=== PATIENT | female | born 1940 | race Caucasian/White ===

== ENCOUNTER 2019-07-08 10:37 | Outpatient (CLI) | payer MEDICARE, SELFPAY ==
--- NOTE | ~2019-07-08 | MM_ITS ---
EXAMINATION: MM screening [facility] BI w gildardo HISTORY: Screening mammogram TECHNIQUE: Craniocaudal and mediolateral oblique 3-D tomosynthesis images were obtained and synthetic 2-D images were generated. CAD analysis was submitted and interpreted. COMPARISON: 06/18/2018, 06/16/2017, 05/20/2016 BREAST PARENCHYMAL COMPOSITION: There are scattered areas of fibroglandular density. FINDINGS: RIGHT BREAST: There is a 7 mm low density mass in the anterior/middle third of the outer breast 5 cm from the nipple (CC slice: , MLO slice: ). LEFT BREAST: There is no evidence of suspicious mass, calcification, or architectural distortion to s uggest malignancy. There has been no significant interval change. IMPRESSION: 1. Right breast mass. 2. Additional mammographic views and possible breast ultrasound are recommended. BI-RADS Category 0: Incomplete: Needs additional imaging evaluation. Reviewed, dictated and finalized at location A. IMPRESSION: 1. Right breast mass. 2. Additional mammographic views and possible breast ultrasound are recommended . BI-RADS Category 0: Incomplete: Needs additional imaging evaluation.
== END 2019-07-08 10:38 | disposition home or self-care (01) ==
LOC: ANHIMG 10:41
PROVIDERS: PCP Internal Medicine; Visit Provider Internal Medicine
DX: Z12.31 Encounter for screening mammogram for malignant neoplasm of breast (principal); R92.8 Other abnormal and inconclusive findings on diagnostic imaging of breast
CPT/HCPCS: 77063; 77067

== ENCOUNTER 2019-07-15 13:06 | Outpatient (CLI) | payer MEDICARE, SELFPAY ==
--- NOTE | ~2019-07-15 | MMUS_ITS ---
EXAMINATION: MM diagnostic mammo unilat RT, US breast RT limited HISTORY: Follow-up right breast mass TECHNIQUE: Additional 3-D tomosynthesis images of the right breast were performed and synthetic 2-D i mages were generated. CAD analysis was submitted and interpreted. High resolution right breast ultras ound was performed. COMPARISON: 07/08/2019 FINDINGS: MAMMOGRAPHIC FINDINGS: The breasts are heterogenously dense, which may obscure small masses. There is a 7 mm circumscribed m ass mid outer aspect of the right breast. There are no suspicious calcifications or architectural dis tortion. ULTRASOUND: Right breast ultrasound: At 9:00, 2 cm from the nipple, there is a simple cyst measuring 7 x 7 x 4 mm corresponding to the mas s identified by mammogram. No other discrete mass is identified. No sonographic evidence for malignan cy. IMPRESSION: 1. No evidence for malignancy in the right breast. Benign findings. 2. Routine yearly screening mammogram and regular clinical breast examination are recommended. BI-RADS Category 2: Benign finding(s). Reviewed, dictated and finalized at location A. IMPRESSION: 1. No evidence for malignancy in the right breast. Benign findings. 2. Routine yearly screening mammogram and regular clinical breast examination a re recommended. BI-RADS Category 2: Benign finding(s).
== END 2019-07-15 13:07 | disposition home or self-care (01) ==
LOC: ANHIMG 13:08
PROVIDERS: PCP Internal Medicine; Visit Provider Internal Medicine
DX: R92.8 Other abnormal and inconclusive findings on diagnostic imaging of breast (principal)
CPT/HCPCS: 76642; 77065

== ENCOUNTER 2020-07-16 14:45 | Outpatient (CLI) | payer MEDICARE, SELFPAY ==
--- NOTE | ~2020-07-16 | MM_ITS ---
EXAMINATION: MM screening [facility] BI w igldardo HISTORY: Screening TECHNIQUE: Craniocaudal and mediolateral oblique 3-D tomosynthesis images were obtained and synthetic 2-D images were generated. CAD analysis was submitted and interpreted. COMPARISON: Comparison to multiple prior studies sequentially, with oldest reviewed study dated 11/2015. BREAST PARENCHYMAL COMPOSITION: Breast composed of scattered areas of fibroglandular density FINDINGS: There is no evidence of suspicious mass, calcification, or architectural distortion to sugg est malignancy in either breast. There has been no suspicious interval change. IMPRESSION: 1. No mammographic evidence of malignancy. 2. Recommend routine screening mammography in one year. BI-RADS Category 1: Negative Reviewed, dictated and finalized at location A.
== END 2020-07-16 14:46 | disposition home or self-care (01) ==
PROVIDERS: PCP Internal Medicine; Visit Provider Internal Medicine
DX: Z12.31 Encounter for screening mammogram for malignant neoplasm of breast (principal)
CPT/HCPCS: 77063; 77067

== ENCOUNTER 2021-08-17 14:18 | Outpatient (CLI) | payer MEDICARE, SELFPAY ==
--- NOTE | ~2021-08-17 | MM_ITS ---
EXAMINATION: MM screening [facility] BI w gildardo HISTORY: Screening mammogram TECHNIQUE: Craniocaudal and mediolateral oblique 3-D tomosynthesis images were obtained and synthetic 2-D images were generated. CAD analysis was submitted and interpreted. COMPARISON: 07/16/2020, 07/15/2019, 07/18/2019, 06/18/2018 BREAST PARENCHYMAL COMPOSITION: There are scattered areas of fibroglandular density. FINDINGS: There is no suspicious mass, calcification, or architectural distortion to suggest malignan cy in either breast. There has been no suspicious interval change. IMPRESSION: 1. No mammographic evidence of malignancy. 2. Recommend routine screening mammography while the patient remains in good health. BI-RADS Category 1: Negative Reviewed, dictated and finalized at location A. IMPRESSION: 1. No mammographic evidence of malignancy. 2. Recommend routine screening mammography while the patient remains in good he alth. BI-RADS Category 1: Negative
== END 2021-08-17 14:19 | disposition home or self-care (01) ==
PROVIDERS: PCP Internal Medicine; Visit Provider Internal Medicine
DX: Z12.31 Encounter for screening mammogram for malignant neoplasm of breast (principal)
CPT/HCPCS: 77063; 77067

== ENCOUNTER 2022-04-21 11:10 | Outpatient (CLI) | payer MEDICARE, SELFPAY ==
--- NOTE | ~2022-04-21 | XR_ITS ---
XR hip BI 2V w AP pelvis DATE: 04/21/2022 11:35 INDICATION: Bilateral groin pain, right greater than left TECHNIQUE: AP pelvis. AP and lateral views of each hip. COMPARISON: July 28, 2011 left hip 01/20/2011 bilateral hips FINDINGS: Osteitis pubis. Osteopenia. Normal alignment at the pubic symphysis and sacroiliac joints as well as hip joints. No pelvic fracture or bone destruction. No fracture or dislocation, avascular necrosis or bone destru ction of either hip is detected. There is a prominent of fecal material in the rectum and colon. IMPRESSION: Osteitis pubis Osteopenia Reviewed, dictated and finalized at location L. RINARY MILK SPECIALIST IMPRESSION: Osteitis pubis Osteopenia
== END 2022-04-21 11:11 | disposition home or self-care (01) ==
LOC: ANHIMG 11:16
PROVIDERS: PCP Internal Medicine; Visit Provider Nurse Practitioner Adult Health
DX: M25.559 Pain in unspecified hip (principal); M86.8X8 Other osteomyelitis, other site; M85.859 Other specified disorders of bone density and structure, unspecified thigh
CPT/HCPCS: 73521

== ENCOUNTER 2022-11-11 13:28 | Outpatient (CLI) | payer MEDICARE, SELFPAY ==
--- NOTE | ~2022-11-11 | MM_ITS ---
EXAMINATION: MM screening [facility] BI w gildardo HISTORY: Screening mammogram TECHNIQUE: Craniocaudal and mediolateral oblique 3-D tomosynthesis images were obtained and synthetic 2-D images were generated. CAD analysis was submitted and interpreted. COMPARISON: 08/17/2021, 07/16/2020, 07/15/2019, 07/08/2019 BREAST PARENCHYMAL COMPOSITION: There are scattered areas of fibroglandular density. FINDINGS: No suspicious mass, calcification, or architectural distortion are identified in either nyasia ast to suggest malignancy. There has been no suspicious interval change. IMPRESSION: 1. No mammographic evidence of malignancy. 2. Recommend routine screening mammography while the patient remains in good health. BI-RADS Category 1: Negative Reviewed, dictated and finalized at location A. IMPRESSION: 1. No mammographic evidence of malignancy. 2. Recommend routine screening mammography while the patient remains in good he alth. BI-RADS Category 1: Negative
== END 2022-11-11 13:29 | disposition home or self-care (01) ==
PROVIDERS: PCP Internal Medicine; Visit Provider Internal Medicine
DX: Z12.31 Encounter for screening mammogram for malignant neoplasm of breast (principal)
CPT/HCPCS: 77063; 77067

== ENCOUNTER 2024-02-09 10:07 | Outpatient (CLI) | payer MEDICARE, SELFPAY ==
--- NOTE | ~2024-02-09 | MM_ITS ---
EXAMINATION: MM screening [facility] BI w gildardo HISTORY: Screening TECHNIQUE: Craniocaudal and mediolateral oblique 3-D tomosynthesis images were obtained and synthetic 2-D images were generated. CAD analysis was submitted and interpreted. COMPARISON: Comparison to multiple prior studies sequentially, with oldest reviewed study dated 06/18. BREAST PARENCHYMAL COMPOSITION: Not dense: There are scattered areas of fibroglandular density. FINDINGS: There is no evidence of suspicious mass, calcification, or architectural distortion to sugg est malignancy in either breast. There has been no suspicious interval change. IMPRESSION: 1. No mammographic evidence of malignancy. 2. Recommend routine screening mammography in one year. BI-RADS Category 1: Negative Reviewed, dictated and finalized at location B. ER KILLER
== END 2024-02-09 10:08 | disposition home or self-care (01) ==
LOC: ANHIMG 10:12
PROVIDERS: PCP Internal Medicine; Visit Provider Internal Medicine
DX: Z12.31 Encounter for screening mammogram for malignant neoplasm of breast (principal)
CPT/HCPCS: 77063; 77067

== ENCOUNTER 2024-03-31 09:44 | Emergency (ER) | payer MEDICARE, SELFPAY ==
--- NOTE | ~2024-03-31 | XR_ITS ---
EXAMINATION: XR chest 2V DATE: 03/31/2024 10:23 INDICATION: Cough. Failed antibiotic therapy. TECHNIQUE: PA and lateral views of the chest were obtained. COMPARISON: Chest radiograph dated 11/03/2006 FINDINGS: The lungs remain clear with no focal airspace opacities, pulmonary edema, pleural effusion or pneumot horax. The cardiomediastinal silhouette is normal. Moderate thoracic spondylosis. Cholecystectomy cli ps in the upper abdomen. IMPRESSION: 1. No acute cardiopulmonary disease. Reviewed, dictated and finalized at location A. IUM CARD CANCELLATION CLERK
[2024-03-31 09:52] VITALS: BP 137/50; PULSE 85; RESP 20; TEMP 36.8; O2SAT 96
--- NOTE | 2024-03-31 10:13 | ED_ITS ---
HPI - URI/Sore Throat General Chief Complaint: Upper Respiratory Infection Stated Complaint: breathing prob, cough History of Present Illness HPI Narrative: patient is an 84-year-old female, past medical history significant for spinal stenosis and chronic back pain, presents to [facility] with 2 week history of URI symptoms, for which she completed Zithromax and oral steroids 4 days ago. She states that she never really felt much better while taking the medication and yesterday she began feeling worse, now with a productive cough. She has had some mild shortness of breath. She denies chest pain, orthopnea, abdominal pain, nausea vomiting or diarrhea. She has had no urinary symptoms. She does have a rescue inhaler but has not used it today. She denies any additional associated symptoms modifying factors. Related Data Home Medications ?Medication ?Instructions ?Recorded ?Confirmed ?Last Taken ?Type albuterol sulfate 90 mcg/actuation inhalation 03/31/24 Unknown History aerosol inhaler atorvastatin 10 mg tablet mg 03/31/24 Unknown History omeprazole magnesium PO 03/31/24 Unknown History Allergies Allergy/AdvReac Type Severity Reaction Status Date / Time latex Allergy Unknown Unknown Verified 03/31/24 09:59 lovastatin Allergy Unknown STATINS Verified 05/24/22 15:15 CAUSE BRUISING NKFA Allergy Unknown Unknown Uncoded 05/24/22 15:15 Review of Systems ENT: Comments: refer to HPI Respiratory: Comments: refer to HPI [facility] Past Medical History Medical History Lumbar spondylosis Low back pain Arthritis of finger Pain in right hand Spinal stenosis Sacroiliac pain Surgical History Surgical History H/O shoulder surgery History of hysterectomy Hx of cholecystectomy Family History Family History Other Acute myocardial infarction Breast cancer Diabetes mellitus Heart disease Hypertension Social History Social History Smoking status: Never smoker Alcohol intake: never Substance use: never Substance use type: does not use Lack of Transportation: No Lack of Food: Never True Current Housing: I Have Housing Concerned About Future Housing: No Difficulty Paying Gas/Electric Bills: No Difficulty Paying for Meds: No Currently Unemployed: No Education: Decline to Answer Difficulty w/ Childcare or Family Care: No Living arrangements: with family Exam Const: General: healthy appearing, no acute distress and alert Nutritional Appearance: well nourished Orientation/consciousness: patient oriented x3 Limitations: no limitations Other: well-groomed HENMT: Head: normal to inspection Face/Nose/Sinus: Normal external nose present and Normal nares present Mouth: Yes Normal oral and palatal mucosa present, Yes lip normal and Yes moist mucous membranes Teeth and gingiva: dentition normal Throat: posterior oropharynx normal and uvula midline Eyes: Conjunctivae: conjunctivae normal Pupils: Equal, round and reactive pupils present EOM: EOMs intact bilaterally Direct Ophthalmoscopy: no photophobia Neck: Neck: normal visual inspection, no lymphadenopathy and no meningeal signs Resp: Effort & Inspection: normal respiratory effort Auscultation: crackles on the right at the base Other: no wheezing noted, no stridor Cardio: Rate: regular rate Rhythm: regular rhythm Back/Spine/Pelvis: Back: no CVA tenderness Skin: General skin exam: normal color Rashes: no rashes Wounds: no wounds Neuro: General: patient oriented x3, moves all extremities, no meningeal signs, no focal motor deficits and CN's II-XI intact bilaterally Cranial nerves: Yes Nystagmus not present Speech: normal speech Gait exam (Neuro): Normal gait present Extrem: General: normal to inspection, no clubbing, cyanosis or edema and no pedal edema Other: no calf tenderness to palpation, no palpable cord bilaterally, no pitting edema or asymmetry of the lower limbs Psych: Mental Status: mental status grossly normal Course Course Level of Care: [facility] Visit ([id number]) Vital Signs Vital signs: Vital Signs Temperature 36.8 C 03/31/24 09:52 Pulse Rate 85 03/31/24 09:52 Respiratory Rate 20 03/31/24 09:52 Blood Pressure 137/50 L 03/31/24 09:52 Pulse Oximetry 96 03/31/24 09:52 Oxygen Delivery Room Air 03/31/24 09:52 Temperature 36.8 C 03/31/24 09:52 Pulse Rate 85 03/31/24 09:52 Respiratory Rate 20 03/31/24 09:52 Blood Pressure 137/50 L 03/31/24 09:52 Pulse Oximetry 96 03/31/24 09:52 Oxygen Delivery Room Air 03/31/24 09:52 Discharge Plan Discharge Clinical Impression: Bronchitis Patient Disposition: Home, Self-Care Condition: Stable Instructions: Antibiotic Form, Acute Bronchitis (ED) Additional Instructions: START AND COMPLETE ORAL STEROIDS DIRECTED. PUSH FLUIDS AND REST. USE INHALER EVERY 4-6 HOURS FOR THE NEXT 1-2 DAYS, THEN YOU MAY REDUCE THE FREQUENCY TO EVERY 4-6 HOURS NEEDED FOR WHEEZING. IF YOUR SYMPTOMS WORSEN IN ANY WAY, PROCEED TO THE EMERGENCY DEPARTMENT. OTHERWISE FOLLOW-UP WITH YOUR PRIMARY CARE PROVIDER IN 3-5 DAYS WITHOUT FAIL. Patient Language: Syriac Prescriptions: New prednisone 10 mg tablet 10 mg PO DIRECTED Qty: 38 0RF Rx Instructions: TAKE 4 TABS PO DAILY DAYS 1-5, THEN 3 TABS PO DAILY DAYS 6-8, THEN 2 TABS PO DAILY DAYS 9-11 THEN 1 TAB PO DAILY DAYS 12-14 No Action atorvastatin 10 mg tablet albuterol sulfate 90 mcg/actuation HFA aerosol inhaler INHALATION omeprazole magnesium [Prilosec OTC] PO Follow-up/Referrals: Agustín,Korey Rocha MD [Primary Care Provider] - Time of Disposition: 10:49
--- NOTE | 2024-03-31 10:39 | ED.URI ---
HPI - URI/Sore Throat General Chief Complaint: Upper Respiratory Infection Stated Complaint: breathing prob, cough History of Present Illness HPI Narrative: patient is a 84-year-old female, presents to [facility] with 2 week history of URI symptoms, for which she was treated a little over 1 week ago with Zithromax, short prednisone course and an inhaler, completing therapy 4 days ago with his home symptom improvement until yesterday when she began feeling unwell again. He reports a productive cough, malaise and laryngitis. She has not had fever. She denies hemoptysis, nausea vomiting diarrhea or urinary symptoms. She has not used her inhaler today. She denies any additional associated symptoms modifying factors. Related Data Home Medications ?Medication ?Instructions ?Recorded ?Confirmed ?Last Taken ?Type albuterol sulfate 90 mcg/actuation inhalation 03/31/24 Unknown History aerosol inhaler atorvastatin 10 mg tablet mg 03/31/24 Unknown History omeprazole magnesium PO 03/31/24 Unknown History Allergies Allergy/AdvReac Type Severity Reaction Status Date / Time latex Allergy Unknown Unknown Verified 03/31/24 09:59 lovastatin Allergy Unknown STATINS Verified 05/24/22 15:15 CAUSE BRUISING NKFA Allergy Unknown Unknown Uncoded 05/24/22 15:15 Review of Systems ENT: Comments: refer to HPI Respiratory: Comments: Refer to HPI [facility] Past Medical History Medical History Lumbar spondylosis Low back pain Arthritis of finger Pain in right hand Spinal stenosis Sacroiliac pain Surgical History Surgical History H/O shoulder surgery History of hysterectomy Hx of cholecystectomy Family History Family History Other Acute myocardial infarction Breast cancer Diabetes mellitus Heart disease Hypertension Social History Social History Smoking status: Never smoker Alcohol intake: never Substance use: never Substance use type: does not use Lack of Transportation: No Lack of Food: Never True Current Housing: I Have Housing Concerned About Future Housing: No Difficulty Paying Gas/Electric Bills: No Difficulty Paying for Meds: No Currently Unemployed: No Education: Decline to Answer Difficulty w/ Childcare or Family Care: No Living arrangements: with family Exam Const: General: cooperative Nutritional Appearance: average body habitus and well nourished HENMT: Head: normal to inspection, No palpable skull fracture present and normocephalic Ears: hearing grossly normal bilaterally, external ears normal, TM's normal bilaterally, TM normal on the right, TM normal on the left and EAC's normal Face and sinus: normal facial exam and sinuses nontender Mouth: Yes Normal oral and palatal mucosa present, Yes lip normal, Yes tongue normal, Yes oropharynx normal and Yes moist mucous membranes Eyes: General: appearance normal, both eyes and all related structures Conjunctivae: conjunctivae normal Neck: Neck: normal visual inspection, full ROM and no lymphadenopathy Thyroid: thyroid normal Chest: Chest palpation & inspection: normal inspection of the chest Resp: Effort & Inspection: normal respiratory effort and able to speak in complete sentences Auscultation: crackles on the right at the base Cardio: Jugular venous distension: no JVD Rate: regular rate Rhythm: regular rhythm Heart sounds: S1 normal heart sound present and S2 normal heart sound present Peripheral pulses: Peripheral pulses 2+ throughout Back/Spine/Pelvis: Back: no CVA tenderness Cervical Spine: normal cervical lordosis Skin: General skin exam: normal color and no rashes or lesions noted Lesions: no lesions Rashes: no rashes Neuro: General: oriented to person, oriented to place, oriented to time, patient oriented x3, gait normal, tone normal, moves all extremities, no focal motor deficits and CN's II-XI intact bilaterally Extrem: General: normal to inspection, full ROM, capillary refill normal, normal exam except as noted, no pedal edema and no calf tenderness Course Course Emergency Course: chest x-ray is unremarkable for acute findings. Suspect patient has a postinflammatory state, will resume steroids for a steroid taper, she is encouraged to use her inhaler every 4-6 hours next 1-2 days, she may take Zyrtec or Claritin as directed [id number]. She is encouraged to proceed to the ER if her condition worsens in any way. Patient verbalized understanding she is agreeable to discharge plan of care. Level of Care: [facility] Visit ([id number]) Vital Signs Vital signs: Vital Signs Temperature 36.8 C 03/31/24 09:52 Pulse Rate 85 03/31/24 09:52 Respiratory Rate 20 03/31/24 09:52 Blood Pressure 137/50 L 03/31/24 09:52 Pulse Oximetry 96 03/31/24 09:52 Oxygen Delivery Room Air 03/31/24 09:52 Temperature 36.8 C 03/31/24 09:52 Pulse Rate 85 03/31/24 09:52 Respiratory Rate 20 03/31/24 09:52 Blood Pressure 137/50 L 03/31/24 09:52 Pulse Oximetry 96 03/31/24 09:52 Oxygen Delivery Room Air 03/31/24 09:52 MDM - URI/Sore Throat MDM Narrative Medical decision making narrative: Prednisone taper Differential Diagnosis Differential diagnosis: Likely upper respiratory infection, otitis media, sinusitis, viral infection, bronchitis and other ( pneumonia) Discharge Plan Discharge Clinical Impression: Bronchitis Patient Disposition: Home, Self-Care Condition: Stable Instructions: Antibiotic Form, Acute Bronchitis (ED) Additional Instructions: START AND COMPLETE ORAL STEROIDS DIRECTED. PUSH FLUIDS AND REST. USE INHALER EVERY 4-6 HOURS FOR THE NEXT 1-2 DAYS, THEN YOU MAY REDUCE THE FREQUENCY TO EVERY 4-6 HOURS NEEDED FOR WHEEZING. IF YOUR SYMPTOMS WORSEN IN ANY WAY, PROCEED TO THE EMERGENCY DEPARTMENT. OTHERWISE FOLLOW-UP WITH YOUR PRIMARY CARE PROVIDER IN 3-5 DAYS WITHOUT FAIL. Patient Language: Lithuanian Prescriptions: New prednisone 10 mg tablet 10 mg PO DIRECTED Qty: 38 0RF Rx Instructions: TAKE 4 TABS PO DAILY DAYS 1-5, THEN 3 TABS PO DAILY DAYS 6-8, THEN 2 TABS PO DAILY DAYS 9-11 THEN 1 TAB PO DAILY DAYS 12-14 No Action atorvastatin 10 mg tablet albuterol sulfate 90 mcg/actuation HFA aerosol inhaler INHALATION omeprazole magnesium [Prilosec OTC] PO Follow-up/Referrals: Agustín,Korey Rocha MD [Primary Care Provider] - Time of Disposition: 10:49
--- OUTSIDE RECORDS SUMMARY | 2024-04-07 05:35 | XMS_ITS | Encounter Summary ---
Author Organization [facility] Address [address] [place] [address] Care Team Providers Care Vine Pruner Name Role Phone Korey Randolph MD Primary Care Provider Reason for Visit * Reason Comments Double Vision Strabismus Encounter Details Date Type Department Care Team (Late st Contact Info) Description 10/02/2017 10:45 AM CDT Office Visit [facility] Ophthalmology [facility] [place] [address] Denice Martinez Esotropia (Primary Dx); Diplopia Social History Tobacco Use Types Packs/Day Years Used Date Smoking Tobacco: Never Smokeless Tobacco: Never Sex and Gender Information Value Date Recorded Sex Assigned at Not on file Gender Identity Not on file Sexual Orientation Not on file documented as of this encounter Progress Notes * Denice Martinez - 10/02/2017 5:47 PM CDT Impression: Has been noting some overall decrease in the vision in both eyes since last visit. 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 She reads with OTC readers without prism. Today's exam shows a slight increase in the ET but she is still able to fuse with the 10^ LESLY Fresnel prism. She benefits from +3.00 readers (was using +2.50s.) She is pseudophakic OU x 3-4 years, and now sees Dr Pankaj Baez. Her distance vision today was 20/25-2 OD and 20/50- OS and OD did not improve with a pinhole. A slit lamp exam today (undilated with small pupils) by Dr Newby suggested PCO OD>OS. Some of the poor binocular acuity may result from inadequately corrected distance ET or the presence of the Fresnel prism OS. However monocularly each eye was still blurred even with the prism removed. Plan: Prism was cleaned and reapplied for now. Will refer her back to Dr Baez to evaluate for PCO. If not, to refract for best distance acuity, in case I decide to incorporate. See back depending on what Dr Baez decides. [facility] I have reviewed the notes by [facility] and discussed the findings with her. Sensorimotor examination showed age related distance esotropia. I agree with the plans as noted. [facility] documented in this encounter Plan of Treatment Not on file documented as of this encounter Visit Diagnoses Diagnosis Esotropia- Primary Diplopia documented in this encounter Care Teams Vine Pruner Relationship Specialty Start Date End Date Korey Randolph MD [address] [place] [address] [id number] PCP - General 10/02/17 documented as of this encounter
--- OUTSIDE RECORDS SUMMARY | 2024-04-07 05:35 | XMS_ITS | Patient Health Summary ---
Author Organization [facility] Address [address] [place] [address] Care Team Providers Care Painter Name Role Phone Korey Randolph MD Primary Care Provider Note from [facility],non-owned Affiliates and Associated Physician Practices is amultiple site organization consisting of ambulatory clinics and hospital sitesin [place], [place]. This disclosure is being madepursuant to the Care Everywhere program and may not contain all information available regarding this patient. Last updated 17.[facility] Allergies No known active allergies Medications * Be aware that medications may not be up to date on this document. Alwaysverify current medications with the patient. * aspirin (ASPIRIN) 81 MG tablet Take 81 mg by mouth once daily * atorvastatin (LIPITOR) 10 MG tablet Take 10 mg by mouth at bedtime * Vitamin D, Cholecalciferol, 1000 UNITS CAPS * Cyanocobalamin (VITAMIN B-12 PO) * Ferrous Sulfate (IRON SUPPLEMENT PO) Take by mouth as needed * vitamin E (LIQUI-E) 400 UNIT/15ML solution * [place]-3 Fatty Acids (FISH OIL) 500 MG capsule Take by mouth once daily * LYSINE PO Take by mouth once daily * Lactobacillus (ACIDOPHILUS PO) Take by mouth once daily * Multiple Vitamins-Minerals (PRESERVISION AREDS PO) Take by mouth once daily Active Problems Problem Noted Date Diagnosed Date Esotropia 10/20/2017 Diplopia 10/20/2017 Social History Tobacco Use Types Packs/Day Years Used Date Smoking Tobacco: Never Smokeless Tobacco: Never Sex and Gender Information Value Date Recorded Sex Assigned at Not on file Gender Identity Not on file Sexual Orientation Not on file Procedures * PAP THINPREP(Performed 12/03/2009) * PAP SMEAR 1 SLIDE(Performed 11/20/2009) Results * PAP THINPREP (12/03/2009) Cervical swab (specimen) PART OF UTERINE CERVIX / Unknown 12/03/2009 [facility] - 12/18/2009 10:25 AM CDT Preferred Lab:->OTHER EXTERNAL LAB Lizzeth Harper MD LAB - PATHOL OGY/CYTOLOGY ORDERABLES Performing Organization Address [facility]/State/ZIP Co de Phone Number [facility] * PAP SMEAR 1 SLIDE (11/20/2009) Other (qualifier value) 11/20/2009 [facility] - 11/27/2009 7:32 AM CDT This external order was created through the Results Console. Historical Provider LAB - PATHOLOGY/C YTOLOGY ORDERABLES Performing Organization Address City/[facility]/ZIP Co de Phone Number [facility] Care Teams Painter Relationship Specialty Start Date End Date Korey Randolph MD [address] [id number] PCP - General 10/02/17
--- OUTSIDE RECORDS SUMMARY | 2024-04-07 05:35 | XMS_ITS | Clinical Summary ---
Author Organization [facility] Address [address] [place] [address] Care Team Providers Care Coal Hauler Operator Name Role Phone Korey Randolph MD Primary Care Provider Source Comments [facility],non-owned Affiliates and Associated Physician Practices is amultiple site organization consisting of ambulatory clinics and hospital sitesin [place], [place], [place] and [place]. This disclosure is being madepursuant to the Care Everywhere program and may not contain all information available regarding this patient. Last updated 17.[facility] Allergies No known active allergies Medications * Be aware that medications may not be up to date on this document. Alwaysverify current medications with the patient. Medication Sig Dispensed Refills Start Date End Date Status aspirin (ASPIRIN) 81 MG tablet Take 81 mg by mouth once daily Active atorvastatin (LIPITOR) 10 MG tablet Take 10 mg by mouth at bedtime Active Vitamin D, Cholecalciferol, 1000 UNITS CAPS Active Cyanocobalamin (VITAMIN B-12 PO) Active Ferrous Sulfate (IRON SUPPLEMENT PO) Take by mouth as needed Active vitamin E (LIQUI-E) 400 UNIT/15ML solution Ac tive [place]-3 Fatty Acids (FISH OIL) 500 MG capsule Take by mouth once daily Active LYSINE PO Take by mouth once daily Active Lactobacillus (ACIDOPHILUS PO) Take by mouth once daily Active Multiple Vitamins-Minerals (PRESERVISION AREDS PO) Take by mouth once daily Active Active Problems Problem Noted Date Diagnosed Date Esotropia 10/20/2017 Diplopia 10/20/2017 Social History Tobacco Use Types Packs/Day Years Used Date Smoking Tobacco: Never Smokeless Tobacco: Never Sex and Gender Information Value Date Recorded Sex Assigned at Not on file Gender Identity Not on file Sexual Orientation Not on file Plan of Treatment Health Maintenance Due Date Last Done Comments BONE DENSITY TESTING 1941 MEDICARE AWV ? 12 MONTHS 1941 DTAP/TDAP/TD VACCINES (1 - Tdap) 1960 ZOSTER VACCINE (1 of 2) 1991 PNEUMOCOCCAL VACCINE 65+ (1 of 1 - PCV) 2006 Respiratory Syncytial Virus (RSV) Vaccine Pt: or over 60 yrs (1 - 1-dose 75+ series) 2016 DEPRESSION SCREENING 04/03/2023 COVID-19 VACCINE (1 - 2023-2 5 season) 2023 INFLUENZA VACCINE (#1) 2023 HEPATITIS B VACCINE Aged Out No longe r eligible based on patient's age to complete this topic HIB VACCINE Aged Out No longer eligi ble based on patient's age to complete this topic HPV VACCINE Aged Out No longer eligi ble based on patient's age to complete this topic MENINGOCOCCAL VACCINE Aged Out No celeste candace eligible based on patient's age to complete this topic Care Teams Coal Hauler Operator Relationship Specialty Start Date End Date Korey Randolph MD [address] [facility] [address] [place] [address] PCP - General 10/02/17
--- OUTSIDE RECORDS SUMMARY | 2024-04-07 05:35 | XMS_ITS | Referral Summary ---
Author Organization [facility] Address [address] [place] [address] Care Team Providers Care Electronic Equipment Repairer Name Role Phone Korey Randolph MD Primary Care Provider Source Comments [facility],non-owned Affiliates and Associated Physician Practices is amultiple site organization consisting of ambulatory clinics and hospital sitesin [place], [place], [place] and [place]. This disclosure is being madepursuant to the Care Everywhere program and may not contain all information available regarding this patient. Last updated 17.[facility] Allergies No known active allergies Medications * [...] E (LIQUI-E) 400 UNIT/15ML solution Ac tive [place]-3 Fatty Acids (FISH OIL) 500 MG capsule [...] Orientation Not on file Plan of Treatment Not on file Care Teams Electronic Equipment Repairer Relationship Specialty Start Date End Date Korey Randolph MD [address] [facility] [address] [place] [id number] PCP - General 10/02/17
--- OUTSIDE RECORDS SUMMARY | 2024-04-07 05:36 | XMS_ITS | Encounter Summary ---
Author Organization [facility] Address [address] [place] [address] Care Team Providers Care Building Guard Deputy Sheriff Name Role Phone Korey Randolph MD Primary Care Provider Reason for Visit * Reason Onset Date Comments PA needed for Prolia to be done at [facility] 4 Encounter Details Date Type Department Care Team (Late st Contact Info) Description 01/30/2024 Telephone [facility] Endocrinology at [address] [address] Evelyn Hoyt LPN PA needed for Prolia to be done at [facility] Social History Tobacco Use Types Packs/Day Years Used Date Smoking Tobacco: Never Smokeless Tobacco: Never AUDIT-C Answer Date Recorded Q1: How often do you have a drink containing alcohol? Never 06/06/2023 Q2: How many drinks containi ng alcohol do you have on a typical day when you are drinking? Patient does not drink Q3: How often do you have si x or more drinks on one occasion? Never 06/06/2023 PHQ-2 Answer Date Recorded PHQ-2 Total Score (If total score is 3 or more points, staff should administer the PHQ-9) 0 01/15/2024 Personal Safety Answer Date Recorded Have you ever been in or are you currently in a harmful physical or emotional relationship or is someone making you feel afraid or unsafe? Denies 05/31/2023 Comments No Sex and Gender Information Value Date Recorded Sex Assigned at Not on file Legal Sex Female 11:27 PM PLASTERER HELPER Gender Identity Female 08/18/2019 3:36 PM CDT Sexual Orientation Straight 08/18/2019 3: 35 PM CDT documented as of this encounter Miscellaneous Notes * Telephone Encounter - Connie Vasquez - 02/16/2024 10:06 AM PLASTERER HELPER noted TERER HELPER * Telephone Encounter - Evelyn Hoyt LPN - 02/14/2024 12:15 PM PLASTERER HELPER Pt hasn't designated her insurance plan for 2024 yet. 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 We received the request for her to get her prolia here however we will need auth for our facility. We are now [facility] and tax ID [id number]. Thanks documented in this encounter Plan of Treatment Not on file documented as of this encounter Visit Diagnoses Not on filedocumented in this encounter Care Teams Building Guard Deputy Sheriff Relationship Specialty Start Date End Date Korey Randolph MD PCP - General Internal Medicine 05/23/17 documented as of this encounter
--- OUTSIDE RECORDS SUMMARY | 2024-04-07 05:36 | XMS_ITS | Encounter Summary ---
Author Organization [facility] Address [address] [place] [address] Care Team Providers Care Picking Crew Supervisor Name Role Phone Korey Randolph MD Primary Care Provider Reason for Referral * Diagnostic Imaging (Routine) - Closed Specialty Diagnoses / Procedures Referred By Contac t Referred To Contact Diagnoses Spondylosis of lumbar region without myelopathy or radiculopathy Other specified disorders of bone density and structure, multiple sites Procedures DEXA Axial Skeleton Bone Density Multi Site Carl Dorado MD Phone: tel: fax: [address] [phone] Referral ID Status Reason Start Date Expiration Date Visits Re quested Visits Authorized [id number] Closed 08/30/2022 09/29/2023 1 1 Encounter Details Date Type Department Care Team (Late st Contact Info) Description 08/30/2022 Orders Only [facility] [address] [facility] [address] [place] [address] Lala Roblero, JESSICA Spondylosis of lumbar region without myelopathy or radiculopathy (Primary Dx); Other specified disorders of bone density and structure, multiple sites Social History Tobacco Use Types Packs/Day Years Used Date Smoking Tobacco: Never Smokeless Tobacco: Never AUDIT-C Answer Date Recorded Q1: How often do you have a drink containing alcohol? Never 08/25/2022 Q2: How many drinks containi ng alcohol do you have on a typical day when you are drinking? Patient does not drink Q3: How often do you have si x or more drinks on one occasion? Never 08/25/2022 PHQ-2 Answer Date Recorded PHQ-2 Total Score (If total score is 3 or more points, staff should administer the PHQ-9) 0 06/30/2022 Comments No Sex and Gender Information Value Date Recorded Sex Assigned at Not on file Legal Sex Female 11:27 PM CHEMICAL STRENGTH TESTER Gender Identity Female 08/18/2019 3:36 PM CDT Sexual Orientation Straight 08/18/2019 3: 35 PM CDT documented as of this encounter Progress Notes * Lala Roblero RN - 08/30/2022 4:47 PM CDT Dexa bone scan sent to [facility], we will wait for the results for possible back surgery. All records available on [facility]. They will call patient to schedule appointment documented in this encounter Plan of Treatment Not on file documented as of this encounter Results * DEXA Axial Skeleton Bone Density Multi Site (09/07/2022 9:48 AM CDT) Anatomical Region Laterality Modality Body N/A Other 09/08/2022 12:5 5 AM CDT Narrative 09/08/2022 9:45 AM CDT EXAM DESCRIPTION: DEXA AXIAL SKELETON BONE DENSITY 1 OR MORE SITES REASON FOR STUDY: 82 y/o ?? year old ??F ??with given history of screening. ?? Postmenopausal Cattle Farmer/Model: Certify (S/N [id number]) CLINICAL INFORMATION: Current height: ??56.8 ??inches ? Maximum height: ??59.5 ??inches ? Weight: ??141 ??pounds Risk factors: ??Postmenopausal COMPARISON: None available FINDINGS: AP LUMBAR SPINE L1-L4: Total BMD is 0.731 g/cm2 T-score is -2.9 LEFT HIP: Total BMD is 0.717 g/cm2 T-score is -1.8 Femoral neck BMD is 0.529 g/cm2 T-score is -2.9 ?? FRAX: FRAX not reported due to T-scores of hip, femoral neck and/or spine being at or below -2.5 (Osteoporosis). IMPRESSION: Osteoporosis. REFERENCE: Bone mineral density: ? Normal (T-score above or = -1.0) ? Low bone mass ??(T-score between -1.0 and -2.5) replaces the previously used term osteopenia ? Osteoporosis (T-score = or below -2.5) Medical evaluation for secondary causes of low bone mineral density may be appropriate. FRAX is a World Health Organization validated fracture risk assessment tool that calculates a person's 10 year probability of a major osteoporosis related fracture and hip fracture. ??According to the National Osteoporosis Foundation guidelines, postmenopausal women and men age 50 or older with low bone mass and a 10 year probability of a major osteoporosis related fracture = or greater than 20% or a 10 year probability of a hip fracture = or greater than 3% should be considered for treatment. For further information, including treatment recommendations, please refer to the 2019 ISCD Official Positions (http://www.iscd.org) and the NOF's Clinician's Guide to Prevention and Treatment of Osteoporosis (http://www.nof.org/professionals/clinical-guidelines) THIS IS AN ELECTRONICALLY VERIFIED FINAL REPORT 09/08/2022 9:45 AM - Electronically signed by ??Nilson Lara M.D. MF: [email or web address] D: ??09/08/2022 9:45 AM T: ??09/08/2022 9:45 AM Report ID: [id number] Reading Location: ??[id number] Procedure Note Nilson Lara MD - 09/08/2022 EXAM DESCRIPTION: DEXA AXIAL SKELETON BONE DENSITY 1 OR MORE SITES REASON FOR STUDY: 82 y/o year old F with given history of screening. Postmenopausal Cattle Farmer/Model: Certify (S/N [id number]) CLINICAL INFORMATION: Current height: 56.8 inches Maximum height: 59.5 inches Weight: 141 pounds Risk factors: Postmenopausal COMPARISON: None available FINDINGS: AP LUMBAR SPINE L1-L4: Total BMD is 0.731 g/cm2 T-score is -2.9 LEFT HIP: Total BMD is 0.717 g/cm2 T-score is -1.8 Femoral neck BMD is 0.529 g/cm2 T-score is -2.9 FRAX: FRAX not reported due to T-scores of hip, femoral neck and/or spine beingat or below -2.5 (Osteoporosis). IMPRESSION: Osteoporosis. REFERENCE: Bone mineral density: Normal (T-score above or = -1.0) Low bone mass (T-score between -1.0 and -2.5) replaces thepreviously used term osteopenia Osteoporosis (T-score = or below -2.5) Medical evaluation for secondary causes of low bone mineral density may be appropriate. FRAX is a World Health Organization validated fracture risk assessmenttool that calculates a person's 10 year probability of a major osteoporosisrelated fracture and hip fracture. According to the National OsteoporosisFoundation guidelines, postmenopausal women and men age 50 or older with low bonemass and a 10 year probability of a major osteoporosis related fracture = or greater than 20% or a 10 year probability of a hip fracture = or greaterthan 3% should be considered for treatment. For further information, including treatment recommendations, please referto the 2019 ISCD Official Positions (http://www.iscd.org) and the NOF's Clinician's Guide to Prevention and Treatment of Osteoporosis (http://www.nof.org/professionals/clinical-guidelines) THIS IS AN ELECTRONICALLY VERIFIED FINAL REPORT 09/08/2022 9:45 AM - Electronically signed by Nilson Lara M.D. MF: [email or web address] Report ID: [id number] Reading Location: [place] [address] Carl Doraod MD IMG DXA PROCEDURES Final Resu lt documented in this encounter Visit Diagnoses Diagnosis Spondylosis of lumbar region without myelopathy or radiculopathy- Primary Other specified disorders of bone density and structure, multiple sites Spondylosis of lumbar region without myelopathy or radiculopathy Other specified disorders of bone density and structure, multiple sites documented in this encounter Care Teams Picking Crew Supervisor Relationship Specialty Start Date End Date Korey Randolph MD PCP - General Internal Medicine 05/23/17 documented as of this encounter
--- OUTSIDE RECORDS SUMMARY | 2024-04-07 05:36 | XMS_ITS | Encounter Summary ---
Author Organization [facility] Address [address] [place] [address] Care Team Providers Care Services Engineer Name Role Phone Korey Randolph MD Primary Care Provider Reason for Visit * Reason Comments Follow-up Hospital / chest low n Encounter Details Date Type Department Care Team (Late st Contact Info) Description 06/06/2023 2:15 PM HOSPICE MUSIC THERAPIST Office Visit [facility] Primary Care at [address] [place] [address] Korey Randolph MD [address] [place] [address] [address] [place] [address] Annual physical exam (Primary Dx); Mixed hyperlipidemia; Bilateral exudative age-related macular degeneration, unspecified stage (HCC); Gastroesophageal reflux disease without esophagitis; Esophageal stricture; Spondylolisthesis at L4-L5 level; Benign paroxysmal positional vertigo due to bilateral vestibular disorder Social History Tobacco Use Types Packs/Day Years [...] points, staff should administer the PHQ-9) 0 06/06/2023 Personal Safety Answer Date Recorded Have you ever been in or are you currently in a harmful physical or emotional relationship or is someone making you feel afraid or unsafe? Denies 05/31/2023 Comments No Sex and Gender Information Value Date Recorded Sex Assigned at Not on file Legal Sex Female 11:27 PM HOSPICE MUSIC THERAPIST Gender Identity Female 08/18/2019 3:36 PM CDT Sexual Orientation Straight 08/18/2019 3: 35 PM CDT documented as of this encounter Last Filed Vital Signs Vital Sign Reading Time Taken Comments Blood Pressure 114/70 06/06/2023 2:09 PM HOSPICE MUSIC THERAPIST Pulse 76 06/06/2023 2:09 PM HOSPICE MUSIC THERAPIST Temperature 36.6 ??C (97.9 ??F) 06/06/2023 2:09 PM CS T Respiratory Rate 16 06/06/2023 2:09 PM HOSPICE MUSIC THERAPIST Oxygen Saturation 99% 06/06/2023 2:09 PM HOSPICE MUSIC THERAPIST Inhaled Oxygen Concentration - - Weight 65.8 kg (145 lb) 06/06/2023 2:09 PM HOSPICE MUSIC THERAPIST Height 144.8 cm (4' 9 ) 06/06/2023 2:09 PM HOSPICE MUSIC THERAPIST Body Mass Index 31.38 06/06/2023 2:09 PM HOSPICE MUSIC THERAPIST documented in this encounter Progress Notes * Korey Randolph MD - 06/06/2023 2:15 PM CST Meghana Dueñas is a 83 y.o. year old White Non- female here for an Annual Wellness Visit. Medicare Health Risk Assessment has been completed by the patient and scanned into the Media section of the chart. Based on my observation of the patient, review of Health Risk Assessment (HRA) and other records, this is my assessment and recommendation regarding fall risk, hearing impairment, home safety, ADLs, or any other issues identified in the HRA: The patient is here for her transition of care visit after being at [facility] last week she was admitted on May 30, 2023 and discharged onFebr2023 she was contacted by the [facility] on June 01, 2023 had her medications reconciled since being home her dizziness has improved she did try the lorazepam but it made her have diarrhea she thinks so she stopped that the Antivert was not doing much she did have a vestibular evaluation by Physical therapy and they did not think she needed any further intervention patient denies any headache she does have bad vision from her wet macular degeneration she is due to see her eye doctor next week she has been getting injection therapy she is worried that her eye problems or contributingto her dizziness but for now she has been doing okay she is able to drive and function without any d izziness or nausea this week. I, Korey Randolph MD have personally reviewed pertinent inpatient and/or ED records, including discharge medications and [employer] if applicable. This patient's discharge medication list has been reviewed and reconciled with her outpatient medication list and has also been reviewed with patient and/or caregiver. I have noted any changes. The patient is also here for annual Medicare wellness visit follow-up she is working with her neurosurgeon at [facility] and getting every six-month injections of Prolia to strengthen her back prior to possibly needing surgery on her lumbar spine right now she is pretty functional not really take any pain medicine she has no longer able to do the [employer] which she really misses where she was doing a lot of walking and jogging in years past She was moved to a new [facility] where she is still independent but has no maintenance on the outside she is very happy it sounds like she has a daughter nearby to help Problem List, Past Medical and Surgical History: Patient Active Problem List Diagnosis Gastroesophageal reflux disease without esophagitis Hyperlipidemia Esophageal stricture Bilateral exudative age-related macular degeneration (CMS/HCC) ([facility]) Vitamin D deficiency Spondylosis of lumbar region without myelopathy or radiculopathy Intermittent epigastric abdominal pain LLQ pain Stricture and stenosis of esophagus Gastroesophageal reflux disease Abdominal pain, epigastric Spondylolisthesis at L4-L5 level Other osteoporosis 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 pathological fracture Chest pain, unspecified type Past Medical History: Diagnosis Date Arthritis Bronchitis GERD (gastroesophageal reflux disease) Hyperlipidemia Osteoporosis Pneumonia Sleeping difficulties Vertigo Past Surgical History: Procedure Laterality Date APPENDECTOMY BLADDER NECK SUSPENSION CATARACT EXTRACTION CHOLECYSTECTOMY COLONOSCOPY 01/17/2014 ESOPHAGOGASTRODUODENOSCOPY 07/11/2022 HYSTERECTOMY TUBAL LIGATION UPPER GASTROINTESTINAL ENDOSCOPY Family History: Family History Problem Relation Age of Onset Alzheimer's disease Mother Osteoporosis Mother Arthritis Father Heart attack Father Heart disease Father Cancer Maternal Grandfather Social History: Social History Tobacco Use Smoking status: Never Smokeless tobacco: Never Substance and Sexual Activity Drug use: Never Sexual activity: Not Currently Partners: Male control/protection: Tubal Ligation Alcohol Use: Not At Risk (06/06/2023) AUDIT-C Frequency of Alcohol Consumption: Never Average Number of Drinks: Patient does not drink Frequency of Binge Drinking: Never Allergies: No Known Allergies Medications: Current Outpatient Medications: atorvastatin (LIPITOR) 10 mg tablet, Take 1 tablet (10 mg total) by mouth daily, Disp: 90 tablet, Rfl: 3 cholecalciferol (VITAMIN D-3) 1,000 unit capsule, Take by mouth daily , Disp: , Rfl: meclizine (ANTIVERT) 25 mg tablet, TAKE 1 TABLET(25 MG) BY MOUTH THREE TIMES DAILY NEEDED FOR DIZZINESS, Disp: 90 tablet, Rfl: 3 multivitamin with minerals tablet, Take 1 tablet by mouth daily, Disp: , Rfl: NON FORMULARY, FOR INPATIENT USE,, Take 10 mg by mouth daily Prevagen, Disp: , Rfl: pantoprazole DR (PROTONIX) 40 mg EC tablet, TAKE 1 TABLET(40 MG) BY MOUTH TWICE DAILY, Disp: 180 tablet, Rfl: 3 triamcinolone (KENALOG) 0.1 % cream, Apply topically 3 (three) times a day for 10 days, Disp: 80 g,Rfl: 0 vitamin E 400 unit capsule, Take 1 capsule (400 Units total) by mouth daily, Disp: , Rfl: Vitals: Vitals BP 114/70 (BP Location: Left arm, Patient Position: Sitting) Pulse 76 Temp 36.6 ??C (97.9 ??F) Resp 16 Ht 144.8 cm (4' 9 ) Wt 65.8 kg (145 lb) LMP (LMP Unknown) SpO2 99% BMI 31.38 kg/m?? Body mass index is 31.38 kg/m??. Exam: Physical Exam Vitals and nursing note reviewed. Constitutional: Appearance: Normal appearance. She is well-developed and normal weight. Comments: Weight is stable blood pressure is fine HENT: Head: Normocephalic and atraumatic. Right Ear: Tympanic membrane and external ear normal. Left Ear: Tympanic membrane and external ear normal. Nose: Nose normal. Mouth/Throat: Mouth: Mucous membranes are moist. Eyes: Extraocular Movements: Extraocular movements intact. Conjunctiva/sclera: Conjunctivae normal. Pupils: Pupils are equal, round, and reactive to light. Cardiovascular: Rate and Rhythm: Normal rate and regular rhythm. Heart sounds: Normal heart sounds. Pulmonary: Breath sounds: Normal breath sounds. Abdominal: General: Bowel sounds are normal. Palpations: Abdomen is soft. Musculoskeletal: General: Normal range of motion. Cervical back: Normal range of motion and neck supple. Skin: General: Skin is warm and dry. Comments: No suspicious skin lesions Neurological: Mental Status: She is alert and oriented to person, place, and time. Deep Tendon Reflexes: Reflexes are normal and symmetric. Psychiatric: Mood and Affect: Mood normal. Care Team Providers: Patient Care Team: Korey Randolph MD as PCP - General (Internal Medicine) Primary Pharmacy/DME suppliers: [id number] - [place] [address] [facility] [place] [address] [place] [place] [address] Detection of Cognitive Impairment: The patient does not have cognitive impairment based on direct observation, discussion with patientor family, or review of medical records. Health Maintenance: Health Maintenance Topics with due status: Overdue Topic Date Due DTaP/Tdap/Td Vaccine Never done Zoster Vaccine Never done Covid-19 Vaccine 12/02/2022 Influenza Vaccine 12/02/2022 Health Maintenance Topics with due status: Not Due Topic Last Completion Date Colon Cancer Screening-Colonoscopy 01/17/2014 Osteoporosis Screening-Bone Density Scan 09/07/2022 Breast Cancer Screening-Mammogram 11/11/2022 Fall Risk Assessment 06/06/2023 Depression Screening-PHQ 06/06/2023 Well Visit 65+ 06/06/2023 Health Maintenance Topics with due status: Completed Topic Last Completion Date Pneumococcal vaccine 65+ 02/26/2018 Health Maintenance Topics with due status: Discontinued Topic Date Due Colon Cancer Screening-DNA Stool Discontinued Colon Cancer Screening-CT Colonography Discontinued Colon Cancer Screening-FIT Discontinued Colon Cancer Screening-Sigmoidoscopy Discontinued Counseling and Referral of Preventative Services: Lifestyle Recommendations Increase Physical Activity, Reduce Weight, and Improve Diet Advanced Directive Durable Power of Phlebotomy Supervisor: Discussed Today: Living Will: Discussed Today: Does not want to limit her care right now Assessment and Plan: Diagnoses and all orders for this visit: Annual physical exam (Primary) The self assessment gone over in detail the home environment safe fall risk higher than normal due to her back and dizzy problems her cognitive and depression screening were fine her speech hearing and swallowing okay nutritional status is very good her vaccines she is due for a shingles vaccine and a tetanus shot and a COVID booster and flu shot would be ideal next year she still wants to keep getting mammograms and maybe even a colonoscopy when next due she was seeing her retina doctor faithfully Mixed hyperlipidemia - Comprehensive metabolic panel; Future - Lipid panel; Future Her latest lipids showed LDL of 88 HDL 45 so no problem there will continue statin therapy low-fat diet Bilateral exudative age-related macular degeneration, unspecified stage (HCC) She is getting injections for her wet macular degeneration Gastroesophageal reflux disease without esophagitis She has a esophageal stricture in the past but no need for dilatation now she is on PPI therapy andminimal reflux Esophageal stricture Continue PPI therapy will be on guard for any future swallowing problems that need dilatation again Spondylolisthesis at L4-L5 level She is getting expert management of her back problems hopefully she can avoid surgery Prolia is hopefully strengthening her bone health Benign paroxysmal positional vertigo due to bilateral vestibular disorder I am pretty sure this is all just BPPV without complete response to meclizine her lorazepam we agreed that if her symptoms keep up will get an MRI of the brain but I really do not think there is muchmore to be done if this point she is feeling better this week Patient here for annual Medicare wellness visit and for review of complete medical problem list. All the elements of the plan were completed as outlined by CMS. A copy of the prevention plan was given to the patient. I reviewed Medicare Wellness Questionnaire (other physicians involved in care, depression screen, advanced directives), cognitive/memory, and functional assessment. I reviewed and updated the complete problem list, medication list, family history, and immunization records with the patient. I provided preventive counseling and early detection interventions to the patient through health maintenance update and summary of today's office visit. ICE MUSIC THERAPIST documented in this encounter Plan of Treatment Scheduled Orders Name Type Priority Associated Diagnoses Orde r Schedule Comprehensive metabolic panel Lab Routine Mixed hyperlipidemia Expected: 06/05/2024 (Approximate), Expires: 12/06/2024 Lipid panel Lab Routine Mixed hyperlipidemia Expected: 06/05/2024 (Approximate), Expires: 12/06/2024 documented as of this encounter Visit Diagnoses Diagnosis Annual physical exam- Primary Routine general medical examination at a health care facility Mixed hyperlipidemia Bilateral exudative age-related macular degeneration, unspecified stage (HCC) Gastroesophageal reflux disease without esophagitis Esophageal reflux Esophageal stricture Stricture and stenosis of esophagus Spondylolisthesis at L4-L5 level Benign paroxysmal positional vertigo due to bilateral vestibular disorder documented in this encounter Discontinued Medications Medication Sig Discontinue Reason Start Date End Da te LORazepam (ATIVAN) 0.5 mg tablet Take 1 tablet (0.5 mg total) by mouth every 8 (eight) hours as needed (dizziness) 05/31/2023 06/06/2023 teriparatide (FORTEO) 20 mcg/dose (600mcg/2.4mL) injectionIndications:Othe r osteoporosis 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 pathological fracture Inject 0.08 mL (20 mcg total) under the skin daily 09/21/2022 06/06/2023 teriparatide (FORTEO) 20 mcg/dose (600mcg/2.4mL) injectionIndications:Othe r osteoporosis 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 pathological fracture Inject 0.08 mL (20 mcg total) under the skin daily 09/21/2022 06/06/2023 LORazepam (ATIVAN) 0.5 mg tablet Take 1 tablet (0.5 mg total) by mouth every 8 (eight) hours as needed (dizziness) 05/31/2023 06/06/2023 documented as of this encounter Care Teams Services Engineer Relationship Specialty Start Date End Date Korey Randolph MD PCP - General Internal Medicine 05/23/17 documented as of this encounter
--- OUTSIDE RECORDS SUMMARY | 2024-04-07 05:36 | XMS_ITS | Data Portability ---
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 She has significant lumbar stenosis. I sent her to Dr. De, however no treatment has been given. I think she needs a another evaluation for stenosis. I believe her the amount of stenosis she has is causing pain not only her back down her legs. I sent her for epidural injections to see if this will help we will see if we can find in the Spine surgery consultation as I think she would benefit from surgery. Patient also has knee pain. She has got moderate arthritis on her x-rays and grinding crepitus she has an equivocal Gudelia's at this point. We will try an injection left knee this is done with 20 mg Kenalog 4 cc 1% lidocaine. I will see her back in a month for follow-up CR knees progressing and see how her back is doing. davon Not available 08/11/2022 14:55:01 Plan of Treatment Reminders Order Date Submit Date Provider Last Modified By Organization Details Last Modified Time Details Appointments None recorded. Lab None recorded. Referral orthopedic spine surgeon referral - Please contact patient to schedule 2022 023 SHAZIA Dorado MD, [address], [address], [place], [address], 14:19:27 Procedures injection/a spiration joint/bursa (PROC) - in office procedure, administere d by provider 2022 023 [email or web address] In-Office Order, Internal Use Only DO Not Attach Compendium DO Not Attach Compendium, Do Not Delete/merge, [id number] 14:45:31 Surgeries None recorded. Imaging XR, knee 2022 023 [email or web address] [facility] [place], [address] [facility] [address], [place], [address], 3 16:08:10 Medication Orders Kenalog 10 mg/mL suspension for injection 2022 023 [id number], [address], [place], [place], [id number], 3 14:55:29 ropivacaine (PF) 5 mg/mL (0.5 %) injection solution 2022 023 [id number], [address], [place], [place], [phone], 3 14:55:29 Patient TargetsNo targets recorded. Patient InstructionsNo instructions recorded. Reason for Referral Orthopedic Spine Surgeon Ref erral for Spinal stenosis of lumbar region Please contact patient to schedule Referring Physician: Lei Fajardo, Orthopedic Surgery, Encounter Date: 08/11/2022 Results Created Date Observation Date Name Description Value Unit Range Abnormal Flag Note LastModifiedBy Organization Detail LastModifiedTime 08/29/19 21 08/28/2020 MRI, lumba r spine , w/o contr ast No observ ation record ed. [id number] [facility] [address], [place], [address], 06/01/2022 13:55:15 08/29/19 21 MRI L spine wo [facility] [address], [place] [address] [phone] Patien t Name: MEGHANA LOYA Access ion #: [id number] Sex: F : 1939 Locati on: IND Attend ing Physic marc: Manny whitmore Physic marc: BREE LEI RUIZ Exam Date: 7:18 AM Exam Name: MRI L SPINE WO Admitt ing Diagno sis(es ): RADIOL OGY REPORT - FINAL EXAM: MRI L SPINE WO HISTOR Y: pain COMPAR CARMEN: None. TECHNI QUE: Multip lanar multis equenc e non-co ntrast images of lumbar spine are review ed. FINDIN GS: Verteb ral bodies : Unrema rkable Conus medull roderick: L1-2 Disc spaces : All levels demons trate degene rative desicc ation signal intens ity Page 1 of 3 [facility] Pati t Name: MEGHANA LOYA Access ion #: [id number] Sex: F : 1939 Exam Date: 7:18 AM Exam Name: MRI L SPINE WO Admitt ing Diagno sis(es ): Parave rtebra l soft tissue s: Unrema rkable Vascul ature: No eviden ce of an aneury sm T12-L1 : Otherw ise unrema rkable L1-2: Mild bulgin g of the degene rate annulu s is presen t which does not result in signif icant centra l spinal stenos is. L2-3: No eviden ce of centra l or neural forami nal stenos is. L3-4: No eviden ce of centra l or neural forami nal stenos is bilate rally. L4-5: A bulgin g degene rate annulu s and facet hypert rophic change are noted result ing in severe right and modera te left pre forami nal stenos is with degene rative etiolo gy modera te left and mild right neural forami nal stenos is with mild centra l spinal stenos is. L5-S1: Otherw ise unrema rkable . IMPRES ALISON: See above. Create d and electr onical ly signed by: Kalli noble MD Signed Date: 1:36 PM (CT) Dictat ed by: Kalli noble MD Page 2 of 3 [facility] Otis t Name: MEGHANA LOYA Access ion #: [id number] Sex: F : 1939 Exam Date: 7:18 AM Exam Name: MRI L SPINE WO Admitt ing Diagno sis(es ): DD: 1:36 PM (CT) DT: 1:36 PM (CT) Page 3 of 3 [id number] [facility] (Imaging) [address] [place], [address], 06/01/2022 13:55:15 09/02/19 21 08/28/2020 MRI, lumba r spine , w/o contr ast No observ ation record ed. [id number] [facility] [address], [place], [address], 06/01/2022 13:55:15 12/10/19 22 XR, hand No observ ation record ed. [id number] [facility] [place] [address], [place], [address], 06/01/2022 13:55:15 02/08/20 22 XR, lumba r spine No observ ation record ed. [id number] [facility] [place] [address], [place], [address], 06/01/2022 13:55:15 02/10/20 22 [facility] [address] [place] [address] [phone] Patikarel t Name: MEGHANA LOYA Access ion #: [id number] Sex: F : 1939 Locati on: IND Attend ing Physic marc: Manny whitmore Physic marc: BREE LEI RUIZ Exam Date: 7:59 AM Exam Name: MRI L SPINE WO Admitt ing Diagno sis(es ): RADIOL OGY REPORT - FINAL EXAM: MRI L SPINE WO HISTOR Y: lbp 81-yea r-old female with low back pain radiat ing to the inguin al region s, no known injury . COMPAR CARMEN: Lumbar spine radiog raphs dated 2021; lumbar spine MRI dated 2020 TECHNI QUE: Multip lanar multis equenc e noncon trast MR images of the lumbar spine were perfor med. FINDIN GS: No fractu res are identi fied in the lumbar spine. The conus termin ates at L1. L1-L2: There is disc desicc ation and loss of disc height . There is 3 mm retrol isthes is L1 on L2. There is a circum ferent ial broad disc bulge with Page 1 of 3 [facility] Patien t Name: MEGHANA LOYA Access ion #: [id number] Sex: F : 1939 Exam Date: 7:59 AM Exam Name: MRI L SPINE WO Admitt ing Diagno sis(es ): endpla te hypert rophy, most promin ent in the left forami nal region . No signif icant spinal canal stenos is. There is mild left and no signif icant right neural forami nal stenos is. L2-L3: There is a mild circum ferent ial broad disc bulge. There is bilate ral facet and ligame ntum flavum hypert rophy. No signif icant spinal canal stenos is or neural forami nal stenos is bilate rally. L3-L4: There is mild loss of disc height . There is a circum ferent ial broad disc bulge. There is bilate ral facet and ligame ntum flavum hypert rophy. No signif icant spinal canal stenos is. There is mild bilate ral neural forami nal stenos is. L4-L5: There is amadou listhe sis L4 on L5 measur ing 4 mm AP, withou t eviden ce of spondy lolysi s. There is a circum ferent ial broad disc bulge, most promin ent in the forami nal region s. There is bilate ral facet and ligame ntum flavum hypert rophy. There is fluid intens ity in the bilate ral facets . The AP dimens ion of the spinal canal measur es 6 mm. There is partia l efface ment of the latera l recess es. There is mild right and modera te left neural forami nal stenos is. L5-S1: No signif icant discop athy, spinal canal stenos is, or neural forami nal stenos is bilate rally. There is bilate ral facet hypert rophy. IMPRES AILSON: 1. No fractu re of the lumbar spine. 2. Degene rative disc diseas e and facet arthro asa cause signif icant neural forami nal stenos is at L4-L5 on the left. Additi onally , there is partia l efface ment of the latera l recess es at the L4-L5 level. These findin gs may be Page 2 of 3 [facility] Otis t Name: MEGHANA LOYA Access ion #: [id number] Sex: F : 1939 Exam Date: 7:59 AM Exam Name: MRI L SPINE WO Admitt ing Diagno sis(es ): associ ated with lower extrem ity radicu lar sympto ms in the left L4 and bilate ral L5 nerve root distri bution s. 3. 3 mm retrol isthes is L1 on L2 and grade 1 amadou listhe sis L4 on L5. No eviden ce of spondy lolysi s. 4. Modera te spinal canal stenos is L4-L5. Create d and electr onical ly signed by: Dennis richards MD Signed Date: 8:24 AM (CT) Dictat ed by: Dennis richards MD DD: 8:24 AM (CT) DT: 8:24 AM (CT) Page 3 of 3 [id number] [facility] ([facility]) [address], [place], [address], 06/01/2022 13:55:15 03/04/20 22 02/08/2022 MRI, lumba r spine , w/o contr ast No observ ation record ed. [id number] [facility] [address], [place], [address], 06/01/2022 13:55:15 08/12/19 23 XR, knee No observ ation record ed. [email or web address] [facility] [place] [address] [facility] [address], [place], [address], 08/11/2022 14:52:48 Result Notes None recorded. Problems Name Problem SNOMED Code Status Onset Date Resolution Date Notes Provider Name and Address Organization Details Recorded Time Arthritis of right knee 7308222964078 102 Active 2020 Not Available [facility] 3 13:52:10 Disorder of shoulder 725467441 Active Not Available [facility] 3 13:52:10 Arthritis of finger of right hand 9437833256319 9100 Active 2021 Not Available [facility] 3 13:52:10 Disorder of trunk 130695421 Active Not Available [facility] 3 13:52:10 Chondromal acia of right patella 8160634460967 9108 Active 2020 Not Available [facility] 3 13:52:10 Spinal stenosis of lumbar region 74037464 Active 2020 Not Available [facility] 3 13:52:10 Sacroiliac joint pain 404414654 Active 2020 Not Available [facility] 3 13:52:11 Osteoarthr itis of knee 698179771 Active Not Available [facility] 3 13:52:11 Low back pain 269170643 Active Not Available [facility] 3 13:52:11 Enthesopat hy of hip region 75102891 Active Not Available [facility] 3 13:52:11 Pain in right hand 9187139985014 09 Active 2021 Not Available [facility] 3 13:52:11 Osteoarthr osis of the carpometac arpal joint of the thumb 66598381 Active 2021 Not Available [facility] 3 13:52:11 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 Procedures Surgical History Date Name Laterality Status Provider Name and Address Organization Details Recorded Time 08/12/19 23 Ortho - Cortisone Injection completed Lei Fajardo MD [address] [place] [address], [address], [facility] 08/11/2022 14:54:08 04/03/19 10 procedure on gallbladder completed Not Available [facility] 06/01/2022 13:51:47 04/03/19 01 Shoulder completed Not Available [facility] 3 13:51:47 04/03/18 80 Hysterectomy completed Not Available [facility] 023 13:51:47 Imaging Results Imaging Date Name Status LastModified by Organiz ation Details LastModified Time 08/28/2020 MRI, lumbar spine, w/o contrast completed [id number] [facility] [address], [place], [address], 06/01/2022 13:55:15 08/28/2020 MRI, lumbar spine, w/o contrast completed [id number] [facility] [address], [place], [address], 06/01/2022 13:55:15 08/28/2020 MRI L spine wo completed [id number] [facility] ([facility]) [address] [place], [address], 06/01/2022 13:55:15 02/09/2022 MRI L spine wo completed [id number] [facility] ([facility]) [address] [place], [address], 06/01/2022 13:55:15 02/07/2022 XR, lumbar spine completed [id number] [facility] [place] [address], [place], [address], 06/01/2022 13:55:15 02/08/2022 MRI, lumbar spine, w/o contrast completed [id number] [facility] [address], [place], [address], 06/01/2022 13:55:15 12/09/2021 XR, hand completed [id number] [facility] [place] [address], [place], [address], 06/01/2022 13:55:15 08/11/2022 XR, knee completed [email or web address] [facility] [place] [address], [place], [address], 08/11/2022 14:52:48 Procedure Notes None recorded. Medical Equipment None Reported. Medications Name Sig Start Date Stop Date Status Note LastModified by Organization Details LastModified Time prednisone 10 mg tablet 12/09 completed Not Available Not Available Not Available atorvastati n 10 mg tablet TAKE 1 TABLET BY MOUTH EVERY DAY active Not Available Not Available No t Available azithromyci n 250 mg tablet 10/09 completed Not Available Not Available Not Available benzonatate 200 mg capsule active Not Available Not Available Not Available prednisone 20 mg tablet 10/09 completed Not Available Not Available Not Available prednisone 10 mg tablets in a dose pack Take 1 tab by mouth, 3 times a day for 3 daysTake 1 tab by mouth 2 times a day for 2 daysTake 1 tab by mouth once a day for 1 day 12/09 completed Not Available Not Available Not Available lorazepam 0.5 mg tablet TK ONE TO TWO TS PO 30 MINUTES PRIOR TO PROCEDURE UTD 06/25 completed Not Available Not Available Not Available Kenalog 10 mg/mL suspension for injection Take 20 mg by injection route. [address] [facility]: 0003- 0494- 20 Not Available Not Available Not Available meclizine 25 mg tablet active Not Available Not Available Not Available pantoprazol e 40 mg tablet,parish yed release TK 1 T PO BID active Not Available Not Available No t Available polymyxin B sulfate 10,000 unit-trimet hoprim 1 mg/mL eye drops INSTILL 1 DROP IN LEFT EYE FOUR TIMES DAILY FOR 1 WEEK 12/09 completed Not Available Not Available Not Available diclofenac sodium 75 mg tablet,parish yed release TK 1 T PO BID WITH FOOD 10/09 completed Not Available Not Available Not Available montelukast 10 mg tablet 06/25 completed Not Available Not Available Not Available mupirocin 2 % topical ointment 10/09 completed Not Available Not Available Not Available polyethylen e glycol 3350 17 gram/dose oral powder MIX 17 GRAMS IN 8 [place] QD 10/09 completed Not Available Not Available Not Available levofloxaci n 500 mg tablet TK 1 T PO QD active Not Available Not Available No t Available levofloxaci n 750 mg tablet 10/09 completed Not Available Not Available Not Available methylpredn isolone 4 mg tablets in a dose pack 10/09 completed Not Available Not Available Not Available hydrocodone 10 mg-chlorphe niramine 8 mg/5 mL oral susp extend.rel 12hr TK 5 ML PO BID PRF COUGH 10/09 completed Not Available Not Available Not Available fluticasone propionate 50 mcg/actuati on nasal spray,suspe nsion SHAKE LIQUID AND USE 2 SPRAYS IN EACH NOSTRIL DAILY active Not Available Not Available No t Available amoxicillin 875 mg-juan ramonu m clavulanate 125 mg tablet TAKE 1 TABLET BY MOUTH TWICE DAILY FOR 10 DAYS active Not Available Not Available No t Available nitrofurant oin monohydrate /macrocryst als 100 mg capsule 12/09 completed Not Available Not Available Not Available Prilosec 2020 active Not Available Not Available Not Avai lable lidocaine (PF) 10 mg/mL (1 %) injection solution In office injection administe red by the provider 12/[address] [facility]: 0409- 4276- 17 Not Available Not Available Not Available ProAir HFA 90 mcg/actuati on aerosol inhaler active Not Available Not Available Not Available Prevnar 13 (PF) 0.5 mL intramuscul ar syringe ADM 0.5ML IM UTD 10/09 completed Not Available Not Available Not Available ropivacaine (PF) 5 mg/mL (0.5 %) injection solution Take 20 mg by injection route. 2022 active Not Available Not Available Not Avai lable Fluzone High-Dose 2013- (PF) 180 mcg/0.5 mL intramuscul ar syringe INJECT 0.5 ML INTRAMUSC ULARLY DIRECTED. 10/09 completed Not Available Not Available Not Available Fluzone High-Dose 2014- (PF) 180 mcg/0.5 mL intramuscul ar syringe 10/09 completed Not Available Not Available Not Available Fluzone High-Dose 9021-7938 (PF) 180 mcg/0.5 mL intramuscul ar syringe ADM 0.5ML IM UTD 10/09 completed Not Available Not Available Not Available Fluzone High-Dose 4604-7192 (PF) 180 mcg/0.5 mL intramuscul ar syringe ADM 0.5ML IM UTD 10/09 completed Not Available Not Available Not Available Vitals Date Recorded Body mass index (BMI) Body height Body weight Provider Name and Address Organization Details Last Updated DateTime 02/07/2022 26.3 kg/m2 149.86 cm 06496.01 g Not Available Gaby petevan [facility] 06/01/2022 13:51:52 Date Recorded Body mass index (BMI) Body height Body weight Provider Name and Address Organization Details Last Updated DateTime 02/10/2022 27.2 kg/m2 147.32 cm 65490.01 g Not Available [facility] 06/01/2022 13:51:52 Date Recorded Body height Provider Name an d Address Organization Details Last Updated DateTime 09/03/2020 149.86 cm Not Available [facility] 13:51:51 Date Recorded Body height Provider Name an d Address Organization Details Last Updated DateTime 12/09/2021 149.86 cm Not Available [facility] 13:51:51 Date Recorded Body height Body mass index (BMI) Body weight Provider Name and Address Organization Details Last Updated DateTime 08/11/2022 149.86 cm 27.7 kg/m2 95069.15 g STEPHY Cedillo [facility] [place] [email or web address] [facility] 08/11/2022 14:16:23 Social History None recorded. Functional Status None recorded. Mental Status None recorded. Family History Relationship Description Onset Age of this Age Resolved Age Notes LastModified by Organization Details LastModified Time Father Heart disease [id number] Not available 06/01/2022 13:51:47 Unspecified Relation Family history of malignant neoplasm [id number] Not available 06/01/2022 13:51:47 Medical History Condition Response OSTEOPOROSIS Y ARTHRITIS Y USE OF NSAIDS Y Gynecological HistoryNo gynecological history recorded. Obstetrics History GPAL:G 0 P 0 0 0 0 Past Encounters Encounter ID Performer Location Encounter Start Date Encounter Closed Date Diagnosis/Indication Diagnosis SNOMED-CT Code Diagnosis ICD10 Code [id number] [facility] [place] [address] [place] [address] 06/25/2020 00:00:00 06/25/2020 16:02:00 [id number] [facility] [place] [address] [place] [address] 07/23/2020 00:00:00 07/23/2020 14:39:39 [id number] [facility] [place] [address] [place] [address] 08/20/2020 00:00:00 08/20/2020 14:42:20 [id number] [facility] [place] [address] [place], [place] [address] 09/03/2020 00:00:00 09/03/2020 13:19:57 [id number] [facility] [place] [address] [place], [place] [address] 12/09/2021 00:00:00 12/09/2021 13:42:22 [id number] [facility] [place] [address] [place] [address] 02/07/2022 00:00:00 02/07/2022 11:40:29 [id number] [facility] [place] [address] [place] [address] 02/10/2022 00:00:00 02/10/2022 14:01:30 [id number] Lei Fajardo MD [facility] [place] [address] [facility] [address] [place], [place] [address] 08/11/2022 14:09:23 08/11/2022 16:08:10 Low back pain 739108559 M54.50 Sacroiliac joint pain 20 4874648 M53.3 Spinal melissa nosis of lumbar region 85869032 M48.061 Pain of le ft knee joint 5191238200 85217 M25.562 Health Concerns Section Related Observation LastModified by Organization Detai ls LastModified Time None Recorded Concern Status LastModified by Organization Details LastModified Time None Recorded Advance Directives Directive None Recorded Payers Encounter Date Sequence Insurance Name Policy Number Policy Blanchard Covered Member ID Blanchard Member ID Guarantor Name 08/11/2022 1 [facility] (MEDICARE REPLACEMENT/A DVANTAGE - PPO) [id number] Meghana Loya [id number] Meghana Loya Notes Date Note Type Note Provider Name and Address Organization Details Recorded Time 09/03/2020 text/html Back PainReporte d bypatient.Location:p ain radiating to the buttocks Quality:dull Severity:worsening Duration:chronic Context:unusual activity; prior back problems Associated Symptoms:no fever; no weak limbs; no numbness of the legs/feet; no tingling; no incontinence; no shortness of breathHip(s)Reported bypatient.Location:l ateral Quality:throbbing; superficial; frequent Severity:moderate Duration:continuous since onset Timing:occasional Context:overuse Alleviating Factors:lying down; heat; ice; rest; exercise; limited weight bearing Aggravating Factors:standing; walking; bending/squatting Associated Symptoms:no numbness; no redness; no ecchymosis; no catching/locking; no popping/clicking; no buckling; no grinding; no instability; no radiation down leg; no drainage; no fever; no chills; no weight loss; no change in bowel/bladder habits;weakness;swel ling Not Available [facility] [employer] [facility] 09/03/2020 13:19:57 12/09/2021 text/html Hand/FingersRepo rted bypatient.Location:d eep; radial Quality:aching; throbbing Severity:moderate Timing:chronic; recurrent Duration:continuous since onset Aggravating Factors:pushing/pull ing; gripping; grasping Alleviating Factors:ice; rest; elevation; NSAIDs Associated Symptoms:no numbness; no tingling; no swelling; no redness; no warmth; no ecchymosis; no catching/locking; no popping/clicking; no buckling; no instability; no drainage; no fever; no chills; no weight loss; no change in bowel/bladder habits;weakness;grin ding;radiating to thumb/index/middle Not Available [facility] [employer] [facility] 12/09/2021 13:42:22 02/07/2022 text/html L-spineReported bypatient.Location:p osterior; deep Quality:aching; throbbing; dull; frequent Severity:moderate Duration:continuous since onset Timing:chronic Context:lifting; twisting; overuse Alleviating Factors:lying down; position change; ice; rest; elevation Aggravating Factors:walking; bending/squatting; exercise Associated Symptoms:no numbness; no tingling; no swelling; no redness; no ecchymosis; no catching/locking; no popping/clicking; no buckling; no grinding; no instability; no radiation down leg; no drainage; no fever; no chills; no weight loss; no change in bowel/bladder habits;weakness;warm th Not Available [employer] 02/07/2022 11:40:29 02/10/2022 text/html L-spineReported bypatient.Location:p osterior; deep Quality:aching; throbbing; dull; frequent Severity:moderate Duration:continuous since onset Timing:chronic Context:lifting; twisting; overuse Alleviating Factors:lying down; position change; ice; rest; elevation Aggravating Factors:walking; bending/squatting; exercise Associated Symptoms:no numbness; no tingling; no swelling; no redness; no ecchymosis; no catching/locking; no popping/clicking; no buckling; no grinding; no instability; no radiation down leg; no drainage; no fever; no chills; no weight loss; no change in bowel/bladder habits;weakness;warm th Not Available [employer] 02/10/2022 14:01:30 08/11/2022 text/html Patient returns back pain. Pain radiates down her legs worse with activity somewhat relieved by rest.. The pain radiates to her right hip in particular. She walks with a bit of an antalgic gait has moderate paraspinal spasm or pain with extension and flexion. Patient also complains of knee pain LEFT greater than RIGHT. It is worse with activity somewhat relieved rest. Neurologically she is intact she is going to equivocal Gudelia's positive patellar compression test. Lei Fajardo MD [address] [place] [address], [place], [address], [facility] 08/11/2022 14:55:26 OBGyn Episode No OBEpisode recorded.
--- OUTSIDE RECORDS SUMMARY | 2024-04-07 05:36 | XMS_ITS | Encounter Summary ---
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
--- OUTSIDE RECORDS SUMMARY | 2024-04-07 05:36 | XMS_ITS | Encounter Summary ---
Author Organization [facility] Medical Group Address [address] [facility] [address] [place] [address] Care Team Providers Care Double Bass Player Name Role Phone Korey Randolph MD Primary Care Provider Encounter Details Date Type Department Care Team (Late st Contact Info) Description 09/09/2022 Orders Only [facility] [address] [facility] [address] [place] [address] Lala Roblero, RN Spondylosis of lumbar region without myelopathy or radiculopathy (Primary Dx); Spondylolisthesis at L4-L5 level Social History Tobacco Use Types Packs/Day Years [...] on file 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 Gender Identity Female 08/18/2019 3:36 PM CDT Sexual Orientation Straight 08/18/2019 3: 35 PM CDT documented as of this encounter Progress Notes * Lala Roblero RN - 09/09/2022 10:10 AM CDT error documented in this encounter Plan of Treatment Not on file documented as of this encounter Visit Diagnoses Diagnosis Spondylosis of lumbar region without myelopathy or radiculopathy- Primary Spondylolisthesis at L4-L5 level documented in this encounter Care Teams Double Bass Player Relationship Specialty Start Date End Date Korey Randolph MD PCP - General Internal Medicine 05/23/17 documented as of this encounter
--- OUTSIDE RECORDS SUMMARY | 2024-04-07 05:36 | XMS_ITS | Encounter Summary ---
Author Organization 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 documented in this encounter Results * Calcium level (12/11/2023 1:11 PM CDT) Calcium 9.6 8.5 - 10.3 mg/dL Blood 12/11/2023 1:11 PM CDT 12/11/2023 1:20 PM CDT us Truman Khalil MD LAB BLOOD ORDERABLES F inal Result [facility] [address] [place] [address] documented in this encounter Visit Diagnoses Diagnosis 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
--- OUTSIDE RECORDS SUMMARY | 2024-04-07 05:36 | XMS_ITS | Encounter Summary ---
Author Organization [facility] Healthcare Address [address] [place] [address] Care Team Providers Care Curb Worker Name Role Phone Korey Randolph MD Primary Care Provider Reason for Visit * Reason Onset Date Comments Symptom Based Call 08/01/2023 Encounter Details Date Type Department Care Team (Late st Contact Info) Description 08/01/2023 Telephone [facility] Medical Group Primary Care at [address] [place] [address] Korey Randolph MD [address] [place] [address] [address] [place] [address] Symptom Based Call Social History Tobacco Use Types Packs/Day Years [...] on file 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 Gender Identity Female 08/18/2019 3:36 PM CDT Sexual Orientation Straight 08/18/2019 3: 35 PM CDT documented as of this encounter Miscellaneous Notes * Telephone Encounter - Lory Dickey MA - 08/01/2023 5:01 PM CDT Spoke with patient to inform her that an antibiotic was called into her pharmacy for her uti symptoms * Telephone Encounter - Korey Randolph MD - 08/01/2023 4:56 PM CDT Please tell the patient that I called an antibiotic to her pharmacy * Telephone Encounter - Luis Zuniga - 08/01/2023 1:34 PM CDT Symptom Based Call Chief Complaint(s): painful when urinating, burning sensation Duration: started today What type of symptom(s) is the patient experiencing? Non-Emergent. Is this a new or reoccurring symptom(s)? New What have you tried to help your symptom(s)? N/a Why was appointment not scheduled? Patient refusing appointment regardless of availability. Additional Comments: Caller states she had back surgery about week ago, cannot make an appt, Callerstates she is taking tylenol and muscle relaxer from back surgery. Caller requesting medication to help with symptoms, please advise. Does message need to be routed? Yes-Action Needed documented in this encounter Plan of Treatment Not on file documented as of this encounter Visit Diagnoses Not on filedocumented in this encounter Care Teams Curb Worker Relationship Specialty Start Date End Date Korey Randolph MD PCP - General Internal Medicine 05/23/17 documented as of this encounter
--- OUTSIDE RECORDS SUMMARY | 2024-04-07 05:36 | XMS_ITS | Encounter Summary ---
Author Organization [facility] Medical Group Address [address] [facility] [address] [place] [address] Care Team Providers Care Zinc Miner Blasting Name Role Phone Korey Randolph MD Primary Care Provider Reason for Visit * Reason Onset Date Comments Authorization/Certification 09/22/2022 Call Back 09/23/2022 Encounter Details Date Type Department Care Team (Late st Contact Info) Description 09/22/2022 Telephone [facility] Medical Group Primary Care at [address] [place] [address] Korey Randolph MD [address] [place] [address] [address] [place] [address] Authorization/Certific ation; Call Back Social History Tobacco Use Types Packs/Day Years [...] points, staff should administer the PHQ-9) 0 09/21/2022 Comments No Sex and Gender Information Value Date Recorded Sex Assigned at Not on file 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 * Telephone Encounter - Kimberley Farooq - 09/27/2022 9:39 AM CDT Call Back Caller???s Concern: patient would like to know what the next steps are since it has been denied? Caller???s Call back #: [phone] Does message need to be routed? Yes-Action Needed * Telephone Encounter - Nahomy Haro MA - 09/26/2022 1:53 PM CDT Forteo DENIED. Provider notified. * Telephone Encounter - Jennifer Lewis - 09/23/2022 9:28 AM CDT Call Back Caller???s Concern: Kenji Mccray Pharmacist, called back to check status of prior auth for medication teriparatide (FORTEO) 20 mcg/dose (600mcg/2.4mL) injection, see message below. Please followup. Caller???s Call back #: [phone] Does message need to be routed? Yes-Action Needed * Telephone Encounter - Jigna Salas MA - 09/22/2022 3:37 PM CDT Authorization/Certification Type of Auth/Cert Needed: Prior Authorization for Medication Name of Medication and Dosage: teriparatide (FORTEO) 20 mcg/dose (600mcg/2.4mL) injection Is the patient out of the medication? No - new medication Pharmacy that medication was sent to: [id number] - [place] [address] [facility] Is insurance in chart accurate? Yes Caller???s Callback #: [phone] Additional Comments: No additional comments Does message need to be routed? Yes-Action Needed documented in this encounter Plan of Treatment Not on file documented as of this encounter Visit Diagnoses Not on filedocumented in this encounter Care Teams Zinc Miner Blasting Relationship Specialty Start Date End Date Korey Randolph MD PCP - General Internal Medicine 05/23/17 documented as of this encounter
--- OUTSIDE RECORDS SUMMARY | 2024-04-07 05:36 | XMS_ITS | Encounter Summary ---
Author Organization [facility] Medical Group Address [address] [facility] [facility] [address] [place] [address] Care Team Providers Care Merchandise Examiner Name Role Phone Korey Randolph MD Primary Care Provider Reason for Visit * Reason Onset Date Comments Medical Question/Miscellaneous 09/14/2022 Encounter Details Date Type Department Care Team (Late st Contact Info) Description 09/14/2022 Telephone [facility] [address] [facility] [address] [address] Truman Khalil MD [address] [facility] [address] [address] Medical Question/Miscellaneous Social History Tobacco Use Types Packs/Day Years [...] on file 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 * Telephone Encounter - Iva Almonte - 09/14/2022 10:09 AM CDT Medical Question/Miscellaneous Caller???s Concern: Patient called to check on the referral to be seen by Dr Khalil for the bone density issues Caller???s Call back #: [phone] Does message need to be routed? Yes-Action Needed documented in this encounter Plan of Treatment Not on file documented as of this encounter Visit Diagnoses Not on filedocumented in this encounter Care Teams Merchandise Examiner Relationship Specialty Start Date End Date Korey Randolph MD PCP - General Internal Medicine 05/23/17 documented as of this encounter
--- OUTSIDE RECORDS SUMMARY | 2024-04-07 05:36 | XMS_ITS | Encounter Summary ---
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
--- OUTSIDE RECORDS SUMMARY | 2024-04-07 05:36 | XMS_ITS | Encounter Summary ---
Author Organization [facility] Medical Group Address [address] [facility] [address] [place] [address] Care Team Providers Care Car Lubricator Name Role Phone Korey Randolph MD Primary Care Provider Reason for Visit * Reason Onset Date Comments Medical Question/Miscellaneous 09/30/2022 Encounter Details Date Type Department Care Team (Late st Contact Info) Description 09/30/2022 Telephone [facility] [address] [facility] [address] [address] Truman Khalil MD [address] [facility] [address], [place] [address] Medical Question/Miscellaneous Social History Tobacco [...] on file 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 Caller???s Call back #: [phone] Does message need to be routed? No * Telephone Encounter - Gisella Sandra - 10/03/2022 11:31 AM CDT See message below. * Telephone Encounter - Raven Ha - 10/03/2022 9:21 AM CDT Medical Question/Miscellaneous Caller???s Concern: Irene with [employer] called regarding message below and is requesting an update. Caller???s Call back #: [phone] Does message need to be routed? Yes-Action Needed * Telephone Encounter - Irvin Mcdaniel - 09/30/2022 9:07 AM CDT Medical Question/Miscellaneous Caller???s Concern: Jay Phillip, requesting follow up in regards to [place] denial for Forteo. What is provider next steps? Caller???s Call back #: [phone] Does message need to be routed? Yes-Action Needed documented in this encounter Plan of Treatment Not on file documented as of this encounter Visit Diagnoses Not on filedocumented in this encounter Care Teams Car Lubricator Relationship Specialty Start Date End Date Korey Randolph MD PCP - General Internal Medicine 05/23/17 documented as of this encounter
--- OUTSIDE RECORDS SUMMARY | 2024-04-07 05:36 | XMS_ITS | Encounter Summary ---
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 Gender Identity Female 08/18/2019 3:36 PM CDT Sexual Orientation Straight 08/18/2019 3: 35 PM CDT documented as of this encounter Last Filed Vital Signs Vital Sign Reading Time Taken Comments Blood Pressure 130/60 01/15/2024 10:18 AM CDT Pulse 76 01/15/2024 10:18 AM CDT Temperature 36 ??C (96.8 ??F) 01/15/2024 10:18 AM CDT Respiratory Rate 14 01/15/2024 10:18 AM CDT Oxygen Saturation - - Inhaled Oxygen Concentration - - Weight 65.3 kg (144 lb) 01/15/2024 10:18 AM CDT Height 144.8 cm (4' 9.01 ) 01/15/2024 10:18 AM C DT Body Mass Index 31.15 01/15/2024 10:18 AM CDT documented in this encounter Patient Instructions * Patient Instructions* Truman Khalil MD - 01/15/2024 10:30 AM CDT 1. Continue vitamin-D 2000 units daily 2. Calcium from dietary sources, 1000 mg daily 3. Weight-bearing exercises as tolerated 4. Continue Prolia every 6 months 5. Bone density in September 2024 6. Follow-up in 1 year documented in this encounter Progress Notes * Truman Khalil MD - 01/15/2024 10:30 AM CDT Images from the original note were not included. Subjective/Objective Patient ID: Meghana Dueñas is a 83 y.o. female. Chief Complaint Osteoporosis HPI: Ms.Brenda Sherry Dueñas is a 83 years old female seen in follow-up for management of osteoporosis. Medical history is notable for hyperlipidemia and grade 1 spondylolisthesis of L4 on L5.. Interval history : -status post L4-L5 decompression and fusion in July [address] Dorado. Back pain has resolved.She is able to work and participate in yoga. Osteoporosis. DXA performed on 09/07/2022 showed L1-L4 T-score of-2.9, total left hip T-score-1.8 and left femoral neck T-score-2.9. No history of fragility fractures. Evaluation for secondary causeswas unremarkable. She started Prolia on 11/30/2022, last dose 12/11/2023 She prefers next to have Prolia at [facility] . She has macular degeneration and cannot drive. Family has to bring her to appointments. She is on vitamin-D 2000 units daily. Adequate calcium from dietary sources. Constipation with calcium supplements No chronic steroids She underwent hysterectomy with unilateral oophorectomy at age 39. She was on HRT for 20 years. No history of smoking or alcohol use. Exercise: Walking and yoga No dental issues. Family history. Osteoporosis in her mother Hyperlipidemia. LDL 88 On atorvastatin. Current Outpatient Medications on File Prior to Visit Medication Sig Dispense Refill atorvastatin (LIPITOR) 10 mg tablet TAKE 1 TABLET(10 MG) BY MOUTH DAILY 90 tablet 3 cholecalciferol (VITAMIN D-3) 1,000 unit capsule Take by mouth daily meclizine (ANTIVERT) 25 mg tablet TAKE 1 TABLET(25 MG) BY MOUTH THREE TIMES DAILY NEEDED FOR DIZZINESS 90 tablet 3 multivitamin with minerals tablet Take 1 tablet by mouth daily NON FORMULARY, FOR INPATIENT USE, Take 10 mg by mouth daily Prevagen pantoprazole DR (PROTONIX) 40 mg EC tablet TAKE 1 TABLET(40 MG) BY MOUTH TWICE DAILY 180 tablet 3 vitamin E 400 unit capsule Take 1 capsule (400 Units total) by mouth daily triamcinolone (KENALOG) 0.1 % cream Apply topically 3 (three) times a day for 10 days 80 g 0 No current facility-administered medications on file prior to visit. Past Medical History: Diagnosis Date Arthritis Bronchitis GERD (gastroesophageal reflux disease) Hyperlipidemia Osteoporosis Pneumonia Sleeping difficulties Vertigo Past Surgical History: Procedure Laterality Date APPENDECTOMY BLADDER NECK SUSPENSION CATARACT EXTRACTION CHOLECYSTECTOMY COLONOSCOPY 01/17/2014 ESOPHAGOGASTRODUODENOSCOPY 07/11/2022 HYSTERECTOMY TUBAL LIGATION UPPER GASTROINTESTINAL ENDOSCOPY No Known Allergies Social History Tobacco Use Smoking status: Never Smokeless tobacco: Never Substance and Sexual Activity Drug use: Never Sexual activity: Not Currently Partners: Male control/protection: Tubal Ligation Alcohol Use: Not At Risk (06/06/2023) AUDIT-C Frequency of Alcohol Consumption: Never Average Number of Drinks: Patient does not drink Frequency of Binge Drinking: Never Family History Problem Relation Age of Onset Alzheimer's disease Mother Osteoporosis Mother Arthritis Father Heart attack Father Heart disease Father Cancer Maternal Grandfather Review of Systems Constitutional: Negative for activity change. HENT: Negative for dental problem. Eyes: Negative for visual disturbance. Respiratory: Negative for shortness of breath. Cardiovascular: Negative for chest pain and palpitations. Musculoskeletal: Negative for back pain. Skin: Negative for rash and wound. Neurological: Negative for weakness. BP 130/60 Pulse 76 Temp 36 ??C (96.8 ??F) (Temporal) Resp 14 Ht 144.8 cm (4' 9.01 ) Wt 65.3 kg (144 lb) LMP (LMP Unknown) BMI 31.15 kg/m?? Wt Readings from Last 3 Encounters: 01/15/24 65.3 kg (144 lb) 08/08/23 64.4 kg (142 lb) 06/06/23 65.8 kg (145 lb) Physical Exam Constitutional: Appearance: Normal appearance. She is well-developed. HENT: Head: Normocephalic and atraumatic. Neck: Thyroid: No thyromegaly. Cardiovascular: Rate and Rhythm: Normal rate and regular rhythm. Pulses: Normal pulses. Heart sounds: Normal heart sounds. No murmur heard. Pulmonary: Effort: Pulmonary effort is normal. No respiratory distress. Breath sounds: Normal breath sounds. Neurological: General: No focal deficit present. Mental Status: She is alert and oriented to person, place, and time. 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 Evaluation for secondary causes was unremarkable. Will continue denosumab 60 mg q.6 months. Will arrange for denosumab at [facility]. Continue vitamin-D 2000 units daily Calcium from dietary sources 1000 mg daily Weight-bearing exercises for precautions discussed. Will repeat bone density in September 2024 Follow-up in 1 year Orders: - Dexa Axial Skeleton Bone Density 1 or 2 Site; Future Mixed hyperlipidemia (E78.2) Assessment & Plan: Lipids well controlled Continue atorvastatin Truman Khalil MD Endocrinology, Diabetes & Metabolism [facility] Medical Group at [facility]. This note was completed using a voice recognition software. Unintended color paste mixer errors maybe present. 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 Evaluation for secondary causes was unremarkable. Will continue denosumab 60 mg q.6 months. Will arrange for denosumab at [facility]. Continue vitamin-D 2000 units daily Calcium from dietary sources 1000 mg daily Weight-bearing exercises for precautions discussed. 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
--- OUTSIDE RECORDS SUMMARY | 2024-04-07 05:36 | XMS_ITS | Encounter Summary ---
Author Organization [facility] Medical Group Address [address] [address] Care Team Providers Care Boiler Riveter Name Role Phone Korey Randolph MD Primary Care Provider Reason for Visit * Reason Comments Osteoporosis * Consultation (Routine) - Closed Specialty Diagnoses / Procedures Referred By Contac t Referred To Contact Endocrinology Diagnoses Spondylolisthesis at L4-L5 level Spondylosis of lumbar region without myelopathy or radiculopathy Carl Dorado MD Phone: tel: fax: Truman Khalil MD [address] [address] Phone: tel: fax: Referral ID Status Reason Start Date Expiration Date V isits Requested Visits Authorized [id number] Closed Specialty Services Required 09/09/2022 10/09/2023 1 1 Encounter Details Date Type Department Care Team (Latest Contact Info) Description 09/21/2022 10:30 AM CDT Office Visit [facility] [address] [facility] [address] [place] [phone] Truman Khalil MD [address] [address] Other osteoporosis 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 pathological fracture (Primary Dx); Spondylolisthesis at L4-L5 level; Spondylosis of lumbar region without myelopathy or radiculopathy; Mixed hyperlipidemia Social History Tobacco Use Types [...] on file 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 Gender Identity Female 08/18/2019 3:36 PM CDT Sexual Orientation Straight 08/18/2019 3: 35 PM CDT documented as of this encounter Last Filed Vital Signs Vital Sign Reading Time Taken Comments Blood Pressure 124/60 09/21/2022 10:29 AM CDT Pulse 66 09/21/2022 10:29 AM CDT Temperature 36.5 ??C (97.7 ??F) 09/21/2022 10:29 AM C DT Respiratory Rate 14 09/21/2022 10:29 AM CDT Oxygen Saturation - - Inhaled Oxygen Concentration - - Weight 63.5 kg (140 lb) 09/21/2022 10:29 AM CDT Height 147.3 cm (4' 9.99 ) 09/21/2022 10:29 AM C DT Body Mass Index 29.27 09/21/2022 10:29 AM CDT documented in this encounter Patient Instructions * Patient Instructions* Truman Khalil MD - 09/21/2022 10:30 AM CDT Continue vitamin-D 1000 units daily 2. Calcium from dietary sources Blood work today Plan to start Forteo if blood work is normal. Follow-up in 3 months * Attachments The following attachments cannot be sent through Care Everywhere. * Teriparatide (By injection) (Gambian) documented in this encounter Ordered Prescriptions Prescription Sig Dispense Quantity Refills Last Filled Start Date End Date teriparatide (FORTEO) 20 mcg/dose (600mcg/2.4mL) injectionIndicatio ns:Other osteoporosis 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 pathological fracture Inject 0.08 mL (20 mcg total) under the skin daily 2.4 mL 3 09/21/2022 06/06/2023 documented in this encounter Progress Notes * Trmuan Khalil MD - 09/21/2022 10:30 AM CDT Images from the original note were not included. Subjective/Objective Patient ID: Meghana Dueñas is a 82 y.o. female. Chief Complaint Osteoporosis HPI: Ms.Brenda Sherry Dueñas is a 82 years old female seen in consultation at the request of Dr. Doradofor evaluation and management of osteoporosis. Medical history is notable for hyperlipidemia and grade 1 spondylolisthesis of L4 on L5.. She was evaluated by Dr. Dorado for spondylolisthesis of L4-L5 and recommended L4-L5 laminectomy with fusion. She was referred to Endocrine Clinic for BMD optimization prior to surgery. DXA performed on 09/07/2022 showed L1-L4 T-score of-2.9, total left hip T-score-1.8 and left femoral neck T-score-2.9. I reviewed bone density images. No history of fragility fractures. No loss of height. She is on vitamin-D 2000 units daily. Adequate calcium intake from dietary sources. Constipation with calcium supplements. She has never been on Dilantin or phenobarbital. She underwent hysterectomy with unilateral oophorectomy at age 39. She was on HRT for 20 years. No history of smoking or alcohol use. Exercise: Walks: Limited by back pain. She was very active till age 79 . 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 No history of GERD or PUD. No history of kidney stones. No dental issues. No history of radiation, CAD, CVA. No family history of bone cancer Family history. Mother had osteoporosis in late age. Hyperlipidemia. LDL 90. On atorvastatin. Current Outpatient Medications on File Prior to Visit Medication Sig Dispense Refill atorvastatin (LIPITOR) 10 mg tablet Take 1 tablet (10 mg total) by mouth daily 90 tablet 3 cholecalciferol (VITAMIN D-3) 1,000 unit capsule Take by mouth daily multivitamin with minerals tablet Take 1 tablet by mouth daily NON FORMULARY, FOR INPATIENT USE, Take 10 mg by mouth daily Prevagen pantoprazole DR (PROTONIX) 40 mg EC tablet TAKE 1 TABLET(40 MG) BY MOUTH TWICE DAILY 180 tablet 3 vitamin E 400 unit capsule Take 1 capsule (400 Units total) by mouth daily [DISCONTINUED] fluticasone propionate (FLONASE) 50 mcg/actuation nasal spray SHAKE LIQUID AND USE 2SPRAYS IN EACH NOSTRIL DAILY (Patient not taking: Reported on 08/25/2022) 48 g 3 [DISCONTINUED] meclizine (ANTIVERT) 25 mg tablet Take 1 tablet (25 mg total) by mouth 3 (three) times a day as needed for dizziness 30 tablet 11 [DISCONTINUED] ropivacaine (NAROPIN) 5 mg/mL (0.5 %) injection 4 mL (20 mg total) No current facility-administered medications on file prior [...] Tubal Ligation Alcohol Use: Not At Risk (08/25/2022) AUDIT-C Frequency of Alcohol Consumption: Never Average Number of Drinks: Patient does not drink Frequency of Binge Drinking: Never Family History Problem Relation Age of Onset Alzheimer's disease Mother Osteoporosis Mother Arthritis Father Heart attack Father Heart disease Father Cancer Maternal Grandfather Review of Systems Constitutional: Positive for activity change. HENT: Negative for dental problem. Eyes: Negative for visual disturbance. Respiratory: Negative for cough and shortness of breath. Cardiovascular: Negative for chest pain, palpitations and leg swelling. Gastrointestinal: Negative for abdominal pain and nausea. Endocrine: Negative for cold intolerance and heat intolerance. Musculoskeletal: Positive for back pain. Skin: Negative for rash and wound. Neurological: Negative for weakness. BP 124/60 (BP Location: Right arm, Patient Position: Sitting) Pulse 66 Temp 36.5 ??C (97.7 ??F)(Oral) Resp 14 Ht 147.3 cm (4' 9.99 ) Wt 63.5 kg (140 lb) LMP (LMP Unknown) BMI 29.27 kg/m?? Wt Readings from Last 3 Encounters: 09/21/22 63.5 kg (140 lb) 08/25/22 64 kg (141 lb) 07/11/22 62.6 kg (138 lb) Physical Exam Constitutional: Appearance: Normal appearance. She is well-developed. HENT: Head: Normocephalic and atraumatic. Eyes: General: No scleral icterus. Conjunctiva/sclera: Conjunctivae normal. Neck: Thyroid: No thyromegaly. Cardiovascular: Rate and Rhythm: Normal rate and regular rhythm. Pulses: Normal pulses. Heart sounds: Normal heart sounds. No murmur heard. Pulmonary: Effort: Pulmonary effort is normal. No respiratory distress. Breath sounds: Normal breath sounds. Musculoskeletal: Cervical back: Neck supple. Right lower leg: No edema. Left lower leg: No edema. Neurological: General: No focal deficit present. Mental Status: She is alert and oriented to person, place, and time. Cranial Nerves: No cranial nerve deficit. Deep Tendon Reflexes: Reflexes are normal and symmetric. arrative & Impression EXAM DESCRIPTION: DEXA AXIAL SKELETON BONE DENSITY 1 OR MORE SITES REASON FOR STUDY: 82 y/o year old F with given history of screening. Postmenopausal Technician Biological Health/Model: 1calendar ([id number]/N [id number]) CLINICAL INFORMATION: Current height: 56.8 inches Maximum [...] mass (T-score between -1.0 and -2.5) replaces the previously used term osteopenia Osteoporosis (T-score = or below -2.5) Medical evaluation for secondary causes of low bone mineral density may be appropriate. FRAX is a World Health Organization validated fracture risk assessment tool that calculates a person's 10 year probability of a major osteoporosis related fracture and hip fracture. According to the National Osteoporosis Foundation guidelines, postmenopausal [...] Nilson Lara M.D. 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 She was seen by Neurosurgery who recommended L4-L5 laminectomy and fusion after optimization of BMD. Treatment options, risks and alternatives discussed. Recommended anabolic agent for 1-2 years followed by denosumab. Potential side effects including but not limited to allergic reaction, hypercalcemia and theoretical risk of bone cancer in animal studies discussed. Will check PTH/calcium and vitamin-D to rule out Normocalcemic hyperparathyroidism. Will start Forteo if PTH is normal. Continue vitamin-D 2000 units daily and calcium from dietary sources. Continue weight-bearing activity as tolerated. Four precautions discussed. All her questions were addressed. Follow-up in 4 months. . Orders: - Comprehensive metabolic panel; Future - PTH; Future - Vitamin D 25 hydroxy; Future - TSH reflex to free T4; Future - eGFR - teriparatide (FORTEO) 20 mcg/dose (600mcg/2.4mL) injection; Inject 0.08 mL (20 mcg total) under the skin daily Spondylolisthesis at L4-L5 level (M43.16) - Ambulatory referral to Endocrinology Spondylosis of lumbar region without myelopathy or radiculopathy (M47.816) - Ambulatory referral to Endocrinology Mixed hyperlipidemia (E78.2) Assessment & Plan: Lipids well controlled. LDL 90. Continue atorvastatin Addendum. Labs reviewed. Normal PTH, calcium vitamin-D. Will start Forteo 20 mcg daily. Latest Reference Range & Units 09/21/22 11:28 Alk phos 40 - 130 Units/L 86 Intact PTH 15.0 - 65.0 pg/mL 39.6 TSH 0.30 - 4.20 mcIUnit/mL 2.25 Vitamin D 25-OH 30 - 80 ng/mL 50 Latest Reference Range & Units 09/21/22 11:28 Sodium 135 - 145 mmol/L 141 Potassium, pl 3.3 - 4.9 mmol/L 4.2 Chloride 97 - 110 mmol/L 107 CO2 22 - 32 mmol/L 21 (L) Anion gap 2 - 15 mmol/L 13 BUN 6 - 25 mg/dL 33 (H) Creatinine 0.60 - 1.10 mg/dL 0.74 Glucose 70 - 199 mg/dL 87 Calcium 8.5 - 10.3 mg/dL 10.1 Bilirubin, total 0.1 - 1.2 mg/dL 0.2 Protein, pl 6.5 - 8.5 g/dL 6.7 Albumin 3.5 - 5.0 g/dL 4.5 eGFR mL/min/1.73 m2 81 Alk phos 40 - 130 Units/L 86 AST 10 - 45 Units/L 25 ALT 7 - 45 Units/L 43 My total encounter time on 09/21/2022 was 66 minutes which was spent in the activities documented inthe note. This includes time spent prior to the visit and after the visit in direct care of the patient. This time does not include time spent in any separately reportable services. Truman Khalil MD documented in this encounter Miscellaneous Notes * Result Encounter Note - Truman Khalil MD - 09/21/2022 11:36 PM CDT Please notify patient, parathyroid hormone, calcium and vitamin-D are normal. Will start Forteo as discussed. Prescription sent to pharmacy. Continue vitamin-D 2000 units daily. Adequate calcium intake from dietary sources. Thanks. * Assessment & Plan Note - Truman Khalil MD - 09/21/2022 11:32 PM CDT Associated Problem(s): Other osteoporosis 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 pathological fracture 81 years old female with history of spondylolisthesis of L4-L5 seen for evaluation and management of osteoporosis. She was seen by Neurosurgery who recommended L4-L5 laminectomy and fusion after optimization of BMD. Treatment options, risks and alternatives discussed. Recommended anabolic agent for 1-2 years followed by denosumab. Potential side effects including but not limited to allergic reaction, hypercalcemia and theoretical risk of bone cancer in animal studies discussed. Will check PTH/calcium and vitamin-D to rule out Normocalcemic hyperparathyroidism. Will start Forteo if PTH is normal. Continue vitamin-D 2000 units daily and calcium from dietary sources. Continue weight-bearing activity as tolerated. Four precautions discussed. All her questions were addressed. Follow-up in 4 months. . * Assessment & Plan Note - Truman Khalil MD - 09/21/2022 11:27 PM CDT Associated Problem(s): Hyperlipidemia Lipids well controlled. LDL 90. 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 73 m2 [facility] Comment: Interpretive Data Reference Interval Normal ?>/= 90 mL/min/1.73m2 Mildly decreased* ? 60 - 89 mL/min/1.73m2 Mildly to moderately decreased ?45 - 59 mL/min/1.73m2 Moderately to severely decreased ??30 - 44 mL/min/1.73m2 Severely decreased ?15 - 29 mL/min/1.73m2 Kidney Failure ?< 15 ??mL/min/1.73m2 *Relative to young adult level Estimated glomerular filtration rate is determined by the 2020 CKD-EPI equation recommended by the National Kidney Foundation (A Unifying Approach to GFR Estimation: Recommendations of the NKF-ASK Task Force on Reassessing the Inclusion of Race in Diagnosing Kidney Disease, JASN 2020). The CKD-EPI equation should not be used for patients with unstable renal function and has not been validated in children and those over 70. Current interpretive data was last reviewed 2021. Blood 09/21/2022 11:2 8 AM CDT 09/21/2022 2:47 PM CDT us Truman Khalil MD LAB BLOOD ORDERABLES F inal Result [facility] [address] [facility] [employer] [place] [address] * TSH reflex to free T4 (09/21/2022 11:28 AM CDT) TSH 2.25 0.30 - 4.20 mcIUnit/mL [facility] Blood 09/21/2022 11:2 8 AM CDT 09/21/2022 2:47 PM CDT Truman Khalil MD LAB BLOOD ORDERABLES F inal Result Performing Organization Address [facility] Co de Phone Number [facility] [address] [facility] [employer] [place] [address] * Vitamin D 25 hydroxy (09/21/2022 11:28 AM CDT) Pathologist [facility] Vitamin D 25-OH 50 30 - 80 ng/mL [facility] Blood 09/21/2022 11:2 8 AM CDT 09/21/2022 2:47 PM CDT Truman Khalil MD LAB BLOOD ORDERABLES F inal Result Performing Organization Address [facility] Co de Phone Number [facility] [address] Department [employer] [place] [address] * PTH (09/21/2022 11:28 AM CDT) Pathologist [facility] PTH 39.6 15.0 - 65.0 pg/mL [facility] Blood 09/21/2022 11:2 8 AM CDT 09/21/2022 2:47 PM CDT Truman Khalil MD LAB BLOOD ORDERABLES F inal Result Performing Organization Address City/[facility]/ZIP Co de Phone Number [facility] [address] Department [employer] [place] [address] * (ABNORMAL) Comprehensive metabolic panel (09/21/2022 11:28 AM CDT) Sodium 141 135 - 145 mmol/L [facility] Potassium, pl 4.2 3.3 - 4.9 mmol/L [facility] Chloride 107 97 - 110 mmol/L [facility] CO2 21(L) 22 - 32 mmol/L [facility] Anion gap 13 2 - 15 mmol/L [facility] BUN 33(H) 6 - 25 mg/dL [facility] Creatinine 0.74 0.60 - 1.10 mg/dL [facility] Glucose 87 70 - 199 mg/dL [facility] Comment: Interpretive Data Fasting glucose >/= 126 mg/dl is diagnostic for diabetes. ?? Fasting is defined as no caloric intake for at least 8 hours. Fasting glucose between 100 mg/dl to 125 mg/dl is diagnostic of prediabetes. In a patient with classic symptoms of hyperglycemia or hyperglycemic crisis, a random glucose >/= 200 mg/dl is diagnostic for diabetes. In the absence of unequivocal hyperglycemia, results should be confirmed by repeat testing. The classification and Diagnosis of Diabetes Diabetes Care 202; 46: S19-S40. Current interpretive data was last revised 2022. Calcium 10.1 8.5 - 10.3 mg/dL [facility] Bilirubin, total 0.2 0.1 - 1.2 mg/dL [facility] Protein, pl 6.7 6.5 - 8.5 g/dL [facility] Albumin 4.5 3.5 - 5.0 g/dL [facility] Alk phos 86 40 - 130 Units/L [facility] ALT 43 7 - 45 Units/L [facility] AST 25 10 - 45 Units/L [facility] Blood 09/21/2022 11:2 8 AM CDT 09/21/2022 2:47 PM CDT us Truman Khalil MD LAB BLOOD ORDERABLES F inal Result [facility] [address] Department [place] [address] documented in this encounter Visit Diagnoses Diagnosis Other osteoporosis 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
--- OUTSIDE RECORDS SUMMARY | 2024-04-07 05:36 | XMS_ITS | Encounter Summary ---
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 Khalil. Pt voiced understanding with no further questions or concerns at this time. * Telephone Encounter - Rowan Sprague - 09/22/2022 10:11 AM CDT ----- Message from Truman Khalil MD sent at 09/21/2022 11:36 PM CDT ----- Please notify patient, parathyroid hormone, calcium and vitamin-D are normal. Will start Forteo as discussed. Prescription sent to pharmacy. Continue vitamin-D 2000 units daily. Adequate calcium intake from dietary sources. Thanks. documented in this encounter Plan of Treatment Not on file documented as of this encounter Visit Diagnoses Not on filedocumented in this encounter Care Teams Epic Anesthesia Analyst Relationship Specialty Start Date End Date Korey Randolph MD PCP - General Internal Medicine 05/23/17 documented as of this encounter
--- OUTSIDE RECORDS SUMMARY | 2024-04-07 05:36 | XMS_ITS | Encounter Summary ---
Author Organization [facility] Healthcare Address [address] [place] [address] Care Team Providers Care Review Specialist Name Role Phone Korey Randolph MD Primary Care Provider Reason for Visit * Reason Comments Injections * Episode Based Medications (Routine) - Closed Specialty Diagnoses / Procedures Referred By Contac t Referred To Contact Diagnoses Other osteoporosis 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 pathological fracture Truman Khalil MD [address] [address] Phone: tel: fax: [facility] [address] [phone] Phone: tel: fax: Referral ID Status Reason Start Date Expiration Date Visits Re quested Visits Authorized [id number] Closed 05/31/2023 06/29/2024 99 99 Encounter Details Date Type Department Care Team (Latest Contact Info) Description 06/07/2023 2:15 PM CERTIFIED MEDICAL ASST Clinical Support [facility] [address] [phone] 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 Calcium level is within normal limits. Patient denies dental work in the last 3 months. Prolia injected. Patient tolerated well. Patient discharged ambulatory. Next appt confirmed. IFIED MEDICAL ASST documented in this encounter Plan of Treatment Not on file documented as of this encounter Visit Diagnoses Diagnosis Other osteoporosis 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 pathological fracture- Primary documented in this encounter Administered Medications Inactive Administered Medications - up to 3 most recent administrations Medication Order MAR Action Action Date Dose Rate Site denosumab (PROLIA) subcutaneous syringe 60 mg 60 mg, subcutaneous, Once, On Mon06/07/23 at 1415, For 1 dose, Calcium level should be greater than 8 mg/dl. Injection to be given in the upper arm, thigh or abdomen. Refrigerate. Allow to stand 15 to 30 mins prior to useIndications:Other osteoporosis 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 pathological fracture Given 06/07/2023 1:37 PM CERTIFIED MEDICAL ASST 60 mg Right Upper Arm documented in this encounter Orders Medications Ordered That Jeferson ht Not Have Been Administered Count Last Ordered Date First Ordered Date denosumab (PROLIA) subcutane ous syringe 60 mg 1 06/07/2023 Nursing Count Last Ordered Date First Orde red Date ONCBCN NURSING COMMUNICATION [id number] 0 06/07/2023 documented in this encounter Care Teams Review Specialist Relationship Specialty Start Date End Date Korey Randolph MD PCP - General Internal Medicine 05/23/17 documented as of this encounter
--- OUTSIDE RECORDS SUMMARY | 2024-04-07 05:36 | XMS_ITS | Encounter Summary ---
Author Organization [facility] Address [address] [facility] [address] [place] [address] Care Team Providers Care Lumber Carrier Operator Name Role Phone Korey Randolph MD Primary Care Provider Reason for Referral * Consultation (Routine) - Closed Specialty Diagnoses / Procedures Referred By Angelo t Referred To Contact Endocrinology Diagnoses Spondylolisthesis at L4-L5 level Spondylosis of lumbar region without myelopathy or radiculopathy Carl Dorado MD Phone: tel: fax: Padmini Gongora MD [address] [address] Phone: tel: fax: Referral ID Status Reason Start Date Expiration Date V isits Requested Visits Authorized [id number] Closed Specialty Services Required 09/09/2022 10/09/2023 1 1 Question Answer Please select the performing region: [facility] [[id number]] Please select the performing department[facility] [[id number]] To provider: PADMINI GONGORA [[id number]] # of visits: 1 Comments Referral for Bone Health for possible Spinal Surgery All records in [facility] Please call patient to schedule appointment Reason for Visit * Reason Onset Date Comments results about DEXA scan 09/09/2022 Encounter Details Date Type Department Care Team (Late st Contact Info) Description 09/09/2022 Telephone [facility] [address] [facility] [address] [place] [phone] Lala Roblero RN results about DEXA scan Social History Tobacco Use Types Packs/Day Years [...] on file 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 Patient understand that she needs to get on medication toget her bones stronger in order for Dr. Dorado to do surgery on her back. Sending her to [facility] where she could get seen sooner d/t patient stating that she is having more back pain and unable to sleep at night. She would like to be seen sooner than later to get on medication for her bone health in order to have possible surgery with Dr. Dorado.- pt verbalized understanding ----- Message from Carl Dorado MD sent at 09/08/2022 12:22 PM CDT ----- Regarding: RE: Results Available for Review DEXA scan shows a T-score of -2.9 (osteoporosis). She will need a formal evaluation by the bone [facility] and to be on medications in preparation for surgery. ----- Message ----- From: Evelyn Chamorro RN Sent: 09/08/2022 11:47 AM CDT To: Carl Dorado MD; # Subject: Results Available for Review Dexa Scan available for review from [facility]. Please provide further recommendations for patient. Thank you. documented in this encounter Plan of Treatment Scheduled Referrals Name Type Priority Associated Diagnoses Orde r Schedule Ambulatory referral to Endocrinology Outpatient Referral Routine Spondylolisthesis at L4-L5 level Spondylosis of lumbar region without myelopathy or radiculopathy Expected: 09/23/2022 (Approximate), Expires: 09/10/2023 documented as of this encounter Visit Diagnoses Diagnosis Spondylolisthesis at L4-L5 level- Primary Spondylosis of lumbar region without myelopathy or radiculopathy documented in this encounter Care Teams Lumber Carrier Operator Relationship Specialty Start Date End Date Korey Randolph MD PCP - General Internal Medicine 05/23/17 documented as of this encounter
--- OUTSIDE RECORDS SUMMARY | 2024-04-07 05:36 | XMS_ITS | Encounter Summary ---
Author Organization [facility] Address [address] [place] [address] Care Team Providers Care Tractor Trailer Driver Name Role Phone Korey Randolph MD Primary Care Provider Reason for Visit * Reason Comments Cough Patient presents tod ay with complaints of a cough, shortness of breath and chest pain. Sx onset 03/09. No known fevers. OTC Dayquil, Nyquil, Mucinex taken for relief. 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 Gender Identity Female 08/18/2019 3:36 PM CDT Sexual Orientation Straight 08/18/2019 3: 35 PM CDT documented as of this encounter Last Filed Vital Signs Vital Sign Reading Time Taken Comments Blood Pressure 116/62 03/23/2024 11:16 AM RAILROAD SURVEYOR Pulse 85 03/23/2024 11:16 AM RAILROAD SURVEYOR Temperature 36.2 ??C (97.2 ??F) 03/23/2024 1 1:16 AM RAILROAD SURVEYOR Respiratory Rate 20 03/23/2024 11:1 6 AM RAILROAD SURVEYOR Oxygen Saturation 97% 03/23/2024 11: 16 AM RAILROAD SURVEYOR Inhaled Oxygen Concentration - - Weight 66.1 kg (145 lb 12.8 oz) 024 11:16 AM RAILROAD SURVEYOR Height 144.8 cm (4' 9 ) 03/23/2024 11:1 6 AM RAILROAD SURVEYOR Body Mass Index 31.55 03/23/2024 11:16 AM RAILROAD SURVEYOR documented in this encounter Patient Instructions * Patient Instructions* Neha Shore NP - 03/23/2024 11:15 AM RAILROAD SURVEYOR Thank you for allowing me to take care of you today. Diagnosis lower respiratory infection and acute cough. Prescribed albuterol inhaler, Tessalon Perles, azithromycin. Home care includes rest, hydration, over the counter medications, warm saltwater gargles, hot tea with honey, humidifier/vaporizer, throat lozenges/cough drops, Vicks vapor rub, Mucinex, Flonase. Follow up with your primary provider in 2-3 days as needed. Red flags include worsening symptoms including pain, swelling, headache, dizziness, congestion, fever, shortness of breath, chest pain, nausea/vomiting, abdomen pain, back pain, muscle pain, decreased range of motion, numbness/tingling, weakness, fatigue. Follow up with your primary provider, this clinic, or if severe go to ER. ROAD SURVEYOR ROAD SURVEYOR * Attachments The following attachments cannot be sent through Care Everywhere. * Acute Cough (AfterCare(R) Instructions(ER/ED)) (Taiwanese) documented in this encounter Ordered Prescriptions Prescription Sig Dispense Quantity Refills Last Filled Start Date End Date benzonatate (TESSALON) 100 mg capsuleIndications :Cough Take 1 capsule (100 mg total) by mouth 3 (three) times a day as needed for cough 42 capsule 03/23/2024 albuterol HFA (PROVENTIL HFA,VENTOLIN HFA,PROAIR HFA) 90 mcg/actuation inhalerIndications :Lower respiratory infection,Acute cough Inhale 2 puffs every 6 (six) hours as needed for wheezing for up to 7 days 1 each 03/23/2024 azithromycin (ZITHROMAX) 250 mg tabletIndications: Lower respiratory infection,Acute cough Take 2 tabs (500 mg) by mouth today, than 1 tab (250 mg) daily for 4 days. 6 tablet 03/23/2024 4 documented in this encounter Progress Notes * Nhea Shore NP - 03/23/2024 11:15 AM CST Images from the original note were not included. Subjective/Objective Patient ID: Meghana Dueñas is a 84 y.o. female. Chief Complaint Cough (Patient presents today with complaints of a cough, shortness of breath and chest pain. Sx onset 03/09. No known fevers. OTC Dayquil, Nyquil, Mucinex taken for relief. ) Patient is a 84-year-old female presents to [facility] care chief complaint of cough, shortness a breath, chest pain that started on 2024. Patient reports she has a history of bronchitis that she gets yearly. Patient denies any fevers. Reports she has been taking DayQuil, NyQuil, Mucinex. Patient reports that her symptoms started after a trip to [place] at the beginning of the month. Reports that her chest pain is more of a congestion feeling. States the cough is throughout the day it does not keep her up. Patient reports that she does have some back pain during the cough. States she has had a runny nose. Review of system: All systems reviewed and are negative or noncontributory for this patient's presentation today other than as stated in HPI. Physical Exam Vitals and nursing note reviewed. Constitutional: General: She is not in acute distress. Appearance: Normal appearance. She is normal weight. She is not ill-appearing, toxic-appearing or diaphoretic. HENT: Head: Normocephalic and atraumatic. Right Ear: Tympanic membrane, ear canal and external ear normal. There is no impacted cerumen. Left Ear: Tympanic membrane, ear canal and external ear normal. There is no impacted cerumen. Nose: Nose normal. No congestion or rhinorrhea. Mouth/Throat: Mouth: Mucous membranes are moist. Pharynx: Oropharynx is clear. No oropharyngeal exudate or posterior oropharyngeal erythema. Eyes: Conjunctiva/sclera: Conjunctivae normal. Pupils: Pupils are equal, round, and reactive to light. Pulmonary: Effort: Pulmonary effort is normal. No respiratory distress. Breath sounds: No stridor. Rhonchi present. No wheezing or rales. Comments: Rhonchi heard bilateral lung bases. Chest: Chest wall: No tenderness. Abdominal: General: There is no distension. Musculoskeletal: General: Normal range of motion. Cervical back: Normal range of motion and neck supple. Skin: General: Skin is warm and dry. Neurological: General: No focal deficit present. Mental Status: She is alert and oriented to person, place, and time. Mental status is at baseline. Psychiatric: Mood and Affect: Mood normal. Behavior: Behavior normal. Thought Content: Thought content normal. Judgment: Judgment normal. Vitals: 03/23/24 1116 BP: 116/62 BP Location: Right arm Patient Position: Sitting Pulse: 85 Resp: 20 Temp: 36.2 ??C (97.2 ??F) TempSrc: Temporal SpO2: 97% Weight: 66.1 kg (145 lb 12.8 oz) Height: 144.8 cm (4' 9 ) Assessment/Plan Diagnoses and all orders for this visit: Lower respiratory infection (Primary) - azithromycin (ZITHROMAX) 250 mg tablet; Take 2 tabs (500 mg) by mouth today, than 1 tab (250 mg) daily for 4 days. - albuterol HFA (PROVENTIL HFA,VENTOLIN HFA,PROAIR HFA) 90 mcg/actuation inhaler; Inhale 2 puffs every 6 (six) hours as needed for wheezing for up to 7 days - benzonatate (TESSALON) 100 mg capsule; Take 1 capsule (100 mg total) by mouth 3 (three) times a day as needed for cough Acute cough - azithromycin (ZITHROMAX) 250 mg tablet; Take 2 tabs (500 mg) by mouth today, than 1 tab (250 mg) daily for 4 days. - albuterol HFA (PROVENTIL HFA,VENTOLIN HFA,PROAIR HFA) 90 mcg/actuation inhaler; Inhale 2 puffs every 6 (six) hours as needed for wheezing for up to 7 days - benzonatate (TESSALON) 100 mg capsule; Take 1 capsule (100 mg total) by mouth 3 (three) times a day as needed for cough Diagnosis lower respiratory infection and acute cough. Patient instructions/education: Acute cough. Prescribed albuterol inhaler, Tessalon Perles, azithromycin. Home care includes rest, hydration, over the counter medications, warm saltwater gargles, hot tea with honey, humidifier/vaporizer, throat lozenges/cough drops, Vicks vapor rub, Mucinex, Flonase. Follow up with your primary provider in 2-3 days as needed. Red flags include worsening symptoms including pain, swelling, headache, dizziness, congestion, fever, shortness of breath, chest pain, nausea/vomiting, abdomen pain, back pain, muscle pain, decreased range of motion, numbness/tingling, weakness, fatigue. Follow up with your primary provider, this clinic, or if severe go to ER. Procedures Disposition- Patient presents with chest congestion, cough, shortness breath. Patient is nontoxic-appearing and in no acute distress. Vitals signs are stable. Discussed point of care test results with patient, lab test, X-rays that may have been completed or ordered during clinic visit. Given the history and physical exam findings, presentation/diagnosis is lower respiratory infection and acute cough. The Differential diagnosis includes COVID, influenza, bronchitis, pneumonia. However, these differential diagnosis are less likely given the data, history and physical exam. Supportive care was discussed including rest, hydration, dkvy-qcl-tknivoc meds to help with symptoms. Albuterol inhaler, Tessalon Perles, azithromycin was prescribed. Discussed medications dosages, usage & potential side effects.Advised close follow up and return criteria/red flags were discussed. Risks and interactions reviewed with patient. Patient has been instructed to follow up w PCP or go to ER for any signs or symptoms that are of concern or worsening. Understanding of discharge instructions verbalized, and agrees with plan of care. The patient was given the opportunity to ask all questions and to have all questions answered. This note is dictated and transcribed by [employer]. Utilization Reviewer variances may occur. Despite proofreading, typographical errors may occur. Neha Shore NP ROAD SURVEYOR documented in this encounter Plan of Treatment Not on file documented as of this encounter Visit Diagnoses Diagnosis Lower respiratory infection- Primary Other diseases of respiratory system, not elsewhere classified Acute cough documented in this encounter Care Teams Tractor Trailer Driver Relationship Specialty Start Date End Date Korey Randolph MD PCP - General Internal Medicine 05/23/17 documented as of this encounter
--- OUTSIDE RECORDS SUMMARY | 2024-04-07 05:36 | XMS_ITS | Encounter Summary ---
Author Organization 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 Gender Identity Female 08/18/2019 3:36 PM CDT Sexual Orientation Straight 08/18/2019 3: 35 PM CDT documented as of this encounter Plan of Treatment Not on file documented as of this encounter Procedures Procedure Name Priority Date/Time Associated Diagnosis Comments CALCIUM LEVEL Routine 11/30/2022 1:38 PM CDT Other osteoporosis 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 pathological fracture documented in this encounter Results * Calcium level (11/30/2022 1:38 PM CDT) Calcium 9.0 8.5 - 10.3 mg/dL [facility] HWANG Blood 11/30/2022 1:38 PM CDT 11/30/2022 1:49 PM CDT us Truman Khalil MD LAB BLOOD ORDERABLES F inal Result [facility] [address] [place] [address] documented in this encounter Visit Diagnoses Diagnosis Other osteoporosis 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 pathological fracture documented in this encounter Care Teams Organisation And Methods Analyst Relationship Specialty Start Date End Date Korey Randolph MD PCP - General Internal Medicine 05/23/17 documented as of this encounter
--- OUTSIDE RECORDS SUMMARY | 2024-04-07 05:36 | XMS_ITS | Encounter Summary ---
Author Organization [facility] Address [address] [place] [address] Care Team Providers Care Binding Cutter Name Role Phone Korey Randolph MD Primary Care Provider Reason for Visit * Reason Comments Osteoporosis Encounter Details Date Type Department Care Team (Latest Contact Info) Description 01/12/2023 10:30 AM CDT Office Visit [facility] [address] [phone] Truman Khalil MD [address] [address] Other osteoporosis 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 pathological [...] points, staff should administer the PHQ-9) 0 01/12/2023 Comments No Sex and Gender Information Value Date Recorded Sex Assigned at Not on file 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 Gender Identity Female 08/18/2019 3:36 PM CDT Sexual Orientation Straight 08/18/2019 3: 35 PM CDT documented as of this encounter Last Filed Vital Signs Vital Sign Reading Time Taken Comments Blood Pressure 120/60 01/12/2023 10:22 AM CDT Pulse 72 01/12/2023 10:22 AM CDT Temperature 36.5 ??C (97.7 ??F) 01/12/2023 10:22 AM C DT Respiratory Rate 14 01/12/2023 10:22 AM CDT Oxygen Saturation - - Inhaled Oxygen Concentration - - Weight 64.4 kg (142 lb) 01/12/2023 10:22 AM CDT Height 147.3 cm (4' 9.99 ) 01/12/2023 10:22 AM C DT Body Mass Index 29.69 01/12/2023 10:22 AM CDT documented in this encounter Patient Instructions * Patient Instructions* Truman Khalil MD - 01/12/2023 10:30 AM CDT 1. Continue Prolia 60 mg every 6 months 2. Continue vitamin-D 2000 units daily 3. Calcium from dietary sources. 4. Weight-bearing activities as tolerated 5. Fall precautions. 6. Follow-up in 1 year. documented in this encounter Progress Notes * Truman Khalil MD - 01/12/2023 10:30 AM CDT Images from the original note were not included. Subjective/Objective Patient ID: Meghana Dueñas is a 82 y.o. female. Chief Complaint Osteoporosis HPI: Ms.Brenda Sherry Dueñas is a 82 years old female seen in follow-up for management of osteoporosis. Medical history is notable for hyperlipidemia and grade 1 spondylolisthesis of L4 on L5.. Osteoporosis. DXA performed on 09/07/2022 showed L1-L4 T-score of-2.9, total left hip T-score-1.8 and left femoral neck T-score-2.9. Evaluation for secondary causes was unremarkable. Will recommended Forteo last visit but cost is prohibitive. She started Prolia on 11/30/2022. She is on vitamin-D 2000 units daily. Adequate calcium from dietary sources. Constipation with calcium supplements No history of fragility fractures. No chronic steroids She underwent hysterectomy with unilateral oophorectomy at age 39. She was on HRT for 20 years. No history of smoking or alcohol use. Exercise: Walks: Limited by back pain. She was very active till age 79 . 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 No dental issues. Family history. Mother had osteoporosis in late [...] BY MOUTH TWICE DAILY 180 tablet 3 teriparatide (FORTEO) 20 mcg/dose (600mcg/2.4mL) injection Inject 0.08 mL (20 mcg total) under the skin daily 2.4 mL 3 vitamin E 400 unit capsule Take 1 capsule (400 Units total) by mouth daily No current facility-administered medications on file prior [...] for chest pain, palpitations and leg swelling. Endocrine: Negative for cold intolerance and heat intolerance. Musculoskeletal: Positive for back pain. Skin: Negative for rash and wound. Neurological: Negative for weakness. BP 120/60 Pulse 72 Temp 36.5 ??C (97.7 ??F) (Temporal) Resp 14 Ht 147.3 cm (4' 9.99 ) Wt 64.4 kg (142 lb) LMP (LMP Unknown) BMI 29.69 kg/m?? Wt Readings from Last 3 Encounters: 01/12/23 64.4 kg (142 lb) 09/21/22 63.5 kg (140 lb) 08/25/22 64 kg (141 lb) Physical Exam Constitutional: Appearance: Normal appearance. [...] breath sounds. Musculoskeletal: Cervical back: Neck supple. Neurological: General: No focal deficit present. Mental Status: She is alert and oriented to person, place, and time. 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 Evaluation for secondary causes was unremarkable. Recommended Forteo last visit but cost is prohibitive. Plan. 1. Continue Prolia 60 mg every 6 months 2. Continue vitamin-D 2000 units daily 3. Calcium from dietary sources, 1000 mg daily.. 4. Weight-bearing activities as tolerated 5. Fall precautions. 6. Will repeat bone density 2 years. 7. Follow-up in 1 year. Mixed hyperlipidemia (E78.2) Assessment & Plan: Lipids well controlled. Continue atorvastatin. Truman Khalil MD documented in this encounter Miscellaneous Notes * Assessment & Plan Note - Truman Khalil MD - 01/12/2023 10:48 AM CDT Associated Problem(s): Hyperlipidemia Lipids well controlled. Continue atorvastatin. 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 Evaluation for secondary causes was unremarkable. Recommended Forteo last visit but cost is prohibitive. Plan. 1. Continue Prolia 60 mg every 6 months 2. Continue vitamin-D 2000 units daily 3. Calcium from dietary sources, 1000 mg daily.. 4. Weight-bearing activities as tolerated 5. Fall precautions. 6. Will repeat bone density 2 years. 7. Follow-up in 1 year. documented in this encounter Plan of Treatment Not on file documented as of this encounter Visit Diagnoses Diagnosis Other osteoporosis 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 pathological fracture- Primary Mixed hyperlipidemia documented in this encounter Care Teams Binding Cutter Relationship Specialty Start Date End Date Korey Randolph MD PCP - General Internal Medicine 05/23/17 documented as of this encounter
--- OUTSIDE RECORDS SUMMARY | 2024-04-07 05:36 | XMS_ITS | Encounter Summary ---
Author Organization [facility] Medical [facility] Address [address] [place] [address] Care Team Providers Care Auto Clocks Repairer Name Role Phone Korey Randolph MD Primary Care Provider Reason for Visit * Reason Onset Date Comments Authorization/Certification 11/04/2022 Medical Question/Miscellaneous 11/04/2022 Call Back 11/04/2022 Encounter Details Date Type Department Care Team (Late st Contact Info) Description 11/04/2022 Telephone [facility] [address] [address] Truman Khalil MD [address] [address] Authorization/Certifica tion; Medical Question/Miscellaneous; Call Back Social History Tobacco Use Types [...] on file 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 * Telephone Encounter - Erika Muir - 11/28/2022 1:27 PM CDT Call Back Caller???s Concern: Patient called back and is requestng a call back. She says no one has contactedher to let her know about the Prolia shot. She says she doesn't know if she is able to get it done at [facility] or if she has to get it at [facility]. She says no one has reached out to her regardingscheduling. Please give her a call back regarding this. Caller???s Call back #: [phone] Does message need to be routed? Yes-Action Needed * Telephone Encounter - Annabelle Sandoval MA - 11/25/2022 11:53 AM CDT Returned patient patient call regarding prolia * Telephone Encounter - Celestine Lory - 11/25/2022 10:42 AM CDT Call Back Caller???s Concern: Patient called back because she is wanting to know if the order for Prolia can be sent to: [facility] Address: [address] [place] [address] [place] [address] It is much closer and she can get there by herself. If she does [facility] she would need a ride which with scheduling can cause problems. Please call patient to let her know when sent. Caller???s Call back #: Does message need to be routed? Yes-Action Needed * Telephone Encounter - Erika Muir - 11/25/2022 10:13 AM CDT Call Back Caller???s Concern: Patient called to inform Dr Khalil that she received a letter from the the insurance company telling her that her Denosumab injection has been approved. She states that they toldher a copy of the letter has been sent to Dr Khalil as well. Caller would like a call back to inform her of next steps of how to get her injection performed. Please give her a call back regarding this. Caller???s Call back #: [phone] Does message need to be routed? Yes-Action Needed * Telephone Encounter - Annabelle Sandoval MA - 11/18/2022 4:53 PM CDT Prolia form filled out * Telephone Encounter - Truman Khalil MD - 11/18/2022 1:04 PM CDT Spoke with patient, will start Prolia 60 mg every 6 months. Potential side effects including but not limited to allergic reaction, hypocalcemia and ONJ discussed. Annabelle please fill out paperwork for Prolia. Thanks * Telephone Encounter - Rowan Sprague - 11/17/2022 2:53 PM CDT Spoke with pt. Pt states she can't afford $1,400 for this Rx Forteo. Please advise. * Telephone Encounter - Lizzeth Caldera - 11/17/2022 2:28 PM CDT Call Back Caller???s Concern: Patient spoke with [facility] and was told to have Dr. Khalil order Forteo with [facility] and it has to be billed on insurance as part B and not part D so she won't have to pay for it. Otherwise she will have to pay $1500 per injection. Please review and contact the patient with an update. Caller???s Call back #: [phone] Does message need to be routed? Yes-Action Needed * Telephone Encounter - Rowan Sprague - 11/07/2022 4:43 PM CDT PA for Forteo faxed to [facility] [phone]. * Telephone Encounter - Ivon Olson - 11/04/2022 11:21 AM CDT Medical Question/Miscellaneous Caller???s Concern: Abrahan stated the prior authorization was sent by fax for forteo and they need theform to be filled out and faxed back to [phone] Caller???s Call back #: [phone] Does message need to be routed? Yes-Action Needed * Telephone Encounter - Keiry Larry MA - 11/04/2022 9:15 AM CDT Medical Question/Miscellaneous Caller???s Concern: abrahan, corporate representative from [facility] insurance, called to check on status of prior author appeals form for forteo. They faxed it yesterday and today. Fax number was confirmed Caller???s Call back #: [phone] Does message need to be routed? Yes-Action Needed documented in this encounter Plan of Treatment Not on file documented as of this encounter Visit Diagnoses Not on filedocumented in this encounter Care Teams Auto Clocks Repairer Relationship Specialty Start Date End Date Korey Randolph MD PCP - General Internal Medicine 05/23/17 documented as of this encounter
--- OUTSIDE RECORDS SUMMARY | 2024-04-07 05:36 | XMS_ITS | Encounter Summary ---
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 Calcium level is within normal limits. Patient denies dental work in the last 3 months. Prolia injected. Patient tolerated well. Patient discharged ambulatory. Next appt confirmed. 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 Injection to be given in the upper arm, thigh or abdomen. Refrigerate. 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
--- OUTSIDE RECORDS SUMMARY | 2024-04-07 05:36 | XMS_ITS | Encounter Summary ---
Author Organization [facility] Medical [facility] Address [address] [place] [address] Care Team Providers Care Retail Department Reset Name Role Phone Korey Randolph MD Primary Care Provider Reason for Visit * Reason Onset Date Comments Medical Question/Miscellaneous 10/07/2022 Call Back 10/07/2022 Encounter Details Date Type Department Care Team (Late st Contact Info) Description 10/07/[address] 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 * Telephone Encounter - Rowan Sprague - 10/28/2022 12:04 PM CDT Spoke with Deepti([facility]) in regards to below message. Deepti states a Peer to Peer could not be done. A letter of medical necessity would have to be done and faxed to the appeals dept [phone]. The letter would have to state why pt medically needs medication and if pt has tried and failed anyother medications. * Telephone Encounter - Lili Osei - 10/24/2022 9:55 AM CDT Call Back Caller???s Concern: Patient is trying to get prescription for Forteo per Dr. Khalil to make her bones stronger. Patient has contacted office periodically to check status of prior authorization and has been told Dr. Khalil is working on it. Patient just talked to her insurance and she was advised something about prior fractures. Patient has only had two in her life that she is aware of( 24- 25 years ago). Patient was informed that she needs to try the following medications for osteoporosis before Forteocan be approved: Alendronate Zoledronic Acid Risedronate Prolia Caller???s Call back #: [phone] Does message need to be routed? Yes-Action Needed * Telephone Encounter - Gisella Santacruz - 10/13/2022 9:15 AM CDT Call Back Caller???s Concern: Patient calling to get status of appeal on Vince. She has been trying to get this done for 3 weeks. Caller???s Call back #: [phone] Does message need to be routed? Yes-Action Needed * Telephone Encounter - Rowan Sprague - 10/07/2022 12:18 PM CDT Please see below message. * Telephone Encounter - Ivon Olson - 10/07/2022 11:52 AM CDT Images from the original note were not included. Medical Question/Miscellaneous Caller???s Concern: per previous encounter Lizandro calling from [employer] was checking on the status of the appeal and would like a call back Caller???s Call back #: [phone] Does message need to be routed? Yes-Action Needed documented in this encounter Plan of Treatment Not on file documented as of this encounter Visit Diagnoses Not on filedocumented in this encounter Care Teams Retail Department Reset Relationship Specialty Start Date End Date Korey Randolph MD PCP - General Internal Medicine 05/23/17 documented as of this encounter
--- OUTSIDE RECORDS SUMMARY | 2024-04-07 05:36 | XMS_ITS | Encounter Summary ---
Author Organization [facility] Healthcare Address [address] [place] [address] Care Team Providers Care General Magistrate Name Role Phone Korey Randolph MD Primary Care Provider Reason for Visit * Reason Onset Date Comments Additional Services Or Orders 10/27/2023 Encounter Details Date Type Department Care Team (Late st Contact Info) Description 10/27/2023 Telephone [facility] Primary Care at [address] [place] [address] Korey Randolph MD [address] [place] [address] [address] [place] [address] Additional Services Or Orders Social History Tobacco Use Types Packs/Day Years [...] on file 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 Patient was told she that she have to keep her appt here at [facility].Patient was ok with that. * Telephone Encounter - Sarah López - 10/27/2023 9:22 AM CDT Additional Services or Orders Type of Service Requested:Injection Reason for Request (e.g. condition/symptom, date of COVID exposure if applicable): Details Regarding Additional Services (e.g. type of home health, type of equipment, type of test, etc.): PROLIA INJECTION Where will services be performed? (if outside of the practice, facility name, address, phone/fax offacility): [facility]? Infusion dept? Additional Comments: pt stated [facility] is closer in distance. Requesting to have order placed for their location? Pt is expected to receive next injection in Dec. Please advise Does message need to be routed? Yes-Action Needed documented in this encounter Plan of Treatment Not on file documented as of this encounter Visit Diagnoses Not on filedocumented in this encounter Care Teams General Magistrate Relationship Specialty Start Date End Date Korey Randolph MD PCP - General Internal Medicine 05/23/17 documented as of this encounter
--- OUTSIDE RECORDS SUMMARY | 2024-04-07 05:36 | XMS_ITS | Encounter Summary ---
Author Organization [facility] Address [address] [place] [address] Care Team Providers Care Director Of Vendor Management Name Role Phone Korey Randolph MD Primary Care Provider Reason for Referral * Diagnostic Imaging (Routine) - Closed Specialty Diagnoses / Procedures Referred By Contac t Referred To Contact Diagnoses Spondylosis of lumbar region without myelopathy or radiculopathy Other specified disorders of bone density and structure, multiple sites Procedures DEXA Axial Skeleton Bone Density Multi Site Carl Dorado MD Phone: tel: fax: [address] [address] Referral ID Status Reason Start Date Expiration Date Visits Re quested Visits Authorized [id number] Closed 08/30/2022 09/29/2023 1 1 Reason for Visit * Diagnostic Imaging (Routine) - Closed Specialty Diagnoses / Procedures Referred By Contac t Referred To Contact Diagnoses Spondylosis of lumbar region without myelopathy or radiculopathy Other specified disorders of bone density and structure, multiple sites Procedures DEXA Axial Skeleton Bone Density Multi Site Carl Dorado MD Phone: tel: fax: [address] [address] Referral ID Status Reason Start Date Expiration Date Visits Re quested Visits Authorized [id number] Closed 08/30/2022 09/29/2023 1 1 Encounter Details Date Type Department Care Team (Latest Contact Info) Description 09/07/2022 9:20 AM CDT - 09/07/2022 11:59 PM CDT Hospital Encounter [facility] [address] [place] [address] Spondylosis of lumbar region without myelopathy or radiculopathy; Other specified disorders of bone density and structure, multiple sites Discharge Disposition: Discharge to home or self care Social History Tobacco Use Types Packs/Day Years [...] on file 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 Gender Identity Female 08/18/2019 3:36 PM CDT Sexual Orientation Straight 08/18/2019 3: 35 PM CDT documented as of this encounter Medications at Time of Discharge cholecalciferol (VITAMIN D-3) 1,000 unit capsule Take by mouth daily multivitamin with minerals tablet Take 1 tablet by mouth daily NON FORMULARY, FOR INPATIENT USE, Take 10 mg by mouth daily Prevagen vitamin E 400 unit capsule Take 1 capsule (400 Units total) by mouth daily atorvastatin (LIPITOR) 10 mg tablet Take 1 tablet (10 mg total) by mouth daily 90 tablet 3 06/29/2021 3 fluticasone propionate (FLONASE) 50 mcg/actuation nasal spray SHAKE LIQUID AND USE 2 SPRAYS IN EACH NOSTRIL DAILY 48 g 3 06/27/2022 3 meclizine (ANTIVERT) 25 mg tablet Take 1 tablet (25 mg total) by mouth 3 (three) times a day as needed for dizziness 30 tablet 11 08/03/[address] (PROTONIX) 40 mg EC tablet TAKE 1 TABLET(40 MG) BY MOUTH TWICE DAILY 180 tablet 3 06/27/2022 4 ropivacaine (NAROPIN) 5 mg/mL (0.5 %) injection 4 mL (20 mg total) 3 documented as of this encounter Discharge Disposition Disposition Code Departure Means Destination Discharge to home or self care documented in this encounter Plan of Treatment Not on file documented as of this encounter Procedures Procedure Name Priority Date/Time Associated Diagnosis Comments DEXA AXIAL SKELETON BONE DENSITY 1 OR MORE SITES Schedule Routine, Read Routine (OP Routine) 09/07/2022 9:48 AM CDT Spondylosis of lumbar region without myelopathy or radiculopathy Other specified disorders of bone density and structure, multiple sites documented in this encounter Results * DEXA Axial Skeleton Bone Density Multi Site (09/07/2022 9:48 AM CDT) Anatomical Region Laterality Modality Body N/A Other 09/08/2022 12:5 5 AM CDT Narrative 09/08/2022 9:45 AM CDT EXAM DESCRIPTION: DEXA AXIAL SKELETON BONE DENSITY 1 OR MORE SITES REASON FOR STUDY: 82 y/o ?? year old ??F ??with given history of screening. ?? Postmenopausal Station Cleaning Porter/Model: POW SL ([id number]/N [id number]) CLINICAL INFORMATION: Current height: ??56.8 ??inches ? [...] AM T: ??09/08/2022 9:45 AM Report ID: [id number] Reading Location: ??[id number] Procedure Note Nilson Lara MD - 09/08/2022 EXAM DESCRIPTION: DEXA AXIAL SKELETON BONE DENSITY 1 OR MORE SITES REASON FOR STUDY: 82 y/o year old F with given history of screening. Postmenopausal Station Cleaning Porter/Model: Proactive Comfort Discovery SL ([id number]/N [id number]) CLINICAL INFORMATION: Current height: 56.8 inches Maximum [...] Nilson Lara M.D. MF: ITZEL Report ID: [id number] Reading Location: [place] [address] Carl Dorado MD IMG DXA PROCEDURES Final Resu lt documented in this encounter Visit Diagnoses Diagnosis Spondylosis of lumbar region without myelopathy or radiculopathy Other specified disorders of bone density and structure, multiple sites documented in this encounter Care Teams Director Of Vendor Management Relationship Specialty Start Date End Date Korey Randolph MD PCP - General Internal Medicine 05/23/17 documented as of this encounter
--- OUTSIDE RECORDS SUMMARY | 2024-04-07 05:36 | XMS_ITS | Encounter Summary ---
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 Ailyn ([facility]) stated will an appeal be made regarding this medication or will there be a medication change Please advise (see encounter dated 09.22.22) If needed, Pharmacy(s) medication(s) should be sent to: not needed at this time Caller???s Callback #: [phone] Additional Comments: n/a Does message need to be routed? Yes-Action Needed documented in this encounter Plan of Treatment Not on file documented as of this encounter Visit Diagnoses Not on filedocumented in this encounter Care Teams Tube Mounter Relationship Specialty Start Date End Date Korey Randolph MD PCP - General Internal Medicine 05/23/17 documented as of this encounter
--- OUTSIDE RECORDS SUMMARY | 2024-04-07 05:36 | XMS_ITS | Encounter Summary ---
Author Organization 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 Truman Khalil MD [address] [address] Phone: tel: fax: [address] [address] Phone: tel: fax: Referral ID Status Reason Start Date Expiration Date Visits Re quested Visits Authorized [id number] Closed 11/30/2022 12/30/2023 99 99 Encounter Details Date Type Department Care Team (Latest Contact Info) Description 11/30/2022 2:45 PM CDT Clinical Support [facility] Cancer [address] [address] Other osteoporosis 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 pathological [...] on file 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 Calcium level is within normal limits. Patient states no dental work in the last few months. Prolia package insert given to patient. Prolia injected. Patient tolerated well. Patient discharged [...] 60 mg 60 mg, subcutaneous, Once, On Mon11/30/22 at 1500, For 1 dose, Calcium level should be greater than 8 mg/dl. Injection to be given in the upper arm, thigh or abdomen. Refrigerate. 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
--- OUTSIDE RECORDS SUMMARY | 2024-04-07 05:36 | XMS_ITS | Encounter Summary ---
Author Organization [facility] Healthcare Address [address] [place] [address] Care Team Providers Care Account Manager Employee Benefits Name Role Phone Korey Randolph MD Primary Care Provider Reason for Visit * Reason Comments Unsuccessful Phone Call 1 Successful Phone Call Encounter Details Date Type Department Care Team (Late st Contact Info) Description 06/01/2023 MAGEN IP Outreach [facility] Accountable Care Organization [address] [place] [id number] Dipika Woods MA [address] [place] [address] DR AMATO [address] [place] [id number] Social History Tobacco Use Types Packs/Day Years Used Date Smoking Tobacco: Never Smokeless Tobacco: Never AUDIT-C Answer Date Recorded Q1: How often do you have a drink containing alcohol? Never 05/31/2023 Q2: How many drinks containi ng alcohol do you have on a typical day when you are drinking? Patient does not drink Q3: How often do you have si x or more drinks on one occasion? Never 05/31/2023 PHQ-2 Answer Date Recorded PHQ-2 Total Score (If total score is 3 or more points, staff should administer the PHQ-9) 0 01/12/2023 Personal Safety Answer Date Recorded Have you ever been in or are you currently in a harmful physical or emotional relationship or is someone making you feel afraid or unsafe? 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 Patient status post-discharge: Q1 - Better Status Details: - pt reports she is feeling better today, no new or worsening symptoms. Pt is taking new medication prescribed. Pt does report diarrhea from meds, advised to drink plenty of fluid. Discharge Instructions Reviewed - Yes Details: - no questions at this time Medication Reconciliation Completed: - Yes Details: - Appointment status: - Already scheduled Appointment Date: 06/06/2023 Patient educated about same day sick appts at PCP office and s/s to report to physician. Pt verbalized understanding of information presented. No additional needs identified at this time. Provided mycontact information for future needs. Dipika Woods Care Farm [facility] [phone] ER CONTROL SUPERVISOR * Dipika Woods MA - 06/01/2023 9:14 AM CST Attempted to contact patient and daughter. Left message with my contact information. [facility] letter sent to pt in mychart. Dipika Woods Care [employer] [facility] [phone] ER CONTROL SUPERVISOR documented in this encounter Plan of Treatment Not on file documented as of this encounter Visit Diagnoses Not on filedocumented in this encounter Care Teams Account Manager Employee Benefits Relationship Specialty Start Date End Date Korey Randolph MD PCP - General Internal Medicine 05/23/17 documented as of this encounter
--- OUTSIDE RECORDS SUMMARY | 2024-04-07 05:36 | XMS_ITS | Encounter Summary ---
Author Organization [facility] Healthcare Address [address] [place] [address] Care Team Providers Care Treatment Supervisor Name Role Phone Korey Randolph MD Primary Care Provider Encounter Details Date Type Department Care Team (Late st Contact Info) Description 01/16/2023 Telephone [facility] [address] [facility] [address] [place] [phone] Carl Dorado MD 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 She just received her first injection of Prolia about a month ago. Explained to give it some time, at least 3 months of treatment prior to consideration of surgery. Gave the patient a heads up that Dr. Dorado may not be able to perform future surgeries after February 01. Patient to check back with office about status of Dr. Dorado's appts moving forward or if the patient may need to find another surgeon for future care. * Telephone Encounter - Monica Isabel - 01/16/2023 2:07 PM CDT Patient is calling to see when she should come back to see Dr. Dorado after her injection on 09/30. Please contact patient documented in this encounter Plan of Treatment Not on file documented as of this encounter Visit Diagnoses Not on filedocumented in this encounter Care Teams Treatment Supervisor Relationship Specialty Start Date End Date Korey Randolph MD PCP - General Internal Medicine 05/23/17 documented as of this encounter
--- OUTSIDE RECORDS SUMMARY | 2024-04-07 05:36 | XMS_ITS | Clinical Summary ---
Author Organization [facility] Address [address] [place] [address] Care Team Providers Care Administrative Associate Name Role Phone Korey Randolph MD Primary Care Provider Allergies No known active allergies Medications vitamin E 400 unit capsule Take 1 capsule (400 Units total) by mouth daily Active multivitamin with minerals tablet Take 1 tablet by mouth daily Active cholecalciferol (VITAMIN D-3) 1,000 unit capsule Take by mouth daily Active NON FORMULARY, FOR INPATIENT USE, Take 10 mg by mouth daily Prevagen Active triamcinolone (KENALOG) 0.1 % creamIndications :Contact dermatitis, unspecified contact dermatitis type, unspecified trigger Apply topically 3 (three) times a day for 10 days 80 g 3 Active meclizine (ANTIVERT) 25 mg tablet TAKE 1 TABLET(25 MG) BY MOUTH THREE TIMES DAILY NEEDED FOR DIZZINESS 90 tablet 3 3 Active atorvastatin (LIPITOR) 10 mg tablet TAKE 1 TABLET(10 MG) BY MOUTH DAILY 90 tablet [address] (PROTONIX) 40 mg EC tablet TAKE 1 TABLET(40 MG) BY MOUTH TWICE DAILY 180 tablet 3 4 Active albuterol HFA (PROVENTIL HFA,VENTOLIN HFA,PROAIR HFA) 90 mcg/actuation inhalerIndicatio ns:Lower respiratory infection,Acute cough Inhale 2 puffs every 6 (six) hours as needed for wheezing for up to 7 days 1 each 4 Active benzonatate (TESSALON) 100 mg capsuleIndicatio ns:Cough Take 1 capsule (100 mg total) by mouth 3 (three) times a day as needed for cough 42 capsule 4 Active azithromycin (ZITHROMAX) 250 mg tabletIndication s:Lower respiratory infection,Acute cough Take 2 tabs (500 mg) by mouth today, than 1 tab (250 mg) daily for 4 days. 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 Evaluation for secondary causes was unremarkable. Will continue denosumab 60 mg q.6 months. Will arrange for denosumab at [facility]. Continue vitamin-D 2000 units daily Calcium from dietary sources 1000 mg daily Weight-bearing exercises for precautions discussed. 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 7. Follow-up in 1 year. Assessment & Plan (09/21/2022 11:32 PM CDT): 81 years old female with history of spondylolisthesis of L4-L5 seen for evaluation and management of osteoporosis. She was seen by Neurosurgery who recommended L4- L5 laminectomy and fusion after optimization of BMD. [...] were addressed. Follow-up in 4 months. . Spondylolisthesis at L4-L5 level 08/25/2022 Assessment & Plan (08/25/2022 2:01 PM CDT): Ms. Dueñas has a grade 1 spondylolisthesis of L4 on L5 by MRI with slight increase in the spondylolisthesis compared to the study 1999 and increased spondylolisthesis on the upright x-rays compared to the MRI (8 mm versus 3 mm). She has ozpw-dadsxge-hery-right foraminal stenosis and severe lateral recess stenosis bilaterally at this level. We discussed that with her advanced age over 81 she is a increased risk complications and . She had been very active up until age 79 and 1 this Exaprotect in the past. I will offer her surgery in the form of L4-5 laminectomy and fusion with instrumentation given her lack of response to extensive conservative treatment. We will perform this at our earliest convenience. Stricture and stenosis of esophagus 08/15/2019 Overview (08/15/2019): Added automatically from request for surgery [id number] Gastroesophageal reflux disease 08/15/2019 Overview (08/15/2019): Added automatically from request for surgery [id number] Abdominal pain, epigastric 08/15/2019 Overview (08/15/2019): Added automatically from request for surgery [id number] Intermittent epigastric abdominal pain 0 Assessment & Plan (08/14/2019 2:35 PM CDT): Acute gastritis VS ulceration D/T progressive sx, Hx of GERD. Recommended decreasing Protonix back to once daily, stopping aspirin therapy (after discussion of risk vs benefit), modifying diet with dietary education provided today in clinic. Nighttime use of H2 geovanna such as Pepcid along with p.r.n. use of Gaviscon. Recommended CBC to check for anemia, consultation to rubber goods tester for EGD for further evaluation of ulceration or other etiologies. LLQ pain 08/14/2019 Assessment & Plan (12/31/2019 2:41 PM CDT): Almost immediately after beginning hi fibe diet her bowels normalized to daily without straining and all abd discomfort disappeared. She is ecstatic at the response. Return prn Assessment & Plan (12/06/2019 2:06 PM CDT): manuy months of intermitent LLQ burning 2 hours duration no inciting or relieving factors. 01/14 colon, recent CT, EGD 08/20. No systemic sx/signs. Constipation and irregular bms. Lives alone and eating habits no fiber. Will try hi fiber diet and recap in 4 weeks Assessment & Plan (08/14/2019 2:34 PM CDT): Urine testing unremarkable, detailed above. LLQ pain, gas presented after increasing protonix which is possibly to blame for her pain, suspected constipation. Recommending hold and call ab/pelvic CT w/o contrast to complete today after visit to rule out concerns of diverticulitis as cause of her left lower quadrant pain. Addendum below indicating findings on testing and further recommendations beyond the above-mentioned. Spondylosis of lumbar region without myelopathy or radiculopathy 06/26/2019 Gastroesophageal reflux disease without esophagi tis 10/07/2016 Assessment & Plan (08/14/2019 2:33 PM CDT): Stable but concerns of possible gastritis. Protonix once daily morning along with H2 geovanna at night. Dietary modifications discussed in detail with Pt. Hyperlipidemia 10/07/2016 Assessment & Plan (01/15/2024 10:38 AM CDT): Lipids well controlled Continue atorvastatin Assessment & Plan (01/12/2023 10:48 AM CDT): Lipids well controlled. Continue atorvastatin. Assessment & Plan (09/21/2022 11:27 PM CDT): Lipids well controlled. LDL 90. Continue atorvastatin Esophageal stricture 10/07/2016 Assessment & Plan (08/14/2019 2:33 PM CDT): Prior EGD reviewed with successful dilation in 2017 in no current hoarseness, cough or signs of silent reflux, but notable concerns of gastritis. Recommending consultation for EGD at [facility] for further evaluation given acute concerns. 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 This resolved spontaneously after 5 days of conservative treatment and SBFT no definable pathology. She has returned to normal and is asx at present. I think she had a viral induced partial ileus which resolved. Return prn. Mild intermittent asthma without complication 01/17/20 19 06/26/2019 Lower respiratory infection 04/10/2018 04/17/2018 Assessment & Plan (04/10/2018 11:42 AM 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 DISTRIBUTOR): Considering improvement with neb treatment, I am suspicious of bronchitis. Z- pack, medrol pack, and proair use Q4hrs for next 3 days, then prn for indications provided in office after. CXR to r/o pneumonia considering hx. Increase fluids, robatussin for nocturnal cough and mucinex for daytime cough expectorant. RTC in 3 days for re-evaluation Encounters Date Type Department Care Team Description 04/04/2024 Telephone [facility] Primary Care at [address] [place] [address] Korey Randolph MD 03/31/2024 Orders Only [facility] [address] [place] [address] Korey Randolph MD 03/23/2024 11:15 AM 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 DISTRIBUTOR Office Visit [facility] [place] [address] [place] [address] Neha Shore, PENELOPE Lower respiratory infection (Primary Dx); Acute cough 02/05/2024 Orders Only [facility] [address] [place] [address] Truman Khalil MD 01/30/2024 Telephone [facility] Endocrinology at [address] [place] [phone] Evelyn Hoyt LPN PA needed for Prolia to be done at [facility] 01/23/2024 Orders Only [facility] Endocrinology at [address] [phone] Evelyn Hoyt LPN Other osteoporosis 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 pathological fracture (Primary Dx) 01/15/2024 10:30 AM CDT Office Visit [facility] Endocrinology at [address] [place] [phone] Truman Khalil MD Other osteoporosis 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 pathological fracture (Primary Dx); Mixed hyperlipidemia from Last 3 Months Immunizations Name Administration Dates Next Due Influenza, Quad, Adjuvantate d, Intramuscular 01/31/2023,01/01/2021,12/10/2019 Influenza, Quadrivalent, Hig h Dose, Preservative Free, Intrr 02/11/2022 Influenza, Trivalent, High D ose, Split, Preservative Free, Intramuscular 01/24/2019,12/27/2017,12/01/2016,12/12,12/10/2014,12/24/2013 Influenza, Trivalent, Preser vative Free, Intramuscular 12/10/2019 Moderna SARS-CoV-2 Monovalen t Vaccination (12+ YRS) 06/16/2020,05/13/2020 Pneumococcal Conjugate PCV 13 12/13/2015, 015 Pneumococcal Polysaccharide PPV23 02/26/2018 Surgical History Surgery Date Site/Laterality Comments COLONOSCOPY 01/17/2014 UPPER GASTROINTESTINAL ENDOSCOPY HYSTERECTOMY CHOLECYSTECTOMY APPENDECTOMY BLADDER NECK SUSPENSION ESOPHAGOGASTRODUODENOSCOPY 07/11/2022 CATARACT EXTRACTION TUBAL LIGATION Medical History Medical History Date Comments Hyperlipidemia GERD (gastroesophageal reflux disease) Arthritis Vertigo Sleeping difficulties Bronchitis Pneumonia Osteoporosis Family History Medical History Relation Name Comments Arthritis Father Heart attack Father Heart disease Father Cancer Maternal Grandfather Alzheimer's disease Mother Osteoporosis Mother Relation Name Status Comments Father Maternal Grandfather Mother Social History Tobacco Use Types Packs/Day Years [...] on file Legal Sex Female 11:27 PM 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 DISTRIBUTOR Gender Identity Female 08/18/2019 3:36 PM CDT Sexual Orientation Straight 08/18/2019 3: 35 PM CDT Obstetrics History Last Filed Vital Signs Vital Sign Reading Time Taken Comments Blood Pressure 116/62 03/23/2024 11:16 AM 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 DISTRIBUTOR Pulse 85 03/23/2024 11:16 AM 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 DISTRIBUTOR Temperature 36.2 ??C (97.2 ??F) 03/23/2024 1 1:16 AM 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 DISTRIBUTOR Respiratory Rate 20 03/23/2024 11:1 6 AM 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 DISTRIBUTOR Oxygen Saturation 97% 03/23/2024 11: 16 AM 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 DISTRIBUTOR Inhaled Oxygen Concentration - - Weight 66.1 kg (145 lb 12.8 oz) 024 11:16 AM 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 DISTRIBUTOR Height 144.8 cm (4' 9 ) 03/23/2024 11:1 6 AM 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 DISTRIBUTOR Body Mass Index 31.55 03/23/2024 11:16 AM 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 DISTRIBUTOR Plan of Treatment Health Maintenance Due Date Last Done Comments DTaP/Tdap/Td Vaccine (1 - Tdap) 1951 Hepatitis B Screening 1959 Zoster Vaccine (1 of 2) 1991 Covid-19 Vaccine (6 - 2023-2 5 season) 2023 01/31/2023, 02/11/2022, 01/27/2021, Additional history exists Influenza Vaccine (#1) 2023 , 02/11/2022, 01/01/2021, Additional history exists Colon Cancer Screening-Colonoscopy 01/18/2024 01/17/2014, 01/17/2014 Well Visit 65+ 06/05/2024 06/06/2023, 06/03, 06/29/2021, Additional history exists Fall Risk Assessment 08/07/2024 08/08/2023, 06/06/2023, 05/31/2023, Additional history exists Osteoporosis Screening-Bone Density Scan 09/07/2024 09/07/2022, 09/07/2022 Depression Screening 01/14/2025 01/15/2024, 08/08/2023, 06/06/2023, Additional history exists Breast Cancer Screening-Mammogram 02/08/2025 02/09/2024, 11/11/2022, 08/17/2021, Additional history exists Colon Cancer Screening-CT Colonography Discontinued 01/17/2014, 01/17/2014 Colon Cancer Screening-DNA Stool Discontinued 01/18/20 14, 01/17/2014 Colon Cancer Screening-FIT Discontinued 01/17/2014, Colon Cancer Screening-Sigmoidoscopy Discontinued 01/17/2014, 01/17/2014 Pneumococcal vaccine 65+ Completed 018, 12/13/2015, 01/15/2015 Procedures Procedure Name Priority Date/Time Associated Diagnosis Comments SCAN - RADIOLOGY/IMAGING 03/31/2024 SCREENING MAMMOGRAM BILATERAL W WILLIE Schedule Routine, Read Routine (OP Routine) 02/09/2024 DEXA AXIAL SKELETON BONE DENSITY 1 OR MORE SITES Schedule Routine, Read Routine (OP Routine) 09/07/2022 9:48 AM CDT Spondylosis of lumbar region without myelopathy or radiculopathy Other specified disorders of bone density and structure, multiple sites COLONOSCOPY IMAGES 01/17/2014 from Last 3 Months or Most Recently Relevant to Health Maintenance Results * SCAN - RADIOLOGY/IMAGING (03/31/2024) Anatomical Region Laterality Modality Other us Korey Ranodlph MD Final R esult * Screening Mammogram Bilateral W Willie (02/09/2024) Anatomical Region Laterality Modality Breast Bilateral Mammography us Generic External Data Provider IMG MAMMO PROCEDU RES Final Result * DEXA Axial Skeleton Bone Density Multi Site (09/07/2022 9:48 AM CDT) Anatomical Region Laterality Modality Body N/A Other 09/08/2022 12:5 5 AM CDT Narrative 09/08/2022 9:45 AM CDT EXAM DESCRIPTION: DEXA AXIAL SKELETON BONE DENSITY 1 OR MORE SITES REASON FOR STUDY: 82 y/o ?? year old ??F ??with given history of screening. ?? 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 [...] AM T: ??09/08/2022 9:45 AM Report ID: [id number] Reading Location: ??[id number] Procedure Note Nilson Lara MD - 09/08/2022 EXAM DESCRIPTION: DEXA AXIAL SKELETON BONE DENSITY 1 OR MORE SITES REASON FOR STUDY: 82 y/o year old F with given history of screening. 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 MF: ITZEL Report ID: [id number] Reading Location: [place] [address] Carl Dorado MD IMG DXA PROCEDURES Final Resu lt * COLONOSCOPY IMAGES (01/17/2014) Anatomical Region Laterality Modality Other Narrative 01/17/2014 Ordered by an unspecified provider. Historical Provider GI PROCEDURE ORDERABLES F inal Result from Last 3 Months or Most Recently Relevant to Health [place] [address] [place] [address] MEDICARE SOLUTIONS Member Subscriber Plan / Payer (Ef fective 2020-Present) Name:Meghana Dueñas Relation to Subscriber:Self Name:Meghnaa Dueñas Payer ID:[id number] (NAIC) Type:UHC MEDICARE Address: [place] [id number] MEDICARE SOLUTIONS MEDICARE MEDICARE Fieldbook Advance Directives For more information, please contact: [phone] Documents on File Type Date Recorded Patient Rn Cardiovascular Expl anation ADVANCE DIRECTIVE 04/13/2020 9:34 AM SHAKIR HOLT * Full Code (Latest Code Status on File) Date Activated Date Inactivated Comments 05/31/2023 3:38 AM 05/31/2023 3:45 PM * Full Code Date Activated Date Inactivated Comments 07/11/2022 11:24 AM 07/11/2022 5:48 PM * Full Code Date Activated Date Inactivated Comments 04/06/2020 5:51 PM 04/10/2020 8:32 PM * Full Code Date Activated Date Inactivated Comments 08/19/2019 8:00 AM 08/19/2019 1:45 PM * Full Code Date Activated Date Inactivated Comments 08/19/2019 7:59 AM 08/19/2019 8:00 AM Care Teams Administrative Associate Relationship Specialty Start Date End Date Korey Randolph MD PCP - General Internal Medicine 05/23/17
--- OUTSIDE RECORDS SUMMARY | 2024-04-07 05:36 | XMS_ITS | Encounter Summary ---
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 Gender Identity Female 08/18/2019 3:36 PM CDT Sexual Orientation Straight 08/18/2019 3: 35 PM CDT documented as of this encounter Progress Notes * Evelyn Hoyt LPN - 01/23/2024 5:12 PM CDT Order entered for Prolia to be performed at [facility] documented in this encounter Plan of Treatment Not on file documented as of this encounter Visit Diagnoses Diagnosis Other osteoporosis 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 pathological fracture- Primary documented in this encounter Orders Appointment Requests Count Last Ordered Date Fi rst Ordered Date INFUSION APPT REQUEST 60 MIN 1 01/23/2024 documented in this encounter Care Teams Housekeeper Nanny Relationship Specialty Start Date End Date Korey Randolph MD PCP - General Internal Medicine 05/23/17 documented as of this encounter
--- OUTSIDE RECORDS SUMMARY | 2024-04-07 05:36 | XMS_ITS | Encounter Summary ---
Author Organization [facility] Healthcare Address [address] [place] [address] Care Team Providers Care Project Architect Name Role Phone Korey Randolph MD Primary Care Provider Reason for Visit * Reason Comments Rash Pt. Presents in offi ce with rash starting on 01/12/23 bilateral legs, now appearing on bilateral arms, chest, and mid back. Pt. States the rash is irritating, itchy, denies discharge. Pt. Denies having any other sx. 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 Gender Identity Female 08/18/2019 3:36 PM CDT Sexual Orientation Straight 08/18/2019 3: 35 PM CDT documented as of this encounter Last Filed Vital Signs Vital Sign Reading Time Taken Comments Blood Pressure 92/68 01/15/2023 8:52 AM CDT Pulse 95 01/15/2023 8:52 AM CDT Temperature 36.5 ??C (97.7 ??F) 01/15/2023 8:52 AM CD T Respiratory Rate 18 01/15/2023 8:52 AM CDT Oxygen Saturation 96% 01/15/2023 8:52 AM CDT Inhaled Oxygen Concentration - - Weight 63.9 kg (140 lb 12.8 oz) 01/15/2023 8:52 AM CDT Height 147.3 cm (4' 9.99 ) 01/15/2023 8:52 AM CD T Body Mass Index 29.44 01/15/2023 8:52 AM CDT documented in this encounter Patient Instructions * Patient Instructions* Rita Stout NP - 01/15/2023 8:45 AM CDT Complete the prednisone as directed You may use Benadryl or Zyrtec for itching You can use an OTC hydrocortisone cream to soothe your skin topically Keep your skin cool & wear loose clothing to avoid becoming hot, which could increase the itching. If your rash is not getting better after finishing the steroids, please RTC or follow up w PCP If your symptoms worsen- go to ER documented in this encounter Ordered Prescriptions Prescription Sig Dispense Quantity Refills Last Filled Start Date End Date triamcinolone (KENALOG) 0.1 % creamIndications:C ontact dermatitis, unspecified contact dermatitis type, unspecified trigger Apply topically 3 (three) times a day for 10 days 80 g 01/15/2023 predniSONE (DELTASONE) 10 mg tabletIndications: Contact dermatitis, unspecified contact dermatitis type, unspecified trigger Take 4 tablets days 1 & 2, take 3 tablets days 3 & 4, take 2 tablets days 5 & 6, take 1 tablet days 7-10 22 tablet 01/15/2023 4 documented in this encounter Progress Notes * Rita Stout, WELDING MACHINE OPERATOR ELECTRON BEAM - 01/15/2023 8:45 AM CDT Images from the original note were not included. Subjective/Objective Patient ID: Meghana Dueñas is a 82 y.o. female. Chief Complaint Rash (Pt. Presents in office with rash starting on 01/12/23 bilateral legs, now appearing on bilateral arms, chest, and mid back. Pt. States the rash is irritating, itchy, denies discharge. Pt. Denies having any other sx. ) Patient [facility] care for rash on bilateral arms, bilateral legs, and chest x3 days. She states that she used a new lotion prior to rash starting. She states that the rash appears to bespreading. The rash is now on her chest. She has been using topical Benadryl cream to help with itching. She denies any shortness of breath, fevers, or chills. Rash Pertinent negatives include no fatigue, fever or shortness of breath. Review of Systems Constitutional: Negative for chills, diaphoresis, fatigue and fever. Respiratory: Negative for chest tightness and shortness of breath. Cardiovascular: Negative for chest pain. Skin: Positive for rash. Psychiatric/Behavioral: Negative for confusion. Physical Exam Vitals reviewed. Constitutional: Appearance: Normal appearance. She is not ill-appearing. HENT: Head: Normocephalic. Mouth/Throat: Pharynx: Oropharynx is clear. Cardiovascular: Rate and Rhythm: Normal rate. Pulmonary: Effort: Pulmonary effort is normal. Musculoskeletal: General: Normal range of motion. Skin: General: Skin is warm and dry. Findings: Rash present. Rash is macular and papular. Comments: Macular papular rash on bilateral arms, bilateral legs, and chest. No noted drainage. Neurological: Mental Status: She is alert and oriented to person, place, and time. Mental status is at baseline. Psychiatric: Mood and Affect: Mood normal. Behavior: Behavior normal. Thought Content: Thought content normal. Judgment: Judgment normal. Vitals: 01/15/23 0852 BP: 92/68 BP Location: Right arm Patient Position: Sitting Pulse: 95 Resp: 18 Temp: 36.5 ??C (97.7 ??F) TempSrc: Oral SpO2: 96% Weight: 63.9 kg (140 lb 12.8 oz) Height: 147.3 cm (4' 9.99 ) Assessment/Plan Depo-Medrol injection given in office today Complete the prednisone as directed You may use Benadryl or Zyrtec for itching Kenalog cream to soothe your skin topically Keep your skin cool & wear loose clothing to avoid becoming hot, which could increase the itching. If your rash is not getting better after finishing the steroids, please RTC or follow up w PCP If you develop any trouble breathing or rapidly increasing rash go to the ER for further evaluation Diagnoses and all orders for this visit: Contact dermatitis, unspecified contact dermatitis type, unspecified trigger (Primary) - predniSONE (DELTASONE) 10 mg tablet; Take 4 tablets days 1 & 2, take 3 tablets days 3 & 4, take 2 tablets days 5 & 6, take 1 tablet days 7-10 - triamcinolone (KENALOG) 0.1 % cream; Apply topically 3 (three) times a day for 10 days - methylPREDNISolone acetate (DEPO-medrol) injection 40 mg No results found for this or any previous visit (from the past 4 hour(s)). Patient Education: Disposition Treatment plan including expectations, follow up, and return precautions discussed with patient/parent, verbalizes understanding. Medication dosage, use, and potential adverse reactions discussed with patient/parent. Advised to follow up with PCP if symptoms do not resolve as expected or sooner if condition worsens. Signs/symptoms warranting ER evaluation reviewed. Patient and/or guardian was given an opportunity to ask questions, questions answered. Rita Stout NP documented in this encounter Plan of Treatment Not on file documented as of this encounter Visit Diagnoses Diagnosis Contact dermatitis, unspecified contact dermatitis type, unspecified trigger- Primary documented in this encounter Administered Medications Inactive Administered Medications - up to 3 most recent administrations Medication Order MAR Action Action Date Dose Rate Site methylPREDNISolone acetate (DEPO-medrol) injection 40 mg 40 mg, intramuscular, Once, On 01/15/23 at 0945, For 1 doseIndications:Contact dermatitis, unspecified contact dermatitis type, unspecified trigger Given 01/15/2023 9:17 AM CDT 40 mg Right Dorsogluteal/Butto ck documented in this encounter Care Teams Project Architect Relationship Specialty Start Date End Date Korey Randolph MD PCP - General Internal Medicine 05/23/17 documented as of this encounter
--- OUTSIDE RECORDS SUMMARY | 2024-04-07 05:36 | XMS_ITS | Encounter Summary ---
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 Gender Identity Female 08/18/2019 3:36 PM CDT [...] mouth daily 90 tablet 3 06/29/[address] (PROTONIX) 40 mg EC tablet TAKE 1 TABLET(40 MG) BY MOUTH TWICE DAILY 180 tablet 3 06/27/2022 4 teriparatide (FORTEO) 20 mcg/dose (600mcg/2.4mL) injectionIndicatio ns:Other osteoporosis 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 pathological fracture Inject 0.08 mL (20 mcg total) under the skin daily 2.4 mL 3 09/21/2022 4 documented as of this encounter Discharge Disposition Disposition Code Departure Means Destination Discharge to home or self care documented in this encounter Plan of Treatment Not on file documented as of this encounter Visit Diagnoses Not on filedocumented in this encounter Care Teams Beater And Pulper Feeder Relationship Specialty Start Date End Date Korey Randolph MD PCP - General Internal Medicine 05/23/17 documented as of this encounter
--- OUTSIDE RECORDS SUMMARY | 2024-04-07 05:36 | XMS_ITS | Encounter Summary ---
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 Gender Identity Female 08/18/2019 3:36 PM CDT Sexual Orientation Straight 08/18/2019 3: 35 PM CDT documented as of this encounter Ordered Prescriptions Prescription Sig Dispense Quantity Refills Last Filled Start Date End Date nitrofurantoin monohydrate (MACROBID) 100 mg capsule Take 1 capsule (100 mg total) by mouth 2 (two) times a day for 5 days For UTI 10 capsule 08/01/2023 documented in this encounter Plan of Treatment Not on file documented as of this encounter Visit Diagnoses Not on filedocumented in this encounter Care Teams Button Facing Machine Operator Relationship Specialty Start Date End Date Korey Randolph MD PCP - General Internal Medicine 05/23/17 documented as of this encounter
--- OUTSIDE RECORDS SUMMARY | 2024-04-07 05:36 | XMS_ITS | Encounter Summary ---
Author Organization [facility] Healthcare Address [address] [place] [address] Care Team Providers Care Farm General Manager Name Role Phone Korey Randolph MD Primary Care Provider Reason for Visit * Reason Comments Ear Problem B/L ear pressure. Sh e is experiencing minor dizziness. 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 Gender Identity Female 08/18/2019 3:36 PM CDT Sexual Orientation Straight 08/18/2019 3: 35 PM CDT documented as of this encounter Last Filed Vital Signs Vital Sign Reading Time Taken Comments Blood Pressure 104/60 02/09/2023 1:26 PM [employer] [employer] Pulse 81 02/09/2023 1:26 PM [employer] [employer]ER Temperature 36.7 ??C (98.1 ??F) 02/09/2023 1:26 PM CS T Respiratory Rate 18 02/09/2023 1:26 PM [facility] Oxygen Saturation 99% 02/09/2023 1:26 PM [employer] [employer] Inhaled Oxygen Concentration - - Weight 63.5 kg (140 lb) 02/09/2023 1:26 PM [employer] [employer] Height 134.6 cm (4' 5 ) 02/09/2023 1:26 PM [employer] [employer] Body Mass Index 35.04 02/09/2023 1:26 PM [employer] documented in this encounter Ordered Prescriptions Prescription Sig Dispense Quantity Refills Last Filled Start Date End Date amoxicillin-clavul anate (AUGMENTIN) 875-125 mg per tabletIndications: Acute non-recurrent maxillary sinusitis Take 1 tablet by mouth 2 (two) times a day for 10 days 20 tablet 02/09/2023 02/19/2023 documented in this encounter Progress Notes * Mary Reynoso, PENELOPE - 02/09/2023 1:30 PM CST Images from the original note were not included. Subjective/Objective Patient ID: Meghana Dueñas is a 82 y.o. female. Chief Complaint Ear Problem (B/L ear pressure. She is experiencing minor dizziness. ) Pt presents to clinic c/o sinus pressure, ear pressure, and dizziness. Dizziness occurs with movement. Sinus pressure has been present all week. Dizziness x 2-3 days. Denies fever, difficulty breathing or swallowing, headache. No known sick contacts. Not taking anything OTC. Review of Systems Constitutional: Negative for chills, fatigue and fever. HENT: Positive for ear pain (pressure) and sinus pressure. Negative for congestion, rhinorrhea, sinus pain, sore throat and trouble swallowing. Respiratory: Negative for cough, chest tightness, shortness of breath and wheezing. Cardiovascular: Negative for chest pain and palpitations. Gastrointestinal: Negative for abdominal pain, diarrhea, nausea and vomiting. Musculoskeletal: Negative for myalgias. Skin: Negative for rash. Neurological: Positive for dizziness. Negative for weakness, light-headedness and headaches. Physical Exam Vitals reviewed. Constitutional: General: She is not in acute distress. Appearance: Normal appearance. HENT: Head: Normocephalic. Right Ear: Hearing, tympanic membrane, ear canal and external ear normal. No middle ear effusion. Tympanic membrane is not erythematous or bulging. Left Ear: Hearing, tympanic membrane, ear canal and external ear normal. No middle ear effusion. Tympanic membrane is not erythematous or bulging. Nose: Right Sinus: Maxillary sinus tenderness present. Left Sinus: Maxillary sinus tenderness present. Mouth/Throat: Lips: [place]. Mouth: Mucous membranes are moist. Pharynx: Oropharynx is clear. Cardiovascular: Rate and Rhythm: Normal rate and regular rhythm. Pulses: Normal pulses. Heart sounds: Normal heart sounds. Pulmonary: Effort: Pulmonary effort is normal. No respiratory distress. Breath sounds: Normal breath sounds. No stridor. No wheezing, rhonchi or rales. Musculoskeletal: General: Normal range of motion. Skin: General: Skin is warm and dry. Neurological: Mental Status: She is alert and oriented to person, place, and time. Cranial Nerves: Cranial nerves 2-12 are intact. Sensory: Sensation is intact. Motor: Motor function is intact. Coordination: Coordination is intact. Gait: Gait is intact. Psychiatric: Mood and Affect: Mood normal. Vitals: 02/09/23 1326 BP: 104/60 Pulse: 81 Resp: 18 Temp: 36.7 ??C (98.1 ??F) TempSrc: Temporal SpO2: 99% Weight: 63.5 kg (140 lb) Height: 134.6 cm (4' 5 ) Assessment/Plan Diagnoses and all orders for this visit: Acute non-recurrent maxillary sinusitis (Primary) - amoxicillin-clavulanate (AUGMENTIN) 875-125 mg per tablet; Take 1 tablet by mouth 2 (two) times aday for 10 days Finish the entire antibiotic prescription. Take this with food. Eat yogurt or take probiotic daily while on antibiotics. Symptomatic treatments include: -Over the counter antihistamine such as loratadine (Claritin) or cetirizine (Zyrtec) to reduce secretions. The D formula includes pseudoephedrine and can be helpful as a decongestant but SHOULD NOTBE USED IF YOU HAVE A HISTORY OF HIGH BLOOD PRESSURE. -Coricidin HBP may be taken for congestion if you have a history of high blood pressure. -Tessalon, Dextromethorphan (Robitussin) or Delsym for cough -Guafenesin (Mucinex) to thin secretions -Acetaminophen (Tylenol), ibuprofen (Motrin, Advil), or Aleve (naproxen) for pain or fever. -The use of hypertonic saline to irrigate nasal passageways can be helpful. Over the counter systems include Neti Pot and Nasopure. Use with distilled water. -Salt water gargles and throat lozenges can be helpful for sore throat. -To prevent spreading the illness to others cover your sneeze and cough into your arm and not your hand, don't allow others to eat or drink with the same utensils or glass, and use hand polishing machine tender before touching people or common surfaces. -Apply warm packs to face to facilitate sinus drainage. - Use cool mist humidifier in bedroom at night. -Increase fluid consumption and Rest. -Follow up with your PCP in 1 week or sooner if symptoms worsen or are not improving as planned. -If you experience any shortness of breath, increased dizziness, chest pain, or high fever >101,go to the Emergency Room. Patient Education: Disposition Treatment plan including expectations, follow up, and return precautions discussed with patient/parent, verbalizes understanding. Medication dosage, use, and potential adverse reactions discussed with patient/parent. Advised to follow up with PCP if symptoms do not resolve as expected or sooner if condition worsens. Signs/symptoms warranting ER evaluation reviewed. Patient and/or guardian was given an opportunity to ask questions, questions answered. Mary Reynoso NP [facility] [employer] documented in this encounter Plan of Treatment Not on file documented as of this encounter Visit Diagnoses Diagnosis Acute non-recurrent maxillary sinusitis- Primary documented in this encounter Care Teams Farm General Manager Relationship Specialty Start Date End Date Korey Randolph MD PCP - General Internal Medicine 05/23/17 documented as of this encounter
--- OUTSIDE RECORDS SUMMARY | 2024-04-07 05:36 | XMS_ITS | Encounter Summary ---
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 Does message need to be routed? No * Telephone Encounter - Gina Aguilar RN - 07/14/2023 3:12 PM CDT JESSICA Powell from [facility] called to request most recent EKG with tracings. Patient is scheduled forsurgery on 05/18/2023. Faxed as requested to [phone] the EKG from 05/30/2023 documented in this encounter Plan of Treatment Not on file documented as of this encounter Visit Diagnoses Not on filedocumented in this encounter Care Teams Regional Service Manager Relationship Specialty Start Date End Date Korey Randolph MD PCP - General Internal Medicine 05/23/17 documented as of this encounter
--- OUTSIDE RECORDS SUMMARY | 2024-04-07 05:36 | XMS_ITS | Encounter Summary ---
Author Organization [facility] Healthcare Address [address] [place] [address] Care Team Providers Care Regulatory Compliance Coordinator Name Role Phone Korey Randolph MD Primary Care Provider Reason for Visit * Reason Comments Multiple Medical Complaints * Auth/Cert (Routine) Specialty Diagnoses / Procedures Referred By Contac t Referred To Contact Diagnoses Dizziness Chest pain, unspecified type Procedures na Referral ID Status Reason Start Date Expiration Date Visits Re quested Visits Authorized [id number] 1 1 Encounter Details Date Type Department Care Team (Late st Contact Info) Description 05/30/2023 7:10 PM RIPRAP PLACER - 05/31/2023 11:35 AM [facility] Emergency [facility] Acute Medicine [address] [place] [address] Bisi Silva MD [address] [place] [address] Korey Randolph MD [address] [facility] [address] [address] Chest pain, unspecified type (Primary Dx); Dizziness Discharge Disposition: Discharge to home or self [...] on file Legal Sex Female 11:27 PM [facility]RAP [facility]ACER Gender Identity Female 08/18/2019 3:36 PM CDT Sexual Orientation Straight 08/18/2019 3: 35 PM CDT documented as of this encounter Last Filed Vital Signs Vital Sign Reading Time Taken Comments Blood Pressure 128/86 05/31/2023 7:47 AM [facility]RAP PLACER Pulse 102 05/31/2023 7:47 AM [facility]ACER Temperature 35.8 ??C (96.5 ??F) 05/31/2023 7:47 AM CS T Respiratory Rate 18 05/31/2023 7:47 AM RIPRAP PLACER Oxygen Saturation 100% 05/31/2023 7:47 AM [facility]RAP PLACER Inhaled Oxygen Concentration - - Weight 65.2 kg (143 lb 11.8 oz) 05/31/2023 5:00 AM [facility]RAP PLACER Height 134.6 cm (4' 5 ) 05/31/2023 2:06 AM RIPRAP PLACER Body Mass Index 35.98 05/31/2023 2:06 AM RIPRAP PLACER documented in this encounter Discharge Summaries * Korey Randolph MD - 05/31/2023 11:35 AM CST Inpatient Discharge Summary BRIEF OVERVIEW Admitting Provider: Bisi Silva MD Discharge Provider: No att. providers found Primary Care Physician at Discharge: Korey Randolph MD [phone] Admission Date: 05/30/2023 Discharge Date: 05/31/2023 Admission Location: [facility] Problems/Diagnoses: Principal Problem: Benign paroxysmal positional vertigo present on admission Resolved Problems: No resolved hospital problems. DETAILS OF HOSPITAL STAY Presenting Problem/History of Present Illness: The patient is seen in the emergency room with vertigo and was put upstairs to make sure she had noother serious problems Hospital Course: Once in the hospital the patient was watched on telemetry no arrhythmias her 1st cardiac enzymes were fine and her symptoms actually improved somewhat we are going to have Physical therapy see her for vestibular therapy but we both agreed that there was no need for to stay in the hospital Active Issues Requiring Follow-up: Vestibular therapy with physical therapy as our next hope for this recurring problem Test Results Pending at Discharge: Operative Procedures Performed: Other Procedures: Not Pertinent Test Results: Please refer to epic lab summary for full details Discharge Details Physical Exam at Discharge: Discharge Condition: good Pulse: 102 Resp: 18 BP: 128/86 Temp: (!) 35.8 ??C (96.5 ??F) Weight: 65.2 kg (143 lb 11.8 oz) Pertinent Exam Findings at Discharge: Normal vitals normal neurological exam normal cardiovascular exam Discharge Disposition: Discharge to home or self care Code Status at Discharge: Full code blue Discharge Instructions: I will see the patient next week in my office hopefully we can arrange for some physical therapy vestibular training Discharge Medications: Current Medications TAKE these medications atorvastatin 10 mg tablet Take 1 tablet (10 mg total) by mouth daily Commonly known as: LIPITOR cholecalciferol 1,000 unit capsule Take by mouth daily Commonly known as: VITAMIN D-3 LORazepam 0.5 mg tablet Take 1 tablet (0.5 mg total) by mouth every 8 (eight) hours as needed (dizziness) Commonly known as: ATIVAN meclizine 25 mg tablet TAKE 1 TABLET(25 MG) BY MOUTH THREE TIMES DAILY NEEDED FOR DIZZINESS Commonly known as: ANTIVERT multivitamin with minerals tablet Take 1 tablet by mouth daily NON FORMULARY (FOR INPATIENT USE) Take 10 mg by mouth daily Prevagen pantoprazole DR 40 mg EC tablet TAKE 1 TABLET(40 MG) BY MOUTH TWICE DAILY Commonly known as: PROTONIX teriparatide 20 mcg/dose (600mcg/2.4mL) injection Inject 0.08 mL (20 mcg total) under the skin daily Commonly known as: FORTEO triamcinolone 0.1 % cream Apply topically 3 (three) times a day for 10 days Commonly known as: KENALOG vitamin E 400 unit capsule Take 1 capsule (400 Units total) by mouth daily Commonly known as: AQUASOL E Outpatient Follow-Up: Future Appointments Date Time Provider Department Center 06/07/2023 1:15 PM [facility]ab [facility] Main 06/07/2023 2:15 PM [facility] CC 15 MIN FAST TRACK MBC Cncr Inf [facility] Main 07/03/2023 2:00 PM Korey Randolph MD PCP IM 220 PC 01/15/2024 10:30 AM Truman Khalil MD ENDO [facility] Specialty AP PLACER documented in this encounter Discharge Instructions * Attachments The following attachments cannot be sent through Care Everywhere. * Lorazepam (By mouth) (Mauritian) documented in this encounter Medications at Time of Discharge cholecalciferol (VITAMIN D-3) 1,000 unit capsule Take by mouth daily meclizine (ANTIVERT) 25 mg tablet TAKE 1 TABLET(25 MG) BY MOUTH THREE TIMES DAILY NEEDED FOR DIZZINESS 90 tablet 3 02/10/2023 multivitamin with minerals tablet Take 1 tablet by mouth daily NON FORMULARY, FOR INPATIENT USE, Take 10 mg by mouth daily Prevagen triamcinolone (KENALOG) 0.1 % creamIndications:C ontact dermatitis, unspecified contact dermatitis type, unspecified trigger Apply topically 3 (three) times a day for 10 days 80 g 01/15/2023 vitamin E 400 unit capsule Take 1 capsule (400 Units total) by mouth daily atorvastatin (LIPITOR) 10 mg tablet Take 1 tablet (10 mg total) by mouth daily 90 tablet 3 10/11/2022 4 LORazepam (ATIVAN) 0.5 mg tablet Take 1 tablet (0.5 mg total) by mouth every 8 (eight) hours as needed (dizziness) 15 tablet 1 05/31/[address] (PROTONIX) 40 mg EC tablet TAKE 1 TABLET(40 MG) BY MOUTH TWICE DAILY 180 tablet 3 06/27/2022 4 teriparatide (FORTEO) 20 mcg/dose (600mcg/2.4mL) injectionIndicatio ns:Other osteoporosis 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 pathological fracture Inject 0.08 mL (20 mcg total) under the skin daily 2.4 mL 3 09/21/2022 4 documented as of this encounter Ordered Prescriptions Prescription Sig Dispense Quantity Refills Last Filled Start Date End Date LORazepam (ATIVAN) 0.5 mg tablet Take 1 tablet (0.5 mg total) by mouth every 8 (eight) hours as needed (dizziness) 15 tablet 1 05/31/2023 06/06/2023 documented in this encounter Discharge Disposition Disposition Code Departure Means Destination Comment s Discharge to home or self care documented in this encounter Progress Notes * Vivi Milian, PT - 05/31/2023 10:28 AM CST Physical Therapy INITIAL EVALUATION PATIENT'S NAME:Meghana Dueñas :1940 AGE:83 y.o. TIME IN:1029 TIME OUT:1048 CURRENT DIAGNOSIS AND HOSPITAL COURSE:dizziness with chest pain with h/o dizziness and low back pain Patient Active Problem List Diagnosis Gastroesophageal reflux disease without esophagitis Hyperlipidemia Esophageal stricture Macular degeneration, dry Vitamin D deficiency Spondylosis of lumbar region without myelopathy or radiculopathy Intermittent epigastric abdominal pain LLQ pain Stricture and stenosis of esophagus Gastroesophageal reflux disease Abdominal pain, epigastric Small bowel obstruction, partial (CMS/HCC) (HCC) Spondylolisthesis at L4-L5 level Other osteoporosis 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 pathological fracture Chest pain, unspecified type Past Medical History: Diagnosis Date Arthritis Bronchitis GERD (gastroesophageal reflux disease) Hyperlipidemia Osteoporosis Pneumonia Sleeping difficulties Vertigo Past Surgical History: Procedure Laterality Date APPENDECTOMY BLADDER NECK SUSPENSION CATARACT EXTRACTION CHOLECYSTECTOMY COLONOSCOPY 01/17/2014 ESOPHAGOGASTRODUODENOSCOPY 07/11/2022 HYSTERECTOMY TUBAL LIGATION UPPER GASTROINTESTINAL ENDOSCOPY SUBJECTIVE LIVES WITH: alone [facility] small steps to enter with handrails PRIOR LEVEL OF FUNCTION: independent with bathing, dressing, cooking and cleaning. Patient still drives EQUIPMENT OWNED: no DME EQUIPMENT USED: no DME FALL HISTORY: reports no h/o falls SOCIAL SUPPORTS: Gentleman friend in the same complex PATIENT/FAMILY GOAL: NA MENTAL STATUS/ORIENTATION: Alert and oriented x4 OBJECTIVE PRECAUTIONS: fall risk APPEARANCE/POSTURE: supine in bed with no lines attached PAIN: Pre-therapy pain level: 0/10 Pain location: NA Pain intervention: NA Post-therapy pain level/response to intervention: 0/10 DIZZINESS: rates it at rest 3-4/10 in sitting. Reports it is worse when standing up too fast. Reports she was dizzy but states that she tried to remedy it with a head turn to the right that made it worse with a room spinning complaint. Reports she is back to her normal baseline level. Has had dizziness chronically for years. Has macular degeneration. Has left lazy eye chronic. Reports 0/10 dizziness after walking with head turns to the left and right. LE ASSESSMENTS: Right LE ROM: WFL Left LE ROM: WFL Right LE strength: WFL Left LE strength: WFL Coordination: not tested Tone: WFL MOBILITY: Bed mobility: supine to sit with independence Transfers: sit to stand with independence Ambulation: Distance: 100' Assistive device: no assistive device Level of assist: independent Deviations: no deviations noted Stairs: Number of steps: 3 Assistive device: one hand hold Level of assist: independent with assistive device Balance/Special Tests: Static sitting balance: good Dynamic sitting balance: good Static standing balance: good Dynamic standing balance: good 6 CLICK: Basic Mobility - 6 Click How much difficulty does the patient have: Turning over in bed: None How much difficulty does the patient currently have: Sitting down and standing up from a chair witharms?: None How much difficulty does the patient have: Moving from lying on back to sitting on the side of the bed?: None How much difficulty does the patient have: Moving to and from a bed to a chair including wheelchair?: None How much help does the patient currently need: Walk in hospital room?: None How much help from another person does the patient currently need: Climbing 3-5 steps with a railing?: None Total 6 Click Score (range 6-24): 24 EXERCISES:NA APPEARANCE/POSTURE (end of session): sitting on edge of bed with no lines attached EDUCATION: patient educated on plan of care RESPONSE TO EDUCATION: verbalizes understanding ASSESSMENT PROBLEM LIST: no deficits noted. Patient reports that she is at baseline BARRIERS TO LEARNING: NA BARRIERS TO DISCHARGE: NA REHAB POTENTIAL/PROGNOSIS: good PLAN RECOMMENDATIONS: home with intremittent assist, recommend out patient PT if vertigo continues TREATMENT PLAN/INTERVENTIONS: initial discharge, independent with gait FREQUENCY: one time visit EQUIPMENT RECOMMENDATIONS: NA Refer to multi-disciplinary care plan section for PT specific goals. Multi-Disciplinary Problems (from Physical Therapy) Active Problems Not on file If this is the last note, please consider this the discharge summary. AP PLACER documented in this encounter H&P Notes * Korey Randolph MD - 05/31/2023 11:35 AM CST General Medicine History and Physical Subjective Patient is a 83 y.o. female with chief complaint of dizziness. HPI: The patient is an 83-year-old white female who has past history of episodic vertigo and hassome meclizine at home for that but on the day of admission she developed severe vertigo with some vomiting and she felt so bad she came to the emergency room and they decided to put her in the hospital to check out her heart and other issues she denies any chest pain or palpitations or lightheadedness no double vision Past Medical History: Diagnosis Date Arthritis Bronchitis GERD (gastroesophageal reflux disease) Hyperlipidemia Osteoporosis Pneumonia Sleeping difficulties Vertigo Past Surgical History: Procedure Laterality Date APPENDECTOMY BLADDER NECK SUSPENSION CATARACT EXTRACTION CHOLECYSTECTOMY COLONOSCOPY 01/17/2014 ESOPHAGOGASTRODUODENOSCOPY 07/11/2022 HYSTERECTOMY TUBAL LIGATION UPPER GASTROINTESTINAL ENDOSCOPY No medications prior to admission. No Known Allergies Social History Tobacco Use Smoking status: Never Smokeless tobacco: Never Substance and Sexual Activity Drug use: Never Sexual activity: Not Currently Partners: Male control/protection: Tubal Ligation Alcohol Use: Not At Risk (05/31/2023) AUDIT-C Frequency of Alcohol Consumption: Never Average Number of Drinks: Patient does not drink Frequency of Binge Drinking: Never Family History Problem Relation Age of Onset Alzheimer's disease Mother Osteoporosis Mother Arthritis Father Heart attack Father Heart disease Father Cancer Maternal Grandfather Review of Systems Constitutional: Negative for chills, diaphoresis, fatigue, fever and unexpected weight change. HENT: Negative for congestion, hearing loss, postnasal drip, sneezing, sore throat, tinnitus and trouble swallowing. Eyes: Negative for visual disturbance. Respiratory: Negative for cough, shortness of breath and wheezing. Cardiovascular: Negative for chest pain, palpitations and leg swelling. Gastrointestinal: Positive for vomiting. Negative for abdominal pain, anal bleeding, blood in stool, constipation, diarrhea and nausea. Endocrine: Negative for polydipsia, polyphagia and polyuria. Genitourinary: Negative for dysuria, frequency, hematuria and urgency. Nocturia negative Musculoskeletal: Negative for arthralgias, back pain, joint swelling and myalgias. Skin: Negative for rash. Allergic/Immunologic: Negative for environmental allergies and food allergies. Neurological: Positive for dizziness. Negative for tremors, syncope and headaches. Hematological: Negative for adenopathy. Does not bruise/bleed easily. Psychiatric/Behavioral: Negative for dysphoric mood and sleep disturbance. Objective Vitals: Arrival Vitals Temp 05/30/23 1031 36.9 ??C (98.5 ??F) Pulse 05/30/23 1031 75 Resp 05/30/23 1031 16 BP 05/30/23 1031 144/65 SpO2 05/30/23 1031 98 % Temp src 05/30/23 1031 Temporal Heart Rate Source 05/30/23 1444 Monitor Patient Position 05/30/23 1928 Lying BP Location 05/30/23 1444 Right arm FiO2 (%) -- 24hr Min/Max: Temp Min: 35.8 ??C (96.5 ??F) Max: 36.4 ??C (97.6 ??F) Pulse Min: 65 Max: 125 BP Min: 91/71 Max: 162/92 Resp Min: 18 Max: 18 SpO2 Min: 97 % Max: 100 % Most Recent : Vitals: 05/31/23 0747 BP: 128/86 Pulse: 102 Resp: 18 Temp: (!) 35.8 ??C (96.5 ??F) SpO2: 100% Physical exam: Physical Exam Vitals and nursing note reviewed. Constitutional: Appearance: Normal appearance. She is well-developed and normal weight. Comments: Vital signs are okay afebrile HENT: Head: Normocephalic and atraumatic. Right Ear: [...] Tendon Reflexes: Reflexes are normal and symmetric. Comments: No nystagmus today nonfocal neurological exam Psychiatric: Mood and Affect: Mood normal. Lab/Radiology/Diagnostic Review: Recent Results (from the past 24 hour(s)) Troponin T high-sensitivity 2-hour Collection Time: 05/30/23 2:50 PM Result Value Ref Range Trop T hs 7 <=14 ng/L Trop T hs delta 0 ng/L Trop T hs interp Insignificant Influenza A/B, RSV, and COVID-19 PCR Nasopharyngeal Collection Time: 05/30/23 8:00 PM Specimen: Nasopharyngeal Result Value Ref Range COVID-19 RNA Negative Negative Influenza A RNA Negative Negative Influenza B RNA Negative Negative RSV RNA Negative Negative D-dimer, quantitative Collection Time: 05/30/23 8:00 PM Result Value Ref Range D-Dimer 247 <=499 ng/mL FEU Basic metabolic panel Collection Time: 05/31/23 7:29 AM Result Value Ref Range Sodium 142 135 - 145 mmol/L Potassium, pl 4.0 3.3 - 4.9 mmol/L Chloride 110 97 - 110 mmol/L CO2 23 22 - 32 mmol/L Anion gap 9 2 - 15 mmol/L BUN 22 6 - 25 mg/dL Creatinine 0.69 0.60 - 1.10 mg/dL Glucose 87 70 - 199 mg/dL Calcium 9.4 8.5 - 10.3 mg/dL Lipid panel Collection Time: 05/31/23 7:29 AM Result Value Ref Range Cholesterol 150 30 - 199 mg/dL Triglycerides 86 <=149 mg/dL HDL 45 >=40 mg/dL LDL, calculated 88 <=129 mg/dL Non-HDL Cholesterol 105 mg/dL Chol/HDL ratio 3 CBC without differential Collection Time: 05/31/23 7:29 AM Result Value Ref Range WBC 5.6 3.8 - 9.9 K/cumm Hgb 13.3 11.9 - 15.5 g/dL Hct 40.4 35.6 - 45.5 % Plt 160 150 - 400 K/cumm MPV 11.5 9.1 - 12.3 fL RBC 4.21 3.90 - 5.20 M/cumm MCV 96.0 81.3 - 96.4 fL MCH 31.6 27.1 - 33.3 pg MCHC 32.9 32.3 - 35.7 g/dL RDW CV 13.3 11.1 - 14.9 % RDW SD 47.3 35.7 - 48.1 fL NRBC abs 0.00 0.00 - 0.01 K/cumm Protime-INR Collection Time: 05/31/23 7:29 AM Result Value Ref Range PT 13.2 10.3 - 13.7 sec INR 1.16 0.90 - 1.20 Troponin T high-sensitivity series (baseline, 2hr, 4hr, 6hr) Collection Time: 05/31/23 7:29 AM Result Value Ref Range Trop T hs 8 <=14 ng/L eGFR Collection Time: 05/31/23 7:29 AM Result Value Ref Range eGFR 87 mL/min/1.73 m2 Troponin T high-sensitivity 2-hour Collection Time: 05/31/23 9:16 AM Result Value Ref Range Trop T hs 7 <=14 ng/L Trop T hs delta -1 ng/L Trop T hs interp Insignificant CT Head WO Contrast Result Date: 05/30/2023 Narrative: EXAM DESCRIPTION: CT HEAD WO CONTRAST REASON FOR STUDY: Dizziness, persistent/recurrent,cardiac or vascular cause suspected c/o dizziness since Monday. Pt also reports headache and right ear pain. Pt states she gets dizzy when standing up. TECHNIQUE: Axial images acquired through the brain without intravenous contrast. Images stored on PACS. Automated exposure control was used as a dose optimization technique for this examination. COMPARISON: None FINDINGS: BRAIN: No mass, hemorrhage, or recent infarct. Normal white matter. Volume within normal limits for age. VASCULAR: No dense vessel or obvious aneurysm. EXTRA-AXIAL SPACES: No mass or fluid collection. ORBITS/GLOBES: Unremarkable. SOFT TISSUES: Unremarkable. BONES/SINUSES: No fracture or lesion. Paranasal sinuses and other skullbase airspaces are clear. IMPRESSION: No acute abnormality identified. THIS IS AN ELECTRONICALLYVERIFIED FINAL REPORT 05/30/2023 8:37 PM - Electronically signed by Ej Bertrand M.D. AR: CLAUDINE Report ID: [id number] Reading Location: [id number] ECG 12 lead Result Date: 05/30/2023 Narrative: Vent Rate: 74 bpm RR Interval: 807 msec GA Interval: 168 msec QRS Duration: 91 msec QT Interval: 364 msec QTC Interval: 391 msec P-R-T [place]: 41 - 60 - 42 degrees IMPRESSION: SINUS RHYTHM NORMAL ECG No previous EKG for comparison Electronically Signed By: Dr Truman Nicole XR Chest Pa Lateral 2 Views Result Date: 05/30/2023 Narrative: EXAM DESCRIPTION: XR CHEST PA LATERAL 2 VIEWS REASON FOR STUDY: Chest pain. TECHNIQUE: Frontal radiographic view(s) of the chest. COMPARISON: 01/16/2019. FINDINGS: LUNGS: No focal opacity,pleural effusion, or pneumothorax. HEART/MEDIASTINUM: Cardiac silhouette normal in size. Mediastinal and hilar contours appear normal. LINES/TUBES: None. BONES: No acute osseous abnormality. IMPRESSION: No acute cardiopulmonary abnormality. THIS IS AN ELECTRONICALLY VERIFIED FINAL REPORT 05/30/2023 10:58 AM - Electronically signed by Lino Valencia M.D. CH: Report ID: [id number] Reading Location: [id number] Assessment /Plan Principal Problem: Benign paroxysmal positional vertigo Classic vertigo syndrome in a lady with a past history of same my plan is to get physical therapy to do vestibular therapy I am going to add some lorazepam to see if we can reduce her symptomatology along with the meclizine but I see no reason to keep her in the hospital or do any further cardiac evaluation Chest pain, unspecified type No sign of heart problems I spent a moderate amount of medical decision-making today interviewing and examining the patient reviewing her records writing orders and preparing this note AP PLACER documented in this encounter Nursing Notes * Sadiq Beard RN - 05/31/2023 11:33 AM CST Pt Dcd to home, Dc instructions previously reviewed, no questions. Pt taken to socket puller in by [facility] for ride. AP PLACER documented in this encounter ED Notes * Jami Mcgovern PA - 05/30/2023 9:08 PM CST CHIEF COMPLAINT: Chief Complaint Patient presents with Multiple Medical Complaints HPI 10:21 PM Meghana Dueñas is a 83 y.o. female presenting to the ED c/o dizziness. Patient states herdizziness started on Monday. She describes it as a sensation as the room spinning. Patient reports associated headache and right ear pain. Patient has had vertigo in the past and took her home medication which she does not remember the name of for her symptoms with no relief. Today she developed some chest pressure with radiation through to her back. Denies any shortness of breath, diaphoresis, nausea, or vomiting. History provided by patient PCP: Korey Randolph MD PAST MEDICAL HISTORY Past Medical History: Diagnosis Date Arthritis Bronchitis GERD (gastroesophageal reflux disease) Hyperlipidemia Osteoporosis Pneumonia Sleeping difficulties Vertigo PAST SURGICAL HISTORY Past Surgical History: Procedure Laterality Date APPENDECTOMY BLADDER NECK SUSPENSION CATARACT EXTRACTION CHOLECYSTECTOMY COLONOSCOPY 01/17/2014 ESOPHAGOGASTRODUODENOSCOPY 07/11/2022 HYSTERECTOMY TUBAL LIGATION UPPER GASTROINTESTINAL ENDOSCOPY FAMILY HISTORY Family History Problem Relation Age of Onset Alzheimer's disease Mother Osteoporosis Mother Arthritis Father Heart attack Father Heart disease Father Cancer Maternal Grandfather MEDICATIONS GIVEN IN THE ED Medications aspirin chewable tablet 324 mg (324 mg oral Not Given 05/30/231919) acetaminophen (TYLENOL) tablet 650 mg (has no administration in time range) oxyCODONE (ROXICODONE) tablet 5 mg (has no administration in time range) ondansetron ODT (ZOFRAN-ODT) disintegrating tablet 4 mg (has no administration in time range) Or ondansetron (ZOFRAN) injection 4 mg (has no administration in time range) enoxaparin (LOVENOX) syringe 40 mg (has no administration in time range) meclizine (ANTIVERT) tablet 25 mg (25 mg oral Given 05/30/231955) diazePAM (VALIUM) tablet 2 mg (2 mg oral Given 05/30/232117) CURRENT HOME MEDICATIONS Current Facility-Administered Medications: acetaminophen (TYLENOL) tablet 650 mg, 650 mg, oral, Q4H PRN, Jami Mcgovern PA aspirin chewable tablet 324 mg, 324 mg, oral, Once, Bisi Silva MD enoxaparin (LOVENOX) syringe 40 mg, 40 mg, subcutaneous, Daily-2100, Jami Mcgovern PA ondansetron ODT (ZOFRAN-ODT) disintegrating tablet 4 mg, 4 mg, oral, Q6H PRN OR ondansetron (ZOFRAN) injection 4 mg, 4 mg, intravenous, Q6H PRN, Jami Mcgovern PA oxyCODONE (ROXICODONE) tablet 5 mg, 5 mg, oral, Q4H PRN, Jami Mcgovern PA Current Outpatient Medications: atorvastatin (LIPITOR) 10 mg [...] TWICE DAILY, Disp: 180 tablet, Rfl: 3 predniSONE (DELTASONE) 10 mg tablet, Take 4 tablets days 1 & 2, take 3 tablets days 3 & 4, take 2 tablets days 5 & 6, take 1 tablet days 7-10 (Patient not taking: Reported on 02/09/2023), Disp: 22 tablet, Rfl: 0 teriparatide (FORTEO) 20 mcg/dose (600mcg/2.4mL) injection, Inject 0.08 mL (20 mcg total) under theskin daily, Disp: 2.4 mL, Rfl: 3 triamcinolone (KENALOG) 0.1 % cream, Apply topically 3 (three) times a day for 10 days, Disp: 80 g,Rfl: 0 vitamin E 400 unit capsule, Take 1 capsule (400 Units total) by mouth daily, Disp: , Rfl: ALLERGIES No Known Allergies SOCIAL HISTORY Social History Tobacco Use Smoking status: Never Smokeless tobacco: Never Substance and Sexual Activity Drug use: Never Sexual activity: Not Currently Partners: Male control/protection: Tubal Ligation Alcohol Use: Not At Risk (08/25/2022) AUDIT-C Frequency of Alcohol Consumption: Never Average Number of Drinks: Patient does not drink Frequency of Binge Drinking: Never PHYSICAL EXAM TRIAGE VITAL SIGNS: ED Triage Vitals Temp Pulse Resp BP SpO2 05/30/23 1031 05/30/23 1031 05/30/23 1031 05/30/23 1031 05/30/23 1031 36.9 ??C (98.5 ??F) 75 16 144/65 98 % Temp src Heart Rate Source Patient Position BP Location FiO2 (%) 05/30/23 1031 05/30/23 1444 05/30/23 1928 05/30/23 1444 -- Temporal Monitor Lying Right arm Height Height Method Weight Weight Method 05/30/23 1031 05/30/23 1031 05/30/23 1031 05/30/23 1031 1.346 m (4' 5 ) Stated 63.5 kg (140 lb) Stated Physical Exam Vitals and nursing note reviewed. Constitutional: General: She is not in acute distress. Appearance: She is well-developed. HENT: Head: Normocephalic and atraumatic. Right Ear: External ear normal. Left Ear: External ear normal. Nose: Nose normal. Mouth/Throat: Mouth: Mucous membranes are moist. Eyes: Conjunctiva/sclera: Conjunctivae normal. Cardiovascular: Rate and Rhythm: Normal rate and regular rhythm. Pulmonary: Effort: Pulmonary effort is normal. No respiratory distress. Breath sounds: Normal breath sounds. Abdominal: General: Bowel sounds are normal. There is no distension. Palpations: Abdomen is soft. Tenderness: There is no abdominal tenderness. There is no guarding or rebound. Musculoskeletal: General: Normal range of motion. Cervical back: Neck supple. Skin: General: Skin is warm and dry. Neurological: General: No focal deficit present. Mental Status: She is alert. Psychiatric: Mood and Affect: Mood normal. Behavior: Behavior normal. LABS Labs Reviewed CBC WITH AUTO DIFFERENTIAL - Abnormal Result Value WBC 7.2 Hgb 13.5 Hct 41.5 Plt 167 MPV 12.1 RBC 4.26 MCV 97.4 (*) MCH 31.7 MCHC 32.5 RDW CV 13.4 RDW SD 47.8 NRBC abs 0.00 COMPREHENSIVE METABOLIC PANEL - Abnormal Sodium 143 Potassium, pl 4.7 Chloride 109 CO2 25 Anion gap 9 BUN 26 (*) Creatinine 0.70 Glucose 98 Calcium 10.0 Bilirubin, total <0.2 Protein, pl 6.7 Albumin 4.2 Alk phos 47 ALT 24 AST 17 INFLUENZA A/B, RSV, AND COVID-19 PCR COVID-19 RNA Negative Influenza A RNA Negative Influenza B RNA Negative RSV RNA Negative Narrative: Is the Patient experiencing symptoms consistent with COVID?->Yes TROPONIN T HIGH-SENSITIVITY SERIES (BASELINE, 2HR, 4HR, 6HR) Trop T hs 7 DIFFERENTIAL AUTO Neutrophil abs 4.3 Imm gran abs 0.1 Lymphocyte abs 2.0 Monocyte abs 0.6 Eosinophil abs 0.2 Basophil abs 0.1 Neutrophil pct 60.0 Imm gran pct 0.8 Lymphocyte pct 27.5 Monocyte pct 8.6 Eosinophil pct 2.4 Basophil pct 0.7 TROPONIN T HIGH-SENSITIVITY 2-HOUR Trop T hs 7 Trop T hs delta 0 Trop T hs interp Insignificant EGFR eGFR 86 D-DIMER, QUANTITATIVE D-Dimer [address] Head WO Contrast Result Date: 05/30/2023 Narrative: EXAM DESCRIPTION: CT HEAD WO CONTRAST REASON FOR STUDY: Dizziness, persistent/recurrent,cardiac or vascular cause suspected c/o dizziness since Monday. Pt also reports headache and right ear pain. Pt states she gets dizzy when standing up. TECHNIQUE: Axial images acquired through the brain without intravenous contrast. Images stored on PACS. Automated exposure control was used as a dose optimization technique for this examination. COMPARISON: None FINDINGS: BRAIN: No mass, hemorrhage, or recent infarct. Normal white matter. Volume within normal limits for age. VASCULAR: No dense vessel or obvious aneurysm. EXTRA-AXIAL SPACES: No mass or fluid collection. ORBITS/GLOBES: Unremarkable. SOFT TISSUES: Unremarkable. BONES/SINUSES: No fracture or lesion. Paranasal sinuses and other skullbase airspaces are clear. IMPRESSION: No acute abnormality identified. THIS IS AN ELECTRONICALLYVERIFIED FINAL REPORT 05/30/2023 8:37 PM - Electronically signed by Ej Bertrand M.D. AR: CLAUDINE Report ID: [id number] Reading Location: [id number] ECG 12 lead Result Date: 05/30/2023 Narrative: Vent Rate: 74 bpm RR Interval: 807 msec GA Interval: 168 msec QRS Duration: 91 msec QT Interval: 364 msec QTC Interval: 391 msec P-R-T [place]: 41 - 60 - 42 degrees IMPRESSION: SINUS RHYTHM NORMAL ECG No previous EKG for comparison Electronically Signed By: Dr Truman Nicole XR Chest Pa Lateral 2 Views Result Date: 05/30/2023 Narrative: EXAM DESCRIPTION: XR CHEST PA LATERAL 2 VIEWS REASON FOR STUDY: Chest pain. TECHNIQUE: Frontal radiographic view(s) of the chest. COMPARISON: 01/16/2019. FINDINGS: LUNGS: No focal opacity,pleural effusion, or pneumothorax. HEART/MEDIASTINUM: Cardiac silhouette normal in size. Mediastinal and hilar contours appear normal. LINES/TUBES: None. BONES: No acute osseous abnormality. IMPRESSION: No acute cardiopulmonary abnormality. THIS IS AN ELECTRONICALLY VERIFIED FINAL REPORT 05/30/2023 10:58 AM - Electronically signed by Lino Valencia M.D. CH: SUAD Report ID: [id number] Reading Location: [id number] EKG EKG: IMPRESSION: SINUS RHYTHM NORMAL ECG No previous EKG for comparison ED COURSE/MEDICAL DECISION MAKING Differential diagnosis included but not limited to vertigo, stroke, ACS, pulmonary embolism, musculoskeletal chest wall pain, GERD I discussed all diagnostic test results with the hospitalist who accepted patient for admission. Patient is agreeable with admission plans. All questions answered. Patient's medical records were reviewed. ED Course as of 05/30/232220 Time: 05/30 1941 Value: XR Chest Pa Lateral 2 Views Comment: IMPRESSION: No acute cardiopulmonary abnormality. By: Jami Mcgovern PA Time: 05/30 2048 Value: CT Head WO Contrast Comment: IMPRESSION: No acute abnormality identified. By: Jami Mcgovern PA Time: 05/30 2151 Comment: Patient states she is feeling less dizzy but feels off when she stands. By: Jami Mcgovern PA Time: 05/30 2210 Comment: Discussed case with the hospitalist who accepted patient for admission By: Jami Mcgovern PA Procedures FINAL IMPRESSION Chest pain, unspecified type Dizziness DISPOSITION: Admit This examination was transcribed using the [employer] voice recognition system without human reservoir engineering advisor. In an effort to expedite patient care, this report has not been adjusted for typographical, grammatical, and syntax by a trained medical referral coordinator. Jami Mcgovern PA 05/30/232220 Cosigned by Dennis Pittman MD at 06/03/2023 11:03 AM RIPRAP PLACER AP PLACER AP PLACER * Gisella Hogan, JESSICA - 05/30/2023 10:30 AM CST Pt to ED for c/o dizziness since Monday. Today pt noticed chest and upper back pain. Pt also reports headache and right ear pain. Pt states she gets dizzy when standing up. Pt denies any cardiac hx. AP PLACER documented in this encounter Miscellaneous Notes * Plan of Care - Sadiq Beard RN - 05/31/2023 11:35 AM CST Problem: Discharge Planning Goal: Understanding discharge needs will improve Outcome: Adequate for Discharge Problem: Skin/Tissue Integrity Goal: Skin integrity remains intact Outcome: Adequate for Discharge AP PLACER * Initial Assessments - Lee Ann Carson RN - 05/31/2023 10:25 AM CST CM Initial Assessment Interview Note Information Obtained From: Patient (05/31/23 115) Admission Source: home Impression: chest pain Plan Includes: evaluatioan Primary Source of Transportation: Does the patient need discharge transport arranged?: No (05/31/23 115) Health Insurance Coverage: [facility] Medicare Prescription Coverage: yes Pharmacy: [id number] - [place], [place] - [facility] [address] [place] [place] [address] [place] [id number] Primary Care Provider: Korey Randolph MD Prior to Admission: Functional Status: Independent with ADLs Primary Caregiver: Self Support System: Friends/neighbors, Family members, Children Home Care Services: No Durable Medical Equipment: None Living Arrangements: Alone Type of Residence: Private residence Steps in home?: Yes, Outside of home Number of steps outside: 2 steps Medication management: Independent (05/31/23 0208) SDOH: Transportation: Financial Resource: Housing: Utilities: Social Connections: Food Insecurity: Patient expects to be Discharged to: Private residence, (05/31/23 1156) Additional Information: Patient lives at home alone in a condo. She is independent with mobility and doesn't use any mobility devices. Able to drive. She has support from a grandson, daughter and a gentleman friend. Discharge plan is to return to home and her gentleman friend will be providing transportation. Patient's Identified Problem/Goal Problem: Ensure acute medical needs are met and that patient has a safe discharge plan. Goal: Secure a discharge plan that patient/family are agreeable with and ensure patient has continuum of care. Case management will follow for discharge planning and send referrals as needed. Lee Ann Carson RN AP PLACER * Plan of Care - Ge Perez RN - 05/31/2023 4:00 AM CST Problem: Discharge Planning Goal: Understanding discharge needs will improve 05/31/2023 0400 by Ge Perez RN Outcome: Progressing Flowsheets (Taken 05/31/2023 0359) Understanding of discharge needs will improve: Collaborate with case management interdisciplinary team 05/31/2023 035 by Ge Perez RN Outcome: Progressing Flowsheets (Taken 05/31/2023 035) Understanding of discharge needs will improve: Collaborate with case management interdisciplinary team Problem: Cardiovascular Goal: Cardiovascular status will improve Outcome: Progressing Flowsheets (Taken 05/31/2023 0400) Cardiovascular status will improve: Monitor for signs and symptoms of chest pain Problem: Skin/Tissue Integrity Goal: Skin integrity remains intact Outcome: Progressing Flowsheets (Taken 05/31/2023 0400) Skin integrity remains intact: Assess and document risk factors for pressure injury development Monitor for areas of redness and/or skin breakdown Goals: Clinical Goals for the Shift: vital signs stable, free from falls or injuries, maintain comfort andsafety Stenciling Machine Tender Patient Centered Goal for Treatment: return to baseline activity Summary: vital signs stable and free from falls or injuries. Pt is A&Ox4, on room air, and calls out appropriately. No complaints of chest pain but pt does have some complaints of dizziness whilesitting up. AP PLACER documented in this encounter Plan of Treatment Not on file documented as of this encounter Procedures Procedure Name Priority Date/Time Associated Diagnosis Comments TROPONIN T HIGH-SENSITIVITY 2-HOUR Timed 05/31/2023 9:16 AM RIPRAP PLACER TROPONIN T HIGH-SENSITIVITY SERIES (BASELINE, 2HR, 4HR, 6HR) Routine 05/31/2023 7:29 AM RIPRAP PLACER EGFR Routine 05/31/2023 7:29 AM RIPRAP PLACER PROTIME-INR Routine 05/31/2023 7:29 AM RIPRAP PLACER CBC WITHOUT DIFFERENTIAL Routine 05/31/2023 7:29 AM RIPRAP PLACER LIPID PANEL Routine 05/31/2023 7:29 AM RIPRAP PLACER BASIC METABOLIC PANEL Routine 05/31/2023 7:[address] HEAD WO CONTRAST ED 05/30/2023 8 :10 PM RIPRAP PLACER INFLUENZA A/B, RSV, AND COVID-19 PCR Routine 05/30/2023 8:00 PM RIPRAP PLACER D-DIMER, QUANTITATIVE STAT 05/30/2023 8:00 PM RIPRAP PLACER TROPONIN T HIGH-SENSITIVITY 2-HOUR Timed 05/30/2023 2:50 PM RIPRAP PLACER TROPONIN T HIGH-SENSITIVITY SERIES (BASELINE, 2HR, 4HR, 6HR) STAT 05/30/2023 11:51 AM RIPRAP PLACER EGFR STAT 05/30/2023 11:51 AM RIPRAP PLACER DIFFERENTIAL AUTO STAT 05/30/2023 11: 51 AM RIPRAP PLACER CBC WITH AUTO DIFFERENTIAL STAT 05/30/2023 11:51 AM RIPRAP PLACER COMPREHENSIVE METABOLIC PANEL STAT 05/30/2023 11:51 AM RIPRAP PLACER XR CHEST PA LATERAL 2 VIEWS ED 05/30/2023 10:48 AM RIPRAP PLACER ECG 12-LEAD STAT 05/30/2023 10:36 AM RIPRAP PLACER documented in this encounter Results * Troponin T high-sensitivity 2-hour (05/31/2023 9:16 AM RIPRAP PLACER) Trop T hs 7 <=14 ng/L [facility] ([place]) Comment: Interpretive Data For further hscTnT resources including the diagnostic algorithm and an aid in interpretation, copy and paste this link: https://nrl.testcatalog.org/show/hsTrop Current Interpretive Data last revised 2020. Trop T hs delta -1 ng/L [facility] ([place]) Trop T hs interp Insignificant [facility] ([place]) Blood 05/31/2023 9:16 AM RIPRAP PLACER 05/31/2023 9:23 AM RIPRAP PLACER us Bisi Silva MD LAB BLOOD ORDERABLES Final Resul t [facility] ([place]) 1 [facility] Department [place] [address] * eGFR (05/31/2023 7:29 AM RIPRAP PLACER) eGFR 87 mL/min/1. 73 m2 [facility] ([place]) Comment: Interpretive Data Reference Interval Normal ?>/= [...] interpretive data was last reviewed 2021. Blood 05/31/2023 7:29 AM RIPRAP PLACER 05/31/2023 7:31 AM RIPRAP PLACER Bisi Silva MD LAB BLOOD ORDERABLES Final Resul t [facility] ([place]) 1 [facility] Department [place] [address] * Basic metabolic panel (05/31/2023 7:29 AM RIPRAP PLACER) Sodium 142 135 - 145 mmol/L [facility] ([place]) Potassium, pl 4.0 3.3 - 4.9 mmol/L [facility] ([place]) Chloride 110 97 - 110 mmol/L [facility] ([place]) CO2 23 22 - 32 mmol/L [facility] ([place]) Anion gap 9 2 - 15 mmol/L [facility] ([place]) BUN 22 6 - 25 mg/dL [facility] ([place]) Creatinine 0.69 0.60 - 1.10 mg/dL [facility] ([place]) Glucose 87 70 - 199 mg/dL [facility] ([place]) Comment: Interpretive Data Fasting glucose >/= 126 [...] interpretive data was last revised 2022. Calcium 9.4 8.5 - 10.3 mg/dL [facility] ([place]) Blood 05/31/2023 7:29 AM RIPRAP PLACER 05/31/2023 7:31 AM RIPRAP PLACER us Bisi Silva MD LAB BLOOD ORDERABLES Final Resul t Performing Organization Address [facility] Co de Phone Number [facility]N [facility] ([place]) 1 [facility] [place] [address] * Troponin T high-sensitivity series (baseline, 2hr, 4hr, 6hr) (05/31/2023 7:29 AM RIPRAP PLACER) Trop T hs 8 <=14 ng/L [facility] ([place]) Comment: Interpretive Data For further hscTnT resources including the diagnostic algorithm and an aid in interpretation, copy and paste this link: https://nrl.testcatalog.org/show/hsTrop Current Interpretive Data last revised 2020. Blood 05/31/2023 7:29 AM RIPRAP PLACER 05/31/2023 7:31 AM RIPRAP PLACER us Bisi Silva MD LAB BLOOD ORDERABLES Final Resul t Performing Organization Address [facility] de Phone Number [facility] ([place]) 1 [facility] [place] [address] * Protime-INR (05/31/2023 7:29 AM RIPRAP PLACER) PT 13.2 10.3 - 13.7 sec [facility] ([place]) INR 1.16 0.90 - 1.20 [facility] ([place]) Comment: Interpretive data Oral anticoagulant therapeutic ranges: Venous thromboembolism prophylaxis or treatment: 2.0-3.0 CARDIOLOGY Standard range: 2.0-3.0 High-intensity range: 2.5-3.5 Refer to indication-specific guidelines for appropriate target ranges for prosthetic heart valve replacement. Current interpretive data was last revised on 2019. Blood 05/31/2023 7:29 AM RIPRAP PLACER 05/31/2023 7:31 AM RIPRAP PLACER us Bisi Silva MD LAB BLOOD ORDERABLES Final Resul t Performing Organization Address [facility] Co de Phone Number [facility] ([place]) 1 [facility] Department [place] [address] * CBC without differential (05/31/2023 7:29 AM RIPRAP PLACER) WBC 5.6 3.8 - 9.9 K/cumm [facility] ([place]) Hgb 13.3 11.9 - 15.5 g/dL [facility] ([place]) Hct 40.4 35.6 - 45.5 % [facility] ([place]) Plt 160 150 - 400 K/cumm [facility] ([place]) MPV 11.5 9.1 - 12.3 fL [facility] ([place]) RBC 4.21 3.90 - 5.20 M/cumm [facility] ([place]) MCV 96.0 81.3 - 96.4 fL [facility] ([place]) MCH 31.6 27.1 - 33.3 pg [facility] ([place]) MCHC 32.9 32.3 - 35.7 g/dL [facility] ([place]) RDW CV 13.3 11.1 - 14.9 % [facility] ([place]) RDW SD 47.3 35.7 - 48.1 fL [facility] ([place]) NRBC abs 0.00 0.00 - 0.01 K/cumm [facility] ([place]) Blood 05/31/2023 7:29 AM RIPRAP PLACER 05/31/2023 7:31 AM RIPRAP PLACER us Bisi Silva MD LAB BLOOD ORDERABLES Final Resul t [facility] ([place]) 1 [facility] Department [place] [address] * Lipid panel (05/31/2023 7:29 AM RIPRAP PLACER) Cholesterol 150 30 - 199 mg/dL [facility] ([place]) Comment: Interpretive Data Ages < or = 19 years ??Acceptable: ? <170 mg/dL ??Borderline high: ??170-199 mg/dL ??High: ? >or= 200 mg/dL Ages > or = 20 years ??Desirable: ?<200 mg/dL ??Borderline high: ??200-239 mg/dL ??High: ? >or= 240 mg/dL Literature References: 1. Expert Panel on Integrated Guidelines for Cardiovascular Health and Risk Reduction in Children and Adolescents. Pediatrics 2011;128:S213 2. NCEP Expert Panel. Circulation 2004;110:227 Current Interpretive Data was last revised on 2017. Triglycerides 86 <=149 mg/dL [facility] ([place]) Comment: Interpretive Data Ages < or = 9 years ??Acceptable: ? <75 mg/dL ??Borderline high: ??75-99 mg/dL ??High: ? >or= 100 mg/dL Ages 10 to 20 years ??Acceptable: ? <90 mg/dL ??Borderline high: ??90-129 mg/dL ??High: ? >or= 130 mg/dL Ages > or = 20 years ??Desirable: ?<150 mg/dL ??Borderline high: ??150-199 mg/dL ??High: ? 200-499 mg/dL ?Very high: ?? >or= 499 mg/dL Literature References: 1. Expert Panel on Integrated Guidelines for Cardiovascular Health and Risk Reduction in Children and Adolescents. Pediatrics 2011;128:S213 2. NCEP Expert Panel. Circulation 2004;110:227 Current Interpretive Data was last revised on 2017. HDL 45 >=40 mg/dL [facility] REYNOLDS) Comment: Interpretive Data Ages < or = 19 years ??Acceptable: ? >45 mg/dL ??Borderline low: ?? 40-45 mg/dL ??Low: ? <40 mg/dL Ages > or = 20 years ??Desirable: ?>or= 60 mg/dL ??Low: ? <40 mg/dL Literature References: 1. Expert Panel on Integrated Guidelines for Cardiovascular Health and Risk Reduction in Children and Adolescents. Pediatrics 2011;128:S213 2. NCEP Expert Panel. Circulation 2004;110:227 Current Interpretive Data was last revised on 2017. LDL, calculated 88 <=129 mg/dL [facility] ([place]) Comment: Interpretive Data Ages < or = 19 years ??Acceptable: ? <110 mg/dL ??Borderline high: ??110-129 mg/dL ??High: ?>or= 130 mg/dL Ages > or = 20 years ??Optimal: ? <100 mg/dL ??Near optimal: ?100-129 mg/dL ??Borderline high: ?? 130-159 mg/dL ??High: ?>160 mg/dL Literature References: 1. Expert Panel on Integrated Guidelines for Cardiovascular Health and Risk Reduction in Children and Adolescents. Pediatrics 2011;128:S213 2. NCEP Expert Panel. Circulation 2004;110:227 Current Interpretive Data was last revised on 2017. Non-HDL Cholesterol 105 mg/dL [facility] ([place]) Comment: Interpretive Data Ages < or = 19 years ??Acceptable: ?<120 mg/dL ??Borderline high: ??120-144 mg/dL ??High: ?>145 mg/dL Ages > or = 20 years ??When triglycerides are >200 mg/dL, Non-HDL cholesterol is a secondary target of ? therapy with treatment goals that are 30 mg/dL greater than the LDL cholesterol target. ? Literature References: 1. Expert Panel on Integrated Guidelines for Cardiovascular Health and Risk Reduction in Children and Adolescents. Pediatrics 2011;128:S213 2. NCEP Expert Panel. Circulation 2004;110:227 Current Interpretive Data was last revised on 2017. Chol/HDL ratio 3 WILSON [facility] ([place]) Blood 05/31/2023 7:29 AM RIPRAP PLACER 05/31/2023 7:31 AM RIPRAP PLACER us Bisi Silva MD LAB BLOOD ORDERABLES Final Resul t [facility] [place]) [address] [facility] [place] [address] * CT Head WO Contrast (05/30/2023 8:10 PM RIPRAP PLACER) Anatomical Region Laterality Modality Head and Neck N/A Computed Tomogra phy 05/30/2023 8:36 PM RIPRAP PLACER Narrative 05/30/2023 8:37 PM RIPRAP PLACER EXAM DESCRIPTION: CT HEAD WO CONTRAST REASON FOR STUDY: Dizziness, persistent/recurrent, cardiac or vascular cause suspected ?? c/o dizziness since Monday. Pt also reports headache and right ear pain. Pt states she gets dizzy when standing up. ? TECHNIQUE: Axial images acquired through the brain without intravenous contrast. ??Images stored on PACS. ?? Automated exposure control was used as a dose optimization technique for this examination. COMPARISON: None FINDINGS: BRAIN: ??No mass, hemorrhage, or recent infarct. ?? Normal white matter. ?? Volume within normal limits for age. VASCULAR: ??No dense vessel or obvious aneurysm. EXTRA-AXIAL SPACES: ??No mass or fluid collection. ORBITS/GLOBES: Unremarkable. SOFT TISSUES: ??Unremarkable. ?? BONES/SINUSES: ??No fracture or lesion. ?? Paranasal sinuses and other skullbase airspaces are clear. IMPRESSION: No acute abnormality identified. ?? THIS IS AN ELECTRONICALLY VERIFIED FINAL REPORT 05/30/2023 8:37 PM - Electronically signed by ??Ej Bertrand M.D. AR: CLAUDINE D: ??05/30/2023 8:37 PM T: ??05/30/2023 8:37 PM Report ID: [id number] Reading Location: ??[id number] Procedure Note Ej Bertrand MD - 05/30/2023 EXAM DESCRIPTION: CT HEAD WO CONTRAST REASON FOR STUDY: Dizziness, persistent/recurrent, cardiac or vascularcause suspected c/o dizziness since Monday. Pt also reports headache and right ear pain.Pt states she gets dizzy when standing up. TECHNIQUE: Axial images acquired through the brain without intravenous contrast. Images stored on PACS. Automated exposure control was used asa dose optimization technique for this examination. COMPARISON: None FINDINGS: BRAIN: No mass, hemorrhage, or recent infarct. Normal white matter. Volume within normal limits for age. VASCULAR: No dense vessel or obvious aneurysm. EXTRA-AXIAL SPACES: No mass or fluid collection. ORBITS/GLOBES: Unremarkable. SOFT TISSUES: Unremarkable. BONES/SINUSES: No fracture or lesion. Paranasal sinuses and otherskullbase airspaces are clear. IMPRESSION: No acute abnormality identified. THIS IS AN ELECTRONICALLY VERIFIED FINAL REPORT 05/30/2023 8:37 PM - Electronically signed by Ej Bertrand M.D. AR: CLAUDINE Report ID: [id number] Reading Location: [id number] Jami FISCHER IMG CT PROCEDURES Final R esult * D-dimer, quantitative (05/30/2023 8:00 PM RIPRAP PLACER) D-Dimer 247 <=499 ng/mL FEU [facility] ([place]) Comment: Interpretive data FDA approved the D-dimer, in conjunction with a low or moderate pretest probability score, to exclude venous thromboembolic events (VTE) (PE and DVT) in outpatients when the D-dimer result is < 500 ng/ml FEU. ?? Evidence supports using an age-adjusted D-dimer cut-off for outpatients older than 50 (age x 10) to improve specificity without sacrificing sensitivity. Example: age 68, VTE cut-off 680 ng/ml FEU. References; Schouten HT et al. Brit Med J. 2013;346:f2492. Kaela et al. Annals Int Med. 2015;163:701-11. Current interpretive data was last revised on 2019. Blood 05/30/2023 8:00 PM RIPRAP PLACER 05/30/2023 8:01 PM RIPRAP PLACER Jami FISCHER LAB BLOOD ORDERABLES Mireya l Result [facility] REYNOLDS) 1 [facility] Department [place] [address] * Influenza A/B, RSV, and COVID-19 PCR Nasopharyngeal (05/30/2023 8:00 PM RIPRAP PLACER) Pathologist [facility] COVID-19 RNA Negative Negative [facility] ([place]) Influenza A RNA Negative Negative [facility] ([place]) Influenza B RNA Negative Negative [facility] ([place]) RSV RNA Negative Negative [facility] ([place]) Comment: Interpretive data: Testing performed by [facility]. This test is performed using the [employer] Xpert Xpress CoV-2/Flu/RSV plus assay. This is a multiplex, real- time reverse transcriptase PCR assay intended for the qualitative detection of nucleic acid from SARS-CoV-2, influenza A, influenza B, and respiratory syncytial virus. This assay has been cleared by the [place] Food and Drug administration. The performance characteristics have been verified by the [facility]. ?? Results must be considered in the clinical context, and a negative result does not rule out infection. Interpretive Data last revised 2023 Nasopharyngeal 05/30/2023 8: 00 PM RIPRAP PLACER 05/30/2023 8:02 PM RIPRAP PLACER Narrative [facility]) - 05/30/2023 8:45 PM RIPRAP PLACER Is the Patient experiencing symptoms consistent with COVID?->Yes Jami FISCHER LAB MICROBIOLOGY - GENERA L ORDERABLES Final Result [facility]) 1 [facility] Department [place] [address] * Troponin T high-sensitivity 2-hour (05/30/2023 2:50 PM RIPRAP PLACER) Pathologist [facility] Trop T hs 7 <=14 ng/L [facility] ([place]) Comment: Interpretive Data For further hscTnT resources including the diagnostic algorithm and an aid in interpretation, copy and paste this link: https://nrl.testcatalog.org/show/hsTrop Current Interpretive Data last revised 2020. Trop T hs delta 0 ng/L [facility] ([place]) Trop T hs interp Insignificant [facility] ([place]) Blood 05/30/2023 2:50 PM RIPRAP PLACER 05/30/2023 3:12 PM RIPRAP PLACER us Ej Garland MD LAB BLOOD ORDERABLE S Final Result [facility] (JULI) 1 [facility] Department [place] [address] * eGFR (05/30/2023 11:51 AM RIPRAP PLACER) eGFR 86 mL/min/1. 73 m2 [facility] (JULI) Comment: Interpretive Data Reference Interval Normal ?>/= [...] interpretive data was last reviewed 2021. Blood 05/30/2023 11:5 1 AM RIPRAP PLACER 05/30/2023 12:07 PM RIPRAP PLACER us Bisi Silva MD LAB BLOOD ORDERABLES Final Resul t CARYN TSANG (CONCORD) 1 [facility] Department [place] [address] * Differential, auto (05/30/2023 11:51 AM RIPRAP PLACER) Neutrophil abs 4.3 1.5 - 6.5 K/cumm [facility] (JULI) Imm gran abs 0.1 0.0 - 0.1 K/cumm [facility] (JULI) Lymphocyte abs 2.0 0.8 - 3.3 K/cumm [facility] (JULI) Monocyte abs 0.6 0.2 - 0.8 K/cumm [facility] (JULI) Eosinophil abs 0.2 0.0 - 0.5 K/cumm [facility] (JULI) Basophil abs 0.1 0.0 - 0.1 K/cumm [facility] (JULI) Neutrophil pct 60.0 % [facility] (JULI) Comment: Interpretive Data Percent cell count reference ranges are not reported, since discordance with absolute values may lead to misinterpretation of CBC data. Current Interpretive Data was last revised on 2017. Imm gran pct 0.8 % [facility] (JULI) Comment: Interpretive Data Percent cell count reference ranges are not reported, since discordance with absolute values may lead to misinterpretation of CBC data. Current Interpretive Data was last revised on 2017. Lymphocyte pct 27.5 % [facility] (JULI) Comment: Interpretive Data Percent cell count reference ranges are not reported, since discordance with absolute values may lead to misinterpretation of CBC data. Current Interpretive Data was last revised on 2017. Monocyte pct 8.6 % [facility] (JULI) Comment: Interpretive Data Percent cell count reference ranges are not reported, since discordance with absolute values may lead to misinterpretation of CBC data. Current Interpretive Data was last revised on 2017. Eosinophil pct 2.4 % [facility] (JULI) Comment: Interpretive Data Percent cell count reference ranges are not reported, since discordance with absolute values may lead to misinterpretation of CBC data. Current Interpretive Data was last revised on 2017. Basophil pct 0.7 % [facility] (JULI) Comment: Interpretive Data Percent cell count reference ranges are not reported, since discordance with absolute values may lead to misinterpretation of CBC data. Current Interpretive Data was last revised on 2017. Blood 05/30/2023 11:5 1 AM RIPRAP PLACER 05/30/2023 12:07 PM RIPRAP PLACER Bisi Silva MD LAB BLOOD ORDERABLES Final Resul t Performing Organization Address City/[facility] Co de Phone Number CARYN TSANG (JULI) 1 [facility] [place] [address] * Troponin T high-sensitivity series (baseline, 2hr, 4hr, 6hr) (05/30/2023 11:51 AM RIPRAP PLACER) Trop T hs 7 <=14 ng/L [facility] (JULI) Comment: Interpretive Data For further hscTnT resources including the diagnostic algorithm and an aid in interpretation, copy and paste this link: https://nrl.testcatalog.org/show/hsTrop Current Interpretive Data last revised 2020. Blood 05/30/2023 11:5 1 AM RIPRAP PLACER 05/30/2023 12:07 PM RIPRAP PLACER Bisi Silva MD LAB BLOOD ORDERABLES Final Resul t Performing Organization Address [facility] Co de Phone Number CARYN TSANG (JULI) 1 [facility] [place] [address] * (ABNORMAL) Comprehensive metabolic panel (05/30/2023 11:51 AM RIPRAP PLACER) Sodium 143 135 - 145 mmol/L [facility] (JULI) Potassium, pl 4.7 3.3 - 4.9 mmol/L [facility] (JULI) Chloride 109 97 - 110 mmol/L [facility] (JULI) CO2 25 22 - 32 mmol/L [facility] (JULI) Anion gap 9 2 - 15 mmol/L [facility] (JULI) BUN 26(H) 6 - 25 mg/dL [facility] (JULI) Creatinine 0.70 0.60 - 1.10 mg/dL [facility] (JULI) Glucose 98 70 - 199 mg/dL [facility] (JULI) Comment: Interpretive Data Fasting glucose >/= 126 [...] classification and Diagnosis of Diabetes Diabetes Care 2021; 46: S19-S40. Current interpretive data was last revised 2022. Calcium 10.0 8.5 - 10.3 mg/dL [facility] (JULI) Bilirubin, total <0.2 0.1 - 1.2 mg/dL [facility] (JULI) Protein, pl 6.7 6.5 - 8.5 g/dL [facility] (JULI) Albumin 4.2 3.5 - 5.0 g/dL [facility] (JULI) Alk phos 47 40 - 130 Units/L [facility] (JULI) ALT 24 7 - 45 Units/L [facility] (JULI) AST 17 10 - 45 Units/L [facility] (JULI) Comment:Slightly Hemolyzed S pecimen Blood 05/30/2023 11:5 1 AM RIPRAP PLACER 05/30/2023 12:07 PM RIPRAP PLACER us Bisi Silva MD LAB BLOOD ORDERABLES Final Resul t [facility] (JULI) 1 [facility] Department of Laboratories [place], [place] [id number] * (ABNORMAL) CBC with auto differential (05/30/2023 11:51 AM RIPRAP PLACER) WBC 7.2 3.8 - 9.9 K/cumm [facility] (JULI) Hgb 13.5 11.9 - 15.5 g/dL [facility] (JULI) Hct 41.5 35.6 - 45.5 % [facility] (JULI) Plt 167 150 - 400 K/cumm [facility] (JULI) MPV 12.1 9.1 - 12.3 fL [facility] (JULI) RBC 4.26 3.90 - 5.20 M/cumm CARYN TSANG (JULI) MCV 97.4(H) 81.3 - 96.4 fL [facility] (JULI) MCH 31.7 27.1 - 33.3 pg [facility] (JULI) MCHC 32.5 32.3 - 35.7 g/dL [facility] (JULI) RDW CV 13.4 11.1 - 14.9 % [facility] (JULI) RDW SD 47.8 35.7 - 48.1 fL [facility] (JULI) NRBC abs 0.00 0.00 - 0.01 K/cumm [facility] (JULI) Blood (Blood, Venous) 05/30/2023 11:51 AM RIPRAP PLACER 05/30/2023 12:07 PM RIPRAP PLACER us Bisi Silva MD LAB BLOOD ORDERABLES Final Resul t CARYN TSANG (JULI) 1 [facility] Department [place] [address] * XR Chest Pa Lateral 2 Views (05/30/2023 10:48 AM RIPRAP PLACER) Anatomical Region Laterality Modality Body, Chest N/A Computed Radiogr aphy 05/30/2023 10:5 8 AM RIPRAP PLACER Narrative 05/30/2023 10:58 AM RIPRAP PLACER EXAM DESCRIPTION: XR CHEST PA LATERAL 2 VIEWS REASON FOR STUDY: Chest pain. TECHNIQUE: Frontal ??radiographic view(s) of the chest. COMPARISON: 01/16/2019. FINDINGS: LUNGS: ??No focal opacity, pleural effusion, or pneumothorax. ?? HEART/MEDIASTINUM: ??Cardiac silhouette normal in size. Mediastinal and hilar contours appear normal. LINES/TUBES: ??None. BONES: ??No acute osseous abnormality. IMPRESSION: No acute cardiopulmonary abnormality. THIS IS AN ELECTRONICALLY VERIFIED FINAL REPORT 05/30/2023 10:58 AM - Electronically signed by ??Lino Valencia M.D. CH: SUAD D: ??05/30/2023 10:58 AM T: ??05/30/2023 10:58 AM Report ID: [id number] Reading Location: ??[id number] Procedure Note Lino Valencia Jr., MD - 05/30/2023 EXAM DESCRIPTION: XR CHEST PA LATERAL 2 VIEWS REASON FOR STUDY: Chest pain. TECHNIQUE: Frontal radiographic view(s) of the chest. COMPARISON: 01/16/2019. FINDINGS: LUNGS: No focal opacity, pleural effusion, or pneumothorax. HEART/MEDIASTINUM: Cardiac silhouette normal in size. Mediastinal andhilar contours appear normal. LINES/TUBES: None. BONES: No acute osseous abnormality. IMPRESSION: No acute cardiopulmonary abnormality. THIS IS AN ELECTRONICALLY VERIFIED FINAL REPORT 05/30/2023 10:58 AM - Electronically signed by Lino Valencia M.D. CH: SUAD Report ID: [id number] Reading Location: [place] [address] Bisi Silva MD IMG XR PROCEDURES Final Result * ECG 12 lead (05/30/2023 10:36 AM RIPRAP PLACER) 05/30/2023 10:3 6 AM RIPRAP PLACER Narrative [facility] - 05/30/2023 2:00 PM RIPRAP PLACER Vent Rate: 74 bpm RR Interval: 807 msec GA Interval: 168 msec QRS Duration: 91 msec QT Interval: 364 msec QTC Interval: 391 msec P-R-T [place]: 41 - 60 - 42 degrees IMPRESSION: SINUS RHYTHM NORMAL ECG No previous EKG for comparison Electronically Signed By: Dr Truman Nicole Bisi Silva MD ECG ORDERABLES Final Result [facility] documented in this encounter Visit Diagnoses Diagnosis Chest pain, unspecified type- Primary Chest pain, unspecified type Dizziness Dizziness and giddiness documented in this encounter Admitting Diagnoses Diagnosis Chest pain, unspecified type documented in this encounter Administered Medications Inactive Administered Medications - up to 3 most recent administrations Medication Order MAR Action Action Date Dose Rate Site acetaminophen (TYLENOL) tablet 650 mg 650 mg, oral, Every 4 hours PRN, 1st line for pain, Starting on Mon05/30/23 at 2219, Indications: PainIndications:Pain Carrier Fluids for Secondary Infusion - 0.9% Sodium Chloride 30 mL, intravenous, As needed, For priming tubing and/or flushing, Starting on Mon05/31/23 at 0336, 0-250 ml/hr to flush line after IV infusions when no maintenance IV ordered. Infuse 30mL at the same rate as the secondary infusion. Run as primary IV, not intended for KVO. diazePAM (VALIUM) tablet 2 mg 2 mg, oral, Once, On Mon05/30/23 at 2108, For 1 dose Given 05/30/2023 9:18 PM RIPRAP PLACER 2 mg enoxaparin (LOVENOX) syringe 40 mg 40 mg, subcutaneous, Daily (for enoxaparin), First dose on Mon05/30/23 at 2221, Indications: Deep Vein Thrombosis PreventionIndications:Deep Vein Thrombosis Prevention meclizine (ANTIVERT) tablet 25 mg 25 mg, oral, Once, On Mon05/30/23 at 1947, For 1 dose Given 05/30/2023 7:56 PM RIPRAP PLACER 25 mg ondansetron (ZOFRAN) injection 4 mg 4 mg, intravenous, Administer over 2 Minutes, Every 6 hours PRN, nausea, vomiting, if not tolerating PO, Starting on Mon05/31/23 at 0337, Indications: Nausea and VomitingIndications:Nausea and Vomiting ondansetron ODT (ZOFRAN-ODT) disintegrating tablet 4 mg 4 mg, oral, Every 6 hours PRN, nausea, vomiting, Starting on Mon05/31/23 at 0337, Indications: Nausea and VomitingIndications:Nausea and Vomiting oxyCODONE (ROXICODONE) tablet 5 mg 5 mg, oral, Every 4 hours PRN, 2nd line for pain, Starting on Mon05/30/23 at 2219, May administer 1 hour after 1st line agent for uncontrolled or increasing pain. , Indications: PainIndications:Pain pantoprazole DR (PROTONIX) extended release tablet 40 mg 40 mg, oral, Daily, First dose on Mon05/31/23 at 0900, Do not crush, chew, cut, dissolve, open or otherwise manipulate tablet/capsule., Indications: Treatment of Non-Bleeding Gastric DisorderIndications:Treatment of Non-Bleeding Gastric Disorder Given 05/31/2023 8:39 AM RIPRAP PLACER 40 mg sodium chloride 0.9% flush 0.5-20 mL 0.5-20 mL, intra-catheter, Every 8 hours scheduled, First dose on Mon05/31/23 at 0600, Flush volume based on line type and size. sodium chloride 0.9% flush 0.5-20 mL 0.5-20 mL, intra-catheter, As needed, line care, Starting on Mon05/31/23 at 0336, Flush volume based on line type and size. Flush before and after each use. documented in this encounter Discontinued Medications Medication Sig Discontinue Reason Start Date End Da te predniSONE (DELTASONE) 10 mg tabletIndications:Contac t dermatitis, unspecified contact dermatitis type, unspecified trigger Take 4 tablets days 1 & 2, take 3 tablets days 3 & 4, take 2 tablets days 5 & 6, take 1 tablet days 7-10 Therapy completed 01/15/2023 05/31/2023 documented as of this encounter Active and Recently Administered Medications Times are shown in RIPRAP PLACER. Scheduled Medication Order 05/29/2023 05/30/2023 05/31/2023 aspirin enteric coated tablet 81 mg 81 mg, oral, Daily, First dose on Mon06/01/23 at 0900, Do not crush, chew, cut, dissolve, open or otherwise manipulate tablet/capsule., Indications: myocardial infarction prevention atorvastatin (LIPITOR) tablet 10 mg 10 mg, oral, Nightly, First dose on Mon05/31/23 at 2100 diazePAM (VALIUM) tablet 2 mg (COMPLETED) 2 mg, oral, Once, On Mon05/30/23 at 210, For 1 dose 2117 (Given - Provider: Janine Rooney, JESSICA) enoxaparin (LOVENOX) syringe 40 mg 40 mg, subcutaneous, Daily (for enoxaparin), First dose on Mon05/30/23 at 222, Indications: Deep Vein Thrombosis Prevention 2220 (Due) meclizine (ANTIVERT) tablet 25 mg (COMPLETED) 25 mg, oral, Once, On Mon05/30/23 at 1947, For 1 dose 1955 (Given - Provider: Janine Rooney, JESSICA) pantoprazole DR (PROTONIX) extended release tablet 40 mg 40 mg, oral, Daily, First dose on Mon05/31/23 at 0900, Do not crush, chew, cut, dissolve, open or otherwise manipulate tablet/capsule., Indications: Treatment of Non-Bleeding Gastric Disorder 838 (Given - Provid er: Sadiq Beard RN) sodium chloride 0.9% flush 0.5-20 mL(Linked Group 1) 0.5-20 mL, intra-catheter, Every 8 hours scheduled, First dose on Mon05/31/23 at 0600, Flush volume based on line type and size. 06 (Not Given - Provider: Ge Perez RN - Reason: Other - Comment: flush recently given) PRN Medication Order 05/29/2023 05/30/2023 05/31/2023 acetaminophen (TYLENOL) tablet 650 mg 650 mg, oral, Every 4 hours PRN, 1st line for pain, Starting on Mon05/30/23 at 2219, Indications: Pain Carrier Fluids for Secondary Infusion - 0.9% Sodium Chloride(Linked Group 1) 30 mL, intravenous, As needed, For priming tubing and/or flushing, Starting on Mon05/31/23 at 0336, 0-250 ml/hr to flush line after IV infusions when no maintenance IV ordered. Infuse 30mL at the same rate as the secondary infusion. Run as primary IV, not intended for KVO. docusate sodium (COLACE) capsule 100 mg 100 mg, oral, 2 times daily PRN, constipation, Starting on Mon05/31/23 at 0337, Indications: constipation meclizine (ANTIVERT) tablet 25 mg 25 mg, oral, 3 times daily PRN, dizziness, Starting on Mon05/31/23 at 0338 nitroglycerin (NITROSTAT) sublingual tablet 0.4 mg 0.4 mg, sublingual, Every 5 min PRN, chest pain, Starting on Mon05/31/23 at 0336, For 3 doses, Notify MD and obtain EKG if no relief after 3 doses or angina recurs. HOLD and notify MD if SBP less than 90 mmHg. , Indications: Angina ondansetron (ZOFRAN) injection 4 mg(Linked Group 2) 4 mg, intravenous, Administer over 2 Minutes, Every 6 hours PRN, nausea, vomiting, if not tolerating PO, Starting on Mon05/31/23 at 0337, Indications: Nausea and Vomiting ondansetron ODT (ZOFRAN-ODT) disintegrating tablet 4 mg(Linked Group 2) 4 mg, oral, Every 6 hours PRN, nausea, vomiting, Starting on Mon05/31/23 at 0337, Indications: Nausea and Vomiting oxyCODONE (ROXICODONE) tablet 5 mg 5 mg, oral, Every 4 hours PRN, 2nd line for pain, Starting on Mon05/30/23 at 2219, May administer 1 hour after 1st line agent for uncontrolled or increasing pain. , Indications: Pain sodium chloride 0.9% flush 0.5-20 mL(Linked Group 1) 0.5-20 mL, intra-catheter, As needed, line care, Starting on Mon05/31/23 at 0336, Flush volume based on line type and size. Flush before and after each use. Linked Groups Order Group 1: Saline lock IV (CANCELED) Routine, Once (Routine), On Mon05/31/23 at 0337, For 1 occurrence And sodium chloride 0.9% flush 0.5-20 mLJump to med 0.5-20 mL, intra-catheter, Every 8 hours scheduled, First dose on Mon05/31/23 at 0600, Flush volume based on line type and size. And sodium chloride 0.9% flush 0.5-20 mLJump to med 0.5-20 mL, intra-catheter, As needed, line care, Starting on Mon05/31/23 at 0336, Flush volume based on line type and size. Flush before and after each use. And Carrier Fluids for Secondary Infusion - 0.9% Sodium ChlorideJump to med 30 mL, intravenous, As needed, For priming tubing and/or flushing, Starting on Mon05/31/23 at 0336, 0-250 ml/hr to flush line after IV infusions when no maintenance IV ordered. Infuse 30mL at the same rate as the secondary infusion. Run as primary IV, not intended for KVO. Group 2: ondansetron ODT (ZOFRAN-ODT) disintegrating tablet 4 mgJump to med 4 mg, oral, Every 6 hours PRN, nausea, vomiting, Starting on Mon05/31/23 at 0337, Indications: Nausea and Vomiting Or ondansetron (ZOFRAN) injection 4 mgJump to med 4 mg, intravenous, Administer over 2 Minutes, Every 6 hours PRN, nausea, vomiting, if not tolerating PO, Starting on Mon05/31/23 at 0337, Indications: Nausea and Vomiting documented in this encounter Orders Medications Ordered That Jeferson ht Not Have Been Administered Count Last Ordered Date First Ordered Date aspirin enteric coated tablet 81 mg 1 05/31 atorvastatin (LIPITOR) tablet 10 mg 1 05/31 Carrier Fluids for Secondary Infusion - 0.9% Sodium Chloride 1 05/31/2023 docusate sodium (COLACE) capsule 100 mg 1 0 05/31/2023 meclizine (ANTIVERT) tablet 25 mg 1 024 nitroglycerin (NITROSTAT) bowden blingual tablet 0.4 mg 1 05/31/2023 ondansetron (ZOFRAN) injection 4 mg 2 05/3105/30/2023 ondansetron ODT (ZOFRAN-ODT) disintegrating tablet 4 mg 2 05/31/2023 05/30/2023 sodium chloride 0.9% flush 0.5-20 mL 2 05/05 acetaminophen (TYLENOL) tablet 650 mg 1 aspirin chewable tablet 324 mg 1 05/30/2023 enoxaparin (LOVENOX) syringe 40 mg 1 2023 oxyCODONE (ROXICODONE) tablet 5 mg 1 2023 sodium chloride 0.9% bolus 1,000 mL 1 05/30 Nursing Count Last Ordered Date First Orde red Date ACTIVITY 1 05/30/2023 MISCELLANEOUS NURSING CARE ORDER (SPECIFY) 1 05/30/2023 NOTIFY PROVIDER (SPECIFY) 05/30/2023 TELEMETRY MONITORING 1 05/30/2023 WEIGH PATIENT 1 05/30/2023 Isolation Count Last Ordered Date First Orde red Date INITIATE DROPLET ISOLATION 1 05/30/2023 IV Count Last Ordered Date First Orde red Date SALINE LOCK IV 1 05/30/2023 Admission Count Last Ordered Date First Orde red Date INITIATE OBSERVATION SERVICES 1 05/30/2023 Discharge Count Last Ordered Date First Orde red Date DISCHARGE PATIENT 1 05/31/2023 CORE MEASURES Count Last Ordered Date First Ord ered Date REASON FOR NO VTE PROPHYLAXIS AT ADMISSION 1 05/31/2023 documented in this encounter Additional Health Concerns Infection Onset Date Last Indicated Resolved Time COVID: Suspected 05/30/2023 05/30/2023 05/30/2023 8:46 PM RIPRAP PLACER documented as of this encounter Care Teams Regulatory Compliance Coordinator Relationship Specialty Start Date End Date Korey Randolph MD PCP - General Internal Medicine 05/23/17 documented as of this encounter
--- OUTSIDE RECORDS SUMMARY | 2024-04-07 05:36 | XMS_ITS | Encounter Summary ---
Author Organization [facility] Healthcare Address [address] [place] [address] Care Team Providers Care Service Station Equipment Mechanic Name Role Phone Korey Randolph MD Primary Care Provider Reason for Visit * Reason Comments Dizziness Dizziness, right ear pain, chest congestion and back pain, sx's started on Monday, she had sinus congestion but that has resolved, otc dayquil, nyquil and coricidin. Encounter Details Date Type Department Care Team (Late st Contact Info) Description 05/30/2023 9:15 AM WEIGHT TESTER Office Visit [facility] [place] [address] [place] [address] Mary English, HEATING ELEMENT BUILDER [address] [place] [address] Dizziness (Primary Dx); Chest discomfort Social History Tobacco Use Types Packs/Day Years [...] on file Legal Sex Female 11:27 PM WEIGHT TESTER Gender Identity Female 08/18/2019 3:36 PM CDT Sexual Orientation Straight 08/18/2019 3: 35 PM CDT documented as of this encounter Last Filed Vital Signs Vital Sign Reading Time Taken Comments Blood Pressure 104/76 05/30/2023 9:10 AM WEIGHT TESTER Pulse 74 05/30/2023 9:10 AM WEIGHT TESTER Temperature 36.3 ??C (97.3 ??F) 05/30/2023 9:10 AM CS T Respiratory Rate 18 05/30/2023 9:10 AM WEIGHT TESTER Oxygen Saturation 97% 05/30/2023 9:10 AM WEIGHT TESTER Inhaled Oxygen Concentration - - Weight 63.5 kg (140 lb) 05/30/2023 9:10 AM WEIGHT TESTER Height 134.6 cm (4' 5 ) 05/30/2023 9:10 AM WEIGHT TESTER Body Mass Index 35.04 05/30/2023 9:10 AM WEIGHT TESTER documented in this encounter Patient Instructions * Patient Instructions* Mary English NP - 05/30/2023 9:15 AM WEIGHT TESTER Go to ER for further evaluation of dizziness, chest and upper back discomfort. HT TESTER documented in this encounter Progress Notes * Mary English NP - 05/30/2023 9:15 AM CST Images from the original note were not included. Subjective/Objective Patient ID: Meghana Dueñas is a 83 y.o. female. Chief Complaint Dizziness (Dizziness, right ear pain, chest congestion and back pain, sx's started on Monday, she had sinus congestion but that has resolved, otc dayquil, nyquil and coricidin.) Pt presents to c/o right discomfort, fatigue for the past 4 days. She also had some mild intermittent dizziness over the weekend. The dizziness was the worst this morning and she also felt nauseous. When she is sitting or lying she feels like the room is spinning. When she is walking she feels like she is drifting to the right. She also has some chest discomfort and upper back discomfort today. She has had some runny nose and nasal congestion over the past few days as well but that is not bothering her today.. She also had some nausea. Chest and upper back pain today. She is drinking plenty of fluids. She has tried dayquil, nyquil and coricidin [id number] for her symptoms. She had d izziness like this before in the past and had a right ear infection. She denies shortness of breathor fever. Dizziness Review of Systems Neurological: Positive for dizziness. All systems reviewed and are negative or non contributory for this patient's presentation today other than as stated in the HPI. Physical Exam Vitals and nursing note reviewed. Constitutional: General: She is not in acute distress. Appearance: She is not ill-appearing or toxic-appearing. HENT: Head: Normocephalic. Right Ear: Ear canal and external ear normal. Tympanic membrane is retracted. Left Ear: Ear canal and external ear normal. A middle ear effusion is present. Nose: Mucosal edema present. Mouth/Throat: Pharynx: Oropharynx is clear. Eyes: Conjunctiva/sclera: Conjunctivae normal. Cardiovascular: Rate and Rhythm: Normal rate and regular rhythm. Heart sounds: Normal heart sounds. Pulmonary: Effort: Pulmonary effort is normal. No respiratory distress. Breath sounds: Normal breath sounds. No wheezing or rales. Chest: Chest wall: No tenderness. Abdominal: Palpations: Abdomen is soft. Musculoskeletal: Cervical back: Normal range of motion. Thoracic back: Normal. Skin: General: Skin is warm and dry. Neurological: General: No focal deficit present. Mental Status: She is alert and oriented to person, place, and time. Psychiatric: Mood and Affect: Mood normal. Behavior: Behavior normal. Thought Content: Thought content normal. Vitals: 05/30/23 0910 BP: 104/76 Pulse: 74 Resp: 18 Temp: 36.3 ??C (97.3 ??F) TempSrc: Temporal SpO2: 97% Weight: 63.5 kg (140 lb) Height: 134.6 cm (4' 5 ) Assessment/Plan Patient declines COVID or flu testing Patient advised due to chest and upper back discomfort as well as dizziness she will need to go to the ER for further evaluation. Explained to patient that we can not rule out cardiac or neurologicalcause of her symptoms. Patient verbalized understanding and states her friend will drive her there. Diagnoses and all orders for this visit: Dizziness (Primary) Chest discomfort No results found for this or any previous visit (from the past 24 hour(s)). Patient Education: Disposition Treatment plan including [...] opportunity to ask questions, questions answered. Mary English NP Cosigned by Alec Banks MD at 06/01/2023 7:53 AM WEIGHT TESTER HT TESTER HT TESTER documented in this encounter Plan of Treatment Not on file documented as of this encounter Visit Diagnoses Diagnosis Dizziness- Primary Dizziness and giddiness Chest discomfort Other chest pain documented in this encounter Care Teams Service Station Equipment Mechanic Relationship Specialty Start Date End Date Korey Randolph MD PCP - General Internal Medicine 05/23/17 documented as of this encounter
--- OUTSIDE RECORDS SUMMARY | 2024-04-07 05:36 | XMS_ITS | Referral Summary ---
Author Organization [facility] Address [address] [place] [address] Care Team Providers Care Cake Press Operator Helper Name Role Phone Korey Randolph MD Primary Care Provider Encounters Date Type Department Care Team Description 04/04/2024 Telephone [facility] Primary Care at [place] [address] [facility] [address] [place] [phone] Korey Randolph MD 03/31/2024 Orders Only [facility] [address] [place] [address] Korey Randolph MD 03/23/2024 11:15 AM RAIL SPECIALIST Office Visit [facility] Conven[place] [address] [place] [phone] Neha Shore NP Lower respiratory infection (Primary Dx); Acute cough 02/05/2024 Orders Only [facility] [address] [facility] [address] [place] [address] Truman Khalil MD 01/30/2024 Telephone [facility] Endocrinology at [facility] [address] [facility] [address] [address] Evelyn Hoyt LPN PA needed for Prolia to be done at [facility] 01/23/2024 Orders Only [facility] Endocrinology at [address] [address] Evelyn Hoyt LPN Other osteoporosis 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 pathological fracture (Primary Dx) 01/15/2024 10:30 AM CDT Office Visit [facility] Endocrinology at [address] [address] Truman Khalil MD Other osteoporosis 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 pathological fracture (Primary Dx); Mixed hyperlipidemia from Last 3 Months Allergies No known active allergies Medications vitamin [...] q.6 months. Will arrange for denosumab at [facility]. Continue vitamin-D 2000 units daily Calcium from [...] (8 mm versus 3 mm). She has pjjr-[id number]-fluj-right foraminal stenosis and severe lateral recess stenosis bilaterally at this level. We discussed that with her advanced age over 81 she is a increased risk complications and . She had been very active up until age 79 and 1 this i.Sec in the past. I will offer her surgery in the form of L4-5 laminectomy and fusion with instrumentation given her lack of response to extensive conservative treatment. We will perform this at our earliest convenience. Stricture and stenosis of esophagus 08/15/2019 Overview (08/15/2019): Added automatically from request for surgery [id number] Gastroesophageal reflux disease 08/15/2019 Overview (08/15/2019): Added automatically from request for surgery [id number] Abdominal pain, epigastric 08/15/2019 Overview (08/15/2019): Added automatically from request for surgery [id number] Intermittent epigastric abdominal pain 0 Assessment & [...] CBC to check for anemia, consultation to endoscopy registered nurse for EGD for further evaluation of ulceration [...] of gastritis. Recommending consultation for EGD at [facility] for further evaluation given acute concerns. 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 Z- pack, medrol pack, and proair use Q4hrs for next 3 days, then prn for indications provided in office after. CXR to r/o pneumonia considering hx. Increase fluids, robatussin for nocturnal cough and mucinex for daytime cough expectorant. RTC in 3 days for re-evaluation Immunizations Name Administration Dates Next Due Influenza, Quad, Adjuvantate d, Intramuscular 01/31/2023,01/01/2021,12/10/2019 Influenza, Quadrivalent, Hig h Dose, Preservative Free, Intrr 02/11/2022 Influenza, Trivalent, High D ose, Split, Preservative Free, Intramuscular 01/24/2019,12/27/2017,12/01/2016,12/12,12/10/2014,12/24/2013 Influenza, Trivalent, Preser vative Free, Intramuscular 12/10/2019 Moderna SARS-CoV-2 Monovalen t Vaccination (12+ YRS) 06/16/2020,05/13/2020 Pneumococcal Conjugate PCV 13 12/13/2015, 015 Pneumococcal Polysaccharide PPV23 02/26/2018 Social History Tobacco Use Types Packs/Day Years [...] on file Legal Sex Female 11:27 PM RAIL SPECIALIST Gender Identity Female 08/18/2019 3:36 PM CDT Sexual Orientation Straight 08/18/2019 3: 35 PM CDT Last Filed Vital Signs Vital Sign Reading Time Taken Comments Blood Pressure 116/62 03/23/2024 11:16 AM RAIL SPECIALIST Pulse 85 03/23/2024 11:16 AM RAIL SPECIALIST Temperature 36.2 ??C (97.2 ??F) 03/23/2024 1 1:16 AM RAIL SPECIALIST Respiratory Rate 20 03/23/2024 11:1 6 AM RAIL SPECIALIST Oxygen Saturation 97% 03/23/2024 11: 16 AM RAIL SPECIALIST Inhaled Oxygen Concentration - - Weight 66.1 kg (145 lb 12.8 oz) 024 11:16 AM RAIL SPECIALIST Height 144.8 cm (4' 9 ) 03/23/2024 11:1 6 AM RAIL SPECIALIST Body Mass Index 31.55 03/23/2024 11:16 AM RAIL SPECIALIST Plan of Treatment Not on file Procedures Procedure Name Priority Date/Time Associated Diagnosis [...] Anatomical Region Laterality Modality Other us Korey Randolph MD Final R esult * Screening Mammogram [...] ??with given history of screening. ?? Postmenopausal Distribution Agent/Model: Fishki Discovery SL (S/N [id number]) CLINICAL INFORMATION: Current height: ??56.8 ??inches ? [...] AM T: ??09/08/2022 9:45 AM Report ID: [id number] Reading Location: ??[id number] Procedure Note Nilson Lara MD - 09/08/2022 EXAM DESCRIPTION: DEXA AXIAL SKELETON BONE DENSITY 1 OR MORE SITES REASON FOR STUDY: 82 y/o year old F with given history of screening. Postmenopausal Distribution Agent/Model: Fishki Discovery SL (S/N [id number]) CLINICAL INFORMATION: Current height: 56.8 inches Maximum [...] Nilson Lara M.D. MF: ITZEL Report ID: [id number] Reading Location: [place] [address] Carl Dorado MD IMG DXA PROCEDURES Final Resu lt * COLONOSCOPY IMAGES (01/17/2014) Anatomical Region Laterality Modality Other Narrative 01/17/2014 Ordered by an unspecified provider. Historical Provider GI PROCEDURE ORDERABLES F inal Result from Last 3 Months or Most Recently Relevant to Health [place] [address] [place] [address] [employer] , [place] [address] [employer] MEDICARE , [place] [address] MEDICARE [employer] Advance Directives For more information, please contact: [phone] Documents on File Type Date Recorded Patient Bottle Selector Expl anation ADVANCE DIRECTIVE 04/13/2020 9:34 AM [...] 7:59 AM 08/19/2019 8:00 AM Care Teams Cake Press Operator Helper Relationship Specialty Start Date End Date Korey Randolph MD PCP - General Internal Medicine 05/23/17
--- OUTSIDE RECORDS SUMMARY | 2024-04-07 05:36 | XMS_ITS | Encounter Summary ---
Author Organization [facility] Healthcare Address [address] [place] [address] Care Team Providers Care Quality Nurse Name Role Phone Korey Randolph MD Primary Care Provider Reason for Visit * Reason Onset Date Comments Call Back 05/02/2023 Encounter Details Date Type Department Care Team (Late st Contact Info) Description 05/02/[address] [facility] Primary Care at [address] [place] [address] Korey Randolph MD [address] [place] [address] [address] [place] [address] Call Back Social History Tobacco Use Types [...] 0 01/12/2023 Personal Safety Answer Date Recorded Getting School Help Needed Denies 04/01 Comments No Sex and Gender Information Value Date Recorded Sex Assigned at Not on file Legal Sex Female 11:27 PM ACCOUNT LIAISON Gender Identity Female 08/18/2019 3:36 PM CDT Sexual Orientation Straight 08/18/2019 3: 35 PM CDT documented as of this encounter Miscellaneous Notes * Telephone Encounter - kahlil Sarah - 05/03/2023 9:21 AM CST Call Back Caller???s Concern: Patient states they are open to either time and to please give them a call withthe updated time of appointment. Does message need to be routed? Yes-Action Needed UNT LIAISON * Telephone Encounter - Sophia Deshpande - 05/02/2023 10:25 AM CST Called pt to reschedule double booked appt on 07-03-23 at 2:00. There is a 1:30 or 2:15 available to change to if pt calls back UNT LIAISON documented in this encounter Plan of Treatment Not on file documented as of this encounter Visit Diagnoses Not on filedocumented in this encounter Care Teams Quality Nurse Relationship Specialty Start Date End Date Korey Randolph MD PCP - General Internal Medicine 05/23/17 documented as of this encounter
--- OUTSIDE RECORDS SUMMARY | 2024-04-07 05:36 | XMS_ITS | Encounter Summary ---
Author Organization [facility] Healthcare Address [address] [place] [address] Care Team Providers Care Manager Federal Name Role Phone Korey Randolph MD Primary Care Provider Reason for Visit * Reason Comments Follow-up Back surgery Encounter Details Date Type Department Care Team (Latest Contact Info) Description 08/08/2023 11:30 AM CDT Office Visit [facility] Primary Care at [address] [place] [address] Korey Randolph MD [address] [place] [address] [address] [place] [address] Spondylolisthesis at L4-L5 level (Primary Dx); Gastroesophageal reflux disease without esophagitis; Mixed hyperlipidemia; Esophageal stricture; Bilateral exudative age-related macular degeneration, unspecified stage (HCC); Stricture and stenosis of esophagus Social History Tobacco Use Types Packs/Day Years [...] on file Legal Sex Female 11:27 PM NEWBORN PHOTOGRAPHER Gender Identity Female 08/18/2019 3:36 PM CDT Sexual Orientation Straight 08/18/2019 3: 35 PM CDT documented as of this encounter Last Filed Vital Signs Vital Sign Reading Time Taken Comments Blood Pressure 138/70 08/08/2023 10:58 AM CDT Pulse 89 08/08/2023 10:58 AM CDT Temperature 36.6 ??C (97.9 ??F) 08/08/2023 10:58 AM C DT Respiratory Rate 16 08/08/2023 10:58 AM CDT Oxygen Saturation 98% 08/08/2023 10:58 AM CDT Inhaled Oxygen Concentration - - Weight 64.4 kg (142 lb) 08/08/2023 10:58 AM CDT Height 144.8 cm (4' 9 ) 08/08/2023 10:58 AM CDT Body Mass Index 30.73 08/08/2023 10:58 AM CDT documented in this encounter Progress Notes * Korey Randolph MD - 08/08/2023 11:30 AM CDT [facility] DATE: 1940 Vitals: 08/08/23 1058 BP: 138/70 BP Location: Left arm Patient Position: Sitting Pulse: 89 Resp: 16 Temp: 36.6 ??C (97.9 ??F) SpO2: 98% Weight: 64.4 kg (142 lb) Height: 144.8 cm (4' 9 ) Body mass index is 30.73 kg/m??. Chief Complaint Chief Complaint Patient presents with Follow-up Back surgery HPI Meghana Dueñas is a 83 y.o. female presents today with her significant other for her transition ofcare visit after being in [facility] last week for lumbar spine surgery with Dr. Carl Dorado. she had her L4-L5 fused and postop she had to stay an extra day because of hypotension and severe headaches she said they treated her with caffeine and by the next day she was feeling a lot better since being home she just been using Tylenol for pain her wound has been doing fine she is not using any support to walk even though she has a walker at home. she was admitted on 07/24/2023 and discharged on 07/26/2023 from [facility]. I was able to contact her myself by telephone on August 01, 2023we agreed to do her medication reconciliation at the office which I did today she did have a postopacute cystitis syndrome she does not think she had a Parsons catheter in place during her stay nonetheless I treated her empirically with some antibiotics over the weekend and she feels better today I,Korey Randolph MD have personally reviewed pertinent inpatient and/or ED records, includingdischarge medications and Clindesk if applicable. This patient's discharge medication list has beenreviewed and reconciled with her outpatient medication list and has also been reviewed with patientand/or caregiver. I have noted any changes. Social History Tobacco Use Smoking status: Never Smokeless tobacco: Never Substance and Sexual Activity Drug use: Never Sexual activity: Not Currently Partners: Male control/protection: Tubal Ligation Alcohol Use: Not At Risk (06/06/2023) AUDIT-C Frequency of Alcohol Consumption: Never Average Number of Drinks: Patient does not drink Frequency of Binge Drinking: Never Active Ambulatory Problems Diagnosis Date Noted Gastroesophageal reflux disease without esophagitis 10/07/2016 Hyperlipidemia 10/07/2016 Esophageal stricture 10/07/2016 Bilateral exudative age-related macular degeneration (HCC) 10/07/2016 Vitamin D deficiency 10/07/2016 Spondylosis of lumbar region without myelopathy or radiculopathy 06/26/2019 Intermittent epigastric abdominal pain 08/14/2019 LLQ pain 08/14/2019 Stricture and stenosis of esophagus 08/15/2019 Gastroesophageal reflux disease 08/15/2019 Abdominal pain, epigastric 08/15/2019 Spondylolisthesis at L4-L5 level 08/25/2022 Other osteoporosis 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 pathological fracture 09/21/2022 Chest pain, unspecified type 05/30/2023 Resolved Ambulatory Problems Diagnosis Date Noted Lower respiratory infection 04/10/2018 Mild intermittent asthma without complication 01/16/2019 Small bowel obstruction, partial (CMS/HCC) (HCC) 04/06/2020 Past Medical History: Diagnosis Date Arthritis Bronchitis GERD (gastroesophageal reflux disease) Osteoporosis Pneumonia Sleeping difficulties Vertigo Family History Problem Relation Age of Onset Alzheimer's disease Mother Osteoporosis Mother Arthritis Father Heart attack Father Heart disease Father Cancer Maternal Grandfather No Known Allergies REVIEW OF SYSTEMS Review of Systems Constitutional: Negative for chills, diaphoresis, fatigue, fever and unexpected weight change. HENT: Negative for congestion, hearing loss, postnasal drip, sneezing, sore throat, tinnitus and trouble swallowing. Eyes: Negative for visual disturbance. Respiratory: Negative for cough, shortness of breath and wheezing. Cardiovascular: Negative for chest pain, palpitations and leg swelling. Gastrointestinal: Negative for abdominal pain, anal bleeding, blood in stool, constipation, diarrhea, nausea and vomiting. Endocrine: Negative for polydipsia, polyphagia and polyuria. Genitourinary: Positive for frequency. Negative for dysuria, hematuria and urgency. Nocturia negative Musculoskeletal: Positive for back pain and gait problem. Negative for arthralgias, joint swelling and myalgias. Skin: Negative for rash. Allergic/Immunologic: Negative for environmental allergies and food allergies. Neurological: Negative for dizziness, tremors, syncope and headaches. Hematological: Negative for adenopathy. Does not bruise/bleed easily. Psychiatric/Behavioral: Negative for dysphoric mood and sleep disturbance. PHYSICAL EXAM Physical Exam Vitals and nursing note reviewed. Constitutional: Appearance: Normal appearance. She is well-developed and normal weight. Comments: Weight is stable blood pressure was fine today HENT: Head: Normocephalic and atraumatic. Right Ear: [...] General: Skin is warm and dry. Comments: Her midline lumbar scar looks great there is sohn present no sign of infection or gap osis Neurological: Mental Status: She is alert and oriented to person, place, and time. Deep Tendon Reflexes: Reflexes are normal and symmetric. Psychiatric: Mood and Affect: Mood normal. LAST LABS Lab Results Component Value Date WBC 5.6 05/31/2023 HGB 13.3 05/31/2023 HCT 40.4 05/31/2023 LABPLAT 160 05/31/2023 CHOL 150 05/31/2023 TRIG 86 05/31/2023 HDL 45 05/31/2023 ALT 24 05/30/2023 AST 17 05/30/2023 SODIUM 142 05/31/2023 POTASSIUM 4.0 05/31/2023 CHLORIDE 110 05/31/2023 CREATININE 0.69 05/31/2023 BUNSER 22 05/31/2023 CO2 23 05/31/2023 TSH 2.25 09/21/2022 INR 1.16 05/31/2023 ASSESSMENT AND PLAN Assessment/Plan Diagnoses and all orders for this visit: Spondylolisthesis at L4-L5 level (Primary) Successful surgery in good postop condition after L4-L5 lumbar spinal fusion blood pressure has returned to normal no more headaches Gastroesophageal reflux disease without esophagitis Doing well with PPI therapy no alarm symptoms will continue Protonix Mixed hyperlipidemia Now that her back is better she can start walking and getting some weight off will continue her atorvastatin for now Esophageal stricture No swallowing problems right now let us stay on the Protonix Bilateral exudative age-related macular degeneration, unspecified stage (HCC) She has regular eye checkups Stricture and stenosis of esophagus The patient has no active symptoms right now will continue PPI therapy Future Appointments Date Time Provider Department Center 12/11/2023 1:30 PM [facility] CCLab [facility] Main 12/11/2023 2:30 PM [facility] CC 15 MIN FAST TRACK MBC Cncr Inf [facility] Main 01/15/2024 10:30 AM Truman Khalil MD ENDO [facility] 06/11/2024 2:30 PM Korey Randolph MD PCP IM [facility] All past family, medical, and social history were reviewed and updated in the EMR as well as current medications. Patient offered no further complaints and was in agreement with plan of care. Patientwas advised regarding dosage, use, and side effects of any new medications. Patient was advised to f/u in office with any worsening or little to no improvement of symptoms. Patient was advised to follow-up regarding the results of testing ordered in office today and that they should hear from us regarding the results in 2-3 business days, discussed benefits of MyChart in regard to patient experience. The patient was given the opportunity to have all questions answered today and was in agreementwith the plan of care. This note is dictated and transcribed by with assistance from [employer]. Material Requirements Planning Manager variances may occur. Despite proofreading, typographical errors may occur. documented in this encounter Plan of Treatment Not on file documented as of this encounter Visit Diagnoses Diagnosis Spondylolisthesis at L4-L5 level- Primary Gastroesophageal reflux disease without esophagitis Esophageal reflux Mixed hyperlipidemia Esophageal stricture Stricture and stenosis of esophagus Bilateral exudative age-related macular degeneration, unspecified stage (HCC) Stricture and stenosis of esophagus documented in this encounter Care Teams Manager Federal Relationship Specialty Start Date End Date Korey Randolph MD PCP - General Internal Medicine 05/23/17 documented as of this encounter
--- OUTSIDE RECORDS SUMMARY | 2024-04-07 05:36 | XMS_ITS | Encounter Summary ---
Author Organization [facility] Address [address] [place] [address] Care Team Providers Care Plaster Die Maker Name Role Phone Korey Randolph MD Primary Care Provider Encounter Details Date Type Department Care Team (Late st Contact Info) Description 09/23/2022 Telephone [facility] [address] [address] Truman Khalil MD [address] [facility] [address], [place] [address] Social History Tobacco Use Types Packs/Day [...] on file Legal Sex Female 11:27 PM GRIDDLE COOK Gender Identity Female 08/18/2019 3:36 PM CDT Sexual Orientation Straight 08/18/2019 3: 35 PM CDT documented as of this encounter Plan of Treatment Not on file documented as of this encounter Visit Diagnoses Not on filedocumented in this encounter Additional Health Concerns Infection Onset Date Last Indicated Resolved Time COVID: Suspected 05/30/2023 05/30/2023 05/30/2023 8:46 PM GRIDDLE COOK documented as of this encounter Care Teams Plaster Die Maker Relationship Specialty Start Date End Date Korey Randolph MD PCP - General Internal Medicine 05/23/17 documented as of this encounter
--- OUTSIDE RECORDS SUMMARY | 2024-04-07 05:36 | XMS_ITS | Encounter Summary ---
Author Organization [facility] Address [address] [facility] [address] [place] [address] Care Team Providers Care Ethylene Plant Operator Name Role Phone Korey Randolph MD Primary Care Provider Encounter Details Date Type Department Care Team (Late st Contact Info) Description 09/21/2022 Orders Only [facility] [address] [facility] [address] [place] [address] Jackie Aranda, MOBILE LOUNGE DRIVER [address] [facility] [address] [place] [address] Social History Tobacco Use Types Packs/Day Years [...] on file Legal Sex Female 11:27 PM PRISON KEEPER Gender Identity Female 08/18/2019 3:36 PM CDT Sexual Orientation Straight 08/18/2019 3: 35 PM CDT documented as of this encounter Plan of Treatment Not on file documented as of this encounter Visit Diagnoses Not on filedocumented in this encounter Discontinued Medications Medication Sig Discontinue Reason Start Date End Da te fluticasone propionate (FLONASE) 50 mcg/actuation nasal spray SHAKE LIQUID AND USE 2 SPRAYS IN EACH NOSTRIL DAILY Therapy completed 06/27/2022 09/21/2022 meclizine (ANTIVERT) 25 mg tablet Take 1 tablet (25 mg total) by mouth 3 (three) times a day as needed for dizziness Therapy completed 08/03/2021 09/21/2022 ropivacaine (NAROPIN) 5 mg/mL (0.5 %) injection 4 mL (20 mg total) Therapy completed documented as of this encounter Care Teams Ethylene Plant Operator Relationship Specialty Start Date End Date Korey Randolph MD PCP - General Internal Medicine 05/23/17 documented as of this encounter
--- OUTSIDE RECORDS SUMMARY | 2024-04-07 05:37 | XMS_ITS | Encounter Summary ---
Author Organization [facility] Healthcare Address [address] [place] [address] Care Team Providers Care Teaching Supervisor Name Role Phone Korey Randolph MD Primary Care Provider Encounter Details Date Type Department Care Team (Latest Contact Info) Description 02/08/2022 - 02/08/2022 11:59 PM CONTROL SYSTEMS TECHNICIAN Hospital Encounter [facility] - Imaging [phone] Discharge Disposition: Discharge to home or self care Social History Tobacco Use Types Packs/Day Years Used Date Smoking Tobacco: Never Smokeless Tobacco: Never PHQ-2 Answer Date Recorded PHQ-2 Total Score (If total score is 3 or more points, staff should administer the PHQ-9) 0 08/03/2021 Comments No Sex and Gender Information Value Date Recorded Sex Assigned at Not on file Legal Sex Female 11:27 PM CONTROL SYSTEMS TECHNICIAN Gender Identity Female 08/18/2019 3:36 PM CDT [...] mouth daily 90 tablet 3 06/29/2021 3 benzonatate (TESSALON) 200 mg capsuleIndicatio ns:Acute non-recurrent maxillary sinusitis Take 1 capsule (200 mg total) by mouth 3 (three) times a day as needed for cough 90 capsule 01/09/2022 3 cyanocobalamin, vitamin B-12, (CYANOCOBALAMIN, VIT B-12,,BULK,) powder Take 2 capsules by mouth daily 3 fluticasone propionate (FLONASE) 50 mcg/actuation nasal spray Administer 2 sprays into each nostril daily 48 g 3 06/29/2021 3 meclizine (ANTIVERT) 25 mg tablet Take 1 tablet (25 mg total) by mouth 3 (three) times a day as needed for dizziness 30 tablet 11 08/03/[address] (PROTONIX) 40 mg EC tablet TAKE 1 TABLET (40 MG) BY MOUTH TWICE DAILY 180 tablet 3 06/29/2021 3 ropivacaine (NAROPIN) 5 mg/mL (0.5 %) injection 4 mL (20 mg total) 3 documented as of this encounter Discharge Disposition Disposition Code Departure Means Destination Discharge to home or self care documented in this encounter Plan of Treatment Not on file documented as of this encounter Procedures Procedure Name Priority Date/Time Associated Diagnosis Comments MRI TRANSFER OF OUTSIDE FILMS Routine 02/08/2022 12:00 AM CONTROL SYSTEMS TECHNICIAN documented in this encounter Results * MRI Outside Reference (02/08/2022 12:00 AM CONTROL SYSTEMS TECHNICIAN) Narrative RAD_PACS_OUTSIDE_FILM_[facility] - 08/25/2022 1:09 PM CDT This order has been auto-finalized and does not contain a result. us Carl Dorado MD IMG MRI PROCEDURES Final Resu lt RAD_PACS_OUTSIDE_FILM_[facility] documented in this encounter Visit Diagnoses Not on filedocumented in this encounter Care Teams Teaching Supervisor Relationship Specialty Start Date End Date Korey Randolph MD PCP - General Internal Medicine 05/23/17 documented as of this encounter
--- OUTSIDE RECORDS SUMMARY | 2024-04-07 05:37 | XMS_ITS | Encounter Summary ---
Author Organization [facility] Medical Group Address [address] [place] [id number] Care Team Providers Care Jailor Name Role Phone Korey Randolph MD Primary Care Provider Reason for Visit * Reason Comments COVID-19 EVALUATION Cough, chills, fatig ue, body aches, headaches and fever started on Monday, had her booster vaccine for covid and flu last Monday, no exp, vaccinated. Encounter Details Date Type Department Care Team (Late Contact Info) Description 02/18/2022 10:30 AM INDUSTRIAL TECHNOLOGIST Office Visit [facility] [address] [place] [address] Parminder Chance, [place] [address] [place] [address] Influenza A (Primary Dx); Suspected COVID-19 virus infection Social History Tobacco Use Types Packs/Day Years Used Date Smoking Tobacco: Never Smokeless Tobacco: Never PHQ-2 Answer Date Recorded PHQ-2 Total Score (If total score is 3 or more points, staff should administer the PHQ-9) 0 08/03/2021 Comments No Sex and Gender Information Value Date Recorded Sex Assigned at Not on file Legal Sex Female 11:27 PM INDUSTRIAL TECHNOLOGIST Gender Identity Female 08/18/2019 3:36 PM CDT Sexual Orientation Straight 08/18/2019 3: 35 PM CDT documented as of this encounter Last Filed Vital Signs Vital Sign Reading Time Taken Comments Blood Pressure 106/56 02/18/2022 10:39 AM INDUSTRIAL TECHNOLOGIST Pulse 98 02/18/2022 10:39 AM INDUSTRIAL TECHNOLOGIST Temperature 37.2 ??C (99 ??F) 02/18/2022 10:39 AM INDUSTRIAL TECHNOLOGIST Respiratory Rate 18 02/18/2022 10:39 AM INDUSTRIAL TECHNOLOGIST Oxygen Saturation 96% 02/18/2022 10:39 AM INDUSTRIAL TECHNOLOGIST Inhaled Oxygen Concentration - - Weight 60.3 kg (133 lb) 02/18/2022 10:39 AM INDUSTRIAL TECHNOLOGIST Height 147.3 cm (4' 10 ) 02/18/2022 10:39 AM INDUSTRIAL TECHNOLOGIST Body Mass Index 27.8 02/18/2022 10:39 AM INDUSTRIAL TECHNOLOGIST documented in this encounter Patient Instructions * Patient Instructions* Parminder Chance PA - 02/18/2022 10:30 AM INDUSTRIAL TECHNOLOGIST You have the flu which is viral. You may have been given Tamiflu or Xofluza which will only attempt to shorten the course of the flufor you You will still need to take Tylenol/Motrin for pain or fever You can use OTC meds to help control symptoms Mucinex for chest congestion Sudafed for nasal congestion Cough meds Zyrtec or Claritin for drainage Tylenol/Motrin for pain/fever Get plenty of rest, drink plenty of fluids Please stay out of contact with very young children and the elderly population If you did not get a flu shot this year, please consider one next season Follow up with your PCP if you are not getting any better. STRIAL TECHNOLOGIST documented in this encounter Ordered Prescriptions Prescription Sig Dispense Quantity Refills Last Filled Start Date End Date oseltamivir (TAMIFLU) 75 mg capsuleIndications :Influenza A Take 1 capsule (75 mg total) by mouth 2 (two) times a day for 5 days 10 capsule 02/18/2022 2 documented in this encounter Progress Notes * Parminder Chance PA - 02/18/2022 10:30 AM CST Images from the original note were not included. Subjective/Objective Patient ID: Meghana Dueñas is a 81 y.o. female. Chief Complaint COVID-19 EVALUATION (Cough, chills, fatigue, body aches, headaches and fever started on Monday, had her booster vaccine for covid and flu last Monday, no exp, vaccinated.) 81-year-old white female with 3 day history of loss of appetite, fatigue, fever, ear pain, postnasal drainage, sinus pressure, sore throat, dry cough, shortness of breath, body aches and headache, she has taken DayQuil, NyQuil and Claritin, she has been vaccinated, no known COVID exposure, she did have a flu shot and a COVID booster 3 days before the symptoms started Review of Systems Constitutional: Positive for appetite change, fatigue and fever. Negative for chills and diaphoresis. HENT: Positive for ear pain, postnasal drip, rhinorrhea, sinus pressure and sore throat. Negative for congestion, facial swelling, sinus pain and sneezing. Respiratory: Positive for cough and shortness of breath. Negative for wheezing. Gastrointestinal: Negative for abdominal pain, diarrhea, nausea and vomiting. Musculoskeletal: Positive for myalgias. Neurological: Positive for headaches. Physical Exam Vitals reviewed. Constitutional: General: She is not in acute distress. Appearance: Normal appearance. She is ill-appearing. HENT: Right Ear: Hearing, tympanic membrane, ear canal and external ear normal. Left Ear: Hearing, tympanic membrane, ear canal and external ear normal. Nose: No congestion or rhinorrhea. Right Sinus: No maxillary sinus tenderness or frontal sinus tenderness. Left Sinus: No maxillary sinus tenderness or frontal sinus tenderness. Mouth/Throat: Pharynx: Posterior oropharyngeal erythema present. No pharyngeal swelling, oropharyngeal exudate oruvula swelling. Eyes: General: Right eye: No discharge. Left eye: No discharge. Cardiovascular: Rate and Rhythm: Normal rate and regular rhythm. Pulmonary: Breath sounds: Normal breath sounds and air entry. Abdominal: Tenderness: There is no abdominal tenderness. Lymphadenopathy: Cervical: No cervical adenopathy. Skin: General: Skin is warm and dry. Neurological: Mental Status: She is alert. Mental status is at baseline. Psychiatric: Attention and Perception: Attention normal. Mood and Affect: Mood normal. Speech: Speech normal. Vitals: 02/18/22 1039 BP: 106/56 BP Location: Left arm Patient Position: Sitting Pulse: 98 Resp: 18 Temp: 37.2 ??C (99 ??F) TempSrc: Temporal SpO2: 96% Weight: 60.3 kg (133 lb) Height: 147.3 cm (4' 10 ) Assessment/Plan COVID negative, influenza a positive Rx for Tamiflu sent to pharmacy You have the flu which is viral. You may have been given Tamiflu or Xofluza which will only attempt to shorten the course of the flufor you You will still need to take Tylenol/Motrin for pain or fever You can use OTC meds to help control symptoms Mucinex for chest congestion Sudafed for nasal congestion Cough meds Zyrtec or Claritin for drainage Tylenol/Motrin for pain/fever Get plenty of rest, drink plenty of fluids Please stay out of contact with very young children and the elderly population If you did not get a flu shot this year, please consider one next season Follow up with your PCP if you are not getting any better. Diagnoses and all orders for this visit: Influenza A (Primary) - oseltamivir (TAMIFLU) 75 mg capsule; Take 1 capsule (75 mg total) by mouth 2 (two) times a day for 5 days Suspected COVID-19 virus infection - COVID-19 POC - POCT influenza A/B Recent Results (from the past 4 hour(s)) COVID-19 POC Collection Time: 02/18/22 11:01 AM Result Value Ref Range COVID-19 Ag POC (BD Veritor) Presumptive Negative Presumptive Negative, Invalid POCT influenza A/B Collection Time: 02/18/22 11:01 AM Result Value Ref Range Rapid Influenza A Ag Positive (A) Negative, Invalid Rapid Influenza B Ag Negative Negative, Invalid Patient Education: Disposition Treatment plan including expectations, follow up, and return precautions discussed with patient/parent, verbalizes understanding. Medication dosage, use, and potential adverse reactions discussed with patient/parent. Advised to follow up with PCP if symptoms do not resolve as expected or sooner if condition worsens. Signs/symptoms warranting ER evaluation reviewed. Patient and/or guardian was given an opportunity to ask questions, questions answered. AALIYAH Hastings STRIAL TECHNOLOGIST documented in this encounter Plan of Treatment Not on file documented as of this encounter Procedures Procedure Name Priority Date/Time Associated Diagnosis Comments COVID-19 POC Routine 02/18/2022 11:01 AM INDUSTRIAL TECHNOLOGIST Suspected COVID-19 virus infection POCT INFLUENZA A/B Routine 02/18/2022 11 :01 AM INDUSTRIAL TECHNOLOGIST Suspected COVID-19 virus infection documented in this encounter Results * (ABNORMAL) POCT influenza A/B (02/18/2022 11:01 AM INDUSTRIAL TECHNOLOGIST) Rapid Influenza A Ag Positive(A) Negative, Invalid Rapid Influenza B Ag Negative Negative, Invalid Nasopharyngeal 02/18/2022 11 :01 AM INDUSTRIAL TECHNOLOGIST Parminder FISCHER POINT OF CARE TEST ORDERABLES Final Result * COVID-19 POC (02/18/2022 11:01 AM INDUSTRIAL TECHNOLOGIST) COVID-19 Ag POC (BD Veritor) Presumptive Negative Presumptive Negative, Invalid [facility]AL Nasal 02/18/2022 11:0 1 AM INDUSTRIAL TECHNOLOGIST Parminder FISCHER POINT OF CARE TEST ORDERABLES Final Result Performing Organization Address City/State/[facility] Co de Phone Number [facility] [employer] [address] [place] [place] [address] documented in this encounter Visit Diagnoses Diagnosis Influenza A- Primary Influenza with other respiratory manifestations Suspected COVID-19 virus infection documented in this encounter Additional Health Concerns Infection Onset Date Last Indicated Resolved Time COVID: Suspected 02/18/2022 02/18/2022 02/18/2022 11:02 AM INDUSTRIAL TECHNOLOGIST Influenza, adult 02/18/2022 02/18/2022 02/25/2022 3:05 AM INDUSTRIAL TECHNOLOGIST documented as of this encounter Care Teams Jailor Relationship Specialty Start Date End Date Korey Randolph MD PCP - General Internal Medicine 05/23/17 documented as of this encounter
--- OUTSIDE RECORDS SUMMARY | 2024-04-07 05:37 | XMS_ITS | Encounter Summary ---
Author Organization [facility] Medical Group Address [address] [place] [address] Care Team Providers Care Primary Health Care Nurse Name Role Phone Korey Randolph MD Primary Care Provider Reason for Visit * Reason Comments Dizziness Encounter Details Date Type Department Care Team (Late st Contact Info) Description 08/03/2021 2:15 PM CDT Office Visit [facility] [address] [facility] [address] [place] [address] Korey Randolph MD [address] [place] [address] [address] [place] [address] Acute bacterial otitis media, bilateral (Primary Dx); BMI 26.0-26.9,adult; Spondylosis of lumbar region without myelopathy or radiculopathy; Mixed hyperlipidemia; Benign paroxysmal positional vertigo due to bilateral vestibular disorder Social History Tobacco Use Types Packs/Day Years Used Date Smoking Tobacco: Never Smokeless Tobacco: Never Tobacco Cessation:Counseling Given: Yes PHQ-2 Answer Date Recorded PHQ-2 Total Score (If total score is 3 or more points, staff should administer the PHQ-9) 0 08/03/2021 Comments No Sex and Gender Information Value Date Recorded Sex Assigned at Not on file Legal Sex Female 11:27 PM TELEVISION PARTS TESTER Gender Identity Female 08/18/2019 3:36 PM CDT Sexual Orientation Straight 08/18/2019 3: 35 PM CDT documented as of this encounter Last Filed Vital Signs Vital Sign Reading Time Taken Comments Blood Pressure 112/62 08/03/2021 2:13 PM CDT Pulse 80 08/03/2021 2:13 PM CDT Temperature - - Respiratory Rate 16 08/03/2021 2:13 PM CDT Oxygen Saturation - - Inhaled Oxygen Concentration - - Weight 58.5 kg (129 lb) 08/03/2021 2:13 PM CDT Height 149.9 cm (4' 11 ) 08/03/2021 2:13 PM CDT Body Mass Index 26.05 08/03/2021 2:13 PM CDT documented in this encounter Ordered Prescriptions Prescription Sig Dispense Quantity Refills Last Filled Start Date End Date levoFLOXacin (LEVAQUIN) 500 mg tablet Take 1 tablet (500 mg total) by mouth daily for 7 days 7 tablet 08/03/2021 2 meclizine (ANTIVERT) 25 mg tablet Take 1 tablet (25 mg total) by mouth 3 (three) times a day as needed for dizziness 30 tablet 11 08/03/2021 3 documented in this encounter Progress Notes * Korey Randolph MD - 08/03/2021 2:15 PM CDT [facility] DATE: 1940 Vitals: 08/03/21 1413 BP: 112/62 BP Location: Left arm Patient Position: Sitting Pulse: 80 Resp: 16 Weight: 58.5 kg (129 lb) Height: 149.9 cm (4' 11 ) Body mass index is 26.05 kg/m??. Chief Complaint Chief Complaint Patient presents with ??? Dizziness HPI Meghana Dueñas is a 81 y.o. female presents today for an extra visit. The patient has macular degeneration and is getting ready to moved to a senior apartment and is been doing lot of packing and boxes so forth. She says she became dizzy the last few days there was a spinning quality to it no nausea vomiting or double vision though. No headache but she says her ears feel stopped up she is also congested in the nose as well no sore throat no fever chills no exposure to children Social History Socioeconomic History ??? Marital status: Spouse name: Not on file ??? Number of children: Not on file ??? Years of education: Not on file ??? Highest education level: Not on file Occupational History ??? Not on file Tobacco Use ??? Smoking status: Never Smoker ??? Smokeless tobacco: Never Used Substance and Sexual Activity ??? Alcohol use: Not on file ??? Drug use: Not on file ??? Sexual activity: Not on file Other Topics Concern ??? Not on file Social History Narrative ??? Not on file Social Determinants of Health Financial Resource Strain: Not on file Food Insecurity: Not on file Transportation Needs: Not on file Physical Activity: Not on file Stress: Not on file Social Connections: Not on file Intimate Partner Violence: Not on file Housing Stability: Not on file Active Ambulatory Problems Diagnosis Date Noted ??? Gastroesophageal reflux disease without esophagitis 10/07/2016 ??? Mixed hyperlipidemia 10/07/2016 ??? Esophageal stricture 10/07/2016 ??? Macular degeneration, dry 10/07/2016 ??? Vitamin D deficiency 10/07/2016 ??? Spondylosis of lumbar region without myelopathy or radiculopathy 06/26/2019 ??? Intermittent epigastric abdominal pain 08/14/2019 ??? LLQ pain 08/14/2019 ??? Stricture and stenosis of esophagus 08/15/2019 ??? Gastroesophageal reflux disease 08/15/2019 ??? Abdominal pain, epigastric 08/15/2019 ??? Small bowel obstruction, partial (CMS/HCC) ([facility]) 04/06/2020 Resolved Ambulatory Problems Diagnosis Date Noted ??? Lower respiratory infection 04/10/2018 ??? Mild intermittent asthma without complication 01/16/2019 Past Medical History: Diagnosis Date ??? GERD (gastroesophageal reflux disease) ??? Hyperlipidemia History reviewed. No pertinent family history. No Known Allergies REVIEW OF SYSTEMS Review of Systems Constitutional: Negative for chills, diaphoresis, fatigue, fever and unexpected weight change. HENT: Positive for congestion and ear pain. Negative for hearing loss, postnasal drip, sneezing, sore throat, [...] frequency, hematuria and urgency. Nocturia negative Musculoskeletal: Positive for gait problem. Negative for arthralgias, back pain, joint swelling andmyalgias. Skin: Negative for rash. Allergic/Immunologic: Negative for environmental allergies and food allergies. Neurological: Positive for dizziness. Negative for tremors, syncope and headaches. Hematological: Negative for adenopathy. Does not bruise/bleed easily. Psychiatric/Behavioral: Negative for dysphoric mood and sleep disturbance. PHYSICAL EXAM Physical Exam Vitals and nursing note reviewed. Constitutional: Appearance: She is well-developed. HENT: Head: Normocephalic and atraumatic. Right Ear: External ear normal. Left Ear: External ear normal. Ears: Comments: Bilateral red eardrums no wax nasal congestion bilaterally red pharynx no lymphadenopathyneck was supple Nose: Nose normal. Eyes: Conjunctiva/sclera: Conjunctivae normal. Pupils: Pupils are [...] Reflexes are normal and symmetric. Comments: No focal neurological deficits but she had trouble with finger-nose on the left and she had no nystagmus she did have trouble walking heel to toe as well but again she has poor vision LAST LABS Lab Results Component Value Date WBC 9.8 04/17/2020 HGB 13.1 04/17/2020 HCT 40.7 04/17/2020 LABPLAT 254 04/17/2020 CHOL 145 06/19/2021 TRIG 100 06/19/2021 HDL 50 06/19/2021 ALT 29 06/19/2021 AST 20 06/19/2021 SODIUM 144 06/19/2021 POTASSIUM 3.9 06/19/2021 CHLORIDE 110 06/19/2021 CREATININE 0.63 06/19/2021 BUNSER 19 06/19/2021 CO2 24 06/19/2021 ASSESSMENT AND PLAN Assessment/Plan Diagnoses and all orders for this visit: Acute bacterial otitis media, bilateral (Primary) I am going to give her some Levaquin 5 mg a day for 7 days for the infection BMI 26.0-26.9,adult Weight is just down 12 lb in the last year she is on a new Baptism diet and thinks that is what is causing lose weight Spondylosis of lumbar region without myelopathy or radiculopathy Vaccines be doing okay Mixed hyperlipidemia Will monitor this long-term Benign paroxysmal positional vertigo due to bilateral vestibular disorder I ordered some Antivert 25 mg t.i.d. for the dizziness Other orders - meclizine (ANTIVERT) 25 mg tablet; Take 1 tablet (25 mg total) by mouth 3 (three) times a day as needed for dizziness - levoFLOXacin (LEVAQUIN) 500 mg tablet; Take 1 tablet (500 mg total) by mouth daily for 7 days Future Appointments Date Time Provider Department Center 06/30/2022 3:15 PM Korey Randolph MD [facility] All past family, medical, and social [...] dictated and transcribed by with assistance from [employer]. Data Network Architect variances may occur. Despite proofreading, typographical errors may occur. documented in this encounter Plan of Treatment Not on file documented as of this encounter Visit Diagnoses Diagnosis Acute bacterial otitis media, bilateral- Primary BMI 26.0-26.9,adult Spondylosis of lumbar region without myelopathy or radiculopathy Mixed hyperlipidemia Benign paroxysmal positional vertigo due to bilateral vestibular disorder documented in this encounter Discontinued Medications Medication Sig Discontinue Reason Start Date End Da te predniSONE (DELTASONE) 10 mg tablet prednisone 10 mg tablet Alternate therapy 08/03/2021 documented as of this encounter Historical Medications * This list may reflect changes made after this encounter. predniSONE (DELTASONE) 10 mg tablet prednisone 10 mg tablet 2 added in this encounter Care Teams Primary Health Care Nurse Relationship Specialty Start Date End Date Korey Randolph MD PCP - General Internal Medicine 05/23/17 documented as of this encounter
--- OUTSIDE RECORDS SUMMARY | 2024-04-07 05:37 | XMS_ITS | Encounter Summary ---
Author Organization [facility] Medical Group Address [address] [place] [address] Care Team Providers Care Firer Watertender Name Role Phone Korey Randolph MD Primary Care Provider Reason for Referral * Diagnostic Imaging (Routine) - Closed Specialty Diagnoses / Procedures Referred By Angelo siegel Referred To Contact Diagnoses Visit for screening mammogram Procedures Screening Mammogram Bilateral W Korey Styles MD Phone: tel: fax: [facility] [address] [place] [address] Referral ID Status Reason Start Date Expiration Date Visits Re quested Visits Authorized [id number] Closed 07/17/2020 08/16/2021 1 1 Encounter Details Date Type Department Care Team (Late st Contact Info) Description 07/17/2020 Orders Only [facility] [address] [facility] [address] [place] [address] Korey Randolph MD [address] [place] [address] [address] [place] [address] Visit for screening mammogram (Primary Dx) Social History Tobacco Use Types Packs/Day Years Used Date Smoking Tobacco: Never Smokeless Tobacco: Never PHQ-2 Answer Date Recorded PHQ-2 Total Score (If total score is 3 or more points, staff should administer the PHQ-9) 0 06/26/2020 Comments No Sex and Gender Information Value Date Recorded Sex Assigned at Not on file Legal Sex Female 11:27 PM SENIOR TECHNICAL ANALYST Gender Identity Female 08/18/2019 3:36 PM CDT Sexual Orientation Straight 08/18/2019 3: 35 PM CDT documented as of this encounter Plan of Treatment Not on file documented as of this encounter Results * Screening Mammogram Bilateral W Willie (08/17/2021) Anatomical Region Laterality Modality Breast Bilateral Mammography us Korey Randolph MD IMG MAMMO PROCEDURES Fi nal Result documented in this encounter Visit Diagnoses Diagnosis Visit for screening mammogram- Primary documented in this encounter Care Teams Firer Watertender Relationship Specialty Start Date End Date Korey Randolph MD PCP - General Internal Medicine 05/23/17 documented as of this encounter
--- OUTSIDE RECORDS SUMMARY | 2024-04-07 05:37 | XMS_ITS | Encounter Summary ---
Author Organization [facility] Healthcare Address [address] [place] [address] Care Team Providers Care Skin Therapist Name Role Phone Korey Randolph MD Primary Care Provider Reason for Visit * Auth/Cert (Routine) Specialty Diagnoses / Procedures Referred By Contjayna t Referred To Contact Diagnoses Esophageal stricture Esophageal stricture [K22.2] Procedures [place] ESOPHAGOGASTRODUODENOSCOPY TRANSORAL DIAGNOSTIC ESOPHAGOGASTRODUODENOSCOPY Referral ID Status Reason Start Date Expiration Date Visits Re quested Visits Authorized [id number] 1 1 Encounter Details Date Type Department Care Team (Latest Contact Info) Description 07/11/2022 12:30 PM CDT - 07/11/2022 12:55 PM CDT Surgery [facility] [address] [place] [address] Dennis Ross MD [address] [place] [address] [place] [address] [place] [address] ESOPHAGOGASTRODUODENOSCOPY BALLOON DILATION <30MM Surgery Details Date/Time Status Location OR Service Patient Class Case Class Case Type Trauma Case? 07/11/2022 12:30 PM Posted [facility] ENDOSCOPY GI 02 Gastroenterology Outpatient Elective Panel 1 Procedure LRB Anes Op Region Wound Class Comments ESOPHAGOGASTRODUODENOSCOPY BALLOON DILATION <30MM N/A Monitor Anesthesia Care Surgeon Surgeon Role Service Panel Dennis Ross MD Primary Gastroenterology 1 documented in this encounter Social History Tobacco Use Types Packs/Day Years Used Date Smoking Tobacco: Never Smokeless Tobacco: Never Tobacco Cessation:Counseling Given: Not Answered AUDIT-C Answer Date Recorded Q1: How often do you have a drink containing alcohol? Never 07/11/2022 Q2: How many drinks containi ng alcohol do you have on a typical day when you are drinking? Patient does not drink 3 Q3: How often do you have si x or more drinks on one occasion? 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 Gender Identity Female 08/18/2019 3:36 PM CDT Sexual Orientation Straight 08/18/2019 3: 35 PM CDT documented as of this encounter Last Filed Vital Signs Vital Sign Reading Time Taken Comments Blood Pressure 144/90 07/11/2022 11:14 AM CDT Pulse 76 07/11/2022 11:14 AM CDT Temperature 36.9 ??C (98.4 ??F) 07/11/2022 11:14 AM C DT Respiratory Rate 18 07/11/2022 11:14 AM CDT Oxygen Saturation 96% 07/11/2022 11:14 AM CDT Inhaled Oxygen Concentration - - Weight 62.6 kg (138 lb) 07/11/2022 11:14 AM CDT Height 147.3 cm (4' 10 ) 07/11/2022 11:14 AM CDT Body Mass Index 28.84 07/11/2022 11:14 AM CDT documented in this encounter Medications at Time [...] or self care documented in this encounter H&P Notes * Dennis Ross MD - 07/11/2022 1:43 PM CDT I have reviewed the H&P, examined the patient, and endorse the findings as written. Plan of Care : Based on the above findings, I consider Meghana Dueñas to be an acceptable risk for: Procedure(s): ESOPHAGOGASTRODUODENOSCOPY BALLOON DILATION <30MM Source Note - Calvin Sevilla MD - 07/11/2022 11:31 AM CDT Images from the original note were not included. Anesthesia Evaluation Meghana Dueñas is a 82 y.o. female Procedure(s): ESOPHAGOGASTRODUODENOSCOPY Pre-Op Diagnosis Codes: * Esophageal stricture [K22.2] HISTORY Past Medical History Information obtained from: patient and chart. Neurological Neuro/Psych system: negative Cardiovascular + Hyperlipidemia Respiratory Respiratory system: negative Hepatic / Heme Hepatic/Heme system: negative Gastrointestinal + GERD - on daily therapy. Asymptomatic. Renal / Renal/ system: negative Musculoskeletal/Pain + Osteoarthritis Endocrine / Other Endocrine/Other system: negative Functional Capacity Functional capacity: 4-6 METs Review of Systems + dysphagia Patient Active Problem List Diagnosis ??? Gastroesophageal reflux disease without esophagitis ??? Hyperlipidemia ??? Esophageal stricture ??? Macular degeneration, dry ??? Vitamin D deficiency ??? Spondylosis of lumbar region without myelopathy or radiculopathy ??? Intermittent epigastric abdominal pain ??? LLQ pain ??? Stricture and stenosis of esophagus ??? Gastroesophageal reflux disease ??? Abdominal pain, epigastric ??? Small bowel obstruction, partial (CMS/HCC) (HCC) Past Medical History: Diagnosis Date ??? GERD (gastroesophageal reflux disease) ??? Hyperlipidemia Past Surgical History: Procedure Laterality Date ??? APPENDECTOMY ??? BLADDER NECK SUSPENSION ??? CHOLECYSTECTOMY ??? COLONOSCOPY 01/17/2014 ??? ESOPHAGOGASTRODUODENOSCOPY 07/11/2022 ??? HYSTERECTOMY ??? UPPER GASTROINTESTINAL ENDOSCOPY OB History No obstetric history on file. No Known Allergies Med List Status: Nurse Complete Set By: Isela Paz, RAILCAR SWITCHMAN at 07/11/2022 11:13 AM Taking? Last Dose Start Date End Date Provider atorvastatin (LIPITOR) 10 mg tablet 07/10/2022 06/29/21 -- Korey Randolph MD Take 1 tablet (10 mg total) by mouth daily cholecalciferol (VITAMIN D-3) 1,000 unit capsule 07/10/2022 -- -- Jeremias Sun MD fluticasone propionate (FLONASE) 50 mcg/actuation nasal spray 07/10/2022 06/27/22 -- Korey Randolph MD SHAKE LIQUID AND USE 2 SPRAYS IN EACH NOSTRIL DAILY meclizine (ANTIVERT) 25 mg tablet More than a month 08/03/21 08/03/22 Korey Randolph MD Take 1 tablet (25 mg total) by mouth 3 (three) times a day as needed for dizziness multivitamin with minerals tablet 07/10/2022 -- -- ProviderJeremias MD NON FORMULARY, FOR INPATIENT USE, 07/10/2022 -- -- Jeremias Sun MD pantoprazole DR (PROTONIX) 40 mg EC tablet 07/10/2022 06/27/22 -- Korey Randolph MD TAKE 1 TABLET(40 MG) BY MOUTH TWICE DAILY ropivacaine (NAROPIN) 5 mg/mL (0.5 %) injection More than a month -- -- Provider Historical, MD vitamin E 400 unit capsule 07/10/2022 -- -- Jeremias Sun MD Current Facility-Administered Medications: ??? ondansetron (ZOFRAN) injection 4 mg, 4 mg, intravenous, Q30 Min PRN ??? sodium chloride 0.9% infusion, 125 mL/hr, intravenous, Continuous ??? sodium chloride 0.9% infusion, 30 mL/hr, intravenous, Continuous, Last Rate: 30 mL/hr at 07/11/22 1242, 30 mL/hr at 07/11/22 1242 Social History Tobacco Use Smoking Status Never Smokeless Tobacco Never Alcohol Use: Not At Risk ??? Frequency of Alcohol Consumption: Never ??? Average Number of Drinks: Patient does not drink ??? Frequency of Binge Drinking: Never Substance and Sexual Activity Drug Use Never History reviewed. No pertinent family history. Vitals: 07/11/22 1114 BP: 144/90 Pulse: 76 Resp: 18 Temp: 36.9 ??C (98.4 ??F) SpO2: 96% PT: No results found for requested labs within last 720 hours. INR: No results found for requested labs within last 720 hours. APTT: No results found for requested labs within last 720 hours. Hgb A1C: No results found for requested labs within last 720 hours. CBC RBC: No results found for requested labs within last 720 hours. RDW: No results found for requested labs within last 720 hours. MCHC: No results found for requested labs within last 720 hours. MCH: No results found for requested labs within last 720 hours. MCV: No results found for requested labs within last 720 hours. Hct: No results found for requested labs within last 720 hours. Hgb: No results found for requested labs within last 720 hours. WBC: No results found for requested labs within last 720 hours. MPV: No results found for requested labs within last 720 hours. Platelets: No results found for requested labs within last 720 hours. RDW CV: No results found for requested labs within last 720 hours. RDW Sd: No results found for requested labs within last 720 hours. BMP Glucose: 06/23/2022: 94 mg/dL Calcium: 06/23/2022: 10.0 mg/dL Sodium: 06/23/2022: 144 mmol/L Potassium: 06/23/2022: 4.3 mmol/L CO2: 06/23/2022: 26 mmol/L Chloride: 06/23/2022: 110 mmol/L BUN: 06/23/2022: 26 mg/dL (H) Creatinine: 06/23/2022: 0.78 mg/dL STOP-Bang Total Score: 1 DOS Physical Exam Medical history, medications, and allergies reviewed. Attestation: I endorse the findings of the anesthesia pre-evaluation assessment dated: 07/11/2022. Airway Exam: Mallampati: II Cervical ROM: FROM TM distance: normal Cardiovascular Exam: Rate: regular Pulmonary Exam: LCTA, bilat EENT Exam: trachea midline Dental Exam: Appears intact Skin Exam: Skin is warm. Current state: Patient's current state is cooperative and interactive. Anesthesia Plan ASA 2 My patient is approved for the Anesthesia Controlled Medication protocol when under care of a HYDRAULIC MODELING ENGINEER Planned anesthesia: General/TIVA Induction: Induction: intravenous. Postoperative Plan: No plan for postoperative opioid use. No postoperative mechanical ventilation intended. Patient's planned disposition post procedure is Outpatient. Informed Consent: Discussed plan with attending and HYDRAULIC MODELING ENGINEER. Anesthesia plan and risks discussed with patient. Consent and Attending signature: I and/or my designee have discussed the anesthesia plan, benefits, possible alternatives, parental presence at time of induction (if indicated), and clinically relevant risks that may include dental injury, unintentional awareness, and/or other complications. The patient and/or parent/legal guardian understand, and agree to proceed. All questions answered. documented in this encounter Procedure Notes * Dennis Ross MD - 07/11/2022 11:06 AM CDTAssociated Order(s): EGD [facility] Patient Name: Meghana Dueñas Procedure Date: 07/11/2022 11:06 AM Date of : 1940 Admit Type: Outpatient Age: 82 Gender: Female Attending MD: Dennis Ross M.D. Room: [facility] ENDOSCOPY ROOM 2 Note Status: Finalized Patient Profile: Refer to note in patient chart for documentation of history and physical. Procedure: Upper GI endoscopy Indications: Dysphagia Referring MD: Korey Randolph M.D. Providers: Dennis Ross M.D. Impression: - Abnormal esophageal motility, consistent with presbyesophagus. - Z-line regular, 31 cm from the incisors. Dilated. - 3 cm hiatal hernia. - The examination was otherwise normal. - Normal examined duodenum. - No specimens collected. Recommendation: - Discharge patient to home. - Resume previous diet. - Continue present medications. - Return to primary care physician as previously scheduled. Medicines: Propofol per Anesthesia Complications: No immediate complications. Estimated Blood Loss: Estimated blood loss: none. Procedure: Pre-Anesthesia Assessment: - This assessment was completed [Time of Assessment] prior to the administration of sedation. The benefits, risks, and alternatives to the procedure and sedation were discussed and informed consent was obtained. The scope was passed under direct vision. The Endoscope GIF-H190 [id number] was introduced through the mouth, and advanced to the second part of duodenum. The upper GI endoscopy was accomplished without difficulty. The patient tolerated the procedure well. Findings: Abnormal motility was noted in the esophagus. There is a decrease in motility of the esophageal body. The distal esophagus/lower esophageal sphincter is open. The Z-line was regular and was found 31 cm from the incisors. A TTS dilator was passed through the scope. Dilation with an 18-19-20 mm balloon dilator was performed to 20 mm. The dilation site was examined and showed no change. Estimated blood loss: none. A 3 cm hiatal hernia was present. The exam was otherwise without abnormality. The examined duodenum was normal. Electronically signed by Dennis Ross M.D. Dennis Ross M.D. 07/11/2022 1:01:33 PM Number of Addenda: 0 Note Initiated On: 07/11/2022 11:06 AM Procedure Code(s): --- Professional --- 15403, Esophagogastroduodenoscopy, flexible, transoral; with transendoscopic balloon dilation of esophagus (less than 30 mm diameter) --- Technical --- 48195, Esophagogastroduodenoscopy, flexible, transoral; with transendoscopic balloon dilation of esophagus (less than 30 mm diameter) Diagnosis Code(s): --- Professional --- R13.10, Dysphagia, unspecified K44.9, Diaphragmatic hernia without obstruction or gangrene K22.4, Dyskinesia of esophagus --- Technical --- R13.10, Dysphagia, unspecified K44.9, Diaphragmatic hernia without obstruction or gangrene K22.4, Dyskinesia of esophagus CPT copyright 2020 [employer]. All rights reserved. The codes documented in this report are preliminary and upon computer operations manager review may be revised to meet current compliance requirements. Recognized by the [employer] for promoting quality in endoscopy documented in this encounter Miscellaneous Notes * Perioperative Nursing Note - Veronica Gonzalez RN - 07/11/2022 1:[address] Ross at bedside to discuss results to pt. Instructed her to call his office and he will discuss medications he may prescribe. Stated he will discuss meds with . Pt to cont.dietand meds at home. documented in this encounter Plan of Treatment Not on file documented as of this encounter Procedures Procedure Name Priority Date/Time Associated Diagnosis Comments ESOPHAGOGASTRODUODENOSCOPY BALLOON DILATION <30MM 07/11/2022 12:43 PM CDT Esophageal stricture EGD 07/11/2022 11:06 AM CDT documented in this encounter Results * EGD (07/11/2022 11:06 AM CDT) Anatomical Region Laterality Modality Other Narrative Procedure Note Dennis Ross MD - 07/11/2022 11:06 AM CDT [facility] Patient Name: Meghana Dueñas Procedure Date: 07/11/2022 11:06 AM Date of : 1940 Admit Type: Outpatient Age: 82 Gender: Female Attending MD: Dennis Ross M.D. Room: [facility] ENDOSCOPY ROOM 2 Note Status: Finalized Patient Profile: Refer to note in patient chart for documentation of history and physical. Procedure: Upper GI endoscopy Indications: Dysphagia Referring MD: Korey Randolph M.D. Providers: Dennis R. Vandana, M.D. Impression: - Abnormal esophageal motility, consistent with presbyesophagus. - Z-line regular, 31 cm from the incisors.Dilated. - 3 cm hiatal hernia. - The examination was otherwise normal. - Normal examined duodenum. - No specimens collected. Recommendation: - Discharge patient to home. - Resume previous diet. - Continue present medications. - Return to primary care physician as previously scheduled. Medicines: Propofol per Anesthesia Complications: No immediate complications. Estimated Blood Loss: Estimated blood loss: none. Procedure: Pre-Anesthesia Assessment: - This assessment was completed [Time ofAssessment] prior to the administration of sedation. The benefits, risks, and alternatives to theprocedure and sedation were discussed and informed consentwas obtained. The scope was passed under direct vision. The Endoscope GIF-H190 [id number] was introduced through the mouth, and advanced to the second partof duodenum. The upper GI endoscopy was accomplished without difficulty. The patient tolerated the procedure well. Findings: Abnormal motility was noted in the esophagus. There is a decrease in motility of the esophageal body. The distal esophagus/loweresophageal sphincter is open. The Z-line was regular and was found 31 cm from the incisors. A TTS dilator was passed through the scope. Dilation with an 18-19-20 mm balloon dilator was performed to 20 mm. The dilation site wasexamined and showed no change. Estimated blood loss: none. A 3 cm hiatal hernia was present. The exam was otherwise without abnormality. The examined duodenum was normal. Electronically signed by Dennis Ross M.D. Dennis Ross M.D. 07/11/2022 1:01:33 PM Number of Addenda: 0 Note Initiated On: 07/11/2022 11:06 AM Procedure Code(s): --- Professional --- 61159, Esophagogastroduodenoscopy, flexible, transoral; with transendoscopic balloon dilation of esophagus (less than 30 mmdiameter) --- Technical --- 96629, Esophagogastroduodenoscopy, flexible, transoral; with transendoscopic balloon dilation of esophagus (less than 30 mmdiameter) Diagnosis Code(s): --- Professional --- R13.10, Dysphagia, unspecified K44.9, Diaphragmatic hernia without obstruction or gangrene K22.4, Dyskinesia of esophagus --- Technical --- R13.10, Dysphagia, unspecified K44.9, Diaphragmatic hernia without obstruction or gangrene K22.4, Dyskinesia of esophagus CPT copyright 2020 [employer]. All rights reserved. The codes documented in this report are preliminary and upon computer operations manager reviewmay be revised to meet current compliance requirements. Recognized by the [employer] for promoting quality in endoscopy Dennis Ross MD ENDOSCOPY PROCEDURES Final Re sult documented in this encounter Visit Diagnoses Diagnosis Esophageal stricture- Primary Stricture and stenosis of esophagus Esophageal stricture Stricture and stenosis of esophagus documented in this encounter Admitting Diagnoses Diagnosis Esophageal stricture Stricture and stenosis of esophagus documented in this encounter Administered Medications Inactive Administered Medications - up to 3 most recent administrations Medication Order MAR Action Action Date Dose Rate Site ondansetron (ZOFRAN) injection 4 mg 4 mg, intravenous, Administer over 2 Minutes, Every 30 min PRN, nausea, vomiting, Starting on Mon07/11/22 at 1123, For 2 doses, Recovery (GI), Indications: Nausea and VomitingIndications:Nausea and Vomiting sodium chloride 0.9% infusion 125 mL/hr, intravenous, Continuous, Starting on Mon07/11/22 at 1200, Recovery (GI) sodium chloride 0.9% infusion 30 mL/hr, intravenous, Continuous, Starting on Mon07/11/22 at 1200, Pre-Procedure (GI) Restarted 07/11/2022 12:57 PM CDT Rate/Dose Verify 07/11/2022 12:48 PM CDT 30 mL/ hr New Bag 07/11/2022 12:42 PM CDT 30 mL/hr 30 mL/hr documented in this encounter Discontinued Medications Medication Sig Discontinue Reason Start Date End Da te benzonatate (TESSALON) 200 mg capsuleIndications:Acut e non-recurrent maxillary sinusitis Take 1 capsule (200 mg total) by mouth 3 (three) times a day as needed for cough Therapy completed 01/09/2022 07/11/2022 cyanocobalamin, vitamin B-12, (CYANOCOBALAMIN,VIT B-12,,BULK,) powder Take 2 capsules by mouth daily Therapy completed 07/11/2022 documented as of this encounter Active and Recently Administered Medications Times are shown in CDT. Continuous Medication Order 07/09/2022 07/10/2022 07/11/2022 sodium chloride 0.9% infusion 125 mL/hr, intravenous, Continuous, Starting on Mon07/11/22 at 1200, Recovery (GI) 1200 (Due) sodium chloride 0.9% infusion 30 mL/hr, intravenous, Continuous, Starting on Mon07/11/22 at 1200, Pre-Procedure (GI) 1242 (New Bag - Prov ider: Veronica Gonzaelz RN)1248 (Rate/Dose Verify - Provider: Alvarado Billy CRNA)1256 (Paused - Provider: Alvarado Billy CRNA - Comment: Switch to gravity)1257 (Restarted - Provider: Alvarado Billy CRNA)1743 (Due: Stopped) PRN Medication Order 07/09/2022 07/10/2022 07/11/2022 ondansetron (ZOFRAN) injection 4 mg 4 mg, intravenous, Administer over 2 Minutes, Every 30 min PRN, nausea, vomiting, Starting on Mon07/11/22 at 1123, For 2 doses, Recovery (GI), Indications: Nausea and Vomiting documented in this encounter Orders Medications Ordered That Jeferson ht Not Have Been Administered Count Last Ordered Date First Ordered Date ondansetron (ZOFRAN) injection 4 mg 1 07/11 sodium chloride 0.9% infusion 1 07/11/2022 Discharge Count Last Ordered Date First Orde red Date DISCHARGE PATIENT 1 07/11/2022 documented in this encounter Care Teams Skin Therapist Relationship Specialty Start Date End Date Korey Randolph MD PCP - General Internal Medicine 05/23/17 documented as of this encounter
--- OUTSIDE RECORDS SUMMARY | 2024-04-07 05:37 | XMS_ITS | Encounter Summary ---
Author Organization [facility] Healthcare Address [address] [place] [address] Care Team Providers Care Dispensing And Measuring Optician Name Role Phone Korey Randolph MD Primary Care Provider Reason for Visit * Auth/Cert (Routine) Specialty Diagnoses / Procedures Referred By Angelo t Referred To Contact Diagnoses Esophageal stricture Esophageal stricture [K22.2] Procedures [place] ESOPHAGOGASTRODUODENOSCOPY TRANSORAL DIAGNOSTIC ESOPHAGOGASTRODUODENOSCOPY Referral ID Status Reason Start Date Expiration Date Visits Re quested Visits Authorized [id number] 1 1 Encounter Details Date Type Department Care Team (Late st Contact Info) Description 07/11/2022 12:48 PM CDT Anesthesia Event [address] [address] [place] [address] [facility] [place] [address] Jaime Capps CRNA [address] [place] [address] Anesthesia Record Procedure Summary Procedure Name Responsible Anesthesiologist Anesthesia Start Time Anesthesia Stop Time ESOPHAGOGASTRODUODENOSCOPY BALLOON DILATION <30MM Calvin Sevilla MD 07/11/22 1248 07/11/22 1257 Events Date Time Event Comment 07/11/2022 1247 1248 An Start 1248 An Start Data 1248 Start Supplemental O2 1248 Patient Positioned Laterally 1248 An Induction The patient was reevaluated immediately before moderate or deep sedation use and before anesthesia induction. 1248 Anesthesia Ready 1248 In Room 1257 an stop data 1257 Handoff to RN I completed my handoff to the receiving nurse during which we: 1. Patient identified 2. Responsible provider identified 3. Pertinent medical history reviewed 4. Procedure type and surgical course discussed 5. Intraoperative anesthetic management and any significant issues discussed 6. Expectations and concerns for postop period discussed 7. Questions solicited from receiving nurse 8. Patient disposition at the time of handoff: PACU 1257 An Stop 1258 Release from care 1302 Out of Room Meds Name Total lidocaine (cardiac) syringe 2 % 100 mg propofol 100 mg glycopyrrolate 0.2 mg benzocaine (HURRICAINE ONE) mouth spray 20 % 1 spray sodium chloride 0.9% infusion 300 mL * Agents Name O2 * Blood No blood administrations on file. 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 Gender Identity Female 08/18/2019 3:36 PM CDT Sexual Orientation Straight 08/18/2019 3: 35 PM CDT documented as of this encounter OR Notes * Anesthesia Postprocedure Evaluation - Alvarado Billy CRNA - 07/11/2022 12:57 PM CDT Patient: Meghana Dueñas Procedure Summary Date: 07/11/22 Room / Location: [facility]COPY ROOM 2 / [facility] Anesthesia Start: 1248 Anesthesia Stop: 1257 Procedure: ESOPHAGOGASTRODUODENOSCOPY BALLOON DILATION <30MM Diagnosis: Esophageal stricture (Esophageal stricture [K22.2]) Providers: Dennis Ross MD Responsible Provider: Calvin Sevilla MD Anesthesia Type: general/TIVA ASA Status: 2 Anesthesia Type: general/TIVA Last vitals BP 144/90 Pulse 76 Temp 36.9 ??C (98.4 ??F) (Temporal) Resp 18 SpO2 96% Anesthesia Post Evaluation Patient location during evaluation: PACU Patient participation: complete - patient participated Level of consciousness: fully awake Pain management: satisfactory to patient Airway patency: adequate and patent Cardiovascular status: acceptable Respiratory status: acceptable and nasal cannula Hydration status: acceptable Pt is: normothermic Nausea/Vomiting status: none No notable events documented. * Anesthesia Preprocedure Evaluation - Calvin Sevilla MD - 07/11/2022 11:31 [...] Status: Nurse Complete Set By: Isela Paz, DISTILLATION OPERATOR HELPER at 07/11/2022 11:13 AM Taking? Last Dose [...] multivitamin with minerals tablet 07/10/2022 -- -- Jeremias Sun MD NON FORMULARY, FOR INPATIENT USE, 07/10/2022 -- -- Jeremias Sun MD pantoprazole DR (PROTONIX) 40 mg EC tablet 07/10/2022 06/27/22 -- Korey Randolph MD TAKE 1 TABLET(40 MG) BY MOUTH TWICE DAILY ropivacaine (NAROPIN) 5 mg/mL (0.5 %) injection More than a month -- -- Jeremias Sun MD vitamin E 400 unit capsule 07/10/2022 [...] Medication protocol when under care of a ASPHALT ROLLER OPERATOR Planned anesthesia: General/TIVA Induction: Induction: intravenous. Postoperative Plan: No plan for postoperative opioid use. No postoperative mechanical ventilation intended. Patient's planned disposition post procedure is Outpatient. Informed Consent: Discussed plan with attending and ASPHALT ROLLER OPERATOR. Anesthesia plan and risks discussed with patient. Consent and Attending signature: I and/or my designee have discussed the anesthesia plan, benefits, possible alternatives, parental presence at time of induction (if indicated), and clinically relevant risks that may include dental injury, unintentional awareness, and/or other complications. The patient and/or parent/legal guardian understand, and agree to proceed. All questions answered. documented in this encounter Plan of Treatment Not on file documented as of this encounter Visit Diagnoses Not on filedocumented in this encounter Administered Medications Inactive Administered Medications - up to 3 most recent administrations Medication Order MAR Action Action Date Dose Rate Site benzocaine (HURRICAINE) 20 % mouth spray mouth/throat, As needed, Starting on Mon07/11/22 at 1248, Anesthesia Intra-op Given 07/11/2022 12:48 PM CDT 1 spray glycopyrrolate (ROBINUL) injection intravenous, Administer over 1 Minutes, As needed, Starting on Mon07/11/22 at 1248, Anesthesia Intra-op Given 07/11/2022 12:48 PM CDT 0.2 mg lidocaine (XYLOCAINE) 20 mg/mL (2 %) preservative free injection intravenous, As needed, Starting on Mon07/11/22 at 1248, Anesthesia Intra-op Given 07/11/2022 12:48 PM CDT 100 mg propofoL (DIPRIVAN) 10 mg/mL IV intravenous, As needed, Starting on Mon07/11/22 at 1248, Anesthesia Intra-op Given 07/11/2022 12:53 PM CDT 20 mg Given 07/11/2022 12:48 PM CDT 80 mg sodium chloride 0.9% infusion 30 mL/hr, intravenous, Continuous, Starting on Mon07/11/22 at 1200, Pre-Procedure (GI) Restarted 07/11/2022 12:57 PM CDT Rate/Dose Verify 07/11/2022 12:48 PM CDT 30 mL/ hr New Bag 07/11/2022 12:42 PM CDT 30 mL/hr 30 mL/hr documented in this encounter Care Teams Dispensing And Measuring Optician Relationship Specialty Start Date End Date Korey Randolph MD PCP - General Internal Medicine 05/23/17 documented as of this encounter
--- OUTSIDE RECORDS SUMMARY | 2024-04-07 05:37 | XMS_ITS | Encounter Summary ---
Author Organization [facility] Healthcare Address [address] [place] [address] Care Team Providers Care Correctional Casework Specialist Name Role Phone Korey Randolph MD Primary Care Provider Encounter Details Date Type Department Care Team (Late st Contact Info) Description 08/28/2020 Ancillary Procedure [facility] - Imaging [phone] Social History Tobacco Use Types Packs/Day Years Used Date Smoking Tobacco: Never Smokeless Tobacco: Never PHQ-2 Answer Date Recorded PHQ-2 Total Score (If total score is 3 or more points, staff should administer the PHQ-9) 0 06/26/2020 Comments No Sex and Gender Information Value Date Recorded Sex Assigned at Not on file 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 us Carl Dorado MD IMG MRI PROCEDURES Final Resu lt RAD_PACS_OUTSIDE_FILM_[facility] documented in this encounter Visit Diagnoses Not on filedocumented in this encounter Care Teams Correctional Casework Specialist Relationship Specialty Start Date End Date Korey Randolph MD PCP - General Internal Medicine 05/23/17 documented as of this encounter
--- OUTSIDE RECORDS SUMMARY | 2024-04-07 05:37 | XMS_ITS | Encounter Summary ---
Author Organization [facility] Medical Group Address [address] [place] [address] Care Team Providers Care Economics Consultant Name Role Phone Korey Randolph MD Primary Care Provider Encounter Details Date Type Department Care Team (Late st Contact Info) Description 06/26/2020 Documentation [facility] [address] [place] [id number] Cecily Yoder Social History Tobacco Use Types Packs/Day Years Used Date Smoking Tobacco: Never Smokeless Tobacco: Never PHQ-2 Answer Date Recorded PHQ-2 Total Score (If total score is 3 or more points, staff should administer the PHQ-9) 0 06/26/2020 Comments No Sex and Gender Information Value Date Recorded Sex Assigned at Not on file 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
--- OUTSIDE RECORDS SUMMARY | 2024-04-07 05:37 | XMS_ITS | Encounter Summary ---
Author Organization [facility] Medical Group Address [address] [place] [address] Care Team Providers Care Lining Sewer Name Role Phone Korey Randolph MD Primary Care Provider Reason for Visit * Reason Comments Preventative Care Encounter Details Date Type Department Care Team (Late st Contact Info) Description 06/26/2020 10:00 AM CDT Office Visit [facility] [address] [place] [address] Korey Randolph MD [address] [place] [address] [address] [place] [address] Annual physical exam (Primary Dx); BMI 28.0-28.9,adult; Esophageal stricture; Gastroesophageal reflux disease without esophagitis; Mixed hyperlipidemia; Small bowel obstruction, partial (CMS/HCC) Social History Tobacco Use Types Packs/Day Years Used Date Smoking Tobacco: Never Smokeless Tobacco: Never Tobacco Cessation:Counseling Given: No PHQ-2 Answer Date Recorded PHQ-2 Total Score (If total score is 3 or more points, staff should administer the PHQ-9) 0 06/26/2020 Comments No Sex and Gender Information Value Date Recorded Sex Assigned at Not on file 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 Gender Identity Female 08/18/2019 3:36 PM CDT Sexual Orientation Straight 08/18/2019 3: 35 PM CDT documented as of this encounter Last Filed Vital Signs Vital Sign Reading Time Taken Comments Blood Pressure 114/66 06/26/2020 10:06 AM CDT Pulse 72 06/26/2020 10:06 AM CDT Temperature - - Respiratory Rate - - Oxygen Saturation 98% 06/26/2020 10:06 AM CDT Inhaled Oxygen Concentration - - Weight 64 kg (141 lb) 06/26/2020 10:06 AM CDT Height 149.9 cm (4' 11 ) 06/26/2020 10:06 AM CDT Body Mass Index 28.48 06/26/2020 10:06 AM CDT documented in this encounter Progress Notes * Korey Randolph MD - 06/26/2020 10:00 AM CDT [facility] DATE: 1940 Vitals: 06/26/20 1006 BP: 114/66 BP Location: Left arm Patient Position: Sitting Pulse: 72 SpO2: 98% Weight: 64 kg (141 lb) Height: 149.9 cm (4' 11 ) Body mass index is 28.48 kg/m??. Chief Complaint Chief Complaint Patient presents with ??? Preventative Care HPI Meghana Dueñas is a 80 y.o. female presents today for her annual preventive exam and follow-up visit few months ago she was in the hospital the small-bowel obstruction we will treat her conservatively with NG suction IV fluids and a surgical consult but she opened up on her own is had no problems since and fact she is better than ever with her bowel movements The patient does have macular degeneration gets injections in her right eye every 3 months it seemslike the left eye is dry so there is no shots for that but she can still drive and do pretty well lives independently Social History Socioeconomic History ??? Marital status: [...] Social Determinants of Health Financial Resource Strain: ??? Difficulty of Paying Living Expenses: Food Insecurity: ??? Worried About Running Out of Food in the Last Year: ??? Ran Out of Food in the Last Year: Transportation Needs: ??? Lack of Transportation (Medical): ??? Lack of Transportation (Non-Medical): Physical Activity: ??? Days of Exercise per Week: ??? Minutes of Exercise per Session: Stress: ??? Feeling of Stress : Social Connections: ??? Frequency of Communication with Friends and Family: ??? Frequency of Social Gatherings with Friends and Family: ??? Attends Mandaen Services: ??? Active Member of Clubs or Organizations: ??? Attends Club or Organization Meetings: ??? Marital Status: Intimate Partner Violence: ??? Fear of Current or Ex-Partner: ??? Emotionally Abused: ??? Physically Abused: ??? Sexually Abused: Active Ambulatory Problems Diagnosis Date Noted ??? [...] 08/15/2019 ??? Small bowel obstruction, partial (CMS/HCC) 04/06/2020 Resolved Ambulatory Problems Diagnosis Date Noted ??? Lower respiratory infection 04/10/2018 ??? Mild intermittent asthma without complication 01/16/2019 Past Medical History: Diagnosis Date ??? GERD (gastroesophageal reflux disease) ??? Hyperlipidemia No family history on file. No Known Allergies REVIEW OF SYSTEMS Review of Systems Constitutional: Negative for chills, diaphoresis, fatigue, fever and unexpected weight change. HENT: Negative for congestion, hearing loss, postnasal drip, sneezing, sore throat, tinnitus and trouble swallowing. Eyes: Positive for visual disturbance. Respiratory: Negative for cough, shortness of breath and wheezing. Cardiovascular: Negative for chest pain, palpitations and leg swelling. Gastrointestinal: Negative for abdominal pain, anal bleeding, blood in stool, constipation, diarrhea, nausea and vomiting. Endocrine: Negative for polydipsia, polyphagia and polyuria. Genitourinary: Negative for dysuria, frequency, hematuria and urgency. Nocturia negative Musculoskeletal: Positive for arthralgias. Negative for back pain, joint swelling and myalgias. Skin: Negative for rash. Allergic/Immunologic: Negative for environmental allergies and food allergies. Neurological: Negative for dizziness, tremors, syncope and headaches. Hematological: Negative for adenopathy. Does not bruise/bleed easily. Psychiatric/Behavioral: Negative for dysphoric mood and sleep disturbance. PHYSICAL EXAM Physical Exam Vitals and nursing note reviewed. Constitutional: Appearance: She is well-developed. Comments: Weight is stable her blood pressure is fine HENT: Head: Normocephalic and atraumatic. Right Ear: External ear normal. Left Ear: External ear normal. Nose: Nose normal. Eyes: Conjunctiva/sclera: Conjunctivae normal. Pupils: Pupils are equal, round, and reactive to light. Cardiovascular: Rate and Rhythm: Normal rate and regular rhythm. Heart sounds: Normal heart sounds. Pulmonary: Breath sounds: Normal breath sounds. Abdominal: General: Bowel sounds are normal. Palpations: Abdomen is soft. Comments: Good bowel sounds no masses or megaly no tenderness Genitourinary: Comments: The breast were normal to inspection palpation bilaterally including the axilla Musculoskeletal: General: Normal range of motion. Cervical back: Normal range of motion and neck supple. Skin: General: Skin is warm and dry. Neurological: Mental Status: She is alert and oriented to person, place, and time. Deep Tendon Reflexes: Reflexes are normal and symmetric. LAST LABS Lab Results Component Value Date WBC 9.8 04/17/2020 HGB 13.1 04/17/2020 HCT 40.7 04/17/2020 LABPLAT 254 04/17/2020 CHOL 144 06/12/2020 TRIG 64 06/12/2020 HDL 49 06/12/2020 ALT 32 06/12/2020 AST 19 06/12/2020 SODIUM 142 06/12/2020 POTASSIUM 4.2 06/12/2020 CHLORIDE 110 06/12/2020 CREATININE 0.59 (L) 06/12/2020 BUNSER 16 06/12/2020 CO2 24 06/12/2020 ASSESSMENT AND PLAN Assessment/Plan Diagnoses and all orders for this visit: Annual physical exam (Primary) The patient is up-to-date with her colon and breast cancer checkups she is stool for a Pap smear her self assessment going detail the home environment safe fall risk minimal cognitive and depression screening good speech hearing and swallowing okay nutritional status is fine and her vaccines she isdue for tetanus shot she has already got a COVID -19 vaccination it looks like and she is really up-to-date with everything else BMI 28.0-28.9,adult She does a good job keeping her weight stable Esophageal stricture No swallowing troubles for now Gastroesophageal reflux disease without esophagitis She is doing well with PPI therapy no alarm symptoms Mixed hyperlipidemia - Lipid panel; Future - Comprehensive metabolic panel; Future HDL 49 LDL 82 triglycerides 64 were in good shape there Small bowel obstruction, partial (CMS/HCC) At this point we do not plan any further intervention or testing will just wait for symptoms to recur her Future Appointments Date Time Provider Department Center 06/29/2021 10:15 AM Korey Randolph MD [facility] All past family, medical, and social history [...] dictated and transcribed by with assistance from [employer]. Guest Services variances may occur. Despite proofreading, typographical errors may occur. documented in this encounter Plan of Treatment Not on file documented as of this encounter Results * Comprehensive metabolic panel (06/19/2021 9:24 AM CDT) Sodium 144 135 - 145 mmol/L [facility] ([place]) Potassium, pl 3.9 3.3 - 4.9 mmol/L [facility] ([place]) Chloride 110 97 - 110 mmol/L [facility] ([place]) CO2 24 22 - 32 mmol/L [facility] ([place]) Anion gap 10 2 - 15 mmol/L [facility] ([place]) BUN 19 8 - 25 mg/dL [facility] ([place]) Creatinine 0.63 0.60 - 1.10 mg/dL [facility] ([place]) Glucose 94 70 - 199 mg/dL [facility] ([place]) [...] classification and Diagnosis of Diabetes Diabetes Care 2017;40 (Suppl. 1):S11. Current interpretive data was last revised 2017. Calcium 9.6 8.5 - 10.3 mg/dL [facility] ([place]) Bilirubin, total 0.3 0.1 - 1.2 mg/dL [facility] ([place]) Protein, pl 6.8 6.5 - 8.5 g/dL [facility] ([place]) Albumin 4.0 3.5 - 5.0 g/dL [facility] ([place]) Alk phos 86 40 - 130 Units/L [facility] ([place]) ALT 29 7 - 45 Units/L [facility] ([place]) AST 20 10 - 45 Units/L [facility] ([place]) Blood 06/19/2021 9:24 AM CDT 06/19/2021 9:47 AM CDT us Korey Randolph MD LAB BLOOD ORDERABLES Fi nal Result [facility] ([place]) [address] Department [place] [address] * Lipid panel (06/19/2021 9:24 AM CDT) [facility] Signature Cholesterol 145 30 - 199 mg/dL [facility] ([place]) Comment: Interpretive Data [...] Data was last revised on 2017. Triglycerides 100 <=149 mg/dL [facility] ([place]) Comment: Interpretive [...] Data was last revised on 2017. HDL 50 >=40 mg/dL [facility] REYNOLDS) Comment: Interpretive Data [...] was last revised on 2017. LDL, calculated 75 <=129 mg/dL [facility] ([place]) Comment: Interpretive [...] was last revised on 2017. Non-HDL Cholesterol 95 mg/dL [facility] ([place]) Comment: Interpretive Data [...] revised on 2017. Chol/HDL ratio 3 [facility]IL[facility] Nuno [facility] ([place]) Blood 06/19/2021 9:24 AM CDT 06/19/2021 9:47 AM CDT us Korey Randolph MD LAB BLOOD ORDERABLES Fi nal Result [facility] ([place]) [address] [facility] [address] [facility] Department [place] [address] documented in this encounter Visit Diagnoses Diagnosis Annual physical exam- Primary Routine general medical examination at a health care facility BMI 28.0-28.9,adult Esophageal stricture Stricture and stenosis of esophagus Gastroesophageal reflux disease without esophagitis Esophageal reflux Mixed hyperlipidemia Small bowel obstruction, partial (CMS/HCC) (HCC) Unspecified intestinal obstruction documented in this encounter Care Teams Lining Sewer Relationship Specialty Start Date End Date Korey Randolph MD PCP - General Internal Medicine 05/23/17 documented as of this encounter
--- OUTSIDE RECORDS SUMMARY | 2024-04-07 05:37 | XMS_ITS | Encounter Summary ---
Author Organization [facility] Medical Group Address [address] [place] [address] Care Team Providers Care Assistant Manager Bilingual Name Role Phone Korey Randolph MD Primary Care Provider Reason for Visit * Reason Onset Date Comments Schedule EGD 06/30/2022 Encounter Details Date Type Department Care Team (Late st Contact Info) Description 06/30/2022 Telephone [facility] Gastroenterology at [address] [place] [address] Anjali White Schedule EGD Social History Tobacco Use Types Packs/Day Years Used Date Smoking Tobacco: Never Smokeless Tobacco: Never PHQ-2 Answer Date Recorded PHQ-2 Total Score (If total score is 3 or more points, staff should administer the PHQ-9) 0 06/30/2022 Comments No Sex and Gender Information Value Date Recorded Sex Assigned at Not on file 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 Ross on 07/11/22. Instructions given in office, emailed to and sent via Room [employer]. Pt on blood thinner (if yes, list medication and reason for taking): No Has pt had recent stent placement within the last year: No Pt have pacemaker/defibrillator: No Pt diabetic (if yes, insulin or oral meds): No Pt have kidney disease or on dialysis: No Pt on iron: No Mechanical Heart valve: No COVID-19 test verbally given to pt: Not Needed Instructed pt to call with any medical changes and/or medications/insurance. documented in this encounter Plan of Treatment Not on file documented as of this encounter Visit Diagnoses Diagnosis Esophageal stricture- Primary Stricture and stenosis of esophagus documented in this encounter Orders Case Request Count Last Ordered Date First Orde red Date CASE REQUEST GI 1 06/30/2022 documented in this encounter Care Teams Assistant Manager Bilingual Relationship Specialty Start Date End Date Korey Randolph MD PCP - General Internal Medicine 05/23/17 documented as of this encounter
--- OUTSIDE RECORDS SUMMARY | 2024-04-07 05:37 | XMS_ITS | Encounter Summary ---
Author Organization [facility] Address [address] [place] [address] Care Team Providers Care Account Specialist Name Role Phone Korey Randolph MD Primary Care Provider Reason for Visit * Reason Comments Chest Pain Encounter Details Date Type Department Care Team (Late st Contact Info) Description 05/26/2020 3:30 PM COTTON EXPERT Office Visit [facility] [address] [facility] [address] [place] [address] Dayton Cast PA [address] [facility] [address] [place] [address] Arthropathy of left shoulder (Primary Dx); Chest discomfort; Mixed hyperlipidemia Social History Tobacco Use Types Packs/Day Years Used Date Smoking Tobacco: Never Smokeless Tobacco: Never Tobacco Cessation:Counseling Given: No PHQ-2 Answer Date Recorded PHQ-2 Total Score (If total score is 3 or more points, staff should administer the PHQ-9) 0 05/26/2020 Comments No Sex and Gender Information Value Date Recorded Sex Assigned at Not on file Legal Sex Female 11:27 PM COTTON EXPERT Gender Identity Female 08/18/2019 3:36 PM CDT Sexual Orientation Straight 08/18/2019 3: 35 PM CDT documented as of this encounter Last Filed Vital Signs Vital Sign Reading Time Taken Comments Blood Pressure 122/72 05/26/2020 3:19 PM COTTON EXPERT Pulse 73 05/26/2020 3:19 PM COTTON EXPERT Temperature - - Respiratory Rate - - Oxygen Saturation - - Inhaled Oxygen Concentration - - Weight 63.5 kg (140 lb) 05/26/2020 3:19 PM COTTON EXPERT Height 149.9 cm (4' 11 ) 05/26/2020 3:19 PM COTTON EXPERT Body Mass Index 28.28 05/26/2020 3:19 PM COTTON EXPERT documented in this encounter Patient Instructions * Patient Instructions* Dayton Cast PA - 05/26/2020 3:30 PM COTTON EXPERT My medical massage therapist, Henny, and I are thankful you have trusted us with your care, and hope thatyou received EXCELLENT care today! Please do not hesitate to call if you have any questions or concerns. You may receive a phone call or text asking about your care today. We would love to hear your input and again, hope your visit was as EXCELLENT as possible, even if you were not feeling your best! -Dayton Cast PA-C ON EXPERT documented in this encounter Progress Notes * Dayton Cast PA - 05/26/2020 3:30 PM CST Subjective/Objective Patient ID: Meghana Dueñas is a 80 y.o. female. Chief Complaint Chest Pain HPI Pt is 80 yo h/o HLD who states she got her first Moderna covid vaccine on 05/13 in her L arm . Her Larm was sore for a few days, and she has been having on and off light pains down it since then. Shestates yesterday she had a twinge of jaw pain down to neck, into L arm but states did not last long and was not severe. It is now gone. She denies pain today besides light pains in arm that go on and off still. Her L posterior neck is a little sore. Pt denies SOB, no exertional sx. None of the discomfort is exertional, but rather random.she denies palpitations. Pt does note she has a h/o Neck pain with bulging discs , shoulder pain. And had L shoudler surgeryyears ago. Her L shoulder and arm are more sore with ROM, such as raising it. Pt has been taking Aleve for the sx to modest relief. F of LA age 51 , had 1st one at 48. Pt herself has no PMHx heart disease. She came today with minimal worry but her sister suggest she get ECG today. Review of Systems Constitutional: Negative for chills and fever. Respiratory: Negative for cough, chest tightness, shortness of breath and wheezing. Cardiovascular: Negative for chest pain, palpitations and leg swelling. Musculoskeletal: Positive for arthralgias (L shoulder, L arm) and neck pain. Neurological: Negative for dizziness, light-headedness, numbness and headaches. Vitals: 05/26/20 1519 BP: 122/72 BP Location: Right arm Patient Position: Sitting Pulse: 73 Weight: 63.5 kg (140 lb) Height: 149.9 cm (4' 11 ) Physical Exam Constitutional: General: She is not in acute distress (pleasant , appears younger than stated age). Neck: Vascular: No carotid bruit. Cardiovascular: Rate and Rhythm: Normal rate and regular rhythm. Pulses: Normal pulses. Heart sounds: Normal heart sounds. No murmur. Pulmonary: Breath sounds: Normal breath sounds. No wheezing, rhonchi or rales. Chest: Chest wall: No tenderness (NT in chest wall, back). Musculoskeletal: General: Tenderness (L trapezius and L shoulder. inc pain with ROM/raising L arm above head.. NT toturn head) present. Right lower leg: No edema. Left lower leg: No edema. Comments: decreased ROM with raising L arm above head Skin: Findings: No bruising, erythema or rash. ECG today:NSR, VR 74, no ST o rT wave changes. Normal ECG Assessment/Plan Diagnoses and all orders for this visit: Arthropathy of left shoulder (Primary) Comments: Pt states she will set up appt with her orthopedic surgeon in [place] regarding her shoulder and neck. Aleve with food, tylenol ok. Chest discomfort Comments: Now resolved. LIkely radiation of pain from L shoulder. ECG normal, BP perfect. No typical cardiac sx. However did offer stress test which was denied. Any recurrence to contact us. Orders: - ECG 12 lead Mixed hyperlipidemia Comments: Pt on Lipitor 10 and LDL contorlled at 101 FU 1 mo as schedule.d Side effects, risks, interactions reviewed with patient. Indications for testing discussed. Any further problems to contact us. She was told what to look out for and verbalized understanding. The patient was given the opportunity to have all questions answered today and was in agreement with the plan of care. Cosigned by Korey Randolph MD at 05/27/2020 12:03 PM COTTON EXPERT ON EXPERT ON EXPERT documented in this encounter Plan of Treatment Not on file documented as of this encounter Procedures Procedure Name Priority Date/Time Associated Diagnosis Comments ECG 12-LEAD Routine 05/26/2020 Chest discomfort documented in this encounter Results * ECG 12 lead (05/26/2020) Dayton FISCHER ECG ORDERABLES Final R esult documented in this encounter Visit Diagnoses Diagnosis Arthropathy of left shoulder- Primary Chest discomfort Other chest pain Mixed hyperlipidemia documented in this encounter Care Teams Account Specialist Relationship Specialty Start Date End Date Korey Randolph MD PCP - General Internal Medicine 05/23/17 documented as of this encounter
--- OUTSIDE RECORDS SUMMARY | 2024-04-07 05:37 | XMS_ITS | Encounter Summary ---
Author Organization [facility] Address [address] [place] [address] Care Team Providers Care Bucket Turner Name Role Phone Korey Randolph MD Primary Care Provider Reason for Visit * Reason Onset Date Comments Medical Question/Miscellaneous 07/12/2022 Encounter Details Date Type Department Care Team (Late st Contact Info) Description 07/12/2022 Telephone [facility] Primary Care at [address] [place] [address] Korey Randolph MD [address] [place] [address] [address] [place] [address] Medical Question/Miscellaneous Social History Tobacco Use Types [...] on file 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 This is something we see in older people so that is why he said it was ???worn out?? unfortunately there is no treatment for this she will just have to eat more slowly and take her time and avoid foods that gets stuck in there there was no blockage no tumors so it is not all bad she does have a hiatal hernia which means acid can get up into her throat more easily so mostpeople would benefit from taking an acid controlling medication * Telephone Encounter - Michelle Quintero - 07/12/2022 9:48 AM CDT Medical Question/Miscellaneous Caller???s Concern: Patient had an EGD yesterday at [facility] by Dr. Hogan, and she doesn't understand what he told her. 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 She doesn't know what that means.She would like you to call her and explain her results to her. Caller???s Call back #: [phone]. Does message need to be routed?Yes-Action Needed documented in this encounter Plan of Treatment Not on file documented as of this encounter Visit Diagnoses Not on filedocumented in this encounter Care Teams Bucket Turner Relationship Specialty Start Date End Date Korey Randolph MD PCP - General Internal Medicine 05/23/17 documented as of this encounter
--- OUTSIDE RECORDS SUMMARY | 2024-04-07 05:37 | XMS_ITS | Encounter Summary ---
Author Organization [facility] Address [address] [place] [address] Care Team Providers Care Conversion Worker Name Role Phone Korey Randolph MD Primary Care Provider Reason for Visit * Reason Comments PT Initial Eval * Consultation (Routine) - Closed Specialty Diagnoses / Procedures Referred By Contac t Referred To Contact Physical Therapy Diagnoses Right knee pain, unspecified chronicity Calvin Fajardo MD [address] [place] [address] Phone: tel: fax: [address] [phone] Referral ID Status Reason Start Date Expiration Date V isits Requested Visits Authorized [id number] Closed Specialty Services Required 06/29/2020 07/29/2021 8 8 Encounter Details Date Type Department Care Team (Late st Contact Info) Description 07/07/2020 4:00 PM CDT Therapy [facility] [place] [address] [id number] Carl Anderson, PT Right knee pain, unspecified chronicity (Primary Dx) Social History Tobacco Use Types Packs/Day Years Used Date Smoking Tobacco: Never Smokeless Tobacco: Never PHQ-2 Answer Date Recorded PHQ-2 Total Score (If total score is 3 or more points, staff should administer the PHQ-9) 0 06/26/2020 Comments No Sex and Gender Information Value Date Recorded Sex Assigned at Not on file Legal Sex Female 11:27 PM LEGAL RECEPTIONIST Gender Identity Female 08/18/2019 3:36 PM CDT Sexual Orientation Straight 08/18/2019 3: 35 PM CDT documented as of this encounter Progress Notes * Carl Anderson, PT - 07/07/2020 4:00 PM CDT Physical Therapy Initial Evaluation Meghana Lakhaniiva 1940 80 y.o. female Calvin Fajardo MD [address] [place] [address] ICD-9-CM ICD-10-CM 1. Right knee pain, unspecified chronicity 719.46 M25.561 Ambulatory referral order to Physical Therapy - PT Initial Eval Subjective History of Present Illness: Yina reports that she initially had some right hip pain. She was getting treated for it by a chiropractor. Then she was cleaning and came across her knee brace. She put the brace on and her hip quit hurting. She went to Dr. Fajardo and had an x-ray of her right knee. She was given an injection and prednisone. He recommended some PT. Current Symptoms: She complains of pain in the right knee down the shirley and up to her right hip. Pain: Pain location: right knee Current Pain Ratin-4/10 At worst Pain Ratin/10 At best Pain Ratin-3/10 Aggravating Factors: standing too long Alleviating Factors: sit down, use knee brace, Aleve Patient Goals: Eliminate pain in right knee Objective Inspection: No obvious deformities of right knee. Gait: Gait is unremarkable on this date. AROM: Motion Right Left Knee Flexion 130 130 Knee Extension (3) 0 PROM: Motion Right Left Knee Flexion 135 135 Knee Extension 0 0 Strength: Right Left Hip Flexion 4+/5 5/5 Hip Abduction 5/5 5/5 Hip Adduction 5/5 5/5 Knee Extension 4+/5 5/5 Knee Flexion 5/5 5/5 Palpation: There is tenderness and tightness elicited to palpation of the right ITB, around the hip, and around the knee. Treatment Provided: Moist heat to right ITB and knee. FIRE CONTROL ASSISTANT to right ITB and lateral knee. Stretching to right hip, piriformis, and hamstrings. Patient performed ITB stretch on the right and was instructed in single knee to chest stretch and single knee to opposite shoulder stretch. Patient requires skilled therapy to restore prior level of function utilizing the treatment and modalities described in this plan of Care. Following the evaluation and extensive patient education regarding diagnosis, prognosis, and treatment goals, the patient (parent/guardian, power of trademark attorney [place]) actively participated in the creation of the current goals and agrees to the current treatment plan. Assessment/Plan Assessment Impairments: activity tolerance, endurance, flexibility, lacks appropriate home exercise program, muscle length, pain with function, impaired physical strength, abnormal or restricted ROM Assessment details: Yina was seen this date for initial evaluation of her right knee. She reports discomfort in her right knee, down her right shirley, and up into her right hip. She displays only slight decreased knee range of motion. There is tenderness and tightness elicited to palpation of the right ITB, around the hip, and around the knee. There is slight decreased knee strength noted. There is decreased flexibility noted in the right piriformis and ITB. Prognosis: good STG: Patient to be independent with HEP. NEW Patient to decrease pain level to 0-2/10. NEW LTG: Patient to increase range of motion as tolerated. NEW Patient to increase strength as tolerated. NEW Patient to return to prior level of function and self care. NEW Plan Start time: 1550 End time: 1650 Therapy options: will be seen for skilled therapy services Planned modality interventions: cryotherapy, ultrasound, thermotherapy (hydrocollator packs), interferential current Planned therapy interventions: abdominal trunk stabilization, functional ROM exercises, manual therapy, neuromuscular re-education, spinal/joint mobilization, therapeutic activities, strengthening, joint mobilization, balance/weight-bearing training, endurance training, flexibility, home exercise program, soft tissue mobilization, stretching Frequency: 2 x/week Duration in weeks: 4 weeks Discussed with: patient Carl Anderson PT In order to comply with payor and regulatory requirements, the plan of care as stated in this letter must be approved by the referring practitioner. Please sign and return to indicate approval of treatment plan. I certify that the plan of care as stated in this letter is appropriate and medically necessary Glendy Dueñas, Date of : 1940, . Signature: Date: Please sign and fax back to [phone] documented in this encounter Plan of Treatment Not on file documented as of this encounter Visit Diagnoses Diagnosis Right knee pain, unspecified chronicity- Primary documented in this encounter Orders Outpatient Referral Count Last Ordered Date Fir st Ordered Date AMB REFERRAL ORDER TO PHYSICAL THERAPY 1 documented in this encounter Care Teams Conversion Worker Relationship Specialty Start Date End Date Korey Randolph MD PCP - General Internal Medicine 05/23/17 documented as of this encounter
--- OUTSIDE RECORDS SUMMARY | 2024-04-07 05:37 | XMS_ITS | Encounter Summary ---
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 SURFACE SUPERVISOR to right ITB and lateral knee* Stretching to right hip, piriformis, and hamstrings Kinesiotape to the right ITB Patient performed ITB stretch on the right and was instructed in single knee to chest stretch and single knee to opposite shoulder stretch. Assessment: Yina is receptive to the current treatment program She is taking an active role in her HEP Plan: Continue with current plan of care Start Time: 8:45 End Time:9:25 Mónica Hawkins PTA documented in this encounter Plan of Treatment Not on file documented as of this encounter Visit Diagnoses Diagnosis Right knee pain, unspecified chronicity- Primary documented in this encounter Care Teams Security System Administrator Relationship Specialty Start Date End Date Korey Randolph MD PCP - General Internal Medicine 05/23/17 documented as of this encounter
--- OUTSIDE RECORDS SUMMARY | 2024-04-07 05:37 | XMS_ITS | Encounter Summary ---
Author Organization [facility] Address [address] [place] [address] Care Team Providers Care Culture Media Laboratory Assistant Name Role Phone Korey Randolph MD Primary Care Provider Reason for Referral * Diagnostic Imaging (Routine) - Closed Specialty Diagnoses / Procedures Referred By Contac t Referred To Contact Diagnoses Spondylosis of lumbar region without myelopathy or radiculopathy Procedures XR Spine Lumbar Ap Lat Flex Ext min 4 Views Carl Dorado MD Phone: tel: fax: [facility] Referral ID Status Reason Start Date Expiration Date Visits Re quested Visits Authorized [id number] Closed 08/25/2022 09/24/2023 1 1 Reason for Visit * Reason Comments Pain Encounter Details Date Type Department Care Team (Latest Contact Info) Description 08/25/2022 1:30 PM CDT Office Visit [facility] [address] [place] [address] Carl Dorado MD 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 Gender Identity Female 08/18/2019 3:36 PM CDT Sexual Orientation Straight 08/18/2019 3: 35 PM CDT documented as of this encounter Last Filed Vital Signs Vital Sign Reading Time Taken Comments Blood Pressure 122/86 08/25/2022 1:19 PM CDT Pulse 71 08/25/2022 1:19 PM CDT Temperature - - Respiratory Rate 14 08/25/2022 1:19 PM CDT Oxygen Saturation - - Inhaled Oxygen Concentration - - Weight 64 kg (141 lb) 08/25/2022 1:19 PM CDT Height 147.3 cm (4' 10 ) 08/25/2022 1:19 PM CDT Body Mass Index 29.47 08/25/2022 1:19 PM CDT documented in this encounter Progress Notes * Lala Roblero RN - 08/25/2022 1:30 PM CDT RN - NEW PATIENT ENCOUNTER CC: Low back pain d/t bulging disc Onset Date: 2021- nothing in particular caused it Symptoms: constant mid lower back back - radiates in bilateral buttock hip area- wraps around bilateral hips into bilateral groin area, radicular pains to bilateral thighs anterior and posterior to about the knee level- denies N/T in the legs, c/o muscle spasms in lower back causing legs to shoot up off the bed, weakness occasionally to bilateral legs, trouble standing for long periods of time- legs will start to shake- denies rosario weakness, worse with sitting to standing, sitting comfortable in padding to chair, walking for any amount of distance will increase pain, Active walker in the past- did 5K walking until 79 years old- won 1st place in [employer], denies B/B issues, restless at night d/t pain, laying on back hurts worse than anything Smoking Status: Non Smoker Treating MD'S: Dr. Randolph (PCP), Dr. Fajardo(Ortho), Dr. Andrade (Pain Mgmt) Treatment: PT-no relief, Chiro- no relief, Ice- some relief, NSAIDs- some relief, Lumbar Facet injection- some relief, Multiple Epidural Injection Apr - May 2022- some relief ( All in the upper spine) Tests: MRI Lumbar 08/19 ([facility]) MRI Lumbar 08/21([facility]) MRI Lumbar Spine 02/2022 ([facility] ) Work Status: Retired Review of Systems Constitutional: Negative for fever. HENT: Negative for sore throat. Eyes: Negative for blurred vision. Respiratory: Positive for shortness of breath. Negative for cough. SOB on exertion Cardiovascular: Negative for chest pain. Gastrointestinal: Negative for abdominal pain. Genitourinary: Negative for flank pain. Musculoskeletal: Positive for back pain. Skin: Negative for rash. Neurological: Negative for headaches. Endo/Heme/Allergies: Does not bruise/bleed easily. Psychiatric/Behavioral: Negative for depression. Oswestry: 19 PHQ: 0 * Carl Dorado MD - 08/25/2022 1:30 PM CDT Images from the original note were not included. CC: Low back pain and bilateral leg pain HPI Ms. Dueñas is a 82 y.o. year old female referred for evaluation of spondylolisthesis by Calvni Fajardo MD. The patient reports that her symptoms began in 2021 without any particular precipitatingevent. She reports constant mid lower back pain that radiates into the bilateral buttocks. She is radiation around the hips into the bilateral groin. She reports radiation into her anterior and posterior thighs. This ends at the level of the knee. She denies any numbness or tingling in her legs. She does complain of muscle spasms in her lower back and spasms in her left leg. She reports occasional weakness in her legs. She has difficulty standing for long periods of time. She denies any rosario weakness. Pain is worse with sitting to standing. She reports that walking any significant distance worsens pain. She reports that she was very active walker in the past and did 5 case up until the ageof 79. She won 1st place in the [employer]. She denies any bowel or bladder issues. She reports that her legs are restless at night due to pain. She reports that lying on her back hurts worse than on her sides. Smoking Status: Non Smoker Treating MD'S: Dr. Randolph (PCP), Dr. Fajardo(Ortho), Dr. Andrade (Pain Mgmt) Treatment: PT-no relief, Chiro- no relief, Ice- some relief, NSAIDs- some relief, Lumbar Facet injection- some relief, Multiple Epidural Injection Apr - May 2022- some relief ( All in the upper spine) Tests: MRI Lumbar 08/19 ([facility]) MRI Lumbar 08/21([facility]) MRI Lumbar Spine 02/2022 ([facility] ) Work Status: Retired Review of Systems: Constitutional: Negative for fever. HENT: Negative for sore throat. Eyes: Negative for blurred vision. Respiratory: Positive for shortness of breath. Negative for cough. SOB on exertion Cardiovascular: Negative for chest pain. Gastrointestinal: Negative for abdominal pain. Genitourinary: Negative for flank pain. Musculoskeletal: Positive for back pain. Skin: Negative for rash. Neurological: Negative for headaches. Endo/Heme/Allergies: Does not bruise/bleed easily. Psychiatric/Behavioral: Negative for depression. Allergies: No Known Allergies Past Medical History: Diagnosis Date Arthritis Bronchitis GERD (gastroesophageal reflux disease) Hyperlipidemia Pneumonia Sleeping difficulties Vertigo Past Surgical History: Procedure Laterality Date APPENDECTOMY BLADDER NECK SUSPENSION CATARACT EXTRACTION CHOLECYSTECTOMY COLONOSCOPY 01/17/2014 ESOPHAGOGASTRODUODENOSCOPY 07/11/2022 HYSTERECTOMY TUBAL LIGATION UPPER GASTROINTESTINAL ENDOSCOPY Physical Exam: BP 122/86 Pulse 71 Resp 14 Ht 147.3 cm (4' 10 ) Wt 64 kg (141 lb) LMP (LMP Unknown) BMI29.47 kg/m?? Pain Score: 7 Pain Location: Back (Lumbar) Oswestry: 19 PHQ: 0 Neurological The patient is a well-developed, well-nourished female in no acute distress. She has grossly intact CN II-XII. The patient has 5?? of extension, 80?? of flexion, 60?? of rotation of the right, and 60?? of rotation to the left of the cervical spine. There is 5?? of extension and 90?? of flexion of the lumbar spine. The patient has good range of motion of the bilateral shoulders, elbows, hips and knees. The patient has grossly normal muscle bulk, tone and strength throughout. Sensation is grossly intact to lighttouch. The patient has a positive TINO sign on the left which is zaqa-bl-xhubokam. The patient has a positive piriformis stretch bilaterally. The patient has a negative straight leg raise bilaterally. The patient is able to walk on tiptoes and heels. Toes are downgoing. The patient has a mildly antalgic gait and is able to perform tandem gait. Review of Xrays: AP and lateral lumbar spine films with flexion-extension were performed today in clinic and personally reviewed by me. My findings/interpretation are: Retrolisthesis of L1 on L2 is seen. There is good lordosis of the lumbar spine. There is an 8 mm anterior listhesis of L4 on L5 which does not change on dynamic range of motion. There were no pars defects visualized. MRI lumbar spine dated 02/08/2022 was reviewed as was an MRI from 2020. This shows a grade 1 spondylolisthesis of L4 and L5 with left greater than right foraminal stenosis. There is significant facethypertrophy bilaterally with fluid in the facets bilaterally. There is severe lateral recess compression bilaterally. Diagnoses and all orders for this visit: Spondylosis of lumbar region without myelopathy or radiculopathy (Primary) - XR Spine Lumbar Ap Lat Flex Ext min 4 Views Spondylolisthesis at L4-L5 level Assessment & Plan: Ms. Dueñas has a grade 1 spondylolisthesis of L4 on L5 by MRI with slight increase in the spondylolisthesis compared to the study 1999 and increased spondylolisthesis on the upright x-rays compared to the MRI (8 mm versus 3 mm). She has agju-bvsqavw-zseo-right foraminal stenosis and severe lateral recess stenosis bilaterally at this level. We discussed that with her advanced age over 81 she is a increased risk complications and . She had been very active up until age 79 and 1 this [facility] in the past. I will offer her surgery in the form of L4-5 laminectomy and fusionwith instrumentation given her lack of response to extensive conservative treatment. We will perform this at our earliest convenience. This document was created using speech voice recognition software and has not been thoroughly reviewed. Grammatical errors, random word insertions, pronoun errors and incomplete sentences are an occasional consequence of this system due to software limitations, ambient noise and hardware issues. Any formal questions or concerns about content, text or information contained within the body of this dictation should be directly addressed to the provider's office for clarification. Carl Dorado MD, FAANS documented in this encounter Miscellaneous Notes * Assessment & Plan Note - Carl Dorado MD - 08/25/2022 1:32 PM CDT Associated Problem(s): Spondylolisthesis at L4-L5 level Ms. Dueñas has a grade 1 spondylolisthesis of L4 on L5 by MRI with slight increase in the spondylolisthesis compared to the study 1999 and increased spondylolisthesis on the upright x-rays compared to the MRI (8 mm versus 3 mm). She has afop-gjlflqp-atya-right foraminal stenosis and severe lateral recess stenosis bilaterally at this level. We discussed that with her advanced age over 81 she is a increased risk complications and . She had been very active up until age 79 and 1 this [facility] in the past. I will offer her surgery in the form of L4-5 laminectomy and fusionwith instrumentation given her lack of response to extensive conservative treatment. We will perform this at our earliest convenience. documented in this encounter Plan of Treatment Not on file documented as of this encounter Procedures Procedure Name Priority Date/Time Associated Diagnosis Comments XR LUMBAR SPINE AP LAT FLEX EX Schedule Routine, Read Routine (OP Routine) 08/25/2022 1:38 PM CDT Spondylosis of lumbar region without myelopathy or radiculopathy documented in this encounter Results * XR Spine Lumbar Ap Lat Flex Ext min 4 Views (08/25/2022 1:38 PM CDT) Anatomical Region Laterality Modality L-spine N/A Digital Radiogra phy Narrative 08/25/2022 1:59 PM CDT AP and lateral lumbar spine films with flexion-extension were performed today in clinic and personally reviewed by me. ??My findings/interpretation are: Retrolisthesis of L1 on L2 is seen. ??There is good lordosis of the lumbar spine. There is an 8 mm anterior listhesis of L4 on L5 which does not change on dynamic range of motion. There were no pars defects visualized. us Carl Dorado MD IMG XR PROCEDURES Final Resul t documented in this encounter Visit Diagnoses Diagnosis Spondylosis of lumbar region without myelopathy or radiculopathy- Primary Spondylolisthesis at L4-L5 level documented in this encounter Care Teams Culture Media Laboratory Assistant Relationship Specialty Start Date End Date Korey Randolph MD PCP - General Internal Medicine 05/23/17 documented as of this encounter
--- OUTSIDE RECORDS SUMMARY | 2024-04-07 05:37 | XMS_ITS | Encounter Summary ---
Author Organization [facility] Address [address] [place] [address] Care Team Providers Care Plug Drill Operator Name Role Phone Korey Randolph MD Primary Care Provider Encounter Details Date Type Department Care Team (Late st Contact Info) Description 04/21/2022 Orders Only [facility] [address] [place] [id number] Korey Randolph MD [address] [place] [address] [address] Social History Tobacco Use Types Packs/Day Years Used Date Smoking Tobacco: Never Smokeless Tobacco: Never PHQ-2 Answer Date Recorded PHQ-2 Total Score (If total score is 3 or more points, staff should administer the PHQ-9) 0 08/03/2021 Comments No Sex and Gender Information Value Date Recorded Sex Assigned at Not on file 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 Gender Identity Female 08/18/2019 3:36 PM CDT Sexual Orientation Straight 08/18/2019 3: 35 PM CDT documented as of this encounter Plan of Treatment Not on file documented as of this encounter Procedures Procedure Name Priority Date/Time Associated Diagnosis Comments SCAN - RADIOLOGY/IMAGING 04/21/2022 documented in this encounter Results * SCAN - RADIOLOGY/IMAGING (04/21/2022) Anatomical Region Laterality Modality Other us Korey Randolph MD Final R esult documented in this encounter Visit Diagnoses Not on filedocumented in this encounter Care Teams Plug Drill Operator Relationship Specialty Start Date End Date Korey Randolph MD PCP - General Internal Medicine 05/23/17 documented as of this encounter
--- OUTSIDE RECORDS SUMMARY | 2024-04-07 05:37 | XMS_ITS | Encounter Summary ---
Author Organization 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 Gender Identity Female 08/18/2019 3:36 PM CDT Sexual Orientation Straight 08/18/2019 3: 35 PM CDT documented as of this encounter Progress Notes * Mónica Hawkins, UPSETTER - 07/20/2020 11:45 AM CDT PT Daily Treatment Note Meghana Dueñas 1940 Subjective: Pain: 6/10 right hip 3/10 right knee Yina reports her hip and low back pain is increasing She reports she is not able to sleep because of the pain She states while she was taking prednisone all of her symptoms had diminished She states she has an appointment with her orthopedic doctor and plans to discuss her increased symptoms Objective: See treatment Treatment Provided: Moist heat to right ITB and knee. AIR OPERATIONS MANAGER to right ITB and lateral knee Stretching to right hip, piriformis, and hamstrings Kinesiotape to the right ITB* Clam shells x 20 Manual stretching to ITB Assessment: Yina is receptive to the current treatment program She is taking an active role in her HEP Her subjective complaints have increased since her last treatment Plan: Continue with current plan of care Start Time: 11:45 End Time:12:20 Mónica Hawkins PTA documented in this encounter Plan of Treatment Not on file documented as of this encounter Visit Diagnoses Diagnosis Right knee pain, unspecified chronicity- Primary documented in this encounter Care Teams Athletic Equipment Manager Relationship Specialty Start Date End Date Korey Randolph MD PCP - General Internal Medicine 05/23/17 documented as of this encounter
--- OUTSIDE RECORDS SUMMARY | 2024-04-07 05:37 | XMS_ITS | Encounter Summary ---
Author Organization [facility] Address [address] [place] [address] Care Team Providers Care Living Advisor Name Role Phone Korey Randolph MD Primary Care Provider Encounter Details Date Type Department Care Team (Late st Contact Info) Description 08/18/2021 Telephone [facility] [address] [place] [address] Dayton Cast PA [address] [place] [address] [address] [place] [address] Social History Tobacco Use Types Packs/Day Years Used Date Smoking Tobacco: Never Smokeless Tobacco: Never PHQ-2 Answer Date Recorded PHQ-2 Total Score (If total score is 3 or more points, staff should administer the PHQ-9) 0 08/03/2021 Comments No Sex and Gender Information Value Date Recorded Sex Assigned at Not on file 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 Order will be mailed to patient once cosigns the order. * Telephone Encounter - Henny Zuniga MA - 08/18/2021 10:57 AM CDT Pt aware, referrals * Telephone Encounter - Henny Zuniga MA - 08/18/2021 10:56 AM CDT ----- Message from AALIYAH Wiley sent at 08/18/2021 9:49 AM CDT ----- Please inform patient her mammogram was negative. Repeat one year. Scotty documented in this encounter Plan of Treatment Not on file documented as of this encounter Visit Diagnoses Not on filedocumented in this encounter Care Teams Living Advisor Relationship Specialty Start Date End Date Korey Randolph MD PCP - General Internal Medicine 05/23/17 documented as of this encounter
--- OUTSIDE RECORDS SUMMARY | 2024-04-07 05:37 | XMS_ITS | Encounter Summary ---
Author Organization [facility] Address [address] [place] [address] Care Team Providers Care Bread Baker Name Role Phone Korey Randolph MD Primary Care Provider Reason for Referral * Diagnostic Imaging (Routine) - Closed Specialty Diagnoses / Procedures Referred By Contac t Referred To Contact Diagnoses Leg swelling Procedures US VEIN DUPLEX LOWER EXTREMITY LEFT LIMITED, UNILATERAL Korey Randolph MD [address] [place] [address] [address] [facility] [place] [address] Phone: tel: fax: [address] [address] Referral ID Status Reason Start Date Expiration Date Visits Re quested Visits Authorized [id number] Closed 06/30/2022 07/30/2023 1 1 Encounter Details Date Type Department Care Team (Late st Contact Info) Description 06/30/2022 Orders Only [facility] Primary Care at [address] [place] [address] Korey Randolph MD [address] [place] [address] [address] [place] [address] Esophageal stricture (Primary Dx); Leg swelling Social History Tobacco Use Types Packs/Day Years Used Date Smoking Tobacco: Never Smokeless Tobacco: Never PHQ-2 Answer Date Recorded PHQ-2 Total Score (If total score is 3 or more points, staff should administer the PHQ-9) 0 06/30/2022 Comments No Sex and Gender Information Value Date Recorded Sex Assigned at Not on file 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 US VEIN DUPLEX LOWER EXTREMITY LEFT LIMITED, UNILATERAL REASON FOR STUDY: ?? Left lower extremity edema at medial knee and extending over thigh for 3 months. ??Concern for deep vein thrombosis. TECHNIQUE: Duplex scan using the B-mode, spectral Doppler, and color-flow Doppler of the deep venous system of the ??left ??lower extremity was performed. Images stored on PACS. COMPARISON: ?? None FINDINGS: The common femoral, common femoral-saphenous vein confluence, visualized profunda femoral, superficial femoral, and popliteal veins are readily compressible with no intraluminal thrombus on chavis scale images. ??There is normal color and spectral Doppler signal, including augmentation. ??Greater saphenous vein appears patent. Visualized calf veins are patent. IMPRESSION: ??No left lower extremity deep venous thrombosis. THIS IS AN ELECTRONICALLY VERIFIED FINAL REPORT 08/04/2022 3:33 PM - Electronically signed by ??Isaac Monroy M.D. KT: CHARO D: ??08/04/2022 3:33 PM T: ??08/04/2022 3:33 PM Report ID: [id number] Reading Location: ??[id number] Procedure Note Isaac Monroy MD - 08/04/2022 EXAM DESCRIPTION: US VEIN DUPLEX LOWER EXTREMITY LEFT LIMITED,UNILATERAL REASON FOR STUDY: Left lower extremity edema at medial knee andextending over thigh for 3 months. Concern for deep vein thrombosis. TECHNIQUE: Duplex scan using the B-mode, spectral Doppler, and color-flow Doppler of the deep venous system of the left lower extremity wasperformed. Images stored on PACS. COMPARISON: None FINDINGS: The common femoral, common femoral-saphenous vein confluence, visualized profunda femoral, superficial femoral, and popliteal veins are readily compressible with no intraluminal thrombus on chavis scale images. There is normal color and spectral Doppler signal, including augmentation. Greater saphenous vein appears patent. Visualized calf veins are patent. IMPRESSION: No left lower extremity deep venous thrombosis. THIS IS AN ELECTRONICALLY VERIFIED FINAL REPORT 08/04/2022 3:33 PM - Electronically signed by Isaac Monroy M.D. KT: CHARO Report ID: [id number] Reading Location: [place] [address] us Korey Randolph MD IMG US PROCEDURES Final Result documented in this encounter Visit Diagnoses Diagnosis Esophageal stricture- Primary Stricture and stenosis of esophagus Leg swelling Swelling of limb Leg swelling Swelling of limb documented in this encounter Care Teams Bread Baker Relationship Specialty Start Date End Date Korey Randolph MD PCP - General Internal Medicine 05/23/17 documented as of this encounter
--- OUTSIDE RECORDS SUMMARY | 2024-04-07 05:37 | XMS_ITS | Encounter Summary ---
Author Organization [facility] Address [address] [place] [address] Care Team Providers Care Filter Tip Catcher Name Role Phone Korey Randolph MD Primary Care Provider Reason for Referral * Diagnostic Imaging (Routine) - Closed Specialty Diagnoses / Procedures Referred By Angelo t Referred To Contact Diagnoses Leg swelling Procedures US VEIN DUPLEX LOWER EXTREMITY LEFT LIMITED, UNILATERAL Korey Randolph MD [address] [place] [address] DR AMATO [address] [place] [address] Phone: tel: fax: [address] [phone] Referral ID Status Reason Start Date Expiration Date Visits Re quested Visits Authorized [id number] Closed 06/30/2022 07/30/2023 1 1 Reason for Visit * Diagnostic Imaging (Routine) - Closed Specialty Diagnoses / Procedures Referred By Angelo siegel Referred To Contact Diagnoses Leg swelling Procedures US VEIN DUPLEX LOWER EXTREMITY LEFT LIMITED, UNILATERAL Korey Randolph MD [address] [facility] [place] [address] Phone: tel: fax: [address] [phone] Referral ID Status Reason Start Date Expiration Date Visits Re quested Visits Authorized [id number] Closed 06/30/2022 07/30/2023 1 1 Encounter Details Date Type Department Care Team (Latest Contact Info) Description 08/04/2022 1:51 PM CDT - 08/04/2022 11:59 PM CDT Hospital Encounter [facility] [address] [place] [address] Leg swelling Discharge Disposition: Discharge to home or self [...] on file 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 KT: KT Report ID: [id number] Reading Location: [place] [address] us Korey Randolph MD IMG US PROCEDURES Final Result documented in this encounter Visit Diagnoses Diagnosis Leg swelling Swelling of limb documented in this encounter Care Teams Filter Tip Catcher Relationship Specialty Start Date End Date Korey Randolph MD PCP - General Internal Medicine 05/23/17 documented as of this encounter
--- OUTSIDE RECORDS SUMMARY | 2024-04-07 05:37 | XMS_ITS | Encounter Summary ---
Author Organization [facility] Address [address] [place] [address] Care Team Providers Care Heater Room Helper Name Role Phone Korey Randolph MD Primary Care Provider Encounter Details Date Type Department Care Team (Late st Contact Info) Description 06/12/2020 8:15 AM FEEDLOT MANAGER Lab [address] [phone] Korey Randolph MD [address] [place] [address] Mixed hyperlipidemia Discharge Disposition: Discharge to home or self [...] on file Legal Sex Female 11:27 PM FEEDLOT MANAGER Gender Identity Female 08/18/2019 3:36 PM CDT Sexual Orientation Straight 08/18/2019 3: 35 PM CDT documented as of this encounter Discharge Disposition Disposition Code Departure Means Destination Discharge to home or self care documented in this encounter Plan of Treatment Not on file documented as of this encounter Procedures Procedure Name Priority Date/Time Associated Diagnosis Comments EGFR Routine 06/12/2020 8:15 AM FEEDLOT MANAGER Mixed hyperlipidemia LIPID PANEL Routine 06/12/2020 8:15 AM FEEDLOT MANAGER Mixed hyperlipidemia COMPREHENSIVE METABOLIC PANEL Routine 06/12/2020 8:15 AM FEEDLOT MANAGER Mixed hyperlipidemia documented in this encounter Results * eGFR (06/12/2020 8:15 AM FEEDLOT MANAGER) eGFR 87 mL/min/1.7 3 m2 [facility] ([place]) Comment: Interpretive Data Reference Interval Normal ?>/= 90 mL/min/1.73m2 Mildly decreased* ? 60 - 89 mL/min/1.73m2 Mildly to moderately decreased ?45 - 59 mL/min/1.73m2 Moderately to severely decreased ??30 - 44 mL/min/1.73m2 Severely decreased ?15 - 29 mL/min/1.73m2 Kidney Failure ?< 15 ??mL/min/1.73m2 *Relative to young adult level Estimated glomerular filtration rate is determined by the CKD-EPI equation recommended by the National Kidney Foundation (KDIGO 2012 Clinical Practice Guideline for the Evaluation and Management of Chronic Kidney Disease. Kidney Intnl Suppl Apr 2012;3:1). The CKD-EPI equation should not be used for patients with unstable renal function and has not been validated in children and those over 70. Current interpretive data was last reviewed 2020 Blood specimen (specimen) 06/12/2020 8:15 AM FEEDLOT MANAGER 06/12/2020 8:32 AM FEEDLOT MANAGER us Korey Randolph MD LAB BLOOD ORDERABLES Fi nal Result [facility] ([place]) 1 [facility] Department [place] [address] * Lipid panel (06/12/2020 8:15 AM FEEDLOT MANAGER) [facility] Signature Cholesterol 144 30 - 199 mg/dL [facility] TSANG ([place]) [...] Data was last revised on 2017. Triglycerides 64 <=149 mg/dL [facility] ([place]) Comment: Interpretive [...] Data was last revised on 2017. HDL 49 >=40 mg/dL [facility] RE[facility]OL[facility]) Comment: Interpretive Data [...] was last revised on 2017. LDL, calculated 82 <=129 mg/dL [facility] ([place]) Comment: Interpretive [...] last revised on 2017. Chol/HDL ratio 3 [facility] ([place]) Blood specimen (specimen) 06/12/2020 8:15 AM FEEDLOT MANAGER 06/12/2020 8:32 AM FEEDLOT MANAGER us Korey Randolph MD LAB BLOOD ORDERABLES Fi nal Result [facility] ([place]) 1 [facility] Department [place] [address] * (ABNORMAL) Comprehensive metabolic panel (06/12/2020 8:15 AM FEEDLOT MANAGER) Sodium 142 135 - 145 mmol/L [facility] ([place]) Potassium, pl 4.2 3.3 - 4.9 mmol/L [facility] ([place]) Chloride 110 97 - 110 mmol/L [facility] ([place]) CO2 24 22 - 32 mmol/L [facility] ([place]) Anion gap 8 2 - 15 mmol/L [facility] ([place]) BUN 16 8 - 25 mg/dL [facility] ([place]) Creatinine 0.59(L) 0.60 - 1.10 mg/dL [facility] ([place]) Glucose 109 70 - 199 mg/dL [facility] ([place]) [...] 10.3 mg/dL [facility] ([place]) Bilirubin, total 0.2 0.1 - 1.2 mg/dL [facility] ([place]) Protein, pl 6.6 6.5 - 8.5 g/dL [facility] ([place]) Albumin 4.0 3.5 - 5.0 g/dL [facility] ([place]) Alk phos 79 40 - 130 Units/L [facility] ([place]) ALT 32 7 - 45 Units/L [facility] ([place]) AST 19 10 - 45 Units/L [facility] ([place]) Blood specimen (specimen) 06/12/2020 8:15 AM FEEDLOT MANAGER 06/12/2020 8:32 AM FEEDLOT MANAGER us Korey Randolph MD LAB BLOOD ORDERABLES Fi nal Result [facility] ([place]) 1 [facility] Department [place] [address] documented in this encounter Visit Diagnoses Diagnosis Mixed hyperlipidemia documented in this encounter Care Teams Heater Room Helper Relationship Specialty Start Date End Date Korey Randolph MD PCP - General Internal Medicine 05/23/17 documented as of this encounter
--- OUTSIDE RECORDS SUMMARY | 2024-04-07 05:37 | XMS_ITS | Encounter Summary ---
Author Organization [facility] Address [address] [place] [address] Care Team Providers Care Nascar Pit Crew Person Name Role Phone Korey Randolph MD Primary Care Provider Reason for Visit * Reason Comments Preventative Care cpe Encounter Details Date Type Department Care Team (Late st Contact Info) Description 06/29/2021 10:15 AM CDT Office Visit [facility] [address] [facility] [address] [place] [address] Korey Randolph MD [address] [place] [address] [address] [place] [address] Annual physical exam (Primary Dx); BMI 26.0-26.9,adult; Vitamin D deficiency; Stricture and stenosis of esophagus; Spondylosis of lumbar region without myelopathy or radiculopathy; Mixed hyperlipidemia; Bilateral nonexudative age-related macular degeneration, unspecified stage; Gastroesophageal reflux disease without esophagitis Social History Tobacco Use Types Packs/Day Years Used Date Smoking Tobacco: Never Smokeless Tobacco: Never Tobacco Cessation:Counseling Given: Yes PHQ-2 Answer Date Recorded PHQ-2 Total Score (If total score is 3 or more points, staff should administer the PHQ-9) 0 06/29/2021 Comments No Sex and Gender Information Value Date Recorded Sex Assigned at Not on file Legal Sex Female 11:27 PM HVAC COMMERCIAL SALESPERSON Gender Identity Female 08/18/2019 3:36 PM CDT Sexual Orientation Straight 08/18/2019 3: 35 PM CDT documented as of this encounter Last Filed Vital Signs Vital Sign Reading Time Taken Comments Blood Pressure 128/74 06/29/2021 10:03 AM CDT Pulse 72 06/29/2021 10:03 AM CDT Temperature - - Respiratory Rate 16 06/29/2021 10:03 AM CDT Oxygen Saturation - - Inhaled Oxygen Concentration - - Weight 59.9 kg (132 lb) 06/29/2021 10:03 AM CDT Height 149.9 cm (4' 11 ) 06/29/2021 10:03 AM CDT Body Mass Index 26.66 06/29/2021 10:03 AM CDT documented in this encounter Ordered Prescriptions Prescription Sig Dispense Quantity Refills Last Filled Start Date End Date atorvastatin (LIPITOR) 10 mg tablet Take 1 tablet (10 mg total) by mouth daily 90 tablet 3 06/29/2021 3 fluticasone propionate (FLONASE) 50 mcg/actuation nasal spray Administer 2 sprays into each nostril daily 48 g 3 06/29/[address] (PROTONIX) 40 mg EC tablet TAKE 1 TABLET (40 MG) BY MOUTH TWICE DAILY 180 tablet 3 06/29/2021 3 documented in this encounter Progress Notes * Korey Randolph MD - 06/29/2021 10:15 AM CDT Meghana Dueñas is a 81 y.o. female here for Preventative Care (cpe) Medicare Health Risk Assessment has been completed by the patient and scanned into the Media section of the chart. the patient is here for annual preventive exam in follow-up of multiple issues. She has had a healthy year however. She really does not see the GI doctor anymore and she seems to swallow okay. She does see her eye doctor regularly for macular degeneration but she can still see to drive and so forthdoes not do well at night though The patient has bought a new house that is more appropriate for an 81-year-old lady although it is bigger she is selling her current home now and has good family backup Problem List, Past Medical and Surgical History: Patient Active Problem List Diagnosis ??? Gastroesophageal reflux disease without esophagitis ??? Mixed hyperlipidemia ??? Esophageal stricture ??? Macular degeneration, dry [...] SUSPENSION ??? CHOLECYSTECTOMY ??? COLONOSCOPY 01/17/2014 ??? HYSTERECTOMY ??? UPPER GASTROINTESTINAL ENDOSCOPY Family History: History reviewed. No pertinent family history. Social History: Social History Socioeconomic History ??? Marital status: [...] on file Housing Stability: Not on file Allergies: No Known Allergies Medications: Current Outpatient Medications: ??? cholecalciferol (VITAMIN D-3) 1,000 unit capsule, Take by mouth daily , Disp: , Rfl: ??? cyanocobalamin, vitamin B-12, (CYANOCOBALAMIN,VIT B-12,,BULK,) powder, Take 2 capsules by mouthdaily , Disp: , Rfl: ??? multivitamin with minerals tablet, Take 1 tablet by mouth daily , Disp: , Rfl: ??? vitamin E 400 unit capsule, Take 400 Units by mouth daily., Disp: , Rfl: ??? atorvastatin (LIPITOR) 10 mg tablet, Take 1 tablet (10 mg total) by mouth daily, Disp: 90 tablet, Rfl: 3 ??? fluticasone propionate (FLONASE) 50 mcg/actuation nasal spray, Administer 2 sprays into each nostril daily, Disp: 48 g, Rfl: 3 ??? NON FORMULARY, FOR INPATIENT USE,, Take 10 mg by mouth daily Prevagen (Patient not taking: Reported on 06/29/2021), Disp: , Rfl: ??? pantoprazole DR (PROTONIX) 40 mg EC tablet, TAKE 1 TABLET (40 MG) BY MOUTH TWICE DAILY, Disp: 180 tablet, Rfl: 3 Vitals: Vitals BP 128/74 (BP Location: Left arm, Patient Position: Sitting) Pulse 72 Resp 16 Ht 149.9 cm (4' 11 ) Wt 59.9 kg (132 lb) LMP (LMP Unknown) BMI 26.66 kg/m?? Body mass index is 26.66 kg/m??. Exam: Physical Exam Vitals and nursing note reviewed. Constitutional: Appearance: She is well-developed. Comments: Weight is stable blood pressure is [...] sounds are normal. Palpations: Abdomen is soft. Genitourinary: Comments: The breast were normal to inspection palpation bilaterally including the axilla Musculoskeletal: General: Normal range of motion. Cervical back: Normal range of motion and neck supple. Comments: Bones joints normal for age Skin: General: Skin is warm and dry. Comments: No suspicious skin lesions Neurological: Mental Status: She is alert and oriented to person, place, and time. Deep Tendon Reflexes: Reflexes are normal and symmetric. Care Team Providers: Patient Care Team: Korey Randolph MD as PCP - General (Internal Medicine) Primary Pharmacy/DME suppliers: [id number] [place] - [facility] [address] [place] [address] [place] [address] Detection of Cognitive Impairment: The patient does not have cognitive impairment based on direct observation, discussion with patientor family, or review of medical records. Health Maintenance: Health Maintenance Topics with due status: Overdue Topic Date Due Osteoporosis Screening-Bone Density Scan Never done DTaP/Tdap/Td Vaccine Never done Zoster Vaccines Never done Health Maintenance Topics with due status: Due Soon Topic Date Due Breast Cancer Screening-Mammogram 07/16/2021 Health Maintenance Topics with due status: Not Due Topic Last Completion Date Colon Cancer Screening-Colonoscopy 01/17/2014 Fall Risk Assessment 06/29/2021 Depression Screening-PHQ 06/29/2021 Well Visit 65+ 06/29/2021 Health Maintenance Topics with due status: Completed Topic Last Completion Date Pneumococcal vaccine 65+ 02/26/2018 Influenza Vaccine 01/01/2021 Covid-19 Vaccine 01/27/2021 Counseling and Referral of Preventative Services: Opioid Use: No Lifestyle Recommendations Increase Physical Activity, Reduce Weight and Improve Diet Advanced Directive Durable Power of Securities Dealer: Discussed Today: Living Will: Discussed Today: she does not want to limit her care today Assessment and Plan: Diagnoses and all orders for this visit: Annual physical exam (Primary) the self assessment going detail the home environment safe the fall risk is minimal the cognitive and depression screening were normal her speech hearing and swallowing okay nutritional status is fine her vaccines are up-to-date her preventive services are all up-to-date she is due for mammogram soon she wants to keep getting that done even though she is 81 and her next colon is not due for few more years she gets regular eye checkups BMI 26.0-26.9,adult she does a great job keeping her weight under control Vitamin D deficiency urged to get a 1000 units of vitamin-D daily Stricture and stenosis of esophagus no need for dilatation not think she last had 1 a year ago Spondylosis of lumbar region without myelopathy or radiculopathy she does have some back issues but she is very functional nothing surgical Mixed hyperlipidemia - Lipid panel; Future - Comprehensive metabolic panel; Future excellent lipid control will continue her current therapy Bilateral nonexudative age-related macular degeneration, unspecified stage she does get good results from her injection therapy and is watch closely by her specialist Gastroesophageal reflux disease without esophagitis she occasionally has to take a 2nd pill for the pantoprazole but usually just 1 a day no swallowingproblems right now Other orders - pantoprazole DR (PROTONIX) 40 mg EC tablet; TAKE 1 TABLET (40 MG) BY MOUTH TWICE DAILY - fluticasone propionate (FLONASE) 50 mcg/actuation nasal spray; Administer 2 sprays into each nostril daily - atorvastatin (LIPITOR) 10 mg tablet; Take 1 tablet (10 mg total) by mouth daily Patient here for annual Medicare wellness visit and for review of complete medical problem list. All the elements of the plan were completed as outlined by [facility]. A copy of the prevention plan was [...] update and summary of today's office visit. documented in this encounter Plan of Treatment Not on file documented as of this encounter Results * (ABNORMAL) Comprehensive metabolic panel (06/23/2022 8:09 AM CDT) Sodium 144 135 - 145 mmol/L [facility] ([place]) Potassium, pl 4.3 3.3 - 4.9 mmol/L [facility] ([place]) Chloride 110 97 - 110 mmol/L [facility] ([place]) CO2 26 22 - 32 mmol/L [facility] ([place]) Anion gap 9 2 - 15 mmol/L [facility] ([place]) BUN 26(H) 8 - 25 mg/dL [facility] ([place]) Creatinine 0.78 0.60 - 1.10 mg/dL [facility] ([place]) [...] classification and Diagnosis of Diabetes Diabetes Care 2022; 46: S19-S40. Current interpretive data was last revised 2022. Calcium 10.0 8.5 - 10.3 mg/dL [facility] ([place]) Bilirubin, total 0.3 0.1 - 1.2 mg/dL [facility] ([place]) Protein, pl 6.5 6.5 - 8.5 g/dL [facility] ([place]) Albumin 4.1 3.5 - 5.0 g/dL [facility] ([place]) Alk phos 75 40 - 130 Units/L [facility] ([place]) ALT 21 7 - 45 Units/L [facility] ([place]) AST 15 10 - 45 Units/L [facility] ([place]) Blood 06/23/2022 8:09 AM CDT 06/23/2022 8:29 AM CDT Korey Randolph MD LAB BLOOD ORDERABLES Fi nal Result [facility] ([place]) [address] [facility] Department of Laboratories [place], [place] [id number] * Lipid panel (06/23/2022 8:09 AM CDT) Cholesterol 158 30 - 199 mg/dL [facility] ([place]) [...] Data was last revised on 2017. Triglycerides 70 <=149 mg/dL [facility] ([place]) Comment: Interpretive [...] Data was last revised on 2017. HDL 54 >=40 mg/dL [facility] ([place]) Comment: Interpretive Data Ages < or [...] was last revised on 2017. LDL, calculated 90 <=129 mg/dL [facility] ([place]) Comment: Interpretive [...] was last revised on 2017. Non-HDL Cholesterol 104 mg/dL [facility] TS[facility] ([place]) Comment: Interpretive Data [...] Chol/HDL ratio 3 [facility] TSANG ([place]) Blood 06/23/2022 8:09 AM CDT 06/23/2022 8:29 AM CDT us Korey Randolph MD LAB BLOOD ORDERABLES Fi nal Result [facility] ([place]) 1 [facility] Department of Laboratories [place], [place] [id number] documented in this encounter Visit Diagnoses Diagnosis Annual physical exam- Primary Routine general medical examination at a health care facility BMI 26.0-26.9,adult Vitamin D deficiency Stricture and stenosis of esophagus Spondylosis of lumbar region without myelopathy or radiculopathy Mixed hyperlipidemia Bilateral nonexudative age-related macular degeneration, unspecified stage Gastroesophageal reflux disease without esophagitis Esophageal reflux documented in this encounter Discontinued Medications Medication Sig Discontinue Reason Start Date End Da te fluticasone propionate (FLONASE) 50 mcg/actuation nasal spray SHAKE LIQUID AND USE 2 SPRAYS IN EACH NOSTRIL DAILY Reorder 01/13/2020 06/29/[address] (PROTONIX) 40 mg EC tablet TAKE 1 TABLET (40 MG) BY MOUTH TWICE DAILY Reorder 08/05/2020 06/29/2021 atorvastatin (LIPITOR) 10 mg tablet Take 1 tablet (10 mg total) by mouth daily Reorder 12/21/2020 06/29/2021 documented as of this encounter Care Teams Nascar Pit Crew Person Relationship Specialty Start Date End Date Korey Randolph MD PCP - General Internal Medicine 05/23/17 documented as of this encounter
--- OUTSIDE RECORDS SUMMARY | 2024-04-07 05:37 | XMS_ITS | Encounter Summary ---
Author Organization [facility] Address [address] [place] [address] Care Team Providers Care Core Java Engineer Name Role Phone Korey Randolph MD Primary Care Provider Encounter Details Date Type Department Care Team (Late st Contact Info) Description 05/26/2020 Telephone [facility] [address] 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 RT SALES MANAGER * Telephone Encounter - Cali Root - 05/26/2020 9:21 AM CST Pt states she got her first Moderna covid vaccine 2 wks ago in her L arm and has been having on andoff light pains down it since then. She states yesterday she had a twing of jaw pain down to neckin L arm but states did not last long and was not severe. She states she also had alittle pain in middle of chest. She states no pain today besides light pains in arm that go on and off still. She states she was not sob, feel like passing out or vomiting when had the jaw pain yesterday. She is asking advice. Okay for OV since no more jaw/mid chest pain today? Please advise. RT SALES MANAGER documented in this encounter Plan of Treatment Not on file documented as of this encounter Visit Diagnoses Not on filedocumented in this encounter Care Teams Core Java Engineer Relationship Specialty Start Date End Date Korey Randolph MD PCP - General Internal Medicine 05/23/17 documented as of this encounter
--- OUTSIDE RECORDS SUMMARY | 2024-04-07 05:37 | XMS_ITS | Encounter Summary ---
Author Organization [facility] Healthcare Address [address] [place] [address] Care Team Providers Care Call Center Professional Name Role Phone Korey Randolph MD Primary Care Provider Encounter Details Date Type Department Care Team (Late st Contact Info) Description 06/23/2022 8:05 AM CDT [address] [phone] Mixed hyperlipidemia Social History Tobacco Use Types Packs/Day Years Used Date Smoking Tobacco: Never Smokeless Tobacco: Never PHQ-2 Answer Date Recorded PHQ-2 Total Score (If total score is 3 or more points, staff should administer the PHQ-9) 0 08/03/2021 Comments No Sex and Gender Information Value Date Recorded Sex Assigned at Not on file Legal Sex Female 11:27 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 73 m2 CARYN TSANG (JULI) Comment: Interpretive Data Reference Interval Normal [...] interpretive data was last reviewed 2021. Blood 06/23/2022 8:09 AM CDT 06/23/2022 8:29 AM CDT us Korey Randolph MD LAB BLOOD ORDERABLES Fi nal Result CARYN TSANG (JULI) 1 [facility] Department [place] [address] * Lipid panel (06/23/2022 8:09 AM CDT) Cholesterol 158 30 - 199 mg/dL CARYN TSANG (DICKEY) Comment: Interpretive Data Ages < or = [...] on 2017. Triglycerides 70 <=149 mg/dL CARYN REYNOLDS) Comment: Interpretive Data Ages [...] on 2017. HDL 54 >=40 mg/dL CARYN REYNOLDS) Comment: Interpretive Data [...] Fi nal Result [facility] (JULI) 1 [facility] Department [place] [address] * (ABNORMAL) Comprehensive metabolic panel (06/23/2022 8:09 [...] 26(H) 8 - 25 mg/dL [facility] (JULI) Creatinine 0.78 0.60 - 1.10 mg/dL CERNER [...] (JULI) ALT 21 7 - 45 Units/L [facility] (JULI) AST 15 10 - 45 Units/L [facility] (JULI) Blood 06/23/2022 8:09 AM CDT 06/23/2022 8:29 AM CDT us Korey Randolph MD LAB BLOOD ORDERABLES Fi nal Result [facility] (JULI) 1 [facility] Department [place] [address] documented in this encounter Visit Diagnoses Diagnosis Mixed hyperlipidemia documented in this encounter Care Teams Call Center Professional Relationship Specialty Start Date End Date Korey Randolph MD PCP - General Internal Medicine 05/23/17 documented as of this encounter
--- OUTSIDE RECORDS SUMMARY | 2024-04-07 05:37 | XMS_ITS | Encounter Summary ---
Author Organization [facility] Address [address] [place] [address] Care Team Providers Care Paralegals Name Role Phone Korey Randolph MD Primary Care Provider Reason for Visit * Reason Comments Preventative Care Cpe. Leg Swelling Encounter Details Date Type Department Care Team (Late st Contact Info) Description 06/30/2022 3:15 PM CDT Office Visit [facility] Primary Care at [address] [place] [address] Korey Randolph MD [address] [place] [address] [address] [place] [address] Annual physical exam (Primary Dx); Esophageal stricture; Gastroesophageal reflux disease without esophagitis; Mixed hyperlipidemia; Swelling of thigh Social History Tobacco Use Types Packs/Day Years Used Date Smoking Tobacco: Never Smokeless Tobacco: Never Tobacco Cessation:Counseling Given: Yes PHQ-2 Answer Date Recorded PHQ-2 Total Score (If total score is 3 or more points, staff should administer the PHQ-9) 0 06/30/2022 Comments No Sex and Gender Information Value Date Recorded Sex Assigned at Not on file 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 Gender Identity Female 08/18/2019 3:36 PM CDT Sexual Orientation Straight 08/18/2019 3: 35 PM CDT documented as of this encounter Last Filed Vital Signs Vital Sign Reading Time Taken Comments Blood Pressure 114/58 06/30/2022 3:22 PM CDT Pulse 82 06/30/2022 3:22 PM CDT Temperature - - Respiratory Rate - - Oxygen Saturation 96% 06/30/2022 3:22 PM CDT Inhaled Oxygen Concentration - - Weight 63 kg (139 lb) 06/30/2022 3:22 PM CDT Height 147.3 cm (4' 10 ) 06/30/2022 3:22 PM CDT Body Mass Index 29.05 06/30/2022 3:22 PM CDT documented in this encounter Progress Notes * Korey Randolph MD - 06/30/2022 3:15 PM CDT Meghana Dueñas is a 82 y.o. female here for Preventative Care (Cpe.) and Leg Swelling Medicare Health Risk Assessment has been completed by the patient and scanned into the Media section of the chart. The patient is here for her annual Medicare wellness visit apparently she complained of some leg swelling on just 1 leg. Is actually in the distal thigh medially and it is rubbing on the other leg she is very bothersome to her no past history of DVT and no recent long car or airplane trips now she is noticing that her swallowing is getting bad again she had a previous dilatation and takes her Protonix faithfully pretty pills especially gets stuck in her had to give her the Heimlich maneuver few weeks ago when a pill got stuck Problem List, Past Medical and Surgical History: Patient Active Problem List Diagnosis Gastroesophageal reflux disease without esophagitis Hyperlipidemia Esophageal stricture Macular degeneration, dry Vitamin D deficiency Spondylosis of lumbar region without myelopathy or radiculopathy Intermittent epigastric abdominal pain LLQ pain Stricture and stenosis of esophagus Gastroesophageal reflux disease Abdominal pain, epigastric Small bowel obstruction, partial (CMS/HCC) (HCC) Past Medical History: Diagnosis Date GERD (gastroesophageal reflux disease) Hyperlipidemia Past Surgical History: Procedure Laterality Date APPENDECTOMY BLADDER NECK SUSPENSION CHOLECYSTECTOMY COLONOSCOPY 01/17/2014 HYSTERECTOMY UPPER GASTROINTESTINAL ENDOSCOPY Family History: History reviewed. No pertinent family history. Social History: Social History Tobacco Use Smoking status: Never Smokeless tobacco: Never Substance and Sexual Activity Drug use: None Sexual activity: None Alcohol Use: Not on file Allergies: No Known Allergies Medications: Current Outpatient Medications: atorvastatin (LIPITOR) 10 mg tablet, Take 1 tablet (10 mg total) by mouth daily, Disp: 90 tablet, Rfl: 3 cholecalciferol (VITAMIN D-3) 1,000 unit capsule, Take by mouth daily , Disp: , Rfl: cyanocobalamin, vitamin B-12, (CYANOCOBALAMIN,VIT B-12,,BULK,) powder, Take 2 capsules by mouth daily , Disp: , Rfl: fluticasone propionate (FLONASE) 50 mcg/actuation nasal spray, SHAKE LIQUID AND USE 2 SPRAYS IN EACH NOSTRIL DAILY, Disp: 48 g, Rfl: 3 meclizine (ANTIVERT) 25 mg tablet, Take 1 tablet (25 mg total) by mouth 3 (three) times a day as needed for dizziness, Disp: 30 tablet, Rfl: 11 multivitamin with minerals tablet, Take 1 tablet by mouth daily, Disp: , Rfl: NON FORMULARY, FOR INPATIENT USE,, Take 10 mg by mouth daily Prevagen, Disp: , Rfl: pantoprazole DR (PROTONIX) 40 mg EC tablet, TAKE 1 TABLET(40 MG) BY MOUTH TWICE DAILY, Disp: 180 tablet, Rfl: 3 ropivacaine (NAROPIN) 5 mg/mL (0.5 %) injection, 4 mL (20 mg total), Disp: , Rfl: vitamin E 400 unit capsule, Take 1 capsule (400 Units total) by mouth daily, Disp: , Rfl: benzonatate (TESSALON) 200 mg capsule, Take 1 capsule (200 mg total) by mouth 3 (three) times a dayas needed for cough (Patient not taking: Reported on 02/18/2022), Disp: 90 capsule, Rfl: 0 Vitals: Vitals BP 114/58 (BP Location: Left arm, Patient Position: Sitting) Pulse 82 Ht 147.3 cm (4' 10 ) Wt 63 kg (139 lb) LMP (LMP Unknown) SpO2 96% BMI 29.05 kg/m?? Body mass index is 29.05 kg/m??. Exam: Physical Exam Vitals and nursing note reviewed. Constitutional: Appearance: Normal appearance. She is well-developed and normal weight. Comments: Weight is up 9 lb from last year HENT: Head: Normocephalic and atraumatic. Right Ear: Tympanic membrane and external ear normal. Left Ear: Tympanic membrane and external ear normal. Nose: Nose normal. Mouth/Throat: Mouth: Mucous membranes are moist. Eyes: Extraocular Movements: Extraocular movements intact. Conjunctiva/sclera: Conjunctivae normal. Pupils: Pupils are equal, round, and reactive to light. Neck: Comments: No lymphadenopathy thyroid gland normal carotids 2+ without bruit Cardiovascular: Rate and Rhythm: Normal rate and regular rhythm. Heart sounds: Normal heart sounds. Pulmonary: Breath sounds: Normal breath sounds. Abdominal: General: Bowel sounds are normal. Palpations: Abdomen is soft. Genitourinary: Comments: Breast were normal to inspection palpation bilaterally including the axilla Musculoskeletal: General: Normal range of motion. Cervical back: Normal range of motion and neck supple. Comments: Minor arthritis changes in the large joints consistent with age Curious swelling of the left distal thigh medially very smooth and fleshy almost like a lipoma but it is very unusual fighting indeed we should take an ultrasound of the lesion Skin: General: Skin is warm and dry. Comments: No suspicious skin lesion Neurological: Mental Status: She is alert and oriented to person, place, and time. Deep Tendon Reflexes: Reflexes are normal and symmetric. Psychiatric: Mood and Affect: Mood normal. Care Team Providers: Patient Care Team: Korey Randolph MD as PCP - General (Internal Medicine) Primary Pharmacy/DME suppliers: [id number] - [place] - [address] [place] [address] [place] [address] Detection of Cognitive Impairment: The patient does not have cognitive impairment based on direct observation, discussion with patientor family, or review of medical records. Health Maintenance: Health Maintenance Topics with due status: Overdue Topic Date Due Osteoporosis Screening-Bone Density Scan Never done DTaP/Tdap/Td Vaccine Never done Zoster Vaccines Never done Health Maintenance Topics with due status: Due On Topic Date Due Well Visit 65+ 06/29/2022 Health Maintenance Topics with due status: Not Due Topic Last Completion Date Colon Cancer Screening-Colonoscopy 01/17/2014 Breast Cancer Screening-Mammogram 08/17/2021 Fall Risk Assessment 06/30/2022 Depression Screening-PHQ 06/30/2022 Health Maintenance Topics with due status: Completed Topic Last Completion Date Pneumococcal vaccine 65+ 02/26/2018 Covid-19 Vaccine 02/11/2022 Influenza Vaccine 02/11/2022 Health Maintenance Topics with due status: Discontinued Topic Date Due Colon Cancer Screening-DNA Stool Discontinued Colon Cancer Screening-CT Colonography Discontinued Colon Cancer Screening-FIT Discontinued Colon Cancer Screening-Sigmoidoscopy Discontinued Colon Cancer Screening-FOBT Discontinued Counseling and Referral of Preventative Services: Lifestyle Recommendations Increase Physical Activity, Reduce Weight, and Improve Diet Advanced Directive Durable Power of Chemical Detection Expert: Discussed Today: Living Will: Discussed Today: Does not want to limit her care today Assessment and Plan: Diagnoses and all orders for this visit: Annual physical exam (Primary) The self assessment going detail the home environment safe the fall risk was minimal cognitive and depression screening were good speech hearing and swallowing okay except for her esophageal stricture problems she had have a Heimlich maneuver recently by her her speech was okay her nutritional status is okay but she did gained a fair amount of weight this last year her vaccines are okay for COVID and pneumonia and flu a tetanus shot would be due when indicated and also the shingles shotwould be indicated she is beyond the age of screening for colon and breast cancer Esophageal stricture I encouraged her to get an EGD and dilatation for this serious problem continue PPI therapy Gastroesophageal reflux disease without esophagitis She has some serious swallowing problems and her had to give her the Heimlich maneuver recently pretty let us get an EGD and dilatation Mixed hyperlipidemia - Comprehensive metabolic panel; Future - Lipid panel; Future The LDL was 90 the HDL was 54 continue current therapy and low-fat diet Left thigh swelling Because of its unusual character and fairly sudden onset I am going to ultrasound this lesion I am thinking either a lipoma or a venous structure Patient here for annual Medicare wellness visit [...] medical examination at a health care facility Esophageal stricture Stricture and stenosis of esophagus Gastroesophageal reflux disease without esophagitis Esophageal reflux Mixed hyperlipidemia Swelling of thigh documented in this encounter Care Teams Paralegals Relationship Specialty Start Date End Date Korey Randolph MD PCP - General Internal Medicine 05/23/17 documented as of this encounter
--- OUTSIDE RECORDS SUMMARY | 2024-04-07 05:37 | XMS_ITS | Encounter Summary ---
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 GENERAL NEUROLOGIST to right ITB and lateral knee Stretching to right hip, piriformis, and hamstrings Kinesiotape to the right ITB* Clam shells x 20 Manual stretching to ITB Assessment: Yina is receptive to the current treatment program She is taking an active role in her HEP Her subjective complaints have increased since her last treatment Plan: Continue with current plan of care Start Time: 1214 End Time:1245 Carl Anderson PT documented in this encounter Plan of Treatment Not on file documented as of this encounter Visit Diagnoses Diagnosis Right knee pain, unspecified chronicity- Primary documented in this encounter Care Teams Nurse Administrator Relationship Specialty Start Date End Date Korey Randolph MD PCP - General Internal Medicine 05/23/17 documented as of this encounter
--- OUTSIDE RECORDS SUMMARY | 2024-04-07 05:37 | XMS_ITS | Encounter Summary ---
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 Gender Identity Female 08/18/2019 3:36 PM CDT Sexual Orientation Straight 08/18/2019 3: 35 PM CDT documented as of this encounter Discharge Disposition Disposition Code Departure Means Destination Discharge to home or self care documented in this encounter Plan of Treatment Not on file documented as of this encounter Procedures Procedure Name Priority Date/Time Associated Diagnosis Comments EGFR Routine 06/19/2021 9:24 AM CDT Mixed hyperlipidemia LIPID PANEL Routine 06/19/2021 9:24 AM CDT Mixed hyperlipidemia COMPREHENSIVE METABOLIC PANEL Routine 06/19/2021 9:24 AM CDT Mixed hyperlipidemia documented in this encounter Results * eGFR (06/19/2021 9:24 AM CDT) eGFR 90 mL/min/1. 73 m2 CARYN TSANG (JULI) Comment: [...] interpretive data was last reviewed 2021. Blood 06/19/2021 9:24 AM CDT 06/19/2021 9:47 AM CDT us Korey Randolph MD LAB BLOOD ORDERABLES Fi nal Result CARYN TSANG ([place]) 1 [facility] [place] [address] * Lipid panel (06/19/2021 9:24 AM CDT) [facility] Cholesterol 145 30 - 199 mg/dL CARYN [...] ratio 3 [facility] (JULI) Blood 06/19/2021 9:24 AM CDT 06/19/2021 9:47 AM CDT Korey Randolph MD LAB BLOOD ORDERABLES Fi nal Result [facility] (JULI) 1 [facility] [place] [address] * Comprehensive metabolic panel (06/19/2021 9:24 AM [...] Fi nal Result [facility] (JULI) 1 [facility] [place] [address] documented in this encounter Visit Diagnoses Diagnosis Mixed hyperlipidemia documented in this encounter Care Teams Blending Plant Operator Relationship Specialty Start Date End Date Korey Randolph MD PCP - General Internal Medicine 05/23/17 documented as of this encounter
--- OUTSIDE RECORDS SUMMARY | 2024-04-07 05:37 | XMS_ITS | Encounter Summary ---
Author Organization [facility] Healthcare Address [address] [place] [address] Care Team Providers Care Commanding Officer Garage Name Role Phone Korey Randolph MD Primary Care Provider Reason for Visit * Reason Comments PT Treatment Encounter Details Date Type Department Care Team (Late st Contact Info) Description 07/15/2020 12:15 PM CDT Therapy 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 ROCK CRUSHING MACHINE OPERATOR to right ITB and lateral knee Stretching to right hip, piriformis, and hamstrings Kinesiotape to the right ITB Clam shells x 20 Manual stretching to ITB Assessment: Yina is receptive to the current treatment program She is taking an active role in her HEP Plan: Continue with current plan of care Start Time: 12:15 End Time:12:50 Mónica Hawkins PTA documented in this encounter Plan of Treatment Not on file documented as of this encounter Visit Diagnoses Diagnosis Right knee pain, unspecified chronicity- Primary documented in this encounter Care Teams Commanding Officer Garage Relationship Specialty Start Date End Date Korey Randolph MD PCP - General Internal Medicine 05/23/17 documented as of this encounter
--- OUTSIDE RECORDS SUMMARY | 2024-04-07 05:37 | XMS_ITS | Encounter Summary ---
Author Organization [facility] Address [address] [place] [address] Care Team Providers Care Cemetery Workers Supervisor Name Role Phone Korey Randolph MD Primary Care Provider Reason for Visit * Diagnostic Imaging (Routine) - Closed Specialty Diagnoses / Procedures Referred By Contac t Referred To Contact Diagnoses Spondylosis of lumbar region without myelopathy or radiculopathy Procedures XR Spine Lumbar Ap Lat Flex Ext min 4 Views Carl Dorado MD Phone: tel: fax: [facility] Referral ID Status Reason Start Date Expiration Date Visits Re quested Visits Authorized [id number] Closed 08/25/2022 09/24/2023 1 1 Encounter Details Date Type Department Care Team (Late st Contact Info) Description 08/25/2022 1:15 PM CDT Ancillary Procedure [facility] [place] [address] [address] Social History Tobacco Use Types Packs/Day Years [...] on file 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
--- OUTSIDE RECORDS SUMMARY | 2024-04-07 05:37 | XMS_ITS | Encounter Summary ---
Author Organization [facility] Address [address] [place] [address] Care Team Providers Care Computer Analyst Name Role Phone Korey Randolph MD Primary Care Provider Reason for Visit * Reason Comments Nasal Congestion Nasal congestion and cough for 3-4 weeks. Sx began Dec 20 during a trip to [place]. Pt experiencing ear fullness for 1 week. NyQUil and Coricidin for her Sx. Pt is vaccinated. Encounter Details Date Type Department Care Team (Late st Contact Info) Description 01/09/2022 3:30 PM CDT Office Visit [facility] [address] [place] [phone] Vivi Carson NP [address] [place] [address] Acute non-recurrent maxillary sinusitis (Primary Dx); Nasal congestion; Suspected COVID-19 virus infection Social History Tobacco Use Types Packs/Day Years Used Date Smoking Tobacco: Never Smokeless Tobacco: Never PHQ-2 Answer Date Recorded PHQ-2 Total Score (If total score is 3 or more points, staff should administer the PHQ-9) 0 08/03/2021 Comments No Sex and Gender Information Value Date Recorded Sex Assigned at Not on file 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 Gender Identity Female 08/18/2019 3:36 PM CDT Sexual Orientation Straight 08/18/2019 3: 35 PM CDT documented as of this encounter Last Filed Vital Signs Vital Sign Reading Time Taken Comments Blood Pressure 134/60 01/09/2022 3:06 PM CDT Pulse 68 01/09/2022 3:06 PM CDT Temperature 36.4 ??C (97.6 ??F) 01/09/2022 3:06 PM CD T Respiratory Rate 18 01/09/2022 3:06 PM CDT Oxygen Saturation 97% 01/09/2022 3:06 PM CDT Inhaled Oxygen Concentration - - Weight 59 kg (130 lb) 01/09/2022 3:06 PM CDT Height 149.9 cm (4' 11 ) 01/09/2022 3:06 PM CDT Body Mass Index 26.26 01/09/2022 3:06 PM CDT documented in this encounter Patient Instructions * Patient Instructions* Vivi Carson NP - 01/09/2022 3:30 PM CDT Research has proven that unless you are running a fever, sinus infections are typically viral untildays 9-10. Finish the entire antibiotic prescription. Take this [...] same utensils or glass, and use hand taper machine before touching people or common surfaces. -Apply warm packs to face to facilitate sinus drainage. - Use cool mist humidifier in bedroom at night. -Increase fluid consumption and Rest. -Follow up with your PCP in 1 week or sooner if symptoms worsen or are not improving as planned. -If you experience any shortness of breath, chest pain, or high fever >101, go to the Emergency Room. documented in this encounter Ordered Prescriptions Prescription Sig Dispense Quantity Refills Last Filled Start Date End Date benzonatate (TESSALON) 200 mg capsuleIndications :Acute non-recurrent maxillary sinusitis Take 1 capsule (200 mg total) by mouth 3 (three) times a day as needed for cough 90 capsule 01/09/2022 3 amoxicillin-clavul anate (Augmentin) 875-125 mg per tabletIndications: Acute non-recurrent maxillary sinusitis Take 1 tablet by mouth 2 (two) times a day for 10 days 20 tablet 01/09/2022 2 documented in this encounter Progress Notes * Vivi Carson NP - 01/09/2022 3:30 PM CDT Images from the original note were not included. Subjective/Objective Patient ID: Meghana Dueñas is a 81 y.o. female. Chief Complaint Nasal Congestion (Nasal congestion and cough for 3-4 weeks. Sx began Dec 20 during a trip to [place]. Pt experiencing ear fullness for 1 week. NyQUil and Coricidin for her Sx. Pt is vaccinated.) Patient presents to the convenient care clinic with a 3-4 week history of nasal congestion and cough. She has also been experiencing bilateral ear fullness for the past week. She has been taking NyQuil and Mucinex D for her symptoms. Review of Systems Constitutional: Negative for activity change, appetite change, fatigue and fever. HENT: Positive for congestion and ear pain (fullness). Negative for ear discharge, postnasal drip, rhinorrhea, sinus pressure and sore throat. Eyes: Negative for discharge. Respiratory: Positive for cough. Negative for shortness of breath. Gastrointestinal: Negative for diarrhea, nausea and vomiting. Musculoskeletal: Negative for myalgias. Skin: Negative for rash. Neurological: Negative for headaches. Hematological: Negative for adenopathy. Physical Exam Vitals reviewed. Constitutional: General: She is not in acute distress. Appearance: Normal appearance. She is well-developed. She is not ill-appearing or toxic-appearing. HENT: Head: Normocephalic. Right Ear: Tympanic membrane, ear canal and external ear normal. Left Ear: Tympanic membrane, ear canal and external ear normal. Nose: Congestion present. No rhinorrhea. Right Sinus: No maxillary sinus tenderness or frontal sinus tenderness. Left Sinus: No maxillary sinus tenderness or frontal sinus tenderness. Mouth/Throat: Lips: [place]. Mouth: Mucous membranes are moist. Pharynx: Oropharynx is clear. Eyes: General: Right eye: No discharge. Left eye: No discharge. Conjunctiva/sclera: Conjunctivae normal. Cardiovascular: Rate and Rhythm: Normal rate and regular rhythm. Pulmonary: Effort: Pulmonary effort is normal. No respiratory distress. Breath sounds: Normal breath sounds and air entry. No wheezing. Abdominal: Tenderness: There is no abdominal tenderness. Musculoskeletal: General: Normal range of motion. Cervical back: Neck supple. Lymphadenopathy: Head: Right side of head: No tonsillar adenopathy. Left side of head: No tonsillar adenopathy. Cervical: No cervical adenopathy. Skin: General: Skin is warm and dry. Findings: No rash. Neurological: Mental Status: She is alert and oriented to person, place, and time. Mental status is at baseline. Psychiatric: Attention and Perception: Attention normal. Mood and Affect: Mood normal. Behavior: Behavior normal. Behavior is cooperative. Thought Content: Thought content normal. Judgment: Judgment normal. Vitals: 01/09/22 1506 BP: 134/60 BP Location: Left arm Patient Position: Sitting Pulse: 68 Resp: 18 Temp: 36.4 ??C (97.6 ??F) TempSrc: Temporal SpO2: 97% Weight: 59 kg (130 lb) Height: 149.9 cm (4' 11 ) Assessment/Plan Antibiotics as prescribed Tessalon for cough Follow up with PCP if symptoms worsen or persist Reviewed ER precautions Diagnoses and all orders for this visit: Acute non-recurrent maxillary sinusitis (Primary) - amoxicillin-clavulanate (Augmentin) 875-125 mg per tablet; Take 1 tablet by mouth 2 (two) times aday for 10 days - benzonatate (TESSALON) 200 mg capsule; Take 1 capsule (200 mg total) by mouth 3 (three) times a day as needed for cough Nasal congestion - POC Influenza A/B, COVID-19 antigen Suspected COVID-19 virus infection - POC Influenza A/B, COVID-19 antigen Recent Results (from the past 4 hour(s)) POC Influenza A/B, COVID-19 antigen Collection Time: 01/09/22 3:40 PM Result Value Ref Range Inflenza A Ag, POC Negative Negative Influenza B Ag, POC Negative Negative COVID-19 Ag POC Presumptive Negative Presumptive Negative, Invalid Patient Instructions Research has proven that unless you are running a fever, sinus infections are typically viral untildays 9-10. Finish the entire antibiotic prescription. Take this [...] same utensils or glass, and use hand taper machine before touching people or common surfaces. -Apply warm packs to face to facilitate sinus drainage. - Use cool mist humidifier in bedroom at night. -Increase fluid consumption and Rest. -Follow up with your PCP in 1 week or sooner if symptoms worsen or are not improving as planned. -If you experience any shortness of breath, chest pain, or high fever >101, go to the Emergency Room. Disposition Treatment plan including expectations, follow up, and return precautions discussed with patient/parent, verbalizes understanding. Medication dosage, use, and potential adverse reactions discussed with patient/parent. Advised to follow up with PCP if symptoms do not resolve as expected or sooner if condition worsens. Signs/symptoms warranting ER evaluation reviewed. Patient and/or guardian was given an opportunity to ask questions, questions answered. Vivi Carson NP Cosigned by Alec Banks MD at 01/27/2022 8:34 AM CDT documented in this encounter Plan of Treatment Not on file documented as of this encounter Procedures Procedure Name Priority Date/Time Associated Diagnosis Comments POC INFLUENZA A/B, COVID-19 ANTIGEN Routine 01/09/2022 3:40 PM CDT Nasal congestion Suspected COVID-19 virus infection documented in this encounter Results * POC Influenza A/B, COVID-19 antigen (01/09/2022 3:40 PM CDT) Influenza A Ag, POC Negative Negative [facility] Influenza B Ag, POC Negative Negative [facility] COVID-19 Ag POC Presumptive Negative Presumptive Negative, Invalid [facility] Nasal 01/09/2022 3:40 PM CDT Vivi Carson NP POINT OF CARE TEST ORDERABLES Fi nal Result [facility] [address] [place] [address] documented in this encounter Visit Diagnoses Diagnosis Acute non-recurrent maxillary sinusitis- Primary Nasal congestion Other diseases of nasal cavity and sinuses Suspected COVID-19 virus infection documented in this encounter Historical Medications * This list may reflect changes made after this encounter. ropivacaine (NAROPIN) 5 mg/mL (0.5 %) injection 4 mL (20 mg total) 09/21/2022 added in this encounter Additional Health Concerns Infection Onset Date Last Indicated Resolved Time COVID: Suspected 01/09/2022 01/09/2022 01/09/2022 3:41 PM CDT documented as of this encounter Care Teams Computer Analyst Relationship Specialty Start Date End Date Korey Randolph MD PCP - General Internal Medicine 05/23/17 documented as of this encounter
--- OUTSIDE RECORDS SUMMARY | 2024-04-07 05:37 | XMS_ITS | Encounter Summary ---
Author Organization [facility] Address [address] [place] [address] Care Team Providers Care Emergency Care Attendant Name Role Phone Korey Randolph MD Primary Care Provider Encounter Details Date Type Department Care Team (Late st Contact Info) Description 08/08/2022 Orders Only [facility] Primary Care at [address] [place] [address] Korey Randolph MD [address] [place] [address] [address] [place] [address] Swelling of knee (Primary Dx) Social History Tobacco Use Types [...] on file 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
--- OUTSIDE RECORDS SUMMARY | 2024-04-07 05:37 | XMS_ITS | Encounter Summary ---
Author Organization [facility] Address [address] [place] [address] Care Team Providers Care Green Inspector Name Role Phone Korey Randolph MD Primary Care Provider Reason for Visit * Reason Onset Date Comments Medical Question/Miscellaneous 07/05/2022 Encounter Details Date Type Department Care Team (Late st Contact Info) Description 07/05/2022 Telephone [facility] Primary Care at [address] [place] [address] Korey Randolph MD [address] [place] [address] [address] [place] [address] Medical Question/Miscellaneous Social History Tobacco Use Types Packs/Day Years Used Date Smoking Tobacco: Never Smokeless Tobacco: Never PHQ-2 Answer Date Recorded PHQ-2 Total Score (If total score is 3 or more points, staff should administer the PHQ-9) 0 06/30/2022 Comments No Sex and Gender Information Value Date Recorded Sex Assigned at Not on file 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 adb * Telephone Encounter - Nasreen Malloy - 07/05/2022 9:43 AM CDT Medical Question/Miscellaneous Caller???s Concern: Patient is calling in stating she was told she would hear back about the sonogram of her leg to be done but patient states she has not heard anything. Please advise. Caller???s Call back #: [phone] Does message need to be routed?Yes-Action Needed documented in this encounter Plan of Treatment Not on file documented as of this encounter Visit Diagnoses Not on filedocumented in this encounter Care Teams Green Inspector Relationship Specialty Start Date End Date Korey Randolph MD PCP - General Internal Medicine 05/23/17 documented as of this encounter
--- OUTSIDE RECORDS SUMMARY | 2024-04-07 05:37 | XMS_ITS | Encounter Summary ---
Author Organization [facility] Address [address] [place] [address] Care Team Providers Care Blacksmith Assistant Name Role Phone Korey Randolph MD Primary Care Provider Reason for Visit * Auth/Cert (Routine) Specialty Diagnoses / Procedures Referred By Angelo t Referred To Contact Diagnoses Esophageal stricture Esophageal stricture [K22.2] Procedures IN ESOPHAGOGASTRODUODENOSCOPY TRANSORAL DIAGNOSTIC ESOPHAGOGASTRODUODENOSCOPY Referral ID Status Reason Start Date Expiration Date Visits Re quested Visits Authorized [id number] 1 1 Encounter Details Date Type Department Care Team (Latest Contact Info) Description 07/11/2022 11:03 AM CDT - 07/11/2022 1:43 PM CDT Hospital Encounter [facility] [address] [place] [address] Dennis Ross MD [address] [place] [address] [address] [place] [address] Discharge Disposition: Discharge to home or self [...] you are drinking? Patient does not drink 04/10/202 3 Q3: How often do you have si x or more drinks on one occasion? 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 Last Dose [...] Medication protocol when under care of a COMPOSITE LAMINATOR Planned anesthesia: General/TIVA Induction: Induction: intravenous. Postoperative Plan: No plan for postoperative opioid use. No postoperative mechanical ventilation intended. Patient's planned disposition post procedure is Outpatient. Informed Consent: Discussed plan with attending and COMPOSITE LAMINATOR. Anesthesia plan and risks discussed with patient. [...] - 07/11/2022 11:06 AM CDTAssociated Order(s): EGD [facility] Patient Name: Meghana Dueñas Procedure Date: 07/11/2022 11:06 AM Date of : 1940 Admit Type: Outpatient Age: 82 Gender: Female Attending MD: Dennis Ross M.D. Room: [facility]COPY ROOM 2 Note Status: Finalized Patient [...] passed under direct vision. The Endoscope GIF-H190 [id number] was introduced through the mouth, and advanced [...] 11:06 AM Procedure Code(s): --- Professional --- 87172, Esophagogastroduodenoscopy, flexible, transoral; with transendoscopic balloon dilation of esophagus (less than 30 mm diameter) --- Technical --- 51183, Esophagogastroduodenoscopy, flexible, transoral; with transendoscopic balloon dilation of esophagus (less than 30 mm diameter) Diagnosis Code(s): --- Professional --- R13.10, Dysphagia, unspecified K44.9, Diaphragmatic hernia without obstruction or gangrene K22.4, Dyskinesia of esophagus --- Technical --- R13.10, Dysphagia, unspecified K44.9, Diaphragmatic hernia without obstruction or gangrene K22.4, Dyskinesia of esophagus CPT copyright 2020 [employer]. All rights reserved. The codes documented in this report are preliminary and upon steamer gum candy review may be revised to meet current compliance requirements. Recognized by the [employer] Society [employer] for promoting quality [...] Ross MD - 07/11/2022 11:06 AM CDT [facility] Patient Name: Meghana Dueñas Procedure Date: 07/11/2022 11:06 AM Date of : 1940 Admit Type: Outpatient Age: 82 Gender: Female Attending MD: Dennis Ross M.D. Room: [facility]COPY ROOM 2 Note Status: Finalized Patient [...] passed under direct vision. The Endoscope GIF-H190 [id number] was introduced through the mouth, and advanced [...] 11:06 AM Procedure Code(s): --- Professional --- 48736, Esophagogastroduodenoscopy, flexible, transoral; with transendoscopic balloon dilation of esophagus (less than 30 mmdiameter) --- Technical --- 24667, Esophagogastroduodenoscopy, flexible, transoral; with transendoscopic balloon dilation of esophagus (less than 30 mmdiameter) Diagnosis Code(s): --- Professional --- R13.10, Dysphagia, unspecified K44.9, Diaphragmatic hernia without obstruction or gangrene K22.4, Dyskinesia of esophagus --- Technical --- R13.10, Dysphagia, unspecified K44.9, Diaphragmatic hernia without obstruction or gangrene K22.4, Dyskinesia of esophagus CPT copyright 2020 [employer]. All rights reserved. The codes documented in this report are preliminary and upon steamer gum candy reviewmay be revised to meet current compliance requirements. Recognized by the [employer] Society [employer] for promoting quality [...] 1242 (New Bag - Prov ider: Veronica Gonzalez RN)1248 (Rate/Dose Verify - Provider: Alvarado Billy [...] 07/11/2022 documented in this encounter Care Teams Blacksmith Assistant Relationship Specialty Start Date End Date Korey Randolph MD PCP - General Internal Medicine 05/23/17 documented as of this encounter
--- OUTSIDE RECORDS SUMMARY | 2024-04-07 05:37 | XMS_ITS | Encounter Summary ---
Author Organization [facility] Address [address] [place] [address] Care Team Providers Care Commissioner Public Works Name Role Phone Korey Randolph MD Primary Care Provider Reason for Referral * Diagnostic Imaging (Routine) - Closed Specialty Diagnoses / Procedures Referred By Angelo siegel Referred To Contact Diagnoses Visit for screening mammogram Procedures Screening Mammogram Bilateral W Korey Styles MD [address] [place] [address] [address] [place] [address] Phone: tel: fax: External Order Referral ID Status Reason Start Date Expiration Date Visits Re quested Visits Authorized [id number] Closed 08/18/2021 09/17/2022 1 1 Encounter Details Date Type Department Care Team (Late st Contact Info) Description 08/18/2021 Orders Only [facility] [address] [place] [address] Korey Randolph MD [address] [place] [address] [address] [place] [address] Visit for screening mammogram (Primary [...] on file 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 Gender Identity Female 08/18/2019 3:36 PM CDT Sexual Orientation Straight 08/18/2019 3: 35 PM CDT documented as of this encounter Plan of Treatment Scheduled Orders Name Type Priority Associated Diagnoses Orde r Schedule Screening Mammogram Bilateral W Willie Imaging Schedule Routine, Read Routine (OP Routine) Visit for screening mammogram Expected: 08/18/2022, Expires: 02/18/2023 documented as of this encounter Procedures Procedure Name Priority Date/Time Associated Diagnosis Comments SCREENING MAMMOGRAM BILATERAL W WILLIE Schedule Routine, Read Routine (OP Routine) 08/17/2021 Visit for screening mammogram documented in this encounter Results * Screening Mammogram Bilateral W Willie (08/17/2021) Anatomical Region Laterality Modality Breast Bilateral Mammography us Korey Randolph MD IMG MAMMO PROCEDURES Fi nal Result documented in this encounter Visit Diagnoses Diagnosis Visit for screening mammogram- Primary documented in this encounter Care Teams Commissioner Public Works Relationship Specialty Start Date End Date Korey Randolph MD PCP - General Internal Medicine 05/23/17 documented as of this encounter
--- OUTSIDE RECORDS SUMMARY | 2024-04-07 05:38 | XMS_ITS | Encounter Summary ---
Author Organization [facility] Address [address] [place] [address] Care Team Providers Care Automobile Mechanic Radiator Name Role Phone Korey Randolph MD Primary Care Provider Reason for Visit * Reason Comments Hospital Follow Up blockage of small intestine patient was treated at [facility] for issue, patient states her issues have improved Encounter Details Date Type Department Care Team (Latest Contact Info) Description 04/28/2020 1:15 PM PIPE FITTER SOFT COPPER Office Visit [facility] Gastroenterology at [address] [place] [address] Dennis Ross MD [address] [place] [address] [address] [place] [address] Small bowel obstruction, partial (CMS/HCC) (Primary Dx) Social History Tobacco Use Types Packs/Day Years Used Date Smoking Tobacco: Never Smokeless Tobacco: Never PHQ-2 Answer Date Recorded PHQ-2 Total Score (If total score is 3 or more points, staff should administer the PHQ-9) 0 04/17/2020 Comments No Sex and Gender Information Value Date Recorded Sex Assigned at Not on file Legal Sex Female 11:27 PM PIPE FITTER SOFT COPPER Gender Identity Female 08/18/2019 3:36 PM CDT Sexual Orientation Straight 08/18/2019 3: 35 PM CDT documented as of this encounter Last Filed Vital Signs Vital Sign Reading Time Taken Comments Blood Pressure 118/66 04/28/2020 1:04 PM PIPE FITTER SOFT COPPER Pulse 84 04/28/2020 1:04 PM PIPE FITTER SOFT COPPER Temperature 36.2 ??C (97.1 ??F) 04/28/2020 1:04 PM CS T Respiratory Rate 16 04/28/2020 1:04 PM PIPE FITTER SOFT COPPER Oxygen Saturation 95% 04/28/2020 1:04 PM PIPE FITTER SOFT COPPER Inhaled Oxygen Concentration - - Weight 63.2 kg (139 lb 6.4 oz) 04/28/2020 1:04 P M PIPE FITTER SOFT COPPER Height 149.9 cm (4' 11 ) 04/28/2020 1:04 PM PIPE FITTER SOFT COPPER Body Mass Index 28.16 04/28/2020 1:04 PM PIPE FITTER SOFT COPPER documented in this encounter Progress Notes * Dennis Ross MD - 04/28/2020 1:15 PM CST Subjective/Objective Patient ID: Meghana Dueñas is a 80 y.o. female. Chief Complaint Hospital Follow Up and blockage of small intestine (patient was treated at [facility] for issue, patient states her issues have improved) SBO c/w partial ileus Review of Systems Constitutional: Negative for appetite change, fatigue and unexpected weight change. HENT: Negative for dental problem, sore throat and trouble swallowing. Eyes: Negative for photophobia. Respiratory: Negative for shortness of breath and wheezing. Cardiovascular: Negative for chest pain, palpitations and leg swelling. Gastrointestinal: Negative for abdominal pain, blood in stool, constipation, diarrhea, nausea, rectal pain and vomiting. Endocrine: Negative. Negative for polydipsia and polyphagia. Genitourinary: Negative for difficulty urinating. Musculoskeletal: Negative for arthralgias, back pain, gait problem, joint swelling and myalgias. Skin: Negative. Negative for pallor and rash. Allergic/Immunologic: Negative for food allergies and immunocompromised state. Neurological: Negative. Hematological: Negative. Psychiatric/Behavioral: Negative. Physical Exam Constitutional: Appearance: Normal appearance. She is well-developed. HENT: Nose: Nose normal. Eyes: General: Lids are normal. Conjunctiva/sclera: Conjunctivae normal. Neck: Thyroid: No thyroid mass or thyromegaly. Trachea: Trachea normal. Cardiovascular: Rate and Rhythm: Normal rate and regular rhythm. Pulses: Normal pulses. Pulmonary: Effort: Pulmonary effort is normal. Breath sounds: Normal breath sounds. Abdominal: General: Bowel sounds are normal. Palpations: Abdomen is soft. Skin: General: Skin is warm and dry. Neurological: Mental Status: She is alert and oriented to person, place, and time. Assessment/Plan Diagnoses and all orders for this visit: Small bowel obstruction, partial (CMS/HCC) (K56.600) (Primary) Assessment & Plan: A week of intermittent vomiting led up to admission for SBO. This resolved spontaneously after 5 days of conservative treatment and SBFT no definable pathology. She has returned to normal and is asx at present. I think she had a viral induced partial ileus which resolved. Return prn. FITTER SOFT COPPER documented in this encounter Miscellaneous Notes * Assessment & Plan Note - Dennis Ross MD - 04/28/2020 1:22 PM PIPE FITTER SOFT COPPER Associated Problem(s): Small bowel obstruction, partial (CMS/HCC) (HCC) (Resolved 06/06/2023) A week of intermittent vomiting led up to admission for SBO. This resolved spontaneously after 5 days of conservative treatment and SBFT no definable pathology. She has returned to normal and is asx at present. I think she had a viral induced partial ileus which resolved. Return prn. FITTER SOFT COPPER documented in this encounter Plan of Treatment Not on file documented as of this encounter Visit Diagnoses Diagnosis Small bowel obstruction, partial (CMS/HCC) (HCC)- Primary Unspecified intestinal obstruction documented in this encounter Care Teams Automobile Mechanic Radiator Relationship Specialty Start Date End Date Korey Randolph MD PCP - General Internal Medicine 05/23/17 documented as of this encounter
--- OUTSIDE RECORDS SUMMARY | 2024-04-07 05:38 | XMS_ITS | Encounter Summary ---
Author Organization [facility] Address [address] [place] [address] Care Team Providers Care Head Of Sales Promotion Name Role Phone Korey Randolph MD Primary Care Provider Reason for Visit * Reason Comments Chart Review [facility] med rec Encounter Details Date Type Department Care Team (Late st Contact Info) Description 04/17/2020 ACO Clinical Pharmacist Chart Review [facility] Accountable Care Organization [address] [place] [id number] Alma Norman RPh [address] [place] [id number] Social History Tobacco Use Types Packs/Day Years Used Date Smoking Tobacco: Never Smokeless Tobacco: Never PHQ-2 Answer Date Recorded PHQ-2 Total Score (If total score is 3 or more points, staff should administer the PHQ-9) 0 04/17/2020 Comments No Sex and Gender Information Value Date Recorded Sex Assigned at Not on file Legal Sex Female 11:27 PM PULLING UNIT FLOORHAND Gender Identity Female 08/18/2019 3:36 PM CDT Sexual Orientation Straight 08/18/2019 3: 35 PM CDT documented as of this encounter Progress Notes * Alma Norman RPh - 04/17/2020 7:58 AM CST ACO Clinical Pharmacist Medication Reconciliation Note Admission Date: 04/05/2020 Discharge Date: 04/10/2020 Admission Location: [facility] Problems/Diagnoses: Small-bowel obstruction, partial Discharge Status: To home or self-care [facility] visit scheduled within 10 days of discharge: Yes Discharge medication list from [facility] available, reviewed and reconciled with current outpatient medications. ?? Medication list unchanged. Summary of medication changes at discharge: Lorazepam 0.5 mg tablets were stopped. Alma Norman RPh ING UNIT FLOORHAND documented in this encounter Plan of Treatment Not on file documented as of this encounter Visit Diagnoses Not on filedocumented in this encounter Care Teams Head Of Sales Promotion Relationship Specialty Start Date End Date Korey Randolph MD PCP - General Internal Medicine 05/23/17 documented as of this encounter
--- OUTSIDE RECORDS SUMMARY | 2024-04-07 05:38 | XMS_ITS | Encounter Summary ---
Author Organization [facility] Address [address] [place] [address] Care Team Providers Care Cell Operation Supervisor Name Role Phone Korey Randolph MD Primary Care Provider Encounter Details Date Type Department Care Team (Late st Contact Info) Description 08/15/2019 12:55 PM CDT Lab [facility] [address] [place] [address] Korey Randolph MD [address] [place] [id number] Rachel Peace NP [address] Dennis [address] [phone] LLQ pain Discharge Disposition: Discharge to home or self care Social History Tobacco Use Types Packs/Day Years Used Date Smoking Tobacco: Never Smokeless Tobacco: Never PHQ-2 Answer Date Recorded PHQ-2 Score 0 11/21/2018 Comments No Sex and Gender Information Value Date Recorded Sex Assigned at Not on file Legal Sex Female 11:27 PM VENDOR MANAGEMENT SPECIALIST Gender Identity Female 08/18/2019 3:36 PM CDT Sexual Orientation Straight 08/18/2019 3: 35 PM CDT documented as of this encounter Discharge Disposition Disposition Code Departure Means Destination Discharge to home or self care documented in this encounter Miscellaneous Notes * Result Encounter Note - KobiRachel varghese NP - 08/15/2019 1:48 PM CDT Please let Meghana know her CBC was normal w/o any anemia which is good news. Thanks documented in this encounter Plan of Treatment Not on file documented as of this encounter Procedures Procedure Name Priority Date/Time Associated Diagnosis Comments DIFFERENTIAL AUTO Routine 08/15/2019 1:0 0 PM CDT LLQ pain CBC WITH AUTO DIFFERENTIAL Routine 08/15/2019 1:00 PM CDT LLQ pain documented in this encounter Results * Differential, auto (08/15/2019 1:00 PM CDT) Neutrophil abs 6.5 1.7 - 6.5 K/cumm [facility] ([place]) Imm gran abs 0.0 0.0 - 0.1 K/cumm [facility] ([place]) Lymphocyte abs 2.0 0.8 - 3.3 K/cumm [facility] ([place]) Monocyte abs 0.8 0.2 - 0.8 K/cumm [facility] ([place]) Eosinophil abs 0.1 0.0 - 0.5 K/cumm [facility] ([place]) Basophil abs 0.1 0.0 - 0.1 K/cumm [facility] ([place]) Neutrophil pct 68.7 % [facility] ([place]) Comment: Interpretive Data Percent cell count reference ranges are not reported, since discordance with absolute values may lead to misinterpretation of CBC data. Current Interpretive Data was last revised on 2017. Imm gran pct 0.3 % [facility] ([place]) Comment: Interpretive Data Percent cell count reference ranges are not reported, since discordance with absolute values may lead to misinterpretation of CBC data. Current Interpretive Data was last revised on 2017. Lymphocyte pct 20.7 % [facility] ([place]) Comment: Interpretive Data Percent cell count reference ranges are not reported, since discordance with absolute values may lead to misinterpretation of CBC data. Current Interpretive Data was last revised on 2017. Monocyte pct 8.2 % [facility] ([place]) Comment: Interpretive Data Percent cell count reference ranges are not reported, since discordance with absolute values may lead to misinterpretation of CBC data. Current Interpretive Data was last revised on 2017. Eosinophil pct 1.5 % [facility] ([place] Comment: Interpretive Data Percent cell count reference ranges are not reported, since discordance with absolute values may lead to misinterpretation of CBC data. Current Interpretive Data was last revised on 2017. Basophil pct 0.6 % [facility] ([place]) Comment: Interpretive Data Percent cell count reference ranges are not reported, since discordance with absolute values may lead to misinterpretation of CBC data. Current Interpretive Data was last revised on 2017. Blood specimen (specimen) 08/15/2019 1:00 PM CDT 08/15/2019 1:40 PM CDT Rachel Peace RECORD CLERK LAB BLOOD ORDERABLES Final R esult [facility] ([place] [address] [facility] Department of Laboratories [place], [place] [id number] * (ABNORMAL) CBC with auto differential (08/15/2019 1:00 PM CDT) WBC 9.4 3.8 - 9.9 K/cumm [facility]) Hgb 12.8 11.9 - 15.5 g/dL [facility]) Hct 39.2 35.6 - 45.5 % [facility]) Plt 243 150 - 400 K/cumm [facility] ([place]) MPV 11.4 9.1 - 12.3 fL [facility] ([place]) RBC 4.06 3.90 - 5.20 M/cumm [facility] ([place]) MCV 96.6(H) 81.3 - 96.4 fL [facility] ([place]) MCH 31.5 27.1 - 33.3 pg [facility] ([place]) MCHC 32.7 32.3 - 35.7 g/dL [facility] ([place]) RDW CV 13.5 11.1 - 14.9 % [facility] ([place]) RDW SD 48.3(H) 35.7 - 48.1 fL [facility] ([place]) NRBC abs 0.00 0.00 - 0.01 K/cumm [facility] ([place]) Blood specimen (specimen) 08/15/2019 1:00 PM CDT 08/15/2019 1:40 PM CDT Rachel Peace RECORD CLERK LAB BLOOD ORDERABLES Final R esult [facility] ([place] [address] [facility] [place] [address] documented in this encounter Visit Diagnoses Diagnosis LLQ pain Abdominal pain, left lower quadrant documented in this encounter Care Teams Cell Operation Supervisor Relationship Specialty Start Date End Date Korey Randolph MD PCP - General Internal Medicine 05/23/17 documented as of this encounter
--- OUTSIDE RECORDS SUMMARY | 2024-04-07 05:38 | XMS_ITS | Encounter Summary ---
Author Organization [facility] Healthcare Address [address] [place] [address] Care Team Providers Care Cell Builder Name Role Phone Korey Randolph MD Primary Care Provider Encounter Details Date Type Department Care Team (Late st Contact Info) Description 04/17/2020 2:15 PM INVENTORY ASSISTANT Lab [address] [address] Small bowel obstruction, partial (CMS/HCC); Hypokalemia Social History Tobacco Use Types Packs/Day Years Used Date Smoking Tobacco: Never Smokeless Tobacco: Never PHQ-2 Answer Date Recorded PHQ-2 Total Score (If total score is 3 or more points, staff should administer the PHQ-9) 0 04/17/2020 Comments No Sex and Gender Information Value Date Recorded Sex Assigned at Not on file Legal Sex Female 11:27 PM INVENTORY ASSISTANT Gender Identity Female 08/18/2019 3:36 PM CDT Sexual Orientation Straight 08/18/2019 3: 35 PM CDT documented as of this encounter Plan of Treatment Not on file documented as of this encounter Procedures Procedure Name Priority Date/Time Associated Diagnosis Comments EGFR Routine 04/17/2020 2:03 PM INVENTORY ASSISTANT Small bowel obstruction, partial (CMS/HCC) Hypokalemia DIFFERENTIAL AUTO Routine 04/17/2020 2:0 3 PM INVENTORY ASSISTANT Small bowel obstruction, partial (CMS/HCC) CBC WITH AUTO DIFFERENTIAL Routine 04/17/2020 2:03 PM INVENTORY ASSISTANT Small bowel obstruction, partial (CMS/HCC) BASIC METABOLIC PANEL Routine 04/17/2020 2:03 PM INVENTORY ASSISTANT Small bowel obstruction, partial (CMS/HCC) Hypokalemia documented in this encounter Results * eGFR (04/17/2020 2:03 PM INVENTORY ASSISTANT) eGFR 88 mL/min/1.7 3 m2 [facility] ([place]) Comment: Interpretive Data Reference Interval Normal ?>/= [...] was last reviewed 2020 Blood specimen (specimen) 04/17/2020 2:03 PM INVENTORY ASSISTANT 04/17/2020 2:44 PM INVENTORY ASSISTANT us Lou Shook NP LAB BLOOD ORDERABLES Final Result [facility] ([place] 1 [facility] Department [place] [address] * (ABNORMAL) Differential, auto (04/17/2020 2:03 PM INVENTORY ASSISTANT) Neutrophil abs 6.8(H) 1.7 - 6.5 K/cumm [facility] ([place]) Imm gran abs 0.0 0.0 - 0.1 K/cumm [facility] ([place]) Lymphocyte abs 1.9 0.8 - 3.3 K/cumm [facility] ([place]) Monocyte abs 0.9(H) 0.2 - 0.8 K/cumm [facility] ([place]) Eosinophil abs 0.1 0.0 - 0.5 K/cumm [facility] ([place]) Basophil abs 0.1 0.0 - 0.1 K/cumm [facility] ([place]) Neutrophil pct 69.3 % [facility] ([place]) Comment: Interpretive [...] was last revised on 2017. Lymphocyte pct 19.4 % [facility] ([place]) Comment: Interpretive Data Percent cell count reference ranges are not reported, since discordance with absolute values may lead to misinterpretation of CBC data. Current Interpretive Data was last revised on 2017. Monocyte pct 9.5 % [facility] ([place]) Comment: Interpretive Data Percent cell count reference ranges are not reported, since discordance with absolute values may lead to misinterpretation of CBC data. Current Interpretive Data was last revised on 2017. Eosinophil pct 1.0 % [facility] ([place]) Comment: Interpretive Data Percent cell count reference ranges are not reported, since discordance with absolute values may lead to misinterpretation of CBC data. Current Interpretive Data was last revised on 2017. Basophil pct 0.5 % [facility] ([place]) Comment: Interpretive Data Percent cell count reference ranges are not reported, since discordance with absolute values may lead to misinterpretation of CBC data. Current Interpretive Data was last revised on 2017. Blood specimen (specimen) 04/17/2020 2:03 PM INVENTORY ASSISTANT 04/17/2020 2:44 PM INVENTORY ASSISTANT Lou Shook NP LAB BLOOD ORDERABLES Final Result [facility] [address] [facility] [employer] [address] * (ABNORMAL) CBC with auto differential (04/17/2020 2:03 PM INVENTORY ASSISTANT) WBC 9.8 3.8 - 9.9 K/cumm [facility] ([place]) Hgb 13.1 11.9 - 15.5 g/dL [facility] ([place]) Hct 40.7 35.6 - 45.5 % [facility]) Plt 254 150 - 400 K/cumm [facility] ([place]) MPV 11.4 9.1 - 12.3 fL [facility] ([place]) RBC 4.25 3.90 - 5.20 M/cumm [facility] ([place]) MCV 95.8 81.3 - 96.4 fL [facility] ([place]) MCH 30.8 27.1 - 33.3 pg [facility] ([place]) MCHC 32.2(L) 32.3 - 35.7 g/dL [facility] ([place]) RDW CV 14.1 11.1 - 14.9 % [facility] ([place]) RDW SD 49.1(H) 35.7 - 48.1 fL [facility] ([place]) NRBC abs 0.00 0.00 - 0.01 K/cumm [facility] ([place]) Blood specimen (specimen) 04/17/2020 2:03 PM INVENTORY ASSISTANT 04/17/2020 2:44 PM INVENTORY ASSISTANT Lou Shook NP LAB BLOOD ORDERABLES Final Result Performing Organization Address City/[facility]/ZIP Co de Phone Number [facility] ([place]) [address] Department [place] [address] * (ABNORMAL) Basic metabolic panel (04/17/2020 2:03 PM INVENTORY ASSISTANT) Sodium 140 135 - 145 mmol/L [facility] ([place]) Potassium, pl 4.0 3.3 - 4.9 mmol/L [facility]) Chloride 104 97 - 110 mmol/L [facility]) CO2 27 22 - 32 mmol/L [facility]) Anion gap 9 2 - 15 mmol/L [facility]) BUN 13 8 - 25 mg/dL [facility]) Creatinine 0.57(L) 0.60 - 1.10 mg/dL [facility]) Glucose 96 70 - 199 mg/dL [facility]) Comment: Interpretive Data Fasting glucose [...] interpretive data was last revised 2017. Calcium 9.8 8.5 - 10.3 mg/dL [facility] ([place]) Blood specimen (specimen) 04/17/2020 2:03 PM INVENTORY ASSISTANT 04/17/2020 2:44 PM INVENTORY ASSISTANT us Lou Shook TRAIN GATE ATTENDANT LAB BLOOD ORDERABLES Final Result [facility] ([place] 1 [facility] Department [place] [address] documented in this encounter Visit Diagnoses Diagnosis Small bowel obstruction, partial (CMS/HCC) (HCC) Unspecified intestinal obstruction Hypokalemia Hypopotassemia documented in this encounter Care Teams Cell Builder Relationship Specialty Start Date End Date Korey Randolph MD PCP - General Internal Medicine 05/23/17 documented as of this encounter
--- OUTSIDE RECORDS SUMMARY | 2024-04-07 05:38 | XMS_ITS | Encounter Summary ---
Author Organization [facility] Address [address] [place] [address] Care Team Providers Care Open Hearth Furnace Laborer Name Role Phone Korey Randolph MD Primary Care Provider Encounter Details Date Type Department Care Team (Late st Contact Info) Description 04/17/2020 Telephone [place] [facility] [address] [facility] [address] [place] [address] Lou Shook, MANAGER CONTINUOUS IMPROVEMENT [address] [place] [address] Social History Tobacco Use Types Packs/Day Years Used Date Smoking Tobacco: Never Smokeless Tobacco: Never PHQ-2 Answer Date Recorded PHQ-2 Total Score (If total score is 3 or more points, staff should administer the PHQ-9) 0 04/17/2020 Comments No Sex and Gender Information Value Date Recorded Sex Assigned at Not on file Legal Sex Female 11:27 PM RN CORRECTIONS Gender Identity Female 08/18/2019 3:36 PM CDT Sexual Orientation Straight 08/18/2019 3: 35 PM CDT documented as of this encounter Miscellaneous Notes * Telephone Encounter - Zuleima Sprague MA - 04/20/2020 9:22 AM CST Pt aware CORRECTIONS * Telephone Encounter - Lou Shook NP - 04/20/2020 8:57 AM RN CORRECTIONS Potassium is back to normal. CORRECTIONS * Telephone Encounter - Zuleima Sprague MA - 04/17/2020 3:52 PM CST AWM out of office Pt aware this message will hold until monoday 04/20/20 CORRECTIONS * Telephone Encounter - Cali Root - 04/17/2020 3:47 PM CST Pt aware and asking what came back on her potassium lab. CORRECTIONS * Telephone Encounter - Henny Zuniga MA - 04/17/2020 3:23 PM CST lmom CORRECTIONS * Telephone Encounter - Henny Zuniga MA - 04/17/2020 3:23 PM CST ----- Message from Lou Shook NP sent at 04/17/2020 2:46 PM RN CORRECTIONS ----- Please let Yina know the bowel obstruction is no longer seen on the x-ray. Good news. CORRECTIONS documented in this encounter Plan of Treatment Not on file documented as of this encounter Visit Diagnoses Not on filedocumented in this encounter Care Teams Open Hearth Furnace Laborer Relationship Specialty Start Date End Date Korey Randolph MD PCP - General Internal Medicine 05/23/17 documented as of this encounter
--- OUTSIDE RECORDS SUMMARY | 2024-04-07 05:38 | XMS_ITS | Encounter Summary ---
Author Organization [facility] Healthcare Address [address] [place] [address] Care Team Providers Care Supervisor Capacitor Processing Name Role Phone Korey Randolph MD Primary Care Provider Reason for Visit * Reason Comments Abdominal Pain Encounter Details Date Type Department Care Team (Latest Contact Info) Description 04/05/2020 10:10 PM APPLICATION HELPER - 04/10/2020 4:32 PM APPLICATION HELPER Hospital Encounter [facility] [address] [place] [address] Bridget Bell MD [address] [place] [address] Korey Randolph MD [address] [address] Small bowel obstruction, partial (CMS/HCC) (Primary Dx) Discharge Disposition: Discharge to home or self care Social History Tobacco Use Types Packs/Day Years Used Date Smoking Tobacco: Never Smokeless Tobacco: Never PHQ-2 Answer Date Recorded PHQ-2 Score 0 11/21/2018 Comments No Sex and Gender Information Value Date Recorded Sex Assigned at Not on file Legal Sex Female 11:27 PM APPLICATION HELPER Gender Identity Female 08/18/2019 3:36 PM CDT Sexual Orientation Straight 08/18/2019 3: 35 PM CDT documented as of this encounter Last Filed Vital Signs Vital Sign Reading Time Taken Comments Blood Pressure 146/62 04/10/2020 1:00 PM APPLICATION HELPER Pulse 64 04/10/2020 1:00 PM APPLICATION HELPER Temperature 37 ??C (98.6 ??F) 04/10/2020 1:00 PM APPLICATION HELPER Respiratory Rate 18 04/10/2020 1:00 PM APPLICATION HELPER Oxygen Saturation 98% 04/10/2020 1:00 PM APPLICATION HELPER Inhaled Oxygen Concentration - - Weight 63.5 kg (139 lb 15.9 oz) 021 10:21 PM APPLICATION HELPER Height 149.9 cm (4' 11 ) 04/05/2020 10: 21 PM APPLICATION HELPER Body Mass Index 28.27 04/05/2020 10:21 PM APPLICATION HELPER documented in this encounter Discharge Diagnoses Diagnosis Partial intestinal obstruction, unspecified as to cause (HCC) - PARTIAL INTESTINAL OBSTRUCTION, UNSPECIFIED TO CAUSE Hyperlipidemia, unspecified - HYPERLIPIDEMIA, UNSPECIFIED Diaphragmatic hernia without obstruction or gangrene - DIAPHRAGMATIC HERNIA WITHOUT OBSTRUCTION OR GANGRENE Diaphragmatic hernia without mention of obstruction or gangrene Irritable bowel syndrome with constipation - IRRITABLE BOWEL SYNDROME WITH CONSTIPATION Irritable bowel syndrome Hypokalemia - HYPOKALEMIA Hypopotassemia Diarrhea, unspecified - DIARRHEA, UNSPECIFIED Gastro-esophageal reflux disease without esophagitis - GASTRO-ESOPHAGEAL REFLUX DISEASE WITHOUT ESOPHAGITIS 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 - SENIOR LIVING (CURRENT) USE OF ASPIRIN Other retirement (current) drug therapy - OTHER WIRELESS TEAM MEMBER (CURRENT) DRUG THERAPY Acquired absence of other specified parts of digestive tract - ACQUIRED ABSENCE OF OTHER SPECIFIED PARTS OF DIGESTIVE TRACT documented in this encounter Discharge Summaries * Korey Randolph MD - 04/10/2020 3:17 PM CST Inpatient Discharge Summary BRIEF OVERVIEW Admitting Provider: Korey Randolph MD Discharge Provider: Korey Randolph MD Primary Care Physician at Discharge: Korey Randolph MD [phone] Admission Date: 04/05/2020 Discharge Date: Admission Location: [facility] Problems/Diagnoses: Principal Problem: Small bowel obstruction, partial (CMS/HCC) Resolved Problems: No resolved hospital problems. DETAILS OF HOSPITAL STAY Presenting Problem/History of Present Illness: Patient showed up with vomiting and abdominal pain in the ER was admitted with partial small-bowel obstructions seen on x-ray Hospital Course: Patient was treated with the NG suction and IV fluids and empiric antibiotics her CT scan showed a possible enteritis. The patient was seen in consultation by surgery who recommended a conservative course after several days of decompressing her upper GI tract and was subsequent serial obstructive x-ray series and finally a small-bowel follow his series it was felt that she just had a partial small-bowel obstruction and she was having good bowel function by discharge she was taken off the NG suction and advanced to clear liquids and regular food she tolerated 2 meals of solid food and so we felt comfortable in discharging the patient home to outpatient management we still do not know the actual cause of her partial small-bowel obstruction Active Issues Requiring Follow-up: Hopefully she will have continued improvement in her bowel function Test Results Pending at Discharge: Operative Procedures Performed: Other Procedures: Small-bowel follow-through x-ray series Pertinent Test Results: Please refer to the epic lab summary for full details Discharge Details Physical Exam at Discharge: Discharge Condition: good Pulse: 64 Resp: 18 BP: 146/62 Temp: 37 ??C (98.6 ??F) Weight: 63.5 kg (139 lb 15.9 oz) Pertinent Exam Findings at Discharge: Normal bowel sounds soft nontender abdomen good vital signs Discharge Disposition: Discharge to home or self care Code Status at Discharge: Full code blue Discharge Instructions: Patient will return to my clinic next week for follow-up she will eat a regular diet and has no activity restrictions Discharge Medications: Current Medications TAKE these medications atorvastatin 10 mg tablet TAKE 1 TABLET BY MOUTH EVERY DAY Commonly known as: LIPITOR cholecalciferol 1,000 unit capsule Take by mouth daily Commonly known as: VITAMIN D-3 cyanocobalamin(vit B-12)(bulk) powder Take 2 capsules by mouth daily fluticasone propionate 50 mcg/actuation nasal spray SHAKE LIQUID AND USE 2 SPRAYS IN EACH NOSTRIL DAILY Commonly known as: FLONASE LORazepam 0.5 mg tablet Take 1-2 tablets (0.5-1 mg total) by mouth as directed Take 30 minutes prior to procedure. Commonly known as: ATIVAN NON FORMULARY (FOR INPATIENT USE) Take 10 mg by mouth daily Prevagen pantoprazole DR 40 mg EC tablet TAKE 1 TABLET(40 MG) BY MOUTH TWICE DAILY Commonly known as: PROTONIX vitamin E 400 unit capsule Take 400 Units by mouth daily. Commonly known as: AQUASOL E Vitamins and Minerals tablet Take 1 tablet by mouth daily Generic drug: multivitamin,tx-minerals Outpatient Follow-Up: Future Appointments Date Time Provider Department Center 06/26/2020 10:00 AM Korey Randolph MD [facility] I spent 25 minutes interviewing and examining the patient the day of discharge reviewing her records writing discharge orders and preparing this note ICATION HELPER documented in this encounter Discharge Instructions * Discharge Instr - Other Orders* Earnestine Voss RN - 04/10/2020 4:06 PM APPLICATION HELPER If you have any questions or concerns following discharge, please call [facility] at [phone]. ICATION HELPER documented in this encounter Medications at Time of Discharge cholecalciferol (VITAMIN D-3) 1,000 unit capsule Take by mouth daily multivitamin with minerals tablet Take 1 tablet by mouth daily NON FORMULARY, FOR INPATIENT USE, Take 10 mg by mouth daily Prevagen vitamin E 400 unit capsule Take 1 capsule (400 Units total) by mouth daily atorvastatin (LIPITOR) 10 mg tablet TAKE 1 TABLET BY MOUTH EVERY DAY 30 tablet 11 12/16/2019 12/21/2020 cyanocobalamin, vitamin B-12, (CYANOCOBALAMIN, VIT B-12,,BULK,) powder Take 2 capsules by mouth daily 07/11/2022 fluticasone propionate (FLONASE) 50 mcg/actuation nasal spray SHAKE LIQUID AND USE 2 SPRAYS IN EACH NOSTRIL DAILY 16 g 11 01/13/2020 06/29/[address] (PROTONIX) 40 mg EC tablet TAKE 1 TABLET(40 MG) BY MOUTH TWICE DAILY 90 tablet 3 06/10/2019 08/05/2020 documented as of this encounter Discharge Disposition Disposition Code Departure Means Destination Discharge to home or self care documented in this encounter Progress Notes * Babak Tinoco MD - 04/10/2020 11:30 AM CST Progress Note Subjective: HPI: No acute events overnight. Tolerated liquids with continue GI function. Denies pain Chief complaint: Resolving obstruction Objective: Vitals: 04/10/20 0719 BP: 148/63 Pulse: 63 Resp: 16 Temp: 36.7 ??C (98.1 ??F) SpO2: 98% Physical Exam Abdomen: Soft, nontender, nondistended Assessment/Plan Partial small bowel obstruction Soft diet Encourage ambulation If does well through lunchtime okay to DC from surgical standpoint Babak Tinoco MD 11:30 AM 04/10/2020 ICATION HELPER * Jess Grove RN - 04/10/2020 10:35 AM CST DC plan update. Possible dc later today. She has a ride home . Barrier to dc is dependent upon how she tolerates lunch. No needs noted. IMM signed. 04/10/20 1035 Discharge Planning Support System Family members Home Care Services No Patient expects to be discharged to: Private residence Does the patient need discharge transport arranged? No ICATION HELPER ICATION HELPER * Elizabeth Burch, FAN - 04/10/2020 10:23 AM CST Nutrition Assessment Reason for Assessment: Initial Nutrition Assessment and Length of Stay Encounter Date: 04/10/20 10:23 AM Nutrition Assessment and Plan: Patient is a 80 y.o. female. Admit Dx: SMALL BOWEL OBSTRUCTION, PARTIAL (CMS/HCC). Admitted on 04/05/2020, current LOS is 4 days. Current diet order: Adult Diet Modified Consistency; GI Soft Pt intake NA. PO intakes: NA Wt Readings from Last 10 Encounters: 04/05/20 63.5 kg (139 lb 15.9 oz) 02/26/20 63.5 kg (140 lb) 12/31/19 64.6 kg (142 lb 6.4 oz) 12/06/19 64.2 kg (141 lb 9.6 oz) 08/14/19 64.9 kg (143 lb) 06/26/19 66.2 kg (146 lb) 01/24/19 64.4 kg (142 lb) 01/16/19 65.3 kg (144 lb) 12/11/18 64 kg (141 lb) 12/04/18 65.8 kg (145 lb) Nutrition Diagnosis 1: Inadequate oral intake Related to: Altered GI function, Clear liquid Evidenced by: Physical finding ?? Interventions: Keeler diet preferences within the limits of nutrition care order ?? Monitoring and Evaluation: Discharge plans, Diet advancement, Labs, PO intake ?? Goals: Adequate nutrition to meet estimated needs by next assessment ? Estimated needs: ?? Total Kcal/kg Estimated Needs : 1587.5 based on Kcal/k. Type of Weight Used for Estimated Kcals: Current ?? Total Protein Estimated Needs (gm): 76.2 Protein Needs Based on g/k.2 Type of Weight Used for Estimated Protein : Current. ?? Total Fluid Estimated Needs: 1587.5 Fluid Needs Based on : 25 ml/kg. Objective Anthropometrics Weight: 63.5 kg (139 lb 15.9 oz) Admission Weight : 63.5 kg Weight Change: 0.00 kg (0.00 lbs) IBW/kg (Calculated) : 43.1 kg Height: 149.9 cm (4' 11 ) Weight in (lb) to have BMI = 25: 123.5 BMI (Calculated): 28.3 3 Day I/O Summary 04/08 1900 - 04/10 0659 In: 2490 [I.V.:2490] Out: 1150 [Urine:650] Temp: 36.7 ??C (98.1 ??F) Past Medical History: Diagnosis Date ??? GERD (gastroesophageal reflux disease) ??? Hyperlipidemia Medications and Lab Review: Scheduled Meds: ??? enoxaparin, 40 mg, subcutaneous, Daily-2100 ??? famotidine, 20 mg, intravenous, Daily ??? piperacillin-tazobactam, 3.375 g, intravenous, Q6H ERNST ??? potassium chloride, 40 mEq, intravenous, Once ??? sodium chloride 0.9%, 0.5-20 mL, intra-catheter, Q8H Continuous Infusions: ??? sodium chloride 0.9%, 125 mL/hr, Last Rate: 125 mL/hr (04/09/20 2342) Sodium Date Value Ref Range Status 04/10/2020 143 135 - 145 mmol/L Final Potassium, pl Date Value Ref Range Status 04/10/2020 3.2 (L) 3.3 - 4.9 mmol/L Final BUN Date Value Ref Range Status 04/10/2020 10 8 - 25 mg/dL Final Creatinine Date Value Ref Range Status 04/10/2020 0.51 (L) 0.60 - 1.10 mg/dL Final Calcium Date Value Ref Range Status 04/10/2020 8.4 (L) 8.5 - 10.3 mg/dL Final No results found for: HGBA1C POC Glucose: NA(04/10) Nursing Assessment: Last BM Date: 04/10/20 Bowel Sounds (All Quadrants): Active Emesis Assessment Emesis Color/Appearance: Bilious, Green Tony Scale Score: 21 Skin Integrity: Intact Nutrition Follow-Up : 04/14/[address],LDN ICATION HELPER * Lou Garcia RPh - 04/10/2020 6:53 AM CST Electrolyte monitoring performed by pharmacy on labs from 0532, Na+=143 K+=3.2 Potassium chloride 40meq iv x1 replacement ordered. Pharmacy will continue to follow daily. Thank you, Lou Garcia RPh [facility] Pharmacy department ICATION HELPER * Korey Randolph MD - 04/09/2020 6:21 PM CST Daily Progress Subjective Chief complaint of Abdominal pain. Interval History: The patient had her NG tube taken out by the surgeon series she had quite a bit of diarrhea after contrast passed through last night no more vomiting heartburn this morning associated with her NG to Objective Vitals: 24hr Min/Max: Temp Min: 36.7 ??C (98.1 ??F) Max: 37.8 ??C (100 ??F) Pulse Min: 57 Max: 71 BP Min: 140/55 Max: 156/60 Resp Min: 18 Max: 18 SpO2 Min: 94 % Max: 100 % Most Recent : Vitals: 04/09/20 1600 BP: 156/60 Pulse: 57 Resp: 18 Temp: 37.8 ??C (100 ??F) SpO2: 100% I/O last 2 completed shifts: In: 2490 [I.V.:2490] Out: 1450 [Urine:650; Emesis/NG output:800] No intake/output data recorded. Physical Exam: Lungs: Clear to auscultation bilaterally, respirations unlabored Cardiovascular: Regular rate and rhythm, S1 and S2 normal, no murmur, rub or gallop, no edema, pulses 2+ and symmetric to all extremeties Abdomen: Soft, non-tender, bowel sounds active all four quadrants, no masses, no organomegaly, non-distended Extremities: Extremities normal, atraumatic, no cyanosis or edema, no clubbing Neurologic: Alert & oriented x 4, CNII-XII intact. Normal strength, sensation and reflexes throughout Lab/Radiology/Diagnostic Review: Laboratory review: Lab results in the last 24 hours: Recent Results (from the past 24 hour(s)) Basic metabolic panel Collection Time: 04/09/20 5:24 AM Result Value Ref Range Sodium 147 (H) 135 - 145 mmol/L Potassium, pl 3.1 (L) 3.3 - 4.9 mmol/L Chloride 116 (H) 97 - 110 mmol/L CO2 19 (L) 22 - 32 mmol/L Anion gap 13 2 - 15 mmol/L BUN 16 8 - 25 mg/dL Creatinine 0.54 (L) 0.60 - 1.10 mg/dL Glucose 64 (L) 70 - 199 mg/dL Calcium 8.6 8.5 - 10.3 mg/dL CBC without differential Collection Time: 04/09/20 5:24 AM Result Value Ref Range WBC 8.7 3.8 - 9.9 K/cumm Hgb 11.5 (L) 11.9 - 15.5 g/dL Hct 35.6 35.6 - 45.5 % Plt 187 150 - 400 K/cumm MPV 11.8 9.1 - 12.3 fL RBC 3.78 (L) 3.90 - 5.20 M/cumm MCV 94.2 81.3 - 96.4 fL MCH 30.4 27.1 - 33.3 pg MCHC 32.3 32.3 - 35.7 g/dL RDW CV 13.5 11.1 - 14.9 % RDW SD 46.9 35.7 - 48.1 fL NRBC abs 0.00 0.00 - 0.01 K/cumm eGFR Collection Time: 04/09/20 5:24 AM Result Value Ref Range GFR 90 mL/min/1.73 m2 Assessment/Plan Principal Problem: Small bowel obstruction, partial (CMS/HCC) She just has a partial small-bowel obstruction so hopefully we can manage her conservatively her potassium was a little bit better but not perfect so will give her some more IV potassium and will seehow she does with some clear liquids I spent 25 minutes interviewing and examining the patient reviewing her records and preparing this note ICATION HELPER ICATION HELPER * Babak Tinoco MD - 04/09/2020 1:07 PM CST Progress Note Subjective: HPI: Multiple bowel movements after the upper GI. Continues to have good GI function and states abdominal exam almost back to baseline Objective: Vitals: 04/09/20 1044 BP: 152/53 Pulse: 64 Resp: 18 Temp: 37.4 ??C (99.4 ??F) SpO2: 95% Physical Exam Abdomen: Soft, improved distention Assessment/Plan Partial small bowel obstruction DC NG tube Clear liquid diet Encourage ambulation If has a good night real food in morning and hopefully home Babak Tinoco MD 1:07 PM 04/09/2020 ICATION HELPER * Lou Garcia, [facility] - 04/09/2020 8:07 AM CST Electrolyte monitoring performed by pharmacy on labs from 04/09/2020 0524, Na+=147 K+=3.1 Potassium chloride 40meq iv x1 replacement ordered. Pharmacy will continue to follow daily. Thank you, Lou Garcia kwabena [facility] Pharmacy department ICATION HELPER * Korey Randolph MD - 04/08/2020 12:59 PM CST Daily Progress Subjective Chief complaint of vomiting. Interval History: The patient is had steady improvement the last 24 hours her abdominal pain is much diminished and her vomiting is stop once they advance the NG tube in her stomach and got out more fluid she is passing flatus but no bowel movement no fever chills reported Objective Vitals: 24hr Min/Max: Temp Min: 36.4 ??C (97.5 ??F) Max: 37 ??C (98.6 ??F) Pulse Min: 75 Max: 84 BP Min: 135/56 Max: 151/71 Resp Min: 16 Max: 18 SpO2 Min: 92 % Max: 96 % Most Recent : Vitals: 04/08/20 0804 BP: 149/61 Pulse: 84 Resp: 18 Temp: 36.4 ??C (97.5 ??F) SpO2: 96% I/O last 2 completed shifts: In: 2964.4 [I.V.:2964.4] Out: 1500 [Urine:600; Emesis/NG output:900] No intake/output data recorded. Physical Exam: Lungs: Clear to auscultation bilaterally, respirations unlabored Cardiovascular: Regular rate and rhythm, S1 and S2 normal, no murmur, rub or gallop, no edema, pulses 2+ and symmetric to all extremeties Abdomen: Soft, non-tender, bowel sounds active all four quadrants, no masses, no organomegaly, non-distended Extremities: Extremities normal, atraumatic, no cyanosis or edema, no clubbing Neurologic: Alert & oriented x 4, CNII-XII intact. Normal strength, sensation and reflexes throughout Lab/Radiology/Diagnostic Review: Laboratory review: Lab results in the last 12 hours: Recent Results (from the past 12 hour(s)) Basic metabolic panel Collection Time: 04/08/20 5:06 AM Result Value Ref Range Sodium 146 (H) 135 - 145 mmol/L Potassium, pl 3.0 (Critical) 3.3 - 4.9 mmol/L Chloride 116 (H) 97 - 110 mmol/L CO2 22 22 - 32 mmol/L Anion gap 9 2 - 15 mmol/L BUN 15 8 - 25 mg/dL Creatinine 0.55 (L) 0.60 - 1.10 mg/dL Glucose 83 70 - 199 mg/dL Calcium 8.5 8.5 - 10.3 mg/dL CBC without differential Collection Time: 04/08/20 5:06 AM Result Value Ref Range WBC 9.5 3.8 - 9.9 K/cumm Hgb 11.3 (L) 11.9 - 15.5 g/dL Hct 34.7 (L) 35.6 - 45.5 % Plt 182 150 - 400 K/cumm MPV 11.4 9.1 - 12.3 fL RBC 3.67 (L) 3.90 - 5.20 M/cumm MCV 94.6 81.3 - 96.4 fL MCH 30.8 27.1 - 33.3 pg MCHC 32.6 32.3 - 35.7 g/dL RDW CV 13.7 11.1 - 14.9 % RDW SD 47.9 35.7 - 48.1 fL NRBC abs 0.00 0.00 - 0.01 K/cumm eGFR Collection Time: 04/08/20 5:06 AM Result Value Ref Range GFR 89 mL/min/1.73 m2 Assessment/Plan Principal Problem: Small bowel obstruction, partial (CMS/HCC) The patient's potassium was low so we are correcting that with IV replacement until we get the NG tube out that is certainly not a surprise the surgeon has seen the patient and has recommended a small-bowel follow-through series to see was any mechanical obstruction hopefully that will be negative and we can clamp and or remove the NG to and start some clear liquids I spent 25 minutes interviewing and examining the patient reviewing her records writing orders and communicating with the nursing staff and writing this note ICATION HELPER ICATION HELPER * Li Ho, [facility] - 04/08/2020 9:57 AM CST Electrolyte monitoring performed by pharmacy on labs from 04/08 0506 (date & time), Na+=146 K+=3 Mg+ and Phos=no results Potassium chloride 40 meq IVPB x 1 replacement ordered by . Pharmacy will continue to follow daily. Thank you, Li Ho, [facility] Pharmacy department An order to initiate electrolyte repletion by pharmacy has been received from Dr. Randolph. IV or PO repletion will be ordered by the pharmacist when levels fall below the desired range basedon NPO status as follows: If potassium level is greater than 2.8 and less than 3.3, give 40mEq potassium chloride IVPB, or oral (per NG tube, when applicable). If potassium level is 2.8 or less, or greater than 6, call physician for orders If magnesium level is 1.0 - 1.5 and patient can take oral medications, administer magnesium oxide 400 mg oral TID x 3 doses. If magnesium level is <1.0, or 1.0 -1.5 and patient is NPO, administer 2 grams magnesium sulfateIVPB over 2 hours. Repletion of Phosphorus Patient can take oral/per tube meds sodium/potassium phosphate Tab contains 1.1 mEq K, 13 mEq Na, 8 mmol phos Powder Packet contains 7.1 mEq K, 6.9 mEq Na, 8 mmol phos Patient NPO and/or Phosphorus level is <1.1 or Phosphorus level is 2.5 or less in TPN patient Decrease dose by 50% for CrCl < 50 Potassium level < 3.3 Potassium level 3.3 - 3.4 Potassium level 3.5 or higher Potassium level < 4.5 Potassium level 4.5 or higher Phosphorus 1.9 - 2.5 1 packet TID x 3 doses, KCl 20 mEq x 1 dose 1 packet TID x 3 doses 1 tab TID x 3 doses Potassium Phosphate 0.4 mmol/kg IVPB over 6 hours Sodium Phosphate 0.4 mmol/kg IVPB over 6 hours Phosphorus 1.1 - 1.8 2 packets TID x 3 doses, KCl 20 mEq x 1 dose 2 packets TID x 3 doses 2 tabs TID x 3 doses Monitoring Guidelines: Electrolyte levels will be ordered by providers as needed, except TPN patients who will be monitored as follows: TPN Patients: Renal panel daily x3 days, then every other day. Thank you, Li Ho RPh [facility] Pharmacy department ICATION HELPER * Babak Tinoco MD - 04/08/2020 9:27 AM CST Progress Note Subjective: HPI: Overnight patient states her pain continues to improve. She is less bloated and flatus has improved. Still having some mild abdominal discomfort Objective: Vitals: 04/08/20 0804 BP: 149/61 Pulse: 84 Resp: 18 Temp: 36.4 ??C (97.5 ??F) SpO2: 96% Physical Exam Abdomen: Soft, decreased distention, minimal tenderness in the mid abdomen Assessment/Plan Small bowel obstruction White count has normalized and GI function improving. Still with some dilated loops of bowel on plain film. Given the thickened appearance of small bowel on initial CT scan, this may be an infectiousetiology as the root of her obstruction. I will order an upper GI with small-bowel follow-through to further evaluate the bowel lumen. If passes without difficulty or remove NG tube and give clear liquids. Babak Tinoco MD 9:27 AM 04/08/2020 ICATION HELPER * Dior Harper NP - 04/07/2020 4:14 PM CST General Surgery Daily Progress Subjective Chief complaint of sore throat from sbo, ng Interval History: repeat imaging continues to show mild dilated small bowel loops. Patient states she does feel mildly less bloated today. Also had some gas today. No bowel movement. Current Facility-Administered Medications: ??? enoxaparin (LOVENOX) syringe 40 mg, 40 mg, subcutaneous, Daily-2099, Bridget Bell MD, 40 mg at 04/06/202013 ??? famotidine (PEPCID) injection 20 mg, 20 mg, intravenous, Daily, Dior Harper HISTOLOGY AIDE ??? fentaNYL (SUBLIMAZE) preservative free injection 50 mcg, 50 mcg, intravenous, Q2H PRN, Bridget Bell MD, 50 mcg at 04/07/20 1213 ??? ondansetron (ZOFRAN) injection 4 mg, 4 mg, intravenous, Q6H PRN, Bridget Bell MD, 4 mg at 04/07/20 1006 ??? phenol (CHLORASEPTIC) 1.4 % oral spray 2 spray, 2 spray, mouth/throat, Q2H PRN, Eyers, [place], HISTOLOGY AIDE ??? piperacillin-tazobactam (ZOSYN) 3.375 g in sodium chloride 0.9% 50 mL IVPB, 3.375 g, intravenous, Q6H ERNST, Eyers, Dior, HISTOLOGY AIDE, Last Rate: 130 mL/hr at 04/07/20 1207, 3.375 g at 04/07/20 1207 ??? sodium chloride 0.9% flush 0.5-20 mL, 0.5-20 mL, intra-catheter, Q8H, Korey Randolph MD ??? sodium chloride 0.9% flush 0.5-20 mL, 0.5-20 mL, intra-catheter, PRN, Korey Randolph MD ??? sodium chloride 0.9% infusion, 125 mL/hr, intravenous, Continuous, Bridget Bell MD, Last Rate: 125 mL/hr at 04/07/20 0647, 125 mL/hr at 04/07/20 0647 Objective Physical Exam: Abdomen: Distended , no guarding, no tenderness Lab/Radiology/Diagnostic Review: Laboratory review: Lab results in the last 24 hours: Recent Results (from the past 24 hour(s)) Basic metabolic panel Collection Time: 04/07/20 10:33 AM Result Value Ref Range Sodium 144 135 - 145 mmol/L Potassium, pl 3.5 3.3 - 4.9 mmol/L Chloride 110 97 - 110 mmol/L CO2 26 22 - 32 mmol/L Anion gap 8 2 - 15 mmol/L BUN 17 8 - 25 mg/dL Creatinine 0.59 (L) 0.60 - 1.10 mg/dL Glucose 118 70 - 199 mg/dL Calcium 8.6 8.5 - 10.3 mg/dL CBC without differential Collection Time: 04/07/20 10:33 AM Result Value Ref Range WBC 11.2 (H) 3.8 - 9.9 K/cumm Hgb 12.4 11.9 - 15.5 g/dL Hct 37.6 35.6 - 45.5 % Plt 197 150 - 400 K/cumm MPV 11.2 9.1 - 12.3 fL RBC 4.02 3.90 - 5.20 M/cumm MCV 93.5 81.3 - 96.4 fL MCH 30.8 27.1 - 33.3 pg MCHC 33.0 32.3 - 35.7 g/dL RDW CV 13.8 11.1 - 14.9 % RDW SD 47.6 35.7 - 48.1 fL NRBC abs 0.00 0.00 - 0.01 K/cumm eGFR Collection Time: 04/07/20 10:33 AM Result Value Ref Range GFR 87 mL/min/1.73 m2 Imaging review: I have reviewed the result(s) kub Vitals: 24hr Min/Max: Temp Min: 36.5 ??C (97.7 ??F) Max: 37.3 ??C (99.2 ??F) Pulse Min: 78 Max: 98 BP Min: 118/67 Max: 148/64 Resp Min: 16 Max: 18 SpO2 Min: 93 % Max: 100 % Most Recent : Vitals: 04/07/20 1436 BP: 142/63 Pulse: 78 Resp: 18 Temp: 36.5 ??C (97.7 ??F) SpO2: 93% I/O last 2 completed shifts: In: 1397 [I.V.:1397] Out: 150 [Emesis/NG output:150] No intake/output data recorded. Assessment /Plan will give some pepcid and some chloraseptic. Now that the ng is likely in the correct spot, we can decompress over night and repeat kub in the morning. It is a good sign that she is already passing some gas. She had quite a bit more out of her ng after they repositioned it. Abdominal exam is reassuring. Principal Problem: Small bowel obstruction, partial (CMS/HCC) Cosigned by Babak Tinoco MD at 04/08/2020 10:09 AM APPLICATION HELPER ICATION HELPER ICATION HELPER * Lee Ann Wiley RN - 04/07/2020 1:57 PM CST CM Initial Assessment Interview Note Information Obtained From: Patient (04/07/201353) Admission Source: Patient Impression: Small bowel obstruction Plan Includes: Evaluation Primary Source of Transportation: Friend will provide transportation at discharge Health Insurance Coverage: Yes Prescription Coverage: Yes Pharmacy: [facility] Primary Care Provider: Korey Randolph MD Prior to Admission: Primary Caregiver: Self Support System: Family members, Friends/neighbors Home Care Services: No Durable Medical Equipment: None Living Arrangements: Alone Type of Residence: Private residence Steps in home? : Yes, Outside of home Number of steps outside:: 3 steps (04/07/201353) Potential discharge needs include: Dialysis: Dialysis: No (04/07/201353) Behavioral Health Services: Behavioral Health Services: No (04/07/201353) Patient expects to be Discharged to: Private residence, (04/07/201353) Additional Information: Discussed d/c with pt. Goal is to return home-pt lives alone. Pt is independent with ADL's and does not use any assistive devices. Barrier to d/c is resolution of small bowel obstruction. Pt denies any needs at this time. No needs identified by CM. Patient's Identified Problem/Goal Problem: Ensure acute medical needs are met and that patient has a safe discharge plan. Goal: Secure a discharge plan that patient/family are agreeable with and ensure patient has continuum of care. Case management will follow for discharge planning and send referrals as needed. Goals include: To assure continuity of care, To maximize coping skills, To assure patient is in a safe environment and To assure access to community resources. Plan includes: 1. Collaboration with patient, MD, direct care nurse, Senior Systems Engineer, Nurse Coordinator and other members of the health care team to assure needed interventions completed. 2. Return patient to optimal level of self-care post discharge. 3. Vendor Management Consultant will follow for Discharge Planning - interventions as needed 4. Anticipated level of care at discharge 5. Planned Discharge Disposition Based on a comprehensive family assessment, assistance with instrumental activities of daily livingafter discharge will be provided by patient. CM will follow. Lee Ann Wiley RN ICATION HELPER * Korey Randolph MD - 04/07/2020 9:56 AM CST Daily Progress Subjective Chief complaint of vomiting. Interval History: Despite having NG suctioning the patient still had vomiting x2 last night she just is miserable abdominal pain persists it is a little bit more on the left of the midline on the epigastric area no bowel movement or flatus since yesterday she says she is breathing okay but still very nauseated Objective Vitals: 24hr Min/Max: Temp Min: 36.7 ??C (98 ??F) Max: 37.3 ??C (99.2 ??F) Pulse Min: 86 Max: 98 BP Min: 118/67 Max: 148/64 Resp Min: 16 Max: 19 SpO2 Min: 93 % Max: 100 % Most Recent : Vitals: 04/07/20 0737 BP: (!) 141/37 Pulse: 89 Resp: 18 Temp: 36.7 ??C (98 ??F) SpO2: 100% I/O last 2 completed shifts: In: 1397 [I.V.:1397] Out: 150 [Emesis/NG output:150] No intake/output data recorded. Physical Exam: Lungs: Clear to auscultation bilaterally, respirations unlabored Cardiovascular: Regular rate and rhythm, S1 and S2 normal, no murmur, rub or gallop, no edema, pulses 2+ and symmetric to all extremeties Abdomen: Soft, quiet abdomen NG is draining dark bilious looking material and significant amounts Extremities: Extremities normal, atraumatic, no cyanosis or edema, no clubbing Neurologic: Alert & oriented x 4, CNII-XII intact. Normal strength, sensation and reflexes throughout Lab/Radiology/Diagnostic Review: Laboratory review: Lab results in the last 12 hours: No results found for this or any previous visit (from the past 12 hour(s)). Assessment/Plan Principal Problem: Small bowel obstruction, partial (CMS/HCC) Let's check her electrolytes and also a follow-up obstructive x-ray series and will see what the surgeon recommends for next steps otherwise will continue the NG suction and IV fluids I spent 25 minutes interviewing and examining the patient reviewing her records writing orders and preparing this note ICATION HELPER documented in this encounter H&P Notes * Korey Randolph MD - 04/06/2020 5:22 PM CST General Medicine History and Physical Subjective Patient is a 80 y.o. female with chief complaint of abdominal pain and vomiting. HPI: The patient is a 80-year-old white female who has had some irritable bowel symptoms over the last few years treated with a high amount of Hawkins's bran with some success about 3 days ago she developed severe abdominal pain in the midepigastrium and then subsequent vomiting no fever no chills no cough or cold symptoms and she did have a small hard bowel movement yesterday after giving herself a suppository which was otherwise unremarkable. She presents to the ER her white blood cell count was elevated 18,[address] scan showed a partial small-bowel obstruction with the abnormality in the distal small bowel consistent with least a partial small-bowel obstruction she is not admitted the hospital for surgical consultation Past Medical History: Diagnosis Date ??? GERD (gastroesophageal reflux disease) ??? Hyperlipidemia Past Surgical History: Procedure Laterality Date ??? APPENDECTOMY ??? BLADDER NECK SUSPENSION ??? CHOLECYSTECTOMY ??? COLONOSCOPY 01/17/2014 ??? HYSTERECTOMY ??? UPPER GASTROINTESTINAL ENDOSCOPY (Not in a hospital admission) No Known Allergies Social History Tobacco Use ??? Smoking status: Never Smoker ??? Smokeless tobacco: Never Used Substance Use Topics ??? Alcohol use: Not on file History reviewed. No pertinent family history. The family history is negative for any cancer or premature heart disease or diabetes Review of Systems Constitutional: Positive for fatigue. Negative for chills, diaphoresis, fever and unexpected weightchange. HENT: Negative for congestion, hearing loss, postnasal drip, sneezing, sore throat, tinnitus and trouble swallowing. Eyes: Negative for visual disturbance. Respiratory: Negative for cough, shortness of breath and wheezing. Cardiovascular: Negative for chest pain, palpitations and leg swelling. Gastrointestinal: Positive for abdominal pain, constipation, nausea and vomiting. Negative for analbleeding, blood in stool and diarrhea. Endocrine: Negative for polydipsia, polyphagia and polyuria. [...] and sleep disturbance. Objective Vitals: Arrival Vitals [04/05/20 2221] Temp 37 ??C (98.6 ??F) Pulse 80 Resp 18 BP (!) 188/84 SpO2 96 % Temp src Temporal Heart Rate Source Patient Position BP Location FiO2 (%) 24hr Min/Max: Temp Min: 36.9 ??C (98.4 ??F) Max: 37 ??C (98.6 ??F) Pulse Min: 80 Max: 111 BP Min: 118/68 Max: 188/84 Resp Min: 12 Max: 19 SpO2 Min: 93 % Max: 100 % Most Recent : Vitals: 04/06/20 1630 BP: 140/65 Pulse: 86 Resp: 17 Temp: SpO2: 96% Physical exam: Physical Exam Vitals signs and nursing note reviewed. Constitutional: Appearance: She is well-developed. HENT: Head: Normocephalic and atraumatic. Right Ear: External ear normal. Left Ear: External ear normal. Nose: Nose normal. Eyes: Conjunctiva/sclera: Conjunctivae normal. Pupils: Pupils are equal, round, and reactive to light. Neck: Musculoskeletal: Normal range of motion and neck supple. Cardiovascular: Rate and Rhythm: Normal rate and regular rhythm. Heart sounds: Normal heart sounds. Pulmonary: Breath sounds: Normal breath sounds. Abdominal: General: Bowel sounds are normal. Palpations: Abdomen is soft. Comments: Quiet abdomen not distended no rebound or guarding or mass lesions that I could find liver and spleen were not enlarged there is no ascites no jaundice no scleral icterus or no pallor Genitourinary: Comments: Previous GILLIAN and unilateral oophorectomy and her gallbladder and her appendix are both said to be gone according to the patient Musculoskeletal: Normal range of motion. Skin: General: Skin is warm and dry. Neurological: Mental Status: She is alert and oriented to person, place, and time. Deep Tendon Reflexes: Reflexes are normal and symmetric. Lab/Radiology/Diagnostic Review: Recent Results (from the past 24 hour(s)) CBC with auto differential Collection Time: 04/05/20 10:30 PM Result Value Ref Range WBC 18.6 (H) 3.8 - 9.9 K/cumm Hgb 14.9 11.9 - 15.5 g/dL Hct 44.8 35.6 - 45.5 % Plt 241 150 - 400 K/cumm MPV 11.3 9.1 - 12.3 fL RBC 4.89 3.90 - 5.20 M/cumm MCV 91.6 81.3 - 96.4 fL MCH 30.5 27.1 - 33.3 pg MCHC 33.3 32.3 - 35.7 g/dL RDW CV 13.4 11.1 - 14.9 % RDW SD 45.4 35.7 - 48.1 fL NRBC abs 0.00 0.00 - 0.01 K/cumm Comprehensive metabolic panel Collection Time: 04/05/20 10:30 PM Result Value Ref Range Sodium 137 135 - 145 mmol/L Potassium, pl 4.0 3.3 - 4.9 mmol/L Chloride 100 97 - 110 mmol/L CO2 26 22 - 32 mmol/L Anion gap 11 2 - 15 mmol/L BUN 13 8 - 25 mg/dL Creatinine 0.66 0.60 - 1.10 mg/dL Glucose 140 70 - 199 mg/dL Calcium 10.6 (H) 8.5 - 10.3 mg/dL Bilirubin, total 0.4 0.1 - 1.2 mg/dL Protein, pl 6.8 6.5 - 8.5 g/dL Albumin 4.0 3.5 - 5.0 g/dL Alk phos 97 40 - 130 Units/L ALT 29 7 - 45 Units/L AST 20 10 - 45 Units/L Differential, auto Collection Time: 04/05/20 10:30 PM Result Value Ref Range Neutrophil abs 16.3 (H) 1.7 - 6.5 K/cumm Imm gran abs 0.1 0.0 - 0.1 K/cumm Lymphocyte abs 1.0 0.8 - 3.3 K/cumm Monocyte abs 1.1 (H) 0.2 - 0.8 K/cumm Eosinophil abs 0.1 0.0 - 0.5 K/cumm Basophil abs 0.1 0.0 - 0.1 K/cumm Neutrophil pct 87.6 % Imm gran pct 0.5 % Lymphocyte pct 5.6 % Monocyte pct 5.7 % Eosinophil pct 0.3 % Basophil pct 0.3 % eGFR Collection Time: 04/05/20 10:30 PM Result Value Ref Range GFR 84 mL/min/1.73 m2 Lipase Collection Time: 04/05/20 10:51 PM Result Value Ref Range Lipase 26 10 - 99 Units/L Sepsis Lactate w/ Reflex Collection Time: 04/06/20 1:13 AM Result Value Ref Range Sepsis Lactate 1.4 0.7 - 2.0 mmol/L Urinalysis reflex to microscopic and culture Urine Collection Time: 04/06/20 6:35 AM Specimen: Urine Result Value Ref Range Color, ur Yellow Yellow Clarity, ur Turbid (A) Clear Specific gravity, ur 1.025 1.010 - 1.025 pH, urine 8.5 Protein, ur ql Trace Negative Glucose, ur ql Negative Negative Ketones, ur 3+ (A) Negative Bilirubin, ur Negative Negative Blood, ur Negative Negative Urobilinogen, ur 2.0 (A) <2.0 mg/dL Nitrite, ur Negative Negative Leukocyte esterase, ur Negative Negative UA reflex comment Reflex conditions for microscopic UA and culture not met. Ct Abdomen Pelvis W Contrast Result Date: 04/06/2020 Narrative: [facility] Result Name: MEGHANA LOYA Ordering Phys: BRIDGET BRITNEY Age: 80 Date of : 1940 Accession Number: [id number] Date of Service: 04/06/2020 Gender: F EXAM DESCRIPTION: CT ABDOMEN PELVIS W CONTRAST REASON FOR STUDY: 80 year old female with a PMHx of GERD, s/p hysterectomy, s/p cholecystectomy, s/p appendectomyand HLD who presents to the ED with a chief complaint of epigastric and left-sided abdominal pain with nausea and vomiting that began around 7:00AM this morning. 100ML Opti 320 via 20G left armDuration: 1 day TECHNIQUE: CT scan of the abdomen and pelvis performed with intravenous and without oral contrast using helical scanning technique with dynamic intravenous contrast injection. Reconstructed coronal and sagittal MPR images reviewed. All images stored on PACS. Automated exposure control was used as a dose optimization technique for this examination. CONTRAST TYPE/DOSE: 100ml of opti 320 injected via left arm COMPARISON: 08/14/2019 LOWER CHEST: Bibasilar atelectatic change. Visualized lower mediastinum is unremarkable. LIVER: No identified cystic or solid masses on single phase imaging.Minimal intrahepatic ductal dilatation. GALLBLADDER: Surgically absent. BILE DUCTS: Prominent biliary system, likely related to post cholecystectomy state. SPLEEN: No focal lesions. PANCREAS: Small subcentimeter hypodensities within uncinate process of the pancreas, likely reflecting small cystic lesions. Recommend follow-up MRI in 12 months. Pancreatic divisum. No significant calcifications. No adjacent inflammation or peripancreatic fluid collections. Pancreatic duct not dilated. ADRENALS: Unremarkable. KIDNEYS/URINARY TRACT: 0.4 cm hypodensity at the superior pole of the right kidney, incompletely characterized. No visualized stones. No hydronephrosis or hydroureter. Symmetric enhancement. Bladder is partially decompressed, limiting evaluation. GI: Evaluation the gastrointestinal tractis limited by lack of distention and bowel prep. Small hiatal hernia. Proximal stomach is unremarkab le. Appearance of the distal gastric wall is likely related to lack of distention. There is mild fluid-filled distention of multiple small bowel loops measuring up to 3 cm with transition point at a thickened loop of small bowel in the right lower quadrant (axial image 99-105). There is fecal like material within the distal small bowel, suggesting a more chronic process. Scattered diverticular disease without evidence of acute diverticulitis. No abnormal colonic wall thickening identified by CT. Mild colonic stool burden. PERITONEUM: Small amount of intra-free fluid measuring simple density in layering within right lower abdomen and pelvis. RETROPERITONEUM: No mass or adenopathy. REPRODUCTIVE: No significant abnormality. VASCULATURE: No abdominal aortic aneurysm. MUSCULOSKELETAL: No significant abnormality. OTHER: No additional significant abnormality. Impression: 1. Partial small bowel obstruction with transition point in the right lower quadrant anita focally thickened/inflamed loop of small bowel which is suspicious for inflammatory/infectious etiology. 2. Mild intra-abdominal free fluid. 3. Small subcentimeter hypodensities within the uncinateprocess of pancreas, likely reflective of small cystic lesions. Recommend follow-up MRI in 12 months after consideration to patient age. At approximately 12:27 am on 04/06/2020, initial attempt was made to contact the referring clinician; this case was discussed in detail with acknowledgement via telephone with Dr. Bell at 12:46 a.m.. THIS IS AN ELECTRONICALLY VERIFIED FINAL REPORT 04/06/2020 12:47 AM - Electronically signed by Giovany Cox BG: BG Report ID: [id number] Reading Location: [id number] Xr Kub (abd 1 View) Result Date: 04/06/2020 Narrative: EXAMINATION: XR KUB ORDERING HEALTHCARE PROVIDER: BRIDGET BELL HISTORY: Nasogastric tube placement COMPARISON: 04/06/2020 TECHNIQUE: Supine radiograph(s) of the abdomen and pelvis. FINDINGS: There is been interval partial retraction of a nasogastric tube with tip terminating in thegastric cardia and side-port at the distal esophagus. This can be advanced approximately 9 cm. Thebowel gas pattern is normal. Surgical clips are noted. Impression: 1. Interval partial retraction of the nasogastric tube with tip terminating in the gastric cardia side-port at the distal esophagus. This can be advanced approximately 9 cm. Electronically signed by: Nilson Lara M.D. Xr Kub (abd 1 View) Result Date: 04/06/2020 Narrative: [facility] Result Name: MEGHANA LOYA Ordering Phys: BRIDGET BELL Age: 80 Date of : 1940 Accession Number: [id number] Date of Service: 04/06/2020 Gender: F EXAM DESCRIPTION: XR KUB REASON FOR STUDY: NGT placementDuration: prior to xr TECHNIQUE: KUB COMPARISON: 04/05/2019 LINES/TUBES: Enteric tube terminates within the stomach. BOWEL: Gas-filled bowel loops. OTHER SOFT TISSUES: Unremarkable. BONES: Unremarkable. Impression: Enteric tube terminates in the stomach. THIS IS AN ELECTRONICALLY VERIFIED FINAL REPORT04/06/2020 3:56 AM - Electronically signed by Ej Bertrand M.D. AR: CLAUDINE Report ID: [id number] Reading Location: [place] [id number] Assessment /Plan Principal Problem: Small bowel obstruction, partial (CMS/HCC) Small-bowel obstruction in a woman with previous abdominal surgeries and previous constipation predominant irritable bowel syndrome. Our plan is to give her IV fluids and NG suction and symptomatic treat with pain and nausea medicine she will be seen by surgery and serial abdominal exams and obstructive series can be done I spent 50 minutes interviewing and examining the patient reviewing her records communicating with the emergency room physician and writing admission orders and preparing this note ICATION HELPER ICATION HELPER documented in this encounter Consult Notes * Dior Harper NP - 04/06/2020 1:48 PM CST General Surgery Consult Reason for Consult: No data found Requesting Provider: Subjective Patient is a 80 y.o. female with chief complaint of abdominal pain. HPI: Patient states for the last 3 days she had some left sided and epigastric abdominal pain. This was associated with nausea and vomiting. She denies hematemesis. She states she felt hot but did not have fever or chills. She thought her issue was constipation and so she used an enema which produced a s mall hard stool. This did not resolve her abdominal pain or vomiting. She past some gas yesterday. She has been following up with for gi issues and states he has her on a special diet but she hasnt been following this over the last few weeks due to the holidays. In er her white count noted to be high at 18. Ct imaging demonstrated small hiatal hernia, mild fluid filled distention of multiple small bowel loops with transition point with thickened loop of small bowel in the right lower quadrant and fecal like material in the distal small bowel *partial small bowel obstruction. Of note the patient had trauma in the past resulting in lower midline surgical incision. Past Medical History: Diagnosis Date ??? GERD (gastroesophageal reflux disease) ??? Hyperlipidemia Past Surgical History: Procedure Laterality Date ??? APPENDECTOMY ??? BLADDER NECK SUSPENSION ??? CHOLECYSTECTOMY ??? COLONOSCOPY 01/17/2014 ??? HYSTERECTOMY ??? UPPER GASTROINTESTINAL ENDOSCOPY HOME MEDICATIONS : aspirin 81 mg tablet atorvastatin (LIPITOR) 10 mg tablet cholecalciferol (VITAMIN D-3) 1,000 unit capsule cyanocobalamin, vitamin B-12, (CYANOCOBALAMIN,VIT B-12,,BULK,) powder fluticasone propionate (FLONASE) 50 mcg/actuation nasal spray LORazepam (ATIVAN) 0.5 mg tablet montelukast (SINGULAIR) 10 mg tablet multivitamin,tx-minerals (VITAMINS AND MINERALS) tablet pantoprazole DR (PROTONIX) 40 mg EC tablet vitamin E 400 unit capsule No Known Allergies Social History Tobacco Use ??? Smoking status: Never Smoker ??? Smokeless tobacco: Never Used Substance Use Topics ??? Alcohol use: Not on file History reviewed. No pertinent family history. Review of Systems: Review of systems per HPI and otherwise all other systems are negative Vitals: 24hr Min/Max: Temp Min: 37 ??C (98.6 ??F) Max: 37 ??C (98.6 ??F) Pulse Min: 80 Max: 111 BP Min: 118/68 Max: 188/84 Resp Min: 12 Max: 19 SpO2 Min: 93 % Max: 100 % Most Recent : Vitals: 04/06/20 1245 BP: 123/60 Pulse: 87 Resp: 19 Temp: SpO2: 96% I/O last 2 completed shifts: In: 1000 [IV Piggyback:1000] Out: - No intake/output data recorded. Objective Physical Exam: General appearance: appears stated age, cooperative and mild distress Head: Normocephalic, without obvious abnormality, atraumatic Eyes: conjunctivae/corneas clear. PERRL Lungs: unlabored Heart: regular rate and rhythm Abdomen:soft, non-tender; bowel sounds normal; no masses, no organomegaly Extremities: extremities normal, warm and well-perfused Pulses: 2+ and symmetric Skin: Skin color, texture, turgor normal. No rashes or lesions Neurologic: Alert and oriented x4, non-focal ASA Classification:II Lab/Radiology/Diagnostic Review: Laboratory review: Lab results in the last 24 hours: Recent Results (from the past 24 hour(s)) CBC with auto differential Collection Time: 04/05/20 10:30 PM Result Value Ref Range WBC 18.6 (H) 3.8 - 9.9 K/cumm Hgb 14.9 11.9 - 15.5 g/dL Hct 44.8 35.6 - 45.5 % Plt 241 150 - 400 K/cumm MPV 11.3 9.1 - 12.3 fL RBC 4.89 3.90 - 5.20 M/cumm MCV 91.6 81.3 - 96.4 fL MCH 30.5 27.1 - 33.3 pg MCHC 33.3 32.3 - 35.7 g/dL RDW CV 13.4 11.1 - 14.9 % RDW SD 45.4 35.7 - 48.1 fL NRBC abs 0.00 0.00 - 0.01 K/cumm Comprehensive metabolic panel Collection Time: 04/05/20 10:30 PM Result Value Ref Range Sodium 137 135 - 145 mmol/L Potassium, pl 4.0 3.3 - 4.9 mmol/L Chloride 100 97 - 110 mmol/L CO2 26 22 - 32 mmol/L Anion gap 11 2 - 15 mmol/L BUN 13 8 - 25 mg/dL Creatinine 0.66 0.60 - 1.10 mg/dL Glucose 140 70 - 199 mg/dL Calcium 10.6 (H) 8.5 - 10.3 mg/dL Bilirubin, total 0.4 0.1 - 1.2 mg/dL Protein, pl 6.8 6.5 - 8.5 g/dL Albumin 4.0 3.5 - 5.0 g/dL Alk phos 97 40 - 130 Units/L ALT 29 7 - 45 Units/L AST 20 10 - 45 Units/L Differential, auto Collection Time: 04/05/20 10:30 PM Result Value Ref Range Neutrophil abs 16.3 (H) 1.7 - 6.5 K/cumm Imm gran abs 0.1 0.0 - 0.1 K/cumm Lymphocyte abs 1.0 0.8 - 3.3 K/cumm Monocyte abs 1.1 (H) 0.2 - 0.8 K/cumm Eosinophil abs 0.1 0.0 - 0.5 K/cumm Basophil abs 0.1 0.0 - 0.1 K/cumm Neutrophil pct 87.6 % Imm gran pct 0.5 % Lymphocyte pct 5.6 % Monocyte pct 5.7 % Eosinophil pct 0.3 % Basophil pct 0.3 % eGFR Collection Time: 04/05/20 10:30 PM Result Value Ref Range GFR 84 mL/min/1.73 m2 Lipase Collection Time: 04/05/20 10:51 PM Result Value Ref Range Lipase 26 10 - 99 Units/L Sepsis Lactate w/ Reflex Collection Time: 04/06/20 1:13 AM Result Value Ref Range Sepsis Lactate 1.4 0.7 - 2.0 mmol/L Urinalysis reflex to microscopic and culture Urine Collection Time: 04/06/20 6:35 AM Specimen: Urine Result Value Ref Range Color, ur Yellow Yellow Clarity, ur Turbid (A) Clear Specific gravity, ur 1.025 1.010 - 1.025 pH, urine 8.5 Protein, ur ql Trace Negative Glucose, ur ql Negative Negative Ketones, ur 3+ (A) Negative Bilirubin, ur Negative Negative Blood, ur Negative Negative Urobilinogen, ur 2.0 (A) <2.0 mg/dL Nitrite, ur Negative Negative Leukocyte esterase, ur Negative Negative UA reflex comment Reflex conditions for microscopic UA and culture not met. Imaging review: I have reviewed the result(s) ct abd and pelvis Assessment /Plan ng decompression, repeat kub in the morning, npo, iv antibiotics. Serial abd exams. Principal Problem: Small bowel obstruction, partial (CMS/HCC) Cosigned by Babak Tinoco MD at 04/06/2020 5:49 PM APPLICATION HELPER ICATION HELPER ICATION HELPER documented in this encounter Nursing Notes * Monica Rob RN - 04/10/2020 4:32 PM CST Patient discharged to home via personal vehicle accompanied by friend. Discharge instructions reviewed with patient and/or food service representative. Mobile pharmacy medications and/or prescriptions provided. Belongings/home medications returned. ICATION HELPER * Monica Rob RN - 04/10/2020 2:33 PM CST Assessment of patient???s baseline is established at the beginning of the shift in flowsheets. Patient reassessed per order, unexpected findings and/or deviations from baseline are captured in flowsheets. Frequent safety checks and comfort rounds provided. Orders and/or nursing care completed as indicated. Patient monitored for response to interventions and treatments as documented in flowsheets.Pt is resting in bed. Pt has been ambulating in room and using incentive spirometer. Pt anxious to be discharged. Pt tolerating Gi soft diet. Education provided includes Discharge Planning, Fall Prevention, Self-Injurious Behavior Risk and Treatments/Therapies: Incentive spirometer.. Patient and/or food service representative Verbalizes understanding. ICATION HELPER * Lizzeth Yancey RN - 04/10/2020 4:07 AM CST Pt in bed resting. C/o pain x1. Prn meds given. No c/o nausea. No anxiety noted. Vss. Skin w/d. Pt up with steady gait. ivfs and abx cont. Will cont. With plan of care. ICATION HELPER * Monica Rob RN - 04/09/2020 6:31 PM CST Assessment of patient???s baseline is established at the beginning of the shift in flowsheets. Patient reassessed per order, unexpected findings and/or deviations from baseline are captured in flowsheets. Frequent safety checks and comfort rounds provided. Orders and/or nursing care completed as indicated. Patient monitored for response to interventions and treatments as documented in flowsheets.Pt is up ind and has IVF and IV abx. Education provided includes Discharge Planning, Fall Prevention, Pain Management and Skin Breakdown Prevention/Treatment. Patient and/or food service representative Verbalizesunderstanding. ICATION HELPER * Evelyn Cochran RN - 04/08/2020 8:00 AM CST NG tube advanced 4cm per X-ray recommendation. ICATION HELPER documented in this encounter ED Notes * Bridget Bell MD - 04/05/2020 11:07 PM CST HPI Chief Complaint Patient presents with ??? Abdominal Pain 10:30 PM 04/05/2020 Meghana Loya, non-smoker, is a 80 year old female with a PMHx of GERD, s/p hysterectomy, s/p cholecystectomy, s/p appendectomy and HLD who presents to the ED with a chief complaint of epigastric andleft-sided abdominal pain that began around 7:00AM this morning. Patient reports the abdominal painhas been constant since onset, noting that she vomited x3 with a mild cough. Notes that she hasn't had normal bowel movements, after using a suppository today she was only able to pass a small amountof stool. She states that pain worsens with movement. Patient claims she had an upper endoscopy done around August 2019 for similar symptoms and was informed by Dr. Ross that she as experiencing spasms of her colon. Dr. Ross believed they were due to her diet, patient states that due to the holidays she hasn't been following the diet he provided her. Denies fever, chills, SOB, diarrhea, blood in stool or myalgias. 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 Small bowel obstruction, partial (CMS/HCC) 04/06/2020 ??? Stricture and stenosis of esophagus 08/15/2019 ??? Gastroesophageal reflux disease 08/15/2019 ??? Abdominal pain, epigastric 08/15/2019 ??? Intermittent epigastric abdominal pain 08/14/2019 ??? LLQ pain 08/14/2019 ??? Spondylosis of lumbar region without myelopathy or radiculopathy 06/26/2019 ??? Gastroesophageal reflux disease without esophagitis 10/07/2016 ??? Mixed hyperlipidemia 10/07/2016 ??? Esophageal stricture 10/07/2016 ??? Macular degeneration, dry 10/07/2016 ??? Vitamin D deficiency 10/07/2016 Past Medical History: Diagnosis Date ??? GERD (gastroesophageal reflux disease) ??? Hyperlipidemia Past Surgical History: Procedure Laterality Date ??? APPENDECTOMY ??? BLADDER NECK SUSPENSION ??? CHOLECYSTECTOMY ??? COLONOSCOPY 01/17/2014 ??? HYSTERECTOMY ??? UPPER GASTROINTESTINAL ENDOSCOPY No family history on file. Social History Tobacco Use ??? Smoking status: Never Smoker ??? Smokeless tobacco: Never Used Substance Use Topics ??? Alcohol use: Not on file ??? Drug use: Not on file Social History Social History Narrative ??? Not on file Review of Systems Review of Systems Constitutional: Negative for chills and fever. HENT: Negative for congestion and sore throat. Eyes: Negative for pain and visual disturbance. Respiratory: Positive for cough. Negative for shortness of breath and wheezing. Cardiovascular: Negative for chest pain, palpitations and leg swelling. Gastrointestinal: Positive for abdominal pain and diarrhea. Negative for blood in stool, nausea andvomiting. Genitourinary: Negative for difficulty urinating, dysuria and frequency. Neurological: Negative for weakness and headaches. All other systems reviewed and are negative. Physical Exam ED Triage Vitals [04/05/20 2221] Temp Pulse Resp BP SpO2 37 ??C (98.6 ??F) 80 18 (!) 188/84 96 % Temp src Heart Rate Source Patient Position BP Location FiO2 (%) Temporal -- -- -- -- Physical Exam Vitals signs and nursing note reviewed. Constitutional: Appearance: She is well-developed. Comments: Appears uncomfortable, complaining of severe abdominal pain. HENT: Head: Normocephalic. Nose: Nose normal. Eyes: Conjunctiva/sclera: Conjunctivae normal. Pupils: Pupils are equal, round, and reactive to light. Neck: Musculoskeletal: Normal range of motion and neck supple. Cardiovascular: Rate and Rhythm: Normal rate and regular rhythm. Heart sounds: Normal heart sounds. Pulmonary: Effort: Pulmonary effort is normal. Breath sounds: Normal breath sounds. Abdominal: General: Bowel sounds are normal. There is distension. Palpations: Abdomen is soft. Tenderness: There is abdominal tenderness (diffuse). There is guarding and rebound. Comments: Most tenderness noted to be in the left mid and left lower regions. Musculoskeletal: Normal range of motion. Skin: General: Skin is warm and dry. Neurological: Mental Status: She is alert and oriented to person, place, and time. Labs Reviewed CBC WITH AUTO DIFFERENTIAL - Abnormal Result Value WBC 18.6 (*) Hgb 14.9 Hct 44.8 Plt 241 MPV 11.3 RBC 4.89 MCV 91.6 MCH 30.5 MCHC 33.3 RDW CV 13.4 RDW SD 45.4 NRBC abs 0.00 COMPREHENSIVE METABOLIC PANEL - Abnormal Sodium 137 Potassium, pl 4.0 Chloride 100 CO2 26 Anion gap 11 BUN 13 Creatinine 0.66 Glucose 140 Calcium 10.6 (*) Bilirubin, total 0.4 Protein, pl 6.8 Albumin 4.0 Alk phos 97 ALT 29 AST 20 DIFFERENTIAL AUTO - Abnormal Neutrophil abs 16.3 (*) Imm gran abs 0.1 Lymphocyte abs 1.0 Monocyte abs 1.1 (*) Eosinophil abs 0.1 Basophil abs 0.1 Neutrophil pct 87.6 Imm gran pct 0.5 Lymphocyte pct 5.6 Monocyte pct 5.7 Eosinophil pct 0.3 Basophil pct 0.3 URINALYSIS AND REFLEX TO MICROSCOPIC AND CULTURE LIPASE Lipase 26 EGFR GFR 84 SEPSIS LACTATE WITH REFLEX Sepsis Lactate 1.4 XR Kub (Abd 1 View) Final Result Enteric tube terminates in the stomach. THIS IS AN ELECTRONICALLY VERIFIED FINAL REPORT 04/06/2020 3:56 AM - Electronically signed by Ej Bertrand M.D. AR: CLAUDINE Report ID: [id number] Reading Location: [id number] CT Abdomen Pelvis W Contrast Final Result 1. Partial small bowel obstruction with transition point in the right lower quadrant at a focally thickened/inflamed loop of small bowel which is suspicious for inflammatory/infectious etiology. 2. Mild intra-abdominal free fluid. 3. Small subcentimeter hypodensities within the uncinate process of pancreas, likely reflective of small cystic lesions. Recommend follow-up MRI in 12 months after consideration to patient age. At approximately 12:27 am on 04/06/2020, initial attempt was made to contact the referring clinician; this case was discussed in detail with acknowledgement via telephone with Dr. Bell at 12:46 a.m.. THIS IS AN ELECTRONICALLY VERIFIED FINAL REPORT 04/06/2020 12:47 AM - Electronically signed by Giovany Cox BG: BG Report ID: [id number] Reading Location: [id number] BP 131/71 Pulse 103 Temp 37 ??C (98.6 ??F) (Temporal) Resp 19 Ht 149.9 cm (4' 11 ) Wt 63.5 kg (139 lb 15.9 oz) LMP (LMP Unknown) SpO2 96% BMI 28.27 kg/m?? Procedures [facility] ED Course as of Apr 06 515 Time: 04/06 35 Comment: Clinical radialogsit Dr. Teran reports an area of focal thickening of the colon in the RLQ and a partial SBO. By: Cadence Yan Time: 04/06 111 Comment: Updated patient and on lab and imaging. Informed the patient of partial SBO and inflammation of section of small bowel. Discussed plans for admission with a consult with surgery. Allquestions were answered at this time, patient and agreeable with admission. By: Cadence Yan Time: 04/06 114 Comment: reports that she has had episodes of this pain over the last few weeks. By: Cadence Yan Time: 04/06 126 Comment: Case discussed with Dr. Amos(GI), who agrees to consult. By: Cadence Yan Time: 04/06 415 Comment: Case discussed with Dr. Randolph(PCP), who accepts the patient for admission. By: Cadence Yan Final diagnoses: Small bowel obstruction, partial (CMS/[facility]) ATTESTATION STATEMENT ICadence, scribed for Bridget Bell MD in the doctor's presence. I electronically signed this note 5:18 AM on 04/06/2020. I, Bridget Bell, have personally performed the services described in the documentation , reviewed the documentation, as recorded by the scribe in my presence, and it accurately and completely records my words and actions. Bridget Bell MD 04/06/20 0518 ICATION HELPER * Evelyn Marrero RN - 04/05/2020 10:[address] Hogan in August, was told she has spasms in her bowl and she was not eating right, needed to eat 3 fruits a day and to eat millers wheat-bran 2 tble spoons daily. States over the holidays she has not been as diligent to her diet change. 4 days ago she had an attack like she did before seeing Samira. She vomited once and her stomach settled after than, 2 days later (Monday night) she had another attack, emesis x 1 and it settled down for the most part. But this morning she started having the same pain again and has vomited x 3 since 2099. She reports not having regular BM's and she used a suppository which gave small results and no relief from pain. Received: 50 mcg fentanyl IVP 4mg Zofran IVP Brought pain from 10 to 5, but pain is now getting worse again. ICATION HELPER documented in this encounter Miscellaneous Notes * Provider Query - Korey Randolph MD - 04/09/2020 10:25 AM CST Specify a diagnosis that accurately reflects the lab findings, and document in the medical record and on the form below. ___Hyponatremia ___Abnormal laboratory findings, inconclusive diagnosis _xxx__Clinically insignificant abnormal laboratory findings ___Other, specify below ___Clinically unable to determine Additional Provider Response: Those sodium levels are barely high No significant problem Clinical Indicators/Treatments: 80 y o F admitted partial obstruction, hx of hld, gerd - on 04/07 na 144, 04/08 na 146, 04/09 na 147, ngt to decompression, on ivf - monitor ivf, cont ns 125 ml/hr Use of terms such as likely, suspected, possible, or probable (associated with a specific diagnosisthat is being evaluated, monitored, or treated as if it exists) are acceptable and can be coded in the inpatient setting when documented at the time of discharge. This documentation will become part of the patient???s medical record. Sincerely, Jami Clancy RN, CDS Clinical Front Of House Manager [phone] ICATION HELPER * Provider Query - Korey Randolph MD - 04/09/2020 10:22 AM CST Specify a diagnosis that accurately reflects the lab findings, and document in the medical record and on the form below. _xxx__Hypokalemia ___Abnormal laboratory findings, inconclusive diagnosis ___Clinically insignificant abnormal laboratory findings ___Other, specify below ___Clinically unable to determine Additional Provider Response: Low potassium predictable from NG suction and vomiting Will replace IV Clinical Indicators/Treatments: 80 y o F admitted with sm bowel obstruction, hx of hld, gerd - 04/05 potassium 4.0, 04/07 K 3.5, 04/08 K 3.0, 04/09 K 3.1, no changes in tele, given replacement - monitor potassium, electrolyte replacement protocol, give po potassium Use of terms such as likely, suspected, possible, or probable (associated with a specific diagnosisthat is being evaluated, monitored, or treated as if it exists) are acceptable and can be coded in the inpatient setting when documented at the time of discharge. This documentation will become part of the patient???s medical record. Sincerely, Jami Clancy RN, CDS Clinical Front Of House Manager [phone] ICATION HELPER * Plan of Care - Janine Brooks RN - 04/09/2020 2:52 AM CST Goals: Clinical Goals for the Shift: Pt to remain free of injury, VSS, pain management Summary: Pt is alert and orientated and has been resting comfortably this shift. VSS and pain medication was administered x1 this shift for pain. NG tube in place and is draining dark green fluid. Bowl sounds active in all 4 quadrants. Pt reports that she has had x2 occurrences of diarrhea. Will continue to monitor and treat pt as needed. ICATION HELPER * Plan of Care - Evelyn Cochran RN - 04/08/2020 5:50 PM CST Problem: Health Behavior: Goal: Understanding of discharge needs will improve Outcome: Progressing Problem: Activity: Goal: Risk for activity intolerance will decrease Outcome: Progressing Problem: Lack of Knowledge: Goal: Knowledge of diagnostic tests will improve Outcome: Progressing Goal: Knowledge of disease or condition will improve Outcome: Progressing Goal: Knowledge of safety precautions will improve Outcome: Progressing Goal: Knowledge of the prescribed therapeutic regimen will improve Outcome: Progressing Problem: Health Behavior: Goal: Ability to state signs and symptoms to report to health care provider will improve Outcome: Progressing Problem: Physical Regulation: Goal: Ability to maintain clinical measurements within normal limits will improve Outcome: Progressing Problem: Infection Risk: Goal: Will remain free from infection Outcome: Progressing Problem: Safety: Goal: Ability to remain free from injury will improve Outcome: Progressing Goal: Will remain free from falls Outcome: Progressing Problem: Self-Care: Goal: Ability to participate in self-care as condition permits will improve Outcome: Progressing Problem: Sensory: Goal: Pain level will decrease Outcome: Progressing Goal: Ability to develop a pain control plan will improve Outcome: Progressing Problem: Skin Integrity: Goal: Risk for impaired skin integrity will decrease Outcome: Progressing Problem: Tissue Perfusion: Goal: Risk factors for ineffective tissue perfusion will decrease Outcome: Progressing Problem: Lack of Knowledge: Goal: Complications related to the disease process, condition or treatment will be avoided or minimized Outcome: Progressing Problem: Activity: Goal: Ability to tolerate increased activity will improve Outcome: Progressing Problem: Bowel/Gastric: Goal: Establishment of normal bowel function will improve Outcome: Progressing Problem: Lack of Knowledge: Goal: Knowledge of disease or condition and prescribed therapeutic regimen will improve Outcome: Progressing Problem: Coping: Goal: Level of anxiety will decrease Outcome: Progressing Problem: Fluid Volume: Goal: Will regain and/or maintain a balanced intake and output Outcome: Progressing Problem: Nutritional: Goal: Nutritional status will improve Outcome: Progressing Problem: Physical Regulation: Goal: Complications related to the disease process, condition or treatment will be avoided or minimized Outcome: Progressing Problem: Sensory: Goal: Pain level will decrease Outcome: Progressing Problem: Activity: Goal: Risk for activity intolerance will decrease Outcome: Progressing Problem: Lack of Knowledge: Goal: Knowledge of disease or condition will improve Outcome: Progressing Goal: Ability to state and carry out methods to decrease the pain will improve Outcome: Progressing Problem: Nutritional: Goal: Nutritional status will be supported Outcome: Progressing Problem: Fluid Volume: Goal: Maintenance of adequate hydration will improve Outcome: Progressing Problem: Health Behavior: Goal: Ability to state signs and symptoms to report to health care provider will improve Outcome: Progressing Problem: Physical Regulation: Goal: Complications related to the disease process, condition or treatment will be avoided or minimized Outcome: Progressing Goal: Ability to maintain clinical measurements within normal limits will improve Outcome: Progressing Problem: Sensory: Goal: Ability to identify factors that increase the pain will improve Outcome: Progressing Goal: Ability to notify healthcare provider of pain before it becomes unmanageable or unbearable will improve Outcome: Progressing Goal: Pain level will decrease Outcome: Progressing Problem: Lack of Knowledge: Goal: Ability to state ways to decrease the risk of falls will improve Outcome: Progressing Problem: Safety: Goal: Will remain free from falls Outcome: Progressing Goal: Will remain free from injury from falls Outcome: Progressing Goal: Will remain free from falls and injury in home environment Outcome: Progressing Goals: Clinical Goals for the Shift: Stable VS/labs. Improved abdominal pain. No falls/injuries. Summary: A/Ox4. Patient medicated for pain x3 today. Connected to NG tube. K low this AM, given 40mEq IV x1. She is resting comfortably at this time. IVF infusing. Will continue to monitor and medicate as needed and as ordered. ICATION HELPER * Plan of Care - [place] Ho RN - 04/08/2020 6:08 AM CST Problem: Health Behavior: Goal: Understanding of discharge needs will improve Outcome: Progressing Problem: Activity: Goal: Risk for activity intolerance will decrease Outcome: Progressing Problem: Lack of Knowledge: Goal: Knowledge of diagnostic tests will improve Outcome: Progressing Goal: Knowledge of disease or condition will improve Outcome: Progressing Goal: Knowledge of safety precautions will improve Outcome: Progressing Goal: Knowledge of the prescribed therapeutic regimen will improve Outcome: Progressing Problem: Health Behavior: Goal: Ability to state signs and symptoms to report to health care provider will improve Outcome: Progressing Problem: Physical Regulation: Goal: Ability to maintain clinical measurements within normal limits will improve Outcome: Progressing Problem: Infection Risk: Goal: Will remain free from infection Outcome: Progressing Problem: Self-Care: Goal: Ability to participate in self-care as condition permits will improve Outcome: Progressing Goals: Clinical Goals for the Shift: free from injury, adequate rest, adequate pain control, vitals, labs within normal limits, decrease in abdominal pain, decrease in nausea, heartburn Summary: pt much better tonight. Pain decreased significantly from previous night. Scheduled medications given as ordered. Pain medications given x 2, zofran given x 2. Pt did report nausea, but no emesis tonight. IV fluids infusing as ordered. 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 ICATION HELPER * Plan of Care - Ayesha Cody RN - 04/07/2020 3:39 PM CST Goals: Clinical Goals for the Shift: pain and nausea control, continue with NG to decompress the ABD Summary: Pt is alert and oriented, up to the BSC independently, continued complaints of pain the left mid upper ABD radiating to her lower left ABD, describes as stabbing and burning. Pt had ABD Xraythis morning and showed that the NG needed advanced. NG was advanced 8 cm and pt stated that her heartburn has resolved and hiccups are better. NS infusing at 125 ml/hr. ICATION HELPER * Plan of Care - [place] Ho RN - 04/07/2020 7:33 AM CST Problem: Health Behavior: Goal: Understanding of discharge needs will improve Outcome: Progressing Problem: Activity: Goal: Risk for activity intolerance will decrease Outcome: Progressing Problem: Lack of Knowledge: Goal: Knowledge of diagnostic tests will improve Outcome: Progressing Goal: Knowledge of disease or condition will improve Outcome: Progressing Goal: Knowledge of safety precautions will improve Outcome: Progressing Goal: Knowledge of the prescribed therapeutic regimen will improve Outcome: Progressing Problem: Health Behavior: Goal: Ability to state signs and symptoms to report to health care provider will improve Outcome: Progressing Problem: Physical Regulation: Goal: Ability to maintain clinical measurements within normal limits will improve Outcome: Progressing Problem: Infection Risk: Goal: Will remain free from infection Outcome: Progressing Problem: Safety: Goal: Ability to remain free from injury will improve Outcome: Progressing Goal: Will remain free from falls Outcome: Progressing Problem: Self-Care: Goal: Ability to participate in self-care as condition permits will improve Outcome: Progressing Problem: Sensory: Goal: Pain level will decrease Outcome: Not Progressing Goal: Ability to develop a pain control plan will improve Outcome: Progressing Problem: Tissue Perfusion: Goal: Risk factors for ineffective tissue perfusion will decrease Outcome: Progressing Problem: Skin Integrity: Goal: Risk for impaired skin integrity will decrease Outcome: Progressing Problem: Lack of Knowledge: Goal: Complications related to the disease process, condition or treatment will be avoided or minimized Outcome: Progressing Problem: Activity: Goal: Ability to tolerate increased activity will improve Outcome: Not Progressing Problem: Coping: Goal: Level of anxiety will decrease Outcome: Progressing Goals: Clinical Goals for the Shift: free from injury, adequate rest, adequate pain control, vitals, labs within normal limits, decrease in nausea and vomiting Summary: Pt A&Ox4, medicated for pain x 3 this shift. Pt did have emesis x 2 this shift. IV fluids infusing as ordered, IV abx given as ordered. NG draining dark green bile. ICATION HELPER * Plan of Care - Ayesha Cody RN - 04/06/2020 6:38 PM CST Goals: Clinical Goals for the Shift: pain control, bowel movement, and decompress the ABD to reslove SBO Summary: Pt admitted to the floor this evening from the ED. Pt is alert and oriented, complaints ofpain to mid epigastric radiating to lower left ABD, described at Stabbing and burning. NG to the Left nare placed to low intermittent suction with green bile noted. NS infusing at 125 ml/hr. 2 RN skin check preformed and no skin issues note. Pt does appear slightly diaphoretic and flushed. Pt significant other is at the bedside. Pt stated her last BM was yesterday, but that was after using a suppository, and it was very small. Pt is NPO. ICATION HELPER documented in this encounter Plan of Treatment Not on file documented as of this encounter Procedures Procedure Name Priority Date/Time Associated Diagnosis Comments EGFR Routine 04/10/2020 5:32 AM APPLICATION HELPER CBC WITHOUT DIFFERENTIAL Routine 04/10/2020 5:32 AM APPLICATION HELPER BASIC METABOLIC PANEL Routine 04/10/2020 5:32 AM APPLICATION HELPER EGFR Routine 04/09/2020 5:24 AM APPLICATION HELPER CBC WITHOUT DIFFERENTIAL Routine 04/09/2020 5:24 AM APPLICATION HELPER BASIC METABOLIC PANEL Routine 04/09/2020 5:24 AM APPLICATION HELPER FL SMALL BOWEL SERIES IP Routine 04/08/2020 12:42 PM APPLICATION HELPER XR ABDOMEN AP 1 VIEW IP Routine 04/08/2020 6:05 AM APPLICATION HELPER EGFR Routine 04/08/2020 5:06 AM APPLICATION HELPER CBC WITHOUT DIFFERENTIAL Routine 04/08/2020 5:06 AM APPLICATION HELPER BASIC METABOLIC PANEL Routine 04/08/2020 5:06 AM APPLICATION HELPER EGFR Routine 04/07/2020 10:33 AM APPLICATION HELPER CBC WITHOUT DIFFERENTIAL Routine 04/07/2020 10:33 AM APPLICATION HELPER BASIC METABOLIC PANEL Routine 04/07/2020 10:33 AM APPLICATION HELPER XR ABDOMEN AP 1 VIEW IP Routine 04/07/2020 9:44 AM APPLICATION HELPER XR KUB ED 04/06/2020 7:49 AM APPLICATION HELPER URINALYSIS AND REFLEX TO MICROSCOPIC AND CULTURE STAT 04/06/2020 6:35 AM APPLICATION HELPER XR KUB ED 04/06/2020 3:45 AM APPLICATION HELPER SEPSIS LACTATE WITH REFLEX STAT 04/06/2020 1:[address] ABDOMEN PELVIS W CONTRAST ED 04/06/2020 12:16 AM APPLICATION HELPER LIPASE Add-On 04/05/2020 10:51 PM APPLICATION HELPER EGFR STAT 04/05/2020 10:30 PM APPLICATION HELPER DIFFERENTIAL AUTO STAT 04/05/2020 10: 30 PM APPLICATION HELPER CBC WITH AUTO DIFFERENTIAL STAT 04/05/2020 10:30 PM APPLICATION HELPER COMPREHENSIVE METABOLIC PANEL STAT 04/05/2020 10:30 PM APPLICATION HELPER documented in this encounter Results * eGFR (04/10/2020 5:32 AM APPLICATION HELPER) eGFR 91 mL/min/1.7 3 m2 [facility] (JULI) Comment: Interpretive Data [...] was last reviewed 2020 Blood specimen (specimen) 04/10/2020 5:32 AM APPLICATION HELPER 04/10/2020 5:47 AM APPLICATION HELPER us Korey Randolph MD LAB BLOOD ORDERABLES Fi nal Result [facility] (JULI) 1 [facility] Department of Laboratories [place], [place] [id number] * (ABNORMAL) CBC without differential (04/10/2020 5:32 AM APPLICATION HELPER) WBC 7.2 3.8 - 9.9 K/cumm [facility] (JULI) Hgb 10.9(L) 11.9 - 15.5 g/dL [facility] (JULI) Hct 32.7(L) 35.6 - 45.5 % [facility] (JULI) Plt 162 150 - 400 K/cumm [facility] (JULI) MPV 11.1 9.1 - 12.3 fL [facility] ([place]ULI) RBC 3.49(L) 3.90 - 5.20 M/cumm [facility] (JULI) MCV 93.7 81.3 - 96.4 fL [facility] ([place]) MCH 31.2 27.1 - 33.3 pg [facility] ([facility]ULI) MCHC 33.3 32.3 - 35.7 g/dL [facility] (JULI) RDW CV 13.5 11.1 - 14.9 % [facility] RDW SD 46.0 35.7 - 48.1 fL [facility] NRBC abs 0.00 0.00 - 0.01 K/cumm [facility] Blood specimen (specimen) 04/10/2020 5:32 AM APPLICATION HELPER 04/10/2020 5:47 AM APPLICATION HELPER us Korey Randolph MD LAB BLOOD ORDERABLES nal Result [facility] ([facility]) 1 [facility] Department [place] [address] * (ABNORMAL) Basic metabolic panel (04/10/2020 5:32 AM APPLICATION HELPER) Sodium 143 135 - 145 mmol/L [facility] ([facility]) Potassium, pl 3.2(L) 3.3 - 4.9 mmol/L [facility]) Chloride 113(H) 97 - 110 mmol/L [facility] CO2 21(L) 22 - 32 mmol/L [facility] Anion gap 9 2 - 15 mmol/L [facility] BUN 10 8 - 25 mg/dL [facility] Creatinine 0.51(L) 0.60 - 1.10 mg/dL [facility] Glucose 107 70 - 199 mg/dL [facility] [...] interpretive data was last revised 2017. Calcium 8.4(L) 8.5 - 10.3 mg/dL [facility] ([facility]) Blood specimen (specimen) 04/10/2020 5:32 AM APPLICATION HELPER 04/10/2020 5:47 AM APPLICATION HELPER Korey Randolph MD LAB BLOOD ORDERABLES Fi nal Result [facility] ([facility]) 1 [facility] Department [place] [address] * eGFR (04/09/2020 5:24 AM APPLICATION HELPER) eGFR 90 mL/min/1.7 3 m2 [facility] ([facility]) Comment: Interpretive Data [...] was last reviewed 2020 Blood specimen (specimen) 04/09/2020 5:24 AM APPLICATION HELPER 04/09/2020 6:27 AM APPLICATION HELPER us Korey Randolph MD LAB BLOOD ORDERABLES Fi nal Result [facility] ([facility] 1 [facility] Department [place] [address] * (ABNORMAL) CBC without differential (04/09/2020 5:24 AM APPLICATION HELPER) WBC 8.7 3.8 - 9.9 K/cumm [facility] Hgb 11.5(L) 11.9 - 15.5 g/dL [facility] Hct 35.6 35.6 - 45.5 % [facility] Plt 187 150 - 400 K/cumm [facility]) MPV 11.8 9.1 - 12.3 fL [facility] RBC 3.78(L) 3.90 - 5.20 M/cumm [facility] MCV 94.2 81.3 - 96.4 fL [facility] MCH 30.4 27.1 - 33.3 pg [facility] MCHC 32.3 32.3 - 35.7 g/dL [facility] RDW CV 13.5 11.1 - 14.9 % [facility] RDW SD 46.9 35.7 - 48.1 fL [facility] NRBC abs 0.00 0.00 - 0.01 K/cumm [facility] Blood specimen (specimen) 04/09/2020 5:24 AM APPLICATION HELPER 04/09/2020 6:27 AM APPLICATION HELPER us Korey Randolph MD LAB BLOOD ORDERABLES Fi nal Result [facility] ([facility]) 1 [facility] [place] [address] * (ABNORMAL) Basic metabolic panel (04/09/2020 5:24 AM APPLICATION HELPER) Sodium 147(H) 135 - 145 mmol/L [facility]) Potassium, pl 3.1(L) 3.3 - 4.9 mmol/L [facility] Chloride 116(H) 97 - 110 mmol/L [facility] CO2 19(L) 22 - 32 mmol/L [facility] Anion gap 13 2 - 15 mmol/L [facility] BUN 16 8 - 25 mg/dL [facility] Creatinine 0.54(L) 0.60 - 1.10 mg/dL [facility] Glucose 64(L) 70 - 199 mg/dL [facility] [...] interpretive data was last revised 2017. Calcium 8.6 8.5 - 10.3 mg/dL [facility] Blood specimen (specimen) 04/09/2020 5:24 AM APPLICATION HELPER 04/09/2020 6:27 AM APPLICATION HELPER us Korey Randolph MD LAB BLOOD ORDERABLES Fi nal Result [facility] ([facility]) 1 [facility] [place] [address] * [place] Small Bowel Series (04/08/2020 12:42 PM APPLICATION HELPER) Anatomical Region Laterality Modality Body N/A Radio Fluoroscop y 04/08/2020 1:48 PM APPLICATION HELPER Impressions 04/08/2020 2:00 PM APPLICATION HELPER Dilated small bowel loops with gas and stool in the colon. ??On correlating with recent CT, this pattern is probably due to partial small bowel obstruction although can also be seen with ileus. ??Oral contrast reaches the colon within 1 hour 50 minutes. ?? Electronically signed by: Darius Johnson M.D. Narrative 04/08/2020 2:00 PM APPLICATION HELPER EXAMINATION: FL SMALL BOWEL SERIES ORDERING HEALTHCARE PROVIDER: DIOR HARPER HISTORY: sbo abd problem since may Hysterectomy Bladder tie up Vomiting started last week SBO? Started taking Millers Bran--worked for awhile ?? COMPARISON: Correlation with CT abdomen and pelvis performed 04/05/2020 and with abdomen radiographs performed 04/08/2020 TECHNIQUE: Initial bull gang supervisor image of the abdomen acquired, followed by administration of 180 mL 50% Gastroview oral contrast. ??Serial radiographic images and fluoroscopic images, with 12 images/sequences obtained. FINDINGS: Crown Attacher radiograph demonstrates dilated small bowel loops. ??There is colonic gas and stool. ??There is an endogastric tube projecting over the stomach and cholecystectomy clips. There are dilated small bowel loops. ??Oral contrast material reaches the colon within 1 hour 50 minutes. ??There is incomplete emptying of the stomach. ??The small bowel loops do not demonstrate significant fold thickening thickening or fixed filling defect. ??Grossly normal appearance of the terminal ileum. Fluoroscopy time 0.9 minutes minutes Procedure Note Darius Johnson MD - 04/08/2020 EXAMINATION: FL SMALL BOWEL SERIES ORDERING HEALTHCARE PROVIDER: DIOR HARPER HISTORY: sbo abd problem since may Hysterectomy Bladder tie up Vomiting started last week SBO? Started taking Millers Bran--worked for awhile COMPARISON: Correlation with CT abdomen and pelvis performed 04/05/2020 and with abdomen radiographs performed 04/08/2020 TECHNIQUE: Initial bull gang supervisor image of the abdomen acquired, followed by administration of 180 mL 50% Gastroview oral contrast. Serial radiographic images and fluoroscopic images, with 12 images/sequences obtained. FINDINGS: Crown Attacher radiograph demonstrates dilated small bowel loops. There is colonic gas and stool. There is an endogastric tube projecting over the stomach and cholecystectomy clips. There are dilated small bowel loops. Oral contrast material reaches the colon within 1 hour 50 minutes. There is incomplete emptying of the stomach. The small bowel loops do not demonstrate significant fold thickening thickening or fixed filling defect. Grossly normal appearance of the terminal ileum. Fluoroscopy time 0.9 minutes minutes IMPRESSION: Dilated small bowel loops with gas and stool in the colon. On correlating with recent CT, this pattern is probably due to partial small bowel obstruction although can also be seen with ileus. Oral contrast reaches the colon within 1 hour 50 minutes. Electronically signed by: Darius Johnson M.D. Dior Harper HISTOLOGY AIDE IMG FLUOROSCOPY PROCEDURES Final Result * XR Abdomen Ap 1 Vw (04/08/2020 6:05 AM APPLICATION HELPER) Anatomical Region Laterality Modality Body, Abdomen N/A Computed Radiogr aphy 04/08/2020 6:11 AM APPLICATION HELPER Impressions 04/08/2020 6:14 AM APPLICATION HELPER 1. ??Unchanged mildly dilated loops of small bowel within the mid abdomen with gas extending through the colon, consistent with a partial small bowel obstruction. 2. ??Interval advancement of the nasogastric tube with tip terminating in the gastric body and side-port at the gastroesophageal junction. This can be advanced an additional 4 cm. Electronically signed by: Nilson Lara M.D. Narrative 04/08/2020 6:14 AM APPLICATION HELPER EXAMINATION: XR ABDOMEN AP 1 VIEW ORDERING HEALTHCARE PROVIDER: DIOR HARPER HISTORY: Small bowel obstruction COMPARISON: 04/07/2020 TECHNIQUE: Supine AP radiograph(s) of the abdomen FINDINGS: Nasogastric tube has been advanced with tip terminating in the gastric body. ??Side-port is at the gastroesophageal junction. Mildly dilated loops of small bowel within the mid abdomen appear unchanged. ??Gas is present extending through the colon. ??Surgical clips are present. Procedure Note Nilson Lara MD - 04/08/2020 EXAMINATION: XR ABDOMEN AP 1 VIEW ORDERING HEALTHCARE PROVIDER: DIOR HARPER HISTORY: Small bowel obstruction COMPARISON: 04/07/2020 TECHNIQUE: Supine AP radiograph(s) of the abdomen FINDINGS: Nasogastric tube has been advanced with tip terminating in the gastric body. Side-port is at the gastroesophageal junction. Mildly dilated loops of small bowel within the mid abdomen appear unchanged. Gas is present extending through the colon. Surgical clips are present. IMPRESSION: 1. Unchanged mildly dilated loops of small bowel within the mid abdomen with gas extending through the colon, consistent with a partial small bowel obstruction. 2. Interval advancement of the nasogastric tube with tip terminating in the gastric body and side-port at the gastroesophageal junction. This can be advanced an additional 4 cm. Electronically signed by: Nilson Lara M.D. us Dior Harper HISTOLOGY AIDE IMG XR PROCEDURES Final Result * eGFR (04/08/2020 5:06 AM APPLICATION HELPER) eGFR 89 mL/min/1.7 3 m2 [facility] ([facility]) Comment: Interpretive Data Reference Interval Normal ?>/= 90 mL/min/1.73m2 Mildly decreased* ? 60 - 89 mL/min/1.73m2 Mildly to moderately decreased ?45 - 59 mL/min/1.73m2 Moderately to severely decreased ??30 - 44 mL/min/1.73m2 Severely decreased ?15 - 29 mL/min/1.73m2 Kidney Failure ?< 15 ??mL/min/1.73m2 *Relative to young adult level If -Kyrgyz multiply value by 1.16. Estimated glomerular filtration rate is determined by [...] 70. Current interpretive data was last reviewed 2015. Blood specimen (specimen) 04/08/2020 5:06 AM APPLICATION HELPER 04/08/2020 5:23 AM APPLICATION HELPER us Korey Randolph MD LAB BLOOD ORDERABLES Fi nal Result [facility] ([facility] 1 [facility] [place] [address] * (ABNORMAL) CBC without differential (04/08/2020 5:06 AM APPLICATION HELPER) WBC 9.5 3.8 - 9.9 K/cumm [facility] ([facility]) Hgb 11.3(L) 11.9 - 15.5 g/dL [facility] Hct 34.7(L) 35.6 - 45.5 % [facility] ([facility]) Plt 182 150 - 400 K/cumm [facility]) MPV 11.4 9.1 - 12.3 fL [facility] RBC 3.67(L) 3.90 - 5.20 M/cumm [facility]) MCV 94.6 81.3 - 96.4 fL [facility]) MCH 30.8 27.1 - 33.3 pg [facility]) MCHC 32.6 32.3 - 35.7 g/dL [facility]) RDW CV 13.7 11.1 - 14.9 % [facility] RDW SD 47.9 35.7 - 48.1 fL [facility]) NRBC abs 0.00 0.00 - 0.01 K/cumm [facility]) Blood specimen (specimen) 04/08/2020 5:06 AM APPLICATION HELPER 04/08/2020 5:22 AM APPLICATION HELPER us Korey Randolph MD LAB BLOOD ORDERABLES Fi nal Result Performing Organization Address City/[facility]/ZIP Co de Phone Number [facility] ([facility]) 1 [facility] [place] [address] * (ABNORMAL) Basic metabolic panel (04/08/2020 5:06 AM APPLICATION HELPER) Pathologist [facility] [place] Sodium 146(H) 135 - 145 mmol/L [facility] ([facility]) Potassium, pl 3.0(C) 3.3 - 4.9 mmol/L [facility]) Comment:Critical Result call ed to and read back by Marleny Zuniga [facility], DATE: 2020-04-08 06:23:48 BY: [email or web address] Chloride 116(H) 97 - 110 mmol/L [facility] CO2 22 22 - 32 mmol/L [facility] Anion gap 9 2 - 15 mmol/L [facility] BUN 15 8 - 25 mg/dL [facility]) Creatinine 0.55(L) 0.60 - 1.10 mg/dL [facility] Glucose 83 70 - 199 mg/dL [facility]) [...] interpretive data was last revised 2017. Calcium 8.5 8.5 - 10.3 mg/dL [facility]) Blood specimen (specimen) 04/08/2020 5:06 AM APPLICATION HELPER 04/08/2020 5:23 AM APPLICATION HELPER us Korey Randolph MD LAB BLOOD ORDERABLES Fi nal Result [facility] ([facility]) 1 [facility] Department [place] [address] * eGFR (04/07/2020 10:33 AM APPLICATION HELPER) eGFR 87 mL/min/1.7 3 m2 [facility] ([facility]) Comment: Interpretive Data Reference Interval Normal ?>/= 90 mL/min/1.73m2 Mildly decreased* ? 60 - 89 mL/min/1.73m2 Mildly to moderately decreased ?45 - 59 mL/min/1.73m2 Moderately to severely decreased ??30 - 44 mL/min/1.73m2 Severely decreased ?15 - 29 mL/min/1.73m2 Kidney Failure ?< 15 ??mL/min/1.73m2 *Relative to young adult level If -Kyrgyz multiply value by 1.16. Estimated glomerular filtration rate is determined by [...] 70. Current interpretive data was last reviewed 2015. Blood specimen (specimen) 04/07/2020 10:33 AM APPLICATION HELPER 04/07/2020 10:43 AM APPLICATION HELPER us Korey Randolph MD LAB BLOOD ORDERABLES Fi nal Result [facility] ([facility]) 1 [facility] Department of Laboratories [place], [place] [id number] * (ABNORMAL) CBC without differential (04/07/2020 10:33 AM APPLICATION HELPER) Pathologist [facility] [place] WBC 11.2(H) 3.8 - 9.9 K/cumm [facility]) Hgb 12.4 11.9 - 15.5 g/dL [facility]) Hct 37.6 35.6 - 45.5 % [facility] Plt 197 150 - 400 K/cumm [facility]) MPV 11.2 9.1 - 12.3 fL [facility] RBC 4.02 3.90 - 5.20 M/cumm [facility] MCV 93.5 81.3 - 96.4 fL [facility] MCH 30.8 27.1 - 33.3 pg [facility] MCHC 33.0 32.3 - 35.7 g/dL [facility]) RDW CV 13.8 11.1 - 14.9 % [facility] RDW SD 47.6 35.7 - 48.1 fL [facility] NRBC abs 0.00 0.00 - 0.01 K/cumm [facility] Blood specimen (specimen) 04/07/2020 10:33 AM APPLICATION HELPER 04/07/2020 10:43 AM APPLICATION HELPER Korey Randolph MD LAB BLOOD ORDERABLES Fi nal Result [facility] ([facility]) 1 [facility] Department of Laboratories [place] [id number] * (ABNORMAL) Basic metabolic panel (04/07/2020 10:33 AM APPLICATION HELPER) Sodium 144 135 - 145 mmol/L [facility] ([facility]) Potassium, pl 3.5 3.3 - 4.9 mmol/L [facility] ([facility]) Chloride 110 97 - 110 mmol/L [facility] CO2 26 22 - 32 mmol/L [facility]) Anion gap 8 2 - 15 mmol/L [facility] ([facility]) BUN 17 8 - 25 mg/dL [facility] ([facility]) Creatinine 0.59(L) 0.60 - 1.10 mg/dL [facility] ([facility]) Glucose 118 70 - 199 mg/dL [facility] ([facility]) Comment: Interpretive Data Fasting glucose [...] interpretive data was last revised 2017. Calcium 8.6 8.5 - 10.3 mg/dL [facility] ([facility]) Blood specimen (specimen) 04/07/2020 10:33 AM APPLICATION HELPER 04/07/2020 10:43 AM APPLICATION HELPER us Korey Randolph MD LAB BLOOD ORDERABLES Fi nal Result [facility] ([facility]) 1 [facility] [place] [address] * XR Abdomen Ap 1 Vw (04/07/2020 9:44 AM APPLICATION HELPER) Anatomical Region Laterality Modality Body, Abdomen N/A Computed Radiogr aphy 04/07/2020 10:1 0 AM APPLICATION HELPER Impressions 04/07/2020 10:15 AM APPLICATION HELPER 1. ??Mildly dilated loops of air-filled small bowel suggestive of a partial small bowel obstruction. 2. ??Nasogastric tube tip terminating at the gastroesophageal junction. ??This can be advanced approximately 7 to 9 cm. Findings communicated with the patient's nurse, Earnestine, at 1015 hours, 04/07/2020. Electronically signed by: Nilson Lara M.D. Narrative 04/07/2020 10:15 AM APPLICATION HELPER EXAMINATION: XR ABDOMEN AP 1 VIEW ORDERING HEALTHCARE PROVIDER: DIOR HARPER HISTORY: Small bowel obstruction COMPARISON: 04/06/2020 TECHNIQUE: Supine AP radiograph(s) of the abdomen FINDINGS: Mildly dilated loops of air-filled small bowel are present within the mid abdomen. ??Gas and stool are present extending through the colon. ??Likely nasogastric tube tip terminates at the gastroesophageal junction. Procedure Note Nilson Lara MD - 04/07/2020 EXAMINATION: XR ABDOMEN AP 1 VIEW ORDERING HEALTHCARE PROVIDER: DIOR HARPER HISTORY: Small bowel obstruction COMPARISON: 04/06/2020 TECHNIQUE: Supine AP radiograph(s) of the abdomen FINDINGS: Mildly dilated loops of air-filled small bowel are present within the mid abdomen. Gas and stool are present extending through the colon. Likely nasogastric tube tip terminates at the gastroesophageal junction. IMPRESSION: 1. Mildly dilated loops of air-filled small bowel suggestive of a partial small bowel obstruction. 2. Nasogastric tube tip terminating at the gastroesophageal junction. This can be advanced approximately 7 to 9 cm. Findings communicated with the patient's nurse, Earnestine, at 1015 hours, 04/07/2020. Electronically signed by: Nilson Lara M.D. Dior Harper HISTOLOGY AIDE IMG XR PROCEDURES Final Result * XR Kub (Abd 1 View) (04/06/2020 7:49 AM APPLICATION HELPER) Anatomical Region Laterality Modality Body, Abdomen N/A Computed Radiogr aphy 04/06/2020 7:53 AM APPLICATION HELPER Impressions 04/06/2020 7:56 AM APPLICATION HELPER 1. ??Interval partial retraction of the nasogastric tube with tip terminating in the gastric cardia side-port at the distal esophagus. This can be advanced approximately 9 cm. Electronically signed by: Nilson Lara M.D. Narrative 04/06/2020 7:56 AM APPLICATION HELPER EXAMINATION: XR KUB ORDERING HEALTHCARE PROVIDER: BRIDGET BELL HISTORY: Nasogastric tube placement COMPARISON: 04/06/2020 TECHNIQUE: Supine radiograph(s) of the abdomen and pelvis. FINDINGS: There is been interval partial retraction of a nasogastric tube with tip terminating in the gastric cardia and side-port at the distal esophagus. ??This can be advanced approximately 9 cm. The bowel gas pattern is normal. ??Surgical clips are noted. Procedure Note Nlison Lara MD - 04/06/2020 EXAMINATION: XR KUB ORDERING HEALTHCARE PROVIDER: BRIDGET BELL HISTORY: Nasogastric tube placement COMPARISON: 04/06/2020 TECHNIQUE: Supine radiograph(s) of the abdomen and pelvis. FINDINGS: There is been interval partial retraction of a nasogastric tube with tip terminating in the gastric cardia and side-port at the distal esophagus. This can be advanced approximately 9 cm. The bowel gas pattern is normal. Surgical clips are noted. IMPRESSION: 1. Interval partial retraction of the nasogastric tube with tip terminating in the gastric cardia side-port at the distal esophagus. This can be advanced approximately 9 cm. Electronically signed by: Nilson Lara M.D. us Bridget Bell MD IMG XR PROCEDURES Final Re sult * (ABNORMAL) Urinalysis reflex to microscopic and culture Urine (04/06/2020 6:35 AM APPLICATION HELPER) Color, ur Yellow Yellow [facility] Clarity, ur Turbid(A) Clear [facility] ([facility]) Specific gravity, ur 1.025 1.010 - 1.025 [facility] pH, urine 8.5 [facility] Protein, ur ql Trace Negative [facility]) Glucose, ur ql Negative Negative [facility]) Ketones, ur 3+(A) Negative [facility] ([facility]) Bilirubin, ur Negative Negative [facility]) Blood, ur Negative Negative [facility] Urobilinogen, ur 2.0(A) <2.0 mg/dL [facility]) Nitrite, ur Negative Negative [facility] ([facility]) Leukocyte esterase, ur Negative Negative [facility]) UA reflex comment Reflex conditions for microscopic UA and culture not met. [facility] Urine 04/06/2020 6:35 AM APPLICATION HELPER 04/06/2020 6:46 AM APPLICATION HELPER Narrative [facility] - 04/06/2020 6:49 AM APPLICATION HELPER ?? Urine pH is affected by diet, medications, systemic acid-base disturbances, and renal tubular function. ??pH may affect urinary stone formation. ??For example, urine pH below 6.0 may help reduce the tendency for calcium phosphate stones and pH greater than 6.0 may reduce the tendency for uric acid stone formation. Source: [facility]. Last revised 04-13-2017 Urine pH is affected by diet, medications, systemic acid-base disturbances, and renal tubular function. ??pH may affect urinary stone formation. ??For example, urine pH below 6.0 may help reduce the tendency for calcium phosphate stones and pH greater than 6.0 may reduce the tendency for uric acid stone formation. Source: [facility]. Last revised 04-13-2017 us Bridget Bell MD LAB MICROBIOLOGY - GENERAL ORDERABLES Final Result [facility] ([facility] 1 [facility] [place] [address] * XR Kub (Abd 1 View) (04/06/2020 3:45 AM APPLICATION HELPER) Anatomical Region Laterality Modality Body, Abdomen N/A Computed Radiogr aphy 04/06/2020 3:34 AM APPLICATION HELPER Impressions 04/06/2020 3:59 AM APPLICATION HELPER ??Enteric tube terminates in the stomach. THIS IS AN ELECTRONICALLY VERIFIED FINAL REPORT 04/06/2020 3:56 AM - Electronically signed by Ej Bertrand M.D. AR: CLAUDINE D: ??04/06/2020 3:56 AM T: ??04/06/2020 3:56 AM Report ID: [id number] Reading Location: ??[id number] Narrative 04/06/2020 3:59 AM APPLICATION HELPER [facility] ?Imaging Result Name: MEGHANA LOYA ? Ordering Phys: BRIDGET BELL Age: 80 ?Date of : 1940 ? Accession Number: [id number] Date of Service: 04/06/2020 ??Gender: F EXAM DESCRIPTION: ?? XR KUB REASON FOR STUDY: ?? NGT placementDuration: prior to xr TECHNIQUE: ?? KUB COMPARISON: ??04/05/2019 ??LINES/TUBES: Enteric tube terminates within the stomach. BOWEL: Gas-filled bowel loops. OTHER SOFT TISSUES: ??Unremarkable. BONES: Unremarkable. Procedure Note Ej Bertrand MD - 04/06/2020 [facility] Imaging Result Name: MEGHANA LOYA Ordering Phys: BRIDGET BELL Age: 80 Date of : 1940 Accession Number: [id number] Date of Service: 04/06/2020 Gender: F EXAM DESCRIPTION: XR KUB REASON FOR STUDY: NGT placementDuration: prior to xr TECHNIQUE: KUB COMPARISON: 04/05/2019 LINES/TUBES: Enteric tube terminates within the stomach. BOWEL: Gas-filled bowel loops. OTHER SOFT TISSUES: Unremarkable. BONES: Unremarkable. IMPRESSION: Enteric tube terminates in the stomach. THIS IS AN ELECTRONICALLY VERIFIED FINAL REPORT 04/06/2020 3:56 AM - Electronically signed by Ej Bertrand M.D. AR: CLAUDINE Report ID: [id number] Reading Location: [id number] us Bridget Bell MD IMG XR PROCEDURES Final Re sult * Sepsis Lactate w/ Reflex (04/06/2020 1:13 AM APPLICATION HELPER) Sepsis Lactate 1.4 0.7 - 2.0 mmol/L [facility] ([place] Blood specimen (specimen) 04/06/2020 1:13 AM APPLICATION HELPER 04/06/2020 1:16 AM APPLICATION HELPER us Bridget Bell MD LAB BLOOD ORDERABLES Final Result [facility]) 1 [facility] [place] [address] * CT Abdomen Pelvis W Contrast (04/06/2020 12:16 AM APPLICATION HELPER) Anatomical Region Laterality Modality Body N/A Computed Tomogra phy 04/05/2020 11:5 0 PM APPLICATION HELPER Impressions 04/06/2020 12:50 AM APPLICATION HELPER 1. ??Partial small bowel obstruction with transition point in the right lower quadrant at a focally thickened/inflamed loop of small bowel which is suspicious for inflammatory/infectious etiology. 2. ??Mild intra-abdominal free fluid. 3. ??Small subcentimeter hypodensities within the uncinate process of pancreas, likely reflective of small cystic lesions. ??Recommend follow-up MRI in 12 months after consideration to patient age. At approximately 12:27 am on 04/06/2020, ??initial attempt was made to contact the referring clinician; this case was discussed in detail with acknowledgement via telephone with Dr. Bell at 12:46 a.m.. THIS IS AN ELECTRONICALLY VERIFIED FINAL REPORT 04/06/2020 12:47 AM - Electronically signed by Giovany Cox BG: BG D: ??04/06/2020 12:45 AM T: ??04/06/2020 12:47 AM Report ID: [id number] Reading Location: ??[id number] Narrative 04/06/2020 12:50 AM APPLICATION HELPER [facility] ?Imaging Result Name: EMGHANA LOYA ? Ordering Phys: BRIDGET BELL Age: 80 ?Date of : 1940 ? Accession Number: [id number] Date of Service: 04/06/2020 ??Gender: F EXAM DESCRIPTION: ?? CT ABDOMEN PELVIS W CONTRAST REASON FOR STUDY: ?? 80 year old female with a PMHx of GERD, s/p hysterectomy, s/p cholecystectomy, s/p appendectomy and HLD who presents to the ED with a chief complaint of epigastric and left-sided abdominal pain with nausea and vomiting that began around 7:00AM this morning. 100ML Opti 320 via 20G left armDuration: 1 day TECHNIQUE: ??CT scan of the abdomen and pelvis performed with intravenous and without oral contrast using helical scanning technique with dynamic intravenous contrast injection. Reconstructed coronal and sagittal MPR images reviewed. All images stored on PACS. Automated exposure control was used as a dose optimization technique for this examination. CONTRAST TYPE/DOSE: ?? 100ml of opti 320 injected via ??left arm COMPARISON: ??08/14/2019 ??LOWER CHEST: ??Bibasilar atelectatic change. ??Visualized lower mediastinum is unremarkable. LIVER: ??No identified cystic or solid masses on single phase imaging. ??Minimal intrahepatic ductal dilatation. GALLBLADDER: ??Surgically absent. BILE DUCTS: ??Prominent biliary system, likely related to post cholecystectomy state. SPLEEN: ?? No focal lesions. PANCREAS: ??Small subcentimeter hypodensities within uncinate process of the pancreas, likely reflecting small cystic lesions. ??Recommend follow-up MRI in 12 months. ??Pancreatic divisum. ??No significant calcifications. No adjacent inflammation or peripancreatic fluid collections. Pancreatic duct not dilated. ADRENALS: ??Unremarkable. KIDNEYS/URINARY TRACT: ??0.4 cm hypodensity at the superior pole of the right kidney, incompletely characterized. ??No visualized stones. No hydronephrosis or hydroureter. Symmetric enhancement. ?? Bladder is partially decompressed, limiting evaluation. GI: Evaluation the gastrointestinal tract is limited by lack of distention and bowel prep. ?? Small hiatal hernia. ??Proximal stomach is unremarkable. Appearance of the distal gastric wall is likely related to lack of distention. There is mild fluid-filled distention of multiple small bowel loops measuring up to 3 cm with transition point at a thickened loop of small bowel in the right lower quadrant (axial image 99-105). ??There is fecal like material within the distal small bowel, suggesting a more chronic process. ??Scattered diverticular disease without evidence of acute diverticulitis. ??No abnormal colonic wall thickening identified by CT. ??Mild colonic stool burden. PERITONEUM: ??Small amount of intra-free fluid measuring simple density in layering within right lower abdomen and pelvis. RETROPERITONEUM: ??No mass or adenopathy. REPRODUCTIVE: ??No significant abnormality. VASCULATURE: ??No abdominal aortic aneurysm. MUSCULOSKELETAL: ??No significant abnormality. OTHER: ??No additional significant abnormality. Procedure Note Giovany Cox MD - 04/06/2020 [facility] Imaging Result Name: MEGHANA LOYA Ordering Phys: BRIDGET BELL Age: 80 Date of : 1940 Accession Number: [id number] Date of Service: 04/06/2020 Gender: F EXAM DESCRIPTION: CT ABDOMEN PELVIS W CONTRAST REASON FOR STUDY: 80 year old female with a PMHx of GERD, s/physterectomy, s/p cholecystectomy, s/p appendectomy and HLD who presents to the ED witha chief complaint of epigastric and left-sided abdominal pain with nauseaand vomiting that began around 7:00AM this morning. 100ML Opti 320 via 20Gleft armDuration: 1 day TECHNIQUE: CT scan of the abdomen and pelvis performed with intravenousand without oral contrast using helical scanning technique with dynamic intravenous contrast injection. Reconstructed coronal and sagittal MPRimages reviewed. All images stored on PACS. Automated exposure control was used as a dose optimization technique forthis examination. CONTRAST TYPE/DOSE: 100ml of opti 320 injected via left arm COMPARISON: 08/14/2019 LOWER CHEST: Bibasilar atelectatic change. Visualized lower mediastinum is unremarkable. LIVER: No identified cystic or solid masses on single phase imaging.Minimal intrahepatic ductal dilatation. GALLBLADDER: Surgically absent. BILE DUCTS: Prominent biliary system, likely related to postcholecystectomy state. SPLEEN: No focal lesions. PANCREAS: Small subcentimeter hypodensities within uncinate process ofthe pancreas, likely reflecting small cystic lesions. Recommend follow-up MRIin 12 months. Pancreatic divisum. No significant calcifications. Noadjacent inflammation or peripancreatic fluid collections. Pancreatic duct notdilated. ADRENALS: Unremarkable. KIDNEYS/URINARY TRACT: 0.4 cm hypodensity at the superior pole of theright kidney, incompletely characterized. No visualized stones. Nohydronephrosis or hydroureter. Symmetric enhancement. Bladder is partiallydecompressed, limiting evaluation. GI: Evaluation the gastrointestinal tract is limited by lack of distentionand bowel prep. Small hiatal hernia. Proximal stomach is unremarkable. Appearance of the distal gastric wall is likely related to lack ofdistention. There is mild fluid-filled distention of multiple small bowel loopsmeasuring up to 3 cm with transition point at a thickened loop of small bowel inthe right lower quadrant (axial image 99-105). There is fecal like material within the distal small bowel, suggesting a more chronic process.Scattered diverticular disease without evidence of acute diverticulitis. Noabnormal colonic wall thickening identified by CT. Mild colonic stool burden. PERITONEUM: Small amount of intra-free fluid measuring simple densityin layering within right lower abdomen and pelvis. RETROPERITONEUM: No mass or adenopathy. REPRODUCTIVE: No significant abnormality. VASCULATURE: No abdominal aortic aneurysm. MUSCULOSKELETAL: No significant abnormality. OTHER: No additional significant abnormality. IMPRESSION: 1. Partial small bowel obstruction with transition point in the rightlower quadrant at a focally thickened/inflamed loop of small bowel which is suspicious for inflammatory/infectious etiology. 2. Mild intra-abdominal free fluid. 3. Small subcentimeter hypodensities within the uncinate process ofpancreas, likely reflective of small cystic lesions. Recommend follow-up MRI in12 months after consideration to patient age. At approximately 12:27 am on 04/06/2020, initial attempt was made tocontact the referring clinician; this case was discussed in detail with acknowledgement via telephone with Dr. Bell at 12:46 a.m.. THIS IS AN ELECTRONICALLY VERIFIED FINAL REPORT 04/06/2020 12:47 AM - Electronically signed by Giovany Cox BG: BG Report ID: [id number] Reading Location: [id number] Bridget Bell MD IMG CT PROCEDURES Final Re sult * Lipase (04/05/2020 10:51 PM APPLICATION HELPER) Pathologist [facility], [place] Lipase 26 10 - 99 Units/L [facility] (JULI) Blood specimen (specimen) 04/05/2020 10:51 PM APPLICATION HELPER 04/05/2020 10:51 PM APPLICATION HELPER Bridget Bell MD LAB BLOOD ORDERABLES Final Result CARYN TSANG (JULI) 1 [facility] Department [place] [address] * eGFR (04/05/2020 10:30 PM APPLICATION HELPER) Pathologist [facility] [place] eGFR 84 mL/min/1.7 3 m2 [facility] (JULI) Comment: Interpretive Data Reference Interval Normal ?>/= 90 mL/min/1.73m2 Mildly decreased* ? 60 - 89 mL/min/1.73m2 Mildly to moderately decreased ?45 - 59 mL/min/1.73m2 Moderately to severely decreased ??30 - 44 mL/min/1.73m2 Severely decreased ?15 - 29 mL/min/1.73m2 Kidney Failure ?< 15 ??mL/min/1.73m2 *Relative to young adult level If -Kyrgyz multiply value by 1.16. Estimated glomerular filtration rate is determined by [...] 70. Current interpretive data was last reviewed 2015. Blood specimen (specimen) 04/05/2020 10:30 PM APPLICATION HELPER 04/05/2020 10:38 PM APPLICATION HELPER us Bridget Bell MD LAB BLOOD ORDERABLES Final Result [facility] (WALKER) 1 [facility] Department [place] [address] * (ABNORMAL) Differential, auto (04/05/2020 10:30 PM APPLICATION HELPER) Neutrophil abs 16.3(H) 1.7 - 6.5 K/cumm [facility] (JULI) Imm gran abs 0.1 0.0 - 0.1 K/cumm [facility] (JULI) Lymphocyte abs 1.0 0.8 - 3.3 K/cumm [facility] (JULI) Monocyte abs 1.1(H) 0.2 - 0.8 K/cumm [facility] (JULI) Eosinophil abs 0.1 0.0 - 0.5 K/cumm [facility] (JULI) Basophil abs 0.1 0.0 - 0.1 K/cumm [facility] (JULI) Neutrophil pct 87.6 % [facility] (JULI) Comment: Interpretive Data Percent cell count reference ranges are not reported, since discordance with absolute values may lead to misinterpretation of CBC data. Current Interpretive Data was last revised on 2017. Imm gran pct 0.5 % [facility] (JULI) Comment: Interpretive Data Percent cell count reference ranges are not reported, since discordance with absolute values may lead to misinterpretation of CBC data. Current Interpretive Data was last revised on 2017. Lymphocyte pct 5.6 % [facility] (JULI) Comment: Interpretive Data Percent cell count reference ranges are not reported, since discordance with absolute values may lead to misinterpretation of CBC data. Current Interpretive Data was last revised on 2017. Monocyte pct 5.7 % [facility] (JULI) Comment: Interpretive Data Percent cell count reference ranges are not reported, since discordance with absolute values may lead to misinterpretation of CBC data. Current Interpretive Data was last revised on 2017. Eosinophil pct 0.3 % [facility] (JULI) Comment: Interpretive Data Percent cell count reference ranges are not reported, since discordance with absolute values may lead to misinterpretation of CBC data. Current Interpretive Data was last revised on 2017. Basophil pct 0.3 % [facility] (JULI) Comment: Interpretive Data Percent cell count reference ranges are not reported, since discordance with absolute values may lead to misinterpretation of CBC data. Current Interpretive Data was last revised on 2017. Blood specimen (specimen) 04/05/2020 10:30 PM APPLICATION HELPER 04/05/2020 10:38 PM APPLICATION HELPER us Bridget Bell MD LAB BLOOD ORDERABLES Final Result [facility] (JULI) [address] Department [place] [address] * (ABNORMAL) Comprehensive metabolic panel (04/05/2020 10:30 PM APPLICATION HELPER) Sodium 137 135 - 145 mmol/L [facility] (JULI) Potassium, pl 4.0 3.3 - 4.9 mmol/L [facility] (JULI) Chloride 100 97 - 110 mmol/L [facility] (JULI) CO2 26 22 - 32 mmol/L [facility] (JULI) Anion gap 11 2 - 15 mmol/L [facility] (JULI) BUN 13 8 - 25 mg/dL [facility] (JULI) Creatinine 0.66 0.60 - 1.10 mg/dL [facility] (JULI) Glucose 140 70 - 199 mg/dL [facility] (JULI) [...] interpretive data was last revised 2017. Calcium 10.6(H) 8.5 - 10.3 mg/dL [facility] (JULI) Bilirubin, total 0.4 0.1 - 1.2 mg/dL [facility] (JULI) Protein, pl 6.8 6.5 - 8.5 g/dL [facility] (JULI) Albumin 4.0 3.5 - 5.0 g/dL [facility] (JULI) Alk phos 97 40 - 130 Units/L [facility] (JULI) ALT 29 7 - 45 Units/L [facility] (JULI) AST 20 10 - 45 Units/L [facility] (JULI) Blood specimen (specimen) 04/05/2020 10:30 PM APPLICATION HELPER 04/05/2020 10:38 PM APPLICATION HELPER us Bridget Bell MD LAB BLOOD ORDERABLES Final Result [facility] (JULI) [address] [facility] [place] [address] * (ABNORMAL) CBC with auto differential (04/05/2020 10:30 PM APPLICATION HELPER) WBC 18.6(H) 3.8 - 9.9 K/cumm [facility] (JULI) Hgb 14.9 11.9 - 15.5 g/dL [facility] (JULI) Hct 44.8 35.6 - 45.5 % [facility] (JULI) Plt 241 150 - 400 K/cumm [facility] (JULI) MPV 11.3 9.1 - 12.3 fL [facility] (JULI) RBC 4.89 3.90 - 5.20 M/cumm [facility] (JULI) MCV 91.6 81.3 - 96.4 fL [facility] (JULI) MCH 30.5 27.1 - 33.3 pg [facility] (JULI) MCHC 33.3 32.3 - 35.7 g/dL [facility] (JULI) RDW CV 13.4 11.1 - 14.9 % [facility] (JULI) RDW SD 45.4 35.7 - 48.1 fL [facility] (JULI) NRBC abs 0.00 0.00 - 0.01 K/cumm [facility] (JULI) Blood specimen (specimen) 04/05/2020 10:30 PM APPLICATION HELPER 04/05/2020 10:38 PM APPLICATION HELPER us Bridget Bell MD LAB BLOOD ORDERABLES Final Result CARY[facility] TSANG (JULI) [address] [facility] [place] [address] documented in this encounter Visit Diagnoses Diagnosis Small bowel obstruction, partial (CMS/HCC) (HCC)- Primary Unspecified intestinal obstruction Small bowel obstruction, partial (CMS/HCC) (HCC) Unspecified intestinal obstruction documented in this encounter Admitting Diagnoses Diagnosis Small bowel obstruction, partial (CMS/HCC) (HCC) Unspecified intestinal obstruction documented in this encounter Administered Medications Inactive Administered Medications - up to 3 most recent administrations Medication Order MAR Action Action Date Dose Rate Site al & mag hydroxide simethicone-lidocaine oral suspension mixture 40 mL, oral, Once, On Mon04/06/20 at 0252, For 1 dose Given 04/06/2020 2:59 AM APPLICATION HELPER 40 mL diatrizoate meglumine-diatrizoate sodium (GASTROGRAFIN/MD-GASTROV IEW) 66-10 % solution 30 mL 30 mL, nasogastric tube, Once in imaging, contrast, Starting on Mon04/08/20 at 1019, For 3 doses Given 04/08/2020 10:40 AM APPLICATION HELPER 30 mL diatrizoate meglumine-diatrizoate sodium (GASTROGRAFIN/MD-GASTROV IEW) 66-10 % solution 30 mL 30 mL, nasogastric tube, Once in imaging, contrast, Starting on Mon04/08/20 at 1020, For 1 dose Given 04/08/2020 10:39 AM APPLICATION HELPER 30 mL diatrizoate meglumine-diatrizoate sodium (GASTROGRAFIN/MD-GASTROV IEW) 66-10 % solution 30 mL 30 mL, nasogastric tube, Once in imaging, contrast, Starting on Mon04/08/20 at 1020, For 1 dose Given 04/08/2020 10:39 AM APPLICATION HELPER 30 mL enoxaparin (LOVENOX) syringe 40 mg 40 mg, subcutaneous, Daily (for enoxaparin), First dose on Mon04/06/20 at 2100, Indications: Deep Vein Thrombosis PreventionIndications:De ep Vein Thrombosis Prevention Given 04/09/2020 9:00 PM APPLICATION HELPER 40 mg Right Lower Abdomen Given 04/08/2020 9:27 PM APPLICATION HELPER 40 mg Le ft Lower Abdomen Given 04/07/2020 10:21 PM APPLICATION HELPER 40 mg R ight Lower Abdomen famotidine (PEPCID) injection 20 mg 20 mg, intravenous, Administer over 2 Minutes, Daily, First dose on Mon04/07/20 at 1645 Given 04/10/2020 9:17 AM APPLICATION HELPER 20 m g Given 04/09/2020 9:21 AM APPLICATION HELPER 20 mg Given 04/08/2020 8:21 AM APPLICATION HELPER 20 mg fentaNYL (SUBLIMAZE) preservative free injection 50 mcg 50 mcg, intravenous, Once, On Mon04/05/20 at 2246, For 1 dose Given 04/05/2020 11:26 PM APPLICATION HELPER 50 mcg fentaNYL (SUBLIMAZE) preservative free injection 50 mcg 50 mcg, intravenous, Once, On Mon04/06/20 at 0101, For 1 dose Given 04/06/2020 1:10 AM APPLICATION HELPER 50 mcg fentaNYL (SUBLIMAZE) preservative free injection 50 mcg 50 mcg, intravenous, Every 2 hours PRN, 1st line for pain, Starting on Mon04/06/20 at 1751 Given 04/09/2020 9:07 PM APPLICATION HELPER 50 mcg Given 04/09/2020 5:25 PM APPLICATION HELPER 50 mcg Given 04/09/2020 10:56 AM APPLICATION HELPER 50 mcg fentaNYL (SUBLIMAZE) preservative free injection 50 mcg 50 mcg, intravenous, Once, On Mon04/06/20 at 0607, For 1 dose Given 04/06/2020 6:58 AM APPLICATION HELPER 50 mcg fentaNYL (SUBLIMAZE) preservative free injection 50 mcg 50 mcg, intravenous, Once, On Mon04/06/20 at 1627, For 1 dose Given 04/06/2020 4:33 PM APPLICATION HELPER 50 mcg ioversoL (OPTIRAY 320) intravenous syringe 100 mL 100 mL, intravenous, Once in imaging, contrast, Starting on Mon04/05/20 at 2345, For 1 dose Given 04/05/2020 11:52 PM APPLICATION HELPER 100 mL LORazepam (ATIVAN) injection 0.5 mg 0.5 mg, intravenous, Once, On Mon04/05/20 at 2337, For 1 dose, For IV administration, dilute with equal volume of 0.9% sodium chloride. Do not exceed a rate of 2 mg/minute Given 04/05/2020 11:48 PM APPLICATION HELPER 0.5 mg ondansetron (ZOFRAN) injection 4 mg 4 mg, intravenous, Administer over 2 Minutes, Every 6 hours PRN, nausea, Starting on Mon04/05/20 at 2244 Given 04/08/2020 9:28 PM APPLICATION HELPER 4 mg Given 04/08/2020 2:54 AM APPLICATION HELPER 4 mg Given 04/07/2020 10:24 PM APPLICATION HELPER 4 mg pantoprazole (PROTONIX) injection 40 mg 40 mg, intravenous, Administer over 2 Minutes, Once, On Mon04/06/20 at 0916, For 1 dose, For IV Push administration for adults- 40 mg vial: add 10 mL of sodium chloride 0.9% to achieve a final concentration of 4 mg/mL, Indications: heartburnIndications:heartburn Given 04/06/2020 9:20 AM APPLICATION HELPER 40 mg phenol (CHLORASEPTIC) 1.4 % oral spray 2 spray 2 spray, mouth/throat, Every 2 hours PRN, sore throat, Starting on Mon04/07/20 at 1612 piperacillin-tazobactam (ZOSYN) 3.375 g in sodium chloride 0.9% 50 mL IVPB 3.375 g, intravenous, at 130 mL/hr, Administer over 30 Minutes, Every 6 hours scheduled, First dose on Mon04/06/20 at 1400, Indications: Abdominal/Pelvic InfectionIndications:Abdominal/Pel vijay Infection New Bag 04/10/2020 12:10 PM APPLICATION HELPER 3.375 g 130 mL/hr New Bag 04/10/2020 6:10 AM APPLICATION HELPER 3.375 g 130 mL/hr New Bag 04/09/2020 11:42 PM APPLICATION HELPER 3.375 g 130 mL/hr potassium chloride 40 mEq in sodium chloride 0.9% 500 mL IVPB 40 mEq, intravenous, at 130 mL/hr, Administer over 4 Hours, Once, On Mon04/08/20 at 1000, For 1 dose, Indications: hypokalemiaIndications:hypokale cristel New 04/08/2020 1:34 PM APPLICATION HELPER 40 mEq 130 mL/hr potassium chloride 40 mEq in sodium chloride 0.9% 500 mL IVPB 40 mEq, intravenous, at 130 mL/hr, Administer over 4 Hours, Once, On Mon04/09/20 at 0900, For 1 dose, X 1 dose per pharmacy electrolyte replacement protocol for K+=3.1 on 04/09/2020, Indications: hypokalemiaIndications:hypokale cristel New Bag 04/09/2020 9:21 AM APPLICATION HELPER 40 mEq 130 mL/hr potassium chloride 40 mEq in sodium chloride 0.9% 500 mL IVPB 40 mEq, intravenous, at 130 mL/hr, Administer over 4 Hours, Once, On Mon04/10/20 at 0800, For 1 dose, X 1 dose per pharmacy electrolyte replacement protocol for K+=3.2 on 04/10/2020, Indications: hypokalemiaIndications:hypokale cristel New Bag 04/10/2020 9:27 AM APPLICATION HELPER 40 mEq 130 mL/hr sodium chloride 0.9% bolus 1,000 mL 1,000 mL, intravenous, at 1,000 mL/hr, Administer over 1 Hours, Once, On Mon04/05/20 at 2246, For 1 dose New Bag 04/05/2020 10:55 PM APPLICATION HELPER 1,000 mL 1000 mL/hr sodium chloride 0.9% flush 0.5-20 mL 0.5-20 mL, intra-catheter, Every 8 hours, First dose on Mon04/06/20 at 2200, Flush volume based on line type and size. sodium chloride 0.9% flush 0.5-20 mL 0.5-20 mL, intra-catheter, As needed, line care, Starting on Mon04/06/20 at 2117, Flush volume based on line type and size. Flush before and after each use. sodium chloride 0.9% infusion 125 mL/hr, intravenous, Continuous, Starting on Mon04/06/20 at 1830 New Bag 04/09/2020 11:42 PM APPLICATION HELPER 125 mL/hr 125 mL/hr New Bag 04/09/2020 4:04 PM APPLICATION HELPER 125 mL/hr 125 mL/hr New Bag 04/07/2020 11:57 PM APPLICATION HELPER 125 mL/hr 125 mL/hr documented in this encounter Discontinued Medications Medication Sig Discontinue Reason Start Date End Da te aspirin 81 mg tablet Take 81 mg by mouth daily. Therapy completed 04/06/2020 montelukast (SINGULAIR) 10 mg tablet Take 10 mg by mouth nightly Therapy completed 04/06/2020 LORazepam (ATIVAN) 0.5 mg tablet Take 1-2 tablets (0.5-1 mg total) by mouth as directed Take 30 minutes prior to procedure. Stop Taking at Discharge 12/19/2019 04/10/2020 documented as of this encounter Historical Medications * This list may reflect changes made after this encounter. NON FORMULARY, FOR INPATIENT USE, Take 10 mg by mouth daily Prevagen added in this encounter Active and Recently Administered Medications Times are shown in APPLICATION HELPER. Scheduled Medication Order 04/08/2020 04/09/2020 04/10/2020 enoxaparin (LOVENOX) syringe 40 mg 40 mg, subcutaneous, Daily (for enoxaparin), First dose on Mon04/06/20 at 2100, Indications: Deep Vein Thrombosis Prevention 2126 (Given - Provider: Janine Brooks, RN) 2100 (Given - Provider: Lizzeth Yancey, JESSICA) famotidine (PEPCID) injection 20 mg 20 mg, intravenous, Administer over 2 Minutes, Daily, First dose on Mon04/07/20 at 1645 0821 (Given - Provider: Evelyn Cochran, JESSICA) 0921 (Given - Provider: Monica Rob, JESSICA) 0917 (Given - Provider: Monica Rob, JESSICA) piperacillin-tazobacta m (ZOSYN) 3.375 g in sodium chloride 0.9% 50 mL IVPB 3.375 g, intravenous, at 130 mL/hr, Administer over 30 Minutes, Every 6 hours scheduled, First dose on Mon04/06/20 at 1400, Indications: Abdominal/Pelvic Infection 0544 (New Bag - Provider: [place] Ho RN)1255 (New Bag - Provider: Evelyn Cochran, JESSICA)1731 (New Bag - Provider: Evelyn Cochran, JESSICA) 0108 (New Bag - Provider: Janine Brooks, JESSICA)0523 (New Bag - Provider: Janine Brooks, RN)1309 (New Bag - Provider: Monica Rob, JESSICA)1720 (New Bag - Provider: Monica Rob, JESSICA)2342 (New Bag - Provider: Lizzeth Yancey, JESSICA) 0610 (New Bag - Provider: Lizzeth Yancey, JESSICA)1210 (New Bag - Provider: Monica Rob, JESSICA) potassium chloride 40 mEq in sodium chloride 0.9% 500 mL IVPB (COMPLETED) 40 mEq, intravenous, at 130 mL/hr, Administer over 4 Hours, Once, On Mon04/08/20 at 1000, For 1 dose, Indications: hypokalemia 1334 (New Bag - Provider: Evelyn Cochran RN) potassium chloride 40 mEq in sodium chloride 0.9% 500 mL IVPB (COMPLETED) 40 mEq, intravenous, at 130 mL/hr, Administer over 4 Hours, Once, On [place] 04/09/20 at 0900, For 1 dose, X 1 dose per pharmacy electrolyte replacement protocol for K+=3.1 on 04/09/2020, Indications: hypokalemia 0921 (New Bag - Provider: Monica Rob, JESSICA) potassium chloride 40 mEq in sodium chloride 0.9% 500 mL IVPB (COMPLETED) 40 mEq, intravenous, at 130 mL/hr, Administer over 4 Hours, Once, On Mon04/10/20 at 0800, For 1 dose, X 1 dose per pharmacy electrolyte replacement protocol for K+=3.2 on 04/10/2020, Indications: hypokalemia 0927 (New Bag - Provider: Monica Rob RN) sodium chloride 0.9% flush 0.5-20 mL 0.5-20 mL, intra-catheter, Every 8 hours, First dose on Mon04/06/20 at 2200, Flush volume based on line type and size. 0537 (Not Given - Provider: Indiana Ho RN - Reason: Order parameters not met)1421 (Not Given - Provider: Evelyn Cochran RN - Reason: IV Infusing)2129 (Not Given - Provider: Janine Brooks RN - Reason: IV Infusing) 0514 (Not Given - Provider: Janine Brooks RN - Reason: IV Infusing)1402 (Not Given - Provider: Monica Rob RN - Reason: IV Infusing)2101 (Not Given - Provider: Lizzeth Yancey RN - Reason: IV Infusing) 0610 (Not Given - Provider: Lizzeth Yancey RN - Reason: IV Infusing)1417 (Not Given - Provider: Monica Rob RN - Reason: IV Infusing) Continuous Medication Order 04/08/2020 04/09/2020 04/10/2020 sodium chloride 0.9% infusion 125 mL/hr, intravenous, Continuous, Starting on Mon04/06/20 at 1830 1604 (New Bag - Provider: Patti Villegas RN)2342 (New Bag - Provider: Lizzeth Yancey, JESSICA) PRN Medication Order 04/08/2020 04/09/2020 04/10/2020 diatrizoate meglumine-diatrizoate sodium (GASTROGRAFIN/MD-GASTROVIE W) 66-10 % solution 30 mL 30 mL, nasogastric tube, Once in imaging, contrast, Starting on Mon04/08/20 at 1019, For 3 doses 1040 (Given - Provider: Dianna Alcantar, RT - Comment: ) diatrizoate meglumine-diatrizoate sodium (GASTROGRAFIN/MD-GASTROVIE W) 66-10 % solution 30 mL (COMPLETED) 30 mL, nasogastric tube, Once in imaging, contrast, Starting on Mon04/08/20 at 1020, For 1 dose 1039 (Given - Provider: Dianna Alcantar, RT - Comment: ) diatrizoate meglumine-diatrizoate sodium (GASTROGRAFIN/MD-GASTROVIE W) 66-10 % solution 30 mL (COMPLETED) 30 mL, nasogastric tube, Once in imaging, contrast, Starting on Mon04/08/20 at 1020, For 1 dose 1039 (Given - Provider: Dianna Alcantar, RT - Comment: ) fentaNYL (SUBLIMAZE) preservative free injection 50 mcg 50 mcg, intravenous, Every 2 hours PRN, 1st line for pain, Starting on Mon04/06/20 at 1751 0254 (Given - Provider: [place] Ho RN)0820 (Given - Provider: Evelyn Cochran, RN)1255 (Given - Provider: Evelyn Cochran, RN)1732 (Given - Provider: Evelyn Cochran, RN)2127 (Given - Provider: Janine Brooks, JESSICA) 0523 (Given - Provider: Janine Brooks, JESSICA)1056 (Given - Provider: Monica Rob, RN)1725 (Given - Provider: Monica Rob, RN)210 (Given - Provider: Lizzeth Yancey, JESSICA) ondansetron (ZOFRAN) injection 4 mg 4 mg, intravenous, Administer over 2 Minutes, Every 6 hours PRN, nausea, Starting on 04/05/20 at 2244 0254 (Given - Provider: [place] Ho, RN)2128 (Given - Provider: Janine Brooks, JESSICA) phenol (CHLORASEPTIC) 1.4 % oral spray 2 spray 2 spray, mouth/throat, Every 2 hours PRN, sore throat, Starting on 04/07/20 at 1612 sodium chloride 0.9% flush 0.5-20 mL 0.5-20 mL, intra-catheter, As needed, line care, Starting on 04/06/20 at 2117, Flush volume based on line type and size. Flush before and after each use. documented in this encounter Orders Medications Ordered That Jeferson ht Not Have Been Administered Count Last Ordered Date First Ordered Date phenol (CHLORASEPTIC) 1.4 % oral spray 2 spray 1 04/07/2020 sodium chloride 0.9% flush 0.5-20 mL 2 07/2020 Nursing Count Last Ordered Date First Orde red Date NASOGRASTRIC TUBE DISCONTINUE 1 04/09/2020 TUBE OR DRAIN CARE 1 04/06/2020 IV Count Last Ordered Date First Orde red Date INSERT PERIPHERAL IV 1 04/05/2020 ADT Patient Update Count Last Ordered Date Firs t Ordered Date ED IP DECISION TO ADMIT 1 04/06/2020 documented in this encounter Care Teams Supervisor Capacitor Processing Relationship Specialty Start Date End Date Korey Randolph MD PCP - General Internal Medicine 05/23/17 documented as of this encounter
--- OUTSIDE RECORDS SUMMARY | 2024-04-07 05:38 | XMS_ITS | Encounter Summary ---
Author Organization Formerly [facility] Address [address] [place] [address] Care Team Providers Care Veterans Service Officer Name Role Phone Korey Randolph MD Primary Care Provider Encounter Details Date Type Department Care Team (Late st Contact Info) Description 08/19/2019 8:30 AM CDT Anesthesia Event [facility] [address] [place] [address] [place] [id number] [address] Misael Smiley MD [address] [place] [id number] Anesthesia Record Procedure Summary Procedure Name Responsible Anesthesiologist Anesthesia Start Time Anesthesia Stop Time ESOPHAGOGASTRODUODENOSCOPY Casey Charles i, MD 08/19/19 0830 08/19/19 0841 Events Date Time Event Comment 08/19/2019 0816 0828 In Room 0830 An Start 0830 An Start Data 0830 Start Supplemental O2 0830 Patient Positioned Laterally 0830 An Induction The patient was reevaluated immediately before moderate or deep sedation use and before anesthesia induction. 0831 Anesthesia Ready 0841 an stop data 0841 An Stop 0841 Handoff to RN I completed my handoff [...] Patient disposition at the time of handoff: No value filed. 0841 Handoff to RN I completed my handoff [...] Patient disposition at the time of handoff: No value filed. 0843 Out of Room Meds Name Total lidocaine (cardiac) syringe 2 % 40 mg propofol 100 mg sodium chloride 0.9% infusion 0 mL * Agents Name O2 * Blood No blood administrations on file. Lines, Drains, and Airways Type Details Placement Removal Peripheral IV Placement Date: 08/01 11/20; Placement Time: 822; Catheter Size: 20 G; Orientation: Right; Location: Wrist; Site Prep: Chlorhexidine; Technique: Anatomical landmarks; Inserted by: peter maddox rn; Insertion Attempts: 1; Patient Tolerance: Tolerated well; Removal Date: 08/19/19; Removal Time: 92408/19/19 08 by Yashira Maddox RN 08/19/19 09 by Yashira Maddox, RN documented in this encounter Social History Tobacco Use Types Packs/Day Years Used Date Smoking Tobacco: Never Smokeless Tobacco: Never PHQ-2 Answer Date Recorded PHQ-2 Score 0 11/21/2018 Comments No Sex and Gender Information Value Date Recorded Sex Assigned at Not on file 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 Gender Identity Female 08/18/2019 3:36 PM CDT Sexual Orientation Straight 08/18/2019 3: 35 PM CDT documented as of this encounter OR Notes * Anesthesia Postprocedure Evaluation - Juan Carlos Charles MD - 08/19/2019 9:10 AM CDT Patient: Meghana Loya Procedure Summary Date: 08/19/19 Room / Location: [facility] ENDOSCOPY ROOM 2 / [facility]COPY Anesthesia Start: 829 Anesthesia Stop: 840 Procedure: ESOPHAGOGASTRODUODENOSCOPY (N/A ) Diagnosis: Stricture and stenosis of esophagus Gastroesophageal reflux disease, esophagitis presence not specified Abdominal pain, epigastric (Stricture and stenosis of esophagus [K22.2]) (Gastroesophageal reflux disease, esophagitis presence not specified [K21.9]) (Abdominal pain, epigastric [R10.13]) Provider: Dennis Ross MD Responsible Provider: Juan Carlos Charles MD Anesthesia Type: general/TIVA ASA Status: 2 Anesthesia Type: general/TIVA Last vitals BP 134/65 Pulse 65 Temp 36.8 ??C (98.2 ??F) (Temporal) Resp 16 SpO2 97% Anesthesia Post Evaluation Patient location during evaluation: PACU Patient participation: complete - patient participated Level of consciousness: fully awake Pain management: satisfactory to patient Airway patency: adequate Anesthetic complications: no Cardiovascular status: acceptable Respiratory status: acceptable Hydration status: acceptable Pt is: normothermic Nausea/Vomiting status: none * Anesthesia Preprocedure Evaluation - Juan Carlos Charles MD - 08/19/2019 7:12 AM CDT Images from the original note were not included. Anesthesia Evaluation Meghana Loya is a 79 y.o. female Procedure(s): ESOPHAGOGASTRODUODENOSCOPY Pre-Op Diagnosis Codes: * Stricture and stenosis of esophagus [K22.2] * Gastroesophageal reflux disease, esophagitis presence not specified [K21.9] * Abdominal pain, epigastric [R10.13] HISTORY Past Medical History Information obtained from: patient and chart. Cardiovascular + Hyperlipidemia Gastrointestinal + GERD - on daily therapy. Musculoskeletal/Pain + Osteoarthritis Functional Capacity Functional capacity: >10 METs Patient Active Problem List Diagnosis ??? Gastroesophageal reflux disease without esophagitis ??? Mixed hyperlipidemia ??? Esophageal stricture ??? Macular degeneration, dry ??? Vitamin D deficiency ??? Spondylosis of lumbar region without myelopathy or radiculopathy ??? Intermittent epigastric abdominal pain ??? LLQ pain ??? Stricture and stenosis of esophagus ??? Gastroesophageal reflux disease ??? Abdominal pain, epigastric History reviewed. No pertinent past medical history. Past Surgical History: Procedure Laterality Date ??? COLONOSCOPY 01/17/2014 OB History No obstetric history on file. No Known Allergies Taking? Last Dose Start Date End Date Provider aspirin 81 mg tablet Past Week -- -- Historical Provider, atorvastatin (LIPITOR) 10 mg tablet 08/14/2019 12/20/18 -- Korey Randolph MD TAKE 1 TABLET BY MOUTH EVERY DAY cholecalciferol (VITAMIN D-3) 1,000 unit capsule 08/15/2019 -- -- Historical Provider, cyanocobalamin, vitamin B-12, (CYANOCOBALAMIN,VIT B-12,,BULK,) powder 08/15/2019 -- -- Historical Provider, fluticasone propionate (FLONASE) 50 mcg/actuation nasal spray 08/15/2019 01/24/19 01/24/20 AALIYAH Wiley Administer 2 sprays into each nostril daily montelukast (SINGULAIR) 10 mg tablet 08/14/2019 07/24/19 -- Historical Provider, multivitamin,tx-minerals (VITAMINS AND MINERALS) tablet 08/15/2019 -- -- Historical Provider, omega 7-mpm-nwg-fish oil (FISH OIL) 60-90-500 mg capsule Past Week -- -- Historical Provider, pantoprazole DR (PROTONIX) 40 mg EC tablet 08/15/2019 06/10/19 -- Korey Randolph MD TAKE 1 TABLET(40 MG) BY MOUTH TWICE DAILY vitamin E 400 unit capsule 08/15/2019 -- -- Historical Provider, No current facility-administered medications for this encounter. Current Outpatient Medications: ??? aspirin 81 mg tablet ??? atorvastatin (LIPITOR) 10 mg tablet ??? cholecalciferol (VITAMIN D-3) 1,000 unit capsule ??? cyanocobalamin, vitamin B-12, (CYANOCOBALAMIN,VIT B-12,,BULK,) powder ??? fluticasone propionate (FLONASE) 50 mcg/actuation nasal spray ??? montelukast (SINGULAIR) 10 mg tablet ??? multivitamin,tx-minerals (VITAMINS AND MINERALS) tablet ??? omega 1-llo-ppt-fish oil (FISH OIL) 60-90-500 mg capsule ??? pantoprazole DR (PROTONIX) 40 mg EC tablet ??? vitamin E 400 unit capsule Social History Tobacco Use Smoking Status Never Smoker Smokeless Tobacco Never Used Substance and Sexual Activity Alcohol Use Not on file Substance and Sexual Activity Drug Use Not on file History reviewed. No pertinent family history. There were no vitals filed for this visit. PT: No results found for requested labs within last 720 hours. INR: No results found for requested labs within last 720 hours. APTT: No results found for requested labs within last 720 hours. Hgb A1C: No results found for requested labs within last 720 hours. CBC RBC: 08/15/2019: 4.06 M/cumm RDW: No results found for requested labs within last 720 hours. MCHC: 08/15/2019: 32.7 g/dL MCH: 08/15/2019: 31.5 pg MCV: 08/15/2019: 96.6 fL* Hct: 08/15/2019: 39.2 % Hgb: 08/15/2019: 12.8 g/dL WBC: 08/15/2019: 9.4 K/cumm MPV: 08/15/2019: 11.4 fL Platelets: 08/15/2019: 243 K/cumm RDW CV: 08/15/2019: 13.5 % RDW Sd: 08/15/2019: 48.3 fL* BMP Glucose: No results found for requested labs within last 720 hours. Calcium: No results found for requested labs within last 720 hours. Sodium: No results found for requested labs within last 720 hours. Potassium: No results found for requested labs within last 720 hours. CO2: No results found for requested labs within last 720 hours. Chloride: No results found for requested labs within last 720 hours. BUN: No results found for requested labs within last 720 hours. Creatinine: No results found for requested labs within last 720 hours. STOP-Bang Total Score: 1 Results for MEGHANA LOYA ( ) as of 08/19/2019 07:52 Ref. Range 08/17/2019 11:18 COVID-19 Coronavirus RNA Unknown Not Detected DOS Physical Exam Medical history, medications, and allergies reviewed. Attestation: I endorse the findings of the anesthesia pre-evaluation assessment dated: 08/19/2019. Airway Exam: Mallampati: II Cervical ROM: FROM TM distance: >4 Jaw ROM: full Cardiovascular Exam: Rate: regular Rhythm: regular Pulmonary Exam: LCTA, bilat Current state: Patient's current state is cooperative and interactive. Anesthesia Plan ASA 2 My patient is approved for the Anesthesia Controlled Medication protocol when under care of a COLD ROLL CATCHER Planned anesthesia: General/TIVA Induction: Induction: intravenous. Postoperative Plan: No plan for postoperative opioid use. No postoperative mechanical ventilation intended. Patient's planned disposition post procedure is Outpatient. Informed Consent: Discussed plan with attending and COLD ROLL CATCHER. Anesthesia plan and risks discussed with patient. [...] MAR Action Action Date Dose Rate Site lidocaine (cardiac) (XYLOCAINE) preservative free injection intravenous, As needed, Starting on Mon08/19/19 at 0830, Anesthesia Intra-op, Indications: Ventricular ArrhythmiasIndications:Ventricular Arrhythmias Given 08/19/2019 8:30 AM CDT 40 mg propofoL (DIPRIVAN) IV intravenous, As needed, Starting on Mon08/19/19 at 0830, Anesthesia Intra-op Given 08/19/2019 8:30 AM CDT 100 mg sodium chloride 0.9% infusion 125 mL/hr, intravenous, Continuous, Starting on Mon08/19/19 at 0845, Recovery (GI) New Bag 08/19/2019 8:23 AM CDT documented in this encounter Care Teams Veterans Service Officer Relationship Specialty Start Date End Date Korey Randolph MD PCP - General Internal Medicine 05/23/17 documented as of this encounter
--- OUTSIDE RECORDS SUMMARY | 2024-04-07 05:38 | XMS_ITS | Encounter Summary ---
Author Organization [facility] Address [address] [place] [address] Care Team Providers Care Venetian Blind Washer Name Role Phone Korey Randolph MD Primary Care Provider Reason for Visit * Reason Onset Date Comments EGD 08/15/2019 Procedure question/concern 08/15/2019 Encounter Details Date Type Department Care Team (Late st Contact Info) Description 08/15/2019 Telephone [facility] Gastroenterology at [address] [place] [address] Faiza Tan EGD; Procedure question/concern Social History Tobacco Use Types Packs/Day Years Used Date Smoking Tobacco: Never Smokeless Tobacco: Never PHQ-2 Answer Date Recorded PHQ-2 Score 0 11/21/2018 Comments No Sex and Gender Information Value Date Recorded Sex Assigned at Not on file 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 Gender Identity Female 08/18/2019 3:36 PM CDT Sexual Orientation Straight 08/18/2019 3: 35 PM CDT documented as of this encounter Miscellaneous Notes * Addendum Note - David Palomino - 08/17/2019 11:16 AM CDTAddended by: DAVID PALOMINO on: 08/17/2019 11:16 AM Modules accepted: Orders * Telephone Encounter - Faiza Tan - 08/15/2019 9:08 AM CDT Scheduled EGD w Dr Nuno 08/19/19 7:30 prep given and mailed address verified, [place] ordered Pt on blood thinner (if yes, list medication and reason for taking): no Has pt had recent stent placement within the last year: no Pt have pacemaker/defibrillator: no Pt diabetic (if yes, insulin or oral meds): no Pt have kidney disease or on dialysis: no Pt on iron: no Mechanical Heart valve: no Instructed pt to call with any medical changes and/or medications/insurance. documented in this encounter Plan of Treatment Not on file documented as of this encounter Visit Diagnoses Diagnosis Stricture and stenosis of esophagus- Primary Gastroesophageal reflux disease, esophagitis presence not specified Abdominal pain, epigastric documented in this encounter Orders Case Request Count Last Ordered Date First Orde red Date CASE REQUEST GI 1 08/15/2019 documented in this encounter Care Teams Venetian Blind Washer Relationship Specialty Start Date End Date Korey Randolph MD PCP - General Internal Medicine 05/23/17 documented as of this encounter
--- OUTSIDE RECORDS SUMMARY | 2024-04-07 05:38 | XMS_ITS | Encounter Summary ---
Author Organization [facility] Healthcare Address [address] [place] [address] Care Team Providers Care Quality Assurance Coach Name Role Phone Korey Randolph MD Primary Care Provider Encounter Details Date Type Department Care Team (Late st Contact Info) Description 08/19/2019 7:30 AM CDT - 08/19/2019 8:00 AM CDT Surgery [address] [address] Dennis Ross MD [address] [place] [address] [place] [address] ESOPHAGOGASTRODUODENOSCOPY Surgery Details Date/Time Status Location OR Service Patient Class Case Class Case Type Trauma Case? 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 1 atorvastatin (LIPITOR) 10 mg tablet TAKE 1 TABLET BY MOUTH EVERY DAY 30 tablet 11 12/20/2018 0 cyanocobalamin, vitamin B-12, (CYANOCOBALAMIN, VIT B-12,,BULK,) powder Take 2 capsules by mouth daily 3 fluticasone propionate (FLONASE) 50 mcg/actuation nasal spray Administer 2 sprays into each nostril daily 16 g 11 01/24/2019 0 montelukast (SINGULAIR) 10 mg tablet 07/24/2019 0 omega 6-pbe-kew-fish oil (FISH OIL) 60-90-500 mg capsule Take by mouth. [address] (PROTONIX) 40 mg EC tablet TAKE 1 TABLET(40 MG) BY MOUTH TWICE DAILY 90 tablet 3 06/10/2019 1 documented as of this encounter Discharge Disposition Disposition Code Departure Means Destination Discharge to home or self care documented in this encounter H&P Notes * Dennis Ross MD - 08/19/2019 8:29 AM CDT Plan of Care : Based on the above findings, I consider Meghana Loya to be an acceptable risk for: Procedure(s): ESOPHAGOGASTRODUODENOSCOPY Source Note - Juan Carlos Charles MD - 08/19/2019 [...] tablet 08/15/2019 -- -- Historical Provider, omega 4-kyw-ssl-fish oil (FISH OIL) 60-90-500 mg capsule Past [...] multivitamin,tx-minerals (VITAMINS AND MINERALS) tablet ??? omega 8-hrr-cue-fish oil (FISH OIL) 60-90-500 mg capsule ??? [...] Medication protocol when under care of a TECHNOLOGY PROFESSIONAL Planned anesthesia: General/TIVA Induction: Induction: intravenous. Postoperative Plan: No plan for postoperative opioid use. No postoperative mechanical ventilation intended. Patient's planned disposition post procedure is Outpatient. Informed Consent: Discussed plan with attending and TECHNOLOGY PROFESSIONAL. Anesthesia plan and risks discussed with patient. [...] Procedure Notes * Dennis Ross MD - 08/19/2019 8:19 AM CDTAssociated Order(s): EGD [facility], [place] Patient Name: Meghana Loya Procedure Date: 08/19/2019 8:19 AM Date of : 1940 Admit Type: Outpatient Age: 79 Gender: Female Attending MD: Dennis Ross M.D. Room: [facility] ROOM 2 Note Status: Finalized Patient Profile: Refer to note in patient chart for documentation of history and physical. Procedure: Upper GI endoscopy Indications: Epigastric abdominal pain Referring MD: Rachel Peace, F.N.P. Providers: Dennis Ross M.D. Impression: - Normal esophagus. - Normal stomach. - Normal examined duodenum. - No specimens collected. Recommendation: - Discharge patient to home. - Resume previous diet. - Continue present medications. - Return to primary care physician as previously scheduled. Medicines: Propofol per Anesthesia Complications: No immediate complications. Estimated Blood Loss: Estimated blood loss: none. Procedure: Pre-Anesthesia Assessment: - This assessment was completed prior to the administration of sedation. The benefits, risks, and alternatives to the procedure and sedation were discussed and informed consent was obtained. The scope was passed under direct vision. The Endoscope GIF-H190 [id number] was introduced through the mouth, and advanced to the second part of duodenum. The upper GI endoscopy was accomplished without difficulty. The patient tolerated the procedure well. Findings: The examined esophagus was normal. The entire examined stomach was normal. The examined duodenum was normal. Electronically signed by Dennis Ross M.D. Dennis Ross M.D. 08/19/2019 8:56:24 AM Number of Addenda: 0 Note Initiated On: 08/19/2019 8:19 AM Procedure Code(s): --- Professional --- 57239, Esophagogastroduodenoscopy, flexible, transoral; diagnostic, including collection of specimen(s) by brushing or washing, when performed (separate procedure) Diagnosis Code(s): --- Professional --- R10.13, Epigastric pain CPT copyright 2017 [employer]. All rights reserved. The codes documented in this report are preliminary and upon seed sales manager review may be revised to meet current compliance requirements. Recognized by the [employer] for promoting quality in endoscopy documented in this encounter Miscellaneous Notes * Perioperative Nursing Note - Yashira Ospina RN - 08/19/2019 9:[address] Ross was here and talked with pt and her daughter about the procedure and to follow up with her primary doctor. * Result Encounter Note - Rachel Peace NP - 08/19/2019 9:35 AM CDT I spoke to patient over the phone regarding her EGD report to which she noted much improvement since taking pepcid, undergoing esophageal dilatation. No further issues and improved prior symptoms. Will continue with daily protonix, holding nightly ASA D/T reflux. Was advised she can cancel appointment Monday if still feeling well (plans to call Mon AM if to cancel if desired). documented in this encounter Plan of Treatment Not on file documented as of this encounter Procedures Procedure Name Priority Date/Time Associated Diagnosis Comments ESOPHAGOGASTRODUODENOSCOPY 08/18 8:23 AM CDT Stricture and stenosis of esophagus Gastroesophageal reflux disease, esophagitis presence not specified Abdominal pain, epigastric EGD 08/19/2019 8:19 AM CDT documented in this encounter Results * EGD (08/19/2019 8:19 AM CDT) Anatomical Region Laterality Modality Other Narrative Procedure Note Dennis Ross MD - 08/19/2019 8:19 AM CDT [facility] [place] Patient Name: Meghana Loya Procedure Date: 08/19/2019 8:19 AM Date of : 1940 Admit Type: Outpatient Age: 79 Gender: Female Attending MD: Dennis Ross M.D. Room: [facility] ROOM 2 Note Status: Finalized Patient Profile: Refer to note in patient chart for documentation of history and physical. Procedure: Upper GI endoscopy Indications: Epigastric abdominal pain Referring MD: Rachel Peace, F.N.P. Providers: Dennis Ross M.D. Impression: - Normal esophagus. - Normal stomach. - Normal examined duodenum. - No specimens collected. Recommendation: - Discharge patient to home. - Resume previous diet. - Continue present medications. - Return to primary care physician as previously scheduled. Medicines: Propofol per Anesthesia Complications: No immediate complications. Estimated Blood Loss: Estimated blood loss: none. Procedure: Pre-Anesthesia Assessment: - This assessment was completed prior to the administration of sedation. The benefits, risks, and alternatives to theprocedure and sedation were discussed and informed consent was obtained. The scope was passed under direct vision.The Endoscope GIF-H190 [id number] was introduced throughthe mouth, and advanced to the second part of duodenum.The upper GI endoscopy was accomplished withoutdifficulty. The patient tolerated the procedure well. Findings: The examined esophagus was normal. The entire examined stomach was normal. The examined duodenum was normal. Electronically signed by Dennis Ross M.D. Dennis Ross M.D. 08/19/2019 8:56:24 AM Number of Addenda: 0 Note Initiated On: 08/19/2019 8:19 AM Procedure Code(s): --- Professional --- 12936, Esophagogastroduodenoscopy, flexible, transoral; diagnostic, including collection of specimen(s) by brushing or washing, when performed (separate procedure) Diagnosis Code(s): --- Professional --- R10.13, Epigastric pain CPT copyright 2017 [employer]. All rights reserved. The codes documented in this report are preliminary and upon seed sales manager reviewmay be revised to meet current compliance requirements. Recognized by the [employer] for promoting quality in endoscopy Dennis Ross MD ENDOSCOPY PROCEDURES Final Re sult documented in this encounter Visit Diagnoses Diagnosis Stricture and stenosis of esophagus Gastroesophageal reflux disease Esophageal reflux Abdominal pain, epigastric Stricture and stenosis of esophagus Gastroesophageal reflux disease, esophagitis presence not specified Abdominal pain, epigastric documented in this encounter Admitting Diagnoses Diagnosis Stricture and stenosis of esophagus Gastroesophageal reflux disease Esophageal reflux Abdominal pain, epigastric documented in this encounter Administered Medications Inactive Administered Medications - up to 3 most recent administrations Medication Order MAR Action Action Date Dose Rate Site ondansetron (ZOFRAN) injection 4 mg 4 mg, intravenous, Administer over 2 Minutes, Every 30 min PRN, nausea, vomiting, Starting on Mon08/19/19 at 0800, For 2 doses, Recovery (GI), Indications: Nausea and VomitingIndications:Nausea and Vomiting sodium chloride 0.9% flush 0.5-20 mL 0.5-20 mL, intra-catheter, Every 8 hours scheduled, First dose on Mon08/19/19 at 0830, Pre-Procedure (GI), Flush volume based on line type and size. sodium chloride 0.9% flush 0.5-20 mL 0.5-20 mL, intra-catheter, As needed, line care, Starting on Mon08/19/19 at 0759, Pre-Procedure (GI), Flush volume based on line type and size. Flush before and after each use. sodium chloride 0.9% infusion 30 mL/hr, intravenous, Continuous, Starting on Mon08/19/19 at 0830, Pre-Procedure (GI) New Bag 08/19/2019 8:24 AM CDT 30 mL/hr 30 mL/hr sodium chloride 0.9% infusion 125 mL/hr, intravenous, Continuous, Starting on Mon08/19/19 at 0845, Recovery (GI) New Bag 08/19/2019 8:23 AM CDT documented in this encounter Active and Recently Administered Medications Times are shown in CDT. Scheduled Medication Order 08/17/2019 08/18/2019 08/19/2019 sodium chloride 0.9% flush 0.5-20 mL 0.5-20 mL, intra-catheter, Every 8 hours scheduled, First dose on Mon08/19/19 at 0830, Pre-Procedure (GI), Flush volume based on line type and size. 0800 (MAR Hold - Pro vider: Automatic Transfer Provider - Reason: Patient not available)0830 (Dose Auto Held - Provider: Automatic Transfer Provider)1340 (MAR Unhold - Provider: Automatic Discharge Provider) Continuous Medication Order 08/17/2019 08/18/2019 08/19/2019 sodium chloride 0.9% infusion 30 mL/hr, intravenous, Continuous, Starting on Mon08/19/19 at 0830, Pre-Procedure (GI) 0824 (New Bag - Prov ider: Yashira Ospina RN) sodium chloride 0.9% infusion 125 mL/hr, intravenous, Continuous, Starting on Mon08/19/19 at 0845, Recovery (GI) 0823 (New Bag - Prov ider: Juan Carlos Charles MD) PRN Medication Order 08/17/2019 08/18/2019 08/19/2019 ondansetron (ZOFRAN) injection 4 mg 4 mg, intravenous, Administer over 2 Minutes, Every 30 min PRN, nausea, vomiting, Starting on Mon08/19/19 at 0800, For 2 doses, Recovery (GI), Indications: Nausea and Vomiting 0800 (JUN Hold - Pro vider: Automatic Transfer Provider - Reason: Patient not available)1340 ([facility] Unhold - Provider: Automatic Discharge Provider) sodium chloride 0.9% flush 0.5-20 mL 0.5-20 mL, intra-catheter, As needed, line care, Starting on Mon08/19/19 at 0759, Pre-Procedure (GI), Flush volume based on line type and size. Flush before and after each use. 0800 (JUN Hold - Pro vider: Automatic Transfer Provider - Reason: Patient not available)1340 ([facility] Unhold - Provider: Automatic Discharge Provider) documented in this encounter Orders Medications Ordered That Jeferson ht Not Have Been Administered Count Last Ordered Date First Ordered Date ondansetron (ZOFRAN) injection 4 mg 1 08/18 sodium chloride 0.9% flush 0.5-20 mL 2 08/01 sodium chloride 0.9% infusion 1 08/19/2019 documented in this encounter Care Teams Quality Assurance Coach Relationship Specialty Start Date End Date Korey Randolph MD PCP - General Internal Medicine 05/23/17 documented as of this encounter
--- OUTSIDE RECORDS SUMMARY | 2024-04-07 05:38 | XMS_ITS | Encounter Summary ---
Author Organization [facility] Healthcare Address [address] [place] [address] Care Team Providers Care Log Grader Name Role Phone Korey Randolph MD Primary Care Provider Encounter Details Date Type Department Care Team (Late st Contact Info) Description 08/17/2019 11:15 AM CDT [address] [address] Dennis Ross MD [address] [place] [id number] Stricture and stenosis of esophagus Discharge Disposition: Discharge to home or self care Social History Tobacco Use Types Packs/Day Years Used Date Smoking Tobacco: Never Smokeless Tobacco: Never PHQ-2 Answer Date Recorded PHQ-2 Score 0 11/21/2018 Comments No Sex and Gender Information Value Date Recorded Sex Assigned at Not on file 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 Gender Identity Female 08/18/2019 3:36 PM CDT Sexual Orientation Straight 08/18/2019 3: 35 PM CDT documented as of this encounter Discharge Disposition Disposition Code Departure Means Destination Discharge to home or self care documented in this encounter Plan of Treatment Not on file documented as of this encounter Procedures Procedure Name Priority Date/Time Associated Diagnosis Comments COVID-19 CORONAVIRUS RNA Routine 08/17/2019 11:18 AM CDT documented in this encounter Results * COVID-19 Coronavirus RNA Nasopharyngeal (08/17/2019 11:18 AM CDT) COVID-19 RNA Not Detected ROOPA TSANG (JULI) Comment: Interpretive Data Testing performed at [facility]. The 2019-Novel Coronavirus Assay (COVID-19) Real Time RT-PCR assay is for in vitro diagnostic use under FDA emergency use authorization only. A negative RT-PCR result does not preclude infection with COVID-19 and should not be used as the sole basis for treatment or other patient management decisions. Additional sample types have been validated according to CLIA regulations. ?? Current Interpretive Data was last revised on 2019. Testing performed by: [facility], [address] [place]., [address] Nasopharyngeal 08/17/2019 11 :18 AM CDT 08/17/2019 2:33 PM CDT Dennis Ross MD LAB MICROBIOLOGY - GENERAL OR DERABLES Final Result CARYN SHARAN (JULI) [address] [facility] Department [place] [address] documented in this encounter Visit Diagnoses Diagnosis Stricture and stenosis of esophagus documented in this encounter Care Teams Log Grader Relationship Specialty Start Date End Date Korey Randolph MD PCP - General Internal Medicine 05/23/17 documented as of this encounter
--- OUTSIDE RECORDS SUMMARY | 2024-04-07 05:38 | XMS_ITS | Encounter Summary ---
Author Organization [facility] Address [address] [place] [address] Care Team Providers Care Simulation Educator Name Role Phone Korey Randolph MD Primary Care Provider Encounter Details Date Type Department Care Team (Late st Contact Info) Description 12/19/2019 Orders Only [facility] [address] [facility] [address] [place] [address] Korey Randolph MD [address] [place] [address] [address] [place] [address] Social History Tobacco Use Types Packs/Day Years Used Date Smoking Tobacco: Never Smokeless Tobacco: Never PHQ-2 Answer Date Recorded PHQ-2 Score 0 11/21/2018 Comments No Sex and Gender Information Value Date Recorded Sex Assigned at Not on file 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 2 tablet 12/19/2019 1 documented in this encounter Plan of Treatment Not on file documented as of this encounter Visit Diagnoses Not on filedocumented in this encounter Discontinued Medications Medication Sig Discontinue Reason Start Date End Da te montelukast (SINGULAIR) 10 mg tablet 07/24/2019 12/19/2019 omega 3-dbx-nkn-fish oil (FISH OIL) 60-90-500 mg capsule Take by mouth. 12/19/2019 documented as of this encounter Care Teams Simulation Educator Relationship Specialty Start Date End Date Korey Randolph MD PCP - General Internal Medicine 05/23/17 documented as of this encounter
--- OUTSIDE RECORDS SUMMARY | 2024-04-07 05:38 | XMS_ITS | Encounter Summary ---
Author Organization [facility] Healthcare Address [address] [place] [address] Care Team Providers Care Public Health Specialist Name Role Phone Korey Randolph MD Primary Care Provider Encounter Details Date Type Department Care Team (Latest Contact Info) Description 08/19/2019 7:22 AM CDT - 08/19/2019 9:35 AM CDT Hospital Encounter [facility] [address] [place] [address] Dennis Ross MD [address] [place] [address] [place] [address] Discharge Disposition: Discharge to home or self care Social History Tobacco Use Types Packs/Day Years Used Date Smoking Tobacco: Never Smokeless Tobacco: Never PHQ-2 Answer Date Recorded PHQ-2 Score 0 11/21/2018 Comments No Sex and Gender Information Value Date Recorded Sex Assigned at Not on file 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 Gender Identity Female 08/18/2019 3:36 PM CDT Sexual Orientation Straight 08/18/2019 3: 35 PM CDT documented as of this encounter Last Filed Vital Signs Vital Sign Reading Time Taken Comments Blood Pressure 129/72 08/19/2019 9:20 AM CDT Pulse 65 08/19/2019 9:20 AM CDT Temperature 37.1 ??C (98.7 ??F) 08/19/2019 9:20 AM CD T Respiratory Rate 20 08/19/2019 9:20 AM CDT Oxygen Saturation 97% 08/19/2019 9:20 AM CDT Inhaled Oxygen Concentration - - Weight - - Height - - Body Mass Index - - documented in this encounter Discharge Diagnoses Diagnosis Epigastric pain - EPIGASTRIC PAIN Abdominal pain, epigastric Hyperlipidemia, unspecified - HYPERLIPIDEMIA, UNSPECIFIED Gastro-esophageal reflux disease without esophagitis - GASTRO-ESOPHAGEAL REFLUX DISEASE WITHOUT ESOPHAGITIS Unspecified osteoarthritis, unspecified site - UNSPECIFIED OSTEOARTHRITIS, UNSPECIFIED SITE shelter (current) use of aspirin - HALFWAY (CURRENT) USE OF ASPIRIN Other terminal supervisor (current) drug therapy - OTHER MOLD CONSTRUCTION SUPERVISOR (CURRENT) DRUG THERAPY documented in this encounter Medications at Time [...] (SINGULAIR) 10 mg tablet 07/24/2019 0 omega 8-gmm-ymg-fish oil (FISH OIL) 60-90-500 mg capsule Take [...] tablet 08/15/2019 -- -- Historical Provider, omega 9-zgt-nsa-fish oil (FISH OIL) 60-90-500 mg capsule Past [...] multivitamin,tx-minerals (VITAMINS AND MINERALS) tablet ??? omega 9-pok-apr-fish oil (FISH OIL) 60-90-500 mg capsule ??? [...] Medication protocol when under care of a FOUR HORSE HITCH DRIVER Planned anesthesia: General/TIVA Induction: Induction: intravenous. Postoperative Plan: No plan for postoperative opioid use. No postoperative mechanical ventilation intended. Patient's planned disposition post procedure is Outpatient. Informed Consent: Discussed plan with attending and FOUR HORSE HITCH DRIVER. Anesthesia plan and risks discussed with patient. [...] - 08/19/2019 8:19 AM CDTAssociated Order(s): EGD [facility] Patient Name: Meghana Loya Procedure Date: 08/19/2019 8:19 AM Date of : 1940 Admit Type: Outpatient Age: 79 Gender: Female Attending MD: Dennis Ross M.D. Room: [facility] ENDOSCOPY ROOM 2 Note Status: Finalized [...] passed under direct vision. The Endoscope GIF-H190 [id number] was introduced through the mouth, and advanced [...] 8:19 AM Procedure Code(s): --- Professional --- 52955, Esophagogastroduodenoscopy, flexible, transoral; diagnostic, including collection of specimen(s) by brushing or washing, when performed (separate procedure) Diagnosis Code(s): --- Professional --- R10.13, Epigastric pain CPT copyright 2017 [employer]. All rights reserved. The codes documented in this report are preliminary and upon manufacturers service representative review may be revised to meet current compliance requirements. Recognized by the [employer] for promoting quality in endoscopy documented in this encounter Miscellaneous Notes * Perioperative Nursing Note - Yashira Ospina, RN - 08/19/2019 9:38 AM CDT 0900 [...] still feeling well (plans to call Mon if to cancel if desired). documented in [...] Ross MD - 08/19/2019 8:19 AM CDT [facility] Patient Name: Meghana Loya Procedure Date: 08/19/2019 8:19 AM Date of : 1940 Admit Type: Outpatient Age: 79 Gender: Female Attending MD: Dennis Ross M.D. Room: [facility] ENDOSCOPY ROOM 2 Note Status: Finalized Patient Profile: Refer to note in patient chart for documentation of history and physical. Procedure: Upper GI endoscopy Indications: Epigastric abdominal pain Referring MD: Patricia Kenyon Providers: Dennis Ross M.D. Impression: - Normal [...] was passed under direct vision.The Endoscope GIF-H190 [id number] was introduced throughthe mouth, and advanced to [...] 8:19 AM Procedure Code(s): --- Professional --- 28055, Esophagogastroduodenoscopy, flexible, transoral; diagnostic, including collection of specimen(s) by brushing or washing, when performed (separate procedure) Diagnosis Code(s): --- Professional --- R10.13, Epigastric pain CPT copyright 2017 [employer]. All rights reserved. The codes documented in this report are preliminary and upon manufacturers service representative reviewmay be revised to meet current compliance requirements. Recognized by the [employer] for promoting quality [...] based on line type and size. 0800 (BANNER Hold - Pro vider: Automatic Transfer Provider [...] Recovery (GI), Indications: Nausea and Vomiting 0800 (BANNER Hold - Pro vider: Automatic Transfer Provider - Reason: Patient not available)1340 ([facility]NER Unhold - Provider: Automatic Discharge Provider) sodium chloride 0.9% flush 0.5-20 mL 0.5-20 mL, intra-catheter, As needed, line care, Starting on Mon08/19/19 at 0759, Pre-Procedure (GI), Flush volume based on line type and size. Flush before and after each use. 0800 ([facility]ANNER Hold - Pro vider: Automatic Transfer Provider - Reason: Patient not available)1340 ([facility] Unhold - Provider: Automatic Discharge Provider) documented in this encounter Orders Medications Ordered That Jeferson ht Not Have Been Administered Count Last Ordered Date First Ordered Date ondansetron (ZOFRAN) injection 4 mg 1 08/18 sodium chloride 0.9% flush 0.5-20 mL 2 08/01 sodium chloride 0.9% infusion 1 08/19/2019 documented in this encounter Care Teams Public Health Specialist Relationship Specialty Start Date End Date Korey Randolph MD PCP - General Internal Medicine 05/23/17 documented as of this encounter
--- OUTSIDE RECORDS SUMMARY | 2024-04-07 05:38 | XMS_ITS | Encounter Summary ---
Author Organization [facility] Address [address] [place] [address] Care Team Providers Care Unarmed Security Officer Name Role Phone Korey Randolph MD Primary Care Provider Reason for Referral * Diagnostic Imaging (Routine) - Closed Specialty Diagnoses / Procedures Referred By Contac t Referred To Contact Diagnoses Small bowel obstruction, partial (CMS/HCC) (HCC) Procedures XR Abdomen Ap 1 Vw Cristina Shook NP Phone: tel: fax: [address] [phone] Referral ID Status Reason Start Date Expiration Date Visits Re quested Visits Authorized [id number] Closed 04/17/2020 05/17/2021 1 1 AGNETIST Reason for Visit * Diagnostic Imaging (Routine) - Closed Specialty Diagnoses / Procedures Referred By Contac t Referred To Contact Diagnoses Small bowel obstruction, partial (CMS/HCC) (HCC) Procedures XR Abdomen Ap 1 Vw Cristina Shook NP Phone: tel: fax: [address] [phone] Referral ID Status Reason Start Date Expiration Date Visits Re quested Visits Authorized [id number] Closed 04/17/2020 05/17/2021 1 1 Encounter Details Date Type Department Care Team (Latest Contact Info) Description 04/17/2020 2:00 PM GEOMAGNETIST - 04/17/2020 11:59 PM GEOMAGNETIST Hospital Encounter [facility] [address] [place] [address] Korey Randolph MD [address] [facility] [place] [address] Cristina Shook, [address] [place] [address] Small bowel obstruction, partial (CMS/HCC) Discharge Disposition: Discharge to home or self [...] on file Legal Sex Female 11:27 PM GEOMAGNETIST Gender Identity Female 08/18/2019 3:36 PM CDT [...] Name Priority Date/Time Associated Diagnosis Comments XR ABDOMEN AP 1 VIEW Schedule Routine, Read Routine (OP Routine) 04/17/2020 2:28 PM GEOMAGNETIST Small bowel obstruction, partial (CMS/HCC) documented in this encounter Results * XR Abdomen Ap 1 Vw (04/17/2020 2:28 PM GEOMAGNETIST) Anatomical Region Laterality Modality Body, Abdomen N/A Computed Radiogr aphy 04/17/2020 2:39 PM GEOMAGNETIST Impressions 04/17/2020 2:41 PM GEOMAGNETIST Nonobstructive bowel gas pattern, ??The previously seen small bowel dilatation is resolved. Electronically signed by: Isaac Sandoval M.D. Narrative 04/17/2020 2:41 PM GEOMAGNETIST EXAMINATION: XR ABDOMEN AP 1 VIEW ORDERING HEALTHCARE PROVIDER: CRISTINA SHOOK HISTORY: Bowel obstruction suspected (Ped 5-18y) COMPARISON: 04/08/[address] dated 04/05/2020. TECHNIQUE: Supine AP radiograph(s) of the abdomen FINDINGS: The bowel gas pattern is normal. ??Nondilated small bowel and colon is seen. ??The previously seen small bowel dilatation has resolved. ??Cholecystectomy clips are noted. Evaluation for free intraperitoneal air is suboptimally performed on supine radiograph. There is no convincing urolithiasis. A small calcification projects over the right flank which is in the subcutaneous tissues when correlating with prior CT. Procedure Note Isaac Sandoval MD - 04/17/2020 EXAMINATION: XR ABDOMEN AP 1 VIEW ORDERING HEALTHCARE PROVIDER: CRISTINA SHOOK HISTORY: Bowel obstruction suspected (Ped 5-18y) COMPARISON: 04/08/[address] dated 04/05/2020. TECHNIQUE: Supine AP radiograph(s) of the abdomen FINDINGS: The bowel gas pattern is normal. Nondilated small bowel and colon is seen. The previously seen small bowel dilatation has resolved. Cholecystectomy clips are noted. Evaluation for free intraperitoneal air is suboptimally performed on supine radiograph. There is no convincing urolithiasis. A small calcification projects over the right flank which is in the subcutaneous tissues when correlating with prior CT. IMPRESSION: Nonobstructive bowel gas pattern, The previously seen small bowel dilatation is resolved. Electronically signed by: Isaac Sandoval M.D. Cristina Shook METAL FABRICATING INSPECTOR IMG XR PROCEDURES Final Re sult documented in this encounter Visit Diagnoses Diagnosis Small bowel obstruction, partial (CMS/HCC) (HCC) Unspecified intestinal obstruction documented in this encounter Care Teams Unarmed Security Officer Relationship Specialty Start Date End Date Korey Randolph MD PCP - General Internal Medicine 05/23/17 documented as of this encounter
--- OUTSIDE RECORDS SUMMARY | 2024-04-07 05:38 | XMS_ITS | Encounter Summary ---
Author Organization [facility] Address [address] [place] [address] Care Team Providers Care Telephone Surveyor Name Role Phone Korey Randolph MD Primary Care Provider Encounter Details Date Type Department Care Team (Late st Contact Info) Description 08/15/2019 Telephone [place] [facility] [address] [facility] [address] [place] [address] Zuleima Sprague MA Social History Tobacco Use Types Packs/Day Years Used Date Smoking Tobacco: Never Smokeless Tobacco: Never PHQ-2 Answer Date Recorded PHQ-2 Score 0 11/21/2018 Comments No Sex and Gender Information Value Date Recorded Sex Assigned at Not on file 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 Thanks documented in this encounter Plan of Treatment Not on file documented as of this encounter Visit Diagnoses Not on filedocumented in this encounter Care Teams Telephone Surveyor Relationship Specialty Start Date End Date Korey Randolph MD PCP - General Internal Medicine 05/23/17 documented as of this encounter
--- OUTSIDE RECORDS SUMMARY | 2024-04-07 05:38 | XMS_ITS | Encounter Summary ---
Author Organization [facility] Address [address] [place] [address] Care Team Providers Care Ballast Inspector Name Role Phone Korey Randolph MD Primary Care Provider Encounter Details Date Type Department Care Team (Latest Contact Info) Description 04/05/2020 9:22 PM KNIFE OPERATOR - 04/05/2020 10:09 PM KNIFE OPERATOR Hospital Encounter [facility] Discharge Disposition: Discharge to home or self care Social History Tobacco Use Types Packs/Day Years Used Date Smoking Tobacco: Never Smokeless Tobacco: Never PHQ-2 Answer Date Recorded PHQ-2 Score 0 11/21/2018 Comments No Sex and Gender Information Value Date Recorded Sex Assigned at Not on file Legal Sex Female 11:27 PM KNIFE OPERATOR Gender Identity Female 08/18/2019 3:36 PM [...] tablet Take 81 mg by mouth daily. 04/06/2020 atorvastatin (LIPITOR) 10 mg tablet TAKE 1 TABLET BY MOUTH EVERY DAY 30 tablet 11 12/16/2019 12/21/2020 cyanocobalamin, vitamin B-12, (CYANOCOBALAMIN, VIT B-12,,BULK,) powder Take 2 capsules by mouth daily 07/11/2022 fluticasone propionate (FLONASE) 50 mcg/actuation nasal spray SHAKE LIQUID AND USE 2 SPRAYS IN EACH NOSTRIL DAILY 16 g 11 01/13/2020 06/29/2021 LORazepam (ATIVAN) 0.5 mg tablet Take 1-2 tablets (0.5-1 mg total) by mouth as directed Take 30 minutes prior to procedure. 2 tablet 12/19/2019 04/10/2020 montelukast (SINGULAIR) 10 mg tablet Take 10 mg by mouth nightly 04/06/[address] (PROTONIX) 40 mg EC tablet TAKE 1 TABLET(40 MG) BY MOUTH TWICE DAILY 90 tablet 3 06/10/2019 08/05/2020 documented as of this encounter Discharge Disposition Disposition Code Departure Means Destination Discharge to home or self care documented in this encounter Plan of Treatment Not on file documented as of this encounter Visit Diagnoses Not on filedocumented in this encounter Care Teams Ballast Inspector Relationship Specialty Start Date End Date Korey Randolph MD PCP - General Internal Medicine 05/23/17 documented as of this encounter
--- OUTSIDE RECORDS SUMMARY | 2024-04-07 05:38 | XMS_ITS | Encounter Summary ---
Author Organization [facility] Address [address] [place] [address] Care Team Providers Care Manager Heart Name Role Phone Korey Randolph MD Primary Care Provider Reason for Visit * Reason Comments Abdominal Pain lower abdomen, state s she feels like a burning sensation , with nausea and vomiting, and cold sweats Constipation patient states she i s taking a stool softener and drinks water more frequently Gas is taking gas x for symptoms and it relieves some pain Encounter Details Date Type Department Care Team (Latest Contact Info) Description 12/06/2019 2:00 PM CDT Office Visit [facility] Gastroenterology at [address] [place] [phone] Dennis Ross MD [address] [place] [address] [address] [place] [address] Abdominal pain (Primary Dx) Social History Tobacco Use Types Packs/Day Years Used Date Smoking Tobacco: Never Smokeless Tobacco: Never PHQ-2 Answer Date Recorded PHQ-2 Score 0 11/21/2018 Comments No Sex and Gender Information Value Date Recorded Sex Assigned at Not on file Legal Sex Female 11:27 PM SMALL LOT OPERATOR Gender Identity Female 08/18/2019 3:36 PM CDT Sexual Orientation Straight 08/18/2019 3: 35 PM CDT documented as of this encounter Last Filed Vital Signs Vital Sign Reading Time Taken Comments Blood Pressure 114/68 12/06/2019 1:42 PM CDT Pulse 76 12/06/2019 1:42 PM CDT Temperature 36.4 ??C (97.5 ??F) 12/06/2019 1:42 PM CD T Respiratory Rate 16 12/06/2019 1:42 PM CDT Oxygen Saturation 96% 12/06/2019 1:42 PM CDT Inhaled Oxygen Concentration - - Weight 64.2 kg (141 lb 9.6 oz) 12/06/2019 1:42 P M CDT Height 147.3 cm (4' 10 ) 12/06/2019 1:42 PM CDT Body Mass Index 29.59 12/06/2019 1:42 PM CDT documented in this encounter Patient Instructions * Patient Instructions* Dennis Ross MD - 12/06/2019 2:00 PM CDT Hi fiber diet and return 4 weeks documented in this encounter Progress Notes * Dennis Ross MD - 12/06/2019 2:00 PM CDT Subjective/Objective Patient ID: Meghana Dueñas is a 79 y.o. female. Chief Complaint Abdominal Pain (lower abdomen, states she feels like a burning sensation , with nausea and vomiting, and cold sweats), Constipation (patient states she is taking a stool softener and drinks water more frequently), and Gas (is taking gas x for symptoms and it relieves some pain) occ LLQ butning assoc with constipation Review of Systems Constitutional: Negative for appetite change, fatigue and unexpected weight change. HENT: Negative for dental problem, sore throat and trouble swallowing. Eyes: Negative for photophobia. Respiratory: Negative for shortness of breath and wheezing. Cardiovascular: Negative for chest pain, palpitations and leg swelling. Gastrointestinal: Positive for abdominal distention, abdominal pain and constipation. Negative for blood in stool, diarrhea, nausea, rectal pain and vomiting. Endocrine: [...] oriented to person, place, and time. Assessment/Plan There are no diagnoses linked to this encounter. documented in this encounter Miscellaneous Notes * Assessment & Plan Note - Dennis Ross MD - 12/06/2019 2:04 PM CDT Associated Problem(s): LLQ pain manuy months of intermitent LLQ burning 2 hours duration no inciting or relieving factors. 01/14 colon, recent CT, EGD 08/20. No systemic sx/signs. Constipation and irregular bms. Lives alone and eating habits no fiber. Will try hi fiber diet and recap in 4 weeks documented in this encounter Plan of Treatment Not on file documented as of this encounter Visit Diagnoses Diagnosis Abdominal pain- Primary Abdominal pain, unspecified site documented in this encounter Care Teams Manager Heart Relationship Specialty Start Date End Date Korey Randolph MD PCP - General Internal Medicine 05/23/17 documented as of this encounter
--- OUTSIDE RECORDS SUMMARY | 2024-04-07 05:38 | XMS_ITS | Encounter Summary ---
Author Organization [facility] Address [address] [place] [address] Care Team Providers Care Social Sciences Instructor Name Role Phone Korey Randolph MD Primary Care Provider Reason for Visit * Reason Comments Follow-up Irritable Bowel Syndrome has had a diet change and symptoms have improved Encounter Details Date Type Department Care Team (Latest Contact Info) Description 12/31/2019 2:30 PM CDT Office Visit [facility] Gastroenterology at [address] [place] [address] Dennis Ross MD [address] [place] [address] [address] [place] [address] LLQ pain (Primary Dx) Social History Tobacco Use Types Packs/Day Years Used Date Smoking Tobacco: Never Smokeless Tobacco: Never PHQ-2 Answer Date Recorded PHQ-2 Score 0 11/21/2018 Comments No Sex and Gender Information Value Date Recorded Sex Assigned at Not on file 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 Gender Identity Female 08/18/2019 3:36 PM CDT Sexual Orientation Straight 08/18/2019 3: 35 PM CDT documented as of this encounter Last Filed Vital Signs Vital Sign Reading Time Taken Comments Blood Pressure 128/74 12/31/2019 2:16 PM CDT Pulse 77 12/31/2019 2:16 PM CDT Temperature 36.2 ??C (97.1 ??F) 12/31/2019 2:16 PM CD T Respiratory Rate 16 12/31/2019 2:16 PM CDT Oxygen Saturation 96% 12/31/2019 2:16 PM CDT Inhaled Oxygen Concentration - - Weight 64.6 kg (142 lb 6.4 oz) 12/31/2019 2:16 P M CDT Height 147.3 cm (4' 10 ) 12/31/2019 2:16 PM CDT Body Mass Index 29.76 12/31/2019 2:16 PM CDT documented in this encounter Progress Notes * Dennis Ross MD - 12/31/2019 2:30 PM CDT Subjective/Objective Patient ID: Meghana Dueñas is a 79 y.o. female. Chief Complaint Follow-up and Irritable Bowel Syndrome (has had a diet change and symptoms have improved) LLQ pain and constiaption Review of Systems Constitutional: Negative for appetite change, fatigue and unexpected weight change. HENT: Negative for dental problem, sore throat and trouble swallowing. Eyes: Negative for photophobia. Respiratory: Negative for shortness of breath and wheezing. Cardiovascular: Negative for chest pain, palpitations and leg swelling. Gastrointestinal: Positive for abdominal pain and constipation. Negative for blood [...] Constitutional: Appearance: Normal appearance. She is well-developed. She is obese. HENT: Nose: Nose normal. Eyes: General: Lids [...] Diagnoses and all orders for this visit: LLQ pain (R10.32) (Primary) Assessment & Plan: Almost immediately after beginning hi fibe diet her bowels normalized to daily without straining and all abd discomfort disappeared. She is ecstatic at the response. Return prn documented in this encounter Miscellaneous Notes * Assessment & Plan Note - Dennis Ross MD - 12/31/2019 2:40 PM CDT Associated Problem(s): LLQ pain Almost immediately after beginning hi fibe diet her bowels normalized to daily without straining and all abd discomfort disappeared. She is ecstatic at the response. Return prn documented in this encounter Plan of Treatment Not on file documented as of this encounter Visit Diagnoses Diagnosis LLQ pain- Primary Abdominal pain, left lower quadrant documented in this encounter Care Teams Social Sciences Instructor Relationship Specialty Start Date End Date Korey Randolph MD PCP - General Internal Medicine 05/23/17 documented as of this encounter
--- OUTSIDE RECORDS SUMMARY | 2024-04-07 05:38 | XMS_ITS | Encounter Summary ---
Author Organization [facility] Address [address] [place] [address] Care Team Providers Care Sod Farmer Name Role Phone Korey Randolph MD Primary Care Provider Encounter Details Date Type Department Care Team (Late st Contact Info) Description 04/13/2020 Telephone [place] [facility] [address] [facility] [address] [place] [address] Korey Randolph MD [address] [place] [address] [address] [place] [address] Social History Tobacco Use Types Packs/Day Years Used Date Smoking Tobacco: Never Smokeless Tobacco: Never PHQ-2 Answer Date Recorded PHQ-2 Score 0 11/21/2018 Comments No Sex and Gender Information Value Date Recorded Sex Assigned at Not on file Legal Sex Female 11:27 PM 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 Still weak, better each day, still no real BM, eating a soft diet Any medication changes or questions? no Medication reconciliation was completed on patient Do you have transportation for your visit? yes Any other questions or concerns? No spoke to the patient on the phone and scheduled a avelino visit with AM 04/17/20 ANICAL TEST ENGINEER * Telephone Encounter - Tiana Vargas. - 04/13/2020 8:12 AM CST Patient had hospital admission for small bowel obstruction and discharged on 04/10/20. Please contact patient to begin interactive contact, document each phone call placed with at least 3 attempts and schedule an appointment to be seen within the next 7-10 days. ANICAL TEST ENGINEER documented in this encounter Plan of Treatment Not on file documented as of this encounter Visit Diagnoses Not on filedocumented in this encounter Care Teams Sod Farmer Relationship Specialty Start Date End Date Korey Randolph MD PCP - General Internal Medicine 05/23/17 documented as of this encounter
--- OUTSIDE RECORDS SUMMARY | 2024-04-07 05:38 | XMS_ITS | Encounter Summary ---
Author Organization [facility] Address [address] [place] [address] Care Team Providers Care Clinical Lab Scientist Name Role Phone Korey Randolph MD Primary Care Provider Encounter Details Date Type Department Care Team (Late st Contact Info) Description 05/15/2020 Orders Only [facility] [address] [facility] [address] [place] [address] Korey Randolph MD [address] [place] [address] [address] [place] [address] Social History Tobacco Use Types Packs/Day Years Used Date Smoking Tobacco: Never Smokeless Tobacco: Never PHQ-2 Answer Date Recorded PHQ-2 Total Score (If total score is 3 or more points, staff should administer the PHQ-9) 0 04/17/2020 Comments No Sex and Gender Information Value Date Recorded Sex Assigned at Not on file 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 Gender Identity Female 08/18/2019 3:36 PM CDT Sexual Orientation Straight 08/18/2019 3: 35 PM CDT documented as of this encounter Ordered Prescriptions Prescription Sig Dispense Quantity Refills Last Filled Start Date End Date nitrofurantoin monohydrate (MACROBID) 100 mg capsuleIndications :Urinary Tract/Genitourinar y Infection Take 1 capsule (100 mg total) by mouth 2 (two) times a day for 7 days For UTI 14 capsule 05/15/2020 documented in this encounter Plan of Treatment Not on file documented as of this encounter Visit Diagnoses Not on filedocumented in this encounter Care Teams Clinical Lab Scientist Relationship Specialty Start Date End Date Korey Randolph MD PCP - General Internal Medicine 05/23/17 documented as of this encounter
--- OUTSIDE RECORDS SUMMARY | 2024-04-07 05:38 | XMS_ITS | Encounter Summary ---
Author Organization [facility] Address [address] [place] [address] Care Team Providers Care Lead Designer Name Role Phone Korey Randolph MD Primary Care Provider Reason for Visit * Reason Comments Sinus Problem Cough Headache Encounter Details Date Type Department Care Team (Late st Contact Info) Description 02/26/2020 9:30 AM ON AIR HOST Telemedicine [facility] [address] [facility] [address] [place] [address] Lou Shook, PENELOPE [address] [place] [address] Acute non-recurrent pansinusitis (Primary Dx); BMI 29.0-29.9,adult Social History Tobacco Use Types Packs/Day Years Used Date Smoking Tobacco: Never Smokeless Tobacco: Never PHQ-2 Answer Date Recorded PHQ-2 Score 0 11/21/2018 Comments No Sex and Gender Information Value Date Recorded Sex Assigned at Not on file Legal Sex Female 11:27 PM ON AIR HOST Gender Identity Female 08/18/2019 3:36 PM CDT Sexual Orientation Straight 08/18/2019 3: 35 PM CDT documented as of this encounter Last Filed Vital Signs Vital Sign Reading Time Taken Comments Blood Pressure - - Pulse - - Temperature 36.2 ??C (97.1 ??F) 02/26/2020 8:43 AM CS T Respiratory Rate - - Oxygen Saturation - - Inhaled Oxygen Concentration - - Weight 63.5 kg (140 lb) 02/26/2020 8:43 AM ON AIR HOST Height 147.3 cm (4' 10 ) 02/26/2020 8:43 AM ON AIR HOST Body Mass Index 29.26 02/26/2020 8:43 AM ON AIR HOST documented in this encounter Ordered Prescriptions Prescription Sig Dispense Quantity Refills Last Filled Start Date End Date amoxicillin-clavul anate (AUGMENTIN) 875-125 mg per tablet Take 1 tablet by mouth 2 (two) times a day for 10 days 20 tablet 02/26/2020 03/07/2020 documented in this encounter Progress Notes * Lou Shook NP - 02/26/2020 9:30 AM CST Images from the original note were not included. [facility] Patient ID: Meghana Dueñas is a 79 y.o. female Chief Complaint. Chief Complaint Patient presents with ??? Sinus Problem ??? Cough ??? Headache HPI: Meghana Dueñas presents today for televisit. This was a telemedicine visit with Meghana Dueñas alone which took place via Telephone. During thevisit, I was located in the office and the patient was located at home in the [facility]. The patient visit started at 0905 and ended at 09. Total encounter time was 20 minutes, which includes time spent today on pre charting, the patient encounter, and post charting. The patient has been informed that the visit may not be secure and acknowledged the information. I have explained the option of participating in a telephone or video visit during the COVID-19 public health emergency to the patient. After being given an opportunity to ask questions about and discuss this type of visit, the patient verbally consented to proceeding with the telephone/video visit.The patient understands that this service replaces an office visit and they may be billed and/or responsible for any applicable copayments. Lou Shook NP Sinus congestion, cough from drainage, ears feel full, sinus h/a for the past 4 days. Denies SOB, CP, see ROS. Taking Dayquil and Nyquil, using flonase, saline washes. No ill contacts. States she gets pretty bad sinus infections it did not want to go the whole holiday weekend and get worse. Past Medical History: Diagnosis Date ??? GERD (gastroesophageal reflux disease) ??? Hyperlipidemia Past Surgical History: Procedure Laterality Date ??? APPENDECTOMY ??? BLADDER NECK SUSPENSION ??? CHOLECYSTECTOMY ??? COLONOSCOPY 01/17/2014 ??? HYSTERECTOMY ??? UPPER GASTROINTESTINAL ENDOSCOPY HOME MEDICATIONS : atorvastatin (LIPITOR) 10 mg tablet cholecalciferol (VITAMIN D-3) 1,000 unit capsule cyanocobalamin, vitamin B-12, (CYANOCOBALAMIN,VIT B-12,,BULK,) powder fluticasone propionate (FLONASE) 50 mcg/actuation nasal spray montelukast (SINGULAIR) 10 mg tablet multivitamin,tx-minerals (VITAMINS AND MINERALS) tablet pantoprazole DR (PROTONIX) 40 mg EC tablet vitamin E 400 unit capsule amoxicillin-clavulanate (AUGMENTIN) 875-125 mg per tablet aspirin 81 mg tablet LORazepam (ATIVAN) 0.5 mg tablet No Known Allergies Social History Tobacco Use ??? Smoking status: Never Smoker ??? Smokeless tobacco: Never Used Substance Use Topics ??? Alcohol use: Not on file History reviewed. No pertinent family history. Review of Systems: Review of Systems Constitutional: Negative for chills, diaphoresis and fever. HENT: Positive for congestion, sinus pressure, sore throat and voice change. Denies loss of sense of taste and smell Respiratory: Positive for cough. Negative for shortness of breath and wheezing. Cardiovascular: Negative for chest pain. Gastrointestinal: Negative for abdominal pain, diarrhea, nausea and vomiting. Genitourinary: Negative. Musculoskeletal: Negative for myalgias. Neurological: Positive for headaches. Vitals: 02/26/20 0843 Temp: 36.2 ??C (97.1 ??F) TempSrc: Temporal Weight: 63.5 kg (140 lb) Height: 147.3 cm (4' 10 ) Physical Exam: Physical Exam Unable to be performed due to telephone visit Speaking clearly in complete sentences. Sniffling. Hoarse voice. No notable distress. Assessment/Plan Diagnoses and all orders for this visit: Acute non-recurrent pansinusitis (Primary) Continue with home care measures. Will send in antibiotic. We discussed the scheduling and side effects. Stay home and away from others until your feeling better. We discussed red flag symptoms. Patient agreeable with plan and states understanding. BMI 29.0-29.9,adult Healthy diet and push p.o. water intake for now. Other orders - amoxicillin-clavulanate (AUGMENTIN) 875-125 mg per tablet; Take 1 tablet by mouth 2 (two) times aday for 10 days All past family, medical, and social history [...] was in agreementwith the plan of care. BMI Follow-up includes: nutrition counseling and exercise counseling. Body mass index is 29.26 kg/m??. Lou Shook NP Cosigned by Korey Randolph MD at 02/26/2020 10:08 AM ON AIR HOST AIR HOST AIR HOST documented in this encounter Plan of Treatment Not on file documented as of this encounter Visit Diagnoses Diagnosis Acute non-recurrent pansinusitis- Primary BMI 29.0-29.9,adult documented in this encounter Historical Medications * This list may reflect changes made after this encounter. montelukast (SINGULAIR) 10 mg tablet Take 10 mg by mouth nightly 04/06/2020 added in this encounter Care Teams Lead Designer Relationship Specialty Start Date End Date Korey Randolph MD PCP - General Internal Medicine 05/23/17 documented as of this encounter
--- OUTSIDE RECORDS SUMMARY | 2024-04-07 05:38 | XMS_ITS | Encounter Summary ---
Author Organization [facility] Address [address] [place] [address] Care Team Providers Care Competitive Intelligence Analyst Name Role Phone Korey Randolph MD Primary Care Provider Reason for Referral * Diagnostic Imaging (Routine) - Closed Specialty Diagnoses / Procedures Referred By Contjayna t Referred To Contact Diagnoses Small bowel obstruction, partial (CMS/HCC) (HCC) Procedures XR Abdomen Ap 1 Vw Cristina Shook NP Phone: tel: fax: [address] [address] Referral ID Status Reason Start Date Expiration Date Visits Re quested Visits Authorized [id number] Closed 04/17/2020 05/17/2021 1 1 TARY ANALYST Reason for Visit * Reason Comments Hospital Follow Up Encounter Details Date Type Department Care Team (Late st Contact Info) Description 04/17/2020 1:00 PM MILITARY ANALYST Office Visit [facility] [address] [facility] [address] [facility] [address] [place] [address] Cristina Shook NP [address] [place] [address] Hospital discharge follow-up (Primary Dx); Small bowel obstruction, partial (CMS/HCC); BMI 27.0-27.9,adult; Hypokalemia; Stricture and stenosis of esophagus; Gastroesophageal reflux disease without esophagitis Social History Tobacco Use Types Packs/Day Years Used Date Smoking Tobacco: Never Smokeless Tobacco: Never PHQ-2 Answer Date Recorded PHQ-2 Total Score (If total score is 3 or more points, staff should administer the PHQ-9) 0 04/17/2020 Comments No Sex and Gender Information Value Date Recorded Sex Assigned at Not on file Legal Sex Female 11:27 PM MILITARY ANALYST Gender Identity Female 08/18/2019 3:36 PM CDT Sexual Orientation Straight 08/18/2019 3: 35 PM CDT documented as of this encounter Last Filed Vital Signs Vital Sign Reading Time Taken Comments Blood Pressure 126/60 04/17/2020 12:58 PM MILITARY ANALYST Pulse 80 04/17/2020 12:58 PM MILITARY ANALYST Temperature 36.7 ??C (98.1 ??F) 04/17/2020 12:[address] Respiratory Rate 16 04/17/2020 12:58 PM MILITARY ANALYST Oxygen Saturation - - Inhaled Oxygen Concentration - - Weight 62.1 kg (137 lb) 04/17/2020 12:58 PM MILITARY ANALYST Height 149.9 cm (4' 11 ) 04/17/2020 12:58 PM MILITARY ANALYST Body Mass Index 27.67 04/17/2020 12:58 PM MILITARY ANALYST documented in this encounter Progress Notes * Cristina Shook NP - 04/17/2020 1:00 PM CST Images from the original note were not included. [facility] Patient ID: Meghana Dueñas is a 80 y.o. female Chief Complaint. Chief Complaint Patient presents with ??? Hospital Follow Up HPI: Meghana Dueñas presents today for hospital discharge follow-up. Admitted to [facility] April 05 and discharged April 10, 2020. Primary discharge diagnosis small-bowel obstruction. Interactive contact was made April 13, 2020. Patient presents today feeling really well. She is a very pleasant lady. Very active. She is abiding by a soft diet. She is drinking lots of water. She is taking stool softener at bedtime every night. Had a liquid BM with a little bit of formed stool in a yesterday. Denies bleeding or pain. Denies nausea, vomiting. Past Medical History: Diagnosis Date ??? GERD (gastroesophageal reflux disease) ??? Hyperlipidemia Past Surgical History: Procedure Laterality Date ??? APPENDECTOMY ??? BLADDER NECK SUSPENSION ??? CHOLECYSTECTOMY ??? COLONOSCOPY 01/17/2014 ??? HYSTERECTOMY ??? UPPER GASTROINTESTINAL ENDOSCOPY HOME MEDICATIONS : atorvastatin (LIPITOR) 10 mg tablet cholecalciferol (VITAMIN D-3) 1,000 unit capsule cyanocobalamin, vitamin B-12, (CYANOCOBALAMIN,VIT B-12,,BULK,) powder fluticasone propionate (FLONASE) 50 mcg/actuation nasal spray multivitamin,tx-minerals (VITAMINS AND MINERALS) tablet NON FORMULARY, FOR INPATIENT USE, pantoprazole DR (PROTONIX) 40 mg EC tablet vitamin E 400 unit capsule No Known Allergies Social History Tobacco Use ??? Smoking status: Never Smoker ??? Smokeless tobacco: Never Used Substance Use Topics ??? Alcohol use: Not on file History reviewed. No pertinent family history. Review of Systems: Review of Systems Constitutional: Negative for chills, diaphoresis and fever. HENT: Negative for trouble swallowing. Respiratory: Negative for cough and shortness of breath. Cardiovascular: Negative for chest pain. Gastrointestinal: Negative for abdominal distention, abdominal pain, anal bleeding, blood in stool,diarrhea, nausea and vomiting. Genitourinary: Negative for decreased urine volume, difficulty urinating and dysuria. Musculoskeletal: Negative for myalgias. Neurological: Negative for weakness. Vitals: 04/17/20 1258 BP: 126/60 Pulse: 80 Resp: 16 Temp: 36.7 ??C (98.1 ??F) TempSrc: Oral Weight: 62.1 kg (137 lb) Height: 149.9 cm (4' 11 ) Physical Exam: Physical Exam Vitals signs and nursing note reviewed. Constitutional: General: She is not in acute distress. Appearance: She is well-developed. HENT: Head: Normocephalic and atraumatic. Eyes: Pupils: Pupils are equal, round, and reactive to light. Neck: Musculoskeletal: Neck supple. Vascular: No JVD. Trachea: No tracheal deviation. Cardiovascular: Rate and Rhythm: Normal rate and regular rhythm. Heart sounds: Normal heart sounds. Pulmonary: Effort: Pulmonary effort is normal. No respiratory distress. Breath sounds: Normal breath sounds. Abdominal: General: Bowel sounds are normal. There is no distension. Palpations: Abdomen is soft. There is no mass. Tenderness: There is no abdominal tenderness. Comments: Tender with palpation in left lower quadrant. No other tenderness throughout abdomen. Nondistended. Bowel sounds normal. Musculoskeletal: Normal range of motion. Skin: General: Skin is warm and dry. Capillary Refill: Capillary refill takes less than 2 seconds. Neurological: Mental Status: She is alert and oriented to person, place, and time. No visits with results within 1 Week(s) from this visit. Latest known visit with results is: Admission on 04/05/2020, Discharged on 04/10/2020 Component Date Value Ref Range Status ??? WBC 04/05/2020 18.6* 3.8 - 9.9 K/cumm Final ??? Hgb 04/05/2020 14.9 11.9 - 15.5 g/dL Final ??? Hct 04/05/2020 44.8 35.6 - 45.5 % Final ??? Plt 04/05/2020 241 150 - 400 K/cumm Final ??? MPV 04/05/2020 11.3 9.1 - 12.3 fL Final ??? RBC 04/05/2020 4.89 3.90 - 5.20 M/cumm Final ??? MCV 04/05/2020 91.6 81.3 - 96.4 fL Final ??? MCH 04/05/2020 30.5 27.1 - 33.3 pg Final ??? MCHC 04/05/2020 33.3 32.3 - 35.7 g/dL Final ??? RDW CV 04/05/2020 13.4 11.1 - 14.9 % Final ??? RDW SD 04/05/2020 45.4 35.7 - 48.1 fL Final ??? NRBC abs 04/05/2020 0.00 0.00 - 0.01 K/cumm Final ??? Sodium 04/05/2020 137 135 - 145 mmol/L Final ??? Potassium, pl 04/05/2020 4.0 3.3 - 4.9 mmol/L Final ??? Chloride 04/05/2020 100 97 - 110 mmol/L Final ??? CO2 04/05/2020 26 22 - 32 mmol/L Final ??? Anion gap 04/05/2020 11 2 - 15 mmol/L Final ??? BUN 04/05/2020 13 8 - 25 mg/dL Final ??? Creatinine 04/05/2020 0.66 0.60 - 1.10 mg/dL Final ??? Glucose 04/05/2020 140 70 - 199 mg/dL Final ??? Calcium 04/05/2020 10.6* 8.5 - 10.3 mg/dL Final ??? Bilirubin, total 04/05/2020 0.4 0.1 - 1.2 mg/dL Final ??? Protein, pl 04/05/2020 6.8 6.5 - 8.5 g/dL Final ??? Albumin 04/05/2020 4.0 3.5 - 5.0 g/dL Final ??? Alk phos 04/05/2020 97 40 - 130 Units/L Final ??? ALT 04/05/2020 29 7 - 45 Units/L Final ??? AST 04/05/2020 20 10 - 45 Units/L Final ??? Neutrophil abs 04/05/2020 16.3* 1.7 - 6.5 K/cumm Final ??? Imm gran abs 04/05/2020 0.1 0.0 - 0.1 K/cumm Final ??? Lymphocyte abs 04/05/2020 1.0 0.8 - 3.3 K/cumm Final ??? Monocyte abs 04/05/2020 1.1* 0.2 - 0.8 K/cumm Final ??? Eosinophil abs 04/05/2020 0.1 0.0 - 0.5 K/cumm Final ??? Basophil abs 04/05/2020 0.1 0.0 - 0.1 K/cumm Final ??? Neutrophil pct 04/05/2020 87.6 % Final ??? Imm gran pct 04/05/2020 0.5 % Final ??? Lymphocyte pct 04/05/2020 5.6 % Final ??? Monocyte pct 04/05/2020 5.7 % Final ??? Eosinophil pct 04/05/2020 0.3 % Final ??? Basophil pct 04/05/2020 0.3 % Final ??? Lipase 04/05/2020 26 10 - 99 Units/L Final ??? Color, ur 04/06/2020 Yellow Yellow Final ??? Clarity, ur 04/06/2020 Turbid* Clear Final ??? Specific gravity, ur 04/06/2020 1.025 1.010 - 1.025 Final ??? pH, urine 04/06/2020 8.5 Final ??? Protein, ur ql 04/06/2020 Trace Negative Final ??? Glucose, ur ql 04/06/2020 Negative Negative Final ??? Ketones, ur 04/06/2020 3+* Negative Final ??? Bilirubin, ur 04/06/2020 Negative Negative Final ??? Blood, ur 04/06/2020 Negative Negative Final ? ? Urobilinogen, ur 04/06/2020 2.0* <2.0 mg/dL Final ??? Nitrite, ur 04/06/2020 Negative Negative Final ??? Leukocyte esterase, ur 04/06/2020 Negative Negative Final ??? UA reflex comment 04/06/2020 Reflex conditions for microscopic UA and culture not met. Final ??? GFR 04/05/2020 84 mL/min/1.73 m2 Final ??? Sepsis Lactate 04/06/2020 1.4 0.7 - 2.0 mmol/L Final ??? Sodium 04/07/2020 144 135 - 145 mmol/L Final ??? Potassium, pl 04/07/2020 3.5 3.3 - 4.9 mmol/L Final ??? Chloride 04/07/2020 110 97 - 110 mmol/L Final ??? CO2 04/07/2020 26 22 - 32 mmol/L Final ??? Anion gap 04/07/2020 8 2 - 15 mmol/L Final ??? BUN 04/07/2020 17 8 - 25 mg/dL Final ??? Creatinine 04/07/2020 0.59* 0.60 - 1.10 mg/dL Final ??? Glucose 04/07/2020 118 70 - 199 mg/dL Final ??? Calcium 04/07/2020 8.6 8.5 - 10.3 mg/dL Final ??? WBC 04/07/2020 11.2* 3.8 - 9.9 K/cumm Final ??? Hgb 04/07/2020 12.4 11.9 - 15.5 g/dL Final ??? Hct 04/07/2020 37.6 35.6 - 45.5 % Final ??? Plt 04/07/2020 197 150 - 400 K/cumm Final ??? MPV 04/07/2020 11.2 9.1 - 12.3 fL Final ??? RBC 04/07/2020 4.02 3.90 - 5.20 M/cumm Final ??? MCV 04/07/2020 93.5 81.3 - 96.4 fL Final ??? MCH 04/07/2020 30.8 27.1 - 33.3 pg Final ??? MCHC 04/07/2020 33.0 32.3 - 35.7 g/dL Final ??? RDW CV 04/07/2020 13.8 11.1 - 14.9 % Final ??? RDW SD 04/07/2020 47.6 35.7 - 48.1 fL Final ??? NRBC abs 04/07/2020 0.00 0.00 - 0.01 K/cumm Final ??? GFR 04/07/2020 87 mL/min/1.73 m2 Final ??? Sodium 04/08/2020 146* 135 - 145 mmol/L Final ??? Potassium, pl 04/08/2020 3.0* 3.3 - 4.9 mmol/L Final ??? Chloride 04/08/2020 116* 97 - 110 mmol/L Final ??? CO2 04/08/2020 22 22 - 32 mmol/L Final ??? Anion gap 04/08/2020 9 2 - 15 mmol/L Final ??? BUN 04/08/2020 15 8 - 25 mg/dL Final ??? Creatinine 04/08/2020 0.55* 0.60 - 1.10 mg/dL Final ??? Glucose 04/08/2020 83 70 - 199 mg/dL Final ??? Calcium 04/08/2020 8.5 8.5 - 10.3 mg/dL Final ??? WBC 04/08/2020 9.5 3.8 - 9.9 K/cumm Final ??? Hgb 04/08/2020 11.3* 11.9 - 15.5 g/dL Final ??? Hct 04/08/2020 34.7* 35.6 - 45.5 % Final ??? Plt 04/08/2020 182 150 - 400 K/cumm Final ??? MPV 04/08/2020 11.4 9.1 - 12.3 fL Final ??? RBC 04/08/2020 3.67* 3.90 - 5.20 M/cumm Final ??? MCV 04/08/2020 94.6 81.3 - 96.4 fL Final ??? MCH 04/08/2020 30.8 27.1 - 33.3 pg Final ??? MCHC 04/08/2020 32.6 32.3 - 35.7 g/dL Final ??? RDW CV 04/08/2020 13.7 11.1 - 14.9 % Final ??? RDW SD 04/08/2020 47.9 35.7 - 48.1 fL Final ??? NRBC abs 04/08/2020 0.00 0.00 - 0.01 K/cumm Final ??? GFR 04/08/2020 89 mL/min/1.73 m2 Final ??? Sodium 04/09/2020 147* 135 - 145 mmol/L Final ??? Potassium, pl 04/09/2020 3.1* 3.3 - 4.9 mmol/L Final ??? Chloride 04/09/2020 116* 97 - 110 mmol/L Final ??? CO2 04/09/2020 19* 22 - 32 mmol/L Final ??? Anion gap 04/09/2020 13 2 - 15 mmol/L Final ??? BUN 04/09/2020 16 8 - 25 mg/dL Final ??? Creatinine 04/09/2020 0.54* 0.60 - 1.10 mg/dL Final ??? Glucose 04/09/2020 64* 70 - 199 mg/dL Final ??? Calcium 04/09/2020 8.6 8.5 - 10.3 mg/dL Final ??? WBC 04/09/2020 8.7 3.8 - 9.9 K/cumm Final ??? Hgb 04/09/2020 11.5* 11.9 - 15.5 g/dL Final ??? Hct 04/09/2020 35.6 35.6 - 45.5 % Final ??? Plt 04/09/2020 187 150 - 400 K/cumm Final ??? MPV 04/09/2020 11.8 9.1 - 12.3 fL Final ??? RBC 04/09/2020 3.78* 3.90 - 5.20 M/cumm Final ??? MCV 04/09/2020 94.2 81.3 - 96.4 fL Final ??? MCH 04/09/2020 30.4 27.1 - 33.3 pg Final ??? MCHC 04/09/2020 32.3 32.3 - 35.7 g/dL Final ??? RDW CV 04/09/2020 13.5 11.1 - 14.9 % Final ??? RDW SD 04/09/2020 46.9 35.7 - 48.1 fL Final ??? NRBC abs 04/09/2020 0.00 0.00 - 0.01 K/cumm Final ??? GFR 04/09/2020 90 mL/min/1.73 m2 Final ??? Sodium 04/10/2020 143 135 - 145 mmol/L Final ??? Potassium, pl 04/10/2020 3.2* 3.3 - 4.9 mmol/L Final ??? Chloride 04/10/2020 113* 97 - 110 mmol/L Final ??? CO2 04/10/2020 21* 22 - 32 mmol/L Final ??? Anion gap 04/10/2020 9 2 - 15 mmol/L Final ??? BUN 04/10/2020 10 8 - 25 mg/dL Final ??? Creatinine 04/10/2020 0.51* 0.60 - 1.10 mg/dL Final ??? Glucose 04/10/2020 107 70 - 199 mg/dL Final ??? Calcium 04/10/2020 8.4* 8.5 - 10.3 mg/dL Final ??? WBC 04/10/2020 7.2 3.8 - 9.9 K/cumm Final ??? Hgb 04/10/2020 10.9* 11.9 - 15.5 g/dL Final ??? Hct 04/10/2020 32.7* 35.6 - 45.5 % Final ??? Plt 04/10/2020 162 150 - 400 K/cumm Final ??? MPV 04/10/2020 11.1 9.1 - 12.3 fL Final ??? RBC 04/10/2020 3.49* 3.90 - 5.20 M/cumm Final ??? MCV 04/10/2020 93.7 81.3 - 96.4 fL Final ??? MCH 04/10/2020 31.2 27.1 - 33.3 pg Final ??? MCHC 04/10/2020 33.3 32.3 - 35.7 g/dL Final ??? RDW CV 04/10/2020 13.5 11.1 - 14.9 % Final ??? RDW SD 04/10/2020 46.0 35.7 - 48.1 fL Final ??? NRBC abs 04/10/2020 0.00 0.00 - 0.01 K/cumm Final ??? GFR 04/10/2020 91 mL/min/1.73 m2 Final Assessment/Plan Diagnoses and all orders for this visit: Hospital discharge follow-up (Primary) ICristina NP have personally reviewed pertinent Hospital/ER data including [employer] and Care Everywhere if available. This patient's discharge medication list has been reviewed and reconciled with her medication list in the office chart and has also been reviewed with patient and/or caregiver. I have noted any changes. Small bowel obstruction, partial (CMS/HCC) - XR Abdomen Ap 1 Vw; Future - Basic metabolic panel; Future - CBC with auto differential; Future Passed a small amount of stool yesterday. No nausea or vomiting. Patient symptomatic leaf feeling improved. Will have labs and x-ray as above. Also recommend following up with your GI specialist. We discussed red flag symptoms which would warrant RTC or ED. Continue with the soft diet for at least another week. Continue with good p.o. hydration. Can also continue with stool softener. BMI 27.0-27.9,adult Her weight is stable. Hypokalemia - Basic metabolic panel; Future Had replacement while inpatient. Will recheck BMP today. Stricture and stenosis of esophagus Denies any difficulty swallowing at this time. Will continue to follow with GI specialist. Gastroesophageal reflux disease without esophagitis Continue Protonix. All past family, medical, and social history [...] plan of care. BMI Follow-up includes: nutrition counseling. Body mass index is 27.67 kg/m??. Cristina Shook NP Cosigned by Korey Randolph MD at 04/17/2020 4:02 PM MILITARY ANALYST TARY ANALYST TARY ANALYST documented in this encounter Plan of Treatment Not on file documented as of this encounter Results * XR Abdomen Ap 1 Vw (04/17/2020 2:28 PM MILITARY ANALYST) Anatomical Region Laterality Modality Body, Abdomen N/A Computed Radiogr aphy 04/17/2020 2:39 PM MILITARY ANALYST Impressions 04/17/2020 2:41 PM MILITARY ANALYST Nonobstructive bowel gas pattern, ??The previously seen small bowel dilatation is resolved. Electronically signed by: Isaac Sandoval M.D. Narrative 04/17/2020 2:41 PM MILITARY ANALYST EXAMINATION: XR ABDOMEN AP 1 VIEW ORDERING [...] resolved. Electronically signed by: Isaac Sandoval M.D. us Cristina Shook PROFESSIONAL HEALTHCARE REPRESENTATIVE IMG XR PROCEDURES Final Re sult * (ABNORMAL) CBC with auto differential (04/17/2020 2:03 PM MILITARY ANALYST) WBC 9.8 3.8 - 9.9 K/cumm [facility] ([place]) Hgb 13.1 11.9 - 15.5 g/dL [facility] ([place]) Hct 40.7 35.6 - 45.5 % [facility] [...] NRBC abs 0.00 0.00 - 0.01 K/cumm [facility] Blood specimen (specimen) 04/17/2020 2:03 PM MILITARY ANALYST 04/17/2020 2:44 PM MILITARY ANALYST us Cristina Shook PROFESSIONAL HEALTHCARE REPRESENTATIVE LAB BLOOD ORDERABLES Final Result [facility] [address] [facility] Department [place] [address] * (ABNORMAL) Basic metabolic panel (04/17/2020 2:03 PM MILITARY ANALYST) Sodium 140 135 - 145 mmol/L [facility] ([place]) [...] (JULI) Glucose 96 70 - 199 mg/dL [facility] ([place]) [...] 2017. Calcium 9.8 8.5 - 10.3 mg/dL [facility] ([place]) Blood specimen (specimen) 04/17/2020 2:03 PM MILITARY ANALYST 04/17/2020 2:44 PM MILITARY ANALYST Cristina Shook PROFESSIONAL HEALTHCARE REPRESENTATIVE LAB BLOOD ORDERABLES Final Result [facility] ([place]) [address] [facility] Department [place] [address] documented in this encounter Visit Diagnoses Diagnosis Hospital discharge follow-up- Primary Other follow-up examination Small bowel obstruction, partial (CMS/HCC) (HCC) Unspecified intestinal obstruction BMI 27.0-27.9,adult Hypokalemia Hypopotassemia Stricture and stenosis of esophagus Gastroesophageal reflux disease without esophagitis Esophageal reflux Small bowel obstruction, partial (CMS/HCC) (HCC) Unspecified intestinal obstruction documented in this encounter Care Teams Competitive Intelligence Analyst Relationship Specialty Start Date End Date Korey Randolph MD PCP - General Internal Medicine 05/23/17 documented as of this encounter
--- OUTSIDE RECORDS SUMMARY | 2024-04-07 05:38 | XMS_ITS | Encounter Summary ---
Author Organization [facility] Address [address] [place] [address] Care Team Providers Care Workday Director Name Role Phone Korey Randolph MD Primary Care Provider Encounter Details Date Type Department Care Team (Late st Contact Info) Description 05/15/2020 Telephone [place] [facility] [address] [facility] [address] [place] [address] Korey Randolph MD [address] [place] [address] [address] [place] [address] Social History Tobacco Use Types Packs/Day Years Used Date Smoking Tobacco: Never Smokeless Tobacco: Never PHQ-2 Answer Date Recorded PHQ-2 Total Score (If total score is 3 or more points, staff should administer the PHQ-9) 0 04/17/2020 Comments No Sex and Gender Information Value Date Recorded Sex Assigned at Not on file Legal Sex Female 11:27 PM DATA MINER Gender Identity Female 08/18/2019 3:36 PM CDT Sexual Orientation Straight 08/18/2019 3: 35 PM CDT documented as of this encounter Miscellaneous Notes * Telephone Encounter - Earnestine Dunlap MA - 05/15/2020 2:15 PM CST LMOM MINER * Telephone Encounter - Korey Randolph MD - 05/15/2020 12:03 PM DATA MINER I called in an antibiotic for UTI if not better needs to come in and and get checked out MINER * Telephone Encounter - Liza Pineda MA - 05/15/2020 8:36 AM DATA MINER jh MINER * Telephone Encounter - Kathleen Panchal - 05/15/2020 8:33 AM CST Pt has burning, pressure, frequency upon urination. No blood. Started last night. Says she gets a uti from time to time. Pt is asking for something to be called in if possible. Please advise. Kenji Henning MINER documented in this encounter Plan of Treatment Not on file documented as of this encounter Visit Diagnoses Not on filedocumented in this encounter Care Teams Workday Director Relationship Specialty Start Date End Date Korey Randolph MD PCP - General Internal Medicine 05/23/17 documented as of this encounter
--- OUTSIDE RECORDS SUMMARY | 2024-04-07 05:38 | XMS_ITS | Encounter Summary ---
Author Organization [facility] Address [address] [place] [address] Care Team Providers Care Personal Lines Underwriter Name Role Phone Korey Randolph MD Primary Care Provider Encounter Details Date Type Department Care Team (Late st Contact Info) Description 12/18/2019 Telephone [place] [facility] [address] [facility] [address] [place] [address] Korey Randolph MD [address] [place] [address] [address] [place] [address] Social History Tobacco Use Types Packs/Day Years Used Date Smoking Tobacco: Never Smokeless Tobacco: Never PHQ-2 Answer Date Recorded PHQ-2 Score 0 11/21/2018 Comments No Sex and Gender Information Value Date Recorded Sex Assigned at Not on file Legal Sex Female 11:27 PM FINANCE INTERN Gender Identity Female 08/18/2019 3:36 PM CDT Sexual Orientation Straight 08/18/2019 3: 35 PM CDT documented as of this encounter Miscellaneous Notes * Telephone Encounter - Earnestine Dunlap MA - 12/19/2019 10:37 AM CDT Patient aware * Telephone Encounter - Korey Randolph MD - 12/19/2019 10:32 AM CDT I called in a dose of lorazepam to take before her dental procedure and if she still not calm enough she can take the 2nd pill after a 1/2 hour * Telephone Encounter - Liza Pineda MA - 12/18/2019 3:42 PM CDT georgiana * Telephone Encounter - Kathleen Panchal - 12/18/2019 3:39 PM CDT Ok to hold for Dr Randolph Pt has a dentist appt for 12/25/19 and she's having 2 teeth pulled. [facility]yno longer use the gas for nervous patients so she's asking if Dr Randolph could call something in for her to get relaxed enough to be able to tolerate the procedure. Please advise. Kenji Henning documented in this encounter Plan of Treatment Not on file documented as of this encounter Visit Diagnoses Not on filedocumented in this encounter Care Teams Personal Lines Underwriter Relationship Specialty Start Date End Date Korey Randolph MD PCP - General Internal Medicine 05/23/17 documented as of this encounter
--- OUTSIDE RECORDS SUMMARY | 2024-04-07 05:39 | XMS_ITS | Encounter Summary ---
Author Organization [facility] Healthcare Address [address] [place] [address] Care Team Providers Care Township Supervisor Name Role Phone Korey Randolph MD Primary Care Provider Encounter Details Date Type Department Care Team (Late st Contact Info) Description 06/06/2018 12:25 PM DEICER INSPECTOR ELECTRIC Lab [address] [address] Mixed hyperlipidemia Social History Tobacco Use Types Packs/Day Years Used Date Smoking Tobacco: Never Smokeless Tobacco: Never Comments Unknown Sex and Gender Information Value Date Recorded Sex Assigned at Not on file Legal Sex Female 11:27 PM DEICER INSPECTOR ELECTRIC Gender Identity Female 08/18/2019 3:36 PM CDT Sexual Orientation Straight 08/18/2019 3: 35 PM CDT documented as of this encounter Plan of Treatment Not on file documented as of this encounter Procedures Procedure Name Priority Date/Time Associated Diagnosis Comments EGFR Routine 06/06/2018 8:40 AM DEICER INSPECTOR ELECTRIC Mixed hyperlipidemia LIPID PANEL Routine 06/06/2018 8:40 AM DEICER INSPECTOR ELECTRIC Mixed hyperlipidemia COMPREHENSIVE METABOLIC PANEL Routine 06/06/2018 8:40 AM DEICER INSPECTOR ELECTRIC Mixed hyperlipidemia documented in this encounter Results * eGFR (06/06/2018 8:40 AM DEICER INSPECTOR ELECTRIC) eGFR 84 mL/min/1.7 3 m2 [facility] Comment: Interpretive Data Reference Interval Normal ?>/= 90 mL/min/1.73m2 Mildly decreased* ? 60 - 89 mL/min/1.73m2 Mildly to moderately decreased ?45 - 59 mL/min/1.73m2 Moderately to severely decreased ??30 - 44 mL/min/1.73m2 Severely decreased ?15 - 29 mL/min/1.73m2 Kidney Failure ?< 15 ??mL/min/1.73m2 *Relative to young adult level If -Egyptian multiply value by 1.16. Estimated glomerular filtration [...] was last reviewed 2015. Blood specimen (specimen) 06/06/2018 8:40 AM DEICER INSPECTOR ELECTRIC 06/06/2018 3:42 PM DEICER INSPECTOR ELECTRIC Narrative [facility] - 06/06/2018 4:40 PM DEICER INSPECTOR ELECTRIC Korey Randolph MD LAB BLOOD ORDERABLES Fi nal Result [facility] [id number] [address] Department [place] [address] * Comprehensive metabolic panel (06/06/2018 8:40 AM DEICER INSPECTOR ELECTRIC) Sodium 144 135 - 145 mmol/L [facility] Potassium, pl 4.2 3.3 - 4.9 mmol/L [facility] Chloride 104 97 - 110 mmol/L [facility] CO2 28 22 - 32 mmol/L [facility] Anion gap 12 2 - 15 mmol/L [facility] BUN 17 8 - 25 mg/dL [facility] Creatinine 0.70 0.60 - 1.10 mg/dL [facility] Glucose 87 70 - 199 mg/dL [facility] Comment: Interpretive Data Fasting glucose >/= 126 [...] Calcium 9.8 8.5 - 10.3 mg/dL [facility] Bilirubin, total 0.5 0.1 - 1.2 mg/dL [facility] Protein, pl 6.9 6.5 - 8.5 g/dL [facility] Albumin 4.3 3.5 - 5.0 g/dL [facility] Alk phos 70 40 - 130 Units/L [facility] ALT 31 7 - 45 Units/L [facility] AST 24 10 - 45 Units/L [facility] Blood specimen (specimen) 06/06/2018 8:40 AM DEICER INSPECTOR ELECTRIC 06/06/2018 3:42 PM DEICER INSPECTOR ELECTRIC Narrative [facility] - 06/06/2018 4:39 PM DEICER INSPECTOR ELECTRIC Korey Randolph MD LAB BLOOD ORDERABLES Fi nal Result [facility] [id number] [address] Department [place] [address] * Lipid panel (06/06/2018 8:40 AM DEICER INSPECTOR ELECTRIC) Cholesterol 183 30 - 199 mg/dL [facility] Comment: Interpretive Data Ages < or = [...] on 2017. Triglycerides 64 <=149 mg/dL [facility] Comment: Interpretive Data Ages < or = [...] Data was last revised on 2017. HDL 61 >=40 mg/dL [facility] Comment: Interpretive Data Ages < or = [...] was last revised on 2017. LDL, calculated 109 <=129 mg/dL [facility] Comment: Interpretive Data Ages < or = [...] was last revised on 2017. Non-HDL Cholesterol 122 mg/dL [facility] Comment: Interpretive Data Ages < or = [...] last revised on 2017. Chol/HDL ratio 3 [facility] Blood specimen (specimen) 06/06/2018 8:40 AM DEICER INSPECTOR ELECTRIC 06/06/2018 3:42 PM DEICER INSPECTOR ELECTRIC Narrative [facility] - 06/06/2018 4:40 PM DEICER INSPECTOR ELECTRIC us Korey Randolph MD LAB BLOOD ORDERABLES Fi nal Result [facility] [id number] [address] Department [place] [address] documented in this encounter Visit Diagnoses Diagnosis Mixed hyperlipidemia documented in this encounter Care Teams Township Supervisor Relationship Specialty Start Date End Date Korey Randolph MD PCP - General Internal Medicine 05/23/17 documented as of this encounter
--- OUTSIDE RECORDS SUMMARY | 2024-04-07 05:39 | XMS_ITS | Encounter Summary ---
Author Organization [facility] Facility Care Team Providers Care Mud Jack Operator Name Role Phone Korey Randolph MD Primary Care Provider Encounter Details Date Type Department Care Team (Latest Contact Info) Description 12/11/2018 Travel Social History Tobacco Use Types Packs/Day Years Used Date Smoking Tobacco: Never Smokeless Tobacco: Never PHQ-2 Answer Date Recorded PHQ-2 Score 0 11/21/2018 Comments Unknown Sex and Gender Information Value Date Recorded Sex Assigned at Not on file Legal Sex Female 11:27 PM WORKERS COMPENSATION CLAIMS EXAMINER Gender Identity Female 08/18/2019 3:36 PM CDT Sexual Orientation Straight 08/18/2019 3: 35 PM CDT documented as of this encounter Plan of Treatment Not on file documented as of this encounter Visit Diagnoses Not on filedocumented in this encounter Care Teams Mud Jack Operator Relationship Specialty Start Date End Date Korey Randolph MD PCP - General Internal Medicine 05/23/17 documented as of this encounter
--- OUTSIDE RECORDS SUMMARY | 2024-04-07 05:39 | XMS_ITS | Encounter Summary ---
Author Organization [facility] Address [address] [place] [address] Care Team Providers Care Android Ui Developer Name Role Phone Korey Randolph MD Primary Care Provider Reason for Referral * Diagnostic Imaging (Routine) - Closed Specialty Diagnoses / Procedures Referred By Angelo siegel Referred To Contact Procedures Screening Mammogram Bilateral W Willie [facility] Health Information Management [address] [place] [address] Phone: tel: fax: Referral ID Status Reason Start Date Expiration Date Visits Re quested Visits Authorized [id number] Closed 07/10/2019 01/18/2021 1 1 Encounter Details Date Type Department Care Team (Late st Contact Info) Description 07/08/2019 Orders Only [facility] Health Information Management [address] [place] [id number] Korey Randolph MD [address] [place] [address] [address] [place] [address] Social History Tobacco Use Types Packs/Day Years Used Date Smoking Tobacco: Never Smokeless Tobacco: Never PHQ-2 Answer Date Recorded PHQ-2 Score 0 11/21/2018 Comments No Sex and Gender Information Value Date Recorded Sex Assigned at Not on file Legal Sex Female 11:27 PM CYBER INCIDENT HANDLER Gender Identity Female 08/18/2019 3:36 PM CDT Sexual Orientation Straight 08/18/2019 3: 35 PM CDT COVID-19 Exposure Response Date Recorded In the last month, have you been in contact with someone who was confirmed or suspected to have Coronavirus / COVID-19? No / Unsure 06/26/2019 8:58 AM CDT documented as of this encounter Plan of Treatment Not on file documented as of this encounter Procedures Procedure Name Priority Date/Time Associated Diagnosis Comments SCREENING MAMMOGRAM BILATERAL W WILLIE Schedule Routine, Read Routine (OP Routine) 07/08/2019 documented in this encounter Results * Screening Mammogram Bilateral W Willie (07/08/2019) Anatomical Region Laterality Modality Breast Bilateral Mammography us Historical Provider MD DIAZ MAMMO PROCEDURES Mireya l Result documented in this encounter Visit Diagnoses Not on filedocumented in this encounter Care Teams Android Ui Developer Relationship Specialty Start Date End Date Korey Randolph MD PCP - General Internal Medicine 05/23/17 documented as of this encounter
--- OUTSIDE RECORDS SUMMARY | 2024-04-07 05:39 | XMS_ITS | Encounter Summary ---
Author Organization [facility] Facility Care Team Providers Care Furniture Crater Name Role Phone Korey Randolph MD Primary Care Provider Encounter Details Date Type Department Care Team (Latest Contact Info) Description 06/26/2019 Travel Social History Tobacco Use Types Packs/Day Years Used Date Smoking Tobacco: Never Smokeless Tobacco: Never PHQ-2 Answer Date Recorded PHQ-2 Score 0 11/21/2018 Comments No Sex and Gender Information Value Date Recorded Sex Assigned at Not on file Legal Sex Female 11:27 PM X RAY DEVELOPER Gender Identity Female 08/18/2019 3:36 PM CDT [...] on filedocumented in this encounter Care Teams Furniture Crater Relationship Specialty Start Date End Date Korey Randolph MD PCP - General Internal Medicine 05/23/17 documented as of this encounter
--- OUTSIDE RECORDS SUMMARY | 2024-04-07 05:39 | XMS_ITS | Encounter Summary ---
Author Organization [facility] Address [address] [place] [address] Care Team Providers Care E Commerce Merchandising Coordinator Name Role Phone Korey Randolph MD Primary Care Provider Encounter Details Date Type Department Care Team (Late st Contact Info) Description 07/09/2019 Orders Only [place] [facility] [address] [facility] [address] [place] [address] Korey Randolph MD [address] [place] [address] [address] [place] [address] Abnormal mammogram of right breast (Primary Dx) Social History Tobacco Use Types Packs/Day Years Used Date Smoking Tobacco: Never Smokeless Tobacco: Never PHQ-2 Answer Date Recorded PHQ-2 Score 0 11/21/2018 Comments No Sex and Gender Information Value Date Recorded Sex Assigned at Not on file Legal Sex Female 11:27 PM SENIOR ACCOUNTING ASSOCIATE Gender Identity Female 08/18/2019 3:36 PM [...] as of this encounter Visit Diagnoses Diagnosis Abnormal mammogram of right breast- Primary documented in this encounter Care Teams E Commerce Merchandising Coordinator Relationship Specialty Start Date End Date Korey Randolph MD PCP - General Internal Medicine 05/23/17 documented as of this encounter
--- OUTSIDE RECORDS SUMMARY | 2024-04-07 05:39 | XMS_ITS | Encounter Summary ---
Author Organization [facility] Medical [facility] Address [address] [place] [address] Care Team Providers Care Cocoa Bean Roaster Name Role Phone Korey Randolph MD Primary Care Provider Encounter Details Date Type Department Care Team (Late st Contact Info) Description 06/12/2019 9:00 AM CDT Lab [place] [facility] [address] [facility] [address] [place] [address] Medicare annual wellness visit, subsequent Social History Tobacco Use Types Packs/Day Years Used Date Smoking Tobacco: Never Smokeless Tobacco: Never PHQ-2 Answer Date Recorded PHQ-2 Score 0 11/21/2018 Comments Unknown Sex and Gender Information Value Date Recorded Sex Assigned at Not on file Legal Sex Female 11:27 PM RECORDING CLERK Gender Identity Female 08/18/2019 3:36 PM CDT Sexual Orientation Straight 08/18/2019 3: 35 PM CDT documented as of this encounter Plan of Treatment Not on file documented as of this encounter Visit Diagnoses Diagnosis Medicare annual wellness visit, subsequent documented in this encounter Care Teams Cocoa Bean Roaster Relationship Specialty Start Date End Date Korey Randolph MD PCP - General Internal Medicine 05/23/17 documented as of this encounter
--- OUTSIDE RECORDS SUMMARY | 2024-04-07 05:39 | XMS_ITS | Encounter Summary ---
Author Organization [facility] Address [address] [place] [address] Care Team Providers Care Light Out Examiner Name Role Phone Korey Randolph MD Primary Care Provider Reason for Referral * Diagnostic Imaging (Routine) - Closed Specialty Diagnoses / Procedures Referred By Angelo siegel Referred To Contact Radiology Diagnoses LLQ pain Procedures CT Abdomen Pelvis WO Contrast Lorenzo Bennett NP Phone: tel: fax: [facility] [address] [place] [address] Referral ID Status Reason Start Date Expiration Date Visits Re quested Visits Authorized [id number] Closed 08/14/2019 02/22/2021 1 1 Reason for Visit * Reason Comments Abdominal Pain Encounter Details Date Type Department Care Team (Late st Contact Info) Description 08/14/2019 1:00 PM CDT Office Visit [facility] [address] [place] [address] Lorenzo Bennett NP [facility] [address] Sonny AMATO [address] [place] [id number] LLQ pain (Primary Dx); BMI 29.0-29.9,adult; Gastroesophageal reflux disease without esophagitis; Intermittent epigastric abdominal pain; Esophageal stricture Social History Tobacco Use Types Packs/Day Years Used Date Smoking Tobacco: Never Smokeless Tobacco: Never PHQ-2 Answer Date Recorded PHQ-2 Score 0 11/21/2018 Comments No Sex and Gender Information Value Date Recorded Sex Assigned at Not on file Legal Sex Female 11:27 PM [employer] Gender Identity Female 08/18/2019 3:36 PM CDT Sexual Orientation Straight 08/18/2019 3: 35 PM CDT documented as of this encounter Last Filed Vital Signs Vital Sign Reading Time Taken Comments Blood Pressure 120/74 08/14/2019 1:05 PM CDT Pulse 80 08/14/2019 1:05 PM CDT Temperature 36.9 ??C (98.4 ??F) 08/14/2019 1:05 PM CD T Respiratory Rate 16 08/14/2019 1:05 PM CDT Oxygen Saturation - - Inhaled Oxygen Concentration - - Weight 64.9 kg (143 lb) 08/14/2019 1:05 PM CDT Height 147.3 cm (4' 10 ) 08/14/2019 1:05 PM CDT Body Mass Index 29.89 08/14/2019 1:05 PM CDT documented in this encounter Patient Instructions * Patient Instructions* Lorenzo Bennett NP - 08/14/2019 1:00 PM CDT Images from the original note were not included. I truly hope you received EXCELLENT care today! [place] and I are thankful you have trusted us with your care. You records will be available in the electronic system for any specialist who utilize the same system. Please do not hesistate to call if you have absolutely any questions or concerns. You may receive a phone call or text asking about your care today. We would love to hear your input and again hope your visit was as EXCELLENT as possible even though you may not have been feeling well! Thank you in advance, Lorenzo documented in this encounter Progress Notes * Lorenzo Bennett NP - 08/14/2019 1:00 PM CDT Images from the original note were not included. [facility] Patient ID: Meghana Dueñas is a 79 y.o. female Chief Complaint. Chief Complaint Patient presents with ??? Abdominal Pain HPI: Meghana Dueñas presents today with 2-3 weeks of dull, burning epigastric pain radiating to back awakening her at night with night sweats, dry heaves, nausea lasting 10-30 minutes with frequency, length of pain increasing over recent weeks. Started taking her Protonix twice a day after noting this pain noting little changes in sx. Following increasing Protonix, mild left lower quadrant pain presented which is often alleviated with bowel movements. Uncertain if these 2 pains are related, but they often occur together. Declines any constipation, stools are bit harder as of recent taking MiraLax once a day period. Declined any hematochezia, melena, diarrhea, constipation or loose stools. Awakens with night sweats D/T pain as well but declined any notable fever, body aches.. Declined anyaggravating factors aside from vinaigrette used as dressing, but she's cut this out 2 weeks ago still experiencing pain. Appetite and weight are stable. She declined any recent contact with really anyone isolating herself at home as advised. Declined any changes, chest pain, pressure or exertional sx. Hx of total hyso years ago w/o any vaginal bleeding. Hx of appendectomy, cholecystomy . She is on daily Protonix with Hx of esophageal dilatation. Last endoscopy completed on 07/11/2016 at [facility] indicated obstructing Schatzki ring which was dilated, 2 cm hernia with normal stomach and duodenum and w/o biopsies. Last colonoscopy unremarkable completed in 2013 recommending routine screening (none since D/T age). No Known Allergies Current Outpatient Medications Medication Sig Dispense Refill ??? aspirin 81 mg tablet Take 81 mg by mouth daily. ??? atorvastatin (LIPITOR) 10 mg tablet TAKE 1 TABLET BY MOUTH EVERY DAY 30 tablet 11 ??? cholecalciferol (VITAMIN D-3) 1,000 unit capsule Take by mouth. ??? cyanocobalamin, vitamin B-12, (CYANOCOBALAMIN,VIT B-12,,BULK,) powder Take by mouth. ??? fluticasone propionate (FLONASE) 50 mcg/actuation nasal spray Administer 2 sprays into each nostril daily 16 g 11 ??? montelukast (SINGULAIR) 10 mg tablet Take 1 tablet (10 mg total) by mouth nightly 30 tablet 11 ??? multivitamin,tx-minerals (VITAMINS AND MINERALS) tablet Take by mouth. ??? omega 0-rwq-rkt-fish oil (FISH OIL) 60-90-500 mg capsule Take by mouth. ??? pantoprazole DR (PROTONIX) 40 mg EC tablet TAKE 1 TABLET(40 MG) BY MOUTH TWICE DAILY 90 tablet 3 ??? vitamin E 400 unit capsule Take 400 Units by mouth daily. No current facility-administered medications for this visit. Review of Systems: Review of Systems Constitutional: Positive for chills (w/ ab pain at night). Negative for activity change, appetite change, diaphoresis, fatigue, fever and unexpected weight change. HENT: Negative for trouble swallowing. Respiratory: Negative. Negative for shortness of breath and wheezing. Cardiovascular: Negative. Negative for chest pain. Gastrointestinal: Positive for abdominal pain (Epigastric/stomach pain) and nausea (dry heaves, nausea w/ epsidoic epigastric pain). Negative for constipation, diarrhea and vomiting. Genitourinary: Negative. Negative for pelvic pain. Musculoskeletal: Positive for back pain (referred back pain from stomach/ant, upper abdomen). Neurological: Negative for dizziness, light-headedness and headaches. Vitals: 08/14/19 1305 BP: 120/74 Pulse: 80 Resp: 16 Temp: 36.9 ??C (98.4 ??F) TempSrc: Oral Weight: 64.9 kg (143 lb) Height: 147.3 cm (4' 10 ) Physical Exam: Physical Exam Constitutional: Appearance: She is well-developed. She is not ill-appearing. HENT: Head: Normocephalic and atraumatic. Eyes: Pupils: Pupils are equal, round, and reactive to light. Cardiovascular: Rate and Rhythm: Normal rate and regular rhythm. Heart sounds: Normal heart sounds. No murmur. No gallop. Pulmonary: Effort: Pulmonary effort is normal. No respiratory distress. Breath sounds: Normal breath sounds. No wheezing. Abdominal: General: Bowel sounds are normal. Palpations: Abdomen is soft. There is no hepatomegaly (no hepatosplenomegaly) or mass. Tenderness: There is abdominal tenderness (to epigastric region w/o radiculopathyl; negative [place] sign w/o palpable mass, hernia or rebound tenderness; mild LLQ pain with deep palpation w/o palpable mass, rebound pain) in the epigastric area and left lower quadrant. There is no right CVA tenderne ss, left CVA tenderness or rebound. Hernia: No hernia is present. Skin: Coloration: Skin is not pale. Neurological: Mental Status: She is alert and oriented to person, place, and time. Psychiatric: Behavior: Behavior normal. Diagnostics: Lab Results Component Value Date HGB 13.5 06/25/2015 HCT 40.0 06/25/2015 LABPLAT 173 06/25/2015 CHOL 174 06/12/2019 TRIG 78 06/12/2019 HDL 57 06/12/2019 ALT 40 06/12/2019 AST 25 06/12/2019 SODIUM 144 06/12/2019 POTASSIUM 4.0 06/12/2019 CHLORIDE 105 06/12/2019 CREATININE 0.67 06/12/2019 BUNSER 21 06/12/2019 CO2 26 06/12/2019 Urine dip in office today indicates specific gravity of 1.010, negative blood, negative leukocytes,negative nitrates, urine bilirubin 0.2, negative protein, negative ketones, negative bilirubin, negative glucose. I personally reviewed all diagnostics, labs, and prior documentations today in clinic. Additionally, medications were reviewed and reconciled. Assessment/Plan Diagnoses and all orders for this visit: LLQ pain (Primary) Assessment & Plan: Urine testing unremarkable, detailed above. LLQ pain, gas presented after increasing protonix whichis possibly to blame for her pain, suspected constipation. Recommending hold and call ab/pelvic CT w/o contrast to complete today after visit to rule out concerns of diverticulitis as cause of her left lower quadrant pain. Addendum below indicating findings on testing and further recommendations beyond the above-mentioned. Orders: - POCT urinalysis dipstick - CT Abdomen Pelvis WO Contrast; Future - CBC with auto differential; Future BMI 29.0-29.9,adult Gastroesophageal reflux disease without esophagitis Assessment & Plan: Stable but concerns of possible gastritis. Protonix once daily morning along with H2 geovanna at night. Dietary modifications discussed in detail with Pt. Orders: - Ambulatory referral to Gastroenterology; Future Intermittent epigastric abdominal pain Assessment & Plan: Acute gastritis VS ulceration D/T progressive sx, Hx of GERD. Recommended decreasing Protonix back to once daily, stopping aspirin therapy (after discussion of risk vs benefit), modifying diet with dietary education provided today in clinic. Nighttime use of H2 geovanna such as Pepcid along with p.r.n. use of Gaviscon. Recommended CBC to check for anemia, consultation to warehouse incentive selector for EGDfor further evaluation of ulceration or other etiologies. Orders: - Ambulatory referral to Gastroenterology; Future Esophageal stricture Assessment & Plan: Prior EGD reviewed with successful dilation in 2017 in no current hoarseness, cough or signs of silent reflux, but notable concerns of gastritis. Recommending consultation for EGD at [facility] for further evaluation given acute concerns. Orders: - Ambulatory referral to Gastroenterology; Future Recommended patient to continue to increase heart healthy diet along with mild- moderate daily exercise as tolerated. Future Appointments Date Time Provider Department Center 08/14/2019 4:00 PM ID1 [facility] 08/21/2019 1:15 PM Lorenzo Bennett NP [facility] 06/12/2020 9:00 AM [facility] 06/26/2020 10:00 AM Korey Randolph MD [facility] [...] care. This note is dictated and transcribed using [employer] Direct Software. Windows Application Administrator variancesmay occur. Despite proofreading, typographical errors may occur. Addendum': Hold and call ab/pelvic CT w/o completed today after visit indicated: IMPRESSION: 1. Large amount of stool throughout the colon, evidence of constipation. 2. Circumferential rectal wall thickening, which may be secondary to underdistention or proctitis. Colonoscopy is recommended to exclude a rectal mass lesion. 3. Colonic diverticulosis without evidence of diverticulitis. 4. Benign, lipid rich left adrenal adenoma. ?? Meghana was called regarding the results of the CT scan which was negative for diverticulitis to which I advised her to increase miralax, suppository laxatives or enema (she's done this before), nightly pepcid and dietary modifications. She will also complete her CBC tomorrow as well to check for anemia, schedule EGD and stop aspirin therapy until EGD. All questions and concerns addressed today over the phone.F/u in office next week and further direction pending CBC. Cosigned by Korey Randolph MD at 08/15/2019 12:06 PM CDT documented in this encounter Miscellaneous Notes * Assessment & Plan Note - Lorenzo Bennett NP - 08/14/2019 2:33 PM CDT Associated Problem(s): LLQ pain Urine testing unremarkable, detailed above. LLQ pain, gas presented after increasing protonix whichis possibly to blame for her pain, suspected constipation. Recommending hold and call ab/pelvic CT w/o contrast to complete today after visit to rule out concerns of diverticulitis as cause of her left lower quadrant pain. Addendum below indicating findings on testing and further recommendations beyond the above-mentioned. * Assessment & Plan Note - Lorenzo Bennett NP - 08/14/2019 2:33 PM CDT Associated Problem(s): Esophageal stricture Prior EGD reviewed with successful dilation in 2017 in no current hoarseness, cough or signs of silent reflux, but notable concerns of gastritis. Recommending consultation for EGD at [facility] for further evaluation given acute concerns. * Assessment & Plan Note - Lorenzo Bennett NP - 08/14/2019 2:32 PM CDT Associated Problem(s): Gastroesophageal reflux disease without esophagitis Stable but concerns of possible gastritis. Protonix once daily morning along with H2 geovanna at night. Dietary modifications discussed in detail with Pt. * Assessment & Plan Note - Lorenzo Bennett NP - 08/14/2019 2:31 PM CDT Associated Problem(s): Intermittent epigastric abdominal pain Acute gastritis VS ulceration D/T progressive sx, Hx of GERD. Recommended decreasing Protonix back to once daily, stopping aspirin therapy (after discussion of risk vs benefit), modifying diet with dietary education provided today in clinic. Nighttime use of H2 geovanna such as Pepcid along with p.r.n. use of Gaviscon. Recommended CBC to check for anemia, consultation to warehouse incentive selector for EGDfor further evaluation of ulceration or other etiologies. documented in this encounter Plan of Treatment Not on file documented as of this encounter Procedures Procedure Name Priority Date/Time Associated Diagnosis Comments POCT URINALYSIS DIPSTICK Routine 08/14/2019 1:25 PM CDT LLQ pain documented in this encounter Results * (ABNORMAL) CBC with auto differential (08/15/2019 [...] (JULI) MCV 96.6(H) 81.3 - 96.4 fL [facility] (JULI) MCH 31.5 27.1 - 33.3 pg [facility] (JULI) MCHC 32.7 32.3 - 35.7 g/dL [facility] (JULI) RDW CV 13.5 11.1 - 14.9 % [facility] (JULI) RDW SD 48.3(H) 35.7 - 48.1 fL [facility] (JULI) NRBC abs 0.00 0.00 - 0.01 K/cumm [facility] (MIAMI) Blood specimen (specimen) 08/15/2019 1:00 PM CDT 08/15/2019 1:40 PM CDT us Lorenzo Bennett CHEMICAL ENGINEERING TEACHER LAB BLOOD ORDERABLES Final R esult [facility] (MIAMI) [address] [facility] [address] [place] [address] * CT Abdomen Pelvis WO Contrast (08/14/2019 3:01 PM CDT) Anatomical Region Laterality Modality Body N/A Computed Tomogra phy 08/14/2019 3:29 PM CDT Impressions 08/14/2019 3:45 PM CDT 1. ??Large amount of stool throughout the colon, evidence of constipation. 2. ??Circumferential rectal wall thickening, which may be secondary to underdistention or proctitis. ??Colonoscopy is recommended to exclude a rectal mass lesion. 3. ??Colonic diverticulosis without evidence of diverticulitis. 4. ??Benign, lipid rich left adrenal adenoma. Electronically signed by: Alvarado Kim M.D. Narrative 08/14/2019 3:45 PM CDT EXAMINATION: CT ABDOMEN PELVIS WO CONTRAST ORDERING HEALTHCARE PROVIDER: LORENZO BENNETT HISTORY: Left lower quadrant abdominal pain and burning sensation for 3 weeks. ?? TECHNIQUE: CT abdomen and pelvis without intravenous and without oral contrast using helical scanning technique. ??Reconstructed coronal and sagittal MPR images reviewed. ??All images stored on PACS. ??Automated exposure control was used as a dose optimization technique for this examination. COMPARISON: None available. FINDINGS: LOWER CHEST: There is mild bibasilar subsegmental atelectasis. ??There is no pleural or pericardial effusion. ??The heart size is normal. LIVER: There is a 1.3 cm low-attenuation lesion with thin peripheral calcification in the left hepatic lobe which measures 10 Hounsfield units and is consistent with a benign cyst. ??The remainder of the liver is normal in appearance. GALLBLADDER: The gallbladder is surgically absent. BILIARY: There is no intrahepatic or extrahepatic biliary ductal dilation. SPLEEN: The spleen is normal in size. ??There are calcified splenic granulomas. ?? PANCREAS: The pancreas is normal in appearance. ??There is no pancreatic ductal dilation or peripancreatic inflammation. ADRENALS: The right adrenal gland is normal in appearance. ??There is a 1.0 cm left adrenal nodule (axial image 28) which measures -3 Hounsfield units and is characteristic of a benign, lipid rich adrenal adenoma. KIDNEYS/URINARY TRACT: The kidneys are symmetric in size. ??There is no evidence of a suspicious renal parenchymal mass lesion. ??There is no urolithiasis or hydronephrosis. ??The urinary bladder is normal in appearance. GI: The small bowel and colon are normal in caliber. ??There is no evidence of bowel obstruction. ??There is a large amount of stool throughout the colon. ??There is mild circumferential rectal wall thickening. ??The appendix is not visualized but there is no evidence of acute appendicitis. ??There is mild colonic diverticulosis without evidence of diverticulitis. PERITONEUM/RETROPERITONEUM: There is no mesenteric or retroperitoneal lymphadenopathy. ??There is no ascites or pneumoperitoneum. ??There is a small, fat-containing umbilical hernia. REPRODUCTIVE: The uterus is surgically absent. ??There are no adnexal masses. VASCULATURE: The abdominal aorta is normal in course and caliber. There is no abdominal aortic aneurysm. ??There is mild atherosclerotic calcification of the abdominal aorta and iliac arteries. MUSCULOSKELETAL: There are no acute or aggressive appearing osseous abnormalities. ??There is mild multilevel degenerative change of the thoracolumbar spine. ??There is mild bilateral hip osteoarthritis. Procedure Note Alvarado Kim MD - 08/14/2019 EXAMINATION: CT ABDOMEN PELVIS WO CONTRAST ORDERING HEALTHCARE PROVIDER: LORENZO BENNETT HISTORY: Left lower quadrant abdominal pain and burning sensation for 3 weeks[address] TECHNIQUE: CT abdomen and pelvis without intravenous and without oral contrast using helical scanning technique. Reconstructed coronal and sagittal MPR images reviewed. All images stored on PACS. Automated exposure control was used as a dose optimization technique for this examination. COMPARISON: None available. FINDINGS: LOWER CHEST: There is mild bibasilar subsegmental atelectasis. There is no pleural or pericardial effusion. The heart size is normal. LIVER: There is a 1.3 cm low-attenuation lesion with thin peripheral calcification in the left hepatic lobe which measures 10 Hounsfield units and is consistent with a benign cyst. The remainder of the liver is normal in appearance. GALLBLADDER: The gallbladder is surgically absent. BILIARY: There is no intrahepatic or extrahepatic biliary ductal dilation. SPLEEN: The spleen is normal in size. There are calcified splenic granulomas. PANCREAS: The pancreas is normal in appearance. There is no pancreatic ductal dilation or peripancreatic inflammation. ADRENALS: The right adrenal gland is normal in appearance. There is a 1.0 cm left adrenal nodule (axial image 28) which measures -3 Hounsfield units and is characteristic of a benign, lipid rich adrenal adenoma. KIDNEYS/URINARY TRACT: The kidneys are symmetric in size. There is no evidence of a suspicious renal parenchymal mass lesion. There is no urolithiasis or hydronephrosis. The urinary bladder is normal in appearance. GI: The small bowel and colon are normal in caliber. There is no evidence of bowel obstruction. There is a large amount of stool throughout the colon. There is mild circumferential rectal wall thickening. The appendix is not visualized but there is no evidence of acute appendicitis. There is mild colonic diverticulosis without evidence of diverticulitis. PERITONEUM/RETROPERITONEUM: There is no mesenteric or retroperitoneal lymphadenopathy. There is no ascites or pneumoperitoneum. There is a small, fat-containing umbilical hernia. REPRODUCTIVE: The uterus is surgically absent. There are no adnexal masses. VASCULATURE: The abdominal aorta is normal in course and caliber. There is no abdominal aortic aneurysm. There is mild atherosclerotic calcification of the abdominal aorta and iliac arteries. MUSCULOSKELETAL: There are no acute or aggressive appearing osseous abnormalities. There is mild multilevel degenerative change of the thoracolumbar spine. There is mild bilateral hip osteoarthritis. IMPRESSION: 1. Large amount of stool throughout the colon, evidence of constipation. 2. Circumferential rectal wall thickening, which may be secondary to underdistention or proctitis. Colonoscopy is recommended to exclude a rectal mass lesion. 3. Colonic diverticulosis without evidence of diverticulitis. 4. Benign, lipid rich left adrenal adenoma. Electronically signed by: Alvarado Kim M.D. us Lorenzo Bennett NP IMG CT PROCEDURES Final Resu lt * (ABNORMAL) POCT urinalysis dipstick (08/14/2019 1:25 PM CDT) Color, Urine, POC Yellow Clarity, ur, POC Cloudy(A) Clear Glucose, ur, POC Negative Negative mg/dL Bilirubin, ur, POC Negative Negative, Small, Moderate, Large Ketones, ur, POC Negative Negative Specific [place], POC 1.010 1.005 - 1.030 Blood, ur, POC Negative Negative pH, ur, POC 6.0 5.0 - 8.0 Protein, ur, POC Negative Negative Urobilinogen, urine, POC 0.2 0.2 - 1.0 mg/dL Nitrite, ur, POC Negative Negative Leukocytes, ur, POC Negative Negative Lot Number [id number]\ Urine 08/14/2019 1:25 PM CDT us Lorenzo Bennett NP POINT OF CARE TEST ORDERABLE S Final Result documented in this encounter Visit Diagnoses Diagnosis LLQ pain- Primary Abdominal pain, left lower quadrant BMI 29.0-29.9,adult Gastroesophageal reflux disease without esophagitis Esophageal reflux Intermittent epigastric abdominal pain Esophageal stricture Stricture and stenosis of esophagus LLQ pain Abdominal pain, left lower quadrant documented in this encounter Discontinued Medications Medication Sig Discontinue Reason Start Date End Da te montelukast (SINGULAIR) 10 mg tablet Take 1 tablet (10 mg total) by mouth nightly Duplicate order 12/11/2018 08/14/2019 documented as of this encounter Historical Medications * This list may reflect changes made after this encounter. Medication Sig Dispense Quantity Refills Last Filled Start D ate End Date montelukast (SINGULAIR) 10 mg tablet 07/24/2019 12/19/2019 added in this encounter Care Teams Light Out Examiner Relationship Specialty Start Date End Date Korey Randolph MD PCP - General Internal Medicine 05/23/17 documented as of this encounter
--- OUTSIDE RECORDS SUMMARY | 2024-04-07 05:39 | XMS_ITS | Encounter Summary ---
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 Carl Dorado MD IMG MRI PROCEDURES Final Resu lt Performing Organization Address City/State/[facility] Co de Phone Number RAD_PACS_OUTSIDE_FILM_[facility] documented in this encounter Visit Diagnoses Not on filedocumented in this encounter Care Teams Template Checker Relationship Specialty Start Date End Date Korey Randolph MD PCP - General Internal Medicine 05/23/17 documented as of this encounter
--- OUTSIDE RECORDS SUMMARY | 2024-04-07 05:39 | XMS_ITS | Encounter Summary ---
Author Organization [facility] Address [address] [place] [address] Care Team Providers Care Biology Department Chair Name Role Phone Korey Randolph MD Primary Care Provider Reason for Referral * Diagnostic Imaging (Routine) - Closed Specialty Diagnoses / Procedures Referred By Angelo siegel Referred To Contact Diagnoses Mild intermittent asthma with acute exacerbation Procedures XR Chest Pa Lateral 2 Views [facility] Cast PA [address] [facility] [address], [place] [address] Phone: tel: fax: [facility] [address] [place] [address] Referral ID Status Reason Start Date Expiration Date Visits Re quested Visits Authorized [id number] Closed 01/16/2019 07/27/2020 1 1 Reason for Visit * Reason Comments Cough Back Pain Encounter Details Date Type Department Care Team (Late st Contact Info) Description 01/16/2019 10:30 AM CDT Office Visit [facility] [address] [facility] [address] [place] [id number] [facility] Cast PA [address] [facility] [address] [place] [address] Mild intermittent asthma with acute exacerbation (Primary Dx); BMI 30.0-30.9,adult Social History Tobacco Use Types Packs/Day Years Used Date Smoking Tobacco: Never Smokeless Tobacco: Never PHQ-2 Answer Date Recorded PHQ-2 Score 0 11/21/2018 Comments Unknown Sex and Gender Information Value Date Recorded Sex Assigned at Not on file 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 Gender Identity Female 08/18/2019 3:36 PM CDT Sexual Orientation Straight 08/18/2019 3: 35 PM CDT documented as of this encounter Last Filed Vital Signs Vital Sign Reading Time Taken Comments Blood Pressure 107/71 01/16/2019 10:19 AM CDT Pulse 69 01/16/2019 10:19 AM CDT Temperature 36.8 ??C (98.3 ??F) 01/16/2019 10:19 AM C DT Respiratory Rate 18 01/16/2019 10:19 AM CDT Oxygen Saturation 98% 01/16/2019 10:19 AM CDT Inhaled Oxygen Concentration - - Weight 65.3 kg (144 lb) 01/16/2019 10:19 AM CDT Height 147.3 cm (4' 10 ) 01/16/2019 10:19 AM CDT Body Mass Index 30.1 01/16/2019 10:19 AM CDT documented in this encounter Ordered Prescriptions Prescription Sig Dispense Quantity Refills Last Filled Start Date End Date amoxicillin-clavul anate (AUGMENTIN) 875-125 mg per tablet Take 1 tablet by mouth 2 (two) times a day for 10 days Take with food and eat plenty of yogurt 20 tablet 01/16/2019 01/26/2019 predniSONE (DELTASONE) 20 mg tablet Take 3 tabs daily for 3 d, then 2 for 2d, then 1 for 1 d 14 tablet 01/16/2019 01/24/2019 documented in this encounter Progress Notes * [facility] Cast PA - 01/16/2019 10:30 AM CDT Subjective/Objective Patient ID: Meghana Dueñas is a 78 y.o. female. Chief Complaint Cough and Back Pain HPI Pt here noting cough, chest tightness. I saw her on 12/04 and 12/11. She was initially provided doxycycline, medrol dose back, plus her proAir. On the latter date, was provided Singular and Symbicort. She tells me she was feeling some better, but in the past week or two, has worsened again. She feels tight in her chest and has a frequent cough, worse w/ speaking, laughing. She will occ get hoarse. Her cough is min prod.She has noticed some wheezing and her upper back is sore. She has min rhinorrhea , no ST or earache. No recent f/c. She hasn't used the proAir much as she wasn't sure when to use it. The symbicort made her shaky and have insomnia, jesus with using it at bedtime, and so essentiallystopped that inhaler. She was never smoker. Review of jorge from 12/11 revealed FVC and FEV1 of 92 and 93%, respectively. He rlast CXR was in Apr. and there was no active disease. Review of Systems Constitutional: Negative for chills and fever. HENT: Negative for congestion, ear pain, postnasal drip, rhinorrhea, sinus pressure and sore throat. Respiratory: Positive for cough, shortness of breath and wheezing. Cardiovascular: Negative for chest pain, palpitations and leg swelling. Gastrointestinal: Negative for diarrhea, nausea and vomiting. Vitals: 01/16/19 1019 BP: 107/71 BP Location: Left arm Patient Position: Sitting Pulse: 69 Resp: 18 Temp: 36.8 ??C (98.3 ??F) TempSrc: Oral SpO2: 98% Weight: 65.3 kg (144 lb) Height: 147.3 cm (4' 10 ) Physical Exam Constitutional: She appears well-developed. No distress. HENT: Head: Normocephalic and atraumatic. Right Ear: Tympanic membrane and ear canal normal. Left Ear: Tympanic membrane and ear canal normal. Nose: Nose normal. No rhinorrhea or congestion. Mouth/Throat: Mucous membranes are moist. No posterior oropharyngeal erythema. Oropharynx is clear. Neck: Normal range of motion. Neck supple. No thyromegaly present. Cardiovascular: Normal rate, regular rhythm and normal heart sounds. No murmur (no edema) heard. Pulmonary/Chest: Effort normal. No respiratory distress. She has no wheezes (tight BS and bronchospastic cough but no r/r/w). She has no rales. Abdominal: Normal appearance. Lymphadenopathy: She has no cervical adenopathy. Neurological: She is alert. Assessment/Plan Diagnoses and all orders for this visit: Mild intermittent asthma with acute exacerbation (Primary) Comments: Cont Singular and restart proAir, q4h prn cough, wheeze, chest tightness. Obtain CXR today. Initiate Augmentin. Symbicort as tolerated. Pred taper beginning at 60mg and side effects, risks reviewed. FU 1 week, sooner if needed. Orders: - XR Chest Pa Lateral 2 Views; Future BMI 30.0-30.9,adult Other orders - predniSONE (DELTASONE) 20 mg tablet; Take 3 tabs daily for 3 d, then 2 for 2d, then 1 for 1 d - amoxicillin-clavulanate (AUGMENTIN) 875-125 mg per tablet; Take 1 tablet by mouth 2 (two) times aday for 10 days Take with food and eat plenty of yogurt Side effects, risks, interactions reviewed with patient. Indications for testing discussed. Any further problems to contact us. She was told what to look out for and verbalized understanding. The patient was given the opportunity to have all questions answered today and was in agreement with the plan of care. Cosigned by Korey Randolph MD at 01/16/2019 12:52 PM CDT documented in this encounter Plan of Treatment Not on file documented as of this encounter Results * XR Chest Pa Lateral 2 Views (01/16/2019 11:54 AM CDT) Anatomical Region Laterality Modality Body, Chest N/A Computed Radiogr aphy 01/16/2019 1:02 PM CDT Impressions 01/16/2019 1:03 PM CDT NO ACUTE PULMONARY DISEASE. Electronically signed by: Adela Bettencourt 01/16/2019 1:03 PM CDT XR CHEST PA LATERAL 2 VIEWS HISTORY: Mild intermittent asthma with (acute) exacerbation. TECHNIQUE: PA and lateral projections. COMPARISON: 04/10/2018. FINDINGS: Heart size is normal. ??No infiltrate or effusion identified. ??Atherosclerotic changes of the aorta. Procedure Note Chano Ruelas MD - 01/16/2019 XR CHEST PA LATERAL 2 VIEWS HISTORY: Mild intermittent asthma with (acute) exacerbation. TECHNIQUE: PA and lateral projections. COMPARISON: 04/10/2018. FINDINGS: Heart size is normal. No infiltrate or effusion identified. Atherosclerotic changes of the aorta. IMPRESSION: NO ACUTE PULMONARY DISEASE. Electronically signed by: Chano Ruelas M.D [facility] FISCHER IMG XR PROCEDURES Final Result documented in this encounter Visit Diagnoses Diagnosis Mild intermittent asthma with acute exacerbation- Primary BMI 30.0-30.9,adult Mild intermittent asthma with acute exacerbation documented in this encounter Discontinued Medications Medication Sig Discontinue Reason Start Date End Da te budesonide-formoterol (SYMBICORT) 160-4.5 mcg/actuation inhaler Inhale 2 puffs 2 (two) times a day Rinse mouth with water after use to reduce aftertaste and incidence of candidiasis. Do not swallow. 12/11/2018 01/16/2019 documented as of this encounter Care Teams Biology Department Chair Relationship Specialty Start Date End Date Korey Randolph MD PCP - General Internal Medicine 05/23/17 documented as of this encounter
--- OUTSIDE RECORDS SUMMARY | 2024-04-07 05:39 | XMS_ITS | Encounter Summary ---
Author Organization [facility] Address [address] [place] [address] Care Team Providers Care Film Process Operator Name Role Phone Korey Randolph MD Primary Care Provider Reason for Visit * Reason Comments Medicare Wellness subsequent Encounter Details Date Type Department Care Team (Late st Contact Info) Description 06/20/2018 10:00 AM CDT Office Visit [place] [place] [facility] [address] [facility] [address] [place] [address] Korey Randolph MD [address] [place] [address] [address] [place] [address] Medicare annual wellness visit, subsequent (Primary Dx); BMI 29.0-29.9,adult; Bilateral nonexudative age-related macular degeneration, unspecified stage; Gastroesophageal reflux disease without esophagitis; Esophageal stricture; Vitamin D deficiency; Mixed hyperlipidemia Social History Tobacco Use Types Packs/Day Years Used Date Smoking Tobacco: Never Smokeless Tobacco: Never Comments Unknown Sex and Gender Information Value Date Recorded Sex Assigned at Not on file 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 Gender Identity Female 08/18/2019 3:36 PM CDT Sexual Orientation Straight 08/18/2019 3: 35 PM CDT documented as of this encounter Last Filed Vital Signs Vital Sign Reading Time Taken Comments Blood Pressure 128/62 06/20/2018 10:15 AM CDT Pulse 77 06/20/2018 10:15 AM CDT Temperature - - Respiratory Rate 18 06/20/2018 10:15 AM CDT Oxygen Saturation 97% 06/20/2018 10:15 AM CDT Inhaled Oxygen Concentration - - Weight 63 kg (139 lb) 06/20/2018 10:15 AM CDT Height 147.3 cm (4' 10 ) 06/20/2018 10:15 AM CDT Body Mass Index 29.05 06/20/2018 10:15 AM CDT documented in this encounter Progress Notes * Korey Randolph MD - 06/20/2018 10:00 AM CDT [facility] DATE OF VISIT: 06/20/2018 DATE: 1940 Vitals: 06/20/18 1015 BP: 128/62 BP Location: Left arm Patient Position: Sitting Pulse: 77 Resp: 18 SpO2: 97% Weight: 63 kg (139 lb) Height: 147.3 cm (4' 10 ) Body mass index is 29.05 kg/m??. Chief Complaint Chief Complaint Patient presents with ??? Medicare Wellness subsequent HPI Meghana Dueñas is a 78 y.o. female presents today for annual subsequent Medicare wellness evaluation. Patient is getting active treatment for her retina disease with a retina specialist macular degeneration. She is getting shots in her right eye and so far the treatments have been affective. 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 The patient still does 5 K races and does not really have any unusual chest pain or shortness of breath with that. She is a now and staying active and independent Social History Socioeconomic History ??? Marital status: Spouse name: Not on file ??? Number of children: Not on file ??? Years of education: Not on file ??? Highest education level: Not on file Occupational History ??? Not on file Social Needs ??? Financial resource strain: Not on file ??? Food insecurity: Worry: Not on file Inability: Not on file ??? Transportation needs: Medical: Not on file Non-medical: Not on file Tobacco Use ??? Smoking status: Never Smoker ??? Smokeless tobacco: Never Used Substance and Sexual Activity ??? Alcohol use: Not on file ??? Drug use: Not on file ??? Sexual activity: Not on file Lifestyle ??? Physical activity: Days per week: Not on file Minutes per session: Not on file ??? Stress: Not on file Relationships ??? Social connections: Talks on phone: Not on file Gets together: Not on file Attends advent service: Not on file Active member of club or organization: Not on file Attends meetings of clubs or organizations: Not on file Relationship status: Not on file ??? Intimate partner violence: Fear of current or ex partner: Not on file Emotionally abused: Not on file Physically abused: Not on file Forced sexual activity: Not on file Other Topics Concern ??? Not on file Social History Narrative ??? Not on file Active Ambulatory Problems Diagnosis Date Noted ??? Gastroesophageal reflux disease without esophagitis 10/07/2016 ??? Mixed hyperlipidemia 10/07/2016 ??? Esophageal stricture 10/07/2016 ??? Macular degeneration, dry 10/07/2016 ??? Vitamin D deficiency 10/07/2016 Resolved Ambulatory Problems Diagnosis Date Noted ??? Lower respiratory infection 04/10/2018 No Additional Past Medical History History reviewed. No pertinent family history. Allergies Allergen Reactions ??? Jibnckz-Wqx-Mvr Reductase Inhibitors REVIEW OF SYSTEMS Review of Systems Constitutional: Negative for chills, diaphoresis, fatigue, fever and unexpected weight change. HENT: Negative for congestion, hearing loss, postnasal drip, sneezing, sore throat, tinnitus and trouble swallowing. Eyes: Positive for visual disturbance. Bilateral macular degeneration Respiratory: Negative for cough, shortness of breath [...] and sleep disturbance. PHYSICAL EXAM Physical Exam Constitutional: She is oriented to person, place, and time. She appears well- developed and well-nourished. HENT: Head: Normocephalic and atraumatic. Right Ear: External ear normal. Left Ear: External ear normal. Nose: Nose normal. Mouth/Throat: Oropharynx is clear and moist. Eyes: Pupils are equal, round, and reactive to light. Conjunctivae and EOM are normal. Neck: Normal range of motion. Neck supple. Cardiovascular: Normal rate, regular rhythm, normal heart sounds and intact distal pulses. Pulmonary/Chest: Breath sounds normal. Abdominal: Soft. Bowel sounds are normal. Genitourinary: Genitourinary Comments: Breast were normal to inspection palpation bilaterally including the lymph.She just had a mammogram a few days ago to an outside hospital. She does have a little clip around the nipple of her right breast from previous biopsy which was negative Musculoskeletal: Normal range of motion. Neurological: She is alert and oriented to person, place, and time. She has normal reflexes. Skin: Skin is warm and dry. Psychiatric: She has a normal mood and affect. Nursing note and vitals reviewed. LAST LABS Lab Results Component Value Date HGB 13.5 06/25/2015 HCT 40.0 06/25/2015 LABPLAT 173 06/25/2015 CHOL 183 06/06/2018 TRIG 64 06/06/2018 HDL 61 06/06/2018 ALT 31 06/06/2018 AST 24 06/06/2018 SODIUM 144 06/06/2018 POTASSIUM 4.2 06/06/2018 CHLORIDE 104 06/06/2018 CREATININE 0.70 06/06/2018 BUNSER 17 06/06/2018 CO2 28 06/06/2018 ASSESSMENT AND PLAN Assessment/Plan Diagnoses and all orders for this visit: Medicare annual wellness visit, subsequent (Primary) - Comprehensive metabolic panel; Future - Lipid panel; Future The self assessment going detail. The home environment safe. The fall risk is minimal. The cognitive and depression screening were good. Speech hearing and swallowing okay. The nutritional status wasfair. She needs to eat more vegetables. She does have a history of esophageal stricture but it was stretched just a few years ago and she is getting her food down okay. The vaccines are up-to-date except for tetanus and shingles she is going to check into that. Her mammogram was just done a few days ago and we do not have the results yet. She stool for Pap smears and she had a colonoscopy 5 yearsago is good for 5 more years. She could try get a bone density as well and she is up-to-date with her eye checks BMI 29.0-29.9,adult Patient's weight is just fine no recommendations there Bilateral nonexudative age-related macular degeneration, unspecified stage Patient's I doctors are keeping close eye on her macular degeneration. She can still drive Gastroesophageal reflux disease without esophagitis Because of her esophageal stricture they have her on pantoprazole so will keep her on that as well Esophageal stricture No clinical reason for a dilation yet Vitamin D deficiency - Vitamin D 25 hydroxy; Future Will check her vitamin-D level next year she is on good replacement therapy Mixed hyperlipidemia Is excellent lipid control on her current dose of Lipitor. We talked about aspirin in the latest controversies with that going to keep her on that No future appointments. All past family, medical, and social history [...] dictated and transcribed by with assistance from [employer]. Undercollar Baster variances may occur. Despite proofreading, typographical errors may occur. documented in this encounter Plan of Treatment Not on file documented as of this encounter Results * Vitamin D 25 hydroxy (06/12/2019 12:14 PM CDT) Vitamin D 25-OH 57 30 - 80 ng/mL [facility] Blood specimen (specimen) 06/12/2019 12:14 PM CDT 06/12/2019 12:14 PM CDT us Korey Randolph MD LAB BLOOD ORDERABLES Fi nal Result [facility] [address] Department [place] [address] * Lipid panel (06/12/2019 12:14 PM CDT) Cholesterol 174 30 - 199 mg/dL [facility] BORJAS Comment: Interpretive Data Ages [...] Data was last revised on 2017. Triglycerides 78 <=149 mg/dL [facility] BORJ[facility] Comment: Interpretive Data [...] Data was last revised on 2017. HDL 57 >=40 mg/dL [facility] Comment: Interpretive Data Ages [...] was last revised on 2017. LDL, calculated 101 <=129 mg/dL [facility] Comment: Interpretive Data Ages < [...] was last revised on 2017. Non-HDL Cholesterol 117 mg/dL [facility] Comment: Interpretive Data Ages < [...] last revised on 2017. Chol/HDL ratio 3 [facility] Blood specimen (specimen) 06/12/2019 12:14 PM CDT 06/12/2019 12:14 PM CDT us Korey Randolph MD LAB [place]OD [place] [address] [address] Department [place] [address] * Comprehensive metabolic panel (06/12/2019 12:14 PM CDT) Sodium 144 135 - 145 mmol/L [facility] Potassium, pl 4.0 3.3 - 4.9 mmol/L [facility] Chloride 105 97 - 110 mmol/L [facility] CO2 26 22 - 32 mmol/L [facility] Anion gap 13 2 - 15 mmol/L [facility] BUN 21 8 - 25 mg/dL [facility] Creatinine 0.67 0.60 - 1.10 mg/dL [facility] Glucose 104 70 - 199 mg/dL [facility] Comment: [...] interpretive data was last revised 2017. Calcium 9.9 8.5 - 10.3 mg/dL [facility] Bilirubin, total 0.5 0.1 - 1.2 mg/dL [facility] Protein, pl 7.3 6.5 - 8.5 g/dL [facility] Albumin 4.5 3.5 - 5.0 g/dL [facility] Alk phos 77 40 - 130 Units/L [facility] ALT 40 7 - 45 Units/L [facility] AST 25 10 - 45 Units/L [facility] Blood specimen (specimen) 06/12/2019 12:14 PM CDT 06/12/2019 12:14 PM CDT us Korey Randolph MD LAB BLOOD ORDERABLES Fi nal Result [facility] [address] Department [place] [address] documented in this encounter Visit Diagnoses Diagnosis Medicare annual wellness visit, subsequent- Primary BMI 29.0-29.9,adult Bilateral nonexudative age-related macular degeneration, unspecified stage Gastroesophageal reflux disease without esophagitis Esophageal reflux Esophageal stricture Stricture and stenosis of esophagus Vitamin D deficiency Mixed hyperlipidemia documented in this encounter Care Teams Film Process Operator Relationship Specialty Start Date End Date Korey Randolph MD PCP - General Internal Medicine 05/23/17 documented as of this encounter
--- OUTSIDE RECORDS SUMMARY | 2024-04-07 05:39 | XMS_ITS | Encounter Summary ---
Author Organization [facility] Medical Group Address [address] [place] [address] Care Team Providers Care Firefighting Equipment Specialist Name Role Phone Korey Randolph MD Primary Care Provider Reason for Visit * Reason Comments Medicare Annual Wellness Visit Subsequen t Encounter Details Date Type Department Care Team (Late st Contact Info) Description 06/26/2019 9:00 AM CDT Office Visit [facility] [address] [place] [address] Korey Randolph MD [address] [place] [address] [address] [place] [address] Medicare annual wellness visit, subsequent (Primary Dx); Class 1 obesity due to excess calories with body mass index (BMI) of 30.0 to 30.9 in adult, unspecified whether serious comorbidity present; Bilateral nonexudative age-related macular degeneration, unspecified stage; Esophageal stricture; Gastroesophageal reflux disease without esophagitis; Mixed hyperlipidemia; Vitamin D deficiency; Spondylosis of lumbar region without myelopathy or radiculopathy Social History Tobacco Use Types Packs/Day Years Used Date Smoking Tobacco: Never Smokeless Tobacco: Never PHQ-2 Answer Date Recorded PHQ-2 Total Score (If total score is 3 or more points, staff should administer the PHQ-9) 0 05/26/2020 Comments No Sex and Gender Information Value Date Recorded Sex Assigned at Not on file Legal Sex Female 11:27 PM SHIRRER Gender Identity Female 08/18/2019 3:36 PM CDT Sexual Orientation Straight 08/18/2019 3: 35 PM CDT COVID-19 Exposure Response Date Recorded In the last month, have you been in contact with someone who was confirmed or suspected to have Coronavirus / COVID-19? No / Unsure 06/26/2019 8:58 AM CDT documented as of this encounter Last Filed Vital Signs Vital Sign Reading Time Taken Comments Blood Pressure 114/60 06/26/2019 9:00 AM CDT Pulse 78 06/26/2019 9:00 AM CDT Temperature - - Respiratory Rate 18 06/26/2019 9:00 AM CDT Oxygen Saturation - - Inhaled Oxygen Concentration - - Weight 66.2 kg (146 lb) 06/26/2019 9:00 AM CDT Height 147.3 cm (4' 10 ) 06/26/2019 9:00 AM CDT Body Mass Index 30.51 06/26/2019 9:00 AM CDT documented in this encounter Progress Notes * Korey Randolph MD - 06/26/2019 9:00 AM CDT [facility] DATE: 1940 Vitals: 06/26/19 0900 BP: 114/60 BP Location: Left arm Patient Position: Sitting Pulse: 78 Resp: 18 Weight: 66.2 kg (146 lb) Height: 147.3 cm (4' 10 ) Body mass index is 30.51 kg/m??. Chief Complaint Chief Complaint Patient presents with ??? Medicare Annual Wellness Visit Subsequent HPI Meghana Dueñas is a 79 y.o. female presents today for her annual subsequent Medicare wellness evaluation follow-up of her various problems. Since I last saw her she has stopped using her Symbicort and ProAir. She associates the wheezing with just the respiratory infection that she had does not feel any restriction of her breathing so will leave her off of that Patient does have a significant history of esophageal stricture that has been dilated in the past. She is on 1 and sometimes 2 pantoprazole a day with good success however The patient has a long history of low back pain and sees the pain clinic regularly and gets good relief from her epidural injections The patient is a and she has been seeing a new significant other and that is been great for her spirits. She says she is safe at home and tries to eat carefully and when the weather is better she does do a lot of walking. She even does 5 K races sometimes Social History Socioeconomic History ??? Marital status: Spouse name: Not on file ??? Number of children: Not on file ??? Years of education: Not on file ??? Highest education level: Not on file Occupational History ??? Not on file Social Needs ??? Financial resource strain: Not on file ??? Food insecurity Worry: Not on file Inability: Not on file ??? Transportation needs Medical: Not on file Non-medical: Not on file Tobacco Use ??? Smoking status: Never Smoker ??? Smokeless tobacco: Never Used Substance and Sexual Activity ??? Alcohol use: Not on file ??? Drug use: Not on file ??? Sexual activity: Not on file Lifestyle ??? Physical activity Days per week: Not on file Minutes per session: Not on file ??? Stress: Not on file Relationships ??? Social connections Talks on phone: Not on file Gets together: Not on file Attends latter-day service: Not on file Active member of club or organization: Not on file Attends meetings of clubs or organizations: Not on file Relationship status: Not on file ??? Intimate partner violence Fear of current or ex partner: Not [...] lumbar region without myelopathy or radiculopathy 06/26/2019 Resolved Ambulatory Problems Diagnosis Date Noted ??? Lower respiratory infection 04/10/2018 ??? Mild intermittent asthma without complication 01/16/2019 No Additional Past Medical History History reviewed. No pertinent family history. No Known Allergies REVIEW OF SYSTEMS Review of Systems Constitutional: Negative for chills, diaphoresis, fatigue, fever and unexpected weight change. HENT: Negative for congestion, hearing loss, postnasal drip, sneezing, sore throat, tinnitus and trouble swallowing. Eyes: Positive for visual disturbance. The patient has macular degeneration and has an injection in her right eye every 3 months by her retina specialist. She still able to drive at night and has no other restrictions Respiratory: Negative for cough, shortness of breath and wheezing. Cardiovascular: Negative for chest pain, palpitations and leg swelling. Gastrointestinal: Negative for abdominal pain, anal bleeding, blood in stool, constipation, diarrhea, nausea and vomiting. Endocrine: Negative for polydipsia, polyphagia and polyuria. Genitourinary: Negative for dysuria, frequency, hematuria and urgency. Nocturia negative the patient occasionally wears a pad for urinary leakage. She did have a GILLIAN and 1 ovary removed at age 37 her benign disease Musculoskeletal: Positive for arthralgias. Negative for back pain, joint swelling and myalgias. 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 Her back is still stiff but least the pain is control of her Skin: Negative for rash. Allergic/Immunologic: Negative for environmental allergies and food allergies. Neurological: Negative for dizziness, tremors, syncope and headaches. Hematological: Negative for adenopathy. Does not bruise/bleed easily. Psychiatric/Behavioral: Negative for dysphoric mood and sleep disturbance. PHYSICAL EXAM Physical Exam Vitals signs and nursing note reviewed. Constitutional: Appearance: She is well-developed. Comments: Her weight was up few lb from last year her blood pressures okay HENT: Head: Normocephalic and atraumatic. Right Ear: [...] normal to inspection palpation bilaterally including the axilla. She has not any hormones. She is already had a hysterectomy so does not need any Pap smear Musculoskeletal: Normal range of motion. Comments: Stiff low back Skin: General: Skin is warm and dry. [...] 06/12/2019 BUNSER 21 06/12/2019 CO2 26 06/12/2019 ASSESSMENT AND PLAN Assessment/Plan Diagnoses and all orders for this visit: Medicare annual wellness visit, subsequent (Primary) The self assessment going detail. The home environment safe. The fall risk is minimal. The cognitive and depression screening were good. Speech hearing and swallowing okay. The nutritional status is fair she just needs to keep that weight down BMI is 30.5 vaccines are due for tetanus shot and shingles vaccine but otherwise up-to-date with flu pneumonia The patient is due for mammogram but that is been suspended because the gaming virus the same with bone density would be nice. She get that caught up later this summer Class 1 obesity due to excess calories with body mass index (BMI) of 30.0 to 30.9 in adult, unspecified whether serious comorbidity present Losing some weight is a good long-term goal for this lady she does walk for exercise and needs to increase her mileage and frequency and we talked about low carb low-fat diet Bilateral nonexudative age-related macular degeneration, unspecified stage Patient getting expert management of her macular degeneration and seems to have good preservation of vision right now with her current therapy Esophageal stricture For now her swallowing is okay and her reflux is well controlled with her current medicine Gastroesophageal reflux disease without esophagitis Stay on pantoprazole long-term Mixed hyperlipidemia - Comprehensive metabolic panel; Future - Lipid panel; Future The HDL was 57 the LDL was 101 triglycerides were 7 and so she is in great shape with her current statin therapy which is low-dose. She is going to keep up her walking and more effort at losing weight Vitamin D deficiency Vitamin-D level is 57 with 2000 units a day of supplementation let us keep that up Spondylosis of lumbar region without myelopathy or radiculopathy She goes to the pain clinic regularly and is maintaining her functional status. Weight loss will hanna big help her back pain long-term Future Appointments Date Time Provider Department Center 06/12/2020 9:00 AM [facility], LAB [facility] 06/26/2020 10:00 AM [...] dictated and transcribed by with assistance from [employer] Direct Software. Dip Filler variances may occur. Despite proofreading, typographical errors may occur. documented in this encounter Miscellaneous Notes * Addendum Note - Kinga Simmons - 06/26/2019 9:00 AM CDTAddended by: KINGA SIMMONS on: 12/06/2019 10:20 AM Modules accepted: Orders * Addendum Note - Lory Lester MT - 06/26/2019 9:00 AM CDTAddended by: LORY LESTER on: 06/12/2020 08:10 AM Modules accepted: Orders RER documented in this encounter Plan of Treatment Not on file documented as of this encounter Results * (ABNORMAL) Comprehensive metabolic panel (06/12/2020 8:15 AM SHIRRER) Sodium 142 135 - 145 mmol/L CERNER [...] (JULI) Blood specimen (specimen) 06/12/2020 8:15 AM SHIRRER 06/12/2020 8:32 AM SHIRRER us Korey Randolph MD LAB BLOOD ORDERABLES Fi nal Result [facility] (JULI) [address] [facility] Department [place] [address] * Lipid panel (06/12/2020 8:15 AM SHIRRER) Cholesterol 144 30 - 199 mg/dL CARYN [...] on 2017. HDL 49 >=40 mg/dL [facility] Grayson (JULI) Comment: Interpretive [...] 2017. Non-HDL Cholesterol 95 mg/dL [facility] TSANG (JUIL) Comment: Interpretive Data Ages < or = [...] 2017. Chol/HDL ratio 3 WILSON Nuno SHARAN (SOMERS) Blood specimen (specimen) 06/12/2020 8:15 AM SHIRRER 06/12/2020 8:32 AM SHIRRER us Korey Randolph MD LAB BLOOD ORDERABLES Fi nal Result [facility] SHARAN (SOMERS) [address] [facility] Department [place] [address] documented in this encounter Visit Diagnoses Diagnosis Medicare annual wellness visit, subsequent- Primary Class 1 obesity due to excess calories with body mass index (BMI) of 30.0 to 30.9 in adult, unspecified whether serious comorbidity present Bilateral nonexudative age-related macular degeneration, unspecified stage Esophageal stricture Stricture and stenosis of esophagus Gastroesophageal reflux disease without esophagitis Esophageal reflux Mixed hyperlipidemia Vitamin D deficiency Spondylosis of lumbar region without myelopathy or radiculopathy documented in this encounter Discontinued Medications Medication Sig Discontinue Reason Start Date End Da te PROAIR HFA 90 mcg/actuation inhaler Inhale 2 puffs every 4 (four) hours as needed for wheezing or shortness of breath 12/11/2018 06/26/2019 budesonide-formoterol (SYMBICORT) 160-4.5 mcg/actuation inhaler Inhale 2 puffs 2 (two) times a day Rinse mouth with water after use. Do not swallow. 06/26/2019 documented as of this encounter Care Teams Firefighting Equipment Specialist Relationship Specialty Start Date End Date Korey Randolph MD PCP - General Internal Medicine 05/23/17 documented as of this encounter
--- OUTSIDE RECORDS SUMMARY | 2024-04-07 05:39 | XMS_ITS | Encounter Summary ---
Author Organization [facility] Facility Care Team Providers Care Block Mason Name Role Phone Korey Randolph MD Primary Care Provider Encounter Details Date Type Department Care Team (Latest Contact Info) Description 01/24/2019 Travel Social History Tobacco Use Types Packs/Day Years Used Date Smoking Tobacco: Never Smokeless Tobacco: Never PHQ-2 Answer Date Recorded PHQ-2 Score 0 11/21/2018 Comments Unknown Sex and Gender Information Value Date Recorded Sex Assigned at Not on file Legal Sex Female 11:27 PM PERIANESTHESIA NURSE Gender Identity Female 08/18/2019 3:36 PM CDT Sexual Orientation Straight 08/18/2019 3: 35 PM CDT documented as of this encounter Plan of Treatment Not on file documented as of this encounter Visit Diagnoses Not on filedocumented in this encounter Care Teams Block Mason Relationship Specialty Start Date End Date Korey Randolph MD PCP - General Internal Medicine 05/23/17 documented as of this encounter
--- OUTSIDE RECORDS SUMMARY | 2024-04-07 05:39 | XMS_ITS | Encounter Summary ---
Author Organization [facility] Facility Care Team Providers Care Emergency Medcl Emt Name Role Phone Korey Randolph MD Primary Care Provider Encounter Details Date Type Department Care Team (Latest Contact Info) Description 06/20/2018 Travel Social History Tobacco Use Types Packs/Day Years Used Date Smoking Tobacco: Never Smokeless Tobacco: Never Comments Unknown Sex and Gender Information Value Date Recorded Sex Assigned at Not on file Legal Sex Female 11:27 PM BELL HOLE DIGGER Gender Identity Female 08/18/2019 3:36 PM CDT Sexual Orientation Straight 08/18/2019 3: 35 PM CDT documented as of this encounter Plan of Treatment Not on file documented as of this encounter Visit Diagnoses Not on filedocumented in this encounter Care Teams Emergency Medcl Emt Relationship Specialty Start Date End Date Korey Randolph MD PCP - General Internal Medicine 05/23/17 documented as of this encounter
--- OUTSIDE RECORDS SUMMARY | 2024-04-07 05:39 | XMS_ITS | Encounter Summary ---
Author Organization [facility] Facility Care Team Providers Care Building Maintenance Supervisor Name Role Phone Korey Randolph MD Primary Care Provider Encounter Details Date Type Department Care Team (Latest Contact Info) Description 12/04/2018 Travel Social History Tobacco Use Types Packs/Day Years Used Date Smoking Tobacco: Never Smokeless Tobacco: Never PHQ-2 Answer Date Recorded PHQ-2 Score 0 11/21/2018 Comments Unknown Sex and Gender Information Value Date Recorded Sex Assigned at Not on file Legal Sex Female 11:27 PM MANAGED CARE SPECIALIST Gender Identity Female 08/18/2019 3:36 PM CDT Sexual Orientation Straight 08/18/2019 3: 35 PM CDT documented as of this encounter Plan of Treatment Not on file documented as of this encounter Visit Diagnoses Not on filedocumented in this encounter Care Teams Building Maintenance Supervisor Relationship Specialty Start Date End Date Korey Randolph MD PCP - General Internal Medicine 05/23/17 documented as of this encounter
--- OUTSIDE RECORDS SUMMARY | 2024-04-07 05:39 | XMS_ITS | Encounter Summary ---
Author Organization [facility] Healthcare Address [address] [place] [address] Care Team Providers Care Extension Worker Name Role Phone Korey Randolph MD Primary Care Provider Reason for Referral * Diagnostic Imaging (Routine) - Closed Specialty Diagnoses / Procedures Referred By Contac t Referred To Contact Radiology Diagnoses LLQ pain Procedures CT Abdomen Pelvis WO Contrast Lorenzo Bennett NP Phone: tel: fax: [address] [phone] Referral ID Status Reason Start Date Expiration Date Visits Re quested Visits Authorized [id number] Closed 08/14/2019 02/22/2021 1 1 Reason for Visit * Diagnostic Imaging (Routine) - Closed Specialty Diagnoses / Procedures Referred By Contac t Referred To Contact Radiology Diagnoses LLQ pain Procedures CT Abdomen Pelvis WO Contrast Lorenzo Bennett NP Phone: tel: fax: [address] [phone] Referral ID Status Reason Start Date Expiration Date Visits Re quested Visits Authorized [id number] Closed 08/14/2019 02/22/2021 1 1 Encounter Details Date Type Department Care Team (Late st Contact Info) Description 08/14/2019 2:21 PM CDT - 08/14/2019 11:59 PM CDT Hospital Encounter [facility] [address] [place] [address] Korey Randolph MD [address] [place] [address] Lorenzo Bennett, DINKEY ENGINE FIRER/FIREMAN [address] [place] [address] LLQ pain Discharge Disposition: Discharge to home or self care Social History Tobacco Use Types Packs/Day Years Used Date Smoking Tobacco: Never Smokeless Tobacco: Never PHQ-2 Answer Date Recorded PHQ-2 Score 0 11/21/2018 Comments No Sex and Gender Information Value Date Recorded Sex Assigned at Not on file Legal Sex Female 11:27 PM ENTRY LEVEL MECHANICAL ENGINEER Gender Identity Female 08/18/2019 3:36 PM [...] (SINGULAIR) 10 mg tablet 07/24/2019 0 omega 8-wio-dyz-fish oil (FISH OIL) 60-90-500 mg capsule Take by mouth. [address] (PROTONIX) 40 mg EC tablet TAKE 1 TABLET(40 MG) BY MOUTH TWICE DAILY 90 tablet 3 06/10/2019 1 documented as of this encounter Discharge Disposition Disposition Code Departure Means Destination Discharge to home or self care documented in this encounter Miscellaneous Notes * Result Encounter Note - Lorenzo Bennett NP - 08/14/2019 3:55 PM CDT Spoke to brand on the phone regarding results of testing. Addendum listed under 08/13 OV note detailing findings and recommendations. documented in this encounter Plan of Treatment Not on file documented as of this encounter Procedures Procedure Name Priority Date/Time Associated Diagnosis Comments CT ABDOMEN PELVIS WO CONTRAST Schedule ОЛЬГА, Read ОЛЬГА (Appt Today, Awaiting Results) 08/14/2019 3:01 PM CDT LLQ pain documented in this encounter Results * CT Abdomen Pelvis WO Contrast (08/14/2019 [...] adenoma. Electronically signed by: Alvarado Kim M.D. Lorenzo Bennett DINKEY ENGINE FIRER/FIREMAN IMG CT PROCEDURES Final Resu lt documented in this encounter Visit Diagnoses Diagnosis LLQ pain Abdominal pain, left lower quadrant documented in this encounter Care Teams Extension Worker Relationship Specialty Start Date End Date Korey Randolph MD PCP - General Internal Medicine 05/23/17 documented as of this encounter
--- OUTSIDE RECORDS SUMMARY | 2024-04-07 05:39 | XMS_ITS | Encounter Summary ---
Author Organization [facility] Medical Group Address [address] [place] [address] Care Team Providers Care Process Machine Operator Name Role Phone Korey Randolph MD Primary Care Provider Encounter Details Date Type Department Care Team (Late st Contact Info) Description 07/16/2019 Telephone [facility] [address] [place] [address] Korey Randolph MD [address] [place] [address] [address] [place] [address] Social History Tobacco Use Types Packs/Day Years Used Date Smoking Tobacco: Never Smokeless Tobacco: Never PHQ-2 Answer Date Recorded PHQ-2 Score 0 11/21/2018 Comments No Sex and Gender Information Value Date Recorded Sex Assigned at Not on file Legal Sex Female 11:27 PM HOMOGENIZER OPERATOR Gender Identity Female 08/18/2019 3:36 PM CDT Sexual Orientation Straight 08/18/2019 3: 35 PM CDT COVID-19 Exposure Response Date Recorded In the last month, have you been in contact with someone who was confirmed or suspected to have Coronavirus / COVID-19? No / Unsure 06/26/2019 8:58 AM CDT documented as of this encounter Miscellaneous Notes * Telephone Encounter - Elza Kirby - 07/16/2019 1:00 PM CDT Order put in epic and mailed to the pt since she is going to have done at [facility] for 2020 * Telephone Encounter - Earnestine Dunlap MA - 07/16/2019 12:48 PM CDT Per paper [facility] mammography ultrasound report on 07/15/19 written orders form to tellthe patient the good news. No evidence of malignancy in RT breast routine yearly screening mammogram and regular clinical breast exam are recommended. Patient aware Sent to referrals * Telephone Encounter - Earnestine Dunlap MA - 07/16/2019 8:31 AM CDT Per paper [facility] mammography report on 07/08/19 written orders from to make sure they got the extra views and possible breast ultrasound that was recommended by them. Patient states she had both of these done yesterday at [facility]. documented in this encounter Plan of Treatment Not on file documented as of this encounter Visit Diagnoses Not on filedocumented in this encounter Care Teams Process Machine Operator Relationship Specialty Start Date End Date Korey Randolph MD PCP - General Internal Medicine 05/23/17 documented as of this encounter
--- OUTSIDE RECORDS SUMMARY | 2024-04-07 05:39 | XMS_ITS | Encounter Summary ---
Author Organization [facility] Medical Group Address [address] [place] [address] Care Team Providers Care Taxi Proprietor Name Role Phone Korey Randolph MD Primary Care Provider Encounter Details Date Type Department Care Team (Late st Contact Info) Description 07/08/2019 Telephone [facility] [address] [place] [address] Henny Zuniga MA Social History Tobacco Use Types Packs/Day Years Used Date Smoking Tobacco: Never Smokeless Tobacco: Never PHQ-2 Answer Date Recorded PHQ-2 Score 0 11/21/2018 Comments No Sex and Gender Information Value Date Recorded Sex Assigned at Not on file Legal Sex Female 11:27 PM ENAMEL DRIER Gender Identity Female 08/18/2019 3:36 PM CDT Sexual Orientation Straight 08/18/2019 3: 35 PM CDT COVID-19 Exposure Response Date Recorded In the last month, have you been in contact with someone who was confirmed or suspected to have Coronavirus / COVID-19? No / Unsure 06/26/2019 8:58 AM CDT documented as of this encounter Miscellaneous Notes * Telephone Encounter - Kaci Collier MA - 07/09/2019 11:57 AM CDT Orders have now been cosigned and faxed to [facility]. Called patient and provided her the number for their scheduling dept. Pt aware to call them to set up an appointment. * Telephone Encounter - Kaci Collier MA - 07/09/2019 10:09 AM CDT Orders placed. Once cosigns them they will be faxed to [place]. * Telephone Encounter - Henny Zuniga MA - 07/08/2019 4:01 PM CDT Per patient needs a diagnostic mammogram and US of R breast d/t suspicious area on R breast mammogram. Hand written on paper report. Report given to referrals. Pt aware and would like this order to go to [facility]. documented in this encounter Plan of Treatment Not on file documented as of this encounter Visit Diagnoses Not on filedocumented in this encounter Care Teams Taxi Proprietor Relationship Specialty Start Date End Date Korey Randolph MD PCP - General Internal Medicine 05/23/17 documented as of this encounter
--- OUTSIDE RECORDS SUMMARY | 2024-04-07 05:39 | XMS_ITS | Encounter Summary ---
Author Organization [facility] Address [address] [place] [address] Care Team Providers Care Strip Cleaner Name Role Phone Korey Randolph MD Primary Care Provider Encounter Details Date Type Department Care Team (Late st Contact Info) Description 07/22/2019 Telephone [facility] [address] [facility] [address] [place] [address] Korey Randolph MD [address] [place] [address] [address] [place] [address] Social History Tobacco Use Types Packs/Day Years Used Date Smoking Tobacco: Never Smokeless Tobacco: Never PHQ-2 Answer Date Recorded PHQ-2 Score 0 11/21/2018 Comments No Sex and Gender Information Value Date Recorded Sex Assigned at Not on file 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 No / Unsure 06/26/2019 8:58 AM CDT documented as of this encounter Miscellaneous Notes * Telephone Encounter - Elza Kirby - 07/22/2019 9:47 AM CDT This may be a duplicate. On 07-17-19 I mailed an order to this pt for 2020 mammogram at [facility] from the pt ultrasound of the breast from 07-15-19 and phone message from 07-16-19 * Telephone Encounter - Earnestine Dunlap MA - 07/22/2019 7:53 AM CDT Per paper [facility] dignostic mammogram on 07/15/19. Written orders from to tell the patient the good news no evidence for malignancy in the RT breast. Benign findings. Routine yearly screening mammogram and regular clinical breast exam recommended. Patient aware Sent to referrals documented in this encounter Plan of Treatment Not on file documented as of this encounter Visit Diagnoses Not on filedocumented in this encounter Care Teams Strip Cleaner Relationship Specialty Start Date End Date Korey Randolph MD PCP - General Internal Medicine 05/23/17 documented as of this encounter
--- OUTSIDE RECORDS SUMMARY | 2024-04-07 05:39 | XMS_ITS | Encounter Summary ---
Author Organization [facility] Address [address] [place] [address] Care Team Providers Care Roll Tester Name Role Phone Korey Randolph MD Primary Care Provider Reason for Visit * Reason Comments Cough deep dry cough x3 da ys Shortness of Breath sinus drainage Earache bilateral ear pain Fatigue Encounter Details Date Type Department Care Team (Late st Contact Info) Description 08/30/2018 11:00 AM CDT Office Visit [facility] [address] [place] [address] [address] [place] [address] Gisella Rollins, [address] [place] [address] Upper respiratory tract infection, unspecified type (Primary Dx); BMI 29.0-29.9,adult Social History Tobacco Use Types Packs/Day Years Used Date Smoking Tobacco: Never Smokeless Tobacco: Never Tobacco Cessation:Counseling Given: No Comments Unknown Sex and Gender Information Value Date Recorded Sex Assigned at Not on file 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 Gender Identity Female 08/18/2019 3:36 PM CDT Sexual Orientation Straight 08/18/2019 3: 35 PM CDT documented as of this encounter Last Filed Vital Signs Vital Sign Reading Time Taken Comments Blood Pressure 106/68 08/30/2018 10:58 AM CDT Pulse 86 08/30/2018 10:58 AM CDT Temperature 36.7 ??C (98.1 ??F) 08/30/2018 10:58 AM C DT Respiratory Rate 18 08/30/2018 10:58 AM CDT Oxygen Saturation 96% 08/30/2018 10:58 AM CDT Inhaled Oxygen Concentration - - Weight 63.5 kg (140 lb) 08/30/2018 10:58 AM CDT Height 147.3 cm (4' 10 ) 08/30/2018 10:58 AM CDT Body Mass Index 29.26 08/30/2018 10:58 AM CDT documented in this encounter Patient Instructions * Patient Instructions* Gisella Rollins NP - 08/30/2018 11:00 AM CDT Debrox Drops documented in this encounter Ordered Prescriptions Prescription Sig Dispense Quantity Refills Last Filled Start Date End Date albuterol HFA (PROAIR HFA) 90 mcg/actuation inhaler Inhale 2 puffs every 4 (four) hours as needed for wheezing or shortness of breath 8.5 g 08/30/2018 9 azithromycin (ZITHROMAX Z-NATALIA) 250 mg tabletIndications: Upper Respiratory/HEENT Infection Take 2 tablets the first day, then 1 tablet daily for 4 days. 5 tablet 08/30/2018 9 methylPREDNISolone (MEDROL, NAATLIA,) 4 mg DosepackIndication s:bronchitis follow package directions 1 packet 08/30/2018 9 documented in this encounter Progress Notes * Gisella Rollins NP - 08/30/2018 11:00 AM CDT Images from the original note were not included. [facility] DATE OF VISIT: 08/30/2018 DATE: 1940 Vitals: 08/30/18 1058 BP: 106/68 BP Location: Left arm Patient Position: Sitting Pulse: 86 Resp: 18 Temp: 36.7 ??C (98.1 ??F) TempSrc: Oral SpO2: 96% Weight: 63.5 kg (140 lb) Height: 147.3 cm (4' 10 ) Body mass index is 29.26 kg/m??. CHIEF COMPLAINT Chief Complaint Patient presents with ??? Cough deep dry cough x3 days ??? Shortness of Breath ??? sinus drainage ??? Earache bilateral ear pain ??? Fatigue HPI Meghana Dueñas is a 78 y.o. female presents today with c/o of cough, shortness of breath , sinus drainage, earache and fatigue for the last week. Cough is dry and persistent. Denies any headache. She has tried nyquil, dayquil, and zycam with minimal relief. Denies any flonase use. Denies any feverat this time. She has had chills as well. MEDICATIONS Current Outpatient Medications: ??? aspirin 81 mg tablet, Take 81 mg by mouth daily., Disp: , Rfl: ??? atorvastatin (LIPITOR) 10 mg tablet, Take 10 mg by mouth daily., Disp: , Rfl: ??? cholecalciferol (VITAMIN D-3) 1,000 unit capsule, Take by mouth., Disp: , Rfl: ??? cyanocobalamin, vitamin B-12, (CYANOCOBALAMIN,VIT B-12,,BULK,) powder, Take by mouth., Disp: , Rfl: ??? multivitamin,tx-minerals (VITAMINS AND MINERALS) tablet, Take by mouth., Disp: , Rfl: ??? mupirocin (BACTROBAN) 2 % ointment, Apply topically 3 (three) times a day. To nasal passage, Disp: 22 g, Rfl: 3 ??? omega 9-avs-gwm-fish oil (FISH OIL) 60-90-500 mg capsule, Take by mouth., Disp: , Rfl: ??? pantoprazole DR (PROTONIX) 40 mg EC tablet, Take 1 tablet (40 mg total) by mouth 2 (two) times a day, Disp: 90 tablet, Rfl: 3 ??? PROAIR HFA 90 mcg/actuation inhaler, INHALE 2 PUFFS BY MOUTH EVERY 4 HOURS NEEDED FOR WHEEZING OR SHORTNESS OF BREATH, Disp: 8.5 g, Rfl: 0 ??? vitamin E 400 unit capsule, Take 400 Units by mouth daily., Disp: , Rfl: ??? albuterol HFA (PROAIR HFA) 90 mcg/actuation inhaler, Inhale 2 puffs every 4 (four) hours as needed for wheezing or shortness of breath, Disp: 8.5 g, Rfl: 0 ??? azithromycin (ZITHROMAX Z-NATALIA) 250 mg tablet, Take 2 tablets the first day, then 1 tablet dailyfor 4 days., Disp: 5 tablet, Rfl: 0 ??? methylPREDNISolone (MEDROL, NATALIA,) 4 mg Dosepack, follow package directions, Disp: 1 packet, Rfl: 0 ALLERGIES Allergies Allergen Reactions ??? Jzeyymb-Ryy-Ama Reductase Inhibitors REVIEW OF SYSTEMS Review of Systems Constitutional: Positive for chills and fatigue. HENT: Positive for congestion, ear pain, postnasal drip, rhinorrhea, sinus pressure, sinus pain andvoice change (hoarsness). Negative for sneezing and sore throat. Eyes: Negative for pain and itching. Respiratory: Positive for cough (persistant and dry). Negative for chest tightness, shortness of breath and wheezing. Cardiovascular: Negative for chest pain. Gastrointestinal: Negative for constipation, diarrhea, nausea and vomiting. Genitourinary: Negative for dysuria, flank pain, frequency and hematuria. Musculoskeletal: Negative for joint swelling and myalgias. Skin: Negative for color change and pallor. Neurological: Negative for dizziness, weakness, light-headedness and headaches. All other systems reviewed and are negative. PHYSICAL EXAM Physical Exam Constitutional: She is oriented to person, place, and time. She appears well- developed and well-nourished. No distress. HENT: Head: Normocephalic. Right Ear: Tympanic membrane is not erythematous and not bulging. Decreased hearing is noted. Left Ear: Hearing normal. Tympanic membrane is not erythematous and not bulging. Nose: Mucosal edema and rhinorrhea present. Right sinus exhibits no maxillary sinus tenderness and no frontal sinus tenderness. Left sinus exhibits no maxillary sinus tenderness and no frontal sinus tenderness. Mouth/Throat: Posterior oropharyngeal erythema present. Bilaterally impacted cerumen Eyes: Pupils are equal, round, and reactive to light. Neck: Neck supple. Cardiovascular: Normal rate, regular rhythm and normal heart sounds. Pulmonary/Chest: Effort normal. She has wheezes (throughout). Neurological: She is alert and oriented to person, place, and time. Skin: Skin is warm and dry. Capillary refill takes less than 2 seconds. Psychiatric: She has a normal mood and affect. Nursing note and vitals reviewed. LABS AND OTHER DIAGNOSTIC TESTS Lab Results Component Value Date HGB 13.5 06/25/2015 HCT 40.0 06/25/2015 LABPLAT 173 06/25/2015 CHOL 183 06/06/2018 TRIG 64 06/06/2018 HDL 61 06/06/2018 ALT 31 06/06/2018 AST 24 06/06/2018 SODIUM 144 06/06/2018 POTASSIUM 4.2 06/06/2018 CHLORIDE 104 06/06/2018 CREATININE 0.70 06/06/2018 BUNSER 17 06/06/2018 CO2 28 06/06/2018 ASSESSMENT/PLAN/RECOMMENDATIONS Assessment/Plan Diagnoses and all orders for this visit: Upper respiratory tract infection, unspecified type (Primary) Recommend fluids, rest, humidification if needed. She was instructed to call back if symptoms do not improved in a week, or if worsening ones arise. Education provided. Begin course of azithromycin as well as Medrol Dosepak. Increase fluids will help to thin the secretions.Over the counter meds/cold drugs do not cure this problem but can provide help in tolerating the illness.. Some find the decongestant meds helpful but many find them causing more complaints thenthey are worth. Cough meds come into play when you cannot control the cough. This comes into play especially at night when you are trying to sleep. Short term use of nasal decongestants are helpful (Afrin), especially at night. Using them at a full dose for more then 3 days is highly associated with your nasal passage relying on them, when this happens the nasal membranes will dilate the blood vessels within the nasal wall and weep secretions that plug up your nose. When this occurs it will take several days to return to normal. There is a place for nasal steroid during a cold as a way to help limit secretions and not lead to a nasal addition. Nasal dryness and subsequent bleeding then can occur at which time you will need to reduce or stop there use for the near future. BMI 29.0-29.9,adult Recommended patient to continue to increase heart healthy diet with adequate fruits, vegetables, and plenty of water along with mild-moderate daily exercise as tolerated. Other orders - methylPREDNISolone (MEDROL, NATALIA,) 4 mg Dosepack; follow package directions - azithromycin (ZITHROMAX Z-NATALIA) 250 mg tablet; Take 2 tablets the first day, then 1 tablet daily for 4 days. - albuterol HFA (PROAIR HFA) 90 mcg/actuation inhaler; Inhale 2 puffs every 4 (four) hours as needed for wheezing or shortness of breath Future Appointments Date Time Provider Department Center 06/12/2019 9:00 AM [facility] 06/26/2019 9:00 AM Korey Randolph MD [facility] [...] dictated and transcribed by with assistance from [employer].?? Assistant Women'S Rowing Coach variances may occur. Despite proofreading, typographical errors may occur. Cosigned by Korey Randolph MD at 09/03/2018 6:08 PM CDT documented in this encounter Plan of Treatment Not on file documented as of this encounter Visit Diagnoses Diagnosis Upper respiratory tract infection, unspecified type- Primary BMI 29.0-29.9,adult documented in this encounter Care Teams Roll Tester Relationship Specialty Start Date End Date Korey Randolph MD PCP - General Internal Medicine 05/23/17 documented as of this encounter
--- OUTSIDE RECORDS SUMMARY | 2024-04-07 05:39 | XMS_ITS | Encounter Summary ---
Author Organization [facility] Address [address] [place] [address] Care Team Providers Care Trial Mgr Name Role Phone Korey Randolph MD Primary Care Provider Encounter Details Date Type Department Care Team (Late st Contact Info) Description 07/16/2019 Orders Only [facility] [address] [address] [place] [address] Korey Randolph MD [address] [place] [address] [address] [place] [address] Visit for screening mammogram (Primary Dx) Social History Tobacco Use Types Packs/Day Years Used Date Smoking Tobacco: Never Smokeless Tobacco: Never PHQ-2 Answer Date Recorded PHQ-2 Score 0 11/21/2018 Comments No Sex and Gender Information Value Date Recorded Sex Assigned at Not on file 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
--- OUTSIDE RECORDS SUMMARY | 2024-04-07 05:39 | XMS_ITS | Encounter Summary ---
Author Organization [facility] Address [address] [place] [address] Care Team Providers Care Bell Ringer Name Role Phone Korey Randolph MD Primary Care Provider Encounter Details Date Type Department Care Team (Late st Contact Info) Description 08/30/2018 Telephone [facility] [address] [facility] [address] [place] [address] Liza Pineda MA Social History Tobacco Use Types Packs/Day Years Used Date Smoking Tobacco: Never Smokeless Tobacco: Never Comments Unknown Sex and Gender Information Value Date Recorded Sex Assigned at Not on file 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 * Telephone Encounter - Gisella Rollins NP - 08/30/2018 1:10 PM CDT Please update quantity 6. Thank you! * Telephone Encounter - Liza Pineda MA - 08/30/2018 1:08 PM CDT Fax from pharmacy regarding azithromycin 250 mg stating quantity does not match directions. Please advise documented in this encounter Plan of Treatment Not on file documented as of this encounter Visit Diagnoses Not on filedocumented in this encounter Care Teams Bell Ringer Relationship Specialty Start Date End Date Korey Randolph MD PCP - General Internal Medicine 05/23/17 documented as of this encounter
--- OUTSIDE RECORDS SUMMARY | 2024-04-07 05:39 | XMS_ITS | Encounter Summary ---
Author Organization [facility] Address [address] [place] [address] Care Team Providers Care Wrister Name Role Phone Korey Randolph MD Primary Care Provider Reason for Visit * Reason Comments Follow-up Asthma Encounter Details Date Type Department Care Team (Late st Contact Info) Description 01/24/2019 2:15 PM CDT Office Visit [facility] [address] [facility] [address] [place] [address] Dayton Cast PA [address] [place] [address] [address] [place] [address] Mild intermittent asthma with acute exacerbation (Primary Dx); BMI 29.0-29.9,adult; Gastroesophageal reflux disease without esophagitis Social History Tobacco Use Types Packs/Day Years Used Date Smoking Tobacco: Never Smokeless Tobacco: Never PHQ-2 Answer Date Recorded PHQ-2 Score 0 11/21/2018 Comments Unknown Sex and Gender Information Value Date Recorded Sex Assigned at Not on file 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 Gender Identity Female 08/18/2019 3:36 PM CDT Sexual Orientation Straight 08/18/2019 3: 35 PM CDT documented as of this encounter Last Filed Vital Signs Vital Sign Reading Time Taken Comments Blood Pressure 119/74 01/24/2019 2:09 PM CDT Pulse 76 01/24/2019 2:09 PM CDT Temperature - - Respiratory Rate 18 01/24/2019 2:09 PM CDT Oxygen Saturation 93% 01/24/2019 2:09 PM CDT Inhaled Oxygen Concentration - - Weight 64.4 kg (142 lb) 01/24/2019 2:09 PM CDT Height 147.3 cm (4' 10 ) 01/24/2019 2:09 PM CDT Body Mass Index 29.68 01/24/2019 2:09 PM CDT documented in this encounter Ordered Prescriptions Prescription Sig Dispense Quantity Refills Last Filled Start Date End Date fluticasone propionate (FLONASE) 50 mcg/actuation nasal spray Administer 2 sprays into each nostril daily 16 g 11 01/24/2019 0 documented in this encounter Progress Notes * Dayton Cast PA - 01/24/2019 2:15 PM CDT Subjective/Objective Patient ID: Meghana Dueñas is a 78 y.o. female. Chief Complaint Follow-up and Asthma HPI Patient here for follow-up of asthma exac. For which she was seen in Dec and last on 01/16. She's had doxycycline, medrol pack, proAir and last time was provided augmentin, Prednisone, and is on singular. She reports today she is finally feeing better. She is takign the s ymbicort in the morning only , as takign it at bedtime keeps her awake. Singular has helped. No probs from the augmentin including diarrhea. She is taking a probiotic. The cough is still present but improved. No chest tightness. Occ hoarseness. Inquires about seeing an health care law specialist. Review of Systems Constitutional: Negative for chills, fatigue and fever. HENT: Negative for ear pain, mouth sores, postnasal drip, rhinorrhea, sinus pressure, sore throat and trouble swallowing. Voice change: occ hoarsenss. Respiratory: Positive for cough. Negative for choking, shortness of breath and wheezing. Cardiovascular: Negative for chest pain. Gastrointestinal: Negative for abdominal pain (no GERD sx), diarrhea and nausea. Vitals: 01/24/19 1409 BP: 119/74 BP Location: Left arm Patient Position: Sitting Pulse: 76 Resp: 18 SpO2: 93% Weight: 64.4 kg (142 lb) Height: 147.3 cm (4' 10 ) Physical Exam Constitutional: General: She is not in acute distress. Appearance: She is well-developed. Neck: Musculoskeletal: Normal range of motion and neck supple. Thyroid: No thyromegaly. Cardiovascular: Rate and Rhythm: Normal rate and regular rhythm. Heart sounds: Normal heart sounds. No murmur (no edema). Pulmonary: Effort: Pulmonary effort is normal. No respiratory distress. Breath sounds: Normal breath sounds. No wheezing or rales. Comments: Loose cough but improved and now lungs CTA Lymphadenopathy: Cervical: No cervical adenopathy. Assessment/Plan Diagnoses and all orders for this visit: Mild intermittent asthma with acute exacerbation (Primary) Comments: Improving and can tolerate symbicort daily, will contine. And has proAir, cont singular. will referto health care law specialist as requested. BMI 29.0-29.9,adult Gastroesophageal reflux disease without esophagitis Comments: stable on protonix w/ no current c/o. Other orders - Flu Vaccine High Dose Tri PF 65y+ IM - Fluzone - fluticasone propionate (FLONASE) 50 mcg/actuation nasal spray; Administer 2 sprays into each nostril daily Side effects, risks, interactions reviewed with patient. Indications for testing discussed. Any further problems to contact us. She was told what to look out for and verbalized understanding. The patient was given the opportunity to have all questions answered today and was in agreement with the plan of care. Cosigned by Korey Randolph MD at 01/24/2019 5:56 PM CDT documented in this encounter Plan of Treatment Not on file documented as of this encounter Visit Diagnoses Diagnosis Mild intermittent asthma with acute exacerbation- Primary BMI 29.0-29.9,adult Gastroesophageal reflux disease without esophagitis Esophageal reflux documented in this encounter Discontinued Medications Medication Sig Discontinue Reason Start Date End Da te predniSONE (DELTASONE) 20 mg tablet Take 3 tabs daily for 3 d, then 2 for 2d, then 1 for 1 d 01/16/2019 01/24/2019 documented as of this encounter Historical Medications * This list may reflect changes made after this encounter. budesonide-formot peter (SYMBICORT) 160-4.5 mcg/actuation inhaler Inhale 2 puffs 2 (two) times a day Rinse mouth with water after use. Do not swallow. 06/26/2019 added in this encounter Orders Immunization/Injection Count Last Ordered Date First Ordered Date FLU VACCINE HD TRI PF 65Y+ IM 1 01/24/2019 documented in this encounter Care Teams Wrister Relationship Specialty Start Date End Date Korey Randolph MD PCP - General Internal Medicine 05/23/17 documented as of this encounter
--- OUTSIDE RECORDS SUMMARY | 2024-04-07 05:39 | XMS_ITS | Encounter Summary ---
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
--- OUTSIDE RECORDS SUMMARY | 2024-04-07 05:39 | XMS_ITS | Encounter Summary ---
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
--- OUTSIDE RECORDS SUMMARY | 2024-04-07 05:39 | XMS_ITS | Encounter Summary ---
Author Organization [facility] Address [address] [place] [address] Care Team Providers Care Information Assistant Name Role Phone Korey Randolph MD Primary Care Provider Reason for Referral * Procedure (Routine) - Closed Specialty Diagnoses / Procedures Referred By Contjayna siegel Referred To Contact Diagnoses Acute bronchitis, unspecified organism Procedures Office Spirometry without Bronchodilator Dayton Cast PA Phone: tel: fax: [facility] Referral ID Status Reason Start Date Expiration Date Visits Re quested Visits Authorized [id number] Closed 12/11/2018 06/21/2020 1 1 Reason for Visit * Reason Comments Follow-up acute bronchitis Encounter Details Date Type Department Care Team (Late st Contact Info) Description 12/11/2018 3:00 PM CDT Office Visit [facility] [address] [facility] [address] [place] [address] Dayton Cast PA [address] [place] [address] [address] [place] [address] Mild intermittent asthma with acute exacerbation (Primary Dx); Acute bronchitis, unspecified organism; BMI 29.0-29.9,adult; Gastroesophageal reflux disease without esophagitis Social History Tobacco Use Types Packs/Day Years Used Date Smoking Tobacco: Never Smokeless Tobacco: Never PHQ-2 Answer Date Recorded PHQ-2 Score 0 11/21/2018 Comments Unknown Sex and Gender Information Value Date Recorded Sex Assigned at Not on file 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 Sex 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 Gender Identity Female 08/18/2019 3:36 PM CDT Sexual Orientation Straight 08/18/2019 3: 35 PM CDT documented as of this encounter Last Filed Vital Signs Vital Sign Reading Time Taken Comments Blood Pressure 92/60 12/11/2018 2:33 PM CDT Pulse 74 12/11/2018 2:33 PM CDT Temperature - - Respiratory Rate 18 12/11/2018 2:33 PM CDT Oxygen Saturation - - Inhaled Oxygen Concentration - - Weight 64 kg (141 lb) 12/11/2018 2:33 PM CDT Height 147.3 cm (4' 10 ) 12/11/2018 2:33 PM CDT Body Mass Index 29.47 12/11/2018 2:33 PM CDT documented in this encounter Ordered Prescriptions Prescription Sig Dispense Quantity Refills Last Filled Start Date End Date montelukast (SINGULAIR) 10 mg tablet Take 1 tablet (10 mg total) by mouth nightly 30 tablet 12/11/2018 0 budesonide-formote rol (SYMBICORT) 160-4.5 mcg/actuation inhaler Inhale 2 puffs 2 (two) times a day Rinse mouth with water after use to reduce aftertaste and incidence of candidiasis. Do not swallow. 1 Inhaler 12/11/2018 9 PROAIR HFA 90 mcg/actuation inhaler Inhale 2 puffs every 4 (four) hours as needed for wheezing or shortness of breath 8.5 g 11 12/11/2018 0 documented in this encounter Progress Notes * Dayton Cast PA - 12/11/2018 3:00 PM CDT Subjective/Objective Patient ID: Meghana Dueñas is a 78 y.o. female. Chief Complaint Follow-up (acute bronchitis) HPI Pt here for FU on acute bronchitis, poss asthma. Started on doxy, medrol pack, plus her ProAir. She's had a few episodes of similar in the past year or so. She is still hoarse,a nd feels like a knot in her throat, tight in chest. No CP. Her upper back is sore from cough. She is still coughing, but it is non prod, occ loose. She still reports SOB, although not as bad as last week. And no wheezing. The proAir does help when she takes it. She endorses ccc nasal itching, occ clear rhinorrhea. Min sneezing. [place], etc. She denies any sig side effects or issues from the meds. No lightheadedness, dizziness. Never smoker. Review of Systems Constitutional: Negative for chills, fatigue and fever. HENT: Positive for rhinorrhea (clear, minimal), sneezing (minimal) and voice change (hoarse). Negative for ear pain, sore throat and trouble swallowing. Respiratory: Positive for cough, chest tightness and shortness of breath. Negative for choking and wheezing. Cardiovascular: Negative for chest pain, palpitations and leg swelling. Gastrointestinal: No indigestion. H/o stricture but no current c/o,no trouble swallowing, choking. Neurological: Negative for dizziness and light-headedness. Vitals: 12/11/18 1433 BP: 92/60 BP Location: Left arm Patient Position: Sitting Pulse: 74 Resp: 18 Weight: 64 kg (141 lb) Height: 147.3 cm (4' 10 ) Physical Exam Constitutional: She appears well-developed and well-nourished. No distress (pleasant , appears younger than stated age). HENT: Right Ear: External ear normal. Left Ear: External ear normal. Mouth/Throat: Oropharynx is clear and moist. No oropharyngeal exudate (TMs normal, nose and throat clear). Neck: Normal range of motion. Neck supple. No thyromegaly present. Cardiovascular: Normal rate, regular rhythm and normal heart sounds. No murmur (no edema) heard. Pulmonary/Chest: Effort normal and breath sounds normal. No respiratory distress (decreased BS and tight, but no more wheezing). She has no wheezes. She has no rales. Lymphadenopathy: She has no cervical adenopathy. Valentino today: FVC 92 and FEV 1 93. Reviewed CXR from Apr 2018: IMPRESSION: 1. No active disease seen. 2. No significant change compared to 06/25/2015. Assessment/Plan Diagnoses and all orders for this visit: Mild intermittent asthma with acute exacerbation (Primary) Comments: Mild improvement. Will Cont proAir and complete atb course. done w/ steroids. Will add singular andsymbicort, FU 3-4 weeks for reassessment Acute bronchitis, unspecified organism - Office Spirometry without Bronchodilator BMI 29.0-29.9,adult Gastroesophageal reflux disease without esophagitis Comments: No current c/o, on PPI Other orders - PROAIR HFA 90 mcg/actuation inhaler; Inhale 2 puffs every 4 (four) hours as needed for wheezing or shortness of breath - budesonide-formoterol (SYMBICORT) 160-4.5 mcg/actuation inhaler; Inhale 2 puffs 2 (two) times a day Rinse mouth with water after use to reduce aftertaste and incidence of candidiasis. Do not swallow. - montelukast (SINGULAIR) 10 mg tablet; Take 1 tablet (10 mg total) by mouth nightly Side effects, risks, interactions reviewed with patient. Indications for testing discussed. Any further problems to contact us. She was told what to look out for and verbalized understanding. The patient was given the opportunity to have all questions answered today and was in agreement with the plan of care. Cosigned by Korey Randolph MD at 12/25/2018 6:14 PM CDT documented in this encounter Plan of Treatment Not on file documented as of this encounter Procedures Procedure Name Priority Date/Time Associated Diagnosis Comments OFFICE SPIROMETRY WITHOUT BRONCHODILATOR Routine 12/11/2018 Acute bronchitis, unspecified organism documented in this encounter Results * Office Spirometry without Bronchodilator (12/11/2018) [facility] FISCHER [facility]/BEDSIDE ORDER MICKY Final Result documented in this encounter Visit Diagnoses Diagnosis Mild intermittent asthma with acute exacerbation- Primary Acute bronchitis, unspecified organism BMI 29.0-29.9,adult Gastroesophageal reflux disease without esophagitis Esophageal reflux documented in this encounter Discontinued Medications Medication Sig Discontinue Reason Start Date End Da te methylPREDNISolone (MEDROL, NATALIA,) 4 mg Dosepack follow package directions 12/04/2018 12/11/2018 PROAIR HFA 90 mcg/actuation inhaler INHALE 2 PUFFS BY MOUTH EVERY 4 HOURS NEEDED FOR WHEEZING OR SHORTNESS OF BREATH Reorder 09/12/2018 12/11/2018 documented as of this encounter Care Teams Information Assistant Relationship Specialty Start Date End Date Korey Randolph MD PCP - General Internal Medicine 05/23/17 documented as of this encounter
--- OUTSIDE RECORDS SUMMARY | 2024-04-07 05:39 | XMS_ITS | Encounter Summary ---
Author Organization [facility] Address [address] [place] [address] Care Team Providers Care Tea Tree Farm Worker Name Role Phone Korey Randolph MD Primary Care Provider Reason for Referral * Diagnostic Imaging (Routine) - Closed Specialty Diagnoses / Procedures Referred By Contac t Referred To Contact Procedures US Breast Right Limited [facility] [address] [place] [address] Phone: tel: fax: Referral ID Status Reason Start Date Expiration Date Visits Re quested Visits Authorized [id number] Closed 07/18/2019 01/26/2021 1 1 Encounter Details Date Type Department Care Team (Late st Contact Info) Description 07/15/2019 Orders Only [facility] Information Management [address] [place] [address] Korey Randolph MD [address] [place] [address] CARINA DAVIS [id number] Social History Tobacco Use Types Packs/Day Years Used Date Smoking Tobacco: Never Smokeless Tobacco: Never PHQ-2 Answer Date Recorded PHQ-2 Score 0 11/21/2018 Comments No Sex and Gender Information Value Date Recorded Sex Assigned at Not on file 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 Sex 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 Gender Identity Female 08/18/2019 3:36 PM [...] Name Priority Date/Time Associated Diagnosis Comments US BREAST RIGHT LIMITED Schedule Routine , Read Routine (OP Routine) 07/15/2019 documented in this encounter Results * US Breast Right Limited (07/15/2019) Anatomical Region Laterality Modality Breast Right Mammography us Historical Provider MD DIAZ MAMMO PROCEDURES Mireya l Result documented in this encounter Visit Diagnoses Not on filedocumented in this encounter Care Teams Tea Tree Farm Worker Relationship Specialty Start Date End Date Korey Randolph MD PCP - General Internal Medicine 05/23/17 documented as of this encounter
--- OUTSIDE RECORDS SUMMARY | 2024-04-07 05:39 | XMS_ITS | Encounter Summary ---
Author Organization [facility] Care Team Providers Care Bar Back Name Role Phone Korey Randolph MD Primary Care Provider Encounter Details Date Type Department Care Team (Latest Contact Info) Description 01/16/2019 Travel Social History Tobacco Use Types Packs/Day Years Used Date Smoking Tobacco: Never Smokeless Tobacco: Never PHQ-2 Answer Date Recorded PHQ-2 Score 0 11/21/2018 Comments Unknown Sex and Gender Information Value Date Recorded Sex Assigned at Not on file Legal Sex Female 11:27 PM SUEDE CLEANER Gender Identity Female 08/18/2019 3:36 PM CDT Sexual Orientation Straight 08/18/2019 3: 35 PM CDT documented as of this encounter Plan of Treatment Not on file documented as of this encounter Visit Diagnoses Not on filedocumented in this encounter Care Teams Bar Back Relationship Specialty Start Date End Date Korey Randolph MD PCP - General Internal Medicine 05/23/17 documented as of this encounter
--- OUTSIDE RECORDS SUMMARY | 2024-04-07 05:39 | XMS_ITS | Encounter Summary ---
Author Organization [facility] Address [address] [place] [address] Care Team Providers Care Local Company Refrigerated Truck Driver Name Role Phone Korey Randolph MD Primary Care Provider Encounter Details Date Type Department Care Team (Late st Contact Info) Description 01/24/2019 Orders Only [facility] [address] [place] [address] Dayton Cast PA [address] [place] [address] [address] [place] [address] Allergic state, sequela (Primary Dx); Mild intermittent asthma without complication Social History Tobacco Use Types Packs/Day Years Used Date Smoking Tobacco: Never Smokeless Tobacco: Never PHQ-2 Answer Date Recorded PHQ-2 Score 0 11/21/2018 Comments Unknown Sex and Gender Information Value Date Recorded Sex Assigned at Not on file 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
--- OUTSIDE RECORDS SUMMARY | 2024-04-07 05:39 | XMS_ITS | Encounter Summary ---
Author Organization [facility] Address [address] [place] [address] Care Team Providers Care Manhole Stripper Name Role Phone Korey Randolph MD Primary Care Provider Encounter Details Date Type Department Care Team (Late st Contact Info) Description 06/06/2018 8:30 AM QUARRY PLANT CRUSHER OPERATOR Lab [facility] [address] [place] [address] [address] [place] [address] Mixed hyperlipidemia Social History Tobacco Use Types Packs/Day Years Used Date Smoking Tobacco: Never Smokeless Tobacco: Never Comments Unknown Sex and Gender Information Value Date Recorded Sex Assigned at Not on file Legal Sex Female 11:27 PM QUARRY PLANT CRUSHER OPERATOR Gender Identity Female 08/18/2019 3:36 PM CDT Sexual Orientation Straight 08/18/2019 3: 35 PM CDT documented as of this encounter Plan of Treatment Not on file documented as of this encounter Visit Diagnoses Diagnosis Mixed hyperlipidemia documented in this encounter Care Teams Manhole Stripper Relationship Specialty Start Date End Date Korey Randolph MD PCP - General Internal Medicine 05/23/17 documented as of this encounter
--- OUTSIDE RECORDS SUMMARY | 2024-04-07 05:39 | XMS_ITS | Encounter Summary ---
Author Organization [facility] Address [address] [place] [address] Care Team Providers Care School Office Assistant Name Role Phone Korey Randolph MD Primary Care Provider Reason for Visit * Reason Comments Cough Congestion Encounter Details Date Type Department Care Team (Late st Contact Info) Description 12/04/2018 11:00 AM CDT Office Visit [facility] [address] [facility] [address] [place] [address] Dayton Cast PA [address] [place] [address] [address] [place] [address] Acute bronchitis, unspecified organism (Primary Dx); BMI 30.0-30.9,adult Social History Tobacco Use Types Packs/Day Years Used Date Smoking Tobacco: Never Smokeless Tobacco: Never PHQ-2 Answer Date Recorded PHQ-2 Score 0 11/21/2018 Comments Unknown Sex and Gender Information Value Date Recorded Sex Assigned at Not on file 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 Sex Female 11:27 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 MANAGER Gender Identity Female 08/18/2019 3:36 PM CDT Sexual Orientation Straight 08/18/2019 3: 35 PM CDT documented as of this encounter Last Filed Vital Signs Vital Sign Reading Time Taken Comments Blood Pressure 110/68 12/04/2018 10:40 AM CDT Pulse 74 12/04/2018 10:40 AM CDT Temperature 36.8 ??C (98.2 ??F) 12/04/2018 10:40 AM C DT Respiratory Rate 18 12/04/2018 10:40 AM CDT Oxygen Saturation - - Inhaled Oxygen Concentration - - Weight 65.8 kg (145 lb) 12/04/2018 10:40 AM CDT Height 147.3 cm (4' 10 ) 12/04/2018 10:40 AM CDT Body Mass Index 30.31 12/04/2018 10:40 AM CDT documented in this encounter Ordered Prescriptions Prescription Sig Dispense Quantity Refills Last Filled Start Date End Date doxycycline (VIBRAMYCIN) 100 mg capsule Take 1 tablet/capsule (100 mg total) by mouth 2 (two) times a day for 10 days 20 tablet/capsul e 12/04/2018 9 methylPREDNISolone (MEDROL, NATALIA,) 4 mg Dosepack follow package directions 21 tablet 12/04/2018 9 documented in this encounter Progress Notes * Dayton Cast PA - 12/04/2018 11:00 AM CDT Subjective/Objective Patient ID: Meghana Dueñas is a 78 y.o. female. Chief Complaint Cough and Congestion HPI Pt notes for the past week while away in [place], developed cough, chest congestion, upper back issore, chest is sore. It is productive cough, but unable to expectorate. Fever (subjective) Monday, w/ chills. She ntoes runny nose and ST. So far has tried Mucinex DM and proAir 2x to min relief. Last dx'd w/ sinusitis in September and given doxy, and had bronchitis or similar 2 times earlier thisyear. Never smoker. NO h/o lung disease/ COPD. Says she had pneumonia age 9. Review of Systems Constitutional: Positive for chills, fatigue and fever. HENT: Positive for congestion, postnasal drip, rhinorrhea and sore throat. Negative for ear pain. Voice change: hoarseness. Respiratory: Positive for cough, chest tightness and shortness of breath. Negative for wheezing. Cardiovascular: Negative for chest pain, palpitations and leg swelling. Vitals: 12/04/18 1040 BP: 110/68 BP Location: Left arm Patient Position: Sitting Pulse: 74 Resp: 18 Temp: 36.8 ??C (98.2 ??F) TempSrc: Oral Weight: 65.8 kg (145 lb) Height: 147.3 cm (4' 10 ) Physical Exam Constitutional: She appears well-developed and well-nourished. No distress. HENT: Right Ear: External ear normal. Left Ear: External ear normal. Mouth/Throat: Oropharynx is clear and moist. No oropharyngeal exudate (TMs normal, nose and throat clear. ). Neck: Normal range of motion. Neck supple. No thyromegaly present. Cardiovascular: Normal rate, regular rhythm and normal heart sounds. No murmur heard. Pulmonary/Chest: Effort normal. No respiratory distress ( BL rhonchi. loose cough). She has no wheezes. She has no rales. Lymphadenopathy: She has no cervical adenopathy. Assessment/Plan Diagnoses and all orders for this visit: Acute bronchitis, unspecified organism (Primary) Comments: will again tx w/ doxy, medrol pack, and liberalize her proAir. FU one week and will get jorge to ROunderlying asthma/ COPD given recurrent bronchitis issues BMI 30.0-30.9,adult She was counseled on the importance of maintaining a healthy weight and the risks of obesity. Weight loss recommended. Other orders - methylPREDNISolone (MEDROL, NATALIA,) 4 mg Dosepack; follow package directions - doxycycline (VIBRAMYCIN) 100 mg capsule; Take 1 tablet/capsule (100 mg total) by mouth 2 (two) times a day for 10 days Side effects, risks, interactions reviewed with patient. Indications for testing discussed. Any further problems to contact us. She was told what to look out for and verbalized understanding. The patient was given the opportunity to have all questions answered today and was in agreement with the plan of care. Cosigned by Korey Randolph MD at 12/05/2018 10:50 AM CDT documented in this encounter Plan of Treatment Not on file documented as of this encounter Visit Diagnoses Diagnosis Acute bronchitis, unspecified organism- Primary BMI 30.0-30.9,adult documented in this encounter Discontinued Medications Medication Sig Discontinue Reason Start Date End Da te methylPREDNISolone (MEDROL, NATALIA,) 4 mg DosepackIndications:br onchitis follow package directions 08/30/2018 12/04/2018 PROAIR HFA 90 mcg/actuation inhaler INHALE 2 PUFFS BY MOUTH EVERY 4 HOURS NEEDED FOR WHEEZING OR SHORTNESS OF BREATH 04/23/2018 12/04/2018 mupirocin (BACTROBAN) 2 % ointment Apply topically 3 (three) times a day. To nasal passage 06/14/2017 12/04/2018 documented as of this encounter Care Teams School Office Assistant Relationship Specialty Start Date End Date Korey Randolph MD PCP - General Internal Medicine 05/23/17 documented as of this encounter
--- OUTSIDE RECORDS SUMMARY | 2024-04-07 05:39 | XMS_ITS | Encounter Summary ---
Author Organization [facility] Care Team Providers Care Distribution Center Manager Name Role Phone Korey Randolph MD Primary Care Provider Encounter Details Date Type Department Care Team (Latest Contact Info) Description 09/03/2018 Travel Social History Tobacco Use Types Packs/Day Years Used Date Smoking Tobacco: Never Smokeless Tobacco: Never Comments Unknown Sex and Gender Information Value Date Recorded Sex Assigned at Not on file Legal Sex Female 11:27 PM CLINICAL MENTAL HEALTH COUNSELOR Gender Identity Female 08/18/2019 3:36 PM CDT Sexual Orientation Straight 08/18/2019 3: 35 PM CDT documented as of this encounter Plan of Treatment Not on file documented as of this encounter Visit Diagnoses Not on filedocumented in this encounter Care Teams Distribution Center Manager Relationship Specialty Start Date End Date Korey Randolph MD PCP - General Internal Medicine 05/23/17 documented as of this encounter
--- OUTSIDE RECORDS SUMMARY | 2024-04-07 05:39 | XMS_ITS | Encounter Summary ---
Author Organization [facility] Address [address] [place] [address] Care Team Providers Care Wind Tunnel Mechanic Name Role Phone Korey Randolph MD Primary Care Provider Encounter Details Date Type Department Care Team (Late st Contact Info) Description 06/12/2019 12:10 PM CDT [address] [address] Vitamin D deficiency; Medicare annual wellness visit, subsequent Social History Tobacco Use Types Packs/Day Years Used Date Smoking Tobacco: Never Smokeless Tobacco: Never PHQ-2 Answer Date Recorded PHQ-2 Score 0 11/21/2018 Comments Unknown Sex and Gender Information Value Date Recorded Sex Assigned at Not on file Legal Sex Female 11:27 PM RESPIRATORY THERAPY DIRECTOR Gender Identity Female 08/18/2019 3:36 PM CDT Sexual Orientation Straight 08/18/2019 3: 35 PM CDT documented as of this encounter Plan of Treatment Not on file documented as of this encounter Procedures Procedure Name Priority Date/Time Associated Diagnosis Comments EGFR Routine 06/12/2019 12:14 PM CDT Medicare annual wellness visit, subsequent VITAMIN D 25 HYDROXY Routine 06/12/2019 12:14 PM CDT Vitamin D deficiency LIPID PANEL Routine 06/12/2019 12:14 PM CDT Medicare annual wellness visit, subsequent COMPREHENSIVE METABOLIC PANEL Routine 06/12/2019 12:14 PM CDT Medicare annual wellness visit, subsequent documented in this encounter Results * eGFR (06/12/2019 12:14 PM CDT) eGFR 84 mL/min/1.7 3 m2 [facility] Comment: Interpretive Data Reference Interval Normal ?>/= 90 mL/min/1.73m2 Mildly decreased* ? 60 - 89 mL/min/1.73m2 Mildly to moderately decreased ?45 - 59 mL/min/1.73m2 Moderately to severely decreased ??30 - 44 mL/min/1.73m2 Severely decreased ?15 - 29 mL/min/1.73m2 Kidney Failure ?< 15 ??mL/min/1.73m2 *Relative to young adult level If -[place] multiply value by 1.16. Estimated glomerular filtration [...] was last reviewed 2015. Blood specimen (specimen) 06/12/2019 12:14 PM CDT 06/12/2019 12:24 PM CDT us Korey Randolph MD LAB BLOOD ORDERABLES Fi nal Result [facility] [id number] [place] [address] * Comprehensive metabolic panel (06/12/2019 12:14 PM [...] MD LAB BLOOD ORDERABLES Fi nal Result [facility] [id number] [address] Department [place] [address] * Lipid panel (06/12/2019 12:14 PM CDT) Cholesterol 174 30 - 199 mg/dL [facility] Comment: [...] on 2017. HDL 57 >=40 mg/dL [facility] BORJ[facility] Comment: Interpretive Data Ages [...] revised on 2017. Chol/HDL ratio 3 CARYN Blood specimen (specimen) 06/12/2019 12:14 PM CDT 06/12/2019 12:14 PM CDT us Korey Randolph MD LAB BLOOD ORDERABLES Fi nal Result [facility] [id number] [place] [address] * Vitamin D 25 hydroxy (06/12/2019 12:14 PM CDT) Vitamin D 25-OH 57 30 - 80 ng/mL CARYN Blood specimen (specimen) 06/12/2019 12:14 PM CDT 06/12/2019 12:14 PM CDT us Korey Randolph MD LAB BLOOD ORDERABLES Fi nal Result Performing Organization Address [facility] Co de Phone Number [facility] BORJ[facility] [phone] [place] [address] documented in this encounter Visit Diagnoses Diagnosis Vitamin D deficiency Medicare annual wellness visit, subsequent documented in this encounter Care Teams Wind Tunnel Mechanic Relationship Specialty Start Date End Date Korey Rnadolph MD PCP - General Internal Medicine 05/23/17 documented as of this encounter
--- OUTSIDE RECORDS SUMMARY | 2024-04-07 05:39 | XMS_ITS | Encounter Summary ---
Author Organization [facility] Address [address] [place] [address] Care Team Providers Care Tool Keeper Name Role Phone Korey Randolph MD Primary Care Provider Reason for Visit * Reason Onset Date Comments Med Management 07/09/2018 Patroprazole Encounter Details Date Type Department Care Team (Late st Contact Info) Description 07/09/2018 Telephone [facility] Gastroenterology at [address] [place] [address] Staci Ramos, RN Med Management (Patroprazole) Social History Tobacco Use Types Packs/Day Years Used Date Smoking Tobacco: Never Smokeless Tobacco: Never Comments Unknown Sex and Gender Information Value Date Recorded Sex Assigned at Not on file 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 Pt former Dr. Rodas pt. Left message for patient to call back to schedule o/v w/ Dr. Ross in order to refill med. n [phone] documented in this encounter Plan of Treatment Not on file documented as of this encounter Visit Diagnoses Not on filedocumented in this encounter Care Teams Tool Keeper Relationship Specialty Start Date End Date Korey Randolph MD PCP - General Internal Medicine 05/23/17 documented as of this encounter
--- OUTSIDE RECORDS SUMMARY | 2024-04-07 05:39 | XMS_ITS | Encounter Summary ---
Author Organization [facility] Address [address] [place] [address] Care Team Providers Care Hot Man Name Role Phone Korey Randolph MD Primary Care Provider Encounter Details Date Type Department Care Team (Late st Contact Info) Description 06/18/2018 [place] Only [facility] [place] [address] [place] [id number] Korey Randolph MD [address] [place] [address] [address] Social History Tobacco Use Types Packs/Day Years Used Date Smoking Tobacco: Never Smokeless Tobacco: Never Comments Unknown Sex and Gender Information Value Date Recorded Sex Assigned at Not on file 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 Gender Identity Female 08/18/2019 3:36 PM CDT Sexual Orientation Straight 08/18/2019 3: 35 PM CDT documented as of this encounter Plan of Treatment Not on file documented as of this encounter Procedures Procedure Name Priority Date/Time Associated Diagnosis Comments SCAN - RADIOLOGY/IMAGING Routine 06/18/2018 documented in this encounter Results * SCAN - RADIOLOGY/IMAGING (06/18/2018) Anatomical Region Laterality Modality Other us Historical Provider Final Res ult documented in this encounter Visit Diagnoses Not on filedocumented in this encounter Care Teams Hot Man Relationship Specialty Start Date End Date Korey Randolph MD PCP - General Internal Medicine 05/23/17 documented as of this encounter
--- OUTSIDE RECORDS SUMMARY | 2024-04-07 05:39 | XMS_ITS | Encounter Summary ---
Author Organization [facility] Address [address] [place] [address] Care Team Providers Care Works Manager Name Role Phone Korey Randolph MD Primary Care Provider Reason for Visit * Reason Comments Follow-up cough, chest congest ion, sinus drainage, fatigue, ear fullness Encounter Details Date Type Department Care Team (Late st Contact Info) Description 09/03/2018 9:15 AM CDT Office Visit [facility] [address] [facility] [address] [place] [address] Gisella Rollins, [address] [place] [address] Acute sinusitis, recurrence not specified, unspecified location (Primary Dx); BMI 31.0-31.9,adult Social History Tobacco Use Types Packs/Day Years Used Date Smoking Tobacco: Never Smokeless Tobacco: Never Tobacco Cessation:Counseling Given: No Comments Unknown Sex and Gender Information Value Date Recorded Sex Assigned at Not on file 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 Gender Identity Female 08/18/2019 3:36 PM CDT Sexual Orientation Straight 08/18/2019 3: 35 PM CDT documented as of this encounter Last Filed Vital Signs Vital Sign Reading Time Taken Comments Blood Pressure 104/62 09/03/2018 9:39 AM CDT Pulse 70 09/03/2018 9:39 AM CDT Temperature - - Respiratory Rate 16 09/03/2018 9:39 AM CDT Oxygen Saturation 97% 09/03/2018 9:39 AM CDT Inhaled Oxygen Concentration - - Weight 67.6 kg (149 lb) 09/03/2018 9:39 AM CDT Height 147.3 cm (4' 10 ) 09/03/2018 9:39 AM CDT Body Mass Index 31.14 09/03/2018 9:39 AM CDT documented in this encounter Ordered Prescriptions Prescription Sig Dispense Quantity Refills Last Filled Start Date End Date doxycycline (VIBRAMYCIN) 100 mg capsuleIndications: Upper Respiratory/HEENT Infection Take 1 tablet/caps ule (100 mg total) by mouth 2 (two) times a day for 5 days 10 tablet/capsule 09/03/2018 09/08/2018 documented in this encounter Progress Notes * Gisella Rollins, CONSUMER LENDING MANAGER - 09/03/2018 9:15 AM CDT Images from the original note were not included. [facility] DATE OF VISIT: 09/04/2018 DATE: 1940 Vitals: 09/03/18 0939 BP: 104/62 BP Location: Left arm Patient Position: Sitting Pulse: 70 Resp: 16 SpO2: 97% Weight: 67.6 kg (149 lb) Height: 147.3 cm (4' 10 ) Body mass index is 31.14 kg/m??. CHIEF COMPLAINT Chief Complaint Patient presents with ??? Follow-up cough, chest congestion, sinus drainage, fatigue, ear fullness HPI Meghana Dueñas is a 78 y.o. female presents today with c/o of continued cough, chest congestion, sinus drainage and fatigue. Patient states her cough is productive, but she is unsure of color at this time. She is feeling slightly better, but states her symptoms are still present. When in office wehad discussed using doxycyline vs z-pack. However, patient preferred zpak. She is ok with trying something different at this time. MEDICATIONS Current Outpatient Medications: ??? albuterol HFA (PROAIR HFA) 90 mcg/actuation inhaler, Inhale 2 puffs every 4 (four) hours as needed for wheezing or shortness of breath, Disp: 8.5 g, Rfl: 0 ??? aspirin 81 mg tablet, Take 81 mg by mouth daily., Disp: , Rfl: ??? atorvastatin (LIPITOR) 10 mg tablet, Take 10 mg by mouth daily., Disp: , Rfl: ??? cholecalciferol (VITAMIN D-3) 1,000 unit capsule, Take by mouth., Disp: , Rfl: ??? cyanocobalamin, vitamin B-12, (CYANOCOBALAMIN,VIT B-12,,BULK,) powder, Take by mouth., Disp: , Rfl: ??? methylPREDNISolone (MEDROL, NATALIA,) 4 mg Dosepack, follow package directions, Disp: 1 packet, Rfl: 0 ??? multivitamin,tx-minerals (VITAMINS AND MINERALS) tablet, Take by mouth., Disp: , Rfl: ??? mupirocin (BACTROBAN) 2 % ointment, Apply topically 3 (three) times a day. To nasal passage, Disp: 22 g, Rfl: 3 ??? omega 6-uha-qog-fish oil (FISH OIL) 60-90-500 mg capsule, Take [...] by mouth daily., Disp: , Rfl: ??? doxycycline (VIBRAMYCIN) 100 mg capsule, Take 1 tablet/capsule (100 mg total) by mouth 2 (two) times a day for 5 days, Disp: 10 tablet/capsule, Rfl: 0 ALLERGIES Allergies Allergen Reactions ??? Mnfmxak-Xqf-Bct Reductase Inhibitors REVIEW OF SYSTEMS Review of Systems Constitutional: Positive for fatigue. Negative for chills and fever. HENT: Positive for congestion, postnasal drip, rhinorrhea, sinus pressure and sinus pain. Negative for sore throat and voice change. Respiratory: Positive for cough. Negative for chest tightness and shortness of [...] appears well- developed and well-nourished. HENT: Head: Normocephalic. Right Ear: Hearing, tympanic membrane and ear canal normal. Left Ear: Hearing, tympanic membrane and ear canal normal. Nose: Mucosal edema and rhinorrhea present. Right sinus exhibits maxillary sinus tenderness and frontal sinus tenderness. Left sinus exhibits maxillary sinus tenderness and frontal sinus tenderness. Mouth/Throat: Posterior oropharyngeal erythema present. Eyes: Pupils are equal, round, and reactive to light. Neck: Neck supple. Cardiovascular: Normal rate, regular rhythm and normal heart sounds. Pulmonary/Chest: Effort normal and breath sounds normal. Neurological: She is alert and oriented to [...] and all orders for this visit: Acute sinusitis, recurrence not specified, unspecified location (Primary) Due to length of illness we will treat with antibiotic, please complete the whole course of antibiotics-no leftovers. Prescription for antibiotics sent. Reviewed potential benefits and potential sideeffects of doxycyline. Aware to complete full course of antibiotic. To continue otc medications. Discussed nasal saline rinses/neti pots. Discussed need to increase fluid intake. May use 1 teaspoon honey every 4 hours as needed for cough, encourage use of hot tea or hot water with honey. May use vicks vapo rub on chest and bottom of feet before bed. Cool mist humidifier in bedroom. Lots of water,rest and handwashing, no sharing cups or utensils. If symptoms worsen including but not limited to s hortness of breath, chest pain and/or increasing pain please notify office or present to Emergency Department. BMI 31.0-31.9,adult Benefits of weight loss discussed. Reviewed recommendations for daily intake & activity 20-30 minutes/day. Other orders - doxycycline (VIBRAMYCIN) 100 mg capsule; Take 1 tablet/capsule (100 mg total) by mouth 2 (two) times a day for 5 days Future Appointments Date Time Provider Department Center 06/12/2019 9:00 AM [facility], [facility] 06/26/2019 9:00 AM [...] dictated and transcribed by with assistance from [employer].?? Real Estate Photographer variances may occur. Despite proofreading, typographical errors may occur. Cosigned by Korey Randolph MD at 09/05/2018 11:48 AM CDT documented in this encounter Plan of Treatment Not on file documented as of this encounter Visit Diagnoses Diagnosis Acute sinusitis, recurrence not specified, unspecified location- Primary BMI 31.0-31.9,adult documented in this encounter Discontinued Medications Medication Sig Discontinue Reason Start Date End Da te azithromycin (ZITHROMAX Z-NATALIA) 250 mg tabletIndications:Uppe r Respiratory/HEENT Infection Take 2 tablets the first day, then 1 tablet daily for 4 days. Discontinued by another clinician 08/30/2018 09/03/2018 documented as of this encounter Care Teams Works Manager Relationship Specialty Start Date End Date Korey Randolph MD PCP - General Internal Medicine 05/23/17 documented as of this encounter
--- OUTSIDE RECORDS SUMMARY | 2024-04-07 05:39 | XMS_ITS | Encounter Summary ---
Author Organization [facility] Address [address] [place] [address] Care Team Providers Care Flat Machine Cutter Name Role Phone Korey Randolph MD Primary Care Provider Encounter Details Date Type Department Care Team (Late st Contact Info) Description 01/16/2019 Telephone [facility] [address] [address] [place] [address] [place] Cast PA [address] [place] [address] [address] [place] [address] Social History Tobacco Use Types Packs/Day Years Used Date Smoking Tobacco: Never Smokeless Tobacco: Never PHQ-2 Answer Date Recorded PHQ-2 Score 0 11/21/2018 Comments Unknown Sex and Gender Information Value Date Recorded Sex Assigned at Not on file 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 Gender Identity Female 08/18/2019 3:36 PM CDT Sexual Orientation Straight 08/18/2019 3: 35 PM CDT documented as of this encounter Miscellaneous Notes * Telephone Encounter - Connie Sosa MA - 01/16/2019 3:52 PM CDT Pt aware * Telephone Encounter - Connie Sosa MA - 01/16/2019 3:52 PM CDT ----- Message from AALIYAH Wiley sent at 01/16/2019 2:46 PM CDT ----- Please inform patient that her chest x-ray was normal, good news documented in this encounter Plan of Treatment Not on file documented as of this encounter Visit Diagnoses Not on filedocumented in this encounter Care Teams Flat Machine Cutter Relationship Specialty Start Date End Date Korey Randolph MD PCP - General Internal Medicine 05/23/17 documented as of this encounter
--- OUTSIDE RECORDS SUMMARY | 2024-04-07 05:39 | XMS_ITS | Encounter Summary ---
Author Organization [facility] Address [address] [place] [address] Care Team Providers Care Student Records Specialist Name Role Phone Korey Randolph MD Primary Care Provider Reason for Referral * Diagnostic Imaging (Routine) - Closed Specialty Diagnoses / Procedures Referred By Angelo siegel Referred To Contact Diagnoses Mild intermittent asthma with acute exacerbation Procedures XR Chest Pa Lateral 2 Views [place] Cast PA [address] [address] [place] [address] Phone: tel: fax: [address] [phone] Referral ID Status Reason Start Date Expiration Date Visits Re quested Visits Authorized [id number] Closed 01/16/2019 07/27/2020 1 1 Reason for Visit * Diagnostic Imaging (Routine) - Closed Specialty Diagnoses / Procedures Referred By Aneglo siegel Referred To Contact Diagnoses Mild intermittent asthma with acute exacerbation Procedures XR Chest Pa Lateral 2 Views [place] Cast PA [address] [facility] [address] [address] [place] [address] Phone: tel: fax: [address] [phone] Referral ID Status Reason Start Date Expiration Date Visits Re quested Visits Authorized [id number] Closed 01/16/2019 07/27/2020 1 1 Encounter Details Date Type Department Care Team (Latest Contact Info) Description 01/16/2019 11:36 AM CDT - 01/16/2019 11:59 PM CDT Hospital Encounter [facility] [address] [place] [address] Korey Randolph MD [address] [place] [address] [place] Cast PA [address] [place] [address] Mild intermittent asthma with acute exacerbation Discharge Disposition: Discharge to home or self care Social History Tobacco Use Types Packs/Day Years Used Date Smoking Tobacco: Never Smokeless Tobacco: Never PHQ-2 Answer Date Recorded PHQ-2 Score 0 11/21/2018 Comments Unknown Sex and Gender Information Value Date Recorded Sex Assigned at Not on file 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 1 atorvastatin (LIPITOR) 10 mg tablet TAKE 1 TABLET BY MOUTH EVERY DAY 30 tablet 12/20/2018 0 cyanocobalamin, vitamin B-12, (CYANOCOBALAMIN, VIT B-12,,BULK,) powder Take 2 capsules by mouth daily 3 montelukast (SINGULAIR) 10 mg tablet Take 1 tablet (10 mg total) by mouth nightly 30 tablet 11 12/11/2018 0 omega 2-nrf-zby-fish oil (FISH OIL) 60-90-500 mg capsule Take by mouth. [address] (PROTONIX) 40 mg EC tablet TAKE 1 TABLET(40 MG) BY MOUTH TWICE DAILY 90 tablet 01/16/2019 9 predniSONE (DELTASONE) 20 mg tablet Take 3 tabs daily for 3 d, then 2 for 2d, then 1 for 1 d 14 tablet 01/16/2019 9 PROAIR HFA 90 mcg/actuation inhaler Inhale 2 puffs every 4 (four) hours as needed for wheezing or shortness of breath 8.5 g 12/11/2018 0 documented as of this encounter Discharge Disposition Disposition Code Departure Means Destination Discharge to home or self care documented in this encounter Plan of Treatment Not on file documented as of this encounter Procedures Procedure Name Priority Date/Time Associated Diagnosis Comments XR CHEST PA LATERAL 2 VIEWS Schedule Routine, Read Routine (OP Routine) 01/16/2019 11:54 AM CDT Mild intermittent asthma with acute exacerbation documented in this encounter Results * XR Chest Pa [...] DISEASE. Electronically signed by: Chano Ruelas M.D [facility] XR PROCEDURES Final Result documented in this encounter Visit Diagnoses Diagnosis Mild intermittent asthma with acute exacerbation documented in this encounter Care Teams Student Records Specialist Relationship Specialty Start Date End Date Korey Randolph MD PCP - General Internal Medicine 05/23/17 documented as of this encounter
--- OUTSIDE RECORDS SUMMARY | 2024-04-07 05:39 | XMS_ITS | Encounter Summary ---
Author Organization [facility] Address [address] [place] [address] Care Team Providers Care Residence Director Name Role Phone Korey Randolph MD Primary Care Provider Encounter Details Date Type Department Care Team (Late st Contact Info) Description 06/19/2018 Telephone [facility] [address] [facility] [address] [place] [address] Korey Randolph MD [address] [place] [address] [address] [place] [address] Social History Tobacco Use Types Packs/Day Years Used Date Smoking Tobacco: Never Smokeless Tobacco: Never Comments Unknown Sex and Gender Information Value Date Recorded Sex Assigned at Not on file 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 Please let eloy know when pt has been notified. documented in this encounter Plan of Treatment Not on file documented as of this encounter Visit Diagnoses Not on filedocumented in this encounter Care Teams Residence Director Relationship Specialty Start Date End Date Korey Randolph MD PCP - General Internal Medicine 05/23/17 documented as of this encounter
--- OUTSIDE RECORDS SUMMARY | 2024-04-07 05:39 | XMS_ITS | Encounter Summary ---
Author Organization 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
--- OUTSIDE RECORDS SUMMARY | 2024-04-07 05:40 | XMS_ITS | Encounter Summary ---
Author Organization [facility] Address [address] [facility] [facility] [address] [facility] [address] [place] [address] Care Team Providers Care Analog Device Designer Name Role Phone Korey Randolph MD Primary Care Provider Encounter Details Date Type Department Care Team (Late st Contact Info) Description 07/11/2017 Orders Only [facility] [place] [facility] [place] [facility] [address] [place] [address] Scanning, Provider Social History Tobacco Use Types Packs/Day Years Used Date Smoking Tobacco: Never Smokeless Tobacco: Never PHQ-2 Answer Date Recorded PHQ-2 Total Score (If total score is 3 or more points, staff should administer the PHQ-9) 0 04/17/2020 Comments Unknown Sex and Gender Information Value Date Recorded Sex Assigned at Not on file 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
--- OUTSIDE RECORDS SUMMARY | 2024-04-07 05:40 | XMS_ITS | Encounter Summary ---
Author Organization [facility] Address [address] [place] [address] Care Team Providers Care Novelty Chain Maker Name Role Phone Korey Randolph MD Primary Care Provider Reason for Referral * Diagnostic Imaging (Routine) - Closed Specialty Diagnoses / Procedures Referred By Contac t Referred To Contact Diagnoses Lower respiratory infection Procedures XR Chest Pa Lateral 2 Vw Rachel Peace NP Phone: tel: fax: [facility] [address] [place] [address] Referral ID Status Reason Start Date Expiration Date Visits Re quested Visits Authorized [id number] Closed 04/10/2018 10/20/2019 1 1 SMITH Reason for Visit * Reason Comments Cough Generalized Body Aches Encounter Details Date Type Department Care Team (Late st Contact Info) Description 04/10/2018 10:30 AM SHIPSMITH Office Visit [facility] [address] [place] [address] Rachel Peace NP [facility] [address] Sonny AMATO [address] [place] [id number] Cough (Primary Dx); BMI 29.0-29.9,adult; Lower respiratory infection Social History Tobacco Use Types Packs/Day Years Used Date Smoking Tobacco: Never Smokeless Tobacco: Never Comments Unknown Sex and Gender Information Value Date Recorded Sex Assigned at Not on file Legal Sex Female 11:27 PM SHIPSMITH Gender Identity Female 08/18/2019 3:36 PM CDT Sexual Orientation Straight 08/18/2019 3: 35 PM CDT documented as of this encounter Last Filed Vital Signs Vital Sign Reading Time Taken Comments Blood Pressure 104/60 04/10/2018 10:51 AM SHIPSMITH Pulse 85 04/10/2018 10:51 AM SHIPSMITH Temperature 37.3 ??C (99.1 ??F) 04/10/2018 10:[address] Respiratory Rate 18 04/10/2018 10:51 AM SHIPSMITH Oxygen Saturation 95% 04/10/2018 10:51 AM SHIPSMITH Inhaled Oxygen Concentration - - Weight 62.1 kg (137 lb) 04/10/2018 10:51 AM SHIPSMITH Height 144.8 cm (4' 9 ) 04/10/2018 10:51 AM SHIPSMITH Body Mass Index 29.65 04/10/2018 10:51 AM SHIPSMITH documented in this encounter Ordered Prescriptions Prescription Sig Dispense Quantity Refills Last Filled Start Date End Date methylPREDNISolone (MEDROL DOSEPACK) 4 mg Dosepack Take as directed on package. 21 tablet 04/10/2018 9 albuterol HFA (PROAIR HFA) 90 mcg/actuation inhaler Inhale 2 puffs every 4 (four) hours as needed for wheezing or shortness of breath. 8.5 g 04/10/2018 9 azithromycin (ZITHROMAX) 250 mg tablet Take 2 tabs (500 mg) by mouth today, than 1 tab (250 mg) daily for 4 days. 6 tablet 04/10/2018 9 documented in this encounter Progress Notes * Rachel Peace, EARTH SCIENCE FACULTY MEMBER - 04/10/2018 10:30 AM CST Subjective/Objective Patient ID: Meghana Dueñas is a 78 y.o. female. Chief Complaint Cough and Generalized Body Aches HPI Patient presents to office today with complaints of fatigue, generalized myalgias, ST, loose, non-productive cough gradually worsening over last 3 days. She noted to have pneumonia two years ago, andis worried her acute symptoms will develop into infection without treatment. She noted to have previously years ago, and received her pneumococcal vaccinations prior to transferring her care to our practice. She mention having some mild nasal congestion without notable drainage down throat or rhinorrhea. Dyspnea with cough or exertion noted and wheezing has progressively worse over last 24 hr as well. Mucinex and Robitussin have not assisted very well with overall symptom alleviation. No notable feversat home but she does state that she has had chills and again myalgias, low-grade fever in office today without antipyretics and 99. Decreased appetite but no other GI upset noted Patient did receive the flu vaccine this year. Review of Systems Constitutional: Positive for activity change and appetite change. Negative for diaphoresis. Refer to HPI HENT: Refer to HPI Eyes: Negative. Respiratory: Positive for shortness of breath and wheezing. Refer to HPI Cardiovascular: Negative for chest pain. Gastrointestinal: Negative. Skin: Negative for rash. Neurological: Negative for dizziness. Vitals BP 104/60 Pulse 85 Temp 37.3 ??C (99.1 ??F) (Oral) Resp 18 Ht 144.8 cm (4' 9 ) Wt 62.1 kg (137 lb) SpO2 95% BMI 29.65 kg/m?? Physical Exam Constitutional: She is oriented to person, place, and time. She appears well- developed and well-nourished. No distress. HENT: Head: Normocephalic and atraumatic. Right Ear: External ear normal. Left Ear: External ear normal. Nose: Nose normal. Mouth/Throat: No oropharyngeal exudate. Mild clear postnasal drip with mild erythema noted;tonsil grade 0 BL Clear rhinorrhea and mucosal edema notable in bilateral nares Bilateral TMs are normal and translucent No notable frontal or maxillary sinus pain with pressure Diffuse head/neck lymphadenopathy Eyes: Pupils are equal, round, and reactive to light. Conjunctivae are normal. Cardiovascular: Normal rate, regular rhythm, normal heart sounds and intact distal pulses. Pulmonary/Chest: Effort normal. No respiratory distress. She has wheezes (Diffuse rhonchi noted throughout all lobes without clearance with deep cough; mild wheezing noted with exhalation bilateral upper lobes). Clear aeration heard throughout all lobes Dry/nonproductive cough in office Abdominal: Soft. Neurological: She is alert and oriented to person, place, and time. Skin: Skin is warm. She is not diaphoretic. Diagnostics: Rapid influenza in office today negative Lab Results Component Value Date HGB 13.5 06/25/2015 HCT 40.0 06/25/2015 LABPLAT 173 06/25/2015 CHOL 149 05/30/2017 TRIG 62 05/30/2017 HDL 56 05/30/2017 ALT 30 05/30/2017 AST 23 05/30/2017 SODIUM 143 05/30/2017 POTASSIUM 3.8 05/30/2017 CHLORIDE 108 05/30/2017 CREATININE 0.76 05/30/2017 BUNSER 16 05/30/2017 CO2 27 05/30/2017 CXR last completed 06/25/15: 1. NO PULMONARY EMBOLISM. 2. BRONCHIECTASIS. 3. SCARRING AND FIBROSIS IN THE LUNG BASES. Procudures: nebulizer treatment provided in office today with DuoNeb solution to which patient's cough became slightly more loose, nonproductive, notable improvement with diffuse rhonchi previously noted however there was residual, expiratory rhonchi noted in left UL and LL. Resolution of wheezing noted. Oxygen saturation did increase to 98% Assessment/Plan Diagnoses and all orders for this visit: Cough (R05) (Primary) Comments: Rapid influenza negative Orders: - POCT influenza A/B - ipratropium-albuterol (DUO-NEB) 0.5-2.5 mg/3 mL nebulizer solution 3 mL; Take 3 mL by nebulization once. BMI 29.0-29.9,adult (Z68.29) Lower respiratory infection (J22) Assessment & Plan: Considering improvement with neb treatment, I am suspicious of bronchitis. Z- pack, medrol pack, andproair use Q4hrs for next 3 days, then prn for indications provided in office after. CXR to r/o pneumonia considering hx. Increase fluids, robatussin for nocturnal cough and mucinex for daytime cough expectorant. RTC in 3days for re-evaluation Orders: - XR Chest Pa Lateral 2 Vw; Future - Nebulizer Treatment; Future Other orders - azithromycin (ZITHROMAX) 250 mg tablet; Take 2 tabs (500 mg) by mouth today, than 1 tab (250 mg) daily for 4 days. - albuterol HFA (PROAIR HFA) 90 mcg/actuation inhaler; Inhale 2 puffs every 4 (four) hours as needed for wheezing or shortness of breath. - methylPREDNISolone (MEDROL DOSEPACK) 4 mg Dosepack; Take as directed on package. Disposition: All past family, medical, and social history were reviewed and updated in the EMR as well as current medications. Pt offered no further complaints and was in agreement with plan of care.They were advised regarding dosage, use, and side effects of medications. Pt was advised to f/u in office with any worsening or little improvement of symptoms until next scheduled office visit. Patient was advised to follow up regarding the results of testing ordered in office today should hear from us regarding the results in 2-3 business days Cosigned by Korey Randolph MD at 04/10/2018 12:59 PM SHIPSMITH SMITH SMITH documented in this encounter Miscellaneous Notes * Assessment & Plan Note - Rachel Peace NP - 04/10/2018 11:40 AM SHIPSMITH Associated Problem(s): Lower respiratory infection (Resolved 04/17/2018) Considering improvement with neb treatment, I am suspicious of bronchitis. Z- pack, medrol pack, andproair use Q4hrs for next 3 days, then prn for indications provided in office after. CXR to r/o pneumonia considering hx. Increase fluids, robatussin for nocturnal cough and mucinex for daytime cough expectorant. RTC in 3days for re-evaluation SMITH documented in this encounter Plan of Treatment Not on file documented as of this encounter Procedures Procedure Name Priority Date/Time Associated Diagnosis Comments POCT INFLUENZA A/B Routine 04/10/2018 11 :03 AM SHIPSMITH Cough documented in this encounter Results * XR Chest Pa Lateral 2 Vw (04/10/2018 12:26 PM SHIPSMITH) Anatomical Region Laterality Modality Body, Chest N/A Computed Radiogr aphy 04/10/2018 1:35 PM SHIPSMITH Impressions 04/10/2018 1:39 PM SHIPSMITH 1. ??No active disease seen. 2. ??No significant change compared to 06/25/2015. Electronically signed by: Montez Yip Jr., M.D. Narrative 04/10/2018 1:39 PM SHIPSMITH XR CHEST PA LATERAL 2 VIEWS HISTORY: Coughing shorts of breath since Monday. ??Previous history of pneumonia. ??Nonsmoker. COMPARISON: PA and lateral chest on 06/25/2015. VIEWS: Erect PA and lateral views FINDINGS: Heart size is normal. ??Pulmonary vascularity is normal . Thoracic aorta is arteriosclerotic, but not dilated. No infiltrate, mass or pleural effusion is seen. Minimal degenerative change is present in the thoracic spine. Procedure Note Montez Yip Jr., MD - 04/10/2018 XR CHEST PA LATERAL 2 VIEWS HISTORY: Coughing shorts of breath since Monday. Previous history of pneumonia. Nonsmoker. COMPARISON: PA and lateral chest on 06/25/2015. VIEWS: Erect PA and lateral views FINDINGS: Heart size is normal. Pulmonary vascularity is normal . Thoracic aorta is arteriosclerotic, but not dilated. No infiltrate, mass or pleural effusion is seen. Minimal degenerative change is present in the thoracic spine. IMPRESSION: 1. No active disease seen. 2. No significant change compared to 06/25/2015. Electronically signed by: Montez Yip Jr., M.D. us Rachel Peace EARTH SCIENCE FACULTY MEMBER IMG XR PROCEDURES Final Resu lt * POCT influenza A/B (04/10/2018 11:03 AM SHIPSMITH) Pathologist [facility] Rapid Influenza A Ag negative Rapid Influenza B Ag negative Nasal 04/10/2018 11:0 3 AM SHIPSMITH us Rachel Peace EARTH SCIENCE FACULTY MEMBER POINT OF CARE TEST ORDERABLE S Final Result documented in this encounter Visit Diagnoses Diagnosis Cough- Primary BMI 29.0-29.9,adult Lower respiratory infection Other diseases of respiratory system, not elsewhere classified Lower respiratory infection Other diseases of respiratory system, not elsewhere classified documented in this encounter Administered Medications Inactive Administered Medications - up to 3 most recent administrations Medication Order MAR Action Action Date Dose Rate Site ipratropium-albuterol (DUO-NEB) 0.5-2.5 mg/3 mL nebulizer solution 3 mL 3 mL, nebulization, Once (respiratory therapy assistant), On Mon04/10/18 at 1200, For 1 dose, Indications: Chronic Obstructive Pulmonary Disease with BronchospasmsIndications:Chronic Obstructive Pulmonary Disease with Bronchospasms Given 04/10/2018 11:27 AM SHIPSMITH 3 mL documented in this encounter Historical Medications * This list may reflect changes made after this encounter. cholecalciferol (VITAMIN D-3) 1,000 unit capsule Take by mouth daily multivitamin with minerals tablet Take 1 tablet by mouth daily omega 8-hvj-ihg-fish oil (FISH OIL) 60-90-500 mg capsule Take by mouth. 12/19/2019 cyanocobalamin, vitamin B-12, (CYANOCOBALAMIN, VIT B-12,,BULK,) powder Take 2 capsules by mouth daily 07/11/2022 added in this encounter Care Teams Novelty Chain Maker Relationship Specialty Start Date End Date Korey Randolph MD PCP - General Internal Medicine 05/23/17 documented as of this encounter
--- OUTSIDE RECORDS SUMMARY | 2024-04-07 05:40 | XMS_ITS | Encounter Summary ---
Author Organization [facility] Address [address] [place] [address] Phone Care Team Providers Care Dining Host Name Role Phone Korey Randolph MD Primary Care Provider Encounter Details Date Type Department Care Team (Late st Contact Info) Description 05/30/2017 Orders Only [facility] ProviderJeremias MD [address] [place] [id number] Social History Tobacco Use Types Packs/Day Years Used Date Smoking Tobacco: Never Comments Unknown Sex and Gender Information Value Date Recorded Sex Assigned at Not on file Legal Sex Female 11:27 PM GRADE RECORDER Gender Identity Female 08/18/2019 3:36 PM CDT Sexual Orientation Straight 08/18/2019 3: 35 PM CDT documented as of this encounter Plan of Treatment Not on file documented as of this encounter Procedures Procedure Name Priority Date/Time Associated Diagnosis Comments DISCHARGE LABORATORY CUMULATIVE REPORT 05/30/2017 12:00 AM GRADE RECORDER documented in this encounter Results * DISCHARGE LABORATORY CUMULATIVE REPORT (05/30/2017 12:00 AM GRADE RECORDER) Narrative 05/30/2017 12:00 AM GRADE RECORDER Ordered by an unspecified provider. Historical Provider LAB BLOOD ORDERABLES Mireya l Result documented in this encounter Visit Diagnoses Not on filedocumented in this encounter Additional Health Concerns Infection Onset Date Last Indicated Resolved Time COVID: Suspected 01/09/2022 01/09/2022 01/09/2022 3:41 PM CDT COVID: Suspected 02/18/2022 02/18/2022 02/18/2022 11:02 AM GRADE RECORDER Influenza, adult 02/18/2022 02/18/2022 02/25/2022 3:05 AM GRADE RECORDER COVID: Suspected 05/30/2023 05/30/2023 05/30/2023 8:46 PM GRADE RECORDER documented as of this encounter Care Teams Dining Host Relationship Specialty Start Date End Date Korey Randolph MD PCP - General Internal Medicine 05/23/17 documented as of this encounter
--- OUTSIDE RECORDS SUMMARY | 2024-04-07 05:40 | XMS_ITS | Encounter Summary ---
Author Organization [facility] Address [address] [place] [address] Care Team Providers Care Car Pick Up Driver Name Role Phone Unavailable Primary Care Provider Unavailabl e Encounter Details Date Type Department Care Team (Late st Contact Info) Description 09/13/2011 9:01 PM CDT - 09/13/2011 11:10 PM CDT Hospital Encounter [facility] Adiel Vaca MD [address] [place] [address] [place] [id number] Painful respiration Social History Tobacco Use Types Packs/Day Years Used Date Smoking Tobacco: Never Assessed Comments Unknown Sex and Gender Information Value Date Recorded Sex Assigned at Not on file Legal Sex Female 11:27 PM TECHNICAL SALES SUPPORT SPECIALIST Gender Identity Female 08/18/2019 3:36 PM CDT Sexual Orientation Straight 08/18/2019 3: 35 PM CDT documented as of this encounter Plan of Treatment Not on file documented as of this encounter Visit Diagnoses Diagnosis Painful respiration documented in this encounter
--- OUTSIDE RECORDS SUMMARY | 2024-04-07 05:40 | XMS_ITS | Encounter Summary ---
Author Organization [facility] Address [address] [place] [address] Care Team Providers Care Accounting Auditor Name Role Phone Unavailable Primary Care Provider Unavailabl e Encounter Details Date Type Department Care Team (Latest Contact Info) Description 06/21/2010 10:21 AM CDT - 06/21/2010 11:59 PM CDT Hospital Encounter [facility] Alonzo Cevallos Elevation of level of transaminase and lactic acid dehydrogenase (LDH) Social History Tobacco Use Types Packs/Day Years Used Date Smoking Tobacco: Never Assessed Comments Unknown Sex and Gender Information Value Date Recorded Sex Assigned at Not on file Legal Sex Female 11:27 PM DRAFTER STRUCTURAL Gender Identity Female 08/18/2019 3:36 PM CDT Sexual Orientation Straight 08/18/2019 3: 35 PM CDT documented as of this encounter Plan of Treatment Not on file documented as of this encounter Visit Diagnoses Diagnosis Elevation of level of transaminase and lactic acid dehydrogenase (LDH) documented in this encounter
--- OUTSIDE RECORDS SUMMARY | 2024-04-07 05:40 | XMS_ITS | Encounter Summary ---
Author Organization [facility] Healthcare Address [address] [place] [address] Care Team Providers Care Fiction And Nonfiction Prose Writer Name Role Phone Unavailable Primary Care Provider Unavailabl e Encounter Details Date Type Department Care Team (Late st Contact Info) Description 11/23/2007 12:01 AM CDT - 11/23/2007 11:59 PM CDT Hospital Encounter [facility] Cevallos Social History Tobacco Use Types Packs/Day Years Used Date Smoking Tobacco: Never Assessed Comments Unknown Sex and Gender Information Value Date Recorded Sex Assigned at Not on file Legal Sex Female 11:27 PM DIGITAL ARTIST Gender Identity Female 08/18/2019 3:36 PM CDT Sexual Orientation Straight 08/18/2019 3: 35 PM CDT documented as of this encounter Plan of Treatment Not on file documented as of this encounter Visit Diagnoses Not on filedocumented in this encounter
--- OUTSIDE RECORDS SUMMARY | 2024-04-07 05:40 | XMS_ITS | Encounter Summary ---
Author Organization [facility] Address [address] [place] [address] Care Team Providers Care Gas Turbine Powerplant Mechanic Name Role Phone Korey Randolph MD Primary Care Provider Encounter Details Date Type Department Care Team (Late st Contact Info) Description 05/30/2017 8:00 AM OIL WINTERIZER Lab [facility] [address] [place] [address] [address] [place] [address] Mixed hyperlipidemia Social History Tobacco Use Types Packs/Day Years Used Date Smoking Tobacco: Never Comments Unknown Sex and Gender Information Value Date Recorded Sex Assigned at Not on file Legal Sex Female 11:27 PM OIL WINTERIZER Gender Identity Female 08/18/2019 3:36 PM CDT Sexual Orientation Straight 08/18/2019 3: 35 PM CDT documented as of this encounter Plan of Treatment Not on file documented as of this encounter Visit Diagnoses Diagnosis Mixed hyperlipidemia documented in this encounter Care Teams Gas Turbine Powerplant Mechanic Relationship Specialty Start Date End Date Korey Randolph MD PCP - General Internal Medicine 05/23/17 documented as of this encounter
--- OUTSIDE RECORDS SUMMARY | 2024-04-07 05:40 | XMS_ITS | Encounter Summary ---
Author Organization [facility] Address [address] [place] [address] Care Team Providers Care Recycling Technician Name Role Phone Korey Randolph MD Primary Care Provider Encounter Details Date Type Department Care Team (Late st Contact Info) Description 04/10/2018 Telephone [facility] [address] [place] [address] Zuleima Sprague MA Social History Tobacco Use Types Packs/Day Years Used Date Smoking Tobacco: Never Smokeless Tobacco: Never Comments Unknown Sex and Gender Information Value Date Recorded Sex Assigned at Not on file Legal Sex Female 11:27 PM ROUTE SUPERVISOR Gender Identity Female 08/18/2019 3:36 PM CDT Sexual Orientation Straight 08/18/2019 3: 35 PM CDT documented as of this encounter Miscellaneous Notes * Telephone Encounter - Zuleima Sprague MA - 04/10/2018 2:46 PM CST Pt aware E SUPERVISOR * Telephone Encounter - Zuleima Sprague MA - 04/10/2018 2:46 PM CST ----- Message from Rachel Peace NP sent at 04/10/2018 1:43 PM ROUTE SUPERVISOR ----- Please call patient and let her know that her chest x-ray was negative for pneumonia. I would recommend continuing management recommended office is likely acute bronchitis. Will follow-up on Monday to see how she is doing overall. Thank you E SUPERVISOR documented in this encounter Plan of Treatment Not on file documented as of this encounter Visit Diagnoses Not on filedocumented in this encounter Care Teams Recycling Technician Relationship Specialty Start Date End Date Korey Randolph MD PCP - General Internal Medicine 05/23/17 documented as of this encounter
--- OUTSIDE RECORDS SUMMARY | 2024-04-07 05:40 | XMS_ITS | Encounter Summary ---
Author Organization [facility] Healthcare Address [address] [place] [address] Care Team Providers Care Assistant Project Engineer Name Role Phone Unavailable Primary Care Provider Unavailabl e Encounter Details Date Type Department Care Team (Late st Contact Info) Description 11/26/2007 12:01 AM CDT - 11/26/2007 11:59 PM CDT Hospital Encounter [facility] Cevall[facility] Social History Tobacco Use Types Packs/Day Years Used Date Smoking Tobacco: Never Assessed Comments Unknown Sex and Gender Information Value Date Recorded Sex Assigned at Not on file Legal Sex Female 11:27 PM SUPERVISOR ORE DRESSING Gender Identity Female 08/18/2019 3:36 PM CDT Sexual Orientation Straight 08/18/2019 3: 35 PM CDT documented as of this encounter Plan of Treatment Not on file documented as of this encounter Visit Diagnoses Not on filedocumented in this encounter
--- OUTSIDE RECORDS SUMMARY | 2024-04-07 05:40 | XMS_ITS | Encounter Summary ---
Author Organization [facility] Address [address] [place] [address] Care Team Providers Care Head Of Product Name Role Phone Alec Banks MD Primary Care Provider [phone] Korey Randolph MD Primary Care Provider Reason for Visit * Reason Comments Preventative Care Encounter Details Date Type Department Care Team (Late st Contact Info) Description 10/07/2016 11:30 AM CDT Office Visit [facility] [address] [place] [address] Korey Randolph MD [address] [place] [address] [address] [place] [address] Mixed hyperlipidemia (Primary Dx); Gastroesophageal reflux disease without esophagitis; Esophageal stricture; Macular degeneration, dry; Vitamin D deficiency Social History Tobacco Use Types Packs/Day Years Used Date Smoking Tobacco: Never Comments Unknown Sex and Gender Information Value Date Recorded Sex Assigned at Not on file 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 Gender Identity Female 08/18/2019 3:36 PM CDT Sexual Orientation Straight 08/18/2019 3: 35 PM CDT documented as of this encounter Last Filed Vital Signs Vital Sign Reading Time Taken Comments Blood Pressure 126/60 10/07/2016 11:43 AM CDT Pulse 76 10/07/2016 11:43 AM CDT Temperature - - Respiratory Rate 16 10/07/2016 11:43 AM CDT Oxygen Saturation - - Inhaled Oxygen Concentration - - Weight 65.8 kg (145 lb) 10/07/2016 11:43 AM CDT Height 146.1 cm (4' 9.5 ) 10/07/2016 11:43 AM CD T Body Mass Index 30.83 10/07/2016 11:43 AM CDT documented in this encounter Progress Notes * Korey Randolph MD - 10/07/2016 11:30 AM CDT Subjective/Objective Patient ID: Meghana Dueñas is a 76 y.o. female. Chief Complaint Preventative Care HPI The patient is a 76-year-old white female who comes in to [facility] after losing her long-time Primary Care Physician. Her has been my long- term patient and prevent the [facility] to takeher on. She currently is being treated for severe reflux that recently was studied by Dr. Rodas. He did an EGD on the patient and she did have to have a dilatation for esophageal stricture. And Patient is also on cholesterol-lowering medication. She also has macular degeneration and is on vitamins for that but has had no more aggressive therapy than that. Patient's past history includes a simple hysterectomy with a unilateral ovary and tube removal. Shehas had shoulder surgery in 2000. She has had bladder tie- up by Dr. Bean in 2006. She has had a cholecystectomy 2009. Her mother at age 90 with Alzheimer's disease. Her father age 51 of a heart attack and she thinks he was a smoker. Her siblings are in good health. The social history patient does not drinkor smoke or abuse alcohol or caffeine. Review of Systems Constitutional: Negative for chills, [...] Negative for dysphoric mood and sleep disturbance. Physical Exam Constitutional: She is oriented to person, place, and time. She appears well- developed and well-nourished. HENT: Head: Normocephalic and atraumatic. Right Ear: External ear normal. Left Ear: External ear normal. Nose: Nose normal. Mouth/Throat: Oropharynx is clear and moist. Eyes: Conjunctivae and EOM are normal. Pupils are equal, round, and reactive to light. Neck: Normal range of motion. Neck supple. Cardiovascular: Normal rate, regular rhythm, normal heart sounds and intact distal pulses. Pulmonary/Chest: Breath sounds normal. Abdominal: Soft. Bowel sounds are normal. Genitourinary: Genitourinary Comments: The breast exam was normal including the nipples and axilla. Musculoskeletal: Normal range of motion. Neurological: She is alert and oriented to person, place, and time. She has normal reflexes. Skin: Skin is warm and dry. Psychiatric: She has a normal mood and affect. Nursing note and vitals reviewed. Assessment/Plan Diagnoses and all orders for this visit: 1. Mixed hyperlipidemia (Primary) The patient's blood work was done at her recent yearly physical so I will not repeat her labs at this time patient tells me there were just fine. 2. Gastroesophageal reflux disease without esophagitis The patient is on aggressive PPI therapy for her reflux and esophageal stricture and had a recent EGD there is no signs of bleeding or other serious pathology at this time 3. Esophageal stricture The esophageal strictures been dilated recently. She is swallowing well now. 4. Macular degeneration, dry Her eyes are being checked regularly by her specialist. 5. Vitamin D deficiency Her vitamin-D is being replaced orally on a daily basis. Other orders - Lipid panel; Future - 1,25 Dihydroxycholecalciferol; Future - Comprehensive metabolic panel; Future documented in this encounter Miscellaneous Notes * Addendum Note - Rocio Sol CLT - 10/07/2016 11:30 AM CDTAddended by: ROCIO SOL on: 05/23/2017 01:22 PM Modules accepted: Orders TRACTOR MECHANIC * Addendum Note - Rocio Sol CLT - 10/07/2016 11:30 AM CDTAddended by: ROCIO SOL on: 05/23/2017 01:22 PM Modules accepted: Orders TRACTOR MECHANIC * Addendum Note - Rocio Sol CLT - 10/07/2016 11:30 AM CDTAddended by: ROCIO SOL on: 05/23/2017 01:24 PM Modules accepted: Orders TRACTOR MECHANIC documented in this encounter Plan of Treatment Not on file documented as of this encounter Visit Diagnoses Diagnosis Mixed hyperlipidemia- Primary Gastroesophageal reflux disease without esophagitis Esophageal reflux Esophageal stricture Stricture and stenosis of esophagus Macular degeneration, 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 vitamin E 400 unit capsule Take 1 capsule (400 Units total) by mouth daily aspirin 81 mg tablet Take 81 mg by mouth daily. 04/06/2020 atorvastatin (LIPITOR) 10 mg tablet Take 10 mg by mouth daily. 12/20/2018 added in this encounter Care Teams Head Of Product Relationship Specialty Start Date End Date Alec Banks MD [address] [place] [address] PCP - General 07/26/16 05/22/17 Korey Randolph MD [address] [place] [address] PCP - General Internal Medicine 05/23/17 documented as of this encounter
--- OUTSIDE RECORDS SUMMARY | 2024-04-07 05:40 | XMS_ITS | Encounter Summary ---
Author Organization [facility] Address [address] [place] [address] Care Team Providers Care Rotary Drum Dyer Name Role Phone Korey Randolph MD Primary Care Provider Reason for Visit * Reason Comments Follow-up Cough Encounter Details Date Type Department Care Team (Late st Contact Info) Description 04/17/2018 1:30 PM COMMUNICATION AND OUTREACH MANAGER Office Visit [facility] [address] [place] [address] [address] [place] [address] Rachel Peace, COLLISION CENTER MANAGER [address] [place] [address] [address] Lower respiratory infection (Primary Dx); BMI 30.0-30.9,adult Social History Tobacco Use Types Packs/Day Years Used Date Smoking Tobacco: Never Smokeless Tobacco: Never Comments Unknown Sex and Gender Information Value Date Recorded Sex Assigned at Not on file Legal Sex Female 11:27 PM COMMUNICATION 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 OUTREACH MANAGER Gender Identity Female 08/18/2019 3:36 PM CDT Sexual Orientation Straight 08/18/2019 3: 35 PM CDT documented as of this encounter Last Filed Vital Signs Vital Sign Reading Time Taken Comments Blood Pressure 120/60 04/17/2018 1:20 PM COMMUNICATION AND OUTREACH MANAGER Pulse 76 04/17/2018 1:20 PM COMMUNICATION AND OUTREACH MANAGER Temperature 37.1 ??C (98.8 ??F) 04/17/2018 1:20 PM CS T Respiratory Rate 16 04/17/2018 1:20 PM COMMUNICATION AND OUTREACH MANAGER Oxygen Saturation - - Inhaled Oxygen Concentration - - Weight 63.5 kg (140 lb) 04/17/2018 1:20 PM COMMUNICATION AND OUTREACH MANAGER Height 144.8 cm (4' 9 ) 04/17/2018 1:20 PM COMMUNICATION AND OUTREACH MANAGER Body Mass Index 30.3 04/17/2018 1:20 PM COMMUNICATION AND OUTREACH MANAGER documented in this encounter Progress Notes * Rachel Peace, COLLISION CENTER MANAGER - 04/17/2018 1:30 PM CST Subjective/Objective Patient ID: Meghana Dueñas is a 78 y.o. female. Chief Complaint Follow-up and Cough HPI Pt presents to office today for follow-up in regard to acute bronchitis after having completed a Z-Alphonso, and Medrol Dosepak 5 days ago. Pt also completed a chest x-ray which was negative ruling out concerns of pneumonia. She notes that she is significantly better with only mild C/o a mild cough and runny nose. She has completed antibiotics and steroids this point without any concerns regarding chest congestion, dyspnea, wheezing previously noted. No other acute complaints office today Review of Systems Constitutional: Negative for activity change, appetite change and diaphoresis. Refer to HPI HENT: Refer to HPI Eyes: Negative. Respiratory: Refer to HPI Cardiovascular: Negative for chest pain. Gastrointestinal: Negative. Skin: Negative for rash. Neurological: Negative for dizziness. Vitals BP 120/60 Pulse 76 Temp 37.1 ??C (98.8 ??F) (Oral) Resp 16 Ht 144.8 cm (4' 9 ) Wt 63.5 kg (140 lb) BMI 30.30 kg/m?? Physical Exam Constitutional: She is oriented to person, place, and time. She appears well- developed and well-nourished. HENT: Head: Normocephalic and atraumatic. Right Ear: External ear normal. Left Ear: External ear normal. Clear rhinorrhea noted BL nares without mucosal edema Post pharyngeal Assessment demonstrates clear drainage, mild, no erythema Mild, BL submandibular lymphadenopathy otherwise normal Eyes: Pupils are equal, round, and reactive to light. Cardiovascular: Normal rate, regular rhythm and normal heart sounds. Exam reveals no gallop. No murmur heard. Pulmonary/Chest: Effort normal and breath sounds normal. No respiratory distress. She has no wheezes. Neurological: She is alert and oriented to person, place, and time. Psychiatric: She has a normal mood and affect. Her behavior is normal. Diagnostics: Lab Results Component Value Date HGB 13.5 06/25/2015 HCT 40.0 06/25/2015 LABPLAT 173 06/25/2015 CHOL 149 05/30/2017 TRIG 62 05/30/2017 HDL 56 05/30/2017 ALT 30 05/30/2017 AST 23 05/30/2017 SODIUM 143 05/30/2017 POTASSIUM 3.8 05/30/2017 CHLORIDE 108 05/30/2017 CREATININE 0.76 05/30/2017 BUNSER 16 05/30/2017 CO2 27 05/30/2017 Chest x-ray completed on 04/10/2018 was negative for acute cardiopulmonary process Assessment/Plan Diagnoses and all orders for this visit: Lower respiratory infection (J22) (Primary) Comments: Significantly improved. No further treatment at this time. I did encourage Pt to only use her ProAir on a p.r.n. Basis and RTC prn BMI 30.0-30.9,adult (Z68.30) Disposition: All past family, medical, and social [...] days Cosigned by Korey Randolph MD at 04/17/2018 5:39 PM COMMUNICATION AND OUTREACH MANAGER UNICATION AND OUTREACH MANAGER UNICATION AND OUTREACH MANAGER documented in this encounter Plan of Treatment Not on file documented as of this encounter Visit Diagnoses Diagnosis Lower respiratory infection- Primary Other diseases of respiratory system, not elsewhere classified BMI 30.0-30.9,adult documented in this encounter Discontinued Medications Medication Sig Discontinue Reason Start Date End Da te methylPREDNISolone (MEDROL DOSEPACK) 4 mg Dosepack Take as directed on package. 04/10/2018 04/17/2018 documented as of this encounter Care Teams Rotary Drum Dyer Relationship Specialty Start Date End Date Korey Randolph MD PCP - General Internal Medicine 05/23/17 documented as of this encounter
--- OUTSIDE RECORDS SUMMARY | 2024-04-07 05:40 | XMS_ITS | Encounter Summary ---
Author Organization [facility] Address [address] [place] [address] Care Team Providers Care Waistband Setter Name Role Phone Korey Randolph MD Primary Care Provider Encounter Details Date Type Department Care Team (Late st Contact Info) Description 07/19/2017 Orders Only [facility] Health Information Management [address] [place] [address] Scanning, Provider Social History Tobacco Use Types Packs/Day Years Used Date Smoking Tobacco: Never Smokeless Tobacco: Never PHQ-2 Answer Date Recorded PHQ-2 Total Score (If total score is 3 or more points, staff should administer the PHQ-9) 0 04/17/2020 Comments Unknown Sex and Gender Information Value Date Recorded Sex Assigned at Not on file 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
--- OUTSIDE RECORDS SUMMARY | 2024-04-07 05:40 | XMS_ITS | Encounter Summary ---
Author Organization [facility] Address [address] [place] [address] Care Team Providers Care Retail Operations Specialist Name Role Phone Korey Randolph MD Primary Care Provider Reason for Referral * Diagnostic Imaging (Routine) - Closed Specialty Diagnoses / Procedures Referred By Contac t Referred To Contact Diagnoses Lower respiratory infection Procedures XR Chest Pa Lateral 2 Vw Rachel Paece NP Phone: tel: fax: [address] [phone] Referral ID Status Reason Start Date Expiration Date Visits Re quested Visits Authorized [id number] Closed 04/10/2018 10/20/2019 1 1 SH CENTRE MANAGER Reason for Visit * Diagnostic Imaging (Routine) - Closed Specialty Diagnoses / Procedures Referred By Contac t Referred To Contact Diagnoses Lower respiratory infection Procedures XR Chest Pa Lateral 2 Vw Rachel Peace NP Phone: tel: fax: [address] [phone] Referral ID Status Reason Start Date Expiration Date Visits Re quested Visits Authorized [id number] Closed 04/10/2018 10/20/2019 1 1 Encounter Details Date Type Department Care Team (Late st Contact Info) Description 04/10/2018 11:56 AM SQUASH CENTRE MANAGER - 04/10/2018 11:59 PM SQUASH CENTRE MANAGER Hospital Encounter [facility] [address] [place] [address] Rachel Peace, WET WASH ASSEMBLER [address] [place] [address] Korey Randolph MD [address] [place] [address] [address] [place] [address] Lower respiratory infection Discharge Disposition: Discharge to home or self care Social History Tobacco Use Types Packs/Day Years Used Date Smoking Tobacco: Never Smokeless Tobacco: Never Comments Unknown Sex and Gender Information Value Date Recorded Sex Assigned at Not on file Legal Sex Female 11:27 PM SQUASH CENTRE MANAGER Gender Identity Female 08/18/2019 3:36 PM CDT Sexual Orientation Straight 08/18/2019 3: 35 PM CDT documented as of this encounter Medications at Time of Discharge cholecalciferol (VITAMIN D-3) 1,000 unit capsule Take by mouth daily multivitamin with minerals tablet Take 1 tablet by mouth daily vitamin E 400 unit capsule Take 1 capsule (400 Units total) by mouth daily azithromycin (ZITHROMAX) 250 mg tablet Take 2 tabs (500 mg) by mouth today, than 1 tab (250 mg) daily for 4 days. 6 tablet 04/10/2018 9 albuterol HFA (PROAIR HFA) 90 mcg/actuation inhaler Inhale 2 puffs every 4 (four) hours as needed for wheezing or shortness of breath. 8.5 g 04/10/2018 9 aspirin 81 mg tablet Take 81 mg by mouth daily. 1 atorvastatin (LIPITOR) 10 mg tablet Take 10 mg by mouth daily. 9 cyanocobalamin, vitamin B-12, (CYANOCOBALAMIN, VIT B-12,,BULK,) powder Take 2 capsules by mouth daily 3 methylPREDNISolo ne (MEDROL DOSEPACK) 4 mg Dosepack Take as directed on package. 21 tablet 04/10/2018 9 mupirocin (BACTROBAN) 2 % ointment Apply topically 3 (three) times a day. To nasal passage 22 g 3 06/14/2017 9 omega 1-gbl-jwx-fish oil (FISH OIL) 60-90-500 mg capsule Take by mouth. [address] (PROTONIX) 40 mg EC tablet Take 1 tablet (40 mg total) by mouth 2 (two) times a day. 60 tablet 11 06/21/2017 9 documented as of this encounter Discharge Disposition Disposition Code Departure Means Destination Discharge to home or self care documented in this encounter Progress Notes * Rachel Peace NP - 04/10/2018 1:43 PM CST Please call patient and let her know that her chest x-ray was negative for pneumonia. I would recommend continuing management recommended office is likely acute bronchitis. Will follow-up on Monday to see how she is doing overall. Thank you SH CENTRE MANAGER documented in this encounter Plan of Treatment Not on file documented as of this encounter Procedures Procedure Name Priority Date/Time Associated Diagnosis Comments XR CHEST PA LATERAL 2 VIEWS Schedule Routine, Read Routine (OP Routine) 04/10/2018 12:26 PM SQUASH CENTRE MANAGER Lower respiratory infection documented in this encounter Results * XR Chest Pa Lateral 2 Vw (04/10/2018 12:26 PM SQUASH CENTRE MANAGER) Anatomical Region Laterality Modality Body, Chest N/A Computed Radiogr aphy 04/10/2018 1:35 PM SQUASH CENTRE MANAGER Impressions 04/10/2018 1:39 PM SQUASH CENTRE MANAGER 1. ??No active disease seen. 2. ??No significant change compared to 06/25/2015. Electronically signed by: Montez Yip Jr., M.D. Narrative 04/10/2018 1:39 PM SQUASH CENTRE MANAGER XR CHEST PA LATERAL 2 VIEWS HISTORY: [...] Electronically signed by: Montez Yip Jr., M.D. Rachel Peace WET WASH ASSEMBLER IMG XR PROCEDURES Final Resu lt documented in this encounter Visit Diagnoses Diagnosis Lower respiratory infection Other diseases of respiratory system, not elsewhere classified documented in this encounter Care Teams Retail Operations Specialist Relationship Specialty Start Date End Date Korey Randolph MD PCP - General Internal Medicine 05/23/17 documented as of this encounter
--- OUTSIDE RECORDS SUMMARY | 2024-04-07 05:40 | XMS_ITS | Encounter Summary ---
Author Organization [facility] Address [address] [place] [address] Care Team Providers Care Secondary Market Manager Name Role Phone Korey Randolph MD Primary Care Provider Reason for Visit * Reason Comments Medicare Wellness Encounter Details Date Type Department Care Team (Late st Contact Info) Description 06/14/2017 9:45 AM CDT Office Visit [facility] [address] [place] [address] Korey Randolph MD [address] [place] [address] [address] [place] [address] Medicare annual wellness visit, subsequent (Primary Dx); BMI 30.0-30.9,adult; Gastroesophageal reflux disease without esophagitis; Esophageal stricture; Mixed hyperlipidemia; Macular degeneration, dry; Acute non-recurrent sinusitis, unspecified location Social History Tobacco Use Types Packs/Day Years Used Date Smoking Tobacco: Never Smokeless Tobacco: Never Comments Unknown Sex and Gender Information Value Date Recorded Sex Assigned at Not on file 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 Gender Identity Female 08/18/2019 3:36 PM CDT Sexual Orientation Straight 08/18/2019 3: 35 PM CDT documented as of this encounter Last Filed Vital Signs Vital Sign Reading Time Taken Comments Blood Pressure 110/70 06/14/2017 9:55 AM CDT Pulse 76 06/14/2017 9:55 AM CDT Temperature - - Respiratory Rate 16 06/14/2017 9:55 AM CDT Oxygen Saturation - - Inhaled Oxygen Concentration - - Weight 64.4 kg (142 lb) 06/14/2017 9:55 AM CDT Height 144.8 cm (4' 9 ) 06/14/2017 9:55 AM CDT Body Mass Index 30.73 06/14/2017 9:55 AM CDT documented in this encounter Ordered Prescriptions Prescription Sig Dispense Quantity Refills Last Filled Start Date End Date mupirocin (BACTROBAN) 2 % ointment Apply topically 3 (three) times a day. To nasal passage 22 g 3 06/14/2017 9 documented in this encounter Progress Notes * Korey Randolph MD - 06/14/2017 9:45 AM CDT Subjective/Objective Patient ID: Meghana Dueñas is a 77 y.o. female. Chief Complaint Medicare Wellness HPI The patient is here for several issues for the main involves her nose. She has a tenderness and bleeding from her left nostril that she can't get under control. She says it can be quite profuse at times. She does not have any fever chills though. The patient sees an artificial glass eye maker at [facility] for left eye retina disease which is been fairly stable it sounds like. The patient's social issues per that she is a now having lost her last year to esophageal cancer. She likes to go walking on [email or web address] runs and she is going to be doing that several times this year. She does not smoke or drink alcohol use street drugs. She has good social support. The patient's past history includes a cholecystectomy years ago as well as a total abdominal hysterectomy and 1 ovary removed years ago for benign disease. Patient also had shingles in the past and has also had a shingles vaccine she wonders if she needs the new 1 The patient also is here for annual subsequent Medicare wellness evaluation as well. Review of Systems Constitutional: Negative for chills, [...] Negative for dysphoric mood and sleep disturbance. Vitals: 06/14/17 0955 BP: 110/70 BP Location: Left arm Patient Position: Sitting Pulse: 76 Resp: 16 Weight: 64.4 kg (142 lb) Height: 144.8 cm (4' 9 ) Physical Exam Constitutional: She is oriented to person, place, and time. She appears well- developed and well-nourished. HENT: Head: Normocephalic and atraumatic. Right Ear: External ear normal. Left Ear: External ear normal. Nose: Nose normal. Mouth/Throat: Oropharynx is clear and moist. Patient's left nostril had a bloody inflamed area and the medial portion involving the septum consistent with a staph infection with some honey-colored discharge and so forth. Was also bloody Eyes: Conjunctivae and EOM are normal. Pupils are equal, round, and reactive to light. Neck: Normal range of motion. Neck supple. Cardiovascular: Normal rate, regular rhythm, normal heart sounds and intact distal pulses. Pulmonary/Chest: Breath sounds normal. Abdominal: Soft. Bowel sounds are normal. Genitourinary: Genitourinary Comments: The breast were normal to inspection and palpation bilaterally including the lymph nodes. She is not on any hormones now but used to take them regularly Musculoskeletal: Normal range of motion. Neurological: She is alert and oriented to person, place, and time. She has normal reflexes. Skin: Skin is warm and dry. Psychiatric: She has a normal mood and affect. Nursing note and vitals reviewed. Assessment/Plan Diagnoses and all orders for this visit: Medicare annual wellness visit, subsequent (Primary) The patient's self assessment was gone over in detail. Home environment safe. Her fall risk is minimal. Her nutritional status was good although she wants to lose some weight. Her cognitive and depression screening were pretty good. She feels like she is getting through her bereavement. Reasonably well despite her 20 year marriage to her she is very fill esophageal about the situation. The patient's speech hearing and swallowing seem to be okay as well. Her vaccines she says her up-to-date. She gets them elsewhere so we do not have good documentation though so will try to get those from her pharmacy. I think she should get the new shingles vaccine if her insurance will cover it. Herprevent service checklist was gone over in detail. She gets regular mammograms and she is due for 1next week in fact. Her colonoscopy was in 2013 so she still good there for long time and she has regular contact with GI. She probably should get another bone density though although she has not had any fractures her shrinkage BMI 30.0-30.9,adult Patient's weight is stable. She knows to do our best to keep that as low as possible but she is okay right now. Gastroesophageal reflux disease without esophagitis Patient has persistent reflux that were treating with PPI therapy with good success. Her renal functions are fine so let's keep that up especially light of her stricture Esophageal stricture Patient has had multiple dilatations of her soft gel stricture over the years and is now being managed by our new rental agent. So far so good there. Mixed hyperlipidemia - Lipid panel with reflex to direct LDL; Future - Comprehensive metabolic panel; Future Patient's lipid control is just fine. Will keep her on her current regimen and she does stay away from fatty foods and keep up that exercise Macular degeneration, dry Patient has dry macular degeneration and sees a professor at [facility] and has stable diseaseit sounds like. Acute non-recurrent sinusitis, unspecified location I am going to treat this nasal infection with some topical mupirocin for 5 days and she was instructed to call if she is not completely better I chose not to get a culture since I am pretty sure thisstaph infection Other orders - mupirocin (BACTROBAN) 2 % ointment; Apply topically 3 (three) times a day. To nasal passage Side effects, risks, interactions reviewed with patient. Indications for testing discussed. Any further problems to contact us. She was told what to look out for and verbalized understanding. The patient was given the opportunity to have all questions answered today and was in agreement with the plan of care. documented in this encounter Plan of Treatment Not on file documented as of this encounter Results * Comprehensive metabolic panel (06/06/2018 8:40 AM YACHT MASTER) Sodium 144 135 - 145 mmol/L CERNER [...] CH Blood specimen (specimen) 06/06/2018 8:40 AM YACHT MASTER 06/06/2018 3:42 PM YACHT MASTER Narrative CERNER CH - 06/06/2018 4:39 PM YACHT MASTER us Korey Randolph MD LAB BLOOD ORDERABLES Fi nal Result [facility] [address] [address] Department [place] [address] documented in this encounter Visit Diagnoses Diagnosis Medicare annual wellness visit, subsequent- Primary BMI 30.0-30.9,adult Gastroesophageal reflux disease without esophagitis Esophageal reflux Esophageal stricture Stricture and stenosis of esophagus Mixed hyperlipidemia Macular degeneration, 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
--- OUTSIDE RECORDS SUMMARY | 2024-04-07 05:40 | XMS_ITS | Encounter Summary ---
Author Organization [facility] Healthcare Address [address] [place] [address] Care Team Providers Care Military Technology Manager Name Role Phone Otto Montgomery MD Primary Care Provider [phone]- [phone] Encounter Details Date Type Department Care Team (Late st Contact Info) Description 01/17/2014 9:53 AM CDT - 01/17/2014 12:50 PM CDT Hospital Encounter [facility] Alonzo Cevallos Other symptoms involving digestive system; Abdominal pain, left lower quadrant; Internal hemorrhoids Social History Tobacco Use Types Packs/Day Years Used Date Smoking Tobacco: Never Assessed Comments Unknown Sex and Gender Information Value Date Recorded Sex Assigned at Not on file 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 Admit Date: 01/17/2014 Dict.: Alonzo Hung M.D. Disch. Date: 01/17/2014 NAME OF PROCEDURE: Colonoscopy. DATE OF PROCEDURE: 01/17/14. REFERRED BY: Dr. Otto Montgomery. PREVIOUS PROCEDURE: Screening colonoscopy in the past reported as normal. X-RAYS: None. HISTORY AND PHYSICAL EXAM: The patient is a 73-year-old white female with change in bowel habits with increasing constipation and left lower quadrant abdominal pain. We have been asked to see her now for repeat endoscopic evaluation of her colon. Physical exam today is that of well-developed, well-nourished white female in no acute distress. She is nonicteric. Her lungs were clear. Heart was regular. GI was soft and supple, however, patient had tenderness with deep palpation of the left lower quadrant. No obvious masses. Extremities showed no calf pain, cords or edema. PREPROCEDURE DIAGNOSES: 1. Increasing constipation with left lower quadrant abdominal pain in a 73-year-old female. 2. Negative screening colonoscopy 8 years ago. PHYSICIAN: Alonzo Hung M.D. INSTRUMENT USED: Olympus video endoscope. MEDICATIONS: Per anesthesia. FINDINGS: Colonoscope was introduced into rectum, left lateral position, and passed to the cecum. The patient tolerated the procedure well. There were no complications. On withdrawal of the colonoscope, the mucosa appeared normal with normal vascular pattern. No polyps and no masses were noted in the cecum, right, transverse, left, rectosigmoid or rectum. Retroflexed view of the internal anal area showed small to moderate internal hemorrhoidal tissue. Perianal exam showed no perianal disease and no rectal masses. COMPLICATIONS: None. POSTPROCEDURE DIAGNOSES: 1. Normal colonoscopy to cecum with a withdrawal time of 9 minutes and 30 seconds. Preparation was excellent. 2. Constipation without obstructing lesions. 3. Left lower quadrant abdominal pain without mucosal abnormality. POSTPROCEDURE ORDERS: 1. Post-sedation instructions. 2. High fiber diet. 3. MiraLAX. 4. Check thyroid functions if not done. 5. If patient's symptoms and discomfort do not resolve with treatment, would consider CT of abdomen and pelvis to rule out other potential disease. 6. Follow up with Dr. Otto Montgomery. 7. *-*-* 8. 9. 1. Alonzo Hung M.D. CHARI/ TD: 01/18/2014 08:32 CC: Otto Montgomery M.D. Authenticated by Alonzo Hung MD On 01/25/2014 08:18:31 AM documented in this encounter Plan of Treatment Not on file documented as of this encounter Procedures Procedure Name Priority Date/Time Associated Diagnosis Comments COLONOSCOPY IMAGES 01/17/2014 COLONOSCOPY 01/17/2014 12:00 AM CDT documented in this encounter Results * COLONOSCOPY (01/17/2014 12:00 AM CDT) Anatomical Region Laterality Modality Other Narrative 01/17/2014 12:00 AM CDT Ordered by an unspecified provider. Procedure Note Provider, MD Jeremias - 01/17/2014 12:00 AM CDT PROCEDURE REPORT Patient: MEGHANA LOYA Account: [id number] Room No: : 1940 Patient Type: [facility] Attend.: Alonzo Hung M.D. Admit Date: 01/17/2014 Dict.: Alonzo Hung M.D. Disch. Date: 01/17/2014 NAME OF PROCEDURE: Colonoscopy. DATE OF PROCEDURE: 01/17/14. REFERRED BY: Dr. Otto Montgomery. PREVIOUS PROCEDURE: Screening colonoscopy in the past reported asnormal. X-RAYS: None. HISTORY AND PHYSICAL EXAM: The patient is a 73-year-old white femalewith change in bowel habits with increasing constipation and left lowerquadrant abdominal pain. We have been asked to see her now for repeat endoscopic evaluation of her colon. Physical exam today is that of well-developed, well-nourished white female in no acute distress. She is nonicteric.Her lungs were clear. Heart was regular. GI was soft and supple, however,patient had tenderness with deep palpation of the left lower quadrant. Noobvious masses. Extremities showed no calf pain, cords or edema. PREPROCEDURE DIAGNOSES: 1. Increasing constipation with left lower quadrant abdominal pain jayda 73-year-old female. 2. Negative screening colonoscopy 8 years ago. PHYSICIAN: Alonzo Hung M.D. INSTRUMENT USED: Olympus video endoscope. MEDICATIONS: Per anesthesia. FINDINGS: Colonoscope was introduced into rectum, left lateral position,and passed to the cecum. The patient tolerated the procedure well. Therewere no complications. On withdrawal of the colonoscope, the mucosa appearednormal with normal vascular pattern. No polyps and no masses were noted in thececum, right, transverse, left, rectosigmoid or rectum. Retroflexed view ofthe internal anal area showed small to moderate internal hemorrhoidaltissue. Perianal exam showed no perianal disease and no rectal masses. COMPLICATIONS: None. POSTPROCEDURE DIAGNOSES: 1. Normal colonoscopy to cecum with a withdrawal time of 9 minutesand 30 seconds. Preparation was excellent. 2. Constipation without obstructing lesions. 3. Left lower quadrant abdominal pain without mucosal abnormality. POSTPROCEDURE ORDERS: 1. Post-sedation instructions. 2. High fiber diet. 3. MiraLAX. 4. Check thyroid functions if not done. 5. If patient's symptoms and discomfort do not resolve withtreatment, would consider CT of abdomen and pelvis to rule out otherpotential disease. 6. Follow up with Dr. Otto Montgomery. 7. *-*-* 8. 9. 1. Alonzo Hung M.D. CHARI/ TD: 01/18/2014 08:32 CC: Otto Montgomery M.D. Authenticated by Alonzo Hung MD On 01/25/2014 08:18:31 AM us Historical Provider ENDOSCOPY PROCEDURES Mireya l Result * COLONOSCOPY IMAGES (01/17/2014) Anatomical Region Laterality Modality Other Narrative 01/17/2014 Ordered by an unspecified provider. us Historical Provider GI PROCEDURE ORDERABLES F inal Result documented in this encounter Visit Diagnoses Diagnosis Other symptoms involving digestive system Abdominal pain, left lower quadrant Internal hemorrhoids Internal hemorrhoids without mention of complication documented in this encounter Care Teams Military Technology Manager Relationship Specialty Start Date End Date Otto Montgomery MD [address] [place] [address] PCP - General 12/22/11 06/30/16 documented as of this encounter
--- OUTSIDE RECORDS SUMMARY | 2024-04-07 05:40 | XMS_ITS | Encounter Summary ---
Author Organization [facility] Healthcare Address [address] [place] [address] Care Team Providers Care Farm Management Agent Name Role Phone Otto Montgomery MD Primary Care Provider [phone]- [phone] Encounter Details Date Type Department Care Team (Late st Contact Info) Description 12/14/2011 7:15 AM CDT - 12/14/2011 11:35 AM CDT Hospital Encounter [facility] Parminder Joel MD [address] [place] [address] Chronic cholecystitis; Cholesterolosis of gallbladder; Esophageal reflux Social History Tobacco Use Types Packs/Day Years Used Date Smoking Tobacco: Never Assessed Comments Unknown Sex and Gender Information Value Date Recorded Sex Assigned at Not on file 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
--- OUTSIDE RECORDS SUMMARY | 2024-04-07 05:40 | XMS_ITS | Encounter Summary ---
Author Organization [facility] Address [address] [place] [address] Care Team Providers Care Slide Fastener Chain Assembler Name Role Phone Otto Montgomery MD Primary Care Provider [phone]- [phone] Encounter Details Date Type Department Care Team (Latest Contact Info) Description 07/11/2016 9:33 AM CDT - 07/11/2016 11:50 AM CDT Hospital Encounter [facility] Slim Aburto MD [address] [facility] [address] [facility] [place] [id number] Discharge Disposition: Discharge to home or self care Social History Tobacco Use Types Packs/Day Years Used Date Smoking Tobacco: Never Assessed Comments Unknown Sex and Gender Information Value Date Recorded Sex Assigned at Not on file 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 Sex 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 Gender Identity Female 08/18/2019 3:36 PM CDT Sexual Orientation Straight 08/18/2019 3: 35 PM CDT documented as of this encounter Medications at Time of Discharge pantoprazole DR (PROTONIX) 40 mg EC tablet take 1 tablet by oral route 2 times every day 60 11 06/27/2016 06/21/2017 documented as of this encounter Discharge Disposition Disposition Code Departure Means Destination Discharge to home or self care documented in this encounter Plan of Treatment Not on file documented as of this encounter Visit Diagnoses Not on filedocumented in this encounter Care Teams Slide Fastener Chain Assembler Relationship Specialty Start Date End Date Otto Montgomery MD [address] [place] [address] PCP - General 07/01/16 07/25/16 documented as of this encounter
--- OUTSIDE RECORDS SUMMARY | 2024-04-07 05:40 | XMS_ITS | Encounter Summary ---
Author Organization [facility] Healthcare Address [address] [place] [address] Care Team Providers Care Talk Show Host Name Role Phone Korey Randolph MD Primary Care Provider Encounter Details Date Type Department Care Team (Late st Contact Info) Description 05/30/2017 12:20 PM MANUFACTURING SUPERVISOR 2ND SHIFT Lab [address] [address] Mixed hyperlipidemia; Vitamin D insufficiency Social History Tobacco Use Types Packs/Day Years Used Date Smoking Tobacco: Never Comments Unknown Sex and Gender Information Value Date Recorded Sex Assigned at Not on file Legal Sex Female 11:27 PM MANUFACTURING SUPERVISOR 2ND SHIFT Gender Identity Female 08/18/2019 3:36 PM CDT Sexual Orientation Straight 08/18/2019 3: 35 PM CDT documented as of this encounter Plan of Treatment Not on file documented as of this encounter Procedures Procedure Name Priority Date/Time Associated Diagnosis Comments EGFR Routine 05/30/2017 7:57 AM MANUFACTURING SUPERVISOR 2ND SHIFT Mixed hyperlipidemia LIPID PANEL WITH REFLEX TO DIRECT LDL Routine 05/30/2017 7:57 AM MANUFACTURING SUPERVISOR 2ND SHIFT Mixed hyperlipidemia VITAMIN D 25 HYDROXY Routine 05/30/2017 7:57 AM MANUFACTURING SUPERVISOR 2ND SHIFT Vitamin D insufficiency COMPREHENSIVE METABOLIC PANEL Routine 05/30/2017 7:57 AM MANUFACTURING SUPERVISOR 2ND SHIFT Mixed hyperlipidemia documented in this encounter Results * eGFR (05/30/2017 7:57 AM MANUFACTURING SUPERVISOR 2ND SHIFT) eGFR 76 mL/min/1.7 3 m2 [facility] Comment: Interpretive Data Reference Interval Normal ?>/= 90 mL/min/1.73m2 Mildly decreased* ? 60 - 89 mL/min/1.73m2 Mildly to moderately decreased ?45 - 59 mL/min/1.73m2 Moderately to severely decreased ??30 - 44 mL/min/1.73m2 Severely decreased ?15 - 29 mL/min/1.73m2 Kidney Failure ?< 15 ??mL/min/1.73m2 *Relative to young adult level If -Somali multiply value by 1.16. Estimated glomerular filtration [...] was last reviewed 2015. Blood specimen (specimen) 05/30/2017 7:57 AM MANUFACTURING SUPERVISOR 2ND SHIFT 05/30/2017 1:24 PM MANUFACTURING SUPERVISOR 2ND SHIFT Narrative [facility] - 05/30/2017 1:47 PM MANUFACTURING SUPERVISOR 2ND SHIFT us Korey Randolph MD LAB BLOOD ORDERABLES Fi nal Result [facility] [address] [address] Department [place] [address] * (ABNORMAL) Vitamin D 25 hydroxy (05/30/2017 7:57 AM MANUFACTURING SUPERVISOR 2ND SHIFT) Vitamin D 25-OH 27(L) 30 - 80 ng/mL [facility] Blood specimen (specimen) 05/30/2017 7:57 AM MANUFACTURING SUPERVISOR 2ND SHIFT 05/30/2017 1:14 PM MANUFACTURING SUPERVISOR 2ND SHIFT Narrative CARYN - 05/30/2017 2:36 PM MANUFACTURING SUPERVISOR 2ND SHIFT us Korey Randolph MD LAB BLOOD ORDERABLES Fi nal Result [facility] [id number] [address] Department [place] [address] * Lipid panel with reflex to direct LDL (05/30/2017 7:57 AM MANUFACTURING SUPERVISOR 2ND SHIFT) Cholesterol 149 100 - 200 mg/dL [facility] Comment: Interpretive Data Desirable: ?<200 mg/dL Borderline high: ??200-239 mg/dL High: ? >240 mg/dL Current interpretive data was last revised on 2015. Triglycerides 62 10 - 150 mg/dL [facility] Comment: Interpretive Data Desirable: ? < 150 ? mg/dL Borderline High: ? 150 - 199 mg/dL High: ?200 - 499 mg/dL Very High: ? > or = 499 ??mg/dL Current interpretive data was last revised on 2015. HDL 56 40 - 59 mg/dL [facility] Comment: Interpretive Data Less than 40 mg/dL - Low; A major risk factor for heart disease. Greater than or equal to 60 mg/dL - High; ??Considered protective of heart disease. Current interpretive data was last revised on 2015. LDL, calculated 81 60 - 129 mg/dL [facility] Comment: Interpretive Data Optimal: ? < 100 mg/dL Near Optimal: ?100 - 129 mg/dL Borderline High: ?? 130 - 159 mg/dL High: ?> 160 mg/dL Current interpretive data was last revised on 2015. Chol/HDL ratio 3 mg/dL [facility] Blood specimen (specimen) 05/30/2017 7:57 AM MANUFACTURING SUPERVISOR 2ND SHIFT 05/30/2017 1:14 PM MANUFACTURING SUPERVISOR 2ND SHIFT Narrative [facility] - 05/30/2017 1:47 PM MANUFACTURING SUPERVISOR 2ND SHIFT us Korey Randolph MD LAB BLOOD ORDERABLES Fi nal Result [facility] [address] [address] Department [place] [address] * Comprehensive metabolic panel (05/30/2017 7:57 AM MANUFACTURING SUPERVISOR 2ND SHIFT) Sodium 143 135 - 145 mmol/L [facility] Potassium, pl 3.8 3.5 - 5.1 mmol/L [facility] CO2 27 22 - 32 mmol/L [facility] BUN 16 8 - 24 mg/dL [facility] Glucose 95 70 - 199 mg/dL [facility] Comment: [...] Current interpretive data was last revised 2017. Creatinine 0.76 0.60 - 1.30 mg/dL [facility] Calcium 9.4 8.4 - 10.5 mg/dL [facility] Chloride 108 100 - 114 mmol/L [facility] Albumin 4.0 3.2 - 4.8 g/dL [facility] AST 23 7 - 40 Units/L [facility] ALT 30 1 - 45 Units/L [facility] Alk phos 60 30 - 110 Units/L [facility] Bilirubin, total 0.50 0.10 - 1.30 mg/dL [facility] Protein, pl 6.2 6.0 - 8.3 g/dL [facility] Anion gap 12 8 - 16 mmol/L [facility] Blood specimen (specimen) 05/30/2017 7:57 AM MANUFACTURING SUPERVISOR 2ND SHIFT 05/30/2017 1:14 PM MANUFACTURING SUPERVISOR 2ND SHIFT Narrative [facility] SUAD - 05/30/2017 1:47 PM MANUFACTURING SUPERVISOR 2ND SHIFT us Korey Randolph MD LAB BLOOD ORDERABLES Fi nal Result [facility] [address] [address] Department [place] [address] documented in this encounter Visit Diagnoses Diagnosis Mixed hyperlipidemia Vitamin D insufficiency documented in this encounter Care Teams Talk Show Host Relationship Specialty Start Date End Date Korey Randolph MD PCP - General Internal Medicine 05/23/17 documented as of this encounter
--- OUTSIDE RECORDS SUMMARY | 2024-04-07 05:40 | XMS_ITS | Encounter Summary ---
Author Organization [facility] Medical Group Address [address] [place] [address] Care Team Providers Care Ironing Pleater Name Role Phone Korey Randolph MD Primary Care Provider Encounter Details Date Type Department Care Team (Late st Contact Info) Description 06/04/2018 Orders Only [place] [facility] [address] [place] [address] Korey Randolph MD [address] [place] [address] [address] [place] [address] Mixed hyperlipidemia (Primary Dx) Social History Tobacco Use Types Packs/Day Years Used Date Smoking Tobacco: Never Smokeless Tobacco: Never Comments Unknown Sex and Gender Information Value Date Recorded Sex Assigned at Not on file Legal Sex Female 11:27 PM ASSISTANT MANAGER/EMBALMER Gender Identity Female 08/18/2019 3:36 PM CDT Sexual Orientation Straight 08/18/2019 3: 35 PM CDT documented as of this encounter Plan of Treatment Not on file documented as of this encounter Results * Lipid panel (06/06/2018 8:40 AM ASSISTANT MANAGER/EMBALMER) Cholesterol 183 30 - 199 mg/dL [facility] Comment: [...] on 2017. HDL 61 >=40 mg/dL [facility] Comment: Interpretive Data [...] 2017. LDL, calculated 109 <=129 mg/dL [facility] Comment: Interpretive Data Ages [...] on 2017. Non-HDL Cholesterol 122 mg/dL [facility] Comment: Interpretive Data Ages < [...] Chol/HDL ratio 3 [facility] Blood specimen (specimen) 06/06/2018 8:40 AM ASSISTANT MANAGER/EMBALMER 06/06/2018 3:42 PM ASSISTANT MANAGER/EMBALMER Narrative [facility] - 06/06/2018 4:40 PM ASSISTANT MANAGER/EMBALMER us Korey Randolph MD LAB BLOOD ORDERABLES Fi nal Result Performing Organization Address City/State/[facility] [place] Phone Number [facility] [address] [address] Department [place] [address] documented in this encounter Visit Diagnoses Diagnosis Mixed hyperlipidemia- Primary Mixed hyperlipidemia documented in this encounter Care Teams Ironing Pleater Relationship Specialty Start Date End Date Korey Randolph MD PCP - General Internal Medicine 05/23/17 documented as of this encounter
--- OUTSIDE RECORDS SUMMARY | 2024-04-07 05:40 | XMS_ITS | Encounter Summary ---
Author Organization [facility] Healthcare Address [address] [place] [address] Care Team Providers Care Winch Derrick Operator Name Role Phone Unavailable Primary Care Provider Unavailabl e Encounter Details Date Type Department Care Team (Late st Contact Info) Description 10/06/2011 7:08 AM CDT - 10/06/2011 10:15 AM CDT Hospital Encounter [facility] Hung, Alonzo Hilliard Esophageal reflux; Dysphagia Social History Tobacco Use Types Packs/Day Years Used Date Smoking Tobacco: Never Assessed Comments Unknown Sex and Gender Information Value Date Recorded Sex Assigned at Not on file Legal Sex Female 11:27 PM 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
--- OUTSIDE RECORDS SUMMARY | 2024-04-07 05:40 | XMS_ITS | Encounter Summary ---
Author Organization [facility] Healthcare Address [address] [place] [address] Care Team Providers Care Analytical Tech Name Role Phone Otto Montgomery MD Primary Care Provider [phone]- [phone] Encounter Details Date Type Department Care Team (Late st Contact Info) Description 06/25/2015 12:55 PM CDT - 06/25/2015 5:16 PM CDT Hospital Encounter [facility] Saranya Bucio MD [address] [place] [address] [place] [address] Acute bronchitis; Pure hypercholesterolemia ; Gastro-esophageal reflux disease without esophagitis; Allergy status to other drugs, medicaments and biological substances status Social History Tobacco Use Types Packs/Day Years Used Date Smoking Tobacco: Never Assessed Comments Unknown Sex and Gender Information Value Date Recorded Sex Assigned at Not on file Legal Sex Female 11:27 PM THREAD WEAVER Gender Identity Female 08/18/2019 3:36 PM CDT Sexual Orientation Straight 08/18/2019 3: 35 PM CDT documented as of this encounter Plan of Treatment Not on file documented as of this encounter Procedures Procedure Name Priority Date/Time Associated Diagnosis Comments CT CHEST W CONTRAST Routine 06/25/2015 4 :35 PM CDT BLOOD CULTURE, CDR Routine 06/25/2015 2: 45 PM CDT XR CHEST PA LATERAL 2 VIEWS Routine 06/25/2015 2:05 PM CDT BLOOD CULTURE, CDR Routine 06/25/2015 1: 25 PM CDT SERUM LIPASE Routine 06/25/2015 1:25 PM CDT SERUM ESTIMATED GLOMERULAR FILTRATION RATE Routine 06/25/2015 1:25 PM CDT SERUM AMYLASE Routine 06/25/2015 1:25 PM CDT PLASMA COMPREHENSIVE METABOLIC PANEL Routine 06/25/2015 1:25 PM CDT NASOPHARYNGEAL MUCUS INFLUENZA A, B AG Routine 06/25/2015 1:25 PM CDT BLOOD D-DIMER Routine 06/25/2015 1:25 PM CDT BLOOD CELL COUNT (CBC), MORPHOLOGIC EXAM Routine 06/25/2015 1:25 PM CDT BLOOD CELL MORPHOLOGIC EXAM Routine 06/25/2015 1:25 PM CDT DISCHARGE LABORATORY CUMULATIVE REPORT 06/25/2015 documented in this encounter Results * CT Chest W Contrast (06/25/2015 4:35 PM CDT) Anatomical Region Laterality Modality Body N/A Computed Tomogra phy 06/25/2015 4:35 PM CDT Narrative 06/25/2015 8:[address] Chest PE W ?[id number] ??Acc#: ??[id number] DATE OF EXAM: ??Jun 25 2015 CLINICAL HISTORY: Shortness of breath. RESULT: A PE protocol chest CT was performed utilizing 100 ml Optiray 320. No filling defects are noted in the pulmonary arteries to indicate pulmonary embolism. ??Calcified pleural plaque is noted in the right upper lung extending into the apex. ??Mild bronchiectasis is noted bilaterally. Linear atelectasis and scarring is seen in both lung bases. ??No suspicious pulmonary nodules are noted. ??No pneumothorax or pleural effusion is present. ??The heart appears overall normal in size. ??No obvious mediastinal, hilar, or axillary lymphadenopathy is seen. IMPRESSION: 1. NO PULMONARY EMBOLISM. 2. BRONCHIECTASIS. 3. SCARRING AND FIBROSIS IN THE LUNG BASES. Results were reported to Dr. Bucio in the ER at 1637 on 06/25/15. Interpreting Physician: ??KAMLESH CUELLO M.D. ??Read on: ??Jun 25 2015 4:58P Transcribed by: ??stanely ??On: Jun 25 2015 ??6:54P Approved Electronically by: ??KAMLESH CUELLO M.D. ??on: ??Jun 25 2015 8:05P Attending: ??SARANYA BUCIO Requesting: ??LEI MONTGOMERY Requesting Fax: ??-- Attending Fax: ??-- Attending ID: ??[id number] Requesting ID: ??[id number] Report To 1 ID: ??[id number] Report To 1 Name: ??SARANYA BUCIO Report To 1 FAX: ??-- NextGen Order #: Procedure Note Provider, MD Jeremias - 07/31/2016 CT Chest PE W [id number] Acc#: [id number] DATE OF EXAM: Jun 25 2015 CLINICAL HISTORY: Shortness of breath. RESULT: A PE protocol chest CT was performed utilizing 100 ml Optiray 320. Nofilling defects are noted in the pulmonary arteries to indicate pulmonaryembolism. Calcified pleural plaque is noted in the right upper lungextending into the apex. Mild bronchiectasis is noted bilaterally. Linearatelectasis and scarring is seen in both lung bases. No suspiciouspulmonary nodules are noted. No pneumothorax or pleural effusion ispresent. The heart appears overall normal in size. No obviousmediastinal, hilar, or axillary lymphadenopathy is seen. IMPRESSION: 1. NO PULMONARY EMBOLISM. 2. BRONCHIECTASIS. 3. SCARRING AND FIBROSIS IN THE LUNG BASES. Results were reported to in the ER at 1637 on 06/25/15. Interpreting Physician: KAMLESH CUELLO M.D. Read on: Jun 25 20154:58P Transcribed by: stanley On: Jun 25 2015 6:54P Approved Electronically by: KAMLESH CUELLO M.D. on: Jun 25 20158:05P Attending: SARANYA BUCIO Requesting: LEI MONTGOMERY Requesting Fax: -- Attending Fax: -- Attending ID: [id number] Requesting ID: [id number] Report To 1 ID: [id number] Report To 1 Name: SARANYA BUCIO Report To 1 FAX: -- NextGen Order #: Historical Provider IMG CT PROCEDURES Final R esult * Blood culture (06/25/2015 2:45 PM CDT) Blood specimen (specimen) (Antecubital, right) 06/25/2015 2:45 PM CDT Impressions HISTORICAL RESULTS - 06/30/2015 4:00 PM CDT Blood cultures are monitored continuously for 5 days (120 hours). The first negative report is issued within 24 hours of receipt in the laboratory. ??All positive cultures are called as soon as they are detected. Narrative HISTORICAL RESULTS - 06/30/2015 4:00 PM CDT No growth on day 5. Historical Provider LAB MICROBIOLOGY - GENERA L ORDERABLES Final Result HISTORICAL RESULTS * XR Chest PA Lateral 2 View (06/25/2015 2:05 PM CDT) Anatomical Region Laterality Modality Body, Chest N/A Radiographic Porsche ging 06/25/2015 2:05 PM CDT Narrative 06/25/2015 11:59 PM CDT XR Chest 2 Views ?[id number] ??Acc#: ??[id number] DATE OF EXAM: ??Jun 25 2015 CLINICAL HISTORY: Shortness of breath. ??Nonsmoker. RESULT: Erect PA and lateral views are compared to exam on September 12. Heart size and pulmonary vascularity are normal. ??Thoracic aorta is arteriosclerotic, but not dilated. ??No pulmonary infiltrate, mass or pleural effusion is seen. ??Minimal spurring is noted in the thoracic spine. IMPRESSION: 1. NO ACTIVE DISEASE SEEN. 2. NO SIGNIFICANT CHANGE SINCE SEPTEMBER 12. Interpreting Physician: ??DR NORY CORREA M.D. ??Read on: ??Jun 25 2015 3:33P Transcribed by: ??stanley ??On: Jun 25 2015 ??4:44P Approved Electronically by: ??MADELINE Lipscomb, DR CUETO ??on: ??Jun 25 2015 11:59P Attending: ??SARANYA BUCIO Requesting: ??LEI MONTGOMERY Requesting Fax: ??-- Attending Fax: ??-- Attending ID: ??[id number] Requesting ID: ??[id number] Report To 1 ID: ??[id number] Report To 1 Name: ??SARANYA BUCIO Report To 1 FAX: ??-- NextGen Order #: Procedure Note Provider, Jeremias, - 07/31/2016 XR Chest 2 Views [id number] Acc#: [id number] DATE OF EXAM: Jun 25 2015 CLINICAL HISTORY: Shortness of breath. Nonsmoker. RESULT: Erect PA and lateral views are compared to exam on September 12. Heart sizeand pulmonary vascularity are normal. Thoracic aorta is arteriosclerotic,but not dilated. No pulmonary infiltrate, mass or pleural effusion isseen. Minimal spurring is noted in the thoracic spine. IMPRESSION: 1. NO ACTIVE DISEASE SEEN. 2. NO SIGNIFICANT CHANGE SINCE SEPTEMBER 12. Interpreting Physician: DR NORY CORREA M.D. Read on: Jun 25 20153:33P Transcribed by: stanley On: Jun 25 2015 4:44P Approved Electronically by: DR NORY CORERA M.D. on: Jun 25 201511:59P Attending: SARANYA BUCIO Requesting: LEI MONTGOMERY Requesting Fax: -- Attending Fax: -- Attending ID: [id number] Requesting ID: [id number] Report To 1 ID: [id number] Report To 1 Name: FORTUNATO SARANYA Report To 1 FAX: -- NextGen Order #: us Historical Provider MD DIAZ XR PROCEDURES Final R esult * Nasopharyngeal mucus Influenza A, B ag (06/25/2015 1:25 PM CDT) Influ A ag, nasopharyngeal Negative Negative HISTORICAL RESULTS Comment: Interpretive Data The results of this procedure whether positive or negative are presumptive. Current interpretive data was last revised on 2013. Influ B ag, nasopharyngeal Negative Negative HISTORICAL RESULTS Nasopharynx swab 06/25/2015 1:25 PM CDT Historical Provider MD LAB BLOOD ORDERABLES Mireya l Result HISTORICAL RESULTS * Serum lipase (06/25/2015 1:25 PM CDT) Lip 38 10 - 70 Units/L HISTORICAL RESULTS Serum 06/25/2015 1:25 PM CDT [facility] Provider MD LAB BLOOD ORDERABLES Mireya l Result Performing Organization Address City/[facility]/ZIP Co de Phone Number HISTORICAL RESULTS * Serum amylase (06/25/2015 1:25 PM CDT) Earnestine, pl 83 30 - 100 Units/L HISTORICAL RESULTS Serum 06/25/2015 1:25 PM CDT Result [facility] Provider MD LAB BLOOD ORDERABLES Mireya l Result Performing Organization Address City/[facility]/ZIP Co de Phone Number HISTORICAL RESULTS * (ABNORMAL) Plasma comprehensive metabolic panel (06/25/2015 1:25 PM CDT) Sodium 140 135 - 145 mmol/L HISTORICAL RESULTS K, pl 3.4(L) 3.5 - 5.1 mmol/L HISTORICAL RESULTS Chloride 105 97 - 110 mmol/L HISTORICAL RESULTS CO2 23 22 - 32 mmol/L HISTORICAL RESULTS A. gap 15 8 - 16 mmol/L HISTORICAL RESULTS Glucose 101 70 - 199 mg/dl HISTORICAL RESULTS Comment: Interpretive Data Note:The glucose is assumed non fasting Fastin-99 mg/dL Random: ??70-199 mg/dL Either a fasting glucose > 126 mg/dL or a random glucose > 200 mg/dL plus symptoms is diagnostic of diabetes when confirmed on another day. Fasting values > 100 mg/dL but < 125 mg/dL are diagnostic of impaired fasting glucose. Current interpretive data was last revised on 2014. BUN 12.2 8.0 - 25.0 mg/dl HISTORICAL RESULTS Creatinine 0.70 0.60 - 1.10 mg/dl HISTORICAL RESULTS BUN/creat ratio 17 10 - 20 HIST ORICAL RESULTS Calcium 8.9 8.6 - 10.2 mg/dl HISTORICAL RESULTS Protein, sr 6.3 6.0 - 8.4 g/dl HISTORICAL RESULTS Alb 4.1 3.6 - 5.0 g/dl HISTORICAL RESULTS Alb/glob ratio 1.9(H) 1.1 - 1.8 ratio HISTORICAL RESULTS Alk phos 58 40 - 130 Units/L HISTORICAL RESULTS ALT 36 5 - 45 Units/L HISTORICAL RESULTS AST 20 10 - 40 Units/L HISTORICAL RESULTS Bilirubin 0.4 <=1.2 mg/dl HISTORICAL RESULTS Plasma 06/25/2015 1:25 PM CDT Result [facility] Historical Provider LAB BLOOD ORDERABLES Mireya de santiago Result Performing Organization Address [facility] de Phone Number HISTORICAL RESULTS * (ABNORMAL) Blood cell morphologic exam (06/25/2015 1:25 PM CDT) Neutrophils 81.2(H) 44.0 - 80.0 % HISTORICAL RESULTS Immature granulocytes 0.3 0.0 - 1.0 % HISTORICAL RESULTS Lymphocytes 9.4(L) 13.0 - 44.0 % HISTORICAL RESULTS Monos 8.3 2.0 - 11.0 % HISTORICAL RESULTS Eosinophils 0.4 0.0 - 6.0 % HISTORICAL RESULTS Basophils 0.4 0.0 - 3.0 % HISTORICAL RESULTS Neutrophils, abs 6.0 1.6 - 7.0 K/cumm HISTORICAL RESULTS Immature granulocyte, abs 0.02 0.00 - 0.20 K/cumm HISTORICAL RESULTS Lymphocytes, abs 0.7 0.5 - 4.3 K/cumm HISTORICAL RESULTS Monocytes, absolute 0.6 0.1 - 1.0 K/cumm HISTORICAL RESULTS Eosinophils, abs 0.0 0.0 - 0.6 K/cumm HISTORICAL RESULTS Basophils, abs 0.0 0.0 - 0.3 K/cumm HISTORICAL RESULTS Blood specimen (specimen) 06/25/2015 1:25 PM CDT Historical Provider LAB BLOOD ORDERABLES Mireya de santiago Result Performing Organization Address City/[facility]/ZIP Co de Phone Number HISTORICAL RESULTS * Blood cell count (CBC), morphologic exam (06/25/2015 1:25 PM CDT) WBC 7.4 3.8 - 9.8 K/cumm HISTORICAL RESULTS RBC 4.24 3.90 - 5.00 M/cumm HISTORICAL RESULTS Hgb 13.5 12.1 - 15.1 g/dl HISTORICAL RESULTS Hct 40.0 36.1 - 44.3 % HISTORICAL RESULTS MCV 94.3 80.0 - 100.0 fl HISTORICAL RESULTS MCH 31.8 26.7 - 33.7 pg HISTORICAL RESULTS MCHC 33.8 32.7 - 36.0 g/dl HISTORICAL RESULTS Rdw 13.1 11.5 - 14.6 % HISTORICAL RESULTS Platelets 173 140 - 440 K/cumm HISTORICAL RESULTS MPV 11.3 8.0 - 12.0 fl HISTORICAL RESULTS NRBC 0.0 0.0 - 0.0 % HISTORIC AL RESULTS NRBC, abs 0.00 0.00 - 0.00 K/cumm HISTORICAL RESULTS Blood specimen (specimen) 06/25/2015 1:25 PM CDT us Historical Provider LAB BLOOD ORDERABLES Mireya de santiago Result HISTORICAL RESULTS * Serum estimated glomerular filtration rate (06/25/2015 1:25 PM CDT) eGFR >60 ml/min/1.7 3 m2 HISTORICAL RESULTS Comment: Interpretation of Estimated GFR (eGFR): Normal ?>/= 60 mL/min/1.73m2 Possible Chronic Kidney Disease ??15 - 59 mL/min/1.73m2 Possible Kidney Failure ?< 15 ??mL/min/1.73m2 If -[place] multiply value by 1.16. ??Estimated glomerular filtration rate is determined by the CKD-EPI equation recommended by the National Kidney Foundation (KDIGO 2012 Clinical Practice Guideline for the Evaluation and Management of Chronic Kidney Disease. ??Kidney Intnl Suppl Apr 2012;3:1). ??The CKD-EPI equation should not be used in acute renal failure or acute kidney injury and is not valid in children. Serum 06/25/2015 1:25 PM CDT [facility] Provider MD LAB BLOOD ORDERABLES Mireya l Result Performing Organization Address [facility] de Phone Number HISTORICAL RESULTS * (ABNORMAL) Blood D-dimer (06/25/2015 1:25 PM CDT) D-dimer 418(H) 150 - 230 ng/ml D-DU HISTORICAL RESULTS Comment: Interpretive Data This D-dimer test is approved by the FDA to exclude suspected PE and DVT in outpatients when the result is <230 ng/mL in conjunction with a pre-test probability score of low or moderate using the Wells criteria. Current Interpretive Data was last revised on 2014. Blood specimen (specimen) 06/25/2015 1:25 PM CDT Result [facility] Provider MD LAB BLOOD ORDERABLES Mireya l Result Performing Organization Address [facility] de Phone Number HISTORICAL RESULTS * Blood culture (06/25/2015 1:25 PM CDT) Blood specimen (specimen) (Forearm, right) 06/25/2015 1:25 PM CDT Impressions HISTORICAL RESULTS - 06/30/2015 4:00 PM CDT Blood cultures are monitored continuously for 5 days (120 hours). The first negative report is issued within 24 hours of receipt in the laboratory. ??All positive cultures are called as soon as they are detected. Narrative HISTORICAL RESULTS - 06/30/2015 4:00 PM CDT No growth on day 5. [facility] Provider MD LAB MICROBIOLOGY - GENERA L ORDERABLES Final Result Performing Organization Address [facility] de Phone Number HISTORICAL RESULTS * DISCHARGE LABORATORY CUMULATIVE REPORT (06/25/2015) Narrative 06/25/2015 Ordered by an unspecified provider. [facility] Provider LAB BLOOD ORDERABLES Mireya l Result documented in this encounter Visit Diagnoses Diagnosis Acute bronchitis Pure hypercholesterolemia Gastro-esophageal reflux disease without esophagitis Allergy status to other drugs, medicaments and biological substances status documented in this encounter Care Teams Analytical Tech Relationship Specialty Start Date End Date Otto Montgomery MD [address] [place] [address] PCP - General 12/22/11 06/30/16 documented as of this encounter
--- OUTSIDE RECORDS SUMMARY | 2024-04-07 05:40 | XMS_ITS | Encounter Summary ---
Author Organization [facility] Healthcare Address [address] [place] [address] Care Team Providers Care Manager Cost Name Role Phone Unavailable Primary Care Provider Unavailabl e Encounter Details Date Type Department Care Team (Late st Contact Info) Description 11/21/2011 9:33 AM CDT - 11/21/2011 11:59 PM CDT Hospital Encounter [facility] Abdominal pain, epigastric; Abdominal pain, right upper quadrant; Abnormal levels of other serum enzymes Social History Tobacco Use Types Packs/Day Years Used Date Smoking Tobacco: Never Assessed Comments Unknown Sex and Gender Information Value Date Recorded Sex Assigned at Not on file 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
--- OUTSIDE RECORDS SUMMARY | 2024-04-07 05:40 | XMS_ITS | Encounter Summary ---
Author Organization [facility] Healthcare Address [address] [place] [address] Care Team Providers Care Rebar Worker Name Role Phone Otto Montgomery MD Primary Care Provider +1- [phone] Encounter Details Date Type Department Care Team (Late st Contact Info) Description 03/24/2015 1:46 PM WATER SYSTEMS ENGINEER - 05/08/2015 11:59 PM WATER SYSTEMS ENGINEER Hospital [facility] Parminder Rizzo MD [address] [place] [address] Lesion of shoulder Social History Tobacco Use Types Packs/Day Years Used Date Smoking Tobacco: Never Assessed Comments Unknown Sex and Gender Information Value Date Recorded Sex Assigned at Not on file 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
--- OUTSIDE RECORDS SUMMARY | 2024-04-07 05:40 | XMS_ITS | Encounter Summary ---
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
--- OUTSIDE RECORDS SUMMARY | 2024-04-07 05:40 | XMS_ITS | Encounter Summary ---
Author Organization [facility] Address [address] [place] [address] Care Team Providers Care Driver Messenger Name Role Phone Korey Randolph MD Primary Care Provider Encounter Details Date Type Department Care Team (Late st Contact Info) Description 06/19/2017 Telephone [place] [facility] [address] [facility] [address] [place] [address] Korey Randolph MD [address] [place] [address] [address] [place] [address] Social History Tobacco Use Types Packs/Day Years Used Date Smoking Tobacco: Never Smokeless Tobacco: Never Comments Unknown Sex and Gender Information Value Date Recorded Sex Assigned at Not on file Legal Sex 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 documented in this encounter Plan of Treatment Not on file documented as of this encounter Procedures Procedure Name Priority Date/Time Associated Diagnosis Comments HM MAMMOGRAPHY Routine 06/16/2017 documented in this encounter Results * MAMMOGRAPHY (06/16/2017) Mammogram Unknown us Historical Provider HEALTH MAINTENANCE Final Result documented in this encounter Visit Diagnoses Not on filedocumented in this encounter Care Teams Driver Messenger Relationship Specialty Start Date End Date Korey Randolph MD PCP - General Internal Medicine 05/23/17 documented as of this encounter
--- OUTSIDE RECORDS SUMMARY | 2024-04-07 05:40 | XMS_ITS | Encounter Summary ---
Author Organization [facility] Healthcare Address [address] [place] [address] Care Team Providers Care Interior Wall Assembler Name Role Phone Otto Montgomery MD Primary Care Provider +1- [phone] Encounter Details Date Type Department Care Team (Late st Contact Info) Description 12/12/2011 12:47 PM CDT - 12/12/2011 11:59 PM CDT Hospital Encounter [facility] Parminder Joel MD [address] [place] [address] [place] [id number] Pre-operative examination Social History Tobacco Use Types Packs/Day Years Used Date Smoking Tobacco: Never Assessed Comments Unknown Sex and Gender Information Value Date Recorded Sex Assigned at Not on file 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
--- OUTSIDE RECORDS SUMMARY | 2024-04-07 05:43 | XMS_ITS | Encounter Summary ---
Author Organization [facility] Address [address] [place] [address] Care Team Providers Care Counterintelligence Specialist Name Role Phone Korey Randolph MD Primary Care Provider [phone] Reason for Visit * Auth/Cert (Routine) Specialty Diagnoses / Procedures Referred By Larryac t Referred To Contact Perioperative Diagnoses SPINAL STENOSIS WITH NEUROGENIC CLAUDICATION Procedures NC POSTERIOR NON-SEGMENTAL INSTRUMENTATION NC ALLOGRAFT FOR SPINE SURGERY ONLY MORSELIZED NC SANCHEZ FACETECTOMY & FORAMOTOMY 1 VRT SGM LUMBAR NC ARTHRODESIS POSTERIOR/PSTLAT TQ 1NTRSPC LUMBAR NC BONE MARROW ASPIRATION BONE GRFG SPI SURG ONLY L4-5 LAMINECTOMY, POSTERIOR SPINAL FUSION Carl Dorado MD [address] [place] [phone] [facility] Operating Room [address] [place] [address] Referral ID Status Reason Start Date Expiration Date Visits Re quested Visits Authorized [id number] 1 1 Encounter Details Date Type Department Care Team (Latest Contact Info) Description 07/24/2023 9:11 AM CDT - 07/26/2023 6:16 PM CDT Hospital Encounter [facility] [address] [place] [address] Carl Dorado MD [address] [place] [address] Degenerative spondylolisthesis Discharge Disposition: Home or Self Care Social History Tobacco Use Types Packs/Day Years Used Date Smoking Tobacco: Never Smokeless Tobacco: Never Alcohol Use Standard Drinks/Week Comments Never 0 (1 standard drink = 0.6 oz pur e alcohol) Feeling Safe Answer Date Recorded Are you in a relationship wi th someone who hurts you emotionally and/or physically? No 07/24/2023 Sex and Gender Information Value Date Recorded Sex Assigned at Not on file Gender Identity Not on file Sexual Orientation Not on file documented as of this encounter Last Filed Vital Signs Vital Sign Reading Time Taken Comments Blood Pressure 141/38 07/26/2023 4:29 PM CDT Pulse 97 07/26/2023 4:29 PM CDT Temperature 36.8 ??C (98.3 ??F) 07/26/2023 4:29 PM CD T Respiratory Rate 16 07/26/2023 4:29 PM CDT Oxygen Saturation 94% 07/26/2023 4:29 PM CDT Inhaled Oxygen Concentration - - Weight 64.9 kg (143 lb) 07/24/2023 9:24 AM CDT Height 144.8 cm (4' 9 ) 07/24/2023 9:24 AM CDT Body Mass Index 30.94 07/24/2023 9:24 AM CDT documented in this encounter Discharge Instructions * Discharge Instructions* Ingrid Fong RN - 07/26/2023 3:59 PM CDT HOME DISCHARGE INSTRUCTIONS AFTER NEUROSURGERY Contact physician at [phone] for: continued temperature 101 degrees or greater, chills, night sweats, unusual redness, swelling, warmth, drainage or odor from your incision, tenderness, swellingor redness in the calf muscles of either leg, weakness or numbness in your legs, increase in difficulty swallowing or if you develop bowel or bladder control problems Follow Up Appointment: Follow up two weeks post-operatively in office with Gisella NEGRETE [phone] Return to work: This will vary depending on your line of work and the surgery preformed. Follow your plan of care determined by your surgeon. Activity: restricted - No stooping, twisting, or bending of your back - No yard or heavy house work post-operatively - No heavy lifting greater than 10 lbs after surgery - Avoid all high impact, vigorous activities such as contact sports, running, jumping, etc. - Avoid prolonged upright sitting on hard surfaces or long care rides greater than three hours for 2-4 weeks after surgery - Do not sit for more than 30 minutes at a time for the first two weeks after surgery. - Avoid any activity that might result in a fall - You may resume sexual activity 2 weeks after surgery if daily activity is relatively pain free - You may drive 1 week after surgery if you are no longer taking narcotics and you are not experiencing muscle spasms. Long range travel plans must be discussed with the doctor. Dressing and Wound Care: - If your incision is closed with marko or sutures, you will come to the office for removal by the nurse 10-14 days after surgery. - Keep clean and dry. No lotions, creams, or ointments. - Remove the gauze dressing 2 days after surgery and leave the incision open to air. - Have someone inspect the wound daily for redness, swelling, or discharge. - Shower - You may shower 2 days after surgery. Your glue adhesive dressing is waterproof. Do not soak incision - No tub baths, hot tubs, swimming pools or lakes for 6 weeks. - We recommend you avoid sun tanning to the area. This is not harmful, but it does make the incision more apparent and visible in the future. Symptoms to Expect: - It is not uncommon after surgery to have mild to moderate pain, muscle spasms, numbness or tingling sensations. The inflammation from surgery can temporarily irritate the spinal nerves affecting your legs. This should subside week by week. If your pain is severe and is not relieved by pain medication, please call us at [phone] [facility] [address] [place] [id number] P [phone] F [phone] * Discharge Instr - Activity* Ingrid Fong RN - 07/26/2023 3:58 PM CDT Short frequent walks * Discharge Instr - Diet* Ingrid Fong RN - 07/26/2023 3:58 PM CDT Resume home diet documented in this encounter Medications at Time of Discharge Medication Sig Dispensed Refills Start Date End Date oxyCODONE-acetaminophen (PERCOCET) 5-325 mg tabletIndications:Degener ative spondylolisthesis Take 1-2 Tablets by mouth every 4 hours as needed. Max Daily Amount: 12 Tablets 56 Tablet 07/24/2023 tiZANidine (ZANAFLEX) 4 mg Tablet Take 1 Tablet (4 mg) by mouth every 6 hours as needed for Spasm. 90 Tablet 2 07/24/2023 oxyCODONE-acetaminophen (PERCOCET) 5-325 mg tabletIndications:Degener ative spondylolisthesis 1 to 2 tablets every 4 hours prn 90 Tablet 07/31/2023 dimenhyDRINATE (DRAMAMINE) 50 mg Tablet Take 50 mg by mouth every 6 hours as needed for Dizziness. L-LYSINE ORAL Take 1 Tablet by mouth 2 times daily as needed for Other (See Comment) (herpes mouth sores). B-complex + vitamin C (SUPER B-C) Tablet Take 1 Tablet by mouth daily. magnesium oxide 500 mg Capsule Take 500 mg by mouth daily at bedtime. ph-bar-CB-vit D-chezao-epmcgcx (PreserVision AREDS 2 Plus MV) 200 mcg-15 mcg- 5 mg-1 mg Capsule Take 1 Capsule by mouth 2 times daily. cranberry fruit concentrate (AZO CRANBERRY ORAL) Take 2 Tablets by mouth daily at bedtime. Bifidobacterium infantis (Align) 4 mg Capsule Take 8 mg by mouth daily. Filley Oil Oil Take 1 Dose by mouth daily. docusate sodium (COLACE) 50 mg capsule Take 50 mg by mouth daily. MUPIROCIN CALCIUM BOTH NOSTRIL Administer 1 Dose in each nostril 1 time daily as needed for Other (See Comment) (hx of mrsa in nares). OTHER Take 1 Tablet by mouth daily. Prevagen atorvastatin (LIPITOR) 10 mg tablet Take 1 Tablet by mouth daily at bedtime. 10/11/2022 cholecalciferol (vitamin D3) 50 mcg (2,000 unit) tablet Take 2,000 Units by mouth daily. vitamin E 670 mg (1,000 unit) capsule Take 400 Units by mouth daily. pantoprazole (PROTONIX) 40 mg Tablet, Delayed Release (E.C.) Take 40 mg by mouth daily. 06/27/2022 meclizine (ANTIVERT) 25 mg tablet Take 1 Tablet (25 mg) by mouth every 8 hours for 3 days, THEN 1 Tablet (25 mg) 3 times daily as needed for Dizziness. 18 Tablet 07/26/2023 08/01/2023 documented as of this encounter Progress Notes * Gisella Schaeffer, CUSHION INSTALLER - 07/26/2023 10:23 AM CDT Admit Date: 07/24/2023 9:11 AM LOS: 0 Subjective: Meghana Dueñas is a 83 y.o. female who presented with low back pain extending to her buttocks and posterior thighs with activity. She is now POD 2 after posterior L4-L5 fusion with pinhole durotomy repaired primarily by Dr. Dorado on 07/24/23. TODAY: Patient seen on ortho. Reports she is feeling significantly better today. She denies headaches, nausea, or vomiting. Back pain is tolerable. Some left hip pain, but no radicular pain. No new numbness, tingling, or weakness. Objective: Patient Vitals for the past 8 hrs: BP Temp Temp src Pulse Resp SpO2 07/26/23 0747 118/48 99.4 ??F (37.4 ??C) Oral 80 16 93 % 07/26/23 0400 (!) 107/43 99.2 ??F (37.3 ??C) Oral -- 16 92 % Intake/Output Summary (Last 24 hours) at 07/26/2023 1023 Last data filed at 07/25/2023 1300 Gross per 24 hour Intake 240 ml Output -- Net 240 ml BP 118/48 (BP Location: Left arm, Patient Position (BP): Sitting) Pulse 80 Temp 99.4 ??F (37.4 ??C) (Oral) Resp 16 Ht 4' 9 (1.448 m) Wt 64.9 kg (143 lb) SpO2 93% BMI 30.94 kg/m?? Physical Exam: Awake, alert Oriented x4 Follows commands No obvious motor or sensory deficits Incision is CDI- marko intact Data Review: I have personally reviewed the imaging studies. Lab Results Component Value Date/Time WBC 12.3 (H) 07/25/2023 10:55 AM HGB 11.1 (L) 07/25/2023 10:55 AM HCT 34.1 (L) 07/25/2023 10:55 AM PLT 143 (L) 07/25/2023 10:55 AM MCV 97.3 07/25/2023 10:55 AM Lab Results Component Value Date/Time NA 141 07/25/2023 10:55 AM K 4.4 07/25/2023 10:55 AM CL 111 (H) 07/25/2023 10:55 AM CO2 18 (L) 07/25/2023 10:55 AM CA 8.2 (L) 07/25/2023 10:55 AM BUN 13 07/25/2023 10:55 AM CREAT 0.61 07/25/2023 10:55 AM GLUCOSE 128 (H) 07/25/2023 10:55 AM ANIONGAP 12 07/25/2023 10:55 AM BCRATIO 41 (H) 07/12/2023 10:51 AM Assessment: Status post posterior L4-L5 fusion with pinhole durotomy repaired primarily by Dr. Dorado on 07/24/23. Plan: Medical management per hospitalist group Activity as tolerated- avoid heavy lifting, twisting, and bending PT OT DVT prophylaxis- SCDs, encouraged frequent ambulation Discharge planning- likely home later today or tomorrow when cleared medically Follow up in 2 weeks for staple removal Working in collaboration with Dr. Carl Schaeffer APRN, 07/26/2023 10:23 AM Associated attestation - Carl Dorado MD - 07/26/2023 11:17 PM CDT The patient was personally seen and examined by me. I have reviewed the history, physical examination, relevant imaging studies and assessment with Gisella Schaeffer APRN. I have formulated a neurosurgical plan of care as stated in the attached note. The patient feels significantly better today. She does not have headaches, nausea or vomiting. She is ambulating well with physical therapy. She has no leg pain. We will discharge her to home. Carl Dorado MD, [facility] [address] [place] [address] * Al Chavez MD - 07/26/2023 10:20 AM CDT General Hospitalist Progress Note Meghana Powell Spenser 83 y.o. female PCP: Korey Randolph MD Admission date: 07/24/2023 Date of service: 07/26/2023 Length of stay: 0 No chief complaint on file. Subjective: ROS: No complaints of nausea, vomiting diarrhea. No complaints of headache. No complaints of chest pain or SOB. Objective: Patient Vitals for the past 8 hrs: BP Temp Temp src Pulse Resp SpO2 07/26/23 0747 118/48 99.4 ??F (37.4 ??C) Oral 80 16 93 % 07/26/23 0400 (!) 107/43 99.2 ??F (37.3 ??C) Oral -- 16 92 % Physical examination: General appearance alert, cooperative, no distress, appears stated age Head Normocephalic, without obvious abnormality, atraumatic Eyes conjunctivae/corneas clear. PERRL, EOM's intact. Lungs clear to auscultation bilaterally Chest wall no tenderness Heart regular rate and rhythm, S1, S2 normal, no murmur, click, rub or gallop Abdomen soft, non-tender. Bowel sounds normal. No masses, No organomegaly Extremities extremities normal, atraumatic, no cyanosis or edema Pulses 2+ and symmetric Skin Skin color, texture, turgor normal. No rashes or lesions Neuro Normal Allergies Allergen Reactions Latex Rash blisters Current Facility-Administered Medications Medication Dose Route Frequency Provider Last Rate Last Admin meclizine (ANTIVERT) tablet 25 mg 25 mg Oral every 8 hours Al Chavez MD 25 mg at 07/26/23 0547 sodium chloride 0.9% infusion IV continuous Al Chavez MD 100 mL/hr at 07/26/23 0919 New Bag at 07/26/23 0919 [DISCONTINUED] sodium chloride 0.9% infusion IV continuous Al Chavez MD 150 mL/hr at 07/25/23 1215 New Bag at 07/25/23 1215 naloxone (NARCAN) 0.4 mg/mL injection 0.1-0.4 mg 0.1-0.4 mg IV see admin instructions Diana Elizondo MD atorvastatin (LIPITOR) tablet 10 mg 10 mg Oral daily BEDTIME Carl Dorado MD 10 mg at 07/25/23 2138 cholecalciferol (vitamin D3) tablet 2,000 Units 2,000 Units Oral daily Carl Dorado MD 2,000 Units at 07/26/23 0917 pantoprazole (PROTONIX) tablet 40 mg 40 mg Oral daily Carl Dorado MD 40 mg at 07/26/23 0918 docusate sodium (COLACE) 50 mg/5 mL oral solution 50 mg 50 mg Oral daily Carl Dorado MD 50 mg at 07/26/23 0916 acetaminophen (TYLENOL) tablet 650 mg 650 mg Oral every 6 hours Carl Dorado MD 650 mg at 07/26/23 0547 oxyCODONE (ROXICODONE) tablet 5 mg 5 mg Oral every 4 hours PRN Carl Dorado MD oxyCODONE (ROXICODONE) tablet 10 mg 10 mg Oral every 4 hours PRN Carl Dorado MD 10 mg at 07/25/23 0222 HYDROmorphone (PF) (DILAUDID) injection 0.6 mg 0.6 mg IV every 30 minutes PRN Carl Dorado MD ondansetron (ZOFRAN ODT) tablet 4 mg 4 mg Oral every 6 hours PRN Carl Dorado MD 4 mg at 07/25/23 1001 ondansetron (ZOFRAN) 4 mg/2 mL injection 4 mg 4 mg IV every 6 hours PRN Carl Dorado MD 4 mg at07/25/23 0232 vitamin B complex-vitamin C-folic acid capsule 1 Capsule 1 Capsule Oral daily Carl Dorado MD 1Capsule at 07/26/23 0917 [DISCONTINUED] lactated ringers infusion IV continuous Carl Dorado MD 40 mL/hr at 07/24/23 1452 New Bag at 07/24/23 1630 [DISCONTINUED] sodium chloride 0.9% infusion IV continuous Carl Dorado MD 125 mL/hr at 07/25/23 0403 Rate Change at 07/25/23 0403 Intake/Output Summary (Last 24 hours) at 07/26/2023 1020 Last data filed at 07/25/2023 1300 Gross per 24 hour Intake 240 ml Output -- Net 240 ml LABS: CBC: Lab Results Component Value Date WBC 12.3 (H) 07/25/2023 RBC 3.50 (L) 07/25/2023 HGB 11.1 (L) 07/25/2023 HCT 34.1 (L) 07/25/2023 PLT 143 (L) 07/25/2023 BMP: Lab Results Component Value Date GLUCOSE 128 (H) 07/25/2023 NA 141 07/25/2023 K 4.4 07/25/2023 CL 111 (H) 07/25/2023 CO2 18 (L) 07/25/2023 BUN 13 07/25/2023 Coagulation: No components found for: PROTIME , LABINR , PTT Cardiac markers: No results found for: CKMB , MYOGLOBIN ABGs: No results found for: PH , PO2 , PCO2 , BASEEXCESS IMAGING: Radiology No results found for this or any previous visit. Results for orders placed during the hospital encounter of 07/24/23 XR LUMBAR SPINE 1 VW Narrative XR LUMBAR SPINE 1 VW DATE: 07/24/2023 4:43 PM HISTORY: Intraoperative evaluation. FINDINGS: Intraoperative image and straight bilateral pedicle screws and posterior fusion at the L5 for L5 level. DICTATION LOCATION: [address] Results for orders placed during the hospital encounter of 07/13/23 MRI LUMBAR W WO CONTRAST Impression : Lumbar spondylosis with L1-2 4.8 mm retrolisthesis and L4-5 4.5 mm anterolisthesis. Dictation location four No results found for this or any previous visit. ECG: Personally reviewed. No results found for this or any previous visit. Cardiac Echo result (most recent): No results found for this or any previous visit. Carotid Doppler result (most recent): No results found for this or any previous visit. Most recent Chest CT result: No results found for this or any previous visit. Active Problems: Degenerative spondylolisthesis Spinal stenosis of lumbar region with neurogenic claudication S/P lumbar spinal fusion Postoperative hypotension Vertigo Leukocytosis Anemia Assessment/Plan: 83-year-old female with past medical history significant for osteoporosis, gastroesophageal reflex disease, hypertension, vertigo, lumbar spinal stenosis, lumbar spondylolisthesis admitted after undergoing elective L4-L5 fusion by neurosurgery. Postoperative course uneventful other than postoperative headaches vertigo postoperative vital signs with hypotension with patient being symptomatic with postural dizziness and headaches. Lumbar stenosis with neurogenic claudication and Lumbar spondylolisthesis S/P L4 - L5 lumbar spinal fusion L4 wide bilateral lumbar laminectomy, facetectomy, foraminotomy for decompression by neurosurgery complete perioperative antibiotics postoperative pain control with narcotics muscle relaxants and gabapentin post operative DVT prophylaxis when cleared by neurosurgery postoperative therapies neurosurgery following Postoperative hypotension: dehydration anesthesia narcotics contributing systolic blood pressures improving with IV hydration SBP 89--118 hold FISH SALTER antihypertensives continue IV hydration discontinued prior to discharge with all above measures patient is blood pressures and symptoms including headaches and vertigo improved considerably Postoperative headaches: with vertigo hypotension might be contributing IV fluids discontinued prior to discharge scheduled meclizine-- given a prescription and discharge with all above measures patients symptoms improved considerably Leukocytosis: mild reactive and perioperative steroids/dexamethasone use no signs of source of infection currently Anemia unspecified check iron panel and B-12 Total 39 minutes were spent for the management of this patient including -consulting and discussion with consultants -discussion with nursing staff -updating family members etc. -reviewing prior hospitalization and outside hospital medical records -personally reviewing tele monitoring -personal review EKG and chest x-rays and other imaging -lab interpretation and discussion of lab results with Consultants on the case -Monitoring vital signs closely as patient on IV / PO narcotics. Medical Decision Making may include the following: Discussion of expected course of disease, discussion of prognosis, discharge planning, coordinationof care, and discussion of lab and test results. Preparing to see the pt and review of tests Obtaining and/or reviewing separately obtained hx Performing a medically appropriate examination and/or evaluation Counseling and educating the pt/family/caregiver Ordering medications, tests and procedures Referring and communication with other health nonfarm animal caretaker Documenting clinical information in the health record Independently interpreting results and communicating the results to pt/family caregiver Discussion of expected course of disease, discussion of prognosis, discharge planning, coordinationof care and discussion of lab and test results Complex medical decision making with acute impairment of vital organs, severe exacerbation, decompensation, progressive disease, with increased risk of morbidity mortality without treatment/testing/monitoring. Al Chavez MD 07/26/2023 10:20 AM * Gisella Schaeffer, CUSHION INSTALLER - 07/25/2023 11:41 AM CDT Admit Date: 07/24/2023 9:11 AM LOS: 0 Subjective: Meghana Dueñas is a 83 y.o. female who presented with low back pain extending to her buttocks and posterior thighs with activity. She is now POD 1 after posterior L4-L5 fusion by Dr. Dorado on 07/24/23. TODAY: Patient seen on ortho. Reports severe neck pain, headache, nausea and vomiting when she sits up or attempts to ambulate. She reports tolerable low back pain. She is urinating without difficulty. Objective: Patient Vitals for the past 8 hrs: BP Temp Temp src Pulse Resp SpO2 07/25/23 0839 (!) 93/45 98.7 ??F (37.1 ??C) Oral 99 14 96 % 07/25/23 0600 (!) 105/92 -- -- -- -- -- 07/25/23 0420 (!) 94/54 -- -- -- -- -- 07/25/23 0415 (!) 89/56 97.3 ??F (36.3 ??C) Oral (!) 57 14 99 % Intake/Output Summary (Last 24 hours) at 07/25/2023 1142 Last data filed at 07/25/2023 0600 Gross per 24 hour Intake 1700 ml Output 560 ml Net 1140 ml BP (!) 93/45 (BP Location: Left arm, Patient Position (BP): Supine) Pulse 99 Temp 98.7 ??F (37.1 ??C) (Oral) Resp 14 Ht 4' 9 (1.448 m) Wt 64.9 kg (143 lb) SpO2 96% BMI 30.94 kg/m?? Physical Exam: Awake, alert Oriented x4 Follows commands No obvious motor or sensory deficits Incision is CDI- marko intact Hemovac drain in place- serous drainage around drain insertion site Data Review: I have personally reviewed the imaging studies. Lab Results Component Value Date/Time WBC 12.3 (H) 07/25/2023 10:55 AM HGB 11.1 (L) 07/25/2023 10:55 AM HCT 34.1 (L) 07/25/2023 10:55 AM PLT 143 (L) 07/25/2023 10:55 AM MCV 97.3 07/25/2023 10:55 AM Lab Results Component Value Date/Time NA 141 07/25/2023 10:55 AM K 4.4 07/25/2023 10:55 AM CL 111 (H) 07/25/2023 10:55 AM CO2 18 (L) 07/25/2023 10:55 AM CA 8.2 (L) 07/25/2023 10:55 AM BUN 13 07/25/2023 10:55 AM CREAT 0.61 07/25/2023 10:55 AM GLUCOSE 128 (H) 07/25/2023 10:55 AM ANIONGAP 12 07/25/2023 10:55 AM BCRATIO 41 (H) 07/12/2023 10:51 AM Assessment: Status post posterior L4-L5 fusion by Dr. Dorado on 07/24/23. Plan: Consult hospitalist for medical management DC hemovac drain today Slowly increase HOB as tolerated Activity as tolerated- avoid heavy lifting, twisting, and bending PT OT DVT prophylaxis- SCDs Discharge planning- likely home tomorrow after pain is controlled and cleared by PT Follow up in 2 weeks for staple removal Working in collaboration with Dr. Carl Schaeffer APRN, 07/25/2023 11:42 AM Associated attestation - Carl Dorado MD - 07/26/2023 8:06 AM CDT The patient was personally seen and examined by me. I have reviewed the history, physical examination, relevant imaging studies and assessment with Gisella Schaeffer APRN. We have together formulated aneurosurgical plan of care as stated in the attached note. Good relief of leg pain. Full strength in legs. Headaches - had pinhole durotomy repaired primarily - d/c drain, fluids, caffeine, continued observation. Carl Dorado MD, [facility] Neurosurgery [address] [place] [address]. [place] [address] * Cristina Rosenberg RN - 07/25/2023 7:51 AM CDT Took over the care for this patient, from PACCU. Sister at the bedside. Later on the night attempted to get up to the bedside commode as she had to void, some complains of dizziness and nausea and vomiting, later started complaining of severe headaches. Reached out to the neurosurgeon about the above, instructed me to leave the drain off suction until the headache resolved. \ Headache did improve, however has been ongoing with a dull minor sensation still. BP slight low through the night, gave bolus and increased fluids rate under neurosurgery orders. documented in this encounter H&P Notes * Carl Dorado MD - 07/24/2023 10:00 AM CDT Images from the original note were not included. [facility] [address] [place] [address]. [place] [address] Visit Date: Attending: Office Phone: Office Fax: 07/07/2023 Carl Dorado MD, [facility] Consult CC: Low back pain HPI Ms. Dueñas is a 83 y.o. year old female patient of Dr. Fajardo referred for evaluation of lumbar stenosis. The patient is a very active 83-year-old female referred for evaluation of lumbar stenosis.She has not improved with extensive conservative treatment. She now wishes to consider surgical options. She complains of low back pain extending into her buttocks and posterior thighs with activities, left greater than right. This limits her activities. She used to run 5K's and now has difficulty with walking prolonged distances. She reports that she can push going up to a mile. She reports thather back and leg symptoms are affecting her activities of daily living. She denies any change in bowel or bladder function. She denies any shooting leg pain or distal numbness or tingling. Symptoms are worse with standing and activity. She has recently had increased problems with vertigo and is having this evaluated by her primary care physician. Review of Systems: Review of Systems Constitutional: Negative for chills and unexpected weight change. HENT: Negative for voice change. Respiratory: Negative for shortness of breath. Cardiovascular: Negative for chest pain. Gastrointestinal: Negative for nausea. Genitourinary: Negative for dysuria. Musculoskeletal: Negative for myalgias. Skin: Negative for color change. Neurological: Negative for seizures. Hematological: Negative for adenopathy. Psychiatric/Behavioral: The patient is not hyperactive. Current Meds Current Outpatient Medications: atorvastatin (LIPITOR) 10 mg tablet, Take 1 Tablet by mouth daily., Disp: , Rfl: pantoprazole (PROTONIX) 40 mg Tablet, Delayed Release (E.C.), TK 1 T PO BID, Disp: , Rfl: Vit C-Vit T-Wlfiui-HvLs-Lutein (PRESERVISION) 226-90-0.8-5 mg Capsule, Take 1 Capsule by mouth daily., Disp: , Rfl: cyanocobalamin Powder, Take by mouth., Disp: , Rfl: Iron 18 mg Tablet, Take by mouth., Disp: , Rfl: Lysine HCl, Bulk, 100 % Powder, Take by mouth daily., Disp: , Rfl: multivitamin (Multiple Vitamins) tablet, Take by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 DAILY, First dose on Mon07/25/23 at 0900, Until Discontinued, Routine Given 07/26/2023 9:17 AM CDT 1 Capsule Given 07/25/2023 9:30 AM CDT 1 Capsule documented in this encounter Active and Recently Administered Medications Times are shown in CDT. Scheduled Medication Order 07/24/2023 07/25/2023 07/26/2023 acetaminophen (TYLENOL) tablet 650 mg 650 mg, Oral, EVERY 6 HOURS, First dose on Mon07/24/23 at 1945, Until Discontinued, Routine, Post-op - Floor 2036 (Given - Provider: Cristina Acevedo RN) 221 (Given - Provider: Cristina Acevedo RN)0930 (Given - Provider: Ingrid Fong RN)1214 (Given - Provider: Ingrid Fong RN)2137 (Given - Provider: Anastasiya Dewey RN) 0000 (Not Given - Provider: Anastasiya Dewey RN - Reason: Other - See Comment - Comment: Too close to the last dose)0547 (Given - Provider: Anastasiya Dewey RN)1331 (Given - Provider: Ingrid Fong RN)1800 (Due) atorvastatin (LIPITOR) tablet 10 mg 10 mg, Oral, DAILY AT BEDTIME, First dose on Mon07/24/23 at 2100, Until Discontinued, Routine, Previous Med: atorvastatin (LIPITOR) 10 mg tablet - Orig Sig - Take 1 Tablet by mouth daily at bedtime. 2036 (Given - Provider: Cristina Acevedo RN) 2137 (Given - Provider: Anastasiya Dewey RN) ceFAZolin (ANCEF) 1,000 mg in dextrose (iso-osmotic) 50 mL IVPB (PREMIX) (COMPLETED) 1,000 mg, IV, POST-PROCEDURE Q 8 HOURS, 2 doses, First dose on Mon07/24/23 at 2100, Last dose on Mon07/25/23 at 0500, Routine, Post-op - Floor, Antibiotic Indication: Surgical prophylaxis 0002 (New Bag - Provider: Cristina Acevedo RN)0032 (Stopped - Provider: Cristina Acevedo RN)0742 (New Bag - Provider: Cristina Acevedo RN)0812 (Stopped - Provider: Ingrid Fong RN) ceFAZolin (ANCEF,KEFZOL) 2,000 mg in sodium chloride 0.9% 50 mL IVPB (COMPLETED) 2,000 mg, IV, PRE-PROCEDURE ONCE, 1 dose, Starting on Mon07/24/23 at 0924, Until Mon07/24/23 at 1506, Routine, Pre-op, Antibiotic Indication: Surgical prophylaxis 1506 (New Bag - Provider: SOLITARIO Nelson) cholecalciferol (vitamin D3) tablet 2,000 Units 2,000 Units, Oral, DAILY, First dose on Mon07/25/23 at 0900, Until Discontinued, Routine, Previous Med: cholecalciferol (vitamin D3) 50 mcg (2,000 unit) tablet - Orig Sig - Take 2,000 Units by mouth daily. 09 (Given - Provider: Ingrid Fong RN) 09 (Given - Provider: Ingrid Fong RN) docusate sodium (COLACE) 50 mg/5 mL oral solution 50 mg 50 mg, Oral, DAILY, First dose on Mon07/25/23 at 0900, Until Discontinued, Routine, Previous Med: docusate sodium (COLACE) 50 mg capsule - Orig Sig - Take 50 mg by mouth daily. 09 (Given - Provider: Ingrid Fong RN) 0916 (Given - Provider: Ingrid Fong RN) ketorolac (TORADOL) injection 15 mg (COMPLETED) 15 mg, IV, ONE TIME ONLY, 1 dose, On Mon07/24/23 at 1815, Stat 1813 (Given - Provider: Elisa Fitzgerald RN) meclizine (ANTIVERT) tablet 25 mg 25 mg, Oral, EVERY 8 HOURS, 5 doses, First dose on Mon07/25/23 at 1200, Last dose on Mon07/26/23 at 2100, Routine 1213 (Given - Provider: Ingrid oFng RN)2138 (Given - Provider: Anastasiya Dewey RN) 0547 (Given - Provider: Anastasiya Dewey RN)1331 (Given - Provider: Ingrid Fong RN) naloxone (NARCAN) 0.4 mg/mL injection 0.1-0.4 mg 0.1-0.4 mg, IV, SEE ADMIN INSTRUCTIONS, Starting on Mon07/24/23 at 0956, Until Mon07/26/23 at 2016, Routine, PACU pantoprazole (PROTONIX) tablet 40 mg 40 mg, Oral, DAILY, First dose on Mon07/25/23 at 0900, Until Discontinued, Routine, Previous Med: pantoprazole (PROTONIX) 40 mg Tablet, Delayed Release (E.C.) - Orig Sig - Take 40 mg by mouth daily. , Indication: Gastroesophageal reflux disease (GERD) 0930 (Given - Provider: Ingrid Fong RN) 0918 (Given - Provider: Ingrid Fong RN) sodium chloride 0.9% bolus solution 1,000 mL (COMPLETED) 1,000 mL, IV, ONE TIME ONLY, 1 dose, On Mon07/25/23 at 0300, at 2,000 mL/hr, Administer over 30 Minutes, Routine 0313 (New Bag - Provider: Cristina Acevedo RN)0343 (Stopped - Provider: Cristina Acevedo RN) vitamin B complex-vitamin C-folic acid capsule 1 Capsule 1 Capsule, Oral, DAILY, First dose on Mon07/25/23 at 0900, Until Discontinued, Routine 0930 (Given - Provider: Ingrid Fong RN) 0917 (Given - Provider: Ingrid Fong RN) Continuous Medication Order 07/24/2023 07/25/2023 07/26/2023 lactated ringers infusion (CANCELED) IV, at 40 mL/hr, CONTINUOUS, Starting on Mon07/24/23 at 0930, Until Mon07/25/23 at 1043, Routine 0945 (New Bag - Provider: Jailene Olson RN)1452 (Continue from Pre-Op - Provider: SOLITARIO Nelson)1454 (Paused - Provider: SOLITARIO Nelson - Comment: Switch to gravity)1455 (New Bag - Provider: SOLITARIO Nelson)1630 (New Bag - Provider: BINTA Shah)1715 (Fluid Volume - Provider: BINTA Shah) sodium chloride 0.9% infusion (CANCELED) IV, at 125 mL/hr, CONTINUOUS, Starting on Mon07/24/23 at 1945, Until Mon07/25/23 at 1043, Routine, Post-op - Floor 2042 (New Bag - Provider: Cristina Acevedo, JESSICA) 0403 (Rate Change - Provider: Cristina Acevedo, JESSICA) sodium chloride 0.9% infusion (CANCELED) IV, at 150 mL/hr, CONTINUOUS, Starting on Mon07/25/23 at 1045, Until Mon07/25/23 at 1929, Routine, Post-op - Floor 1215 (New Bag - Provider: Ingrid Fong, JESSICA) sodium chloride 0.9% infusion IV, at 100 mL/hr, CONTINUOUS, Starting on Mon07/25/23 at 1930, Until Mon07/26/23 at 1929, Routine, Post-op - Floor 2143 (New Bag - Provider: Anastasiya Dewey RN) 0919 (New Bag - Provider: Ingrid Fong RN) PRN Medication Order 07/24/2023 07/25/2023 07/26/2023 BUPivacaine-EPINEPHrine (PF) (SENSORCAINE MPF WITH EPI) 0.5 %-1:200,000 injection (CANCELED) INTRA-PROCEDURE PRN, Starting on Mon07/24/23 at 1521, Until Mon07/24/23 at 1718, Routine, Intra-op 1521 (Given - Provider: Carl Dorado MD) HYDROmorphone (PF) (DILAUDID) injection 0.3 mg (CANCELED) 0.3 mg, IV, POST-PROCEDURE Q 5 MINUTES PRN, 10 doses, Starting on Mon07/24/23 at 0956, Until Mon07/24/23 at 1943, Pain, Routine, PACU 1739 (Given - Provider: Elisa Fitzgerald RN)1753 (Given - Provider: Elisa Fitzgerald RN)1802 (Given - Provider: Elisa Fitzgerald RN) HYDROmorphone (PF) (DILAUDID) injection 0.6 mg 0.6 mg, IV, EVERY 30 MINUTES PRN, Starting on Mon07/24/23 at 1943, Until Mon07/26/23 at 2016, Pain (See admin instructions), Routine, Post-op - Floor ondansetron (ZOFRAN ODT) tablet 4 mg 4 mg, Oral, EVERY 6 HOURS PRN, Starting on Mon07/24/23 at 1943, Until Mon07/26/23 at 2016, Nausea/Emesis, Routine, Post-op - Floor 1001 (Given - Provider: Ingrid Fong RN) ondansetron (ZOFRAN) 4 mg/2 mL injection 4 mg 4 mg, IV, EVERY 6 HOURS PRN, Starting on Mon07/24/23 at 1943, Until Mon07/26/23 at 2016, Nausea/Emesis, Routine, Post-op - Floor 2033 (Given - Provider: Cristina Acevedo RN) 023 (Given - Provider: Cristina Acevedo RN) oxyCODONE (ROXICODONE) tablet 10 mg 10 mg, Oral, EVERY 4 HOURS PRN, Starting on Mon07/24/23 at 194, Until Mon07/26/23 at 2016, Pain (See admin instructions), Routine, Post-op - Floor 022 (Given - Provider: Cristina Acevedo RN) oxyCODONE (ROXICODONE) tablet 5 mg 5 mg, Oral, EVERY 4 HOURS PRN, Starting on Mon07/24/23 at 1943, Until Mon07/26/23 at 2016, Pain (See admin instructions), Routine, Post-op - Floor documented in this encounter Care Teams Counterintelligence Specialist Relationship Specialty Start Date End Date Korey Randolph MD [address] [facility] [address] [place] [phone] PCP - General Internal Medicine 07/06/23 documented as of this encounter
--- OUTSIDE RECORDS SUMMARY | 2024-04-07 05:43 | XMS_ITS | Encounter Summary ---
Author Organization [facility] Address [address] [place] [address] Care Team Providers Care Lead Janitor Name Role Phone Korey Randolph MD Primary Care Provider [phone] Reason for Visit * Reason Comments Follow Up Six month follow up appointment. Encounter Details Date Type Department Care Team (Late st Contact Info) Description 03/15/2024 10:30 AM DIRECTOR TOXICOLOGY Office Visit [facility] ([facility]3] Neurosurgery [address] [place] [address] [facility] [address] [place] [phone] Carl Dorado MD [address] [place] [phone] Status post lumbar spinal fusion (Primary Dx) Social History Tobacco Use Types [...] Sign Reading Time Taken Comments Blood Pressure 137/79 03/15/2024 10:19 AM DIRECTOR TOXICOLOGY Pulse 77 03/15/2024 10:19 AM DIRECTOR TOXICOLOGY Temperature 36.7 ??C (98.1 ??F) 03/15/2024 10:[address] Respiratory Rate 16 03/15/2024 10:19 AM DIRECTOR TOXICOLOGY Oxygen Saturation 99% 03/15/2024 10:19 AM DIRECTOR TOXICOLOGY Inhaled Oxygen Concentration - - Weight 67.6 kg (149 lb) 03/15/2024 10:19 AM DIRECTOR TOXICOLOGY Height 144.8 cm (4' 9 ) 03/15/2024 10:19 AM DIRECTOR TOXICOLOGY Body Mass Index 32.24 03/15/2024 10:19 AM DIRECTOR TOXICOLOGY documented in this encounter Progress Notes * Carl Dorado MD - 03/15/2024 10:48 AM CST Images from the original note were not included. Visit Date: 03/15/24 Attending: Carl Dorado MD, FAANS Office Office [facility]opaedic Spine Follow-up Note Diagnoses, Assessment and Plan for this Visit: Assessment & Plan Status post lumbar spinal fusion The patient is clinically doing well after L4-5 decompression and fusion. She had some bilateral buttock pain which resolved a few months ago. She denies any current back or leg symptoms. She is walking 8000 steps per day. I plan to see her back in 1 year with AP and lateral lumbar spine films at that time. We discussed that she can add rotation and bending to her exercise routine at this point. Data Unavailable Details of Today's Visit: Interim History: Ms. Dueñas is status post L4-5 decompression and fusion with great relief of her leg symptoms after the operation. She reports that she had some buttock pain bilaterally which has resolved. She is walking 8000 steps per day and doing chair yoga. She denies any shooting leg pain, numbness, tingling or weakness. She denies any bowel or bladder dysfunction. Align Capsule atorvastatin AZO CRANBERRY ORAL B-complex + vitamin C Tablet cholecalciferol (Vitamin D3) Tablet dimenhyDRINATE Tablet docusate sodium L-LYSINE ORAL magnesium oxide Capsule mupirocin (BACTROBAN) nasal - unkown strength Hana Oil Oil OTHER oxyCODONE-acetaminophen pantoprazole Tablet, Delayed Release (E.C.) PreserVision AREDS 2 Plus MV Capsule tiZANidine Tablet vitamin E Capsule Physical Examination: The patient is a well-developed, well-nourished female in no acute distress. She has good range of motion of the bilateral shoulders, elbows, hips and knees. She has grossly normal muscle bulk, tone and strength throughout. She has a normal gait and is able to perform tandem gait. Risk Stratification: Body mass index is 32.24 kg/m??. Social History Tobacco Use Smoking Status Never Smokeless Tobacco Never The ASCVD Risk score ([place], et al., 2019) failed to calculate for the following reasons: The 2019 ASCVD risk score is only valid for ages 40 to 79 Review of X-rays: L-spine xray report: Clinical Indications: s/p lumbar fusion Technique: AP and lateral lumbar spine films were performed today in clinic and personally reviewedby me. My findings/interpretation are: There is no acute evidence of fracture or traumatic subluxation identified. Overall sagittal alignment shows normal lumbar lordosis. AP alignment of the lumbar spine shows a mild degenerative scoliosis. Vertebrae show normal architecture Intervertebral disc spaces show significant degeneration and collapse at L1-2. There are postoperative changes of posterior instrumented fusion from L4 to L5 with bilateral transpedicular screws and stabilizing rods.There is no radiographic evidence to suggest hardware fractureor loosening. The sacroiliac joints appear symmetric. This document was created using speech voice [...] provider's office for clarification. Carl Dorado MD, [facility] Neu[facility] CTOR TOXICOLOGY documented in this encounter Miscellaneous Notes * Assessment & Plan Note - Carl Dorado MD - 03/15/2024 10:59 AM DIRECTOR TOXICOLOGY Associated Problem(s): Status post lumbar spinal fusion The patient is clinically doing well after L4-5 decompression and fusion. She had some bilateral buttock pain which resolved a few months ago. She denies any current back or leg symptoms. She is walking 8000 steps per day. I plan to see her back in 1 year with AP and lateral lumbar spine films at that time. We discussed that she can add rotation and bending to her exercise routine at this point. CTOR TOXICOLOGY documented in this encounter Plan of Treatment Upcoming Encounters Date Type Department Care Team (Late st Contact Info) Description 03/14/2025 10:30 AM DIRECTOR TOXICOLOGY Office Visit [facility] ([facility]3] Neurosurgery [address] [place] [address] [facility] [address] [place] [address] Carl Dorado MD [address] [place] [address] documented as of this encounter Results * XR LUMBAR SPINE 2 OR 3 VW (03/15/2024 10:45 AM DIRECTOR TOXICOLOGY) Anatomical Region Laterality Modality Spine Computed Radiogr aphy Narrative 03/15/2024 10:56 AM DIRECTOR TOXICOLOGY L-spine xray report: Clinical Indications: s/p lumbar fusion Technique: AP and lateral lumbar spine films were performed today in clinic and personally reviewed by me. ??My findings/interpretation are: There is no acute evidence of fracture or traumatic subluxation identified. ??Overall sagittal alignment shows normal lumbar lordosis. ??AP alignment of the lumbar spine shows a mild degenerative scoliosis. ?? Vertebrae show normal architecture Intervertebral disc spaces show significant degeneration and collapse at L1-2. There are postoperative changes of posterior instrumented fusion from L4 to L5 with bilateral transpedicular screws and stabilizing rods.There is no radiographic evidence to suggest hardware fracture or loosening. The sacroiliac joints appear symmetric. Carl Dorado MD DIAGNOSTIC IMAGING O RDERABLES documented in this encounter Visit Diagnoses Diagnosis Status post lumbar spinal fusion- Primary Arthrodesis status Status post lumbar spinal fusion Arthrodesis status documented in this encounter Care Teams Lead Janitor Relationship Specialty Start Date End Date Korey Randolph MD [address] [place] [address] [place] [phone] PCP - General Internal Medicine 07/06/23 documented as of this encounter
--- OUTSIDE RECORDS SUMMARY | 2024-04-07 05:43 | XMS_ITS | Encounter Summary ---
Author Organization [facility] Address [address] [place] [address] Care Team Providers Care Regional Trainer Name Role Phone Korey Randolph MD Primary Care Provider [phone] Encounter Details Date Type Department Care Team (Late st Contact Info) Description 07/19/2023 9:04 AM CDT - 07/19/2023 11:59 PM CDT Hospital Encounter [facility] Pre Surgical Assessment [address] [place] [address] Carl Dorado MD [address] [facility] [address] [place] [address] Discharge Disposition: Home or Self Care Anesthesia Record Procedure Summary Procedure Name Responsible Anesthesiologist Anesthesia Start Time Anesthesia Stop Time LUMBAR 4-5 LAMINECTOMY, POSTERIOR SPINAL FUSION (Spine Lumbar) Brenna Mcguire MD 07/24/23 1452 07/24/23 1725 Events Date Time Event Comment 07/24/2023 0955 1452 An Start 1452 An Start Data 1452 In Room This event disp lays the In Room time documented in the Surgical Log. Deleting this event will not remove it from the log but will remove it from the Grid and Graph timeline. 1452 Pre-Induction Immediate pre- induction anesthetic assessment performed. Vital signs as noted on graphic. 1455 An Induction 1458 An Intubation 1510 Anesthesia Ready 1520 Procedure Start This event d isplays the Procedure Start time documented in the Surgical Log. Deleting this event will not remove it from the log but will remove it from the Grid and Graph timeline. 1715 Procedure Stop This event di splays the Procedure Stop time documented in the Surgical Log. Deleting this event will not remove it from the log but will remove it from the Grid and Graph timeline. 1715 An Extubation Emergence unev entful Awake, spontaneous respirations. Adequate muscle strength demonstrated Adequate tidal volume. Orapharynx suctioned. Extubated with positive pressure ventilation. 1718 an stop data 1718 Out of Room This event disp lays the Out of Room time documented in the Surgical Log. Deleting this event will not remove it from the log but will remove it from the Grid and Graph timeline. 1725 An Stop Meds * Agents No agents on file. * Blood No blood administrations on file. Lines, Drains, and Airways Type Details Placement Removal Peripheral IV Pre-Hospital Start: No; Orientation: Posterior, Right; Location: Wrist; Device: Angiocath; Gauge: 18 gauge; Insertion Attempts: 2; Patient Tolerance: tolerated well 07/24/23 0945 by Jailene Olson RN Endotracheal Airway Type: ETT; Size: 7; Attempts: 1; Verification: Auscultated bilateral breath sounds, Equal chest movement, Continuous waveform capnography 07/24/23 1244 by Kecia Schumacher AA-C 07/24/23 1717 by Debra Lynch AA Drain Present on Admission : No; Tube Number: #1; Orientation: Left:, posterior; Location: lumbar spine; Type: hemovac; Size (Fr): (16 holes) 07/24/23 1646 by Angie Gautam RN 07/25/23 1200 by Ingrid Fong RN Incision 07/24/23; 1701; surgical incision; other (comment); back; 07/27/23; 0616 07/24/23 1701 by Angie Gautam RN 07/27/23 0616 by PROVIDER, DISCHARGE PATIENT documented in this encounter Social History Tobacco Use Types Packs/Day Years Used Date Smoking Tobacco: Never Smokeless Tobacco: Never Alcohol Use Standard Drinks/Week Comments Never 0 (1 standard drink = 0.6 oz pur e alcohol) Feeling Safe Answer Date Recorded Are you in a relationship wi th someone who hurts you emotionally and/or physically? Patient unable to answer 07/19/2023 Sex and Gender Information Value Date Recorded Sex Assigned at Not on file Gender Identity Not on file Sexual Orientation Not on file documented as of this encounter Last Filed Vital Signs Vital Sign Reading Time Taken Comments Blood Pressure 136/80 07/19/2023 10:03 AM CDT Pulse 71 07/19/2023 10:03 AM CDT Temperature - - Respiratory Rate - - Oxygen Saturation 97% 07/19/2023 10:03 AM CDT Inhaled Oxygen Concentration - - Weight 64.1 kg (141 lb 6.4 oz) 07/19/2023 10:03 AM CDT Height 144.8 cm (4' 9 ) 07/19/2023 10:03 AM CDT Body Mass Index 30.6 07/19/2023 10:03 AM CDT documented in this encounter Medications [...] 500 mg by mouth daily at bedtime. fn-ezt-DX-vit C-xnxrqx-llrdgtd (PreserVision AREDS 2 Plus MV) 200 mcg-15 mcg- 5 mg-1 mg Capsule Take 1 Capsule by mouth 2 times daily. cranberry fruit concentrate (AZO CRANBERRY ORAL) Take 2 Tablets by mouth daily at bedtime. Bifidobacterium infantis (Align) 4 mg Capsule Take 8 mg by mouth daily. Ripley Oil Oil Take 1 Dose by mouth [...] needed for Dizziness. 18 Tablet 07/26/2023 08/01/2023 oxyCODONE-acetaminophen (PERCOCET) 5-325 mg tabletIndications:Degener ative spondylolisthesis 1 to 2 tablets every 4 hours prn 90 Tablet 07/31/2023 07/24/2023 cyanocobalamin Powder Take by mouth. 07/03 Iron 18 mg Tablet Take by mouth. 07/26/19 Vit C-Vit G-Wwejrj-AbEa-Lutein (PRESERVISION) 226-90-0.8-5 mg Capsule Take 1 Capsule by mouth daily. 07/26/2023 documented as of this encounter Plan of Treatment Upcoming Encounters Date Type Department Care Team (Late st Contact Info) Description 03/14/2025 10:30 AM DRY TRANSFER WORKER Office Visit [facility] Neurosurgery [facility] [address] [facility] [address] [place] [phone] Carl Dorado MD [address] [address] documented as of this encounter Visit Diagnoses Diagnosis Preop examination Preoperative examination, unspecified documented in this encounter Care Teams Regional Trainer Relationship Specialty Start Date End Date Korey Randolph MD [address] [facility] [address] [facility] [place][note 2][place] [phone] PCP - General Internal Medicine 07/06/23 documented as of this encounter
--- OUTSIDE RECORDS SUMMARY | 2024-04-07 05:43 | XMS_ITS | Clinical Summary ---
Author Organization [facility] Address [address] [place] [address] Phone Care Team Providers Care Grades 1 Thru 6 Home Teacher Name Role Phone Korey Randolph MD Primary Care Provider [phone] Allergies Active Allergy Reactions Criticality Noted Date Comments Latex Rash High 07/07/2023 blisters Medications Medication Sig Dispensed Refills Start Date End Date Status atorvastatin (LIPITOR) 10 mg tablet Take 1 Tablet by mouth daily at bedtime. 10/11/2022 Active cholecalciferol (vitamin D3) 50 mcg (2,000 unit) tablet Take 2,000 Units by mouth daily. Active vitamin E 670 mg (1,000 unit) capsule Take 400 Units by mouth daily. Active pantoprazole (PROTONIX) 40 mg Tablet, Delayed Release (E.C.) Take 40 mg by mouth daily. 06/27/2022 Active L-LYSINE ORAL Take 1 Tablet by mouth 2 times daily as needed for Other (See Comment) (herpes mouth sores). Active B-complex + vitamin C (SUPER B-C) Tablet Take 1 Tablet by mouth daily. Active magnesium oxide 500 mg Capsule Take 500 mg by mouth daily at bedtime. Active cl-ivh-ES-vit C-rwdjtl-kxpzogw (PreserVision AREDS 2 Plus MV) 200 mcg-15 mcg- 5 mg-1 mg Capsule Take 1 Capsule by mouth 2 times daily. Active cranberry fruit concentrate (AZO CRANBERRY ORAL) Take 2 Tablets by mouth daily at bedtime. Active Bifidobacterium infantis (Align) 4 mg Capsule Take 8 mg by mouth daily. Active [place] Oil Oil Take 1 Dose by mouth daily. Active docusate sodium (COLACE) 50 mg capsule Take 50 mg by mouth daily. Active MUPIROCIN CALCIUM BOTH NOSTRIL Administer 1 Dose in each nostril 1 time daily as needed for Other (See Comment) (hx of mrsa in nares). Active OTHER Take 1 Tablet by mouth daily. Prevagen Active dimenhyDRINATE (DRAMAMINE) 50 mg Tablet Take 50 mg by mouth every 6 hours as needed for Dizziness. Active oxyCODONE-acetaminophen (PERCOCET) 5-325 mg tabletIndications:Degen erative spondylolisthesis Take 1-2 Tablets by mouth every 4 hours as needed. Max Daily Amount: 12 Tablets 56 Tablet 07/24/2023 Active tiZANidine (ZANAFLEX) 4 mg Tablet Take 1 Tablet (4 mg) by mouth every 6 hours as needed for Spasm. 90 Tablet 2 07/24/2023 Active oxyCODONE-acetaminophen (PERCOCET) 5-325 mg tabletIndications:Degen erative spondylolisthesis 1 to 2 tablets every 4 hours prn 90 Tablet 07/31/2023 Active Active Problems Problem Noted Date Diagnosed Date Status post lumbar spinal fusion 08/15/2023 Assessment & Plan (03/15/2024 10:59 AM CYLINDER FILLER): The patient is clinically doing well after [...] to her exercise routine at this point. Assessment & Plan (09/29/2023 10:40 AM CDT): Is doing very well after L4-5 posterior lumbar decompression and fusion. She has had resolution of her back and leg symptoms. She is walking 6-7000 steps per day. She is very pleased with her results. Her wound is well-healed and she can go into the pool or bath. I plan to see her back in 6 months time with AP and lateral lumbar spine films at that time. She has some mild signs of piriformis syndrome on the left and I have shown her some stretches to do at home. 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 07/25/2023 S/P lumbar spinal fusion 07/25/2023 Postoperative hypotension 07/25/2023 Vertigo 07/25/2023 Leukocytosis 07/25/2023 Anemia 07/25/2023 Degenerative spondylolisthesis 07/07/2023 Encounters Date Type Department Care Team Description 03/15/2024 10:35 AM CYLINDER FILLER Ancillary Procedure [facility] [address] [place] [address] Carl Dorado MD Status post lumbar spinal fusion 03/15/2024 10:30 AM CYLINDER FILLER Office Visit [facility] Neurosurgery [facility] [address] [facility] [address] [place] [address] Carl Dorado MD Status post lumbar spinal fusion (Primary Dx) from Last 3 Months Family History Relation Name Status Comments Daughter 1 Alive Daughter 2 Alive Father Mother Sister 1 Sister 2 Alive Son Alive Social History Tobacco Use Types Packs/Day Years Used Date Smoking Tobacco: Never Smokeless Tobacco: Never Tobacco Cessation:Counseling Given: Not Answered Alcohol Use Standard Drinks/Week Comments Never 0 (1 standard drink = 0.6 oz pur e alcohol) Feeling Safe Answer Date Recorded Are you in a relationship wi th someone who hurts you emotionally and/or physically? No 07/24/2023 Sex and Gender Information Value Date Recorded Sex Assigned at Not on file Gender Identity Not on file Sexual Orientation Not on file Last Filed Vital Signs Vital Sign Reading Time Taken Comments Blood Pressure 137/79 03/15/2024 10:19 AM CYLINDER FILLER Pulse 77 03/15/2024 10:19 AM CYLINDER FILLER Temperature 36.7 ??C (98.1 ??F) 03/15/2024 10:[address] Respiratory Rate 16 03/15/2024 10:19 AM CYLINDER FILLER Oxygen Saturation 99% 03/15/2024 10:19 AM CYLINDER FILLER Inhaled Oxygen Concentration - - Weight 67.6 kg (149 lb) 03/15/2024 10:19 AM CYLINDER FILLER Height 144.8 cm (4' 9 ) 03/15/2024 10:19 AM CYLINDER FILLER Body Mass Index 32.24 03/15/2024 10:19 AM CYLINDER FILLER Plan of Treatment Upcoming Encounters Date Type Department Care Team (Late st Contact Info) Description 03/14/2025 10:30 AM CYLINDER FILLER Office Visit [facility] [address] [place] [address] Carl Dorado MD [address] [facility] [address] [place] [address] Health Maintenance Due Date Last Done Comments DTAP/TDAP/TD VACCINES (1 - Tdap) 1960 ZOSTER VACCINE (1 of 2) 1991 RSV VACCINE (60+ or ) (1 - 1-dose 75+ series) 2016 INFLUENZA VACCINE (#1) 2023 , 02/11/2022, 01/01/2021, Additional history exists COVID-19 Vaccine (3 - 2023-2 5 season) 2023 06/16/2020, 05/13/2020 PNEUMOCOCCAL VACCINE 65+ YEARS Completed 1 04/28/2017, 12/13/2015, 01/15/2015 OSTEOPOROSIS SCREENING Completed 09/07/2022, 2022 Medical Devices Implanted Type Area Returned Case Inspector Device Identifier Shelf Expiration Date Model / Serial / Lot Hemostatic Surgiflo 8ml W/ Thrombin 299 - [id number] Implanted:Qty : 1 on 07/24/2023 by Carl Dorado MD at [facility] Hemostatic N/A: Spine Lumbar [employer]- [employer] 08/31/2024 [id number] / / [id number] Hemostatic Surgifoam [id number] 1973 - [id number] Implanted:Qty : 1 on 07/24/2023 by Carl Dorado MD at [facility] Hemostatic N/A: Spine Lumbar [employer]- [employer] 11/09/20241973 / / [id number] Lincoln Spine Pre Bent Keshawn 5.5 Mm X 35 Mm Implanted:Qty : 1 on 07/24/2023 by Carl Dorado MD at [facility] Keshawn N/A: Spine Lumbar NEW AGE MFR [id number] / [id number] Description:1X ADD LG Lincoln Spine Pre Bent Keshawn 5.5 Mm X 40 Mm Implanted:Qty : 1 on 07/24/2023 by Carl Dorado MD at [facility] Keshawn N/A: Spine Lumbar NEW AGE MFR [id number] / [id number] Description:1X ADD LG Lincoln Spine Pedicle Screw Implanted:Qty : 4 on 07/24/2023 by Carl Dorado MD at [facility] Screw N/A: Spine Lumbar NEW AGE MFR [id number] / [id number] Description:1X ADD LG Lincoln Spine Series Set Screw Implanted:Qty : 4 on 07/24/2023 by Carl Dorado MD at [facility] Screw N/A: Spine Lumbar NEW AGE MFR [id number] / [id number] Description:1X ADD LG Alloflex Strip Allograft Implanted:Qty : 1 on 07/24/2023 by Carl Dorado MD at [facility] Tissue N/A: Spine Lumbar [employer] 07/19/2025 [id number] / [id number] / Description:ITEM ADD-RDJ BR Requisition: [id number] Alloflex Strip Allograft Implanted:Qty : 1 on 07/24/2023 by Carl Dorado MD at [facility] N/A: Spine Lumbar [employer] 07/04/2026 [id number] / [id number] / Description:ITEM ADD-RDJ BR Requisition: [id number] Procedures Procedure Name Priority Date/Time Associated Diagnosis Comments XR LUMBAR SPINE 2 OR 3 VW Routine 03/15/2024 10:45 AM CYLINDER FILLER Status post lumbar spinal fusion from Last 3 Months Results * XR LUMBAR SPINE 2 OR 3 VW (03/15/2024 10:45 AM CYLINDER FILLER) Anatomical Region Laterality Modality Spine Computed Radiogr aphy Narrative 03/15/2024 10:56 AM CYLINDER FILLER L-spine xray report: Clinical Indications: s/p lumbar [...] Carl Dorado MD DIAGNOSTIC IMAGING O RDERABLES from Last 3 Months Advance Directives For more information, please contact: [phone] Documents on File Type Date Recorded Patient Federal Appellate Clerk Expl anation Advance Directive POA 08/09/2023 2:49 PM Ad barakat Directive POA Advance Directive Living Will 07/19/2023 9:06 AM Advance Directive Living Will * Full Code (Latest Code Status on File) Date Activated Date Inactivated Comments 07/24/2023 7:44 PM 07/26/2023 8:16 PM Care Teams Grades 1 Thru 6 Home Teacher Relationship Specialty Start Date End Date Korey Randolph MD [address] [place] [address] [address] [place] [id number] PCP - General Internal Medicine 07/06/23
--- OUTSIDE RECORDS SUMMARY | 2024-04-07 05:43 | XMS_ITS | Encounter Summary ---
Author Organization [facility] Address [address] [place] [address] Care Team Providers Care Satellite Dish Technician Name Role Phone Korey Randolph MD Primary Care Provider [phone] Encounter Details Date Type Department Care Team (Late st Contact Info) Description 11/28/2023 External Device Data STL ABSTRACTION Provider, Abstract NO ADDRESS ON FILE Social History Tobacco Use Types Packs/Day Years [...] on file documented as of this encounter Plan of Treatment Upcoming Encounters Date Type Department Care Team (Late st Contact Info) Description 03/14/2025 10:30 AM APPETIZER PACKER Office Visit [facility] [address] [facility] [place] [address] Carl Dorado MD [address] [facility] [address] [place] [address] documented as of this encounter Visit Diagnoses Not on filedocumented in this encounter Care Teams Satellite Dish Technician Relationship Specialty Start Date End Date Korey Randolph MD [address] [facility] [address] [place] [place] [id number] PCP - General Internal Medicine 07/06/23 documented as of this encounter
--- OUTSIDE RECORDS SUMMARY | 2024-04-07 05:43 | XMS_ITS | Encounter Summary ---
Author Organization [facility] Address [address] [place] [address] Care Team Providers Care Data Sciences Director Name Role Phone Korey Randolph MD Primary Care Provider [phone] Reason for Visit * Auth/Cert (Routine) Specialty Diagnoses / Procedures Referred By Contac t Referred To Contact Perioperative Diagnoses SPINAL STENOSIS WITH NEUROGENIC CLAUDICATION Procedures SC POSTERIOR NON-SEGMENTAL INSTRUMENTATION SC ALLOGRAFT FOR SPINE SURGERY ONLY MORSELIZED SC SANCHEZ FACETECTOMY & FORAMOTOMY 1 VRT SGM LUMBAR SC ARTHRODESIS POSTERIOR/PSTLAT TQ 1NTRSPC LUMBAR SC BONE MARROW ASPIRATION BONE GRFG SPI SURG ONLY L4-5 LAMINECTOMY, POSTERIOR SPINAL FUSION Carl Dorado MD [address] [facility] [address] [place] [address] [facility] Operating Room [address] [place] [address] Referral ID Status Reason Start Date Expiration Date Visits Re quested Visits Authorized [id number] 1 1 Encounter Details Date Type Department Care Team (Late st Contact Info) Description 07/24/2023 2:52 PM CDT Anesthesia Event [facility] Operating Room [address] [place] [address] [place] [address] [place] [address] Kecia Ruiz, ANP [address] [place] [address] Anesthesia Record Procedure Summary Procedure Name Responsible [...] and Graph timeline. 1725 An Stop Meds Name Total ceFAZolin (ANCEF,KEFZOL) 2,000 mg in sod ium chloride 0.9% 50 mL IVPB 2,000 mg lidocaine PF (XYLOCAINE MPF) 2% injectio n 3 mL propofol (DIPRIVAN) injection 110 mg rocuronium (ZEMURON) 10??mg/mL injection 40 mg succinylcholine (ANECTINE) 20 mg/mL inje ction syringe 100 mg dexamethasone (DECADRON) 4 mg/mL injecti on 4 mg phenylephrine (SAMMY-SYNEPHRINE) 100 mcg/m L injection 200 mcg fentaNYL (SUBLIMAZE) PF 50 mcg/mL inject ion 200 mcg phenylephrine (SAMMY-SYNEPHRINE) 50 mg in 0.9% sodium chloride 250 mL infusion 1.29 mg acetaminophen (OFIRMEV) 100 mg/10 mL IV 1,000 mg glycopyrrolate (ROBINUL) 0.2 mg/ mL inje ction 0.6 mg dexmedeTOMIDine (PRECEDEX) in NS 200??mc g/50 mL infusion 8 mcg ondansetron (ZOFRAN) 2??mg/mL injection 4 mg neostigmine (PROSTIGMINE) 1 mg/mL inject ion 3 mg lactated ringers infusion 1,600 mL * Agents Name Air Sevoflurane % Sevoflurane O2 N2O Inspired N2O O2 * Blood No blood administrations on [...] on file documented as of this encounter OR Notes * Anesthesia Postprocedure Evaluation - Dennis Turner MD - 07/24/2023 6:32 PM CDT Post Anesthesia Evaluation Vitals: Vitals Value Taken Time BP 120/71 07/24/23 1820 Temp 36.4 ??C 07/24/23 1724 Resp 17 07/24/23 1820 SpO2 100 % 07/24/23 1820 Pulse 74 07/24/23 1820 Heart Rate 80 bpm 07/24/23 1820 Pain Rating: Score: FLACC (rest): 7 (07/24/23 1802) Anesthesia Post Evaluation Patient location during evaluation: PACU Patient participation: patient was able to participate in the post op evaluation Level of consciousness: 0 = alert, responsive, answers simple questions appropriately, able to perform simple tasks Pain management: adequate Multimodal analgesia pain management approach Airway patency: patent Nausea or Vomiting: none Cardiovascular status: regular rate and rhythm Respiratory status: no respiratory symptoms Hydration status: well hydrated No notable events documented. Dennis Turner MD * Anesthesia Handoff - Lizandro Lui AA - 07/24/2023 5:25 PM CDT Post-Anesthetic transfer of care report elements to appropriate post-anesthesia recovery environment completed in accordance with procedure. I completed my handoff to the receiving nurse during which we: 1. Identified the patient 2. Identified the responsible provider 3. Reviewed the pertinent medical history 4. Discussed the surgical course 5. Reviewed intra-op anesthesia management and issues during anesthesia 6. Set expectations for post-procedure period 7. Orders as necessary and appropriate for continuation of care are present in Epic. 8. Allowed opportunity for questions and acknowledgement of understanding. Vital Signs: Vitals Value Taken Time BP 110/52 07/24/23 1724 Temp 36.4 ??C 07/24/23 1724 Resp 11 07/24/23 1724 SpO2 94 % 07/24/23 1724 Pulse 67 07/24/23 1724 Heart Rate 77 bpm 07/24/23 1725 Vitals shown include unfiled device data. 5:25 PM BINTA Luna * Anesthesia Procedure Notes - Kecia Schumacher AA-C - 07/24/2023 3:11 PM CDT Associated Order(s): Airway Airway Date/Time: 07/24/2023 2:58 PM Location: OR Plan: routine intubation Patient Identity Confirmed by: Verbally with patient and armband Airway: not difficult Staffing Performed: CREDIT RISK OFFICER/CAA Authorized by: Irvin Elizondo MD Performed by: Kecia Schumacher AA-C Indications and Patient Condition: Indications for Airway Management: Anesthesia Sedation Level: general anesthesia Preoxygenated: yes Patient Position: Sniffing Mask Difficulty Assessment: 1 - vent by mask Plan to extubate at end of case: Yes Final Airway Details: Final Airway Type: Endotracheal airway ETT Cuffed: Yes Cuff Volume (mL): 10 Technique Used for Successful ETT Placement: Direct laryngoscopy Devices/Methods Used in Placement: Intubating stylet Blade Type: straight blade Blade Size: 2 Insertion Site: Oral ETT Size (mm): 7.0 Measured from: Lips ETT to Lips (cm): 22 Tube secured with: Tape Placement Verified by: auscultation, end tidal CO2 and chest rise Cormack-Lehane Classification: Grade I - full view of glottis Number of Attempts at Approach: 1 Additional Procedure Information: atraumatic and dentition unchanged Additional Comments: Atraumatic intubation; attending present for entirety of procedure. Lips, gums, teeth unharmed. * Anesthesia Preprocedure Evaluation - Rater, Irvin Dewitt MD - 07/19/2023 10:28 AM CDT Location of Pre-Procedure Assessment: PSA-Authorization for Anesthetic. Anesthesia History: anesthesia history negative. Endocrine History: neg endo/other ROS. Renal History: Negative. Pulmonary History: neg pulmonary ROS. Cardiovascular History: neg cardio ROS.1 FOS w/o CP or SOBExercise tolerance: good. GI/Hepatic History: History of: GERD and without esophagitis. GERD is: well controlled. Neuro/Psych History: neg neuro/psych ROS. Musculoskeletal History: negative musculoskeletal ROS. Hematologic/Oncologic History: negative hematology/oncology ROS. Obstetric History: Nutrition Status: neg nutritional Other Findings: Vertigo Prefers to be called Yina. [facility] PHYSICAL EXAM: PHYSICAL EXAM: Habitus: Average Mental Status: Oriented, Alert, Awake and Full Affect Mallampati:: III TM distance:: >3 FB Neck ROM:: Full Cardiovascular normal Rhythm:: Regular Rate:: Normal Partial upper and Partial lower Pulmonary normal Breath sounds clear to auscultation Anesthesia Plan ASA Final: 2 General NPO status > 8 hours Anesthetic plan and risks discussed with Patient (Friend Tomy Contreras). [facility] FINAL DOS EXAM: ASA score (Day of Surgery): 2 Mallampati:: II Rhythm:regular Rate: normal breath sounds clear to auscultation Plan: General Discussed:: Risk of postop blindness discussed I have reviewed the patient's labs, EKG, and consult information. documented in this encounter Plan of Treatment Upcoming Encounters Date Type Department Care Team (Late st Contact Info) Description 03/14/2025 10:30 AM MEDICAL DRIVER Office Visit [facility] Neuro[facility] [address] [address] Carl Dorado MD [address] [address] documented as of this encounter Procedures Procedure Name Priority Date/Time Associated Diagnosis Comments SC ANES INSERT ENDOTRACHEAL AIRWAY Routine 07/24/2023 2:58 PM CDT documented in this encounter Results * SC ANES INSERT ENDOTRACHEAL AIRWAY (07/24/2023 2:58 PM CDT) Narrative Kecia Schumacher AA-C - 07/24/2023 2:58 PM CDT Kecia Schumacher AA-C ? 07/24/2023 ??3:12 PM Airway Date/Time: 07/24/2023 2:58 PM Location: OR Plan: routine intubation Patient Identity Confirmed by: ??Verbally with patient and armband Airway: not difficult Staffing Performed: CREDIT RISK OFFICER/CAA Authorized by: Irvin Elizondo MD ?? Performed by: Kecia Schumacher AA-C Indications and Patient Condition: ??Indications for Airway Management: ??Anesthesia ??Sedation Level: general anesthesia ??Preoxygenated: yes ?Patient Position: ??Sniffing ??Mask Difficulty Assessment: ??1 - vent by mask ??Plan to extubate at end of case: Yes ?? Final Airway Details: ??Final Airway Type: ??Endotracheal airway ??ETT ??Cuffed: Yes ?Cuff Volume (mL): ??10 ??Technique Used for Successful ETT Placement: ??Direct laryngoscopy ??Devices/Methods Used in Placement: ??Intubating stylet ??Blade Type: straight blade ??Blade Size: ??2 ??Insertion Site: ??Oral ??ETT Size (mm): ??7.0 ??Measured from: ??Lips ??ETT to Lips (cm): ??22 ??Tube secured with: ??Tape ??Placement Verified by: auscultation, end tidal CO2 and chest rise ?Cormack-Lehane Classification: ??Grade I - full view of glottis ??Number of Attempts at Approach: ??1 Additional Procedure Information: atraumatic and dentition unchanged Additional Comments: ?? Atraumatic intubation; attending present for entirety of procedure. Lips, gums, teeth unharmed. Irvin Elizondo MD PROCEDURE/MINOR SURG ICAL ORDERABLES documented in this encounter Visit Diagnoses Not on filedocumented in this encounter Administered Medications Inactive Administered Medications - up to 3 most recent administrations Medication Order MAR Action Action Date Dose Rate Site acetaminophen (OFIRMEV) 10 mg/mL injection IV, INTRA-PROCEDURE PRN, Starting on Mon07/24/23 at 1539, Until Mon07/24/23 at 1725, Routine, Anesthesia Intra-op Given 07/24/2023 3:39 PM CDT 1,000 mg ceFAZolin (ANCEF,KEFZOL) 2,000 mg in sodium chloride 0.9% 50 mL IVPB 2,000 mg, IV, PRE-PROCEDURE ONCE, 1 dose, Starting on Mon07/24/23 at 0924, Until Mon07/24/23 at 1506, Routine, Pre-op, Antibiotic Indication: Surgical prophylaxis New Bag 07/24/2023 3:06 PM CDT 2,000 mg dexAMETHasone (DECADRON) injection IV, INTRA-PROCEDURE PRN, Starting on Mon07/24/23 at 1513, Until Mon07/24/23 at 1725, Routine, Anesthesia Intra-op Given 07/24/2023 3:13 PM CDT 4 mg dexmedeTOMIDine in NS (PRECEDEX) 200 mcg/50 mL (4 mcg/mL) infusion IV, INTRA-PROCEDURE PRN, Starting on Mon07/24/23 at 1700, Until Mon07/24/23 at 1725, Anesthesia Intra-op New Bag 07/24/2023 5:00 PM CDT 8 mcg fentaNYL PF (SUBLIMAZE) 50 mcg/mL injection IV, INTRA-PROCEDURE PRN, Starting on Mon07/24/23 at 1522, Until Mon07/24/23 at 1725, Routine, Anesthesia Intra-op Given 07/24/2023 5:23 PM CDT 50 mcg Given 07/24/2023 5:15 PM CDT 50 mcg Given 07/24/2023 4:21 PM CDT 25 mcg glycopyrrolate (ROBINUL) injection IV, INTRA-PROCEDURE PRN, Starting on Mon07/24/23 at 1555, Until Mon07/24/23 at 1725, Routine, Anesthesia Intra-op Given 07/24/2023 5:03 PM CDT 0.4 mg Given 07/24/2023 3:55 PM CDT 0.2 mg lactated ringers infusion IV, at 40 mL/hr, CONTINUOUS, Starting on Mon07/24/23 at 0930, Until Mon07/25/23 at 1043, Routine New Bag 07/24/2023 4:30 PM CDT New Bag 07/24/2023 2:55 PM CDT Continue from Pre-Op 07/24/2023 2:52 PM CDT 40 mL/hr lidocaine PF 2% (XYLOCAINE MPF) injection IV, INTRA-PROCEDURE PRN, Starting on Mon07/24/23 at 1455, Until Mon07/24/23 at 1725, Routine, Anesthesia Intra-op Given 07/24/2023 2:55 PM CDT 3 mL neostigmine (PROSTIGMINE) 3 mg/3 mL (1 mg/mL) syringe IV, INTRA-PROCEDURE PRN, Starting on Mon07/24/23 at 1703, Until Mon07/24/23 at 1725, Routine, Anesthesia Intra-op Given 07/24/2023 5:03 PM CDT 3 mg ondansetron (ZOFRAN) injection IV, INTRA-PROCEDURE PRN, Starting on Mon07/24/23 at 1702, Until Mon07/24/23 at 1725, Routine, Anesthesia Intra-op Given 07/24/2023 5:02 PM CDT 4 mg phenylephrine in 0.9% sodium chloride (NEOSYNEPHRINE) 50 mg/250 mL (200 mcg/mL) infusion IV, INTRA-PROCEDURE CONTINUOUS PRN, Starting on Mon07/24/23 at 1526, Until Mon07/24/23 at 1725, Anesthesia Intra-op Rate Change 07/24/2023 3:44 PM CDT 0.2 mcg/kg/min 3.894 mL/hr New Bag 07/24/2023 3:26 PM CDT 0.3 mcg/kg/min 5.841 mL/ hr phenylephrine syringe IV, INTRA-PROCEDURE PRN, Starting on Mon07/24/23 at 1514, Until Mon07/24/23 at 1725, Routine, Anesthesia Intra-op Given 07/24/2023 3:29 PM CDT 100 mcg Given 07/24/2023 3:14 PM CDT 100 mcg propofoL (DIPRIVAN) injection IV, INTRA-PROCEDURE PRN, Starting on Mon07/24/23 at 1455, Until Mon07/24/23 at 1725, Anesthesia Intra-op New Bag 07/24/2023 2:55 PM CDT 110 mg rocuronium injection IV, INTRA-PROCEDURE PRN, Starting on Mon07/24/23 at 1455, Until Mon07/24/23 at 1725, Routine, Anesthesia Intra-op Given 07/24/2023 3:50 PM CDT 10 mg Given 07/24/2023 3:23 PM CDT 10 mg Given 07/24/2023 3:00 PM CDT 10 mg succinylcholine chloride (ANECTINE) 200 mg/10 mL (20 mg/mL) injection IV, INTRA-PROCEDURE PRN, Starting on Mon07/24/23 at 1500, Until Mon07/24/23 at 1725, Routine, Anesthesia Intra-op Given 07/24/2023 2:55 PM CDT 100 mg documented in this encounter Care Teams Data Sciences Director Relationship Specialty Start Date End Date Korey Randolph MD [address] [facility] [address] [place] [address] [place] [phone] PCP - General Internal Medicine 07/06/23 documented as of this encounter
--- OUTSIDE RECORDS SUMMARY | 2024-04-07 05:43 | XMS_ITS | Encounter Summary ---
Author Organization [facility] Address [address] [place] [address] Care Team Providers Care Crusher Name Role Phone Korey Randolph MD Primary Care Provider [phone] Encounter Details Date Type Department Care Team (Late st Contact Info) Description 03/15/2024 10:35 AM MUTUEL MACHINE OPERATOR Ancillary Procedure [facility] Neurosurgery S [facility] [address] [address] Carl Dorado MD [address] [address] Status post lumbar spinal fusion Social History Tobacco Use Types Packs/Day Years [...] st Contact Info) Description 03/14/2025 10:30 AM MUTUEL MACHINE OPERATOR Office Visit [facility] Neurosurgery S [facility] [address] [address] Carl Dorado MD [address] [address] documented as of this encounter Procedures Procedure Name Priority Date/Time Associated Diagnosis Comments XR LUMBAR SPINE 2 OR 3 VW Routine 03/15/2024 10:45 AM MUTUEL MACHINE OPERATOR Status post lumbar spinal fusion documented in this encounter Results * XR LUMBAR SPINE 2 OR 3 VW (03/15/2024 10:45 AM MUTUEL MACHINE OPERATOR) Anatomical Region Laterality Modality Spine Computed Radiogr aphy Narrative 03/15/2024 10:56 AM MUTUEL MACHINE OPERATOR L-spine xray report: Clinical Indications: s/p lumbar [...] Visit Diagnoses Diagnosis Status post lumbar spinal fusion Arthrodesis status documented in this encounter Care Teams Crusher Relationship Specialty Start Date End Date Korey Randolph MD [address] [facility] [address] [place] [phone] PCP - General Internal Medicine 07/06/23 documented as of this encounter
--- OUTSIDE RECORDS SUMMARY | 2024-04-07 05:43 | XMS_ITS | Encounter Summary ---
Author Organization [facility] Address [address] [place] [address] Care Team Providers Care Building Construction Engineer Name Role Phone Korey Randolph MD Primary Care Provider [phone] Reason for Visit * Auth/Cert (Routine) Specialty Diagnoses / Procedures Referred By Angelo t Referred To Contact Radiology [facility] Jai Thomas [address] [place] [address] Referral ID Status Reason Start Date Expiration Date Visits Re quested Visits Authorized [id number] 1 1 Encounter Details Date Type Department Care Team (Late st Contact Info) Description 07/13/2023 2:10 PM CDT - 07/13/2023 11:59 PM CDT Hospital Encounter [facility] [address] [place] [address] Carl Dorado MD [address] [facility] [address] [place] [address] Discharge Disposition: Home or Self Care Social History Tobacco Use Types Packs/Day Years Used Date Smoking Tobacco: Never Smokeless Tobacco: Never Alcohol Use Standard Drinks/Week Comments Never 0 (1 standard drink = 0.6 oz pur e alcohol) Sex and Gender Information Value Date Recorded Sex Assigned at Not on file Gender Identity Not on file Sexual Orientation Not on file documented as of this encounter Medications at Time of Discharge Medication Sig Dispensed Refills Start Date End Date oxyCODONE-acetaminophen (PERCOCET) 5-325 mg tabletIndications:Degenerat lynne spondylolisthesis Take 1-2 Tablets by mouth every 4 hours as needed. Max Daily Amount: 12 Tablets 56 Tablet 07/24/2023 tiZANidine (ZANAFLEX) 4 mg Tablet Take 1 Tablet (4 mg) by mouth every 6 hours as needed for Spasm. 90 Tablet 2 07/24/2023 oxyCODONE-acetaminophen (PERCOCET) 5-325 mg tabletIndications:Degenerat lynne spondylolisthesis 1 to 2 tablets every 4 hours prn 90 Tablet 07/31/2023 atorvastatin (LIPITOR) 10 mg tablet Take 1 [...] Tablet 07/26/2023 08/01/2023 oxyCODONE-acetaminophen (PERCOCET) 5-325 mg tabletIndications:Degenerat lynne spondylolisthesis 1 to 2 tablets every 4 hours prn 90 Tablet 07/31/2023 07/24/2023 cyanocobalamin Powder Take by mouth. 07/03 Iron 18 mg Tablet Take by mouth. 07/26/19 Lysine HCl, Bulk, 100 % Powder Take by mouth daily. 07/14/2023 Vit C-Vit H-Ruzttj-ClLb-Lutein (PRESERVISION) 226-90-0.8-5 mg Capsule Take 1 Capsule by mouth daily. 07/26/2023 documented as of this encounter Miscellaneous Notes * Treatment Plan - Connie Joshi, RT - 07/13/2023 3:00 PM CDT Images from the original note were not included. STL IMS Medication and Flush Protocol- CT and MRI Procedures [facility] Approved by: [facility]-Medical Executive Committee Approval Date: 10/20/2022 ORDERS ARE ENTERED ???PER PROTOCOL?? Enter the protocol in the patient's electronic health record using Accelergyrase: .imagingctmriprotocol Communication Orders: For ordered imaging procedures requiring intravenous access: Initiate a peripheral IV, if not already in place, and discontinue IV prior to discharge (if outpatient). Enter order if needed: Insert Peripheral IV Bariatric Oral Contrast: Post-surgical bariatric patients will have markedly reduced ability to drink normal quantities of liquid. Four ounces will be the maximum amount or less if the patient cannot comfortably tolerate. Cancel oral contrast if patient is nauseated or vomiting. Water based contrast only. Medication Orders: Local Anesthetic for use to initiate IV ADULT Lidocaine 4% (L.M.X.4) applied topically ONE TIME prior to IV catheter insertion PRN (L.M.X.4 % should be applied 15 minutes prior to procedure) PEDIATRIC Lidocaine 4% (L.M.X.4) applied topically ONE TIME prior to IV catheter insertion PRN (apply 30 minutes prior to procedure) Sucrose 24% (Squirts) given PO prior to IV catheter insertion (administer 1 - 2 minutes prior to procedure) OR Sucrose 24% (Tootsweet; Sweet-Ease) oral solution 0.2 mL oral (apply to tongue on pacifier or clean, gloved finger), ONE TIME 2 minutes prior to painful procedure. May repeat dose x1 PRN to complete procedure. Sodium chloride 0.9% (normal saline) flush 10 mL PRN for saline lock or medication administration. For respiratory distress, initiate oxygen and/or increase O2 to maintain saturation greater than 90% For all invasive procedures: obtain Lidocaine 1% for intra-procedure administration. If Lidocaine 1% unavailable, may substitute Lidocaine 2%. PROCEDURE SPECIFIC CT MEDICATIONS Any exceptions to these contrast protocols must be approved by a Radiologist and documented in the EHR Progress Notes. When multiple medications are listed with the comment ???OR?? them, select the first option until challenges from product availability make this option unavailable. Cystogram (CT Pelvis): Iopamidol (Isovue 300) 61%, 50 mL, diluted with 250mL of sterile NS. Inject Isovue into 250 mL bag of NS. Clamp ramos catheter prior to instilling solution via catheter. Instill up to 300 mL of Isovue and NS solution into bladder via catheter, one time. CT ORAL CONTRAST PROTOCOLS FOR ADULTS Use Iohexol (Omnipaque) 240 mg/mL for CT scan unless patient has a documented allergy to contrast dye. If allergy present, use Barium Sulfate (EZ Paque) for procedure. Iopamidol (Isovue 300) 300mg/ml: 30ml added to 960mL of clear liquid of patient's choice. Preferredroute is oral. May use nasoenteric tube if needed. Utilize the following administration instructions when there is a need to conserve contrast 15 mL of Iopamidol (Isovue 300) split into two cups (7.5 mL in each cup) Dilute as usual with 960 mL of clear liquid of patient's choice (480 mL in each cup) Have patient drink one cup an hour before the test, wait 30 minutes then start to drink the next cup, leaving a little over an inch in the bottom of the second cup. As the technologist is getting thepatient from the waiting room after an hour, have the patient finish the rest of the second cup so it can coat and fill the stomach OR Iohexol (Omnipaque) 240 mg/mL: 50ml added to 960mL of clear liquid of patient's choice. Preferred route is oral. May use nasoenteric tube if needed. Administer 900mL of the diluted Omnipaque 240, orally, one time only. Barium Sulfate (EZ Paque /Vanilla Silq) 96% oral suspension: Preferred route is oral. May use nasoenteric tube if needed. Administer 900mL of barium sulfate, orally, one time only. Bariatric Patient: Post-Surgery to 1 year- 50 mL total volume. NO carbonated liquids lopamidol (Isovue 300) 300 mg/mL: mixed with water. Draw 50 mL of mixed solution for patient. Preferred route is orally. May use nasoenteric tube if needed. OR lohexol (Omnipaque) 240 mg/mL: mixed with water. Draw 50mL of mixed solution for patient. Preferredroute is orally. May use nasoenteric tube if needed. (SUBJECT TO AVAILABILITY) After 1 year- no more than 236 mL (8oz) total volume. NO carbonated liquids. lopamidol (Isovue 300) 300 mg/mL: mixed with water OR lohexol (Omnipaque) 240 mg/mL: mixed with water (SUBJECT TO AVAILABILITY) CT ORAL CONTRAST PROTOCOLS FOR PEDIATRICS Pediatrics = up to age 18 Pediatric Radiologist will approve of one of the following products selected for procedure. Barium Sulfate (EZ Paque) 96% oral suspension: preferred route is oral. May use nasoenteric tube ifneeded. to 3 months Administer up to 90mL of Barium sulfate, orally, one time only 4 months to 1 year old Administer up to 240mL of Barium sulfate, Orally, One Time Only 1 year old to 5 years old Administer up to 360mL of Barium sulfate, Orally, One Time Only 5 years old to 10 years old Administer up to 480mL of Barium sulfate, Orally, One Time Only Over 10 years old Administer up to 600mL of Barium sulfate, Orally, One Time Only Iopamidol (Isovue 300) 300 mg/mL oral solution Dilute 25mL of Iohexol with 480mL of clear liquid of patient's choice. Administer the diluted solution per age as follows: Preferred route is orally. May use nasoenteric tube if needed. Send any remaining diluted Iohexol solution with the patient's nurse to CT Iopamidol (Isovue) 300 mg/ml oral solution age appropriate guidelines Administer 45mL of diluted Iopamidol oral solution, orally every 30 minutes x 2 doses. 1 month to 1 year old Administer 120mL of diluted Iopamidol oral solution, orally every 30 min x 2 doses. 1 year old to 5 years old Administer 180mL of diluted Iopamidol oral solution, orally every 30 min x 2 doses. 5 years old to 10 years old Administer 240mL of diluted Iopamidol oral solution, orally every 30 min x 2 doses. Over 10 years old Administer 245mL of diluted Iopamidol oral solution, orally every 30 min x 2 doses. OR Iohexol (Omnipaque) 240 mg/mL oral solution Dilute 25mL of Iohexol with 480mL of clear liquid of patient's choice. Administer the diluted solution per age as follows: Preferred route is orally. May use nasoenteric tube if needed. Send any remaining diluted Iohexol solution with the patient's nurse to CT Iohexol (Omnipaque) 240mg/ml oral solution age appropriate guidelines Administer 45mL of diluted Iohexol oral solution, orally every 30 minutes x 2 doses. 1 month to 1 year old Administer 120mL of diluted Iohexol oral solution, orally every 30 min x 2 doses. 1 year old to 5 years old Administer 180mL of Iohexol orally every 30 min x 2 doses. 5 years old to 10 years old Administer 240mL of Iohexol orally every 30 min x 2 doses. Over 10 years old Administer 250mL of Iohexol orally every 30 min x [address] RECTAL CONTRAST PROTOCOLS ADULTS: Iopamidol (Isovue) 300 mg/mL: Dilute 30mL of Isovue with 900mL of warm water in an enema bag. Administer the diluted solution rectally via gravity per patient's tolerance, up to 950mLs, one time only. OR Iohexol (Omnipaque) 240 mg/mL: Dilute 50mL of Omnipaque with 900mL of warm water in an enema bag. Administer the diluted solution rectally via gravity per patient's tolerance, up to 950mLs, one time only. CT IV CONTRAST PROTOCOLS for ADULT ADULTS: (If patient is less than 55kg and confirm dose with radiologist) Iopadmidol (Isovue-300): Administer 2.2mL/kg of Iopamidol 61%, intravenously, one time only. See table below for maximum dose, unless otherwise authorized by radiologist. If exam has been completed before the entire dose has been administered, stop the injection. Multiple doses of iodine contrast within a 24-hour period are a risk factor for IRENE and should be avoided if possible. Emergent or other unusual circumstances where multiple doses of contrast are required in a short interval time should prompt consideration by the referring professional and radiologist to discuss the risks and benefits of contrast media administration. If exam not included in table below, contact radiologist for orders. Procedure Maximum Dose CT Head with Contrast Up to [address] Chest with Contrast Up to [address] Maxillofacial with Contrast Up to [address] Soft Tissue Neck with Contrast CT Chest Abdomen Pelvis with Contrast CT Chest Abdomen with Contrast CT Abdomen Pelvis with Contrast CT Pelvis with Contrast CT Angiogram Examinations (all) CT Soft Tissue Neck and Chest Abdomen Pelvis with Contrast Up to [address] Soft Tissue Neck and Chest with Contrast CT Urogram with Contrast CT IV CONTRAST PROTOCOLS for PEDIATRICS PEDIATRICS: Use weight-based dosing if patient is less than 55kg and confirm dose with radiologist. to 15 years old Administer 2.2mL/kg (to MAX of 80 mL) of Iopamidol (Isovue-300) 61%, intravenously, one time only 15 years old and older Administer 2.2mL/kg (to MAX of 150mL) of Iopamidol (Isovue-300) 61%, intravenously, one time only PROCEDURE SPECIFIC MRI MEDICATIONS: MRI ENTEROGRAPHY: GLUGACON ADMINISTRATION ADULTS: (patient 18 years or older) Patient will receive 2 doses of Glucagon one dose 0.5mg IM administered by RN prior to the MRI exambeginning 2nd dose 0.5mg IV prior to the IV contrast being administered. (If the patient is diabetic call the radiologist to verify administration of Glucagon) PEDIATRICS: If the patient is diabetic call the radiologist to verify administration of Glucagon Pediatric patient weighing 24.9 kg or less should have one dose of Glucagon 0.5mg IM administered by RN prior to MRI exam beginning. Pediatric patient weighing 25 kg or greater should have one dose of Glucagon 1 mg IM administered by RN prior to the MRI exam beginning. MRI UROGRAM: LASIX ADMINISTRATION ADULTS: Call radiologist with any questions regarding administration of Lasix Lasix 0.1mg per kg with a minimum dose of Lasix 5mg IV being given up to a max dose of Lasix 10mg IV being given. The Lasix should be administered by RN prior to the IV contrast being administered. (Hold Lasix if: obstruction, anuria and hypersensitivity to furosemide, and electrolyte imbalance or hypotension should be corrected by RN before administering) MRI IV CONTRAST PROTOCOLS ADULTS: Multihance and Prohance can be used for most MRI scans Prohance should be used primarily. Multihance is useful in specific circumstances as directed by the radiologist or per the appropriate sections established protocols. Group I gadolinium contrast agents shall not be administered. Generally, multiple doses of gadolinium contrast should not be administered within a 24-hour period. In emergent or other unusual circumstances where this is necessary, only Group II agents should beadministered. For Liver Studies: Contact radiologist to determine use of one of the following: Gadobenate Dimeglumine (Multihance) (0.1mmol/0.2mL), Administer 0.1mmol/kg = 0.2mL/kg up to MAX of 20 mL, intravenously, one time only Gadoteridol (Prohance) (0.1mmol/0.2mL), Administer 0.1mmol/kg = 0.2mL/kg up to MAX of 20mL, intravenously, one time only Gadoxetate (Eovist) (2.5 mmol/10mL), Administer 0.025mmol/kg = 0.1mL/kg up to MAX of 10mL, intravenously, one time only PEDIATRICS: Radiologist to determine need for contrast Term neonates up to 2 years: Gadobuterol (Gadavist) (1mmol/mL injection), Administer 0.1mmol/kg = 0.1mL/kg up to MAX of 14mmol=14mL, intravenously, one time only OR Gadobenate Dimeglumine (Multihance) (0.1mmol/mL), Administer 0.1mmol/kg = 0.1mL/kg up to MAX of 14mmol = 14mL, intravenously, one time only 2 years and older Gadobenate Dimeglumine (Multihance) (0.1mmol/0.2mL), Administer 0.1mmol/kg = 0.2mL/kg up to MAX of 20mL, intravenously, one time only OR Gadoteridol (Prohance) (0.1mmol/0.2mL), Administer 0.1mmol/kg = 0.2mL/kg up to MAX of 20mL, intravenously, one time only TABLE 1. ACR Manual Classification of Gadolinium-Based Agents Relative to Nephrogenic Systemic Fibrosis Group I: Agents associated with the greatest number of NSF cases: Gadodiamide (Omniscan?? - [employer]) Gadopentetate dimeglumine (Magnevist?? - [employer]) Gadoversetamide (OptiMARK?? - Guerbet) Group II: Agents associated with few, if any, unconfounded cases of NSF: Gadobenate dimeglumine (MultiHance?? - [employer]) Gadobutrol (Gadavist?? - [employer]; Gadovist in many countries) Gadoteric acid (Dotarem?? - Guerbet, Clariscan - [employer]) Gadoteridol (ProHance?? - [employer]) Group III: Agents for which data remains limited regarding NSF risk, but for which few, if any unconfounded cases of NSF have been reported: Gadoxetate disodium (Eovist - [employer]; Primovist in many countries) * Result Encounter Note - Carl Dorado MD - 07/13/2023 3:00 PM CDT Pre-op MRI shows severe sttenosis and spondy at L45. Mild retrolisthesis L1 on L2. Actual films reviewed. Will plan on L45 quiroz/PSF at our earliest convenience. documented in this encounter Plan of Treatment Upcoming Encounters Date Type Department Care Team (Late st Contact Info) Description 03/14/2025 10:30 AM HEAD OF ACQUISITIONS Office Visit [facility] Neurosurgery [place] [address] [facility] [address] [place] [address] Carl Dorado MD [address] [facility] [address] [place] [phone] documented as of this encounter Procedures Procedure Name Priority Date/Time Associated Diagnosis Comments MRI LUMBAR W WO CONTRAST Stat 07/13/2023 3:28 PM CDT Chronic bilateral low back pain with bilateral sciatica documented in this encounter Results * MRI LUMBAR W WO CONTRAST (07/13/2023 3:28 PM CDT) Anatomical Region Laterality Modality Spine Magnetic Resonan ce 07/13/2023 3:29 PM CDT Impressions 07/13/2023 4:51 PM CDT IMPRESSION: Lumbar spondylosis with L1-2 4.8 mm retrolisthesis and L4-5 4.5 mm anterolisthesis. Dictation location four Narrative 07/13/2023 4:51 PM CDT MR IMAGING OF LUMBAR SPINE WITH AND WITHOUT IV CONTRAST ?? 07/13/2023 HISTORY: Low back pain, chronic. Chronic bilateral low back pain with bilateral sciatica. FINDINGS: Conus ends at lower L1 level. T12-L1 has a disc bulge. L1 level is normal in AP diameter. L1-2 has a 4.8 mm retrolisthesis and disc bulge. This is resulting in mild ventral encroachment on spinal canal at L1-2. L2 level canal is normal in AP diameter. L2-3 shows no disc herniation or stenosis. L3 level is normal in AP diameter. L3-4 shows no disc herniation or stenosis. L4 level is normal in AP diameter. L4-5 has facet joint hypertrophy and 4.5 mm degenerative spondylolisthesis. Facet joint hypertrophy is present. L5 level is normal in AP diameter. L5-S1 shows no disc herniation or stenosis. After contrast administration, there is no abnormal enhancement. No marrow replacement is seen. Procedure Note Patricio Fuentes MD - 07/13/2023 MR IMAGING OF LUMBAR SPINE WITH AND WITHOUT IV CONTRAST 07/13/2023 HISTORY: Low back pain, chronic. Chronic bilateral low back pain with bilateral sciatica. FINDINGS: Conus ends at lower L1 level. T12-L1 has a disc bulge. L1 level is normal in AP diameter. L1-2 has a 4.8 mm retrolisthesis and disc bulge. This is resulting in mild ventral encroachment on spinal canal at L1-2. L2 level canal is normal in AP diameter. L2-3 shows no disc herniation or stenosis. L3 level is normal in AP diameter. L3-4 shows no disc herniation or stenosis. L4 level is normal in AP diameter. L4-5 has facet joint hypertrophy and 4.5 mm degenerative spondylolisthesis. Facet joint hypertrophy is present. L5 level is normal in AP diameter. L5-S1 shows no disc herniation or stenosis. After contrast administration, there is no abnormal enhancement. No marrow replacement is seen. IMPRESSION: Lumbar spondylosis with L1-2 4.8 mm retrolisthesis and L4-5 4.5 mm anterolisthesis. Dictation location four Carl Dorado MD MR ORDERABLES documented in this encounter Visit Diagnoses Diagnosis Chronic bilateral low back pain with bilateral sciatica documented in this encounter Administered Medications Inactive Administered Medications - up to 3 most recent administrations Medication Order MAR Action Action Date Dose Rate Site gadoteridoL (PROHANCE) 279.3 mg/mL injection 12 mL 12 mL, IV, ONE TIME ONLY, 1 dose, On [place] 07/13/23 at 1500, Routine Contrast Given 07/13/2023 3:00 PM CDT 12 mL documented in this encounter Care Teams Building Construction Engineer Relationship Specialty Start Date End Date Korey Randolph MD [address] [facility] [address] [place] [phone] PCP - General Internal Medicine 07/06/23 documented as of this encounter
--- OUTSIDE RECORDS SUMMARY | 2024-04-07 05:43 | XMS_ITS | Encounter Summary ---
Author Organization [facility] Address [address] [place] [address] Care Team Providers Care Government Affairs Fellow Name Role Phone Korey Randolph MD Primary Care Provider [phone] Reason for Visit * Reason Comments Abstract Encounter Details Date Type Department Care Team (Late st Contact Info) Description 07/17/2023 Abstract [facility] [address] [facility] [address] [place] [phone] Provider, Abstract NO ADDRESS ON FILE Social [...] st Contact Info) Description 03/14/2025 10:30 AM STATE INSPECTOR Office Visit [facility] [address] [facility] [address] [place] [phone] Carl Dorado MD [address] [facility] [address] [place] [address] documented as of this encounter Visit Diagnoses Not on filedocumented in this encounter Care Teams Government Affairs Fellow Relationship Specialty Start Date End Date Korey Randolph MD [address] [facility] [address] PCP - General Internal Medicine 07/06/23 documented as of this encounter
--- OUTSIDE RECORDS SUMMARY | 2024-04-07 05:43 | XMS_ITS | Encounter Summary ---
Author Organization [facility] Address [address] [place] [address] Care Team Providers Care Research Archaeologist Name Role Phone Korey Randolph MD Primary Care Provider [phone] Encounter Details Date Type Department Care Team (Late st Contact Info) Description 12/19/2023 External Device Data ST[facility] ABSTRACTION Provider, Abstract [...] st Contact Info) Description 03/14/2025 10:30 AM GAMEPLAY PROGRAMMER Office Visit [facility] [address] [facility] [address] [facility] [address] [place] [address] Carl Dorado MD [address] [facility] [address] [place] [address] documented as of this encounter Visit Diagnoses Not on filedocumented in this encounter Care Teams Research Archaeologist Relationship Specialty Start Date End Date Korey Randolph MD [address] [facility] [place] [place] [phone] PCP - General Internal Medicine 07/06/23 documented as of this encounter
--- OUTSIDE RECORDS SUMMARY | 2024-04-07 05:43 | XMS_ITS | Encounter Summary ---
Author Organization [facility] Address [address] [place] [address] Care Team Providers Care Funeral Assistant Name Role Phone Korey Randolph MD Primary Care Provider [phone] Encounter Details Date Type Department Care Team (Late Contact Info) Description 08/15/2023 10:15 AM CDT Ancillary Procedure [facility] Neurosurgery S [facility] [address] [address] Carl Dorado MD [address] [address] Status post lumbar spinal fusion [...] Encounters Date Type Department Care Team (Late Contact Info) Description 03/14/2025 10:30 AM MANAGER DATA WAREHOUSING Office Visit [facility] Neurosurgery S [facility] [address] [address] Cral Dorado MD [address] [address] documented as of this encounter Procedures Procedure Name Priority Date/Time Associated Diagnosis Comments XR LUMBAR SPINE 2 OR 3 VW Routine 08/15/2023 10:43 AM CDT Status post lumbar spinal fusion documented in this encounter Results * XR LUMBAR SPINE 2 OR 3 VW (08/15/2023 10:43 AM CDT) Anatomical Region Laterality Modality Spine Computed Radiogr aphy Narrative 08/15/2023 2:05 PM CDT L-spine xray report: Clinical Indications: s/p lumbar fusion Technique: AP and lateral lumbar spine films were performed today in clinic and personally reviewed by me. ??The actual films and findings were also reviewed with the patient. ?? My findings/interpretation are: There is no acute evidence of fracture or traumatic subluxation identified. ??Overall sagittal alignment shows normal lumbar lordosis. ??AP alignment of the lumbar spine shows a mild degenerative scoliosis. ?? Vertebrae show normal architecture Intervertebral disc spaces are relatively normal. There is no abnormal movement on dynamic range of motion. There are postoperative changes of posterior instrumented fixation from L4 to L5 with bilateral transpedicular screws and stabilizing rods.Screws are in good position. ??There is no radiographic evidence to suggest hardware fracture or loosening. The sacroiliac joints appear symmetric. Carl Dorado MD DIAGNOSTIC IMAGING O RDERABLES documented in this encounter Visit Diagnoses Diagnosis Status post lumbar spinal fusion Arthrodesis status documented in this encounter Care Teams Funeral Assistant Relationship Specialty Start Date End Date Korey Randolph MD [address] [facility] [address] [place] [phone] PCP - General Internal Medicine 07/06/23 documented as of this encounter
--- OUTSIDE RECORDS SUMMARY | 2024-04-07 05:43 | XMS_ITS | Encounter Summary ---
Author Organization [facility] Address [address] [place] [address] Care Team Providers Care Instrumentation Specialist Name Role Phone Korey Randolph MD Primary Care Provider [phone] Encounter Details Date Type Department Care Team (Late st Contact Info) Description 08/08/2023 External Device Data STL ABSTRACTION Provider, Abstract [...] st Contact Info) Description 03/14/2025 10:30 AM MESS ATTENDANT CREW Office Visit [facility] S [facility] [address] [facility] [address] [place] [address] Carl Dorado MD [address] [facility] [address] [place] [address] documented as of this encounter Visit Diagnoses Not on filedocumented in this encounter Care Teams Instrumentation Specialist Relationship Specialty Start Date End Date Korey Randolph MD [address] [facility] [place] [place] [phone] PCP - General Internal Medicine 07/06/23 documented as of this encounter
--- OUTSIDE RECORDS SUMMARY | 2024-04-07 05:43 | XMS_ITS | Encounter Summary ---
Author Organization [facility] Address [address] [place] [address] Care Team Providers Care Naval Aircrewman Helicopter Name Role Phone Korey Randolph MD Primary Care Provider [phone] Encounter Details Date Type Department Care Team (Late st Contact Info) Description 11/29/2023 External Device Data STL ABSTRACTION Provider, Abstract [...] st Contact Info) Description 03/14/2025 10:30 AM FORESTRY PATROLMAN Office Visit [facility] S [facility] [address] [facility] [address] [place] [address] Carl Dorado MD [address] [facility] [address] [place] [address] documented as of this encounter Visit Diagnoses Not on filedocumented in this encounter Care Teams Naval Aircrewman Helicopter Relationship Specialty Start Date End Date Korey Randolph MD [address] [facility] [place] [address] [place] [phone] PCP - General Internal Medicine 07/06/23 documented as of this encounter
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
--- OUTSIDE RECORDS SUMMARY | 2024-04-07 05:43 | XMS_ITS | Encounter Summary ---
Author Organization [facility] Address [address] [place] [address] Care Team Providers Care Instructional Designer Name Role Phone Korey Randolph MD Primary Care Provider [phone] Encounter Details Date Type Department Care Team (Late st Contact Info) Description 11/23/2023 External Device Data STL ABSTRACTION Provider, Abstract [...] st Contact Info) Description 03/14/2025 10:30 AM SOURCE INSPECTOR Office Visit [facility] S [facility] [address] [facility] [address] [place] [address] Carl Dorado MD [address] [facility] [address] [place] [address] documented as of this encounter Visit Diagnoses Not on filedocumented in this encounter Care Teams Instructional Designer Relationship Specialty Start Date End Date Korey Randolph MD [address] [facility] [place] [place] [phone] PCP - General Internal Medicine 07/06/23 documented as of this encounter
--- OUTSIDE RECORDS SUMMARY | 2024-04-07 05:43 | XMS_ITS | Encounter Summary ---
Author Organization [facility] Address [address] [place] [address] Care Team Providers Care Small Wind Energy Installer Name Role Phone Korey Randolph MD Primary Care Provider [phone] Encounter Details Date Type Department Care Team (Late Contact Info) Description 09/29/2023 10:35 AM CDT Ancillary Procedure [facility] Neurosurgery S [facility] [address] [address] Carl Dorado MD [address] [address] Status post lumbar spinal fusion [...] (Late Contact Info) Description 03/14/2025 10:30 AM WEBBING WEAVER Office Visit [facility] Neurosurgery S [facility] [address] [address] Carl Dorado MD [address] [address] documented as of this encounter Procedures Procedure Name Priority Date/Time Associated Diagnosis Comments XR LUMBAR SPINE 2 OR 3 VW Routine 09/29/2023 10:38 AM CDT Status post lumbar spinal fusion documented in this encounter Results * XR LUMBAR SPINE 2 OR 3 VW (09/29/2023 10:38 AM CDT) Anatomical Region Laterality Modality Spine Computed Radiogr aphy Narrative 09/29/2023 10:40 AM CDT L-spine xray report: Clinical Indications: s/p [...] evidence to suggest hardware fracture or loosening. ??There is bone graft material in the posterior lateral recesses bilaterally The sacroiliac joints appear symmetric. Carl Dorado MD DIAGNOSTIC IMAGING O RDERABLES documented in this encounter Visit Diagnoses Diagnosis Status post lumbar spinal fusion Arthrodesis status documented in this encounter Care Teams Small Wind Energy Installer Relationship Specialty Start Date End Date Korey Randolph MD [address] [facility] [address] [place] [phone] PCP - General Internal Medicine 07/06/23 documented as of this encounter
--- OUTSIDE RECORDS SUMMARY | 2024-04-07 05:43 | XMS_ITS | Encounter Summary ---
Author Organization [facility] Address [address] [place] [address] Care Team Providers Care Exchange Operator Name Role Phone Korey Randolph MD Primary Care Provider [phone] Encounter Details Date Type Department Care Team [...] st Contact Info) Description 03/14/2025 10:30 AM SOLARIS ADMINISTRATOR Office Visit [facility] S [facility] [address] [facility] [address] [place] [address] Carl Dorado MD [address] [facility] [address] [place] [address] documented as of this encounter Visit Diagnoses Not on filedocumented in this encounter Care Teams Exchange Operator Relationship Specialty Start Date End Date Korey Randolph MD 2 [facility] [place] [address] [place] [phone] PCP - General Internal Medicine 07/06/23 documented as of this encounter
--- OUTSIDE RECORDS SUMMARY | 2024-04-07 05:43 | XMS_ITS | Encounter Summary ---
Author Organization [facility] Address [address] [place] [address] Care Team Providers Care Honing Machine Operator Tool Name Role Phone Korey Randolph MD Primary Care Provider [phone] Reason for Visit * Reason Onset Date Comments incision 07/31/2023 Encounter Details Date Type Department Care Team (Late st Contact Info) Description 07/31/2023 Telephone [facility] S [facility] [address] [facility] [address] [place] [address] Carl Dorado MD [address] [facility] [address] [place] [address] incision Social History Tobacco Use Types Packs/Day Years [...] on file documented as of this encounter Miscellaneous Notes * Telephone Encounter - Carl Dorado MD - 07/31/2023 12:42 PM CDT I looked at the pictures. The incision looks good. There is some bruising from blood products underneath the skin and some blisters along the tape from the JELLY dressing. It does not look infected. Iwould not start any antibiotics. Continue observation. * Telephone Encounter - Zahra Pino RN - 07/31/2023 9:18 AM CDT Images from the original note were not included. She states that she has some redness and bleeding at her incisional site. She also states that there is an area that is cloudy yellow on the side of the incision. She denies any drainage from her incision. She is sending a picture. She denies any fever. She is taking Tylenol 1000mg and Tizanidine for pain relief. documented in this encounter Plan of Treatment Upcoming Encounters Date Type Department Care Team (Late st Contact Info) Description 03/14/2025 10:30 AM MEDICAL EDUCATION COORDINATOR Office Visit [facility] Neurosurgery S [facility] [address] [facility] [address] [place] [address] Carl Dorado MD [address] [facility] [address] [place] [address] documented as of this encounter Visit Diagnoses Not on filedocumented in this encounter Care Teams Honing Machine Operator Tool Relationship Specialty Start Date End Date Korey Randolph MD [address] [facility] [address] [place] [phone] PCP - General Internal Medicine 07/06/23 documented as of this encounter
--- OUTSIDE RECORDS SUMMARY | 2024-04-07 05:43 | XMS_ITS | Encounter Summary ---
Author Organization [facility] Address [address] [place] [address] Care Team Providers Care Film Editor Name Role Phone Korey Randolph MD Primary Care Provider [phone] Reason for Visit * Auth/Cert (Routine) Specialty Diagnoses / Procedures Referred By Angelo t Referred To Contact Perioperative Diagnoses SPINAL STENOSIS WITH NEUROGENIC CLAUDICATION Procedures DE POSTERIOR NON-SEGMENTAL INSTRUMENTATION DE ALLOGRAFT FOR SPINE SURGERY ONLY MORSELIZED DE SANCHEZ FACETECTOMY & FORAMOTOMY 1 VRT SGM LUMBAR DE ARTHRODESIS POSTERIOR/PSTLAT TQ 1NTRSPC LUMBAR DE BONE MARROW ASPIRATION BONE GRFG SPI SURG ONLY L4-5 LAMINECTOMY, POSTERIOR SPINAL FUSION Carl Dorado MD [address] [facility] [address] [place] [phone] [facility] Operating Room [address] [place] [address] Referral ID Status Reason Start Date Expiration Date Visits Re quested Visits Authorized [id number] 1 1 Encounter Details Date Type Department Care Team (Late st Contact Info) Description 07/24/2023 11:30 AM CDT - 07/24/2023 2:00 PM CDT Surgery [facility] Operating Room [address] [place] [address] Carl Dorado MD [address] [facility] [address] [place] [phone] LUMBAR 4-5 LAMINECTOMY, POSTERIOR SPINAL FUSION Surgery Details Date/Time Status Location OR Service Patient Class Case Class Case Type Trauma Case? 07/24/2023 11:30 AM Posted [facility] OR OR 11 Neurological Surgery Surgical OP/Extended Care Elective No Panel 1 Procedure LRB Anes Op Region Wound Class Comments LUMBAR 4-5 LAMINECTOMY, POST ERIOR SPINAL FUSION N/A General Spine Lumbar Clean-I Surgeon Surgeon Role Service Panel Carl Dorado MD Primary Neurological Surgery 1 Special Needs PRONE; FLAT GABINO; LEVI FRAME; MIDAS DRILL; CAMACHO; TIGER; STRIP; DBM; INTRA OR AND PORTABLE XR; BASIC LAMI TRAY; DR CRUZ 2HR LATEX ALLERGY documented in this encounter Social History Tobacco [...] Sign Reading Time Taken Comments Blood Pressure 139/56 07/24/2023 9:37 AM CDT Pulse 82 07/24/2023 9:37 AM CDT Temperature 36.6 ??C (97.8 ??F) 07/24/2023 9:37 AM CD T Respiratory Rate 8 07/24/2023 9:37 AM CDT Oxygen Saturation 99% 07/24/2023 9:37 AM CDT Inhaled Oxygen Concentration - - Weight 64.9 kg (143 lb) 07/24/2023 9:24 AM CDT Height 144.8 cm (4' 9 ) 07/24/2023 9:24 AM CDT Body Mass Index 30.94 07/24/2023 9:24 AM CDT documented in this encounter Discharge Instructions * Discharge Instructions* Ingrid Fong RN - 07/26/2023 3:59 PM CDT HOME DISCHARGE INSTRUCTIONS AFTER NEUROSURGERY Contact physician at [phone] for: continued temperature 101 degrees or greater, chills, night sweats, unusual redness, swelling, warmth, drainage or odor from your incision, tenderness, swellingor redness in the calf muscles of either leg, weakness or numbness in your legs, increase in difficulty swallowing or if you develop bowel or bladder control problems Follow Up Appointment: Follow up two weeks post-operatively in office with Gisella NEGRETE [phone] Return to work: This will vary depending [...] by pain medication, please call us at [phone] [facility] Neurosurgery [address] [place] [address] P [phone] F [phone] * Discharge Instr - Activity* Ingrid Fong [...] 500 mg by mouth daily at bedtime. qg-jsh-GX-vit F-ltltth-rivsqhg (PreserVision AREDS 2 Plus MV) 200 mcg-15 mcg- 5 mg-1 mg Capsule Take 1 Capsule by mouth 2 times daily. cranberry fruit concentrate (AZO CRANBERRY ORAL) Take 2 Tablets by mouth daily at bedtime. Bifidobacterium infantis (Align) 4 mg Capsule Take 8 mg by mouth daily. Branscomb Oil Oil Take 1 Dose by mouth [...] this encounter Progress Notes * Gisella Schaeffer, RAFAEL - 07/26/2023 10:23 AM CDT Admit Date: [...] with pinhole durotomy repaired primarily by Dr. oDrado on 07/24/23. Plan: Medical management per hospitalist [...] her to home. Carl Dorado MD, FAANS [facility] Neurosurgery [address] [place] [address]. [place] [phone] * Al Chavez MD - 07/26/2023 10:20 AM CDT General Hospitalist Progress Note Meghana Dueñas 83 y.o. female PCP: Korey Randolph MD [...] mg 0.1-0.4 mg IV see admin instructions Rater, MD Diana atorvastatin (LIPITOR) tablet 10 mg 10 mg Oral daily BEDTIME Carl Dorado MD 10 mg at 138 cholecalciferol (vitamin D3) tablet 2,000 Units 2,000 [...] the L5 for L5 level. DICTATION LOCATION: [address] Results for orders placed during the [...] improving with IV hydration SBP 89--118 hold INSURANCE EXAMINING CLERK antihypertensives continue IV hydration discontinued prior to [...] procedures Referring and communication with other health director of health care marketing Documenting clinical information in the health record [...] Al Chavez MD 07/26/2023 10:20 AM * Maksim Gisellaalbin Castellano, RAFAEL - 07/25/2023 11:41 AM CDT Admit Date: [...] removal Working in collaboration with Dr. Carl Schaeffer, RAFAEL, 07/25/2023 11:42 AM Associated attestation - Carl [...] caffeine, continued observation. Carl Dorado MD, FAANS [facility] Neurosurgery [address] [place] [address]. [place] [address] * Cristina Rosenberg RN - 07/25/2023 7:51 [...] from the original note were not included. [facility] [address] [place] [address]. 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 POST-OPERATIVE DIAGNOSIS: Lumbar stenosis with neurogenic claudication Lumbar spondylolisthesis. NAME OF PROCEDURE: Posterolateral arthrodesis, L4 to L5, 24421. Posterior non-segmental instrumentation, Corelink Anodyne, 39039. L4 wide bilateral lumbar laminectomy, facetectomy, foraminotomy for decompression,96750. Use of morselized autograft and demineralized bone [...] CDT To sds 32 changed to dolores lion sister with pt * Karina-OP - Chavo Leung RN - 07/14/2023 10:23 AM CDT Screening Call for upcoming surgery, if needed a Pre-Surgical Assessment appointment will be made. This RN has verified the following: Name, Date of , Surgery (in their own words)? Yes Current PCP : Agustín if no PCP, gave patient referral line [phone] Current Shot Tube Machine Tender: none Labs in the past 30 days? Yes if yes, date/location: 07/12/23 UA, cbc, bmp, pt, ptt in [facility] CXR in the past 12 months? Yes if yes, date/location: 05/30/23 in [facility] EKG in the past 12 months? [...] send secure chat, with patient attached to [facility]. Include date and time of surgery, in secure chat. Stroke (CVA) within the last 6-9 months? No if yes, must review with anesthesia via secure chat psychiatric surgical time frame Any Surgery at [facility] (no other locations) in the past 12 months? No, any anesthesia complications (ie:malignant hyperthermia, and/or coded r/t anesthesia)? NO Any tobacco product, alcohol or drug use (medical or recreational)? No if YES, PATIENT ADVISED: NO Tobacco products, Alcohol or Drug use 12 HOURS PRIOR TO SURGERY, CASE COULD BE CANCELLED IF SUSPICION of usage on DAY OF SURGERY. Patient verbalized understanding: YES Fpc patient: No, if yes, facility name, nurse you spoke with and phone number: Have you had COVID, within the last 3 months? No, if yes, what were symptoms? Are you currently experiencing any COVID19 s/s, or have you had a known exposure (IF EXPOSED WITH S/S - SEND FOR COVID PCR)? No, if yes, COVID PCR TEST ordered and scheduled? N/A Pattern Painter Needed: No, if yes, Pattern Painter Info Noted in Case Entry, under Additional [...] Patient Name: Meghana Dueñas Admission Date: 07/24/2023 [facility] #: [id number] Dear Doctor, The diagnosis of Lumbar stenosis [...] this coding query please contact me at [email or web address] * Care Plan - Ingrid Fong RN [...] notes. Thank You. Occupational Therapy Evaluation Room: 3224/01 Patient: Meghana Dueñas Date of : 1940 Length Of Stay: 0 Primary reason for admission: ICD-10-CM ICD-9-CM 1. Degenerative spondylolisthesis M43.10 738.4 OT Evaluation Start Time : 1129 OT Evaluation Stop Time : 1156 OT Evaluation Total Minutes: 27 Precautions: Fall, spinal NAME OF PROCEDURE: Posterolateral arthrodesis, L4 to L5, 44308. Posterior non-segmental instrumentation, Corelink Anodyne, 98686. L4 wide bilateral lumbar laminectomy, facetectomy, foraminotomy for decompression,77148. 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 Going to sleep in a recliner @ [...] Dressing: Independent Toileting: Independent Toilet Transfer: Independent [facility] Daily Activity How much help from another [...] meals? 4 - None (independent) Total score *If task not performed, therapist's professional clinical [...] by your provider and support by your child caregiver. Based on today's session: OT Current Discharge [...] notes. Thank You. Physical Therapy Evaluation Room: 5094/01 Patient: Meghana Dueñas Date of : 1940 [...] Situation: [facility] Pt reports having sister and friend in [...] reports stair into home is much shorter. [facility] AM-PAC Basic Mobility How much help from [...] by your provider and support by your child caregiver. Based on today's session: PT Current Discharge [...] patient???s current status. Korey Padilla, PT [facility] #[id number] * Care Plan - Gisella Stanley RN [...] she is normally independent, lives alone in [facility], her sister lives around the corner and her gentlemen friend lives close Patient Discharge Planning Goal: home Patient will potentially discharge to a SNF/NH? No Care Management visited with: patient via in person. Prior to admission, patient resides at: [facility] . Patient resides in a [...] Mobile Relation: Daughter Secondary Emergency Contact: NEVAEH BARCLAY Mobile Relation: Sister Prescription coverage: yes Preferred Pharmacy verified: [id number] - [place] [address] AT [facility] Insurance coverage verified: Payor: [employer] [facility] MEDICARE ADVANTAGE / Plan: [employer] PPO [facility] [id number] / Product Type: PPO / Secondary Insurance:N/A Medicaid Status: NA Has VA Benefits: no Employment Status: retired PCP verified as: Korey Randolph MD Patient has not had a stay at an acute care hospital in the last 30 days. Recent Falls?: Last Known Fall: No falls Plan for transportation at discharge: [facility] Care Management contact information provided. Care Management will continue to follow and assist asneeded. Gisella Stanley, MSN, MHA, RN Care Management [facility] [address] [place] [address] * Care Plan - Ingrid Fong RN - 07/25/2023 2:43 PM CDT 0700 Report received from RN, call light within reach 0930 Assessment per flowsheet, hemavac removed per order, dressed with gauze and tegaderm, call light within reach documented in this encounter Plan of Treatment Upcoming Encounters Date Type Department Care Team (Late st Contact Info) Description 03/14/2025 10:30 AM PASSENGER RATE CLERK Office Visit [facility] Neurosurgery [address] [facility] [address] [facility] [facility] [address] [place] [phone] Carl Dorado MD [address] [facility] [address] [place] [address] documented as of this encounter [...] INTRA OR AND PORTABLE XR; BASIC LAMI TRAY; DR CRUZ 2HR LATEX ALLERGY documented in this encounter Results * VITAMIN B12 LEVEL (07/25/2023 10:55 AM CDT) VITAMIN B12 725 232 - 1,245 pg/mL 07/25/2023 12:36 PM CDT [facility] Zaelab [facility] Blood Venipuncture / Unknown 07/25/2023 10:55 AM CDT 07/25/2023 11:27 AM CDT Al Chavez MD CHEMISTRY ORDER MICKY [facility] Zaelab [facility] CLIA# [id number] [place] [address] * (ABNORMAL) FERRITIN (07/25/2023 10:55 AM CDT) FERRITIN 182.0(H) 13.0 - 150.0 ng/mL 07/25/2023 1:48 PM CDT [facility] Blood Venipuncture / Unknown 07/25/2023 10:55 AM CDT 07/25/2023 11:27 AM CDT Al Chavez MD CHEMISTRY ORDER MICKY Performing Organization Address [facility]/ZIP Co de Phone Number [id number] [place] [address] * (ABNORMAL) IRON, TIBC, AND PERCENT SATURATION (07/25/2023 10:55 AM CDT) IRON 41 37 - 145 ug/dL 07/25/2023 1:48 PM CDT [facility] TIBC 217(L) 265 - 497 ug/dL 07/25/2023 1:48 PM CDT [facility] IRON % SATURATION 19(L) 20 - 55 % 07/25/2023 1:48 PM CDT [facility] TRANSFERRIN 171(L) 200 - 360 mg/dL 07/25/2023 1:48 PM CDT [facility] Blood Venipuncture / Unknown 07/25/2023 10:55 AM CDT 07/25/2023 11:27 AM CDT Al Chavez MD CHEMISTRY ORDER MICKY Performing Organization Address City/[facility]/ZIP Co de Phone Number [facility] CLIA# [id number] [place] [address] * (ABNORMAL) BASIC METABOLIC PANEL (07/25/2023 10:55 AM CDT) SODIUM 141 136 - 145 mmol/L 07/25/2023 12:33 PM CDT [facility] POTASSIUM 4.4 3.4 - 5.1 mmol/L 07/25/2023 12:33 PM CDT [facility] Comment:Slightly hemolyzed. Result may be falsely elevated. CHLORIDE 111(H) 98 - 107 mmol/L 07/25/2023 12:33 PM CDT [facility] CO2 18(L) 22 - 29 mmol/L 07/25/2023 12:33 PM T [facility] CALCIUM 8.2(L) 8.6 - 10.4 mg/dL 07/25/2023 12:33 PM CDT [facility] BUN 13 6 - 20 mg/dL 07/25/2023 12:33 PM T [facility] CREATININE 0.61 0.51 - 0.95 mg/dL 07/25/2023 12:33 PM T [facility] Comment:The GFR result is no t clinically significant on patients <18 or >70 years of age. GLUCOSE 128(H) 74 - 99 mg/dL 07/25/2023 12:33 PM T [facility] GFR >60 mL/min/1.7 3 sq meter 07/25/2023 12:33 PM T [facility] Comment:eGFR calculated with 2020 CKD-EPI equation. Vegetarian diet, extremely high or low muscle mass, and may affect results. Cystatin C with Glomerular Filtration Rate is a suitable alternative for these patients. ANION GAP 12 8 - 16 mmol/L 07/25/2023 12:33 PM T [facility] Blood Venipuncture / Unknown 07/25/2023 10:55 AM CDT 07/25/2023 11:27 AM CDT Al Chavez MD CHEMISTRY ORDER MICKY [facility] CLIA# [id number] [place] [address] * (ABNORMAL) CBC WITH DIFFERENTIAL (07/25/2023 10:55 AM CDT) WBC 12.3(H) 4.5 - 10.5 K/uL 07/25/2023 11:48 AM CDT [facility] RBC 3.50(L) 3.90 - 4.90 M/uL 07/25/2023 11:48 AM CDT [facility] HEMOGLOBIN 11.1(L) 11.8 - 14.8 g/dL 07/25/2023 11:48 AM CDT [facility] HEMATOCRIT 34.1(L) 35.5 - 44.0 % 07/25/2023 11:48 AM CDT [facility] MCV 97.3 82.0 - 99.0 fL 07/25/2023 11:48 AM CDT [facility] MCH 31.7 27.8 - 34.5 pg 07/25/2023 11:48 AM CDT [facility] MCHC 32.5 32.5 - 35.5 g/dL 07/25/2023 11:48 AM CDT [facility] RDW 13.9 11.5 - 14.5 % 07/25/2023 11:48 AM CDT [facility] PLATELETS 143(L) 160 - 420 K/uL 07/25/2023 11:48 AM CDT [facility] MPV 10.4 8.7 - 12.7 fL 07/25/2023 11:48 AM CDT [facility] NEUTROPHILS 84 % 07/25/2023 11:48 AM CDT [facility] LYMPHOCYTES 8 % 07/25/2023 11:48 AM CDT [facility] MONOCYTES 9 % 07/25/2023 11:48 AM CDT [facility] EOSINOPHILS 0 % 07/25/2023 11:48 AM CDT [facility] BASOPHILS 0 % 07/25/2023 11:48 AM CDT [facility] NEUTROPHIL ABSOLUTE 10.30(H) 1.90 - 7.00 K/uL 07/25/2023 11:48 AM CDT [facility] LYMPHOCYTE ABSOLUTE 0.90 0.70 - 4.50 K/uL 07/25/2023 11:48 AM CDT [facility] MONOCYTE ABSOLUTE 1.10 0.10 - 1.30 K/uL 07/25/2023 11:48 AM CDT [facility] EOSINOPHIL ABSOLUTE 0.00 0.00 - 0.70 K/uL 07/25/2023 11:48 AM CDT [facility] BASOPHILS ABSOLUTE 0.00 0.00 - 0.20 K/uL 07/25/2023 11:48 AM CDT [facility] Blood Venipuncture / Unknown 07/25/2023 10:55 AM CDT 07/25/2023 11:39 AM CDT Al Chavez MD HEMATOLOGY ORDE KULWANT [facility] CLIA# [id number] [address] [place] [address] * XR LUMBAR SPINE 1 VW (07/24/2023 4:43 PM CDT) Anatomical Region Laterality Modality Spine Computed Radiogr aphy 07/24/2023 4:44 PM CDT Narrative 07/24/2023 4:53 PM CDT XR LUMBAR SPINE 1 VW DATE: 07/24/2023 4:43 PM HISTORY: Intraoperative evaluation. FINDINGS: Intraoperative image and straight bilateral pedicle screws and posterior fusion at the L5 for L5 level. DICTATION LOCATION: Location [address] [place] [address] Procedure Note Hardik Chapin MD - 07/24/2023 XR LUMBAR SPINE 1 VW DATE: 07/24/2023 4:43 PM HISTORY: Intraoperative evaluation. FINDINGS: Intraoperative image and straight bilateral pedicle screws and posterior fusion at the L5 for L5 level. DICTATION LOCATION: Location [address] [place] [address] Carl Dorado MD DIAGNOSTIC IMAGING O RDERABLES * XR LUMBAR SPINE 1 VW (07/24/2023 3:55 PM CDT) Anatomical Region Laterality Modality Spine Computed Radiogr aphy 07/24/2023 3:55 PM CDT Impressions 07/24/2023 4:13 PM CDT FINDINGS/IMPRESSION: ?? An intraoperative image of the lateral lumbar spine demonstrates localization of the L4 level. DICTATION LOCATION: Location [address] [place] [address] ?? Narrative 07/24/2023 4:13 PM CDT EXAMINATION: [...] of the L4 level. DICTATION LOCATION: Location [address] [place] [address] Carl Dorado MD DIAGNOSTIC IMAGING O RDERABLES * XR LUMBAR SPINE 1 VW (07/24/2023 3:53 PM CDT) Anatomical Region Laterality Modality Spine Computed Radiogr aphy 07/24/2023 3:54 PM CDT Impressions 07/24/2023 4:02 PM CDT FINDINGS/IMPRESSION: ?? 2 intraoperative images of the lateral lumbar spine demonstrate localization of the L3 level. DICTATION LOCATION: Location [address] [place] [address] ?? Narrative 07/24/2023 4:02 PM CDT EXAMINATION: [...] of the L3 level. DICTATION LOCATION: Location [address] [place] [address] Carl Dorado MD DIAGNOSTIC IMAGING O RDERABLES documented in this encounter Visit Diagnoses Not [...] Given 07/24/2023 8:37 PM CDT 10 mg BUPivacaine-EPINEPHrine (PF) (SENSORCAINE MPF WITH EPI) 0.5 %-1:200,000 injection INTRA-PROCEDURE PRN, Starting on Mon07/24/23 at 1521, Until Mon07/24/23 at 1718, Routine, Intra-op Given 07/24/2023 3:21 PM CDT 10 mL Operative Site ceFAZolin (ANCEF) 1,000 mg in dextrose (iso-osmotic) [...] 2036 (Given - Provider: Cristina Acevedo RN) 0222 (Given - Provider: Cristina Acevedo RN)0930 (Given - Provider: Ingrid Fong RN)1214 (Given - Provider: Ingrid Fong RN)2138 (Given - Provider: Anastasiya Dewey RN) 0000 [...] 1 Tablet by mouth daily at bedtime. 2037 (Given - Provider: Cristina Acevedo RN) 2137 (Given - Provider: Anastasiya eDwey RN) ceFAZolin (ANCEF) 1,000 mg in dextrose [...] - Take 2,000 Units by mouth daily. 928 (Given - Provider: Ingrid Fong RN) 916 (Given - Provider: Ingrid Fogn RN) docusate sodium (COLACE) 50 mg/5 mL oral solution 50 mg 50 mg, Oral, DAILY, First dose on Mon07/25/23 at 0900, Until Discontinued, Routine, Previous Med: docusate sodium (COLACE) 50 mg capsule - Orig Sig - Take 50 mg by mouth daily. 925 (Given - Provider: Ingrid Fong RN) 915 (Given - Provider: Ingrid Fong RN) ketorolac (TORADOL) injection 15 mg (COMPLETED) 15 mg, IV, ONE TIME ONLY, 1 dose, On Mon07/24/23 at 1815, Stat 1813 (Given - Provider: Elisa Fitzgerald RN) meclizine (ANTIVERT) tablet 25 mg 25 mg, Oral, EVERY 8 HOURS, 5 doses, First dose on Mon07/25/23 at 1200, Last dose on Mon07/26/23 at 2100, Routine 1213 (Given - Provider: Ingrid Fong RN)2138 (Given - Provider: Anastasiya Dewey, JESSICA) 0547 (Given - Provider: Anastasiya Dewey, JESSICA)1331 (Given - Provider: Ingrid Fong RN) naloxone [...] daily. , Indication: Gastroesophageal reflux disease (GERD) 30 (Given - Provider: Ingrid Fong RN) 0918 [...] Floor 2042 (New Bag - Provider: Cristina Acevedo RN) 0403 (Rate Change - Provider: Cristina Acevedo RN) sodium chloride 0.9% infusion (CANCELED) IV, at [...] RN) 0919 (New Bag - Provider: Ingrid Fong, JESSICA) PRN Medication Order 07/24/2023 07/25/2023 07/26/2023 BUPivacaine-EPINEPHrine [...] at 2016, Nausea/Emesis, Routine, Post-op - Floor 2034 (Given - Provider: Cristina Acevedo RN) 0232 (Given - Provider: Cristina Acevedo RN) oxyCODONE (ROXICODONE) tablet 10 mg 10 mg, Oral, EVERY 4 HOURS PRN, Starting on Mon07/24/23 at 1943, Until Mon07/26/23 at 2016, Pain (See admin instructions), Routine, Post-op - Floor 0222 (Given - Provider: Cristina Acevedo RN) oxyCODONE (ROXICODONE) tablet 5 mg 5 mg, Oral, EVERY 4 HOURS PRN, Starting on Mon07/24/23 at 1943, Until Mon07/26/23 at 2016, Pain (See admin instructions), Routine, Post-op - Floor documented in this encounter Care Teams Film Editor Relationship Specialty Start Date End Date Korey Randolph MD [address] [place] [place] [address] PCP - General Internal Medicine 07/06/23 documented as of this encounter
--- OUTSIDE RECORDS SUMMARY | 2024-04-07 05:44 | XMS_ITS | Encounter Summary ---
Author Organization [facility] Address [address] [facility] Attn: [place] [address] Care Team Providers Care Urban Forester Name Role Phone Korey Randolph MD Primary Care Provider [phone] Encounter Details Date Type Department Care Team (Late st Contact Info) Description 07/12/2023 Orders Only Initial Department [address] [place] [address] ATTN: [place] [address] Provider, Historical Social History Tobacco Use Types Packs/Day Years [...] st Contact Info) Description 03/14/2025 10:30 AM TRAVEL 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 Office Visit [facility] Neurosurgery [address] [facility] [address] [facility] [address] [place] [address] Carl Dorado MD [address] [facility] [address] [place] [address] documented as of this encounter Procedures Procedure Name Priority Date/Time Associated Diagnosis Comments CBC WITH DIFFERENTIAL Routine 07/12/2023 10:51 AM CDT PTT Routine 07/12/2023 10:51 AM CDT PROTIME-INR Routine 07/12/2023 10:51 AM CDT BASIC METABOLIC PANEL Routine 07/12/2023 10:51 AM CDT documented in this encounter Results * CBC WITH DIFFERENTIAL (07/12/2023 10:51 AM CDT) WBC 6.4 3.8 - 10.8 Thousand/u L [facility] RBC 4.09 3.80 - 5.10 Million/uL [facility] HEMOGLOBIN 13.1 11.7 - 15.5 g/dL [facility] HEMATOCRIT 38.9 35.0 - 45.0 % [facility] MCV 95.1 80.0 - 100.0 fL [facility] MCH 32.0 27.0 - 33.0 pg [facility] MCHC 33.7 32.0 - 36.0 g/dL [facility] RDW 12.6 11.0 - 15.0 % [facility] PLATELETS 185 140 - 400 Thousand/u L [facility] MPV 11.9 7.5 - 12.5 fL [facility] NEUTROPHIL ABSOLUTE 3,846 1,500 - 7,800 cells/uL [facility] LYMPHOCYTE ABSOLUTE 1,651 850 - 3,900 cells/uL [facility] MONOCYTE ABSOLUTE 730 200 - 950 cells/uL [facility] EOSINOPHIL ABSOLUTE 122 15 - 500 cells/uL [facility] BASOPHILS ABSOLUTE 51 0 - 200 cells/uL [facility] NEUTROPHIL 60.1 % [facility] LYMPHOCYTES 25.8 % [facility] MONOCYTE 11.4 % [facility] EOSINOPHILS 1.9 % [facility] BASOPHILS 0.8 % [facility] Comment: PATIENT UNABLE TO VOID; ADVISED TO RETURN FOR COLLECTION. Test Performed at: [employer] [address] [place], [place] ??[address] Loyda Mejia MD 07/12/2023 10:5 1 AM CDT 07/12/2023 10:51 AM CDT Carl Dorado MD HEMATOLOGY ORDERABLE S Performing Organization Address City/[facility]/ZIP Co de Phone Number [facility] [phone] [facility] [address] * (ABNORMAL) BASIC METABOLIC PANEL (07/12/2023 10:51 AM CDT) GLUCOSE 85 65 - 99 mg/dL [facility] Comment: ? Fasting reference interval BUN 30(H) 7 - 25 mg/dL [facility] CREATININE 0.73 0.60 - 0.95 mg/dL [facility] GFR 82 > OR = 60 mL/min/1.7 3m2 [facility] BUN/CREAT RATIO 41(H) 6 - 22 (calc) [facility] SODIUM 141 135 - 146 mmol/L [facility] POTASSIUM 4.4 3.5 - 5.3 mmol/L [facility] CHLORIDE 107 98 - 110 mmol/L [facility] CO2 27 20 - 32 mmol/L [facility] CALCIUM 9.7 8.6 - 10.4 mg/dL [facility] Comment: PATIENT UNABLE TO VOID; ADVISED TO RETURN FOR COLLECTION. Test Performed at: [facility] ??[phone] Loyda Mejia MD 07/12/2023 10:5 1 AM CDT 07/12/2023 10:51 AM CDT Carl Dorado MD CHEMISTRY ORDERABLES Performing Organization Address City/[facility]/ZIP Co de Phone Number [facility] [phone] [address] * PROTIME-INR (07/12/2023 10:51 AM CDT) Pathologist [facility] INR 1.1 [facility] Comment: Reference Range ? 0.9-1.1 Moderate-intensity Warfarin Therapy 2.0-3.0 Higher-intensity Warfarin Therapy ?? 3.0-4.0 PROTIME 11.1 9.0 - 11.5 sec [facility] BarnesBenita Yates Comment: For additional information, please refer to http://[employer]COM[employer]faq/KMO215 (This link is being provided for informational/ educational purposes only.) PATIENT UNABLE TO VOID; ADVISED TO RETURN FOR COLLECTION. Test Performed at: [facility] [address] [place], [place] ??[address] Laura-Lieu Thi Vo 07/12/2023 10:5 1 AM CDT 07/12/2023 10:51 AM CDT Carl Dorado MD HEMATOLOGY ORDERABLE S Performing Organization Address [facility] Phone Number [facility] [phone] [facility] [address] [place] [address] * PTT (07/12/2023 10:51 AM CDT) PTT 28 23 - 32 sec [facility] Comment: This test has not been validated for monitoring unfractionated heparin therapy. For testing that is validated for this type of therapy, please refer to the Heparin Anti-Xa assay (test code 50434). For additional information, please refer to http://ERCOM.[employer]/faq/RNH460 (This link is being provided for informational/educational purposes only.) Test Performed at: [facility] [address] [place], [place] ??[address] Laura-Lieu Thi Vo 07/12/2023 10:5 1 AM CDT 07/12/2023 10:51 AM CDT Carl Dorado MD HEMATOLOGY ORDERABLE S Performing Organization Address [facility] Phone Number [facility] [phone] [facility] [address] [place] [address] documented in this encounter Visit Diagnoses Not on filedocumented in this encounter Care Teams Urban Forester Relationship Specialty Start Date End Date Korey Randolph MD [address] [place] [address] DR [place]ATO [facility] [place] [address] PCP - General Internal Medicine 07/06/23 documented as of this encounter
--- OUTSIDE RECORDS SUMMARY | 2024-04-07 05:44 | XMS_ITS | Encounter Summary ---
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 CLARITY UA CLEAR CLEAR [facility] SPECIFIC GRAVITY UA 1.015 1.001 - 1.035 [facility] PH UA 5.5 5.0 - 8.0 [facility] GLUCOSE UA NEGATIVE NEGATIVE [facility] BILIRUBIN UA NEGATIVE NEGATIVE [facility] KETONES UA NEGATIVE NEGATIVE [email or web address] [facility] BLOOD UA NEGATIVE NEGATIVE [email or web address] PROTEIN UA NEGATIVE NEGATIVE [facility] NITRITE UA NEGATIVE NEGATIVE [facility] LEUKOCYTE ESTERASE UA NEGATIVE NEGATIVE [facility] WBC UA NONE SEEN < OR = 5 /HPF [facility] RBC UA NONE SEEN < OR = 2 /HPF [facility] EPITHELIAL CELLS, URINE NONE SEEN < OR = 5 /HPF [facility] BACTERIA UA NONE SEEN NONE SEEN /HPF [facility] CA OXALATE CRYSTAL FEW NONE OR FEW /HPF [facility] HYALINE CAST NONE SEEN NONE SEEN /LPF [facility] URINE NOTE [facility] Comment: This urine was analyzed for the presence of WBC, RBC, bacteria, casts, and other formed elements. Only those elements seen were reported. URINE CULTURE [facility] Comment: NO CULTURE INDICATED SPLIT 07/12/2023 FROM [id number] FASTING:UNKNOWN FASTING: UNKNOWN Test Performed at: [place] [address] [address] [place] ??[phone] Loyda Mejia 07/12/2023 2:07 PM CDT 07/12/2023 2:09 PM CDT Carl Dorado MD URINE ORDERABLES [facility] [phone] [place] [address] [address] [place] [address] documented in this encounter Visit Diagnoses Not on filedocumented in this encounter Care Teams Channel Sales Director Relationship Specialty Start Date End Date Korey Randolph MD [address] [facility] [address] AM[address] [place] [phone] PCP - General Internal Medicine 07/06/23 documented as of this encounter
--- OUTSIDE RECORDS SUMMARY | 2024-04-07 05:44 | XMS_ITS | Encounter Summary ---
Author Organization [facility] Address [address] [place] [address] Care Team Providers Care Clinique Counter Manager Name Role Phone Korey Randolph MD Primary Care Provider [phone] Encounter Details Date Type Department Care Team (Late st Contact Info) Description 07/11/2023 External Device Data STL ABSTRACTION Provider, Abstract [...] st Contact Info) Description 03/14/2025 10:30 AM PRIVACY COMPLIANCE MANAGER Office Visit [facility] Neurosurgery [address] [facility] [address] [facility] [address] [place] [address] Carl Dorado MD [address] [facility] [address] [place] [address] documented as of this encounter Visit Diagnoses Not on filedocumented in this encounter Care Teams Clinique Counter Manager Relationship Specialty Start Date End Date Korey Randolph MD [address] [place] [address] [place] [phone] PCP - General Internal Medicine 07/06/23 documented as of this encounter
--- OUTSIDE RECORDS SUMMARY | 2024-04-07 05:44 | XMS_ITS | Encounter Summary ---
Author Organization [facility] Address 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
--- OUTSIDE RECORDS SUMMARY | 2024-04-07 05:44 | XMS_ITS | Encounter Summary ---
Author Organization [facility] Address [address] [place] [address] Care Team Providers Care Sash Maker Name Role Phone Korey Randolph MD Primary Care Provider [phone] Encounter Details Date Type Department Care Team [...] st Contact Info) Description 03/14/2025 10:30 AM COMPUTER OPERATIONS TECHNICIAN Office Visit [facility] Neurosurgery [address] [facility] [address] [facility] [address] [place] [address] Carl Dorado MD [address] [facility] [address] [place] [address] documented as of this encounter Visit Diagnoses Not on filedocumented in this encounter Care Teams Sash Maker Relationship Specialty Start Date End Date Korey Randolph MD [address] [place] [address] [place] [phone] PCP - General Internal Medicine 07/06/23 documented as of this encounter
--- OUTSIDE RECORDS SUMMARY | 2024-04-07 05:44 | XMS_ITS | Encounter Summary ---
Author Organization [facility] Address [address] [place] [address] Care Team Providers Care Systems Mgr Name Role Phone Korey Randolph MD Primary Care Provider [phone] Encounter Details Date Type Department Care Team [...] st Contact Info) Description 03/14/2025 10:30 AM LINUX ADMIN ENGINEER Office Visit [facility] Neurosurgery [address] [facility] [address] [facility] [address] [place] [address] Carl Dorado MD [address] [facility] [address] [place] [address] documented as of this encounter Visit Diagnoses Not on filedocumented in this encounter Care Teams Systems Mgr Relationship Specialty Start Date End Date Korey Randolph MD [address] [place] [address] [place] [phone] PCP - General Internal Medicine 07/06/23 documented as of this encounter
--- OUTSIDE RECORDS SUMMARY | 2024-04-07 05:44 | XMS_ITS | Encounter Summary ---
Author Organization [facility] Address 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 Office Visit [facility] [address] [facility] [address] [place] [address] Carl Dorado MD [address] [address] Pending Results Name Type Priority Associated Diagnoses Date /Time CBC WITH DIFFERENTIAL Lab Routine Preop examination 07/12/2023 10:35 AM CDT BASIC METABOLIC PANEL Lab Routine Preop examination 07/12/2023 10:35 AM CDT PTT Lab Routine Preop examination 07/12/2023 10:35 AM CDT PROTIME-INR Lab Routine Preop examination 07/12/2023 10:35 AM CDT Scheduled Orders Name Type Priority Associated Diagnoses Orde r Schedule CBC WITH DIFFERENTIAL Lab Routine Preop examination Expected: 07/12/2023, Expires: 07/11/2024 BASIC METABOLIC PANEL Lab Routine Preop examination Expected: 07/12/2023, Expires: 07/11/2024 PTT Lab Routine Preop examination Expected: 07/12/2023, Expires: 07/11/2024 PROTIME-INR Lab Routine Preop examination Expected: 07/12/2023, Expires: 07/11/2024 documented as of this encounter Visit Diagnoses Diagnosis Preop examination- Primary Preoperative examination, unspecified documented in this encounter Care Teams Administrative Technician Relationship Specialty Start Date End Date Korey Randolph MD [address] [place] [address] DR AMATO [address] [place] [phone] PCP - General Internal Medicine 07/06/23 documented as of this encounter
--- OUTSIDE RECORDS SUMMARY | 2024-04-07 05:44 | XMS_ITS | Encounter Summary ---
Author Organization [facility] Address [address] [place] [address] Care Team Providers Care Thermal Intelligence Analyst Name Role Phone Korey Randolph MD Primary Care Provider [phone] Encounter Details Date Type Department Care Team (Latest Contact Info) Description 07/07/2023 9:50 AM CDT Ancillary Procedure [facility] Neurosurgery S [facility] [address] [facility] [address] [place] [address] Carl Dorado MD [address] [address] Degenerative spondylolisthesis Social History Tobacco Use Types Packs/Day Years [...] st Contact Info) Description 03/14/2025 10:30 AM VALVE TESTER Office Visit [facility] [address] [phone] Carl Dorado MD [address] [phone] documented as of this encounter Procedures Procedure Name Priority Date/Time Associated Diagnosis Comments XR LUMBAR SPINE 4+ VW Routine 07/07/2023 10:14 AM CDT Degenerative spondylolisthesis documented in this encounter Results * XR LUMBAR SPINE 4+ VW (07/07/2023 10:14 AM CDT) Anatomical Region Laterality Modality Spine Computed Radiogr aphy Narrative 07/07/2023 10:34 AM CDT Clinical Indications: back pain, spondylolisthesis, and evaluate possible instability Technique: AP/lateral lumbar spine films with flexion and extension were performed today in clinic and personally reviewed by me. ??The actual films and findings were also reviewed with the patient. ?? My findings/interpretation are: There is no acute evidence of fracture or traumatic subluxation identified. ??Overall sagittal alignment shows lumbar lordosis. ??AP alignment of the lumbar spine is maintained. ?? Vertebrae show normal architecture Intervertebral disc spaces show significant degeneration and collapse throughout. There is anterolisthesis of L4 on L5 with movement on dynamic range of motion from 3 to 8 mm. The sacroiliac joints appear symmetric. Carl Dorado MD DIAGNOSTIC IMAGING O [facility] documented in this encounter Visit Diagnoses Diagnosis Degenerative spondylolisthesis Acquired spondylolisthesis documented in this encounter Care Teams Thermal Intelligence Analyst Relationship Specialty Start Date End Date Korey Randolph MD [address] [place] [address] DR AMATO [address] [place] [phone] PCP - General Internal Medicine 07/06/23 documented as of this encounter
--- OUTSIDE RECORDS SUMMARY | 2024-04-07 05:44 | XMS_ITS | Continuity of Care Document ---
Author Organization [employer] [facility] Address [address] [place] [address] [place] [phone] Phone Care Team Providers Care Bonding Agent Name Role Phone Norman KIMBERLY Gisella Unavailable Unavailable Allergies, Adverse Reactions, Alerts Substance Reaction Status Criticality latex Active No Information Dzpgmqq-HIT-PlN Reductase Inhibitors Acti ve No Information Medications Medication Instructions Dosage Effective Dates (start - stop) Status Comments AREDS 2 ORAL CAPSULE - Active montelukast 10 mg tablet take 1 tablet by oral route every day in the evening 10 MG - Active atorvastatin 10 mg tablet take 1 tablet by oral route every day 10 MG - Active pantoprazole 40 mg tablet,delayed release take 1 tablet by oral route every day 40 MG - Active multivitamin capsule take 1 capsule by o ral route every day - Active Procedures Procedure Date SCODI, Retina No Charge Refraction Eye Exam & Treatment SCODI, Retina No Charge Optomap Fundus Photos 023 Eye Exam & Treatment SCODI, Retina No Charge Optomap Fundus Photos 022 Eye Exam & Treatment Jono Eye Mask Office/outpatient Visit, Est No Charge Optomap Fundus Photos 020 SCODI, Retina Eye Exam & Treatment SCODI, Retina Office/outpatient Visit, Est No Charge Refraction Eye Exam & Treatment Post-op Follow-up Visit SCODI, Retina No Charge Refraction After Cataract Laser Surgery Office/outpatient Visit, Est No Charge Refraction Eye Exam & Treatment Office/outpatient Visit, Est Post-op Follow-up Visit No Charge Refraction Office/outpatient Visit, Est After Cataract Laser Surgery Office/outpatient Visit, Est No Charge Refraction Post-op Follow-up Visit No Charge Refraction Remove Cataract, Post Op Care 4 Remove Cataract, Insert Lens,Comanaged O IOLMaster-Professional Post-op Follow-up Visit No Charge Refraction Remove Cataract, Post Op Care 4 Remove Cataract, Insert Lens,Comanaged S IOLMaster-Professional Office/outpatient Visit, Est No Charge Refraction IOLMaster-Technical Office/outpatient Visit, Est Post-op Follow-up Visit Revision Of Iris Revision Of Iris Eye Exam & Treatment Special Eye Evaluation Eye Exam & Treatment Contact Lens Hydrophilic, Spherical Contact Lens Hydrophilic, Spherical Contact Lens Hydrophilic, Spherical Contact Lens Hydrophilic, Spherical Cntct Lens Hydrophilic Toric Or Prism Ba llast Medical Tax Cntct Lens Hydrophilic Toric Or Prism Ba llast Eye Exam & Treatment Contact Lens Hydrophilic, Spherical Cntct Lens, Gas Permeable, Toric, Prism Ballast Cntct Lens Hydrophilic Toric Or Prism Ba llast Contact Lens Hydrophilic, Spherical Cntct Lens Hydrophilic Toric Or Prism Ba llast Contact Lens Hydrophilic, Spherical Eye Exam, New Patient Advance Directives Directive Yes / No Effective Date File Name No Information Encounters Encounter Description Practice Location Reason(s) For Visit Diagnoses Date Provider Providers Copied on Encounter [facility], [address], [place], [place], [address], tel:[phone] [place] Professional Complete Exam (chief complaint) Vitreous degeneration , bilateralAst eroid hyalosis of right eyePseudopha maria of both eyesHistory of laser iridotomyDry eye syndrome of bilateral lacrimal glandsExudat lynne age-rel mclr degn, bi, with actv chrdl neovas 4 Norman OD Gisella. [facility] [address], [address], [place], [place], [address], [place]. tel:[phone] Ken Andrade MD.Referri haim Provider: Pankaj Dewitt, [address], [place], [address] . tel:[phone] [facility], [address], [place], [place], [address], [place] tel:[phone] [place] Professional Complete Exam (chief complaint) Exdtve age-rel mclr degn, right eye, with actv chrdl neovasNexdtv e age-related mclr degn, left eye, intermed dry stagePseudop hakia of both eyesDry eye syndrome of bilateral lacrimal glands 3 Nestor Lira. [address] [facility] [address], [place], [place], [address], [place]. tel:[phone] Ken Andrade MD.Referri haim Provider: Pankaj Dewitt, [address], [place], [address] . tel:[phone] [facility], [address], [place], [place], [address], [place] tel:[phone] SEC [place] Professional Complete Exam (chief complaint) Pseudophakia of both eyesExdtve age-rel mclr degn, right eye, with actv chrdl neovasNexdtv e age-related mclr degn, left eye, intermed dry stage 2 Nestor Lira. [address], [place], [place], [address], [place]. tel:[phone] Specialist : Ken Andrade MD, [address] [place] [address], [address]. tel:[phone] erring Provider: Pankaj Dewitt, [address] [facility] [address], [place], [address] . tel:[phone] Office/outpa tient Visit, [facility], [address], [place], [place], [address], [place] tel:[phone] [place] Professional WIE (chief complaint) Dry eye syndrome of bilateral lacrimal glandsBacter ial conjunctivit is of left eye 1 Nestor Lira. [address] [facility] [address], [place], [place], [address], [place]. tel:[phone] Referring Provider: Pankaj Dewitt, [address], [place], [address] . tel:[phone] [facility], [address], [place], [place], [address], [place] tel:[phone] SEC [place] Professional Complete Exam (chief complaint) Pseudophakia of both eyesNexdtve age-related mclr degn, left eye, intermed dry stageExdtve age-rel mclr degn, right eye, with actv chrdl neovasPuncta te keratitis, bilateralVit reous degeneration , right eye 0 Nestor Lira. [address] [place], [address], . tel:[phone] Referring Provider: Pankaj Dewitt, [address] [facility] [place] [address], [place], [address] . tel:[phone] [facility], [address] [place] [address] [address], [place], [place], [address], [place] [phone] [place] Professional No Information 0 Nestor Lira. [address] [facility], [facility] A, [place], [place], [address], [place]. tel:[phone] Office/outpa tient Visit, [facility], [address] [place] [address] [address], [place], [place], [address], [place] tel:[phone] [place] Professional Complete Exam (chief complaint) Nexdtve age-related mclr degn, left eye, intermed dry stagePseudop hakia of both eyesExdtve age-rel mclr degn, right eye, with actv chrdl neovasPuncta te keratitis, bilateralVit reous degeneration , right eyeHistory of laser iridotomy Nestor Lira. [address] [facility], [facility] [address], [place], [place], [address], . tel:[phone] Referring Provider: Pankaj Dewitt, [address] [facility] [place] [address], [place], [address] . tel:[phone] [facility], [address] [place] [address] [address], [place], [place], [address], [place] tel:[phone] [place] Professional Complete Exam (chief complaint) Pseudophakia of both eyesAmblyopi a of left eyeNexdtve age-related mclr degn, left eye, intermed dry stagePunctat e keratitis, left eyeExdtve age-rel mclr degn, right eye, with actv chrdl neovas 9 Nestor Lira. [address], [place], [place], [address], [place]. tel:[phone] Referring Provider: Pankaj Dewitt, [address] [address] [facility] [address], [place], [address] . tel:[phone] [facility], [address], [place], [place], [address], [place] tel:[phone] [place] Professional Post-Op (chief complaint) Encounter for examination following surgery 8 Nestor Lira. [address], [address], [place], [place], [address], [place]. tel:[phone] Specialist : LOBO Pappas, [address] [place], [address]. tel:[phone] erring Provider: Pankaj Dewitt, [address] [facility] [address], [place], [address] . tel:[phone] Office/outpa tient Visit, [facility], [address] [place] [address] [address], [place], [place], [address], [place] tel:[phone] [place] Professional Blurry/decrea sed vision (chief complaint) No Information 8 Nestor Lira. [address] [facility] [address], [place], [place], [address], [place]. tel:[phone] Referring Provider: Mathew Rocha, [address], [place], [address] . tel:[phone] [facility], [address] [place] [address] [address], [place], [place], [address], [place] tel:[phone] [place] Professional Complete Exam (chief complaint) No Information 8 Nestor Lira. [address] [facility] [address], [place], [place], [address], [place]. tel:[phone] Referring Provider: Mathew Rocha, [address] [facility] [address], [place], [address] . tel:[phone] Office/outpa tient Visit, [facility], [address] [place] [address] [address], [place], [place], [address], tel:[phone] [place] Professional evaluation (chief complaint) No Information 7 Carlos Carmona. [address], [place], [place], [address], [place]. tel:[phone] Referring Provider: Mathew Rocha, [address], [place], [address] . tel:[phone] [facility], [address] [place] [address] [address], [place], [place], [address], [place] tel:[phone] [place] Professional Post-Op (chief complaint) No Information 6 Carlos Carmona. [address] [facility], [address] [place], [address], [place]. tel:[phone] Referring Provider: Mathew Rocha, [address], [place], [address] . tel:[phone] Office/outpa tient Visit, [facility], [address] [place] [address] [address], [place], [place], [address], [place] tel:[phone] [place] Professional YAG PC OS (chief complaint) No Information 6 Carlos Carmona. [address], [address], [place], [place], [address], [place]. tel:[phone] Referring Provider: Mathew Carlos Rocha, [address] [facility], [place], [address] . tel:[phone] Office/outpa tient Visit, Est [facility], [address], [place], [place], [address], [place] tel:[phone] [place] Professional 6 [place] IOL CHECK (chief complaint) No Information 5 Wankmacrina Carmona. [address], [place], [place], [address], [place]. tel:[phone] Referring Provider: Mathew Rocha, [address], [place], [address] . tel:[phone] [facility], [address], [place], [place], [address], [place] tel:[phone] [place] Professional F/u exam, postop (chief complaint) No Information 4 Wankmacrina Carmona. [address], [place], [place], [address], [place]. tel:[phone] Referring Provider: Mathew Rocha, [address], [place], [address] . tel:[phone] [facility], [address] [place] [address] [address], [place], [place], [address], [place] tel:[phone] [place] Professional F/u exam, postop (chief complaint) No Information 4 Wankmacrina Carmona. [address], [place], [place], [address], [place]. tel:[phone] Referring Provider: Mathew Rocha, [address], [place], [address] . tel:[phone] [facility], [address], [place], [place], [address], [place] tel:[phone] [facility] No Information 4 Matt Tinoco. [address], [address], [place], [place], [facility], . tel:[phone] Referring Provider: Mathew Rocha, [address], [place], [address] . tel:[phone] [facility], [address], [place], [place], [address], tel:[phone] SEC [place] No Information 4 Matt Tinoco. [address], [place], [place], [facility], [place]. tel:[phone] Referring Provider: Mathew Rocha, [address], [place], [address] . tel:[phone] [facility], [address], [place], [place], [address], [place] tel:[phone] [place] Professional F/u exam, postop (chief complaint) No Information 4 Matt Tinoco. [address], [address], [place], [place], [facility], . tel:[phone] Referring Provider: Mathew Rocha, [address], [place], [address] . tel:[phone] [facility], [address], [place], [place], [address], [place] tel:[phone] [place] Professional F/u exam, postop (chief complaint) No Information 3 0-201 4 Carlos Carmona. [address], [address] [place], [address], [place]. tel:[phone] Referring Provider: Mathew Rocha, [address], [place], [address] . tel:[phone] [facility], [address], [place], [place], [address], [place] tel:[phone] [facility] No Information 4 Matt Tinoco. [address] [facility], [address], [place], [place], [facility], . tel:[phone] Referring Provider: Mathew Rocha, [address] [facility] [address], [place], [address] . tel:[phone] [facility], [address], [place], [place], [address], [place] tel:[phone] SEC [place] [facility] No Information 4 Matt Tinoco. [address] [facility], [address], [place], [facility], . tel:[phone] Referring Provider: Mathew Rocha, [address] [facility] [address], [place], [address] . tel:[phone] Office/outpa tient Visit, [facility], [address], [place], [place], [address], [place] tel:[phone] SEC [place] Professional blurry vision (chief complaint) No Information 4 Matt Tinoco. [address] [facility], [address], [place], [place], [facility], . tel:[phone] Referring Provider: Mathew Rocha, [address] [facility] [address], [place], [address] . tel:[phone] Office/outpa tient Visit, [facility], [address], [place], [place], [address], [place] tel:[phone] [place] Professional Glaucoma, angle check (chief complaint) No Information 4 Carlos Carmona. [address], [place], [place], [address], [place]. tel:[phone] Referring Provider: Mathew Rodriguezmacrina Rocha, [address], [place], [address] . tel:[phone] [facility], [address], [place], [place], [address], [place] tel:[phone] SEC [place] Professional a comprehensive exam (chief complaint) No Information 4 Carlos Carmona. [address], [place], [place], [address], [place]. tel:[phone] Referring Provider: Mathew Rocha, [address], [place], [address] . tel:[phone] [facility], [address], [place], [place], [address], [place] tel:[phone] SEC [place] Professional double vision (chief complaint) No Information 4 Carlos Carmona. [address], [address] [place], [address], [place]. tel:[phone] Referring Provider: Mathew Carlos Rocha, [address], [place], [address] . tel:[phone] [facility], [address], [place], [place], [address], [place] tel:[phone] SEC [place] Luz YAG PI (chief complaint) No Information 4 Carlos Carmona. [address], [address] [place], [address], [place]. tel:[phone] Referring Provider: Mathew Carlos Rocha, [address], [place], [address] . tel:[phone] [facility], [address], [place], [place], [address], [place] tel:[phone] [place] Professional a comprehensive exam (chief complaint) No Information Feb- 4-201 3 Wankmacrina Carmona. [address] [facility], [address], [place], [place], [address], [place]. tel:[phone] Referring Provider: Mathew Rocha, [address] [facility] [address], [place], [address] . tel:[phone] [facility], [address], [place], [place], [address], [place] tel:[phone] [place] Professional No Information 3 Wankmacrina Carmona. [address] [facility], [address] [place], [address], [place]. tel:[phone] [facility], [address], [place], [place], [address], [place] tel:[phone] SEC [place] Professional No Information 2 Wanangella Carmona. [address] [facility], [address] [place], [address], [place]. tel:[phone] Referring Provider: Mathew Rocha, [address] [facility] [address], [place], [address] . tel:[phone] [facility], [address], [place], [place], [address], [place] tel:[phone] [place] Professional No Information 2 [employer] . [address] [facility], [address], [place], [place], [address], [place]. tel:[phone] Referring Provider: Mathew Rocha, [address] [facility] [address], [place], [address] . tel:[phone] [facility], [address], [place], [place], [address], [place] tel:[phone] SEC [place] Professional No Information Jul- 7-201 2 [employer] . [address] [facility], [address], [place], [address], [place]. tel:[phone] Referring Provider: Mathew Rocha, [address] [place] [address] [address], [place], [address] . tel:[phone] [facility], [address], [place], [place], [address], [place] tel:[phone] [place] Professional No Information 0-201 2 [employer] . [address] [facility], [address], [place], [place], [address], [place]. tel:[phone] Referring Provider: Mathew Rocha, [address] [place] [address] [address], [place], [address] . tel:[phone] [facility], [address], [place], [place], [address], [place] tel:[phone] [place] Professional No Information Feb-2 2-201 1 [employer] . [address] [facility], [address], [place], [place], [address], [place]. tel:[phone] Referring Provider: Mathew Rocha, [address] [facility] [address], [place], [address] . tel:[phone] sulting Provider: Savannah Hernandez, [address] [facility]. [address], [place], [address]. tel:[phone] [facility], [address] [place] [address] [address], [place], [place], [address], [place] tel:[phone] [place] Professional No Information 1 [employer] . [address] [facility], [address], [place], [place], [address], . tel:[phone] Referring Provider: Mathew Rocha, [address], [place], [address] . tel:[phone] sulting Provider: Savannah Hernandez, [address] [facility] [address], [place], [address]. tel:[phone] [facility], [address] [place] [address] [address], [place], [place], [address], [place] tel:[phone] [place] Professional No Information 1 Carlos Carmona. [address], [address] [place], [address], [place]. tel:[phone] Referring Provider: Mathew Rocha, [address] [place] [place], [address] . tel:[phone] [facility], [address] [place] [address] [address], [place], [place], [address], [place] tel:[phone] [facility] No Information 1 [employer] . [address] [facility], [address], [place], [place], [address], . tel:[phone] Referring Provider: Mathew Rocha, [address] [place] [place], [address] . tel:[phone] virgen Provider: Savannah Hernandez, [address], [place], [address]. tel:[phone] [facility], [address] [place] [address] [address], [place], [place], [address], tel:[phone] SEC [place] Professional No Information 1 [employer] . [address] [facility], [facility] [address], [place], [address], . tel:[phone] Referring Provider: Mathew Rocha, [address] [place], [address] . tel:[phone] [facility], [address] [place] [address] [address], [place], [place], [address], tel:[phone] [place] CAR[place] Professional No Information 0 [employer] . [address] [facility], [facility] [address], [place], [address], . tel:[phone] Referring Provider: Mathew Rocha, [address] [place], [address] . tel:[phone] [facility], [address], [place], [place], [address], tel:[phone] SEC Russ CARINA Professional No Information 0 Bakariangella Gomezald. [address] [facility] [place], [address], . tel:[phone] Family History Family Member Type Diagnosis Age At Onset No Information Payers Payer name Insurance type Covered green party ID Emily tovar(s) [facility] Mdcr Adv CI [id number] Social History Type Description Quantity Date Captured Comments Alcohol Use Details No Caffeine Use Details 2 cups per day Tobacco Use Status Current non-smoker Smoking Status Never smoker Non-Smoking Tobacco Use Details : No Details Available : No Details Available Sex Female Chief Complaint And Reason For Visit From encounter dated '05/04/2023 14:30'. Complete Exam (chief complaint). Description: The 83 year old patient presents for evaluation of Complete Exam in the right eye and left eye. Pt states she feels eyes are doing very well. Pt states she gets shots every [address] Andrade in [place] and [place] shots every 3 months. Pt denies any changes invision since last visit. Pt takes AREDS2 vitamins BID and uses Systane PF BID OU. Pt uses otc readers. Reason For Referral Reason For Referral No Information Plan Of Treatment Date Type Action Status Referral Referred To: Tasia Carroll MD [address] [place], [phone] Ordered: Referrals: Ophthalmology. Tasia Carroll MD. Evaluate and treat ordered Referral Referred To: Tasia Carroll [address] [place] [id number] Ordered: Referrals: Ophthalmology. Tasia Carroll. Evaluate and treat ordered Patient Education Dry Eyes: Care Instruct ions completed Patient Education Dry Eyes: Care Instruct ions completed Patient Education Age-Related Macular Deg eneration: Car~ completed Patient Education Pinkeye: Care Instructi ons completed Patient Education Age-Related Macular Deg eneration: Car~ completed Patient Education Age-Related Macular Deg eneration: Car~ completed History Of Present Illness Encounter Date Complaint History Of Prese nt Illness Complete Exam The 83 year old patient presents for evaluation of Complete Exam in the right eye and left eye. Pt states she feels eyes are doing very well. Pt states she gets shots every [address] Andrade in OS and OD shots every 3 months. Pt denies any changes in vision since last visit. Pt takes AREDS2 vitamins BID and uses Systane PF BID OU. Pt uses otc readers. Complete Exam The 82 year old patient presents for a complete exam ou. 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 Patient is due to see Dr. Andrade in June. Patient states eyes are doing ok. Patient wears prism glasses to drive. Complete Exam The 81 year old female presents for evaluation of Complete Exam in the right eye and left eye. Hx of PCIOL OU, YAG PC OU, YAG PI'S OU, PVD OD, Amblyopia OS, AMD OU s/p Injections OD, and Drusen OU w/ CME OD. Patient doesn't feel she sees as good reading, patient states she is wearing a +3.50. Patient uses an OTC dry eye gtt. Patient taking eye Vit BID po. Patient is followed bt Dr. Andrade and states she is having another injection done on . WIE The 80 year old female presents for evaluation of WIE in the left eye. Patient states over the weekend her left eye started watering, mattered shut yesterday morning and sore. Complete Exam The 79 year old female presents for evaluation of Complete Exam with OCT-MAC and Optomap in the right eye and left eye. Hx of PCIOL OU, YAG PC OU, Amblyopia OS, Alternating Esotropia OU, PLACIDO OU, PVD OD, AMD OU s/p injections OD (followed by RI). Pt reports stable VA, OU, since last appt. Complete Exam The 78 year old female presents for a complete exam ou. Patient has hx of yag pi ou, pseudo ou, yag pc OS, WET AMD OD and dry AMD OS. Patient seen Dr. Andrade yesterday for an injection and will see him again in 3 months. Patient takes AREDS bid po. Patient c/o floaters OD. Complete Exam The 78 year old female presents for evaluation of Complete Exam in the right eye and left eye. No OCT-MAC due to RI in office. Hx of PCIOL OU, YAG PC OU, LEYDA s/p YAG PI OU, PLACIDO OU, SPK OS, Amblyopia OS, Alternating Esotropia OU, Wet AMD OD s/p injections and followed by RI, and Dry AMD OS. Pt reports she thinks NV is a little worse, OU, since last exam, but not too bad, with OTC readers. Pt reports she wears DVO gls with Fresnel prism on OS, and she sees well for DV, OU. Pt reports she uses AFT QD OU and no pain, irritation or discomfort today, OU. Tech was unable to see how much prism is in OS, without prism rings for lensometer. Post-Op The 77 year old female presents for a 3 week post op YAG PC OD. Patient states she now has wet mac OD and sees Dr. Andrade and had an injection last Monday. Blurry/decreased vision The 77 y ear old female presents for a YAG PC OD evaluation per Dr. Crista Carreno. Patient saw her on Monday. Patient c/o vision is cloudy ou. Patient wears glasses with prism and did not bring them today.. Patient is Amblyopic OS and has hx of YAG PI ou. Complete Exam The 77 year old female presents for Complete Exam in the right eye and left eye. Hx of PC IOL OU, Yag PC OS, PCF OD, Alternating Esotropia OU, Punctate Keratitis OS Amblyopia OS, Drusen OU ,PLACIDO OU, and LEYDA s/p Yag PI OU. Pt states OU get sore sometimes, usually after using a computer. Pt using Systatane OU qam. Pt went to [facility] last yr and was given give a pr of glasses with a Fesnell prism that she only wears when driving. When wearing gls pt has no diplopia complaints. Pt states vision is clear and stable OU at distance and near x 1 yr. Pt sees [facility] for ARMD and was last seen 02/17 and has another appointment next Mo. evaluation The 76 year old female presents for evaluation for occasional double vision and images are side by side. Patient doesn't notice if it goes away if closes either eye because she is usually driving when it happens. Patient is taking AREDS 2. Post-Op The 75 year old female presents for a 1 month post op YAG PC OS. Patient states vision is better OS. Patient is taking AREDS 2 bid. YAG PC OS The 75 year old female presents for a YAG PC OS. Pt states v/a OS has decreased in the distance, trouble seeing roadsings, and is bothered by glare from bright lights. Pt c/o mild- moderate intermittent sharp aching pain behind OS x 6 months, getting more frequent. Pt uses Systane QAM OU. 6 MO IOL CHECK The 74 year old female presents for 6 MO IOL CHECK. Patient Hx IOL OS 01/27/2014, IOL OS 12/30/2013, and s/p YAG PI OU. Patient reports OU vision seems seems decreased OU for distance. Patient reports OU are very dry. Patient uses Systane Gel drops QAM OU. Patient does not use any other drops. Patient only uses OTCR, no glasses for distance. F/u exam, postop The 73 year old female presents for a 2 week Phaco c IOL OS (2nd eye). Pt states that yesterday OS vision was a little blurry. Pt states that Pred kurtz when she puts that in. Pt c/o of stabbing pain occasionally but that has subsided. Pt Hx of Phaco OD, PI OU. Pt using Pred. Pt using Pred. F/u exam, postop Patient present s for a 1 day post op CE OS. Patient to begin Poly and Pred qid OS and has refills from OD. Patient denies any pain or discomfort. F/u exam, postop The 73 year old female presents for 2 week post op Phaco with IOL OD (12/30/13). Pt states vision is improved, but OD feels dry. Pt used Prednisolone last time this Monday, she was confused by the different instructions on the bottle. Pt will resume Pred OD BID now. Pt has problems with glare and blurred vision OS. OS Cataract surgery on 01/27 F/u exam, postop Patient present s for a 1 day post op CE OD. Patient denies any pain or discomfort. Patient tobegin Poly and Pred qid OD. blurry vision Megannet presents for a cataract evaluation. Patinet c/o of glare at night and c/o decreased vision. Patient has a hx of YAG PI's OU. Patient wore contacts today. Glaucoma, angle check Patient pr esents for a 4 month IOP check. Patient would like a new RX for contacts. Patient c/o eyes itch and c/o floaters ou. Functional Status Date Functional Assessmen t No Information Instructions Date Instruction Additional Infor abby Impression/Plan Impression/Plan Impression/Plan Impression/Plan Impression/Plan Impression/Plan Impression/Plan Impression/Plan Impression/Plan Follow up - Return i n 1 year for complete exam, sooner if problems Impression/Plan - AR OU- Mild, dry OU- Stable- Discussed findings with patient- Continue AREDS PO BID- Monitor- Return in 1 year for complete exam, sooner if problemsAlternating ET- Intermittent double vision, significantly decreased with prism in current MRx- Continue with current MRx PRN- Treated at [facility], surgery has been discussed- Patient not interested in Sx at this time- MonitorDry Eye - Significant SPK OU- Increase ATs from QAM to TID OU- Monitor Nexdtve age-related mclr degn, bilateral, early dry stage - Surgery not indicated now. Related to Nexdtve age-related mclr degn, bilateral, early dry stage Alternating esotropi a - Educational material given Related to Alternating esotropia Follow up - refer to neuro scanning supervisor for evaluation of alternating esotropia Impression/Plan - Di scussed diagnosis in detail with patient. Sudden onset of alternating esotropia. 7 diopters of prism needed to resolve diplopia. 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 Pt reports she never had treatment. Pt understands this condition can be caused by medical conditions such as Diabetes. I would like the patient to be seen by a Neuro Publicity Writer. Refer pt to Tasia Carroll MD at [facility]. Impression/Plan - Go od result after YAG OS, will continue to monitor pt. Continue AREDS 2 formula for drusen. Return to clinic in 1 year for complete exam or sooner with any problems. Follow up - Return i n 1 year with Mathew Gonzalez M.D. for Complete Exam. After cataract, left eye - Educational material given Related to After cataract, left eye Impression/Plan - Di scussed diagnosis in detail with patient. Pt aware drusen and PCF OS as cause of decreased vision. Pt understands Yag PC OS is treatment for PCF. Patient elects to proceed with Yag PC. Recommend areds 2 formula, information given to patient with dosing. Pt also aware vision might not improve as much due to AMD. Return to clinic in 1 month for post op or sooner with any problems. Follow up - Return i n 1 month with Mathew Gonzalez M.D. for post op exam. - Diagnosis discusse d in detail with patient. Continue using artificial tears and tears gel. Samples given of Systane balance. Discussed dx with pt, and YAG PC for treatment. Pt understands visual requirements and aware at this time vision does not meet insurance guidelines for treatment and will monitor. Rec returning to clinic sooner if vision worsens. Pt needs BAT and BCVA on return prior to dilation. Return to clinic in 1 year for complete exam or sooner with any problems. Related to See list of assessments above - Return in 1 year w ith Mathew Gonzalez M.D. for Complete Exam Related to See list of assessments above - 2 week post op to s/p phaco with IOL OS. Healing well. Medication instillation and post op instructions reviewed. Advised OTC readers. Discussed PLACIDO and the use of ATs for treatment. RTC in 6 months. Related to See list of assessments above - Return in 6 months Related to See list of assessments above - One day s/p phaco with IOL OS. IOL in good position. Medication instillation and post op instructions reviewed. Pt understands shield use. RTC as scheduled or sooner if problems. Educational materials provided:about today's exam. Related to See list of assessments above - RTC as scheduled Related to Se e list of assessments above - 2 week post op to s/p phaco with IOL OD. Healing well. Medication instillation and post op instructions reviewed. OK to proceed with CE OS. Educational materials provided:about today's exam. Related to See list of assessments above - One day s/p phaco with IOL OD. IOL in good position. Medication instillation and post op instructions reviewed. Pt understands shield use. RTC as scheduled or sooner if problems. Educational materials provided:about today's exam. Related to See list of assessments above - RTC as scheduled Related to Se e list of assessments above - RTC as scheduled Related to Se e list of assessments above - Cataracts diagnosi s discussed with pt in detail. Discussed all risks, benefits, procedure and recovery regarding cataract sx. Patient desires to have surgery, recommend phacoemulsification with intraocular lens. Lifestyle lens options discussed. Schedule CE OD - ZCBOO Distance first. Pt Amblyopic OS. RTC as scheduled. Educational materials provided:about today's exam. 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
--- OUTSIDE RECORDS SUMMARY | 2024-04-07 05:44 | XMS_ITS | Encounter Summary ---
Author Organization [facility] Address [address] [place] [address] Care Team Providers Care Supervisor Stitching Department Name Role Phone Korey Randolph MD Primary Care Provider [phone] Reason for Visit * Reason Comments Follow Up Back pain Encounter Details Date Type Department Care Team (Latest Contact Info) Description 07/07/2023 10:00 AM CDT Office Visit [facility] Neurosurgery [address] [facility] [address] [facility] [address] [place] [phone] Carl Dorado MD [address] [facility] [address] [place] [phone] Degenerative spondylolisthesis (Primary Dx); Lumbar stenosis with neurogenic claudication Social History Tobacco Use Types Packs/Day Years [...] Sign Reading Time Taken Comments Blood Pressure 144/70 07/07/2023 9:43 AM CDT Pulse 79 07/07/2023 9:43 AM CDT Temperature 36.9 ??C (98.5 ??F) 07/07/2023 9:43 AM CD T Respiratory Rate 16 07/07/2023 9:43 AM CDT Oxygen Saturation 98% 07/07/2023 9:43 AM CDT Inhaled Oxygen Concentration - - Weight 65 kg (143 lb 3.2 oz) 07/07/2023 9:43 AM CDT Height 144.8 cm (4' 9 ) 07/07/2023 9:43 AM CDT Body Mass Index 30.99 07/07/2023 9:43 AM CDT documented in this encounter Progress Notes * Carl Dorado MD - 07/07/2023 10:35 AM CDT Images from the original note were not included. [facility] [address] [place] [address]. [place] [address] Visit Date: Attending: Office Phone: Office Fax: [...] Psychiatric/Behavioral: The patient is not hyperactive. Current Outpatient Medications: atorvastatin (LIPITOR) 10 mg tablet, Take 1 Tablet by mouth daily., Disp: , Rfl: pantoprazole (PROTONIX) 40 mg Tablet, Delayed Release (E.C.), TK 1 T PO BID, Disp: , Rfl: Vit C-Vit V-Rqbbju-KbZj-Lutein (PRESERVISION) 226-90-0.8-5 mg Capsule, Take 1 Capsule [...] Allergies Allergen Reactions Latex Rash Past Medical History: Diagnosis Date Back pain GERD without esophagitis Osteoporosis Past Surgical History: Procedure Laterality Date HX [...] Dorado MD, FAANS documented in this encounter Plan of Treatment Upcoming Encounters Date Type Department Care Team (Late st Contact Info) Description 03/14/2025 10:30 AM MUSSEL OPENER Office Visit [facility] Neurosurgery [facility] [address] [phone] Carl Dorado MD [address] [phone] documented as of this encounter Results [...] Diagnoses Diagnosis Degenerative spondylolisthesis- Primary Acquired spondylolisthesis Lumbar stenosis with neurogenic claudication Spinal stenosis, lumbar region, with neurogenic claudication Degenerative spondylolisthesis Acquired spondylolisthesis documented in this encounter Care Teams Supervisor Stitching Department Relationship Specialty Start Date End Date Korey Randolph MD [address] [place] [address] [address] AM[facility]O [facility] [place] [phone] PCP - General Internal Medicine 07/06/23 documented as of this encounter
--- OUTSIDE RECORDS SUMMARY | 2024-04-07 05:44 | XMS_ITS | Encounter Summary ---
Author Organization [facility] Address [address] [place] [address] Care Team Providers Care Fire Extinguisher Repairer Inspector Name Role Phone Korey Randolph MD Primary Care Provider [phone] Encounter Details Date Type Department Care Team (Late st Contact Info) Description 07/12/[address] 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 [address] [facility] [address] [place] [phone] Carl Dorado MD [address] [facility] [address] [place] [phone] documented as of this encounter Visit Diagnoses Diagnosis Chronic bilateral low back pain with bilateral sciatica- Primary documented in this encounter Care Teams Fire Extinguisher Repairer Inspector Relationship Specialty Start Date End Date Korey Randolph MD [address] [facility] [address] AMAT[address] [place] [phone] PCP - General Internal Medicine 07/06/23 documented as of this encounter
== END 2024-03-31 10:54 | disposition home or self-care (01) ==
PROVIDERS: Emergency Provider Nurse Practitioner Family; PCP Internal Medicine
DX: J40 Bronchitis, not specified as acute or chronic (principal); Z79.899 Other long term (current) drug therapy
CPT/HCPCS: 71046; 99213; G0463

== ENCOUNTER 2025-03-10 13:49 | Emergency (ER) | payer MEDICARE, SELFPAY ==
[2025-03-10 13:56] VITALS: BP 114/60; PULSE 79; RESP 20; TEMP 36.8; O2SAT 97
--- NOTE | 2025-03-10 14:19 | ED_ITS ---
HPI - URI/Sore Throat General Chief Complaint: Upper Respiratory Infection Stated Complaint: Cough/Back Pain Time Seen by Provider: 03/10/25 14:00 Source: patient and RN notes reviewed Mode of arrival: ambulatory Limitations: no limitations History of Present Illness HPI Narrative: 85-year-old female presents to the [facility] complaining of cough, congestion, nasal drainage, chest congestion, back pain with coughing last 3 weeks. Patient says symptoms are getting much better. Patient reports the cough is primarily dry nonproductive. Patient has any chest pain, difficulty breathing, wheezing, nausea vomiting, diarrhea, fevers, body aches, chills, or any other symptoms. Patient has not tried any [id number] to help with symptoms. Patient denies any significant past medical history. Related Data Home Medications ?Medication ?Instructions ?Recorded ?Confirmed ?Last Taken ?Type albuterol sulfate 90 mcg/actuation inhalation 03/31/24 Unknown History aerosol inhaler pantoprazole 40 mg tablet,delayed mg PO 03/10/25 Unkn own History release Allergies Allergy/AdvReac Type Severity Reaction Status Date / Time latex Allergy Unknown Unknown Verified 03/10/25 14:01 lovastatin Allergy Unknown STATINS Verified 03/10/25 14:01 CAUSE BRUISING NKFA Allergy Unknown Unknown Uncoded 05/24/22 15:15 Review of Systems Review of Systems: CONSTITUTIONAL: Denies fever, chills, or sweats. EYES: Denies visual changes, redness, or discharge. ENT: Denies rhinorrhea, sore throat, or otalgia. Positive for congestion and nasal drainage. CARDIOVASCULAR: Denies chest pain, palpitations, or edema. RESPIRATORY: Positive for cough. Negative for wheezing or dyspnea. GASTROINTESTINAL: Denies abdominal pain, nausea, vomiting, or diarrhea. GENITOURINARY: Denies dysuria or hematuria. SKIN: Denies rash or itching. MUSCULOSKELETAL: Denies back pain, joint pain, or myalgia. NEUROLOGIC: Denies headache, numbness, or weakness. PSYCHIATRIC: Denies anxiety or depression. All other systems reviewed are negative, except as documented in HPI. FORMERLY [facility] Past Medical History Medical History Lumbar spondylosis Low back pain Arthritis of finger Pain in right hand Spinal stenosis Sacroiliac pain Surgical History Surgical History Hx of cholecystectomy H/O shoulder surgery History of hysterectomy Family History Family History Other Acute myocardial infarction Breast cancer Diabetes mellitus Heart disease Hypertension Social History Social History Smoking status: Never smoker Alcohol intake: never Substance use: never Substance use type: does not use Lack of Transportation: No Lack of Food: Never True Current Housing: I Have Housing Concerned About Future Housing: No Difficulty Paying Gas/Electric Bills: No Difficulty Paying for Meds: No Currently Unemployed: No Education: Decline to Answer Difficulty w/ Childcare or Family Care: No Living arrangements: with family Comments At the time of my signature, I reviewed and agree with the nursing past medical, surgical, social, and family history. There is no relevant family history pertinent to the patient complaint. Exam Narrative: GENERAL: This is a well-nourished, well-developed adult, in no apparent distress. They are non ill-appearing, nontoxic appearing. Patient looks younger than stated age. HEAD: normocephalic, atraumatic. EYES: Sclera clear/white. Conjunctiva normal. Vision is grossly intact. Extraocular movements intact EARS: External ears normal, auditory canals clear and without drainage, TMs normal without perforation. Hearing grossly intact. NOSE: External nose normal with no obvious nasal discharge, nasal turbinates erythema without swelling, no rhinorrhea. THROAT: Mucous membranes moist, posterior pharynx erythematous. Postnasal drip present. Uvula midline. NECK: Neck supple, non-tender without lymphadenopathy, masses or thyromegaly. CARDIOVASCULAR: Regular rate and rhythm without murmurs, gallops, or rubs. RESPIRATORY: Clear to auscultation. Breath sounds equal bilaterally. No wheezes, rales, or rhonchi. SKIN: warm, Dry, intact with no suspicious lesions or rash, good texture and turgor. NEURO: awake, alert, and oriented to person, place and time. There were no obvious focal neurologic abnormalities. EXTREMITIES: No joint tenderness, effusion, or edema noted. BACK: Nontender without deformity. No CVA tenderness. Course Course Level of Care: Express Care Visit Vital Signs Vital signs: Vital Signs Temperature 98.2 F 03/10/25 13:56 Pulse Rate 79 03/10/25 13:56 Respiratory Rate 20 03/10/25 13:56 Blood Pressure 114/60 03/10/25 13:56 Pulse Oximetry 97 03/10/25 13:56 Oxygen Delivery Room Air 03/10/25 13:56 Temperature 98.2 F 03/10/25 13:56 Pulse Rate 79 03/10/25 13:56 Respiratory Rate 20 03/10/25 13:56 Blood Pressure 114/60 03/10/25 13:56 Pulse Oximetry 97 03/10/25 13:56 Oxygen Delivery Room Air 03/10/25 13:56 MDM MDM Narrative Medical decision making narrative: Patient likely has a sinobronchitis. Given length of symptoms will go ahead and treat her with Augmentin and prednisone. Will give her benzonatate tablets for cough. Patient nontoxic appearing, no apparent distress. Vital signs hemodynamically stable. Discussed physical exam findings. Advised supportive measures and signs/symptoms to go to the ER. Pt is appropriate for outpt treatment and f/u. Differential Diagnosis Differential Diagnosis: Differential diagnostic considerations for upper respiratory infection include upper respiratory infection, croup, otitis media, sinusitis, viral infection, bronchitis, pneumonia, influenza, pharyngitis, strep, uvulitis. Critical Care Time Critical Care Time Critical Care Time: No Discharge Plan Discharge Clinical Impression: Sinobronchitis Patient Disposition: Home Condition: Stable Instructions: Antibiotic Form, Sinusitis (ED) Additional Instructions: Take the antibiotics as directed and complete the course even if you start to feel better. Take prednisone as directed. Take benzonatate tablets as needed for cough. You may use a Neti pot saline rinse 3 times a day with lukewarm distilled water Continue to take Tylenol or Motrin as needed for fever or pain. Follow instructions on the bottle. Use a humidifier or vaporizer at night. Drink plenty of water. 8-10 glasses per day. Use flonase 2 times per day for 5 days then as needed Take mucinex 2 times per day and be sure to take with 8oz of water. Follow up with Primary provider in 3-5 days Please go to the ER if he develops any difficulty breathing, chest pain, vomiting, weakness, confusion, fevers, worsening symptoms, or any other serious concerns Patient Language: [place] Prescriptions: New benzonatate 200 mg capsule 200 mg PO TID PRN (Reason: cough) Qty: 20 0RF amoxicillin-pot clavulanate 875-125 mg tablet 1 tablet PO Q12H 7 Days Qty: 14 0RF prednisone 20 mg tablet 40 mg PO DAILY 5 Days Qty: 10 0RF No Action albuterol sulfate 90 mcg/actuation HFA aerosol inhaler INHALATION pantoprazole 40 mg tablet,delayed release (DR/EC) PO Follow-up/Referrals: Agustín,Korey Rocha MD [Primary Care Provider] Time of Disposition: 14:10
== END 2025-03-10 14:15 | disposition home or self-care (01) ==
PROVIDERS: PCP Internal Medicine
DX: J32.9 Chronic sinusitis, unspecified (principal); J40 Bronchitis, not specified as acute or chronic; M48.00 Spinal stenosis, site unspecified; M47.816 Spondylosis without myelopathy or radiculopathy, lumbar region
CPT/HCPCS: 99213; G0463